=== PATIENT | female | born 1950 | race Caucasian/White ===

== ENCOUNTER 2024-02-04 07:35 | Inpatient (IN) ==
--- NOTE | 2024-02-04 08:04 | Emergency Department Note ---
Impression & Plan Compression fracture of lumbosacral spine ADMIT ED Provider Note HPI: History obtained from patient and daughter at bedside. The patient is a 73-year-old female who presents emergency department with a chief complaint of ongoing back pain for the past several weeks. Patient was seen here in the emergency department 3 days ago and diagnosed with chronic appearing compression fractures in the lumbar spine following x-ray imaging. Patient states that today her pain was worse and she was having trouble getting out of bed. She think she might benefit from inpatient rehab. On arrival here to the ED the patient is otherwise hemodynamically stable, she is in no acute distress on my initial assessment. ROS: - Per HPI Differential Diagnosis: Compression fractures of the lumbar spine, cauda equina syndrome, spinal stenosis, sciatica, lumbar muscle strain, amongst other potential pathologies. *Outpatient medications and allergy history reviewed. PE: General: Alert HEENT: Normocephalic, trachea midline Eyes: Extraocular eye movement is intact, no scleral erythema Pulmonary: Clear to auscultation bilaterally, no wheezing Cardio: Regular rate and rhythm GI: Abdomen is soft to palpation : No suprapubic tenderness MSK: No evidence of trauma or malformation of the extremities, no edema, no midline tenderness of the lumbar spine with palpation, no step-off deformity Skin: No evidence of rash Neuro: Alert, no focal deficits, patient maintains motor and sensory function intact distally in the bilateral lower extremities Psychiatric: Cooperative INDEPENDENT INTERPRETATIONS: caretaker: (As interpreted by myself): - An order was placed for continuous cardiac monitoring - Patient was noted to be in sinus rhythm with a rate of 82 Interventions provided in ED: -IV morphine, IV Zofran, IV fluid bolus Medical Decision Making: IV was established and lab work obtained, patient was placed on cardiac rehabilitation program director. Lab work shows no leukocytosis, hemoglobin is 10.0, platelet count is normal, CMP does not show any critical findings. CT imaging of the lumbar spine was obtained that shows acute to subacute appearing endplate compression fracture at the L2 level. There are also chronic appearing compression fractures noted at L3 and L4. On my reassessment the patient states her pain is improved but she does not feel comfortable with discharge home as she believes she cannot ambulate and take care of herself at home appropriately. Patient requests assessment for inpatient physical therapy. I did consult case management and there are no beds available at [facility]. Case was therefore discussed with the [facility] hospitalist service and the patient was placed for admission in stable condition to the service of Dr. Mccrary. Consultants/Discussions held with other healthcare providers: -Dr. Mccrary, Hospitalist Disposition discussion held by myself with: -Patient and daughter Diagnosis: 1. Compression fractures of the lumbar spine, acute, L2 level 2. Multiple chronic appearing compression fractures of the lumbar spine, L3 and L4 level 3. Ambulatory dysfunction, acute Disposition: Admission Brad Colorado DO Emergency Medicine Past Med/Surg History Medical History (Updated 02/04/24 @ 12:53 by Brad Colorado DO) History of breast cancer GERD (gastroesophageal reflux disease) Persistent atrial fibrillation Vascular dementia Hypothyroidism History of stroke Diabetes mellitus Surgical History Hx of cholecystectomy H/O section H/O gastric bypass Left ulnar fracture s/p surgical repair 01/02/24 at [facility] Family History Other Breast cancer Diabetes Hypertension Social History Smoking Status: Never smoker Preferred Language: Bulgarian Feels Safe at Home: Yes Allergies Allergies Allergy/AdvReac Type Severity Reaction Status Date / Time Penicillins Allergy Intermediate Hives Verified 02/04/24 09:38 Sulfa (Sulfonamide AdvReac Severe SEVERE Verified 02/04/24 09:38 Antibiotics) NAUSEA Home Meds Home Medications Medication Instructions Recorded Confirmed apixaban 5 mg tablet (Eliquis) 5 mg PO AMHS 12/13/23 02/04/24 lorazepam 0.5 mg tablet (Ativan) 0.5 mg PO Q8 PRN Anxiety 12/13/23 02/04/24 metformin 500 mg tablet 0 mg PO BIDM 12/13/23 02/04/24 pantoprazole 40 mg tablet,delayed 40 mg PO QAM 12/13/23 02/04/24 release semaglutide 1 mg/dose (4 mg/3 mL) 1 mg subcut WK 12/13/23 02/04/24 subcutaneous pen injector (Ozempic) aspirin 81 mg tablet,delayed 81 mg PO DAILY 02/01/24 02/04/24 release atorvastatin 40 mg tablet 40 mg PO QAM 02/01/24 02/04/24 levothyroxine 125 mcg tablet 125 mcg PO DAILYBB 02/01/24 02/04/24 metoprolol tartrate 25 mg tablet 12.5 mg PO AMHS 02/01/24 02/04/24 oxycodone 5 mg tablet 5 mg PO BID PRN mod or severe pain 02/01/24 02/04/24 verapamil 80 mg tablet 80 mg PO AMHS 02/01/24 02/04/24 prednisone 20 mg tablet 20 mg PO QAM 02/04/24 02/04/24 Results & Data (ED) Vital Signs Vital Signs - 24 hr 02/04/24 07:40 02/04/24 08:13 02/04/24 08:41 Temperature 36.7 C Temperature Source Temporal Artery Scan Pulse Rate 78 78 Pulse Rate [Left Finger] 60 Pulse Rate from SpO2 Sensor Pulse Rhythm Regular Pulse Rhythm [Left Finger] Regular Pulse Strength Normal Pulse Strength [Left Finger] Normal Respiratory Rate 18 20 18 Respiratory Effort / Characteristics Non-Labored Spontaneous Non-Labored Spontaneous Respiratory Depth Normal Normal Respiratory Pattern Regular Regular Blood Pressure 180/69 H Blood Pressure [Right Arm] 184/97 H Blood Pressure Mean 106 Blood Pressure Mean [Right Arm] 126 Blood Pressure Position Sitting Blood Pressure Position [Right Arm] Sitting Pulse Oximetry 100 100 96 Oxygen Delivery Method Room Air Room Air Room Air Sepsis Recent Fever Within 48 Hours No Sepsis New/Unexplained Change in Mental Status No Sepsis Action Taken by Nursing No Action Required 02/04/24 08:41 02/04/24 09:00 02/04/24 09:07 Temperature Temperature Source Pulse Rate 74 68 64 Pulse Rate [Left Finger] Pulse Rate from SpO2 Sensor 69 68 Pulse Rhythm Pulse Rhythm [Left Finger] Pulse Strength Pulse Strength [Left Finger] Respiratory Rate 16 11 L Respiratory Effort / Characteristics Respiratory Depth Respiratory Pattern Blood Pressure 184/97 H 182/98 H Blood Pressure [Right Arm] Blood Pressure Mean 126 126 Blood Pressure Mean [Right Arm] Blood Pressure Position Blood Pressure Position [Right Arm] Pulse Oximetry 99 98 Oxygen Delivery Method Sepsis Recent Fever Within 48 Hours Sepsis New/Unexplained Change in Mental Status Sepsis Action Taken by Nursing 02/04/24 09:30 02/04/24 09:56 02/04/24 10:00 Temperature Temperature Source Pulse Rate 61 66 65 Pulse Rate [Left Finger] Pulse Rate from SpO2 Sensor 63 65 65 Pulse Rhythm Pulse Rhythm [Left Finger] Pulse Strength Pulse Strength [Left Finger] Respiratory Rate 12 15 19 Respiratory Effort / Characteristics Respiratory Depth Respiratory Pattern Blood Pressure 174/87 H 193/91 H 181/93 H Blood Pressure [Right Arm] Blood Pressure Mean 116 125 122 Blood Pressure Mean [Right Arm] Blood Pressure Position Blood Pressure Position [Right Arm] Pulse Oximetry 94 98 98 Oxygen Delivery Method Sepsis Recent Fever Within 48 Hours Sepsis New/Unexplained Change in Mental Status Sepsis Action Taken by Nursing Laboratory Data 02/04/24 08:05 02/04/24 08:05 Lab Results 02/04/24 Range/Units 08:05 WBC 8.82 (4.8-10.8) K/ul RBC 3.95 L (4.20-5.40) M/uL Hgb 10.0 L (12.0-16.0) g/dl Hct 32.5 L (37.0-47.0) % MCV 82.3 (80.0-100.0) fL MCH 25.3 (25.0-34.0) pg MCHC 30.8 L (32.0-36.0) g/dL RDW Std Deviation 46.5 H (36.4-46.3) fL RDW Coeff of Valentina 15.3 H (11.5-14.5) % Plt Count 204 (130-400) K/uL MPV 11.1 (9.4-12.4) fL Immature Gran % (Auto) 0.3 % Neut % (Auto) 71.5 % Lymph % (Auto) 19.7 % [place] % (Auto) 7.9 % Eos % (Auto) 0.1 % Baso % (Auto) 0.5 % Neut # (Auto) 6.30 (1.40-6.50) K/uL Lymph # (Auto) 1.74 (1.20-3.40) K/uL [place] # (Auto) 0.70 H (0.11-0.59) K/uL Eos # (Auto) 0.01 (0.00-0.50) K/uL Baso # (Auto) 0.04 (0.00-0.20) K/uL Immature Gran # (Auto) 0.03 (0.01-0.20) K/uL PT 11.1 (9.0-12.0) Seconds INR 1.0 (0.9-1.1) Sodium 139 (136-145) mmol/L Potassium 4.1 (3.5-5.1) mmol/L Chloride 106 (98-107) mmol/L Carbon Dioxide 26 (21-32) mmol/L Anion Gap 7 (3-11) BUN 15 (6-23) mg/dl Creatinine 0.67 (0.6-1.2) mg/dl Est Cr Clr Drug Dosing 67.6 ml/min Est GFR ( Amer) 100.4 ml/min Est GFR (Non-Af Amer) 86.6 ml/min BUN/Creatinine Ratio 22.4 H (10-20) Glucose 145 H (70-99(Fasting)) mg/dl Calcium 9.5 (8.6-10.3) mg/dl Total Bilirubin 0.4 (0.2-1.0) mg/dl AST 13 (13-39) U/L ALT 11 (7-52) U/L Alkaline Phosphatase 77 (34-104) U/L Total Protein 6.3 (6.0-8.3) gm/dl Albumin 3.6 (3.4-5.0) gm/dl Globulin 2.7 (2.5-4.0) gm/dl Albumin/Globulin Ratio 1.3 (0.9-2) Lipase 14 (11-82) U/L Administered Medications Discontinued Medications Sodium Chloride (Nss) 500 mls @ 999 mls/hr IV .Q31M ONE Stop: 02/04/24 08:58 Last Infusion: 02/04/24 09:17 Dose: Infused Documented By: Admin: 02/04/24 08:43 Dose: 999 mls/hr Documented By: AMEYA Morphine Sulfate (Morphine Sulfate 2 Mg/Ml Carp) 2 mg IV NOW STA Stop: 02/04/24 08:29 Last Admin: 02/04/24 08:43 Dose: 2 mg Documented By: AMEYA Ondansetron HCl (Ondansetron Inj 2 Mg/Ml 2 Ml Vial) 4 mg IV NOW STA Stop: 02/04/24 08:29 Last Admin: 02/04/24 08:43 Dose: 4 mg Documented By: AMEYA Imaging Data Radiologist's Impression: Lumbar Spine CT 02/04/24 08:01 CT SCAN OF THE LUMBAR SPINE WITHOUT IV CONTRAST CLINICAL HISTORY: Fall several weeks previous. Low back pain. COMPARISON STUDY: Lumbar spine radiographs dated 02/01/2024. TECHNIQUE: CT scan of the lumbar spine is performed from the lower thoracic spine to the sacrum. Images are reviewed in the axial, sagittal, and coronal planes. IV contrast was not administered for this examination. A dose lowering technique was utilized adhering to the principles of ALARA. CT DOSE: 1342.54 mGy.cm FINDINGS: The skeletal structures are osteopenic. There is an acute appearing inferior endplate compression fracture of L2. Paravertebral edema is seen at this level. There is only minimal loss of height. Inferior fragments are retropulsed by up to 5 mm. This does not contribute to significant central canal stenosis. There are chronic appearing inferior endplate compression deformities of L3 and L4, also with minimally retropulsed fragments. Vertebral body height is maintained at L1 and L5. Alignment is preserved. There is straightening of the lumbar lordosis. Anterior and lateral marginal osteophytes are seen throughout. The transverse and spinous processes appear intact. There is no spondylolysis. No lytic or blastic lesion is seen. There is minimal degenerative disc space narrowing throughout the lumbar spine. Posterior disc osteophyte complexes are noted at most levels. There is no CT evidence of large disc herniation or high-grade central canal stenosis. Facet arthropathy is noted in the lower lumbar region. The visualized sacrum and bony pelvis appear intact. There is fatty atrophy of the paraspinous musculature. The abdominal aorta is normal in course and caliber noting advanced atherosclerotic calcification. There are calcified splenic granulomas. IMPRESSION: 1. [id number] inferior endplate compression fracture of L2 as above. There is only minimal loss of height and mild retropulsion of fragments. This does not contribute to significant central canal stenosis. 2. Chronic appearing inferior endplate compression deformities are noted in L3 and L4. 3. Osteopenia and spondylotic changes above. ACT 112: Negative or not required by law. Dictated: 02/04/2024 8:55 AM Transcribed: 02/04/2024 9:12 AM Devyn [id number] [email or web address]_Charles Electronically signed by: Gurjit Madrigal M.D. 02/04/2024 9:19 AM Discharge Plan Visit Data Chief Complaint: Back Injury/Pain Stated Complaint: BACK PAIN ED Provider: Brad Colorado Discharge Problem: Compression fracture of lumbosacral spine Discharge Instructions Interventions: ED Discharge Assessment Last Done: 02/04/24 12:04 Discharge Problem: Compression fracture of lumbosacral spine Qualifiers: Encounter type: subsequent encounter Fracture type: closed Fracture healing: w ith routine healing Qualified Code(s): S32.000D - Wedge compression fracture of unspecified lumbar vertebra, subsequent encounter for fracture with routine healing
[2024-02-04 08:25] LABS: Basophils # (auto) 0.04 K/uL (0.00-0.20); Basophils % (auto) 0.5 %; Eosinophils # (auto) 0.01 K/uL (0.00-0.50); Eosinophils % (auto) 0.1 %; Hematocrit (blood only) 32.5 % (37.0-47.0); Immature Granulocytes # (auto) 0.03 K/uL (0.01-0.20); Immature Granulocytes % (auto) 0.3 %; Lymphocytes # (auto) 1.74 K/uL (1.20-3.40); Lymphocytes % (auto) 19.7 %; Mean Corpuscular Hemoglobin 25.3 pg (25.0-34.0); Mean Corpuscular Hgb Conc 30.8 g/dL (32.0-36.0); Mean Corpuscular Volume 82.3 fL (80.0-100.0); Mean Platelet Volume 11.1 fL (9.4-12.4); Monocytes % (auto) 7.9 %; Neutrophils % (auto) 71.5 %; Platelet Count 204 K/uL (130-400); RDW Coefficient of Variation 15.3 % (11.5-14.5); RDW Standard Deviation 46.5 fL (36.4-46.3); Red Blood Count 3.95 M/uL (4.20-5.40); White Blood Count 8.82 K/ul (4.8-10.8)
[2024-02-04] MEDS: ONDANSETRON INJ 2 MG/ML 2 ML VIAL IV STA (08:43)
[2024-02-04] MEDS: SODIUM CHLORIDE 0.9% 500 ML IV ONE (08:43)
[2024-02-04] MEDS: MoRPHine SULFATE 2 MG/ML CARP IV STA (08:43)
[2024-02-04 08:45] LABS: Albumin Globulin Ratio 1.3 (0.9-2); Albumin Level 3.6 gm/dl (3.4-5.0); BUN Creatinine Ratio 22.4 (10-20); Bilirubin,Total 0.4 mg/dl (0.2-1.0); Calcium 9.5 mg/dl (8.6-10.3); Creatinine Clr Calc Pharmacy 67.6 ml/min; Est GFR (African American) 100.4 ml/min; Est GFR (Non-African American) 86.6 ml/min; Globulin 2.7 gm/dl (2.5-4.0); Potassium 4.1 mmol/L (3.5-5.1); Total Protein 6.3 gm/dl (6.0-8.3)
[2024-02-04 08:58] LABS: Prothrombin Time 11.1 Seconds (9.0-12.0)
--- NOTE | 2024-02-04 09:20 | CT Scan Report ---
CT SCAN OF THE LUMBAR SPINE WITHOUT IV CONTRAST CLINICAL HISTORY: Fall several weeks previous. Low back pain. COMPARISON STUDY: Lumbar spine radiographs dated 02/01/2024. TECHNIQUE: CT scan of the lumbar spine is performed from the lower thoracic spine to the sacrum. Imag es are reviewed in the axial, sagittal, and coronal planes. IV contrast was not administered for this examination. A dose lowering technique was utilized adhering to the principles of ALARA. CT DOSE: 1342.54 mGy.cm FINDINGS: The skeletal structures are osteopenic. There is an acute appearing inferior endplate compr ession fracture of L2. Paravertebral edema is seen at this level. There is only minimal loss of heigh t. Inferior fragments are retropulsed by up to 5 mm. This does not contribute to significant central canal stenosis. There are chronic appearing inferior endplate compression deformities of L3 and L4, a lso with minimally retropulsed fragments. Vertebral body height is maintained at L1 and L5. Alignment is preserved. There is straightening of the lumbar lordosis. Anterior and lateral marginal osteophyt es are seen throughout. The transverse and spinous processes appear intact. There is no spondylolysis . No lytic or blastic lesion is seen. There is minimal degenerative disc space narrowing throughout t he lumbar spine. Posterior disc osteophyte complexes are noted at most levels. There is no CT evidenc e of large disc herniation or high-grade central canal stenosis. Facet arthropathy is noted in the lo wer lumbar region. The visualized sacrum and bony pelvis appear intact. There is fatty atrophy of the paraspinous musculature. The abdominal aorta is normal in course and caliber noting advanced atheros clerotic calcification. There are calcified splenic granulomas. IMPRESSION: 1. [id number] inferior endplate compression fracture of L2 as above. There is only minimal los s of height and mild retropulsion of fragments. This does not contribute to significant central canal stenosis. 2. Chronic appearing inferior endplate compression deformities are noted in L3 and L4. 3. Osteopenia and spondylotic changes above. ACT 112: Negative or not required by law. Dictated: 02/04/2024 8:55 AM Transcribed: 02/04/2024 9:12 AM Devyn [id number] [facility] Electronically signed by: Gurjit Madrigal M.D. 02/04/2024 9:19 AM
--- OUTSIDE RECORDS SUMMARY | 2024-02-04 09:20 | External Medical Summary | Summary of Care ---
Author Name Unknown Organization [facility] Address [address] [facility] [place] [address] Phone [phone] Care Team Providers Care Re Etcher Name Role Phone George Lynn DO Primary Care Provider [phone] Reason for Visit * Reason Onset Date Comments Medication Refill 02/01/2024 Encounter Details Date Type Department Care Team (Late st Contact Info) Description 02/01/2024 Refill Family Practice [facility] [address] [facility] [place] [address] George Lynn DO [address] [facility] [place] [address] Allergies Active Allergy Reactions Criticality Noted Date Comments Penicillins 12/17/2023 documented as of this encounter (statuses as of 02/03/2024) Medications Medication Sig Dispensed Refills Start Date End Date Status Apixaban 5 MG Oral Tablet (Eliquis) Take 1 Tablet by mouth in the morning and 1 Tablet before bedtime. 60 Tablet 0 12/30/2023 Active Aspirin 81 MG Oral Tablet Delayed Release (SB Low Dose ASA EC) Take 1 Tablet by mouth in the morning. 30 Tablet 0 12/30/2023 Active Atorvastatin Calcium 40 MG Oral Tablet (Lipitor) Take 1 Tablet by mouth in the morning. 30 Tablet 0 12/30/2023 Active Levothyroxine Sodium 125 MCG Oral Tablet (Levoxyl) Take 1 Tablet by mouth daily first thing in the morning. (at least 30 min prior to breakfast or other meds) 30 Tablet 0 12/30/2023 Active LORazepam 0.5 MG Oral Tablet (Ativan) Take 1 Tablet by mouth every 8 hours as needed for Anxiety. 90 Tablet 0 12/30/2023 Active metFORMIN HCl 500 MG Oral Tablet (Glucophage) Take 1 Tablet by mouth 2 times a day with morning and evening meals. 60 Tablet 0 12/30/2023 Active Metoprolol Tartrate 25 MG Oral Tablet (Lopressor) Take 0.5 Tablets by mouth in the morning and 0.5 Tablets before bedtime. 30 Tablet 0 12/30/2023 Active Ozempic (1 MG/DOSE) 2 MG/1.5ML Subcutaneous Solution Pen-injector (Semaglutide (1 MG/DOSE)) Inject 1 mg under the skin once a week. 2 Each 0 12/30/2023 Active Pantoprazole Sodium 40 MG Oral Tablet Delayed Release (Protonix) Take 1 Tablet by mouth in the morning. 30 Tablet 0 12/30/2023 Active oxyCODONE HCl 5 MG Oral Tablet (Oxy IR) Take 1 Tablet by mouth 2 times a day as needed for Pain, Moderate or Pain, Severe. 15 Tablet 0 01/29/2024 Active Verapamil HCl 80 MG Oral Tablet (Isoptin) Take 1 Tablet by mouth in the morning and 1 Tablet before bedtime. 60 Tablet 5 02/03/2024 Active Verapamil HCl 80 MG Oral Tablet (Isoptin) Take 1 Tablet by mouth in the morning and 1 Tablet before bedtime. 60 Tablet 0 12/30/2023 02/01/2024 Discontinue d(Refill) documented as of this encounter (statuses as of 02/03/2024) Active Problems Problem Noted Date Diagnosed Date Diabetes mellitus without complication 4 Postoperative hypothyroidism 12/30/2023 Vascular dementia 12/30/2023 Pure hypercholesterolemia 12/30/2023 History of thyroid cancer 12/30/2023 History of breast cancer 12/30/2023 Longstanding persistent atrial fibrillation 12/18 Gastroesophageal reflux disease 12/30/2023 Pre-operative general physical examination 12/29 Olecranon fracture, left, cl osed, with routine healing, subsequent encounter 12/23/2023 Overview: Changed initial encounter to subsequent 01/15/24 HL documented as of this encounter (statuses as of 02/03/2024) Social History Tobacco Use Types Packs/Day Years Used Date Smoking Tobacco: Never Smokeless Tobacco: Never Alcohol Use Standard Drinks/Week Comments Never 0 (1 standard drink = 0.6 oz pur e alcohol) PHQ-2 Answer Date Recorded PHQ Adult Total Score 0 01/08/2024 Hunger Vital Sign Answer Date Recorded Within the past 12 months, y ou worried that your food would run out before you got the money to buy more. Never true 01/14/20 24 Within the past 12 months, t he food you bought just didn't last and you didn't have money to get more. Never true 01/14/2024 Sex and Gender Information Value Date Recorded Sex Assigned at Female 01/27/2024 8:14 PM EDT Gender Identity Female 01/27/2024 8:14 PM EDT Sexual Orientation Straight 01/27/2024 8: 14 PM EDT Job Start Date Occupation Industry Not on file Not on file Not on file documented as of this encounter Miscellaneous Notes * Telephone Encounter - George Lynn DO - 02/03/2024 1:40 PM EDTSigned Prescriptions: Disp Refills Verapamil HCl 80 MG Oral Tablet (Isoptin) 60 Tab*5 Sig: Take 1 Tablet by mouth in the morning and 1 Tablet before bedtime. Authorizing Provider: GEORGE LYNN * Telephone Encounter - Griselda Lucio [facility] - 02/03/2024 9:54 AM EDTPending Prescriptions: Disp Refills Verapamil HCl 80 MG Oral Tablet (Isoptin) 60 Tab*5 Sig: Take 1 Tablet by mouth in the morning and 1 Tablet before bedtime. * Telephone Encounter - Griselda Lucio RPh - 02/03/2024 9:53 AM EDT Please approve if patient is to continue. Did you pend patient's preferred pharmacy and medication before forwarding?yes Pharmacy: [facility] [id number] [address] Pending Prescriptions: Disp Refills Verapamil HCl 80 MG Oral Tablet (Isoptin) 60 Tab*5 Sig: Take 1 Tablet by mouth in the morning and 1 Tablet before bedtime. Last Visit: 12/30/2023 (in office), Visit date not found (telemedicine) Next Visit: 07/13/2024 If no future appointments scheduled, and last appointment is greater than a year ago, please schedule patient for a follow-up appointment Last date the medication was ordered: 12/30/23 Is this request for a controlled substance?No Urine Drug Screen:No results found for this or any previous visit. Patient Phone Numbers Labs: Lab Results Component Value Date/Time CREAT 0.7 12/30/2023 10:51 AM POTASSIUM 5.1 12/30/2023 10:51 AM TSH 1.16 12/30/2023 10:51 AM ALT 14 12/30/2023 10:51 AM HGBA1C 7.0 (H) 12/30/2023 10:51 AM HGBA1C 7.0 (H) 08/05/2023 04:47 AM documented in this encounter Plan of Treatment Upcoming Encounters Date Type Department Care Team (Late st Contact Info) Description 02/09/2024 9:30 AM EDT Pharmacy Family Practice [address] [facility] [address] [place] [address] College, Pharmacist [address] [place] [address] 02/09/2024 10:00 AM EDT Office Visit Family Practice [address] [address] [place] [address] Rachel Hooks, DO [address] [facility] [place] [address] 02/17/2024 12:45 PM EDT Office Visit Orthopaedics [facility] [address] [facility] [address] Zachary Reese, DO [address] [facility] [place] [address] 03/02/2024 1:00 PM EDT Office Visit Cardiology, [facility] [address] [place] [address] Deondre Gordillo, DO [address] [facility] [place] [address] 07/13/2024 5:40 PM EDT Office Visit Family Practice [facility] [address] [place] [address] George Lynn, DO 200 [place] [address] Health Maintenance Due Date Last Done Comments Lipid Panel 1949 Albumin/Creatinine Ratio 1967 Diabetic Eye Exam 1967 Diabetic Foot Exam 1967 Hepatitis C Screening 1967 DTaP,Tdap,and Td Vaccines (1 - Tdap) 1968 Cologuard 1994 Colonoscopy 1994 Colorectal Cancer Screening 1994 Fecal Occult Blood Test 1994 Sigmoidoscopy 1994 Zoster Vaccines (2 of 3) 11/19/2010 09/24/2010 COVID-19 Vaccine ( season) 2023 04/10/2022, 11/02/2021, 02/05/2021, Additional history exists Mammogram 03/19/2024 03/19/2023, 02/18, 03/30/2021, Additional history exists HbA1c 07/01/2024 12/30/2023, 07/20, 03/25/2023, Additional history exists GFR 12/29/2024 12/30/2023 TSH 12/29/2024 12/30/2023 Depression Screening 01/07/2025 01/08/2024 DXA Scan 03/05/2031 03/05/2021, 02/17, 10/03/2016, Additional history exists Pneumococcal Vaccine: 65+ Years Completed 02/08/2019, 2015, 08/24/2013 Influenza Vaccine (FLU shot) Completed 12/2022, 06/26/2022, 07/09/2021, Additional history exists GARDASIL-HPV IMMUNIZATION SERIES Aged Out No longer eligible based on patient's age to complete this topic Hepatitis B Aged Out No longer eligi ble based on patient's age to complete this topic MENINGOCOCCAL (MENACTRA/MENVEO) Aged Out No longer eligible based on patient's age to complete this topic documented as of this encounter Medical Devices Implanted Type Area Soccer Coach Device Identifier Shelf Expiration Date Model / Serial / Lot Olecranon Plate Implanted:Qty: 1 on 01/02/2024 by Zachary Reese DO at [facility] Left: Elbow [id number] / / Screw Bn T10 Ft [employer] Lk 3.5x18mm - [id number] Implanted:Qty: 2 on 01/02/2024 by Zachary Reese DO at [facility] Left: Elbow ADILIA : ORTHOPAEDICS [id number] / / Screw Bn T10 Ft [address] Lk 3.5x20mm - [id number] Implanted:Qty: 1 on 01/02/2024 by Zachary Reese DO at [facility] Left: Elbow ADILIA : ORTHOPAEDICS [id number] / / Screw Cortical 3.5x20 - [id number] Implanted:Qty: 1 on 01/02/2024 by Zachary Reese DO at [facility] Left: Elbow AIDLIA : ORTHOPAEDICS [id number] / / Screw Bn T10 Ft [address] Lk 3.5x50mm - [id number] Implanted:Qty: 1 on 01/02/2024 by Zachary Reese DO at OR [facility] Left: Elbow ADILIA : ORTHOPAEDICS [id number] / / documented as of this encounter Advance Directives Latest Code Status on File Code Status Date Activated Date Inactivated Comments Full Code 01/02/2024 11:34 AM 01/02/2024 5:05 PM This order reflects the patients wishes and were consensually agreed upon. Question Answer Comments Discussion of Advance Directives occurred with: Not Discussed due to patient's condition Care Teams Re Etcher Relationship Specialty Start Date End Date George Lynn DO [address] [place] [address] PCP - General Family Medicine 01/02/24 documented as of this encounter
--- NOTE | 2024-02-04 10:18 | History & Physical Report ---
Date of Service February 04, 2024 Assessment & Plan (1) Lower back pain: (2) Lumbar compression fracture: (3) Lightheadedness: (4) Vascular dementia: (5) Diabetes mellitus: (6) Persistent atrial fibrillation: (7) History of stroke: (8) GERD (gastroesophageal reflux disease): (9) Hypothyroidism: Plan This is a 73yo F with a PMH of atrial fibrillation on anticoagulation, history of stroke, DM II, hypothyroidism, vascular dementia, h/o breast cancer s/p lumpectomy, chemo and XRT, and other medical problems listed below who presents with worsening back pain over the past few days and was found to have an L2 compression fracture. DVT Ppx: Eliquis Code status: FULL CODE PCP: Roshni Cobb Dispo: Admit to med/tele, likely to need rehab placement I spent a total of 75 minutes coordinating, documenting, and providing care for this patient excluding time spent in the performance of separately billed services. Patient seen in collaboration with Dr. Mccrary. Please see addendum. History of Present Illness Chief Complaint: back pain Primary Care Provider: Uriel Cobb, This is a 73yo F with a PMH of atrial fibrillation on anticoagulation, history of stroke, DM II, hypothyroidism, vascular dementia, h/o breast cancer s/p lumpectomy, chemo and XRT, and other medical problems listed below who presents with worsening back pain over the past few days. Patient had a fall at home 3 weeks ago causing elbow injury that required surgery. Left arm is in sling and has been improving but presented to ED a few days ago with worsening back pain. Pain is across in a bandlike distribution near waistband. Also having more ambulatory dysfunction at home and daughter feels she is unsafe to be ambulating without assistance. Does not use a cane/walker at baseline. Daughter lives nearby but feels that patient needs to go to rehab. No ambulatory dysfunction at baseline. Noting lightheadedness and feeling off balance with ambulation, needing to grab onto scanlon for support. Denies any CP or palpitations. Has been taking all meds as prescribed as well as prednisone 20mg daily and oxycodone PRN prescribed by ED a few days ago for back pain. No F/C, N/V, abd pain, dysuria, diarrhea or constipation. Allergies Allergy/AdvReac Type Severity Reaction Status Date / Time Penicillins Allergy Intermediate Hives Verified 02/04/24 09:38 Sulfa (Sulfonamide AdvReac Severe SEVERE Verified 02/04/24 09:38 Antibiotics) NAUSEA Home Medications Medication Instructions Recorded Confirmed Type apixaban 5 mg tablet (Eliquis) 5 mg PO AMHS 12/13/23 02/04/24 History lorazepam 0.5 mg tablet (Ativan) 0.5 mg PO Q8 PRN Anxiety 12/13/23 02/04/24 History metformin 500 mg tablet 0 mg PO BIDM 12/13/23 02/04/24 History pantoprazole 40 mg tablet,delayed 40 mg PO QAM 12/13/23 02/04/24 History release semaglutide 1 mg/dose (4 mg/3 mL) 1 mg subcut WK 12/13/23 02/04/24 History subcutaneous pen injector (Ozempic) aspirin 81 mg tablet,delayed 81 mg PO DAILY 02/01/24 02/04/24 History release atorvastatin 40 mg tablet 40 mg PO QAM 02/01/24 02/04/24 History levothyroxine 125 mcg tablet 125 mcg PO DAILYBB 02/01/24 02/04/24 History metoprolol tartrate 25 mg tablet 12.5 mg PO AMHS 02/01/24 02/04/24 History oxycodone 5 mg tablet 5 mg PO BID PRN mod or severe pain 02/01/24 02/04/24 History verapamil 80 mg tablet 80 mg PO AMHS 02/01/24 02/04/24 History prednisone 20 mg tablet 20 mg PO QAM 02/04/24 02/04/24 History Past Med/Surg History Medical History (Updated 02/04/24 @ 11:30 by Delfina Jernigan PA-C) History of breast cancer GERD (gastroesophageal reflux disease) Persistent atrial fibrillation Vascular dementia Hypothyroidism History of stroke Diabetes mellitus Surgical History Hx of cholecystectomy H/O section H/O gastric bypass Left ulnar fracture s/p surgical repair 01/02/24 at [facility] Family History Other Breast cancer Diabetes Hypertension Social History Smoking Status: Never smoker Preferred Language: Romansh Feels Safe at Home: Yes Review of Systems Review of Systems: At least ten systems reviewed and negative except as noted in the HPI. Physical Exam Physical Exam: Please see Dr. Mccrary' addendum for physical exam. Results & Data Results & Data Vital Signs (Past 12 Hours) Vital Signs Temp Pulse Pulse Resp BP BP Pulse Ox 02/04/24 09:07 64 02/04/24 08:41 60 18 184/97 H 96 02/04/24 08:13 78 20 100 02/04/24 07:40 36.7 C 78 18 180/69 H 100 O2 Del Method 02/04/24 09:07 02/04/24 08:41 Room Air 02/04/24 08:13 Room Air 02/04/24 07:40 Room Air Laboratory Results Short CBC 02/04/24 Range/Units 08:05 WBC 8.82 (4.8-10.8) K/ul Hgb 10.0 L (12.0-16.0) g/dl Hct 32.5 L (37.0-47.0) % Plt Count 204 (130-400) K/uL BMP 02/04/24 08:05 Sodium 139 Potassium 4.1 Chloride 106 Carbon Dioxide 26 BUN 15 Creatinine 0.67 Glucose 145 H Calcium 9.5 Liver Function 02/04/24 Range/Units 08:05 Total Bilirubin 0.4 (0.2-1.0) mg/dl AST 13 (13-39) U/L ALT 11 (7-52) U/L Alkaline Phosphatase 77 (34-104) U/L Albumin 3.6 (3.4-5.0) gm/dl Diagnostic Findings Lumbar Spine CT 02/04/24 08:01 CT SCAN OF THE LUMBAR SPINE WITHOUT IV CONTRAST CLINICAL HISTORY: Fall several weeks previous. Low back pain. COMPARISON STUDY: Lumbar spine radiographs dated 02/01/2024. TECHNIQUE: CT scan of the lumbar spine is performed from the lower thoracic spine to the sacrum. Images are reviewed in the axial, sagittal, and coronal planes. IV contrast was not administered for this examination. A dose lowering technique was utilized adhering to the principles of ALARA. CT DOSE: 1342.54 mGy.cm FINDINGS: The skeletal structures are osteopenic. There is an acute appearing inferior endplate compression fracture of L2. Paravertebral edema is seen at this level. There is only minimal loss of height. Inferior fragments are retropulsed by up to 5 mm. This does not contribute to significant central canal stenosis. There are chronic appearing inferior endplate compression deformities of L3 and L4, also with minimally retropulsed fragments. Vertebral body height is maintained at L1 and L5. Alignment is preserved. There is straightening of the lumbar lordosis. Anterior and lateral marginal osteophytes are seen throughout. The transverse and spinous processes appear intact. There is no spondylolysis. No lytic or blastic lesion is seen. There is minimal degenerative disc space narrowing throughout the lumbar spine. Posterior disc osteophyte complexes are noted at most levels. There is no CT evidence of large disc herniation or high-grade central canal stenosis. Facet arthropathy is noted in the lower lumbar region. The visualized sacrum and bony pelvis appear intact. There is fatty atrophy of the paraspinous musculature. The abdominal aorta is normal in course and caliber noting advanced atherosclerotic calcification. There are calcified splenic granulomas. IMPRESSION: 1. [id number] inferior endplate compression fracture of L2 as above. There is only minimal loss of height and mild retropulsion of fragments. This does not contribute to significant central canal stenosis. 2. Chronic appearing inferior endplate compression deformities are noted in L3 and L4. 3. Osteopenia and spondylotic changes above. ACT 112: Negative or not required by law. Dictated: 02/04/2024 8:55 AM Transcribed: 02/04/2024 9:12 AM Devyn [id number] [facility] Electronically signed by: Gurjit Madrigal M.D. 02/04/2024 9:19 AM ECG Additional Comments: admission EKG pending Supervising Physician Co-Signing Physician Notes I have seen and discussed the case with the collaborating advanced practitioner. I agree with the above H&P. I have reviewed and confirmed the patients medical history, the findings on physical examination, and the patients diagnosis and treatment plan with Delon OTTO and agree with the information documented. Ms. Farris is a 73 year old woman with history of recent left elbow fracture s/p ORIF 01/02/2024, HTN, prior gastric bypass, PAF on Eliquis, prior cardioembolic stroke per history, HLD and other medical problems below admitted for acute back pain 2/2 compression fractures. Patient presented to ED on 01/31 and started on prednisone for compression fracture, however, pain continued to worsen. Pain is predominately across low back without any radiculopathy, urinary or bowel perea ges. Patient otherwise endorses intermittent dizziness--this can happen at rest, in the midst of walking, or seated. She denies any vision or neurologic deficits. She denies prodromal symptoms. The symptoms are quick and resolve. Patient asymptomatic on exam, last episode days prior. Denies any missed medications. No chest pain, palpitations, fevers, chills, or other acute symptoms GENERAL APPEARANCE: AxOx4, generally well-appearing F, no acute distress. HEENT: NC, AT. MMM. EOMI, clear conjunctiva, oropharynx clear. NECK: Supple without lymphadenopathy. No stiffness or restricted ROM. HEART: Normal rate and regular rhythm, normal S1/S1, +KAMERON LUNGS: CTAB, moving air well. No crackles or wheezes are heard. ABDOMEN: Soft, nontender, nondistended with good bowel sounds heard. BACK: No CVAT, no obvious deformity. EXTREMITIES: Without cyanosis, clubbing. Nonpitting edema of ankles, at baseline. Left arm in sling. NEUROLOGICAL: Grossly nonfocal. Alert and oriented, moving all 4 extremities. CN not formally tested but appear grossly intact. Skin: Warm and dry without any rash. #Compression Fractures, L2 -CT with L2 compression fracture, no stenosis or cord compromise Orthotics for TLSO Pain management, schedule tylenol, 2.5-5 oxycodone prn, lidocaine patch PT/OT Pending placement with encompass Check Vit D in am Complete steroid burst #Recent mechanical fall s/p left elbow fracture #s/p left olecranon ORIF 01/02/2024 Left elbow in sling, follow up last with Ortho on 01/15 "passive range of motion through her left elbow with the assistance of her right arm" #Dizziness Reports intermittent dizziness, endorses compliance with medication No neurologic deficits, prior stroke 2/2 a fib marked by olfactory changes, resolved Orthostatics Monitor blood pressure and tele Resume metoprolol On verapamil 80mg BID, will resume half dosing and monitor blood pressure Monitor blood glucose as reportedly home BG in low 100s b12 and folate in am #HTN Verapamil 80mg BID, start at reduced 40/40 dosing given dizziness to assess for orthostasis Increase to home dosing as tolerated On admission, patient did not take medications #Paroxysmal Atrial Fibrillation Currently normal sinus, no recent ECHO on file KAMERON murmur on exam, noted in OP exam Given dizziness, will order ECHO Continue Metoprolol 12.5 mg BID for rate control Continue Eliquis Monitor on tele #Chronic anemia, microcytic #History of gastric bypass last b12 in 2021 relatively low at 275, folate in 2021 40 Ferritin in 2018 12, history of iron deficiency not on supplements -Anemia labs in am for optimization #Prior stroke, cardioembolic #HLD Eliquis as above Continue statin #DMTII On metformin and Ozempic Records report glucose in low 100s Given dizziness, consider hypoglycemia as contributing cause A1C: 7 12/2023 SSI while admitted, hold home oral regimen #Hypothyroidism TSH 12/2023 1.16 Continue synthroid DVT eliquis Admit med tele I spent a total of 35 minutes coordinating, documenting, and providing care for this patient excluding time spent in the performance of separately billed services. All of the aforementioned completed outside of collaborating with the assigned advanced practitioner for a full treatment plan. I have reviewed the advanced practitioner's documentation, and I agree with, and take responsibility for the plan of care (1) Lower back pain Back pain laterality: midline Chronicity: acute Sciatica presence: without sciatica Qualified Code(s): M54.50 - Low back pain, unspecified (2) Lumbar compression fracture Encounter type: initial encounter Lumbar vertebra fracture level: unspecified lumbar vertebra Qualified Code(s): S32.000A - Wedge compression fracture of unspecified lumbar vertebra, initial encounter for closed fracture
[2024-02-04] MEDS ORDERED: APIXABAN 5 MG TABLET PO SCH (10:45)
[2024-02-04] MEDS ORDERED: CARBOHYDRATES FOR HYPOGLYCEMIA PO PRN (11:08)
[2024-02-04] MEDS ORDERED: GLUCAGON FOR INJ 1 MG VIAL SQ PRN (11:08)
[2024-02-04] MEDS ORDERED: GLUCOSE 10 TAB/TUBE PO PRN (11:08)
[2024-02-04] MEDS ORDERED: GLUCOSE 40% GEL 15 GM TUBE PO PRN (11:08)
[2024-02-04] MEDS ORDERED: DEXTROSE 50% 50 ML SYRINGE IV PRN (11:08)
[2024-02-04] MEDS ORDERED: ONDANSETRON INJ 2 MG/ML 2 ML VIAL IV PRN (12:30)
[2024-02-04] MEDS: INSULIN ASPART PER UNIT CHARGE SC SCH (13:43)
[2024-02-04] MEDS: LIDOCAINE 5% 1 PATCH TD STA (13:44)
[2024-02-04] MEDS: APIXABAN 5 MG TABLET PO ONE (13:44)
[2024-02-04] MEDS: METOPROLOL TARTRATE 25 MG TAB PO ONE (13:44)
[2024-02-04] MEDS: VERAPAMIL HCL 180 MG TABCR PO STA (13:45)
[2024-02-04] MEDS: ACETAMINOPHEN 500 MG TAB PO SCH (13:45)
[2024-02-04] MEDS: oxyCODONE HCL IR 5 MG TAB (IMMEDIATE RELEASE) PO PRN (16:55)
[2024-02-04 17:37] LABS: Appearance Urine Clear (Clear); Bilirubin Urine Negative (Negative); Blood Urine Negative (Negative); Color Urine Yellow; Glucose Urine UA Negative (Negative); Ketones Urine Negative (Negative); Leukocyte Esterase Urine Negative (Negative); Nitrite Urine Negative (Negative); Protein Urine Negative (Negative); Specific Gravity Urine 1.006 (1.000-1.030); Urobilinogen Urine Negative (Negative)
[2024-02-04] MEDS: VERAPAMIL HCL 40 MG TAB PO SCH (20:05)
[2024-02-04] MEDS: METOPROLOL TARTRATE 25 MG TAB PO SCH (20:05)
[2024-02-04] MEDS: APIXABAN 5 MG TABLET PO SCH (20:05)
[2024-02-04] MEDS ORDERED: VERAPAMIL HCL 180 MG TABCR PO SCH (21:00)
[2024-02-04] MEDS ORDERED: VERAPAMIL HCL 40 MG TAB PO SCH (21:00)
[2024-02-05] MEDS: LEVOTHYROXINE SODIUM 125 MCG TABLET PO SCH (05:07)
[2024-02-05 07:33] LABS: Hematocrit (blood only) 32.2 % (37.0-47.0); Hemoglobin 10.1 g/dl (12.0-16.0); Mean Corpuscular Hemoglobin 25.4 pg (25.0-34.0); Mean Corpuscular Hgb Conc 31.4 g/dL (32.0-36.0); Mean Corpuscular Volume 80.9 fL (80.0-100.0); Mean Platelet Volume 10.7 fL (9.4-12.4); Platelet Count 206 K/uL (130-400); RDW Coefficient of Variation 15.5 % (11.5-14.5); RDW Standard Deviation 45.8 fL (36.4-46.3); Red Blood Count 3.98 M/uL (4.20-5.40); White Blood Count 8.42 K/ul (4.8-10.8)
[2024-02-05 07:54] LABS: BUN Creatinine Ratio 22.9 (10-20); Calcium 9.1 mg/dl (8.6-10.3); Creatinine Clr Calc Pharmacy 65.9 ml/min; Est GFR (African American) 98.9 ml/min; Est GFR (Non-African American) 85.4 ml/min; Potassium 4.2 mmol/L (3.5-5.1)
[2024-02-05 08:13] LABS: Ferritin 15.4 ng/ml (8-388)
[2024-02-05] MEDS: PANTOprazole 40 MG TAB PO SCH (08:16)
[2024-02-05] MEDS: predniSONE 20 MG TAB PO SCH (08:16)
[2024-02-05] MEDS: ATORVASTATIN 40 MG TAB PO SCH (08:16)
[2024-02-05 08:19] LABS: Folate (Folic Acid),Ser orPlas > 22.30 ng/ml (>5.38); Vitamin B12 150 pg/ml (180-914)
[2024-02-05] MEDS: CYANOCOBALAMIN 1000 MCG/ML VIAL IM ONE (09:26)
[2024-02-05] MEDS: FERROUS SULFATE 325 MG TAB PO SCH (09:26)
[2024-02-05] MEDS: IRON SUCROSE 300 MG in SODIUM CHLORIDE 0.9% 250 ML IV ONE (09:27)
[2024-02-05] MEDS: CHOLECALCIFEROL 125 MCG (5,000 UNITS) TAB PO SCH (10:26)
--- NOTE | 2024-02-05 15:41 | Hospitalist Progress Note ---
Date of Service February 05, 2024 Assessment & Plan (1) Lower back pain: (2) Lumbar compression fracture: (3) Lightheadedness: (4) Vascular dementia: (5) Diabetes mellitus: (6) Persistent atrial fibrillation: (7) History of stroke: (8) GERD (gastroesophageal reflux disease): (9) Hypothyroidism: Plan This is a 73yo F with a PMH of atrial fibrillation on anticoagulation, history of stroke, DM II, hypothyroidism, vascular dementia, h/o breast cancer s/p lumpectomy, chemo and XRT, and other medical problems listed below who presents with worsening back pain over the past few days and was found to have an L2 compression fracture. Compression Fractures, L2 Age related osteoporosis with current pathological fracture, lumbar vertebral --Lumbar CT: [id number] inferior endplate compression fracture of L2 as above. There is only minimal loss of height and mild retropulsion of fragments. This does not contribute to significant central canal stenosis.. Chronic appearing inferior endplate compression deformities are noted in L3 and L4. Osteopenia and spondylotic changes above. -- Pain control Continue TLSO brace Orthopedic consulted Completed prednisone course Fall precautions PT OT prior to discharge Recent mechanical fall s/p left elbow fracture s/p left olecranon ORIF 01/02/2024 Left elbow in sling, follow up last with Ortho on 01/15 "passive range of motion through her left elbow with the assistance of her right arm" Pain control Continue current management Dizziness Normal orthostatics No issues on monitor currently --ECHO: Mild concentric LVH. Basal septum is thickened and angulated consistent with sigmoid septum. EF 60 to 65%. Grade 2 diastolic dysfunction. Moderate mitral annular calcification with mild to moderate mitral regurgitation. Attic valve is moderately calcified. Mild aortic stenosis. Trace aortic regurgitation. Left atrium is moderately dilated. --Continue home medications Verapamil resumed at lower dose 40mg BID Currently dizziness resolved Monitor Iron, vitamin B12, vitamin D deficiency Started on supplements Will need repeat blood work as outpatient HTN Resumed verapamil 40 mg twice daily Continue metoprolol Monitor and adjust medications as needed Paroxysmal Atrial Fibrillation Continue metoprolol, verapamil On Eliquis for anticoagulation Chronic anemia, microcytic H/O Gastric bypass Started on iron supplements as above Prior CVA stroke, cardioembolic HLD Continue statin Also on Eliquis DM II On metformin and Ozempic HbA1C: 7 on 12/2023 Continue insulin while hospitalized Monitor BGs Hypothyroidism TSH 12/2023 1.16 Continue levothyroxine DVT Px: Eliquis CODE STATUS Full code Disposition PT OT recommends rehab Case management to help with discharge planning Admission and Anticipated Discharge Date Admission Date: February 04, 2024 Subjective Patient is seen and examined at bedside Dizziness resolved Reports having back pain which is controlled Offers no other complaints Denies any chest pain, dyspnea, nausea, vomiting, abdominal pain No other complaints Review of Systems Review of Systems: All systems reviewed & are unremarkable except as noted in Subjective Physical Exam Physical Exam: Physical Exam: Vitals signs as noted above General Appearance:Thin, frail, no apparent distress Head: normocephalic, Atraumatic Eyes: normal inspection, EOMI Neck: supple, Trachea midline Respiratory/Chest: Normal breath sounds, CTA, No accessory muscle use Cardiovascular: S1, S2, + murmur Abdomen/GI:Soft, Non tender, Bowel sounds present Extremities/Musculoskeletal:normal inspection, Trace edema, LUE in sling Neurologic/Psych:AAOX3, grossly no focal neurological deficits Skin: normal color, warm Results & Data Results & Data Vital Signs (Past 12 Hours) Vital Signs Temp Pulse Pulse Resp BP Pulse Ox Pulse Ox 02/05/24 15:23 36.8 C 70 18 127/69 95 02/05/24 14:52 72 02/05/24 12:30 96 02/05/24 11:41 36.9 C 68 15 127/75 96 02/05/24 08:17 37.0 C 72 18 170/72 H 97 02/05/24 07:30 02/05/24 07:21 65 02/05/24 03:54 36.7 C 68 18 141/76 H 95 O2 Del Method O2 Del Method 02/05/24 15:23 Room Air 02/05/24 14:52 02/05/24 12:30 Room Air 02/05/24 11:41 Room Air 02/05/24 08:17 Room Air 02/05/24 07:30 Room Air 02/05/24 07:21 02/05/24 03:54 Room Air Laboratory Results Short CBC 02/05/24 Range/Units 07:01 WBC 8.42 (4.8-10.8) K/ul Hgb 10.1 L (12.0-16.0) g/dl Hct 32.2 L (37.0-47.0) % Plt Count 206 (130-400) K/uL BMP 02/05/24 07:01 Sodium 138 Potassium 4.2 Chloride 106 Carbon Dioxide 25 BUN 16 Creatinine 0.70 Glucose 154 H Calcium 9.1 Urine 02/04/24 Range/Units Unknown Urine Color Yellow Urine Appearance Clear (Clear) Urine pH 6.0 (4.5-7.5) Ur Specific Marble 1.006 (1.000-1.030) Urine Protein Negative (Negative) Urine Glucose (UA) Negative (Negative) (1) Lower back pain Back pain laterality: midline Chronicity: acute Sciatica presence: without sciatica Qualified Code(s): M54.50 - Low back pain, unspecified (2) Lumbar compression fracture Encounter type: initial encounter Lumbar vertebra fracture level: unspecified lumbar vertebra Qualified Code(s): S32.000A - Wedge compression fracture of unspecified lumbar vertebra, initial encounter for closed fracture
[2024-02-05] MEDS: POLYETHYLENE (MIRALAX) 17 GM PACK PO PRN (18:36)
[2024-02-06 07:21] LABS: Hematocrit (blood only) 30.7 % (37.0-47.0); Hemoglobin 9.4 g/dl (12.0-16.0); Mean Corpuscular Hemoglobin 25.3 pg (25.0-34.0); Mean Corpuscular Hgb Conc 30.6 g/dL (32.0-36.0); Mean Corpuscular Volume 82.7 fL (80.0-100.0); Mean Platelet Volume 10.6 fL (9.4-12.4); Platelet Count 197 K/uL (130-400); RDW Coefficient of Variation 15.4 % (11.5-14.5); RDW Standard Deviation 46.3 fL (36.4-46.3); Red Blood Count 3.71 M/uL (4.20-5.40); White Blood Count 9.45 K/ul (4.8-10.8)
[2024-02-06 07:35] LABS: BUN Creatinine Ratio 25.7 (10-20); Calcium 8.5 mg/dl (8.6-10.3); Creatinine Clr Calc Pharmacy 62.3 ml/min; Est GFR (African American) 92.5 ml/min; Est GFR (Non-African American) 79.8 ml/min
--- NOTE | 2024-02-06 11:20 | Orthopedic Consultation ---
Date of Consultation February 06, 2024 Assessment & Plan (1) Compression fracture of lumbosacral spine: Assessment L2 compression fracture. Plan at that this time I had a lengthy discussion with patient regarding her imaging and clinical course. She appears to have an acute fracture of L2 which would explain her pain patterns. She is tolerating the brace and it is improving her function. At this point we would continue with observation. She is to lift no more than 5 pounds. If she fails to improve she may ultimately be a candidate for kyphoplasty. At this point she would like to avoid surgery. History of Present Illness Reason for Consultation: Back pain Attending Physician: Damion Blanchard MD History of Present Illness This is a very pleasant 73-year-old female presents yesterday with worsening back pain after a fall. This morning she states she is comfortable. She has been tolerating the brace. She has been able to ambulate to the bathroom on her own. She denies any numbness or tingling in the lower extremities or weakness. Allergies Allergy/AdvReac Type Severity Reaction Status Date / Time Penicillins Allergy Intermediate Hives Verified 02/04/24 09:38 Sulfa (Sulfonamide AdvReac Severe SEVERE Verified 02/04/24 09:38 Antibiotics) NAUSEA Home Medications Medication Instructions Recorded Confirmed Type apixaban 5 mg tablet (Eliquis) 5 mg PO AMHS 12/13/23 02/04/24 History lorazepam 0.5 mg tablet (Ativan) 0.5 mg PO Q8 PRN Anxiety 12/13/23 02/04/24 History metformin 500 mg tablet 0 mg PO BIDM 12/13/23 02/04/24 History pantoprazole 40 mg tablet,delayed 40 mg PO QAM 12/13/23 02/04/24 History release semaglutide 1 mg/dose (4 mg/3 mL) 1 mg subcut WK 12/13/23 02/04/24 History subcutaneous pen injector (Ozempic) aspirin 81 mg tablet,delayed 81 mg PO DAILY 02/01/24 02/04/24 History release atorvastatin 40 mg tablet 40 mg PO QAM 02/01/24 02/04/24 History levothyroxine 125 mcg tablet 125 mcg PO DAILYBB 02/01/24 02/04/24 History metoprolol tartrate 25 mg tablet 12.5 mg PO AMHS 02/01/24 02/04/24 History oxycodone 5 mg tablet 5 mg PO BID PRN mod or severe pain 02/01/24 02/04/24 History verapamil 80 mg tablet 80 mg PO AMHS 02/01/24 02/04/24 History prednisone 20 mg tablet 20 mg PO QAM 02/04/24 02/04/24 History Patient History Medical History (Updated 02/04/24 @ 12:53 by Brad [place], DO) History of breast cancer GERD (gastroesophageal reflux disease) Persistent atrial fibrillation Vascular dementia Hypothyroidism History of stroke Diabetes mellitus Surgical History Hx of cholecystectomy H/O section H/O gastric bypass Left ulnar fracture s[facility]p [facility] Family History Other Breast cancer Diabetes Hypertension Social History Smoking Status: Never smoker Hx Alcohol Use: No Hx Substance Use: No Preferred Language: Divehi Communication Ability: Effective Style Advisor Required: No Beliefs That Will Affect Care: None Current Living Situation: Alone Current Living Situation Comment: Lives alone with cat, daughter lives across the street Feels Safe at Home: Yes Assistive Devices: Glasses Physical Exam Physical Exam: On exam she is comfortable in bed. Is good strength testing. Results & Data Vital Signs (Past 12 Hours) Vital Signs Temp Pulse Pulse Resp BP Pulse Ox O2 Del Method 02/06/24 08:31 67 02/06/24 07:54 36.8 C 71 16 122/71 92 Room Air 02/06/24 07:27 Room Air 02/06/24 04:08 36.7 C 76 14 149/67 H 96 Room Air 02/05/24 23:33 36.4 C L 64 14 129/67 96 Room Air (1) Compression fracture of lumbosacral spine Encounter type: subsequent encounter Fracture healing: with routine healing Fracture type: closed Qualified Code(s): S32.000D - Wedge compression fracture of unspecified lumbar vertebra, subsequent encounter for fracture with routine healing
--- NOTE | 2024-02-06 12:41 | Hospitalist Progress Note ---
Date of Service February 06, 2024 Assessment & Plan (1) Lower back pain: (2) Lumbar compression fracture: (3) Lightheadedness: (4) Vascular dementia: (5) Diabetes mellitus: (6) Persistent atrial fibrillation: (7) History of stroke: (8) GERD (gastroesophageal reflux disease): (9) Hypothyroidism: Plan This is a 73yo F with a PMH of atrial fibrillation on anticoagulation, history of stroke, DM II, hypothyroidism, vascular dementia, h/o breast cancer s/p lumpectomy, chemo and XRT, and other medical problems listed below who presents with worsening back pain over the past few days and was found to have an L2 compression fracture. Compression Fractures, L2 Age related osteoporosis with current pathological fracture, lumbar vertebral --Lumbar CT: [id number] inferior endplate compression fracture of L2 as above. There is only minimal loss of height and mild retropulsion of fragments. This does not contribute to significant central canal stenosis.. Chronic appearing inferior endplate compression deformities are noted in L3 and L4. Osteopenia and spondylotic changes above. -- Pain control Continue TLSO brace Appreciate orthopedics input Completed prednisone course Fall precautions Continue PT OT Patient refused rehab placement Conservative management per orthopedics. If no improvement, eventually may need kyphoplasty Plan to be discharged home with home health Recent mechanical fall s/p left elbow fracture s/p left olecranon ORIF 01/02/2024 Left elbow in sling, follow up last with Ortho on 01/15 "passive range of motion through her left elbow with the assistance of her right arm" Pain control Continue current management Dizziness Normal orthostatics No issues on monitor currently --ECHO: Mild concentric LVH. Basal septum is thickened and angulated consistent with sigmoid septum. EF 60 to 65%. Grade 2 diastolic dysfunction. Moderate mitral annular calcification with mild to moderate mitral regurgitation. Attic valve is moderately calcified. Mild aortic stenosis. Trace aortic regurgi tation. Left atrium is moderately dilated. --Continue home medications Verapamil resumed at lower dose 40mg BID Resolved Iron, vitamin B12, vitamin D deficiency Started on supplements Will need repeat blood work as outpatient HTN Resumed verapamil 40 mg twice daily Continue metoprolol Monitor and adjust medications as needed Paroxysmal Atrial Fibrillation Continue metoprolol, verapamil On Eliquis for anticoagulation Chronic anemia, microcytic H/O Gastric bypass Started on iron supplements as above Prior CVA stroke, cardioembolic HLD Continue statin Also on Eliquis DM II On metformin and Ozempic HbA1C: 7 on 12/2023 Continue insulin while hospitalized Monitor BGs Hypothyroidism TSH 12/2023 1.16 Continue levothyroxine DVT Px: Eliquis CODE STATUS Full code Disposition Refused rehab Plan to discharge home with home health Admission and Anticipated Discharge Date Admission Date: February 04, 2024 Subjective Patient is seen and examined at bedside Offers no new complaints Back pain is controlled Refuses rehab placement Denies any chest pain, dyspnea, nausea, vomiting, abdominal pain Plan to be discharged home Review of Systems Review of Systems: All systems reviewed & are unremarkable except as noted in Subjective Physical Exam Physical Exam: Physical Exam: Vitals signs as noted above General Appearance:Thin, frail, no apparent distress Head: normocephalic, Atraumatic Eyes: normal inspection, EOMI Neck: supple, Trachea midline Respiratory/Chest: Normal breath sounds, CTA, No accessory muscle use Cardiovascular: S1, S2, + murmur Abdomen/GI:Soft, Non tender, Bowel sounds present Extremities/Musculoskeletal:normal inspection, Trace edema, LUE in sling Neurologic/Psych:AAOX3, grossly no focal neurological deficits Skin: normal color, warm Results & Data Results & Data Vital Signs (Past 12 Hours) Vital Signs Temp Pulse Pulse Resp BP Pulse Ox O2 Del Method 02/06/24 11:30 36.7 C 63 16 114/66 95 Room Air 02/06/24 08:31 67 02/06/24 07:54 36.8 C 71 16 122/71 92 Room Air 02/06/24 07:27 Room Air 02/06/24 04:08 36.7 C 76 14 149/67 H 96 Room Air Laboratory Results Short CBC 02/06/24 Range/Units 06:51 WBC 9.45 (4.8-10.8) K/ul Hgb 9.4 L (12.0-16.0) g/dl Hct 30.7 L (37.0-47.0) % Plt Count 197 (130-400) K/uL BMP 02/06/24 06:51 Sodium 138 Potassium 4.0 Chloride 106 Carbon Dioxide 25 BUN 19 Creatinine 0.74 Glucose 122 H Calcium 8.5 L (1) Lower back pain Back pain laterality: midline Chronicity: acute Sciatica presence: without sciatica Qualified Code(s): M54.50 - Low back pain, unspecified (2) Lumbar compression fracture Encounter type: initial encounter Lumbar vertebra fracture level: unspecified lumbar vertebra Qualified Code(s): S32.000A - Wedge compression fracture of unspecified lumbar vertebra, initial encounter for closed fracture
--- NOTE | 2024-02-06 12:47 | Discharge Summary ---
Date of Service February 06, 2024 Admission HPI Per Admitting Provider This is a 73yo F with a PMH of atrial fibrillation on anticoagulation, history of stroke, DM II, hypothyroidism, vascular dementia, h/o breast cancer s/p lumpectomy, chemo and XRT, and other medical problems listed below who presents with worsening back pain over the past few days. Patient had a fall at home 3 weeks ago causing elbow injury that required surgery. Left arm is in sling and has been improving but presented to ED a few days ago with worsening back pain. Pain is across in a bandlike distribution near waistband. Also having more ambulatory dysfunction at home and daughter feels she is unsafe to be ambulating without assistance. Does not use a cane/walker at baseline. Daughter lives nearby but feels that patient needs to go to rehab. No ambulatory dysfunction at baseline. Noting lightheadedness and feeling off balance with ambulation, needing to grab onto scanlon for support. Denies any CP or palpitations. Has been taking all meds as prescribed as well as prednisone 20mg daily and oxycodone PRN prescribed by ED a few days ago for back pain. No F/C, N/V, abd pain, dysuria, diarrhea or constipation. Admission Exam Per Admitting Provider GENERAL APPEARANCE: AxOx4, generally well-appearing F, no acute distress. HEENT: NC, AT. MMM. EOMI, clear conjunctiva, oropharynx clear. NECK: Supple without lymphadenopathy. No stiffness or restricted ROM. HEART: Normal rate and regular rhythm, normal S1/S1, +KAMERON LUNGS: CTAB, moving air well. No crackles or wheezes are heard. ABDOMEN: Soft, nontender, nondistended with good bowel sounds heard. BACK: No CVAT, no obvious deformity. EXTREMITIES: Without cyanosis, clubbing. Nonpitting edema of ankles, at baseline. Left arm in sling. NEUROLOGICAL: Grossly nonfocal. Alert and oriented, moving all 4 extremities. CN not formally tested but appear grossly intact. Skin: Warm and dry without any rash. Principal Diagnosis Lumbar Compression Fracture Vitamin B12 deficiency Vitamin D deficiency Iron deficiency Anemia Discharge Data Allergies Allergy/AdvReac Type Severity Reaction Status Date / Time Penicillins Allergy Intermediate Hives Verified 02/04/24 09:38 Sulfa (Sulfonamide AdvReac Severe SEVERE Verified 02/04/24 09:38 Antibiotics) NAUSEA Consultations 02/04/24 10:19 ED Decision to Admit Stat 02/05/24 07:44 Consult Orthopedic Surgery Routine Procedures Performed Laboratory Results WBC 9.45 K/ul (4.8-10.8) 02/06/24 06:51 RBC 3.71 M/uL (4.20-5.40) L 02/06/24 06:51 Hgb 9.4 g/dl (12.0-16.0) L 02/06/24 06:51 Hct 30.7 % (37.0-47.0) L 02/06/24 06:51 MCV 82.7 fL (80.0-100.0) 02/06/24 06:51 MCH 25.3 pg (25.0-34.0) 02/06/24 06:51 MCHC 30.6 g/dL (32.0-36.0) L 02/06/24 06:51 RDW Std Deviation 46.3 fL (36.4-46.3) 02/06/24 06:51 RDW Coeff of Valentina 15.4 % (11.5-14.5) H 02/06/24 06:51 Plt Count 197 K/uL (130-400) 02/06/24 06:51 MPV 10.6 fL (9.4-12.4) 02/06/24 06:51 Immature Gran % (Auto) 0.3 % 02/04/24 08:05 Neut % (Auto) 71.5 % 02/04/24 08:05 Lymph % (Auto) 19.7 % 02/04/24 08:05 [place] % (Auto) 7.9 % 02/04/24 08:05 Eos % (Auto) 0.1 % 02/04/24 08:05 Baso % (Auto) 0.5 % 02/04/24 08:05 Neut # (Auto) 6.30 K/uL (1.40-6.50) 02/04/24 08:05 Lymph # (Auto) 1.74 K/uL (1.20-3.40) 02/04/24 08:05 [place] # (Auto) 0.70 K/uL (0.11-0.59) H 02/04/24 08:05 Eos # (Auto) 0.01 K/uL (0.00-0.50) 02/04/24 08:05 Baso # (Auto) 0.04 K/uL (0.00-0.20) 02/04/24 08:05 Immature Gran # (Auto) 0.03 K/uL (0.01-0.20) 02/04/24 08:05 PT 11.1 Seconds (9.0-12.0) 02/04/24 08:05 INR 1.0 (0.9-1.1) 02/04/24 08:05 Sodium 138 mmol/L (136-145) 02/06/24 06:51 Potassium 4.0 mmol/L (3.5-5.1) 02/06/24 06:51 Chloride 106 mmol/L (98-107) 02/06/24 06:51 Carbon Dioxide 25 mmol/L (21-32) 02/06/24 06:51 Anion Gap 7 (3-11) 02/06/24 06:51 BUN 19 mg/dl (6-23) 02/06/24 06:51 Creatinine 0.74 mg/dl (0.6-1.2) 02/06/24 06:51 Est Cr Clr Drug Dosing 62.3 ml/min 02/06/24 06:51 Est GFR ( Amer) 92.5 ml/min 02/06/24 06:51 Est GFR (Non-Af Amer) 79.8 ml/min 02/06/24 06:51 BUN/Creatinine Ratio 25.7 (10-20) H 02/06/24 06:51 Glucose 122 mg/dl (70-99(Fasting)) H 02/06/24 06:51 POC Glucose 119 mg/dl (70-99) H 02/06/24 12:20 Calcium 8.5 mg/dl (8.6-10.3) L 02/06/24 06:51 Iron 24 mcg/dl (35-150) L 02/05/24 07:01 TIBC 325 mcg/dl (250-450) 02/05/24 07:01 Unsaturated IBC 301 mcg/dl (155-355) 02/05/24 07:01 Transferrin % Sat 7 % (15-50) L 02/05/24 07:01 Ferritin 15.4 ng/ml (8-388) 02/05/24 07:01 Total Bilirubin 0.4 mg/dl (0.2-1.0) 02/04/24 08:05 AST 13 U/L (13-39) 02/04/24 08:05 ALT 11 U/L (7-52) 02/04/24 08:05 Alkaline Phosphatase 77 U/L (34-104) 02/04/24 08:05 Total Protein 6.3 gm/dl (6.0-8.3) 02/04/24 08:05 Albumin 3.6 gm/dl (3.4-5.0) 02/04/24 08:05 Globulin 2.7 gm/dl (2.5-4.0) 02/04/24 08:05 Albumin/Globulin Ratio 1.3 (0.9-2) 02/04/24 08:05 Lipase 14 U/L (11-82) 02/04/24 08:05 Vitamin B12 150 pg/ml (180-914) L 02/05/24 07:01 25-OH Vitamin D Total 20.6 ng/ml (30-100) L 02/05/24 07:01 Folate > 22.30 ng/ml (>5.38) 02/05/24 07:01 Urine Color Yellow 02/04/24 Unknown Urine Appearance Clear (Clear) 02/04/24 Unknown Urine pH 6.0 (4.5-7.5) 02/04/24 Unknown Ur Specific [place] 1.006 (1.000-1.030) 02/04/24 Unknown Urine Protein Negative (Negative) 02/04/24 Unknown Urine Glucose (UA) Negative (Negative) 02/04/24 Unknown Urine Ketones Negative (Negative) 02/04/24 Unknown Urine Blood Negative (Negative) 02/04/24 Unknown Urine Nitrite Negative (Negative) 02/04/24 Unknown Urine Bilirubin Negative (Negative) 02/04/24 Unknown Urine Urobilinogen Negative (Negative) 02/04/24 Unknown Ur Leukocyte Esterase Negative (Negative) 02/04/24 Unknown Impressions Lumbar Spine CT 02/04/24 08:01 CT SCAN OF THE LUMBAR SPINE WITHOUT IV CONTRAST CLINICAL HISTORY: Fall several weeks previous. Low back pain. COMPARISON STUDY: Lumbar spine radiographs dated 02/01/2024. TECHNIQUE: CT scan of the lumbar spine is performed from the lower thoracic spine to the sacrum. Images are reviewed in the axial, sagittal, and coronal planes. IV contrast was not administered for this examination. A dose lowering technique was utilized adhering to the principles of ALARA. CT DOSE: 1342.54 mGy.cm FINDINGS: The skeletal structures are osteopenic. There is an acute appearing inferior endplate compression fracture of L2. Paravertebral edema is seen at this level. There is only minimal loss of height. Inferior fragments are retropulsed by up to 5 mm. This does not contribute to significant central canal stenosis. There are chronic appearing inferior endplate compression deformities of L3 and L4, also with minimally retropulsed fragments. Vertebral body height is maintained at L1 and L5. Alignment is preserved. There is straightening of the lumbar lordosis. Anterior and lateral marginal osteophytes are seen throughout. The transverse and spinous processes appear intact. There is no spondylolysis. No lytic or blastic lesion is seen. There is minimal degenerative disc space narrowing throughout the lumbar spine. Posterior disc osteophyte complexes are noted at most levels. There is no CT evidence of large disc herniation or high-grade central canal stenosis. Facet arthropathy is noted in the lower lumbar region. The visualized sacrum and bony pelvis appear intact. There is fatty atrophy of the paraspinous musculature. The abdominal aorta is normal in course and caliber noting advanced atherosclerotic calcification. There are calcified splenic granulomas. IMPRESSION: 1. [id number]-ojvomuub inferior endplate compression fracture of L2 as above. There is only minimal loss of height and mild retropulsion of fragments. This does not contribute to significant central canal stenosis. 2. Chronic appearing inferior endplate compression deformities are noted in L3 and L4. 3. Osteopenia and spondylotic changes above. ACT 112: Negative or not required by law. Dictated: 02/04/2024 8:55 AM Transcribed: 02/04/2024 9:12 AM Devyn [id number] [email or web address] Electronically signed by: Gurjit Madrigal M.D. 02/04/2024 9:19 AM Ordered Studies 02/04/24 08:01 CT lumbar spine wo con Stat Hospital Course (1) Lower back pain: (2) Lumbar compression fracture: (3) Lightheadedness: (4) Vascular dementia: (5) Diabetes mellitus: (6) Persistent atrial fibrillation: (7) History of stroke: (8) GERD (gastroesophageal reflux disease): (9) Hypothyroidism: Plan This is a 73yo F with a PMH of atrial fibrillation on anticoagulation, history of stroke, DM II, hypothyroidism, vascular dementia, h/o breast cancer s/p lumpectomy, chemo and XRT, and other medical problems listed below who presents with worsening back pain over the past few days and was found to have an L2 compression fracture. Compression Fractures, L2 Age related osteoporosis with current pathological fracture, lumbar vertebral --Lumbar CT: [id number] inferior endplate compression fracture of L2 as above. There is only minimal loss of height and mild retropulsion of fragments. This does not contribute to significant central canal stenosis.. Chronic appearing inferior endplate compression deformities are noted in L3 and L4. Osteopenia and spondylotic changes above. -- Pain control Continue TLSO brace Appreciate orthopedics input Completed prednisone course Fall precautions Continue PT OT Patient refused rehab placement Conservative management per orthopedics. If no improvement, eventually may need kyphoplasty Plan to be discharged home with home health Recent mechanical fall s/p left elbow fracture s/p left olecranon ORIF 01/02/2024 Left elbow in sling, follow up last with Ortho on 01/15 "passive range of motion through her left elbow with the assistance of her right arm" Pain control Continue current management Dizziness Normal orthostatics No issues on monitor currently --ECHO: Mild concentric LVH. Basal septum is thickened and angulated consistent with sigmoid septum. EF 60 to 65%. Grade 2 diastolic dysfunction. Moderate mitral annular calcification with mild to moderate mitral regurgitation. Attic valve is moderately calcified. Mild aortic stenosis. Trace aortic regurgitation. Left atrium is moderately dilated. --Continue home medications Verapamil resumed at lower dose 40mg BID Resolved Iron, vitamin B12, vitamin D deficiency Started on supplements Will need repeat blood work as outpatient HTN Resumed verapamil 40 mg twice daily Continue metoprolol Monitor and adjust medications as needed Paroxysmal Atrial Fibrillation Continue metoprolol, verapamil On Eliquis for anticoagulation Chronic anemia, microcytic H/O Gastric bypass Started on iron supplements as above Prior CVA stroke, cardioembolic HLD Continue statin Also on Eliquis DM II On metformin and Ozempic HbA1C: 7 on 12/2023 Continue insulin while hospitalized Monitor BGs Hypothyroidism TSH 12/2023 1.16 Continue levothyroxine DVT Px: Eliquis CODE STATUS Full code Disposition Refused rehab Plan to discharge home with home health Total Time Total Time Spent Total Time Spent (In Minutes): 59 minutes Discharge Plan Discharge Items Patient Disposition: Home - Home Health Services Reason For Visit: COMPRESSION FRACTURES Discharge Diagnosis: Lumbar Compression Fracture Vitamin B12 deficiency Vitamin D deficiency Iron deficiency Anemia Activity: Per Instructions section Exercise/Sports: Gradually increase as tolerated Non-emergency contact: Primary Care Provider and Surgeon Call non-emergency contact if: you have any medication questions, your symptoms worsen, your pain is concerning for you and you have a fever Follow-up/Referrals: Uriel Cobb DO [Primary Care Provider] - (Date & Time 02/13/2024 11:00 AM Provider Uriel Cobb DO Department [facility] ) Diet: Carb Consistent or DM2 and Heart Healthy Addtl Attending Provider Instructions: Follow up with your Primary Care physician on 02/13/2024 11:00 AM Follow up with your Orthopedic surgeon Dr. Edmond if no improvement of your back pain --Your verapamil dose is decreased to 40 mg twice a day as you complained of dizziness and your blood pressure was relatively low. Monitor your blood pressure regularly at home. Discuss with your physician for further adjustment of medications as needed. Seek immediate medical attention if your symptoms reoccur or worsen Please take all medications as instructed on discharge list below. Please call if you have any questions or problems. You can reach a [facility] hospitalist on duty at [facility] 24 hours a day by calling [phone] Pending Studies at Discharge: No Stand-Alone Forms: My [facility], Smoking Cessation Medications and DC Order Prescriptions: New ferrous sulfate 325 mg (65 mg iron) Tablet,Delayed Release (Dr/Ec) 325 mg PO QAM Qty: 30 1RF verapamil 40 mg Tablet 40 mg PO AMHS Qty: 60 0RF cholecalciferol (vitamin D3) 125 mcg (5,000 unit) Tablet 125 mcg PO QAM Qty: 30 0RF cyanocobalamin (vitamin B-12) 500 mcg Tablet 1,000 mcg PO QAM Qty: 60 0RF Continued oxycodone 5 mg tablet 5 mg PO BID PRN (Reason: mod or severe pain) atorvastatin 40 mg tablet 40 mg PO QAM levothyroxine 125 mcg tablet 125 mcg PO DAILYBB aspirin [Aspirin Low-Strength] 81 mg Tablet,Delayed Release (Dr/Ec) 81 mg PO DAILY metoprolol tartrate 25 mg tablet 12.5 mg PO AMHS Rx Instructions: 1/2 tablet dose metformin 500 mg Tablet 0 mg PO BIDM Rx Instructions: Original Directions: 500mg by mouth twice daily. Per Daughter/Caregiver, she doesn't know if she gives pt 500mg twice daily or 1000mg twice daily lorazepam [Ativan] 0.5 mg Tablet 0.5 mg PO Q8 PRN (Reason: Anxiety) pantoprazole 40 mg Tablet,Delayed Release (Dr/Ec) 40 mg PO QAM Eliquis 5 mg Tablet 5 mg PO AMHS Ozempic 1 mg/dose (4 mg/3 mL) Pen Injector 1 mg SUBCUT WK Rx Instructions: MONDAYS prednisone 20 mg tablet 20 mg PO QAM Rx Instructions: Start Date 02/01/24 - End Date 02/05/24 Discontinued verapamil 80 mg tablet 80 mg PO AMHS Discharge Orders: Discharge Order (Routine); Ordered 02/06/24 Ordered By: Damion Blanchard Admission Data Admit Date/Time: 02/04/24 11:04 Attending Provider: Damion Blanchard Admit Provider: Kate Mccrary Primary Care Provider: Uriel Cobb Other Providers: Kate Mccrary; eGrry Edmond
[2024-02-07] MEDS ORDERED: CYANOCOBALAMIN (B-12) 500 MCG TABLET PO SCH (09:00)
== END 2024-02-06 14:51 | disposition home health service (06) | DRG 543 ==
LOC: ED 07:35 → SUATTDRO 11:04 → 2N 11:04

== ENCOUNTER 2024-07-18 22:37 | Inpatient (IN) ==
--- OUTSIDE RECORDS SUMMARY | 2024-07-18 22:47 | External Medical Summary | Summary of Care ---
Author Name Unknown Organization [facility] Address [address] [place] [address] Phone [phone] Care Team Providers Care Garbage Person Name Role Phone June Guerrero MD Primary Care Provider [phone] Reason for Visit * Reason Onset Date Comments Medication Refill 06/27/2024 Medication Pre-auth 06/27/2024 Ozempic (1 M G/DOSE) 2 MG/1.5ML Subcutaneous Solution Pen-injector (Semaglutide (1 MG/DOSE) Encounter Details Date Type Department Care Team (Late st Contact Info) Description 06/27/2024 Refill Family Practice [facility] [address] [place] [address] Uriel Cobb, [address] [place] [address] Allergies Active Allergy Reactions Criticality Noted Date Comments Penicillins Hives 12/17/2023 Sulfa Antibiotics Nausea/vomiting 02/04/2024 documented as of this encounter (statuses as of 07/07/2024) Medications Medication Sig Dispensed Refills Start Date End Date Status Acetaminophen ER 650 MG Oral Tablet Extended Release (Acetaminophen 8 Hour) Take 1 Tablet by mouth every 8 hours as needed. Active Apixaban 5 MG Oral Tablet (Eliquis) Take 1 Tablet by mouth in the morning and 1 Tablet before bedtime. 60 Tablet 11 02/17/2024 Active Atorvastatin Calcium 40 MG Oral Tablet (Lipitor) Take 1 Tablet by mouth in the morning. 30 Tablet 02/17/2024 Active Levothyroxine Sodium 125 MCG Oral Tablet (Levoxyl) Take 1 Tablet by mouth daily first thing in the morning. (at least 30 min prior to breakfast or other meds) 30 Tablet 02/17/2024 Active metFORMIN HCl 500 MG Oral Tablet (Glucophage) Take 2 Tablets by mouth 2 times a day with morning and evening meals. 120 Tablet 02/17/2024 Active Metoprolol Tartrate 25 MG Oral Tablet (Lopressor) Take 1/2 Tablets by mouth in the morning and 1/2 Tablets before bedtime. 30 Tablet 02/17/2024 Active Pantoprazole Sodium 40 MG Oral Tablet Delayed Release (Protonix) Take 1 Tablet by mouth in the morning. 30 Tablet 02/17/2024 Active Verapamil HCl 40 MG Oral Tablet (Isoptin) Take 1 Tablet by mouth in the morning and 1 Tablet before bedtime. 60 Tablet 02/17/2024 Active Sertraline HCl 25 MG Oral Tablet (Zoloft) Take 1 Tablet by mouth in the morning. 30 Tablet 02/17/2024 Active Aspirin 81 MG Oral Tablet Delayed Release (SB Low Dose ASA EC) Take 1 Tablet by mouth in the morning. 100 Tablet 02/17/2024 Active GNP Vitamin B-12 1000 MCG Oral Tablet Extended Release (Cyanocobalamin ER) Take 1 Tablet by mouth in the morning. 60 Tablet 02/17/2024 Active Ferrous Sulfate 325 (65 Fe) MG Oral Tablet (Feosol) Take 1 Tablet by mouth daily with breakfast. 30 Tablet 02/17/2024 Active Vitamin D3 125 MCG (5000 UT) Oral Tablet Take 1 Tablet by mouth in the morning. 100 Tablet 02/17/2024 Active Nystatin 653279 UNIT/GM External Powder (Nystop) Apply topically to affected area 3 times a day. Apply to skin fold under stomach 15 g 05/25/2024 Active Charly Ren In Vitro Strip (Glucose Blood) Use up to 4 times a day E11.9 100 Strip 11 05/26/2024 Active oxyCODONE HCl 5 MG Oral Tablet (Oxy IR)Indications:His tory of compression fracture of spine Take 1 Tablet by mouth every 8 hours as needed for Pain, Severe. 60 Tablet 06/22/2024 Active Calcitonin ([place]) 200 UNIT/ACT Nasal Solution (Fortical)Indicati ons:History of compression fracture of spine Administer 1 [place] into one nostril in the morning. alternate nostrils.. 3 mL 11 06/22/2024 Active Ozempic (1 MG/DOSE) 2 MG/1.5ML Subcutaneous Solution Pen-injector (Semaglutide (1 MG/DOSE)) Inject 1 mg under the skin once a week. 2 Each 12/30/2023 4 Discontinue d(Refill) Ozempic (1 MG/DOSE) 2 MG/1.5ML Subcutaneous Solution Pen-injector (Semaglutide (1 MG/DOSE)) Inject 1 mg under the skin once a week. 2 Each 06/28/2024 4 Discontinue d(Refill) documented as of this encounter (statuses as of 07/07/2024) Active Problems Problem Noted Date Diagnosed Date History of compression fracture of spine 024 Dyslipidemia 03/25/2024 Overweight (BMI 25.0-29.9) 03/25/2024 Type 2 diabetes mellitus wit h hemoglobin A1c goal of less than 8.0% 12/30/2023 Postoperative hypothyroidism 12/30/2023 Vascular dementia 12/30/2023 History of thyroid cancer 12/30/2023 History of breast cancer 12/30/2023 Longstanding persistent atrial fibrillation 12/18 Gastroesophageal reflux disease without esophagi tis 12/30/2023 documented as of this encounter (statuses as of 07/07/2024) Resolved Problems Problem Noted Date Diagnosed Date Resolved Date Pure hypercholesterolemia 12/30/2023 Pre-operative general physical examination 12/30/2023 03/25/2024 Olecranon fracture, left, cl osed, with routine healing, subsequent encounter 12/23/2023 Overview: Changed initial encounter to subsequent 01/15/24 HL documented as of this encounter (statuses as of 07/07/2024) Immunizations Name Administration Dates Next Due COVID-19 mRNA, LNP-s, No Pre serve, 2-Dose Series (Moderna) 04/10/2022,11/02/2021 COVID-19 mRNA, LNP-s, No Pre serve, 2-Dose Series (Pfizer) 02/05/2021,01/15/2021 Pneumococcal Conjugate Vacc, 13 Valent (Prevnar) 2015 Pneumococcal Polysaccharide PPV23 (Pneumovax) 02/08/2019,08/24/2013 Seasonal Influenza Virus Vac cine, Unspecified Formulation 07/22/2023,06/26/2022,07/09/2021,07/20,06/30/2017,07/03/2015,07/27/2014 ,07/14/2013,06/30/2012,08/07/2011,06/20,09/23/2009,08/02/2008 Seasonal Influenza, Trivalen t, (IIV3), with Preserv, (Fluzone) 08/04/2018 TDAP (age 10 and older)(Boostrix) 02/17/2024 Varicella Zoster Vaccine (Adult) 09/24/2010 Zoster Vaccine Recombinant (Shingrix) 02/17/2024 documented as of this encounter Social History Tobacco Use Types Packs/Day Years Used Date Smoking Tobacco: Never Smokeless Tobacco: Never Alcohol Use Standard Drinks/Week Comments Never 0 (1 standard drink = 0.6 oz pur e alcohol) rare PHQ-2 Answer Date Recorded PHQ Adult Total Score 0 01/08/2024 Hunger Vital Sign Answer Date Recorded Within the past 12 months, y ou worried that your food would run out before you got the money to buy more. Never true 06/28/20 24 Within the past 12 months, t he food you bought just didn't last and you didn't have money to get more. Never true 06/28/2024 Childcare Answer Date Recorded Do you feel overwhelmed with taking care of a child, family member or friend? No 06/28/2024 Does your family need help f inding childcare? (Household - for ages 0-17 years) Not on file 06/28/2024 Clothing Answer Date Recorded Have you been unable to get clothing when it was really needed? No 06/28/2024 Is your family able to get c lothes or diapers when needed? (Household - for ages 0-17 years) Not on file 06/28/2024 Personal Safety Answer Date Recorded Do you feel unsafe or have concerns for your saf ety? No 06/28/2024 Do you have concerns for you r family's safety? (Household - for ages 0-17 years) Not on file 06/28/2024 Utilities Answer Date Recorded Do you have trouble paying y our heating, water, or electric bill? No 06/28/2024 Is your family able to pay t he heat, water, or electric bill? (Household - for ages 0-17 years) Not on file 06/28/2024 Does your family have access to good internet? (Household - for ages 0-17 years) Not on file 06/28/2024 Employment Status Answer Date Recorded Are you unemployed or without regular income? No 06/28/2024 Does the household have a re gular source of income? (Household - for ages 0-17 years) Not on file 06/28/2024 Social Connections Answer Date Recorded How often do you feel lonely or isolated from th ose around you? Rarely 06/28/2024 Financial Resource Strain Answer Date R ecorded Do you have any trouble payi ng for your medications, or do you think you might in the future? No 06/28/2024 Does your family have troubl e paying for medicine? (Household - for ages 0-17 years) Not on file 06/28/2024 Transportation Needs Answer Date Record ed READ ONLY Do you have troubl e getting a ride to medical visits or work? Never True 06/28/2024 Does your family have a hard time getting a ride to doctors visits? (Household - for ages 0-17 years) Not on file 06/28/2024 Has lack of transportation k ept you from medical appointments, meetings, work, or from getting things needed for daily living? Check all that apply. No 06/28/2024 Do you (or your family) have trouble finding or paying for a ride (transportation)? (Household - for ages 0-17 years) Not on file 06/28/2024 Housing Stability Answer Date Recorded Do you currently live in a s helter or have no steady place to sleep at night? No 06/28/2024 READ ONLY Do you think you a re at risk of becoming homeless? No 06/28/2024 Does your family worry about paying for your home or becoming homeless? (Household - for ages 0-17 years) Not on file 0 06/28/2024 Are you homeless or worried that you might be in the future? No 06/28/2024 Are you (or your family) cherrie eless or worried that you might be in the future? (Household - for ages 0-17 years) Not on file Food Insecurity Answer Date Recorded Do you need food for this week? No 06/28/2024 Are you able to get enough f ood for your family? (Household - for ages 0-17 years) Not on file 06/28/2024 Does your family need food t his week? (Household - for ages 0-17 years) Not on file 06/28/2024 Do you always have enough fo od for your family? (Household - for ages 0-17 years) Not on file 06/28/2024 Sex and Gender Information Value Date Recorded Sex Assigned at Female 01/27/2024 8:14 PM EDT Gender Identity Female 01/27/2024 8:14 PM EDT Sexual Orientation Straight 01/27/2024 8: 14 PM EDT Job Start Date Occupation Industry Not on file Not on file Not on file documented as of this encounter Miscellaneous Notes * Telephone Encounter - Aileen Gupta school secretary - 07/07/2024 8:44 AM EDT Patients insurance would like to inform the office that Ozempic (1 MG/DOSE) 2 MG/1.5ML SubcutaneousSolution Pen-injector (Semaglutide (1 MG/DOSE)) is approved until open ended. Patient and pharmacy made aware by [facility]. Information will be faxed to the office. Thank you, Aileen Gupta CPhT Account General Manager II, [facility] ([facility]) 07/07/2024,8:44 AM * Telephone Encounter - Victorina Zuniga PHARM Tech - 07/05/2024 2:15 PM EDT Pt's ec calling to inform doctor that the patient's insurance will not pay for this medication without a completed prior authorization. Did confirm this information with the pharmacy. Pt's current insurance information is as follows: Patient name: Myra Farris ID number: [id number] BIN number: [id number] N number: [id number] Group number: Subscriber name: Myra Farris Primary or Secondary Insurance:Primary Medication: Ozempic (1 MG/DOSE) 2 MG/1.5ML Subcutaneous Solution Pen-injector (Semaglutide (1 MG/DOSE) Reason for Request: pa required Pharmacy and phone number: [facility] [address] Rx plan and phone number: [facility] [phone] Is this a new medication for the patient? No. How did the patient obtain the medication on the lastfill? It was covered last time on this same insurance. What alternative medications does the pharmacy have in stock?: n/a Thank you, Victorina [facility] [employer] Faculty Member II [facility] ([facility]) 07/05/2024, 2:15 PM * Telephone Encounter - Sebastian Love [facility] - 06/28/2024 10:08 AM EDT Signed Prescriptions: Disp Refills Ozempic (1 MG/DOSE) 2 MG/1.5ML Subcutaneou*2 Each 0 Sig: Inject 1 mg under the skin once a week.Authorizing Provider: JUNE GUERRERO * Telephone Encounter - June Guerrero MD - 06/28/2024 8:49 AM EDTSigned Prescriptions: Disp Refills Ozempic (1 MG/DOSE) 2 MG/1.5ML Subcutaneou*2 Each 0 Sig: Inject 1 mg under the skin once a week. Authorizing Provider: JUNE GUERRERO * Telephone Encounter - Katie Whalen LPN - 06/28/2024 8:43 AM EDT Did you pend patient's preferred pharmacy and medication before forwarding?yes Pharmacy: [facility] [address] Pending Prescriptions: Disp Refills Ozempic (1 MG/DOSE) 2 MG/1.5ML Subcutaneo*2 Each 0 Sig: Inject 1 mg under the skin once a week. Last Visit: 02/10/2024 (in office), Visit date not found (telemedicine) Next Visit: Visit date not found If no future appointments scheduled, and last appointment is greater than a year ago, please schedule patient for a follow-up appointment Last date the medication was ordered: 12/30/23 Is this request for a controlled substance? Urine Drug Screen:No results found for this [...] Care Team (Late st Contact Info) Description 07/07/2024 1:30 PM EDT Imaging Radiology, [place] [address] [place] [address] 07/21/2024 10:30 AM EDT Office Visit Ophthalmology, [facility] [address] [place] [address] Cyrus Shah, DO [address] [place] [address] 09/27/2024 10:00 AM EST Office Visit Cardiology, [facility] [address] [place] [address] Deondre Gordillo, DO [address] [place] [address] Health Maintenance Due Date Last Done Comments Albumin/Creatinine Ratio 1968 Hepatitis C Screening 1968 Adult Wellness Visit 2015 Zoster Vaccines (3 of 3) 04/13/2024 02/17/2024, 03/2010 COVID-19 Vaccine ( season) 2024 04/10/2022, 11/02/2021, 02/05/2021, Additional history exists Influenza Vaccine (FLU shot) (#1) 2024 07/22/2023, 06/26/2022, 07/09/2021, Additional history exists HbA1c 07/01/2024 12/30/2023, 07/20, 03/25/2023, Additional history exists GFR 12/29/2024 12/30/2023 TSH 12/29/2024 12/30/2023 Depression Screening 01/07/2025 01/08/2024 Diabetic Foot Exam 02/16/2025 02/17/2024 Diabetic Eye Exam 03/23/2025 03/23/2024, , 02/17/2024 DXA Scan 03/05/2031 03/05/2021, 02/17, 10/03/2016, Additional history exists DTap/Tdap Vaccines (2 - Td or Tdap) 02/16/2034 02/17/2024 Pneumococcal Vaccine: 65+ Years Completed 02/08/2019, 2015, 08/24/2013 HPV (Gardasil) Vaccine Aged Out No lo nger eligible based on patient's age to complete this topic Hepatitis B Vaccine Aged Out No longe r eligible based on patient's age to complete this topic MENINGOCOCCAL (MENACTRA/MENVEO) Aged Out No longer eligible based on patient's age to complete this topic documented as of this encounter Medical Devices Implanted Type Area Aquacultural Worker Supervisor Device Identifier Shelf Expiration Date Model / Serial / Lot Olecranon Plate Implanted:Qty: 1 on 01/02/2024 by Zachary Reese DO at [facility] Left: Elbow [id number] / / Screw Bn T10 Ft St Lk 3.5x18mm - [id number] Implanted:Qty: 2 on 01/02/2024 by Zachary Reese DO at [facility] Left: Elbow ADILIA : ORTHOPAEDICS [id number] / / Screw Bn T10 Ft St Lk 3.5x20mm - [id number] Implanted:Qty: 1 on 01/02/2024 by Zachary Reese DO at [facility] Left: Elbow ADILIA : ORTHOPAEDICS [id number] / / Screw Cortical 3.5x20 - [id number] Implanted:Qty: 1 on 01/02/2024 by Zachary Reese DO at [facility] Left: Elbow ADILIA : ORTHOPAEDICS [id number] / / Screw Bn T10 Ft St Lk 3.5x50mm - [id number] Implanted:Qty: 1 on 01/02/2024 by Zachary Reese DO at [facility] Left: Elbow ADILIA : ORTHOPAEDICS [id number] / / documented as of this encounter Advance Directives * Full Code (Latest Code Status on File) Date Activated Date Inactivated Comments 01/02/2024 11:34 AM 01/02/2024 5:05 PM This order reflects the patients wishes and were consensually agreed upon. Question Answer Comments Discussion of Advance Direct sil occurred with: Not Discussed due to patient's condition Care Teams Garbage Person Relationship Specialty Start Date End Date June Guerrero MD [address] [place] [address] PCP - General Family Medicine 03/26/24 documented as of this encounter
--- OUTSIDE RECORDS SUMMARY | 2024-07-18 22:47 | External Medical Summary | Summary of Care ---
Author Name Unknown Organization [facility] Address [address] [place] [address] Phone [phone] Care Team Providers Care Assistant Toddler Teacher Name Role Phone Maged Katz MD Primary Care Provider [phone] Encounter Details Date Type Department Care Team (Late st Contact Info) Description 07/18/2024 Telephone [facility] [address] [place] [address] Brad Hair MD [address] [place] [address] Allergies Active Allergy Reactions Criticality Noted Date Comments Penicillins Hives 12/17/2023 Sulfa Antibiotics Nausea/vomiting 02/04/2024 documented as of this encounter (statuses as of 07/18/2024) Medications Medication Sig Dispensed Refills Start Date [...] by mouth in the morning. 30 Tablet 11 02/17/2024 Active Levothyroxine Sodium 125 MCG Oral [...] the morning. 100 Tablet 02/17/2024 Active Nystatin 000702 UNIT/GM External Powder (Nystop) Apply topically to affected area 3 times a day. Apply to skin fold under stomach 15 g 05/25/2024 Active OneTouch [place] In Vitro Strip (Glucose Blood) Use up to 4 times a day E11.9 100 Strip 05/26/2024 Active oxyCODONE HCl 5 MG Oral Tablet (Oxy IR)Indications:Histo ry of compression fracture of spine Take 1 Tablet by mouth every 8 hours as needed for Pain, Severe. 60 Tablet 06/22/2024 Active Calcitonin ([place]) 200 UNIT/ACT Nasal Solution (Fortical)Indication s:History of compression fracture of spine Administer 1 [place] into one nostril in the morning. alternate nostrils.. 3 mL 06/22/2024 Active Ozempic (1 MG/DOSE) 2 MG/1.5ML Subcutaneous Solution Pen-injector (Semaglutide (1 MG/DOSE)) Inject 1 mg under the skin once a week. 2 Each 07/02/2024 Active Alendronate Sodium 70 MG Oral Tablet (Fosamax)Indications :Senile osteoporosis Take 1 Tablet by mouth once a week. with 8 oz. water 30 minutes before first meal of the day. Remain upright for 30 min after taking tablet 5 Tablet 07/14/2024 Active documented as of this encounter (statuses as of 07/18/2024) Active Problems Problem Noted Date Diagnosed Date Senile osteoporosis 07/14/2024 History of compression fracture of spine 024 Dyslipidemia 03/25/2024 Overweight (BMI 25.0-29.9) 03/25/2024 Type 2 diabetes mellitus wit h hemoglobin A1c goal of less than 8.0% 12/30/2023 Postoperative hypothyroidism 12/30/2023 Vascular dementia 12/30/2023 History of thyroid cancer 12/30/2023 History of breast cancer 12/30/2023 Longstanding persistent atrial fibrillation 12/18 Gastroesophageal reflux disease without esophagi tis 12/30/2023 documented as of this encounter (statuses as of 07/18/2024) Resolved Problems Problem Noted Date Diagnosed Date Resolved Date Pure hypercholesterolemia 12/30/2023 Pre-operative general physical examination 12/30/2023 03/25/2024 Olecranon fracture, left, cl osed, with routine healing, subsequent encounter 12/23/2023 Overview: Changed initial encounter to subsequent 01/15/24 HL documented as of this encounter (statuses as of 07/18/2024) Immunizations Name Administration Dates Next Due COVID-19 [...] encounter Miscellaneous Notes * Telephone Encounter - Brad Hair MD - 07/18/2024 12:10 PM EDT I spoke with Tammy Smith (daughter or PT). Pt has become nearly bed bound. Daughter found her mother in bed today at 11 AM complaining of back pain. Has known compression fractures. Unclear if thereare other issues. I recommended daughter take pt to [facility] for evaluation in ER. May need admitted and ultimately SNF for a time . documented in this encounter Plan of Treatment Upcoming Encounters Date Type Department Care Team (Late st Contact Info) Description 07/21/2024 10:30 AM EDT Office Visit Ophthalmology, [facility] [address] [place] [address] Cyrus Shah, DO [address] [address] 09/27/2024 10:00 AM EST Office Visit Cardiology, [facility] [address] [place] [address] Deondre Gordillo O, DO [address] [place] [address] Health Maintenance Due Date Last Done Comments Albumin/Creatinine Ratio 1968 Hepatitis C Screening 1968 Adult Wellness Visit 2015 Zoster Vaccines (3 of 3) 04/13/2024 02/17/2024, 1203/2010 COVID-19 Vaccine ( season) 2024 04/10/2022, 11/02/2021, 02/05/2021, Additional history exists Influenza Vaccine (FLU shot) (#1) 2024 07/22/2023, 06/26/2022, 07/09/2021, Additional history exists HbA1c 07/01/2024 12/30/2023, 07/20, 03/25/2023, Additional history exists GFR 12/29/2024 12/30/2023 TSH 12/29/2024 12/30/2023 Depression Screening 01/07/2025 01/08/2024 Diabetic Foot Exam 02/16/2025 02/17/2024 Diabetic Eye Exam 03/23/2025 03/23/2024, , 02/17/2024 DXA Scan 07/07/2026 07/07/2024, 02/17, 03/03/2019, Additional history exists DTap/Tdap Vaccines (2 - Td or Tdap) 02/16/2034 02/17/2024 Pneumococcal Vaccine: 65+ Years Completed 02/08/2019, 2015, 08/24/2013 VITAMIN D LEVEL ONCE IN A LIFETIME-USE SMARTSET# [id number] Completed 10/05/2022, 07/05/2022, 08/03/2020, Additional history exists HPV (Gardasil) Vaccine Aged Out No lo nger eligible based on patient's age to complete this topic Hepatitis B Vaccine Aged Out No longe r eligible based on patient's age to complete this topic MENINGOCOCCAL (MENACTRA/MENVEO) Aged Out No longer eligible based on patient's age to complete this topic documented as of this encounter Medical Devices Implanted Type Area Patient Liaison Device Identifier Shelf Expiration Date Model / Serial / Lot Olecranon Plate Implanted:Qty: 1 on 01/02/2024 by Zachary Reese, DO at [facility] Left: Elbow [id number] / / Screw Bn T10 Ft St Lk 3.5x18mm - [id number] Implanted:Qty: 2 on 01/02/2024 by Zachary Reese, DO at [facility] Left: Elbow ADILIA : ORTHOPAEDICS [id number] / / Screw Bn T10 Ft St Lk 3.5x20mm - [id number] Implanted:Qty: 1 on 01/02/2024 by Zachary Reese, DO at [facility] Left: Elbow ADILIA : ORTHOPAEDICS [id number] / / Screw Cortical 3.5x20 - [id number] Implanted:Qty: 1 on 01/02/2024 by Zachary Reese, DO at [facility] Left: Elbow ADILIA : ORTHOPAEDICS [id number] / / Screw Bn T10 [address] Lk 3.5x50mm - [id number] Implanted:Qty: 1 on 01/02/2024 by Zachary Reese, DO at [facility] Left: Elbow ADILIA : ORTHOPAEDICS [id number] / / documented as of this encounter Advance Directives * Full Code (Latest Code Status on File) Date Activated Date Inactivated Comments 01/02/2024 11:34 AM 01/02/2024 5:05 PM This order reflects the patients wishes and were consensually agreed upon. Question Answer Comments Discussion of Advance Direct sil occurred with: Not Discussed due to patient's condition Care Teams Assistant Toddler Teacher Relationship Specialty Start Date End Date Maged Katz MD [address] [facility] [place] [address] PCP - General Family Medicine 03/26/24 documented as of this encounter
--- OUTSIDE RECORDS SUMMARY | 2024-07-18 22:47 | External Medical Summary | Summary of Care ---
Author Name Unknown Organization [facility] Address [address] [facility] [address] Phone [phone] Care Team Providers Care Clinical Nursing Intern Name Role Phone Maged Katz MD Primary Care Provider [phone] Reason for Visit * Reason Onset Date Comments Encounter Created in Error 07/05/2024 Encounter Details Date Type Department Care Team (Late st Contact Info) Description 07/05/2024 Telephone Family Practice [facility] [address] [place] [address] Maged Katz MD [address] [place] [address] Encounter Created in Error Allergies Active Allergy Reactions Criticality Noted Date Comments Penicillins Hives 12/17/2023 Sulfa Antibiotics Nausea/vomiting 02/04/2024 documented as of this encounter (statuses as of 07/06/2024) Medications Medication Sig Dispensed Refills Start Date [...] the morning. 100 Tablet 02/17/2024 Active Nystatin 732894 UNIT/GM External Powder (Nystop) Apply topically to affected area 3 times a day. Apply to skin fold under stomach 15 g 05/25/2024 Active OneTouch Verio In Vitro Strip (Glucose Blood) Use up to 4 times a day E11.9 100 Strip 11 05/26/2024 Active oxyCODONE HCl 5 MG Oral Tablet (Oxy IR)Indications:Histo ry of compression fracture of spine Take 1 Tablet by mouth every 8 hours as needed for Pain, Severe. 60 Tablet 06/22/2024 Active Calcitonin ([place]) 200 UNIT/ACT Nasal Solution (Fortical)Indication s:History of compression fracture of spine Administer 1 [place] into one nostril in the morning. alternate nostrils.. 3 mL 11 06/22/2024 Active Ozempic (1 MG/DOSE) 2 MG/1.5ML Subcutaneous Solution Pen-injector (Semaglutide (1 MG/DOSE)) Inject 1 mg under the skin once a week. 2 Each 07/02/2024 Active documented as of this encounter (statuses as of 07/06/2024) Active Problems Problem Noted Date Diagnosed Date [...] as of this encounter (statuses as of 07/06/2024) Resolved Problems Problem Noted Date Diagnosed Date Resolved Date Pure hypercholesterolemia 12/30/2023 Pre-operative general physical examination 12/30/2023 03/25/2024 Olecranon fracture, left, cl osed, with routine healing, subsequent encounter 12/23/2023 Overview: Changed initial encounter to subsequent 01/15/24 HL documented as of this encounter (statuses as of 07/06/2024) Immunizations Name Administration Dates Next Due COVID-19 [...] on file documented as of this encounter Plan of Treatment Upcoming Encounters Date Type Department Care Team (Late st Contact Info) Description 07/07/2024 1:30 PM EDT [address] [address] 07/21/2024 10:30 AM EDT Office Visit Ophthalmology, [facility] [address] [place] [address] Cryus Shah, DO [address] [place] [address] 09/27/2024 10:00 AM EST Office Visit Cardiology, [facility] [address] [place] [address] Deondre Gordillo, DO [address] [place] [address] Health Maintenance Due Date Last Done Comments Albumin/Creatinine Ratio 1968 Hepatitis C Screening 1968 Adult Wellness Visit 2015 Zoster Vaccines (3 of 3) 04/13/2024 02/17/2024, 03/2010 COVID-19 Vaccine ( - season) 2024 04/10/2022, 11/02/2021, 02/05/2021, Additional history [...] this encounter Medical Devices Implanted Type Area Flipping Machine Operator Device Identifier Shelf Expiration Date Model / Serial / Lot Olecranon Plate Implanted:Qty: 1 on 01/02/2024 by Zachary Reese DO at [facility] Left: Elbow [id number] / / Screw Bn T10 Ft St Lk 3.5x18mm - [id number] Implanted:Qty: 2 on 01/02/2024 by Zachary Reese DO at [facility] Left: Elbow ADILIA : ORTHOPAEDICS [id number] / / Screw Bn T10 Ft St Lk 3.5x20mm - [id number] Implanted:Qty: 1 on 01/02/2024 by Zachary Reese DO at [facility] Left: Elbow ADILIA : ORTHOPAEDICS [id number] / / Screw Cortical 3.5x20 - [id number] Implanted:Qty: 1 on 01/02/2024 by Zachary Reese DO at [facility] Left: Elbow ADILIA : ORTHOPAEDICS [id number] / / Screw Bn T10 Ft St Lk 3.5x50mm - [id number] Implanted:Qty: 1 on 01/02/2024 by Zachary Reese DO at [facility] Left: Elbow ADILIA : ORTHOPAEDICS [id number] / / documented as of this encounter Advance Directives * Full Code (Latest Code Status on File) Date Activated Date Inactivated Comments 01/02/2024 11:34 AM 01/02/2024 5:05 PM This order reflects the patients wishes and were consensually agreed upon. Question Answer Comments Discussion of Advance Direct sil occurred with: Not Discussed due to patient's condition Care Teams Clinical Nursing Intern Relationship Specialty Start Date End Date Maged Katz MD [address] [place] [address] PCP - General Family Medicine 03/26/24 documented as of this encounter
--- OUTSIDE RECORDS SUMMARY | 2024-07-18 22:47 | External Medical Summary | Summary of Care ---
Author Name Unknown Organization [facility] Address [address] [facility] [address] Phone [phone] Care Team Providers Care Cage Maker Machine Name Role Phone June Katz MD Primary Care Provider [phone] Reason for Visit * Reason Onset Date Comments Medication Refill 06/27/2024 Encounter Details Date Type Department Care Team (Late st Contact Info) Description 06/27/2024 Refill Family Practice [facility] [place] [address] [facility] [place] [address] Uriel Cobb, DO [address] [facility] [place] [address] Allergies Active Allergy Reactions Criticality Noted Date Comments Penicillins Hives 12/17/2023 Sulfa Antibiotics Nausea/vomiting 02/04/2024 documented as of this encounter (statuses as of 06/28/2024) Medications Medication Sig Dispensed Refills Start Date [...] the morning. 100 Tablet 02/17/2024 Active Nystatin 857407 UNIT/GM External Powder (Nystop) Apply topically to [...] Pain, Severe. 60 Tablet 06/22/2024 Active Calcitonin ([place]) 200 UNIT/ACT Nasal Solution (Fortical)Indicati ons:History of compression fracture of spine Administer 1 [place] into one nostril in the morning. alternate nostrils.. 3 mL 06/22/2024 Active Ozempic (1 MG/DOSE) 2 MG/1.5ML Subcutaneous Solution Pen-injector (Semaglutide (1 MG/DOSE)) Inject 1 mg under the skin once a week. 2 Each 06/28/2024 Active Ozempic (1 MG/DOSE) 2 MG/1.5ML Subcutaneous Solution Pen-injector (Semaglutide (1 MG/DOSE)) Inject 1 mg under the skin once a week. 2 Each 12/30/2023 Discontinue d(Refill) documented as of this encounter (statuses as of 06/28/2024) Active Problems Problem Noted Date Diagnosed Date [...] as of this encounter (statuses as of 06/28/2024) Resolved Problems Problem Noted Date Diagnosed Date Resolved Date Pure hypercholesterolemia 12/30/2023 Pre-operative general physical examination 12/30/2023 03/25/2024 Olecranon fracture, left, cl osed, with routine healing, subsequent encounter 12/23/2023 Overview: Changed initial encounter to subsequent 01/15/24 HL documented as of this encounter (statuses as of 06/28/2024) Immunizations Name Administration Dates Next Due COVID-19 [...] the money to buy more. Never true 02/17/20 24 Within the past 12 months, t he food you bought just didn't last and you didn't have money to get more. Never true 02/17/2024 Childcare Answer Date Recorded Do you feel overwhelmed with taking care of a child, family member or friend? No 02/17/2024 Does your family need help f inding childcare? (Household - for ages 0-17 years) Not on file 02/17/2024 Clothing Answer Date Recorded Have you been unable to get clothing when it was really needed? No 02/17/2024 Is your family able to get c lothes or diapers when needed? (Household - for ages 0-17 years) Not on file 02/17/2024 Personal Safety Answer Date Recorded Do you feel unsafe or have concerns for your saf ety? No 02/17/2024 Do you have concerns for you r family's safety? (Household - for ages 0-17 years) Not on file 02/17/2024 Utilities Answer Date Recorded Do you have trouble paying y our heating, water, or electric bill? No 02/17/2024 Is your family able to pay t he heat, water, or electric bill? (Household - for ages 0-17 years) Not on file 02/17/2024 Does your family have access to good internet? (Household - for ages 0-17 years) Not on file 02/17/2024 Employment Status Answer Date Recorded Are you unemployed or without regular income? No 02/17/2024 Does the household have a re gular source of income? (Household - for ages 0-17 years) Not on file 02/17/2024 Social Connections Answer Date Recorded How often do you feel lonely or isolated from those around you? Sometimes 02/17/2024 Financial Resource Strain Answer Date R ecorded Do you have any trouble payi ng for your medications, or do you think you might in the future? No 02/17/2024 Does your family have troubl e paying for medicine? (Household - for ages 0-17 years) Not on file 02/17/2024 Transportation Needs Answer Date Record ed READ ONLY Do you have troubl e getting a ride to medical visits or work? Never True 02/17/2024 Does your family have a hard time getting a ride to doctors visits? (Household - for ages 0-17 years) Not on file 02/17/2024 Has lack of transportation k ept you from medical appointments, meetings, work, or from getting things needed for daily living? Check all that apply. (Adult - for ages 18 years and over) Not on file 02/17/2024 Do you (or your family) have trouble finding or paying for a ride (transportation)? (Household - for ages 0-17 years) Not on file 02/17/2024 Housing Stability Answer Date Recorded Do you currently live in a s helter or have no steady place to sleep at night? No 02/17/2024 READ ONLY Do you think you a re at risk of becoming homeless? No 02/17/2024 Does your family worry about paying for your home or becoming homeless? (Household - for ages 0-17 years) Not on file 0 02/17/2024 Are you homeless or worried that you might be in the future? (Adult - for ages 18 years and over) Not on file Are you (or your family) cherrie eless or worried that you might be in the future? (Household - for ages 0-17 years) Not on file Food Insecurity Answer Date Recorded Do you need food for this week? No 02/17/2024 Are you able to get enough f ood for your family? (Household - for ages 0-17 years) Not on file 02/17/2024 Does your family need food t his week? (Household - for ages 0-17 years) Not on file 02/17/2024 Do you always have enough fo od for your family? (Household - for ages 0-17 years) Not on file 02/17/2024 Sex and Gender Information Value Date Recorded Sex Assigned at Female 01/27/2024 8:14 PM EDT Gender Identity Female 01/27/2024 8:14 PM EDT Sexual Orientation Straight 01/27/2024 8: 14 PM EDT Job Start Date Occupation Industry Not on file Not on file Not on file documented as of this encounter Miscellaneous Notes * Telephone Encounter - June Katz MD - 06/28/2024 8:49 AM EDTSigned Prescriptions: Disp Refills Ozempic (1 MG/DOSE) 2 MG/1.5ML Subcutaneou*2 Each 0 Sig: Inject 1 mg under the skin once a week. Authorizing Provider: JUNE KATZ * Telephone Encounter - Katie Whalen LPN - 06/28/2024 8:43 AM EDT Did you pend patient's preferred pharmacy and medication before forwarding?yes Pharmacy: [facility] [id number] [place] Pending Prescriptions: Disp Refills Ozempic (1 MG/DOSE) [...] Care Team (Late st Contact Info) Description 06/28/2024 12:00 PM EDT [facility] Coordination [facility] [address] [facility] [address] Opal Munson, Community [facility] Professor Of Chemical Engineering [address] [facility] [place] [address] 07/02/2024 1:20 PM EDT Office Visit Pharmacy, [facility] [address] [place] [address] [facility] [address] [place] [address] 07/07/2024 1:30 PM EDT Imaging Radiology, [place] [address] [facility] [place] [address] 07/21/2024 10:30 AM EDT [facility] [address] [place] [address] Cyrus Shah, DO [address] [place] [address] 09/27/2024 10:00 AM EST Office Visit Cardiology, [facility] [address] [place] [address] Deondre Gordillo, [address] [place] [address] Health Maintenance Due Date Last Done Comments [...] this encounter Medical Devices Implanted Type Area Utility Sales Representative Device Identifier Shelf Expiration Date Model / Serial / Lot Olecranon Plate Implanted:Qty: 1 on 01/02/2024 by Zachary Reese DO at [facility]: Elbow [id number] / / Screw Bn T10 Ft St Lk 3.5x18mm - [id number] Implanted:Qty: 2 on 01/02/2024 by Zachary Reese DO at [facility] Left: Elbow ADILIA : ORTHOPAEDICS [id number] / / Screw Bn T10 Ft St Lk 3.5x20mm - [id number] Implanted:Qty: 1 on 01/02/2024 by Zachary Reese DO at [facility] Left: Elbow ADILIA : ORTHOPAEDICS [id number] / / Screw Cortical 3.5x20 - [id number] Implanted:Qty: 1 on 01/02/2024 by Zachary Reese DO at [facility] Left: Elbow ADILIA : ORTHOPAEDICS [id number] / / Screw Bn T10 [address] Lk 3.5x50mm - [id number] Implanted:Qty: 1 on 01/02/2024 by Zachary Reese DO at [facility] Left: Elbow ADILIA : ORTHOPAEDICS [id number] / / documented as of this encounter Advance Directives * Full Code (Latest Code Status on File) Date Activated Date Inactivated Comments 01/02/2024 11:34 AM 01/02/2024 5:05 PM This order reflects the patients wishes and were consensually agreed upon. Question Answer Comments Discussion of Advance Direct sil occurred with: Not Discussed due to patient's condition Care Teams Cage Maker Machine Relationship Specialty Start Date End Date June Katz MD [address] [place] [address] PCP - General Family Medicine 03/26/24 documented as of this encounter
--- OUTSIDE RECORDS SUMMARY | 2024-07-18 22:47 | External Medical Summary | Summary of Care ---
Author Name Unknown Organization [facility] Address [address] [place] [address] Phone [phone] Care Team Providers Care Line Fisher Name Role Phone Maged Katz MD Primary Care Provider [phone] Reason for Visit * Reason Onset Date Comments Advice 07/16/2024 Encounter Details Date Type Department Care Team (Late st Contact Info) Description 07/16/2024 Telephone Family Practice [facility] [address] [place] [address] Maged Katz MD [address] [place] [address] Advice Allergies Active Allergy Reactions Criticality Noted Date Comments Penicillins Hives 12/17/2023 Sulfa Antibiotics Nausea/vomiting 02/04/2024 documented as of this encounter (statuses as of 07/16/2024) Medications Medication Sig Dispensed Refills Start Date [...] the morning. 100 Tablet 02/17/2024 Active Nystatin 988792 UNIT/GM External Powder (Nystop) Apply topically to [...] Pain, Severe. 60 Tablet 06/22/2024 Active Calcitonin ([place]) 200 UNIT/ACT Nasal Solution (Fortical)Indication s:History of compression fracture of spine Administer 1 [place] into one nostril in the morning. alternate [...] as of this encounter (statuses as of 07/16/2024) Active Problems Problem Noted Date Diagnosed Date [...] as of this encounter (statuses as of 07/16/2024) Resolved Problems Problem Noted Date Diagnosed Date Resolved Date Pure hypercholesterolemia 12/30/2023 Pre-operative general physical examination 12/30/2023 03/25/2024 Olecranon fracture, left, cl osed, with routine healing, subsequent encounter 12/23/2023 Overview: Changed initial encounter to subsequent 01/15/24 HL documented as of this encounter (statuses as of 07/16/2024) Immunizations Name Administration Dates Next Due COVID-19 [...] encounter Miscellaneous Notes * Telephone Encounter - Claribel Garcia RN - 07/16/2024 2:57 PM EDT Spoke with daughter, see CM outreach encounter * Telephone Encounter - Homa Steinberg OSA - 07/16/2024 10:08 AM EDT Daughter Tammy is calling, patient has not been feeling well, she gets sick every time she eats, she get nauseated, she has a fracture in her back, the pain meds are not helping her. Tammy isn't sure if the pain is causing her to be sick or what is going on . She would like her to be seen soon. Ihave nothing open. Please call her back to advise. documented in this encounter Plan of Treatment Upcoming Encounters Date Type Department Care Team (Late st Contact Info) Description 07/21/2024 10:30 AM EDT Office Visit Ophthalmology, [address] [place] [address] Cyrus Shah, DO [address] [place] [address] 09/27/2024 10:00 AM EST Office Visit Cardiology, [facility] [address] [place] [address] Deondre Gordillo, DO [address] [place] [address] Health Maintenance Due Date Last Done Comments [...] D LEVEL ONCE IN A LIFETIME-USE SMARTSET# [id number] Completed 10/05/2022, 07/05/2022, 08/03/2020, Additional history exists [...] this encounter Medical Devices Implanted Type Area Boiler Helper Device Identifier Shelf Expiration Date Model / Serial / Lot Olecranon Plate Implanted:Qty: 1 on 01/02/2024 by Zachary Reese DO at [facility] Left: Elbow [id number] / / Screw Bn T10 Ft St Lk 3.5x18mm - [id number] Implanted:Qty: 2 on 01/02/2024 by Zachary Reese DO at [facility] Left: Elbow ADILIA : ORTHOPAEDICS [id number] / / Screw Bn T10 [address] Lk 3.5x20mm - [id number] Implanted:Qty: 1 on 01/02/2024 by Zachary Reese DO at [facility] Left: Elbow ADILIA : ORTHOPAEDICS [id number] / / Screw Cortical 3.5x20 - [id number] Implanted:Qty: 1 on 01/02/2024 by Zachary Reese DO at [facility] Left: Elbow ADILIA : ORTHOPAEDICS [id number] / / Screw Bn T10 [address] Lk 3.5x50mm - [id number] Implanted:Qty: 1 on 01/02/2024 by Zachary Reese DO at [facility] Left: Elbow ADILIA : ORTHOPAEDICS [id number] / / documented as of this encounter Advance Directives * Full Code (Latest Code Status on File) Date Activated Date Inactivated Comments 01/02/2024 11:34 AM 01/02/2024 5:05 PM This order reflects the patients wishes and were consensually agreed upon. Question Answer Comments Discussion of Advance Direct sil occurred with: Not Discussed due to patient's condition Care Teams Line Fisher Relationship Specialty Start Date End Date Maged Katz MD [address] [facility] [place] [address] PCP - General Family Medicine 03/26/24 documented as of this encounter
--- OUTSIDE RECORDS SUMMARY | 2024-07-18 22:47 | External Medical Summary | Summary of Care ---
Author Name Unknown Organization [facility] Address [address] [place] [address] Phone [phone] Care Team Providers Care Brassiere Cup Mold Cutter Name Role Phone Maged Katz MD Primary Care Provider [phone] Encounter Details Date Type Department Care Team (Late st Contact Info) Description 07/08/2024 Population Health External Data Unspecified Department Allergies Active Allergy Reactions Criticality Noted Date Comments Penicillins Hives 12/17/2023 Sulfa Antibiotics Nausea/vomiting 02/04/2024 documented as of this encounter (statuses as of 07/12/2024) Medications Medication Sig Dispensed Refills Start Date [...] the morning. 100 Tablet 02/17/2024 Active Nystatin 140207 UNIT/GM External Powder (Nystop) Apply topically to [...] Pain, Severe. 60 Tablet 06/22/2024 Active Calcitonin ([place]) 200 UNIT/ACT Nasal Solution (Fortical)Indication s:History of compression fracture of spine Administer 1 [place] into one nostril in the morning. alternate nostrils.. 3 mL 06/22/2024 Active Ozempic (1 MG/DOSE) 2 MG/1.5ML Subcutaneous Solution Pen-injector (Semaglutide (1 MG/DOSE)) Inject 1 mg under the skin once a week. 2 Each 07/02/2024 Active documented as of this encounter (statuses as of 07/12/2024) Active Problems Problem Noted Date Diagnosed Date [...] as of this encounter (statuses as of 07/12/2024) Resolved Problems Problem Noted Date Diagnosed Date Resolved Date Pure hypercholesterolemia 12/30/2023 Pre-operative general physical examination 12/30/2023 03/25/2024 Olecranon fracture, left, cl osed, with routine healing, subsequent encounter 12/23/2023 Overview: Changed initial encounter to subsequent 01/15/24 HL documented as of this encounter (statuses as of 07/12/2024) Immunizations Name Administration Dates Next Due COVID-19 [...] 07/21/2024 10:30 AM EDT Office Visit Ophthalmology, [facility] [address] [place] [address] Cyrus Shah, DO [address] [place] [address] 09/27/2024 10:00 AM EST Office Visit Cardiology, [facility] [address] [place] [address] Deondre Gordillo, DO [address] [place] [address] Health Maintenance Due Date Last Done Comments [...] Diabetic Eye Exam 03/23/2025 03/23/2024, , 02/17/2024 DTap/Tdap Vaccines (2 - Td or Tdap) 02/16/2034 02/17/2024 DXA Scan 07/07/2034 07/07/2024, 02/17, 03/03/2019, Additional history exists Pneumococcal Vaccine: 65+ Years [...] this encounter Medical Devices Implanted Type Area Director Hematology Device Identifier Shelf Expiration Date Model / Serial / Lot Olecranon Plate Implanted:Qty: 1 on 01/02/2024 by Zachary Reese DO at [facility] Left: Elbow [id number] / / Screw Bn T10 Ft St Lk 3.5x18mm - [id number] Implanted:Qty: 2 on 01/02/2024 by Zachary Reese DO at [facility] Left: Elbow ADILIA : ORTHOPAEDICS [id number] / / Screw Bn T10 [address] Lk 3.5x20mm - [id number] Implanted:Qty: 1 on 01/02/2024 by Zachary Reese DO at [facility] Left: Elbow ADILIA : ORTHOPAEDICS [id number] / / Screw Cortical 3.5x20 - [id number] Implanted:Qty: 1 on 01/02/2024 by Zachary Reese DO at [facility] Left: Elbow ADILIA : ORTHOPAEDICS [id number] / / Screw Bn T10 [address] Lk 3.5x50mm - [id number] Implanted:Qty: 1 on 01/02/2024 by Zachary Reese DO at [facility] Left: Elbow ADILIA : ORTHOPAEDICS [id number] / / documented as of this encounter Advance Directives * Full Code (Latest Code Status on File) Date Activated Date Inactivated Comments 01/02/2024 11:34 AM 01/02/2024 5:05 PM This order reflects the patients wishes and were consensually agreed upon. Question Answer Comments Discussion of Advance Direct sil occurred with: Not Discussed due to patient's condition Care Teams Brassiere Cup Mold Cutter Relationship Specialty Start Date End Date Maged Katz MD [address] [place] [address] PCP - General Family Medicine 03/26/24 documented as of this encounter
--- OUTSIDE RECORDS SUMMARY | 2024-07-18 22:47 | External Medical Summary | Summary of Care ---
Author Name Unknown Organization [facility] Address [address] [place] [address] Phone [phone] Care Team Providers Care Helicopter Crew Chief Name Role Phone June Guerrero MD Primary Care Provider [phone] [phone] Reason for Visit * Reason Onset Date Comments Medication Refill 06/27/2024 Medication Pre-auth 06/27/2024 Ozempic (1 M G/DOSE) 2 MG/1.5ML Subcutaneous Solution Pen-injector (Semaglutide (1 MG/DOSE) Encounter Details Date Type Department Care Team (Late st Contact Info) Description 06/27/2024 Refill [facility] Practice [facility] [address] [place] [address] Uriel Cobb, [address] [place] [address] Allergies Active Allergy Reactions Criticality Noted Date Comments Penicillins Hives 12/17/2023 Sulfa Antibiotics Nausea/vomiting 02/04/2024 documented as of this encounter (statuses as of 07/05/2024) Medications Medication Sig Dispensed Refills Start Date [...] the morning. 100 Tablet 02/17/2024 Active Nystatin 216143 UNIT/GM External Powder (Nystop) Apply topically to [...] Pain, Severe. 60 Tablet 06/22/2024 Active Calcitonin ([place]) 200 UNIT/ACT Nasal Solution (Fortical)Indicati ons:History of compression fracture of spine Administer 1 [place] into one nostril in the morning. alternate [...] as of this encounter (statuses as of 07/05/2024) Active Problems Problem Noted Date Diagnosed Date [...] as of this encounter (statuses as of 07/05/2024) Resolved Problems Problem Noted Date Diagnosed Date Resolved Date Pure hypercholesterolemia 12/30/2023 Pre-operative general physical examination 12/30/2023 03/25/2024 Olecranon fracture, left, cl osed, with routine healing, subsequent encounter 12/23/2023 Overview: Changed initial encounter to subsequent 01/15/24 HL documented as of this encounter (statuses as of 07/05/2024) Immunizations Name Administration Dates Next Due COVID-19 [...] encounter Miscellaneous Notes * Telephone Encounter - Victorina Zuniga, poster - 07/05/2024 2:15 PM EDT Pt's ec calling to inform doctor that the patient's insurance will not pay for this medication without a completed prior authorization. Did confirm this information with the pharmacy. Pt's current insurance information is as follows: Patient name: Myra Farris ID number: [id number] BIN number: [id number] PCN number: [id number] Group number: Subscriber name: Myra Farris Primary or Secondary Insurance:Primary Medication: Ozempic (1 MG/DOSE) 2 MG/1.5ML Subcutaneous Solution Pen-injector (Semaglutide (1 MG/DOSE) Reason for Request: sinan required Pharmacy and phone number: [facility] [address] [address] [place] [address] Rx plan and phone number: [facility] [phone] Is this a new medication for the patient? No. How did the patient obtain the medication on the lastfill? It was covered last time on this same insurance. What alternative medications does the pharmacy have in stock?: n/a Thank you, [facility] 07/05/2024, 2:15 PM * Telephone Encounter - [facility] - 06/28/2024 10:08 AM EDT Signed Prescriptions: [...] preferred pharmacy and medication before forwarding?yes Pharmacy: [facility] [address] [place] [address] CIELO [place] Pending Prescriptions: Disp Refills Ozempic (1 MG/DOSE) [...] Description 07/07/2024 1:30 PM EDT [address] [address] 07/21/2024 10:30 AM EDT Office Visit Ophthalmology, [facility] [address] [place] [place] [address] Cyrus Shah, DO [address] [place] [address] 09/27/2024 10:00 AM EST Office Visit Cardiology, [facility] [address] [address] Deondre Gordillo, DO [address] [place] [address] Health Maintenance Due Date Last Done Comments Albumin/Creatinine Ratio 1968 Hepatitis C Screening 1968 Adult Wellness Visit 2015 Zoster Vaccines (3 of 3) 04/13/2024 02/17/2024, 1203/2010 COVID-19 Vaccine ( - season) 2024 04/10/2022, [...] this encounter Medical Devices Implanted Type Area Janitorial Account Manager Device Identifier Shelf Expiration Date Model / Serial / Lot Olecranon Plate Implanted:Qty: 1 on 01/02/2024 by Zachary Reese DO at OR [facility] Left: Elbow [id number] / / Screw Bn T10 Ft St Lk 3.5x18mm - [id number] Implanted:Qty: 2 on 01/02/2024 by [place], Zachary Rex [place], DO at OR [facility] Left: Elbow ADILIA : ORTHOPAEDICS [id number] / / Screw Bn T10 Ft St Lk 3.5x20mm - [id number] Implanted:Qty: 1 on 01/02/2024 by Zachary Reese, DO at OR [facility] Left: Elbow ADILIA : ORTHOPAEDICS [id number] / / Screw Cortical 3.5x20 - [id number] Implanted:Qty: 1 on 01/02/2024 by Zachary Reese, DO at OR [facility] Left: Elbow ADILIA : ORTHOPAEDICS [id number] / / Screw Bn T10 Ft St Lk 3.5x50mm - [id number] Implanted:Qty: 1 on 01/02/2024 by Zachary Reese, DO at OR [facility] Left: Elbow ADILIA : ORTHOPAEDICS [id number] / / documented as of this encounter Advance Directives * Full Code (Latest Code Status on File) Date Activated Date Inactivated Comments 01/02/2024 11:34 AM 01/02/2024 5:05 PM This order reflects the patients wishes and were consensually agreed upon. Question Answer Comments Discussion of Advance Direct sil occurred with: Not Discussed due to patient's condition Care Teams Helicopter Crew Chief Relationship Specialty Start Date End Date June Guerrero MD [address] [place] [address] PCP - General Family Medicine 03/26/24 documented as of this encounter
--- OUTSIDE RECORDS SUMMARY | 2024-07-18 22:47 | External Medical Summary | Summary of Care ---
Author Name Unknown Organization [facility] Address [address] [facility] [address] Phone [phone] Care Team Providers Care Paid Search Analyst Name Role Phone Maged Katz MD Primary Care Provider [phone] Reason for Visit * Reason Comments Dosage Adjustment In Person (Anticoag Cl inic) Diabetes Education * Evaluate & Treat - Unlimited Visits (Within 10 days (routine)) - Authorized Specialty Diagnoses / Procedures Referred By Padmini benson Referred To Contact Pharmacist / Pharmacy Diagnoses Type 2 diabetes mellitus with hemoglobin A1c goal of less than 8.0% (HCC) Maged Katz MD [address] [place] [address] Referral ID Status Reason Start Date Expiration Date Visits Requested Visits Authorized [id number] Authorized Specialty Services Required 05/27/2024 11/23/2024 99 99 Encounter Details Date Type Department Care Team (Late st Contact Info) Description 07/02/2024 1:20 PM EDT Office Visit Pharmacy, [facility] [address] [place] [address] [facility] [address] [address] Type 2 diabetes mellitus with hemoglobin A1c goal of less than 8.0% (HCC)* Allergies Active Allergy Reactions Criticality Noted Date Comments Penicillins Hives 12/17/2023 Sulfa Antibiotics Nausea/vomiting 02/04/2024 documented as of this encounter (statuses as of 07/02/2024) Medications Medication Sig Dispensed Refills Start Date End Date Status Acetaminophen ER 650 MG Oral Tablet Extended Release (Acetaminophen 8 Hour) Take 1 Tablet by mouth every 8 hours as needed. Active Apixaban 5 MG Oral Tablet (Eliquis) Take 1 Tablet by mouth in the morning and 1 Tablet before bedtime. 60 Tablet 02/17/2024 Active Atorvastatin Calcium 40 MG Oral [...] the morning. 100 Tablet 02/17/2024 Active Nystatin 880978 UNIT/GM External Powder (Nystop) Apply topically to [...] Pain, Severe. 60 Tablet 06/22/2024 Active Calcitonin ([place]) 200 UNIT/ACT Nasal Solution (Fortical)Indicati ons:History of compression fracture of spine Administer 1 [place] into one nostril in the morning. alternate nostrils.. 3 mL 11 06/22/2024 Active Ozempic (1 MG/DOSE) 2 MG/1.5ML Subcutaneous Solution Pen-injector (Semaglutide (1 MG/DOSE)) Inject 1 mg under the skin once a week. 2 Each 07/02/2024 Active Ozempic (1 MG/DOSE) 2 MG/1.5ML Subcutaneous Solution Pen-injector (Semaglutide (1 MG/DOSE)) Inject 1 mg under the skin once a week. 2 Each 06/28/2024 Discontinue d(Refill) documented as of this encounter (statuses as of 07/02/2024) Active Problems Problem Noted Date Diagnosed Date [...] as of this encounter (statuses as of 07/02/2024) Resolved Problems Problem Noted Date Diagnosed Date Resolved Date Pure hypercholesterolemia 12/30/2023 Pre-operative general physical examination 12/30/2023 03/25/2024 Olecranon fracture, left, cl osed, with routine healing, subsequent encounter 12/23/2023 Overview: Changed initial encounter to subsequent 01/15/24 HL documented as of this encounter (statuses as of 07/02/2024) Immunizations Name Administration Dates Next Due COVID-19 [...] No 06/28/2024 Does the household have a [facility] source of income? (Household - for ages [...] on file documented as of this encounter Progress Notes * Lexie Novak, [facility] - 07/02/2024 1:02 PM EDT Medication Therapy Disease Management Clinic - Diabetes Management Progress Note Myra Farris, identified by name and date of , is a 74 year old female being seen for diabetes management/education. Patient presents for return diabetic visit. DIABETES: Current diabetic medications: Ozempic 1 mg weekly Metformin 500 mg 2 tabs BID Medication Injection Site: Abdomen Lifestyle: Diet: unchanged Glucose Review/SMBG: Readings obtained from patient documented BG logbook Hypoglycemia: Does your blood sugar go below 70 mg/dL? No Hyperglycemia symptoms present: none Recent Labs Units 12/30/23 1051 08/05/23 0447 03/25/23 1017 HEMOGLOBIN A1C - [facility] % 7.0* -- -- HEMOGLOBIN, [id number] % -- 7.0* 7.7* Recent Labs Units 12/30/23 1051 ESTIMATED GLOMERULAR FILTRATION RATE - [facility] mL/min >90 CREATININE - [facility] mg/dL 0.7 HYPERTENSION: Patient on ACEi/ARB: no, not indicated BP Readings from Last 3 Encounters: 06/28/24 120/70 03/26/24 138/70 02/17/24 136/70 Blood pressure at goal: yes HYPERLIPIDEMIA: No results for input(s): "LDLDIRECT", "LDLCALC", "LDLCHOL", "LDL" in the last 62896 hours. Does patient have clinical ASCVD? No, is patient LDL less than 70mg/dL? Yes HEALTH MAINTENANCE REVIEW: Health Maintenance Due Topic Date Due Albumin/Creatinine Ratio Never done Hepatitis C Screening Never done Adult Wellness Visit Never done Zoster Vaccines (3 of 3) 04/13/2024 Influenza Vaccine (FLU shot) (1) 06/20/2024 COVID-19 Vaccine ( season) 2024 HbA1c 07/01/2024 ASSESSMENT & PLAN: BG Readings - Blood sugars controlled. Medications - Reviewed current regimen, patient is adherent to regimen. Diet, Exercise, Lifestyle - No significant lifestyle changes since last visit. Discussed with patient . Patient is agreeable to SMBG 1-2 time(s) daily. Patient aware to contact clinic if any hypoglycemia before next visit. MEDICATION CHANGES: no change Diabetic Medications: Ozempic 1 mg weekly Metformin 500 mg 2 tabs BID HEALTH MAINTENANCE INTERVENTIONS: Labs: Up to Date Immunizations: Up to Date Foot Exam: Up to Date Eye Exam: Up to Date Annual Wellness Visit: N/A FOLLOW UP: Return to clinic as needed I spent a total of 20-29 minutes (exact time 20 mins) on the date of service in preparation, delivery, and documentation of the care provided to Myra Farris excluding any time spent in the performance of separately billed services. Lexie Novak RP Clinical Pharmacist - Literary Writer Medication Therapy Management Clinic 07/02/2024, 1:03 PM documented in this encounter Plan of Treatment Upcoming Encounters Date Type Department Care Team (Late st Contact Info) Description 07/07/2024 1:30 PM EDT Imaging Radiology, [place] [address] [facility] [place] [address] 07/21/2024 10:30 AM EDT Office Visit Ophthalmology, [facility] [address] [place] [address] Cyrus Shah, DO [address] [place] [address] 09/27/2024 10:00 AM EST Office Visit Cardiology, [facility] [address] [place] [address] Deondre Gordillo, DO [address] [place] [address] Health Maintenance Due Date Last Done Comments [...] this encounter Medical Devices Implanted Type Area Shop Lead Device Identifier Shelf Expiration Date Model / Serial / Lot Olecranon Plate Implanted:Qty: 1 on 01/02/2024 by Zachary Reese DO at OR [facility] Left: Elbow [id number] / / Screw Bn T10 Ft St Lk 3.5x18mm - [id number] Implanted:Qty: 2 on 01/02/2024 by Zachary Reese DO at OR [facility] Left: Elbow ADILIA : ORTHOPAEDICS [id number] / / Screw Bn T10 Ft St Lk 3.5x20mm - [id number] Implanted:Qty: 1 on 01/02/2024 by Zachary Reese DO at OR [facility] Left: Elbow ADILIA : ORTHOPAEDICS [id number] / / Screw Cortical 3.5x20 - [id number] Implanted:Qty: 1 on 01/02/2024 by Zachary Reese DO at OR [facility] Left: Elbow ADILIA : ORTHOPAEDICS [id number] / / Screw Bn T10 [address] Lk 3.5x50mm - [id number] Implanted:Qty: 1 on 01/02/2024 by Zachary Reese DO at OR [facility] Left: Elbow ADILIA : ORTHOPAEDICS [id number] / / documented as of this encounter Visit Diagnoses Diagnosis Type 2 diabetes mellitus with hemoglobin A1c goal of less than 8.0% (HCC)- Primary documented in this encounter Advance Directives * Full Code (Latest Code Status on File) Date Activated Date Inactivated Comments 01/02/2024 11:34 AM 01/02/2024 5:05 PM This order reflects the patients wishes and were consensually agreed upon. Question Answer Comments Discussion of Advance Direct sil occurred with: Not Discussed due to patient's condition Care Teams Paid Search Analyst Relationship Specialty Start Date End Date Maged Katz MD [address] [place] [address] PCP - General Family Medicine 03/26/24 documented as of this encounter
--- OUTSIDE RECORDS SUMMARY | 2024-07-18 22:47 | External Medical Summary | Summary of Care ---
Author Name Unknown Organization [facility] Address [address] [place] [address] Phone [phone] Care Team Providers Care Software Asset Management Analyst Name Role Phone Maged Katz MD Primary Care Provider [phone] Encounter Details Date Type Department Care Team (Late st Contact Info) Description 06/28/2024 12:00 PM EDT Home Visit Care Coordination and Integration [address], [place] [id number] Opal Munson [facility] Therapeutic Recreation Assistant [address], [place] [id number] Allergies Active Allergy Reactions Criticality Noted Date [...] the morning. 100 Tablet 02/17/2024 Active Nystatin 356130 UNIT/GM External Powder (Nystop) Apply topically to [...] Pain, Severe. 60 Tablet 06/22/2024 Active Calcitonin ([place]) 200 UNIT/ACT Nasal Solution (Fortical)Indicati ons:History of compression fracture of spine Administer 1 [place] into one nostril in the morning. alternate [...] on file documented as of this encounter Last Filed Vital Signs Vital Sign Reading Time Taken Comments Blood Pressure 120/70 06/28/2024 1:31 PM EDT Pulse 68 06/28/2024 1:31 PM EDT Temperature 36.4 C (97.6 F) 06/28/2024 1:31 PM ED T Respiratory Rate 20 06/28/2024 1:31 PM EDT Oxygen Saturation 98% 06/28/2024 1:31 PM EDT Inhaled Oxygen Concentration - - Weight - - Height - - Body Mass Index - - documented in this encounter Progress Notes * Opal [facility]son [facility] Therapeutic Recreation Assistant - 06/28/2024 12:29 PM EDT Telemedicine visit: No [facility] Therapeutic Recreation Assistant (JOVITA) documentation: CHW home visit per DOMINGO Mckeon CHW met with pt and her daughter, Tammy this date. Tammy states that her mother is needing more assistance in the morning with care, breakfast, and just a good morning routine. CHW contacted [facility] for options program. They stated that the options program is on a waiting list that is a year long. Options only offers 2 hours a week. Tammy agreed to at least set up the appointment to get the application in. Tammy is asking about a walk in shower. CHW has no contacts with any type of contractor to be ableto do this type of work. Medication rec completed. Pt has pharmacy blister packs and her daughter makes sure she takes her medication. Pt lives in a mobil home alone and her daughter lives next door and is there to help as needed. No safety concerns with the home. Electronically signed by Opal Munson [facility] Therapeutic Recreation Assistant at 07/05/2024 8:14 AM EDT documented in this encounter Plan of Treatment Upcoming Encounters Date Type Department Care Team (Late st Contact Info) Description 07/07/2024 1:30 PM EDT Imaging Radiology, [address] [place] [address] 07/21/2024 10:30 AM EDT Office Visit Ophthalmology, [facility] [address] [place] [address] Cyrus Shah, DO [address] [place] [address] 09/27/2024 10:00 AM EST Office Visit Cardiology, [facility] [address] [place] [address] Deondre Gordillo, DO [address] [place] [address] Health Maintenance Due Date Last Done Comments [...] this encounter Medical Devices Implanted Type Area Morphology Teacher Device Identifier Shelf Expiration Date Model / Serial / Lot Olecranon Plate Implanted:Qty: 1 on 01/02/2024 by Zachary Reese DO at OR [facility] Left: Elbow [id number] / / Screw Bn T10 Ft St Lk 3.5x18mm - [id number] Implanted:Qty: 2 on 01/02/2024 by Zachary Reese DO at OR [facility] Left: Elbow ADILIA : ORTHOPAEDICS [id number] / / Screw Bn T10 [address] Lk 3.5x20mm - [id number] Implanted:Qty: 1 on 01/02/2024 by Zachary Reese DO at OR [facility] Left: Elbow ADILIA : ORTHOPAEDICS [id number] / / Screw Cortical 3.5x20 - [id number] Implanted:Qty: 1 on 01/02/2024 by Zachary Reese DO at OR [facility] Left: Elbow ADILIA : ORTHOPAEDICS [id number] / / Screw Bn T10 [address] Lk 3.5x50mm - [id number] Implanted:Qty: 1 on 01/02/2024 by Zachary Reese DO at OR [facility] Left: Elbow ADILIA : ORTHOPAEDICS [id number] / / documented as of this encounter Advance Directives * Full Code (Latest Code Status on File) Date Activated Date Inactivated Comments 01/02/2024 11:34 AM 01/02/2024 5:05 PM This order reflects the patients wishes and were consensually agreed upon. Question Answer Comments Discussion of Advance Direct sil occurred with: Not Discussed due to patient's condition Care Teams Software Asset Management Analyst Relationship Specialty Start Date End Date Maged Katz MD [address] [place] [address] PCP - General Family Medicine 03/26/24 documented as of this encounter
--- OUTSIDE RECORDS SUMMARY | 2024-07-18 22:47 | External Medical Summary | Summary of Care ---
Author Name Unknown Organization [facility] Address [address] [facility] [address] Phone [phone] Care Team Providers Care Quality Assurance Supervisor Name Role Phone Maged Katz MD Primary Care Provider [phone] Reason for Visit * Reason Onset Date Comments Encounter Created in Error 07/05/2024 Encounter Details Date Type Department Care Team (Late st Contact Info) Description 07/05/2024 Telephone Family Practice [facility] [address] [place] [address] Maged Katz MD [address] [place] [...] the morning. 100 Tablet 02/17/2024 Active Nystatin 643349 UNIT/GM External Powder (Nystop) Apply topically to [...] Pain, Severe. 60 Tablet 06/22/2024 Active Calcitonin ([place]) 200 UNIT/ACT Nasal Solution (Fortical)Indication s:History of compression fracture of spine Administer 1 [place] into one nostril in the morning. alternate [...] Description 07/07/2024 1:30 PM EDT [address], [address] [address] 07/21/2024 10:30 AM EDT Office Visit Ophthalmology, [facility] [address] [place] [address] Cyrus Shah, DO [address] [place] [address] 09/27/2024 10:00 AM EST Office Visit Cardiology, [facility] [address] [place] [address] Deondre Gordillo, DO [address] [place] [address] Health Maintenance Due Date Last Done Comments [...] this encounter Medical Devices Implanted Type Area Instrumentation Supervisor Device Identifier Shelf Expiration Date Model / Serial / Lot Olecranon Plate Implanted:Qty: 1 on 01/02/2024 by Zachary Reese DO at OR [facility] Left: Elbow [id number] / / Screw Bn T10 Ft St Lk 3.5x18mm - [id number] Implanted:Qty: 2 on 01/02/2024 by Zachary Reese DO at OR [facility] Left: Elbow ADILIA : ORTHOPAEDICS [id number] / / Screw Bn T10 [address] Lk 3.5x20mm - [id number] Implanted:Qty: 1 on 01/02/2024 by Zachary Reese DO at OR [facility] Left: Elbow ADILIA : ORTHOPAEDICS [id number] / / Screw Cortical 3.5x20 - [id number] Implanted:Qty: 1 on 01/02/2024 by Zachary Reese DO at OR [facility] Left: Elbow ADILIA : ORTHOPAEDICS [id number] / / Screw Bn T10 [address] Lk 3.5x50mm - [id number] Implanted:Qty: 1 on 01/02/2024 by Zachary Reese DO at OR [facility] Left: Elbow ADILIA : ORTHOPAEDICS [id number] / / documented as of this encounter Advance Directives * Full Code (Latest Code Status on File) Date Activated Date Inactivated Comments 01/02/2024 11:34 AM 01/02/2024 5:05 PM This order reflects the patients wishes and were consensually agreed upon. Question Answer Comments Discussion of Advance Direct sil occurred with: Not Discussed due to patient's condition Care Teams Quality Assurance Supervisor Relationship Specialty Start Date End Date Maged Katz MD [address] [place] [address] PCP - General Family Medicine 03/26/24 documented as of this encounter
--- OUTSIDE RECORDS SUMMARY | 2024-07-18 22:48 | External Medical Summary | Summary of Care ---
Author Name Unknown Organization [facility] Address [address] [address] Phone [phone] Care Team Providers Care Slitting Machine Operator Helper Name Role Phone Maged Katz MD Primary Care Provider [phone] Reason for Visit * Reason Onset Date Comments Advice 06/17/2024 Encounter Details Date Type Department Care Team (Late st Contact Info) Description 06/17/2024 Telephone Family Practice [facility] [address] [place] [address] Maged Katz MD [address] [place] [address] Advice Allergies Active Allergy Reactions Criticality Noted Date Comments Penicillins Hives 12/17/2023 Sulfa Antibiotics Nausea/vomiting 02/04/2024 documented as of this encounter (statuses as of 06/18/2024) Medications Medication Sig Dispensed Refills Start Date End Date Status Ozempic (1 MG/DOSE) 2 MG/1.5ML Subcutaneous Solution Pen-injector (Semaglutide (1 MG/DOSE)) Inject 1 mg under the skin once a week. 2 Each 12/30/2023 Active Acetaminophen ER 650 MG Oral Tablet Extended [...] in the morning. 100 Tablet 02/17/2024 Active oxyCODONE HCl 5 MG Oral Tablet (Oxy IR)Indications:Compr ession fracture of L2 vertebra with routine healing, subsequent encounter Take 1 Tablet by mouth every 8 hours as needed for Pain, Severe. 60 Tablet 03/26/2024 Active Nystatin 051792 UNIT/GM External Powder (Nystop) Apply topically to affected area 3 times a day. Apply to skin fold under stomach 15 g 05/25/2024 Active OneTouch Vercait In Vitro Strip (Glucose Blood) Use up to 4 times a day E11.9 100 Strip 11 05/26/2024 Active documented as of this encounter (statuses as of 06/18/2024) Active Problems Problem Noted Date Diagnosed Date [...] as of this encounter (statuses as of 06/18/2024) Resolved Problems Problem Noted Date Diagnosed Date Resolved Date Pure hypercholesterolemia 12/30/2023 Pre-operative general physical examination 12/30/2023 03/25/2024 Olecranon fracture, left, cl osed, with routine healing, subsequent encounter 12/23/2023 Overview: Changed initial encounter to subsequent 01/15/24 HL documented as of this encounter (statuses as of 06/18/2024) Immunizations Name Administration Dates Next Due COVID-19 [...] encounter Miscellaneous Notes * Telephone Encounter - Albina Duran OSA - 06/18/2024 1:03 PM EDT sooner appt scheduled * Telephone Encounter - Juliette Bergeron LPN - 06/18/2024 1:00 PM EDT Called and spoke with pts daughter, Please assist pt with sooner appt for ER follow up if possible? Pt has multiple concerns that need addressed. * Telephone Encounter - Homa Steinberg OSA - 06/18/2024 10:50 AM EDT Daughter Tammy is calling back, patient is not getting around well, she feels patient is unable tocare for herself, needs help with bathing, getting dressed. She does have some dementia also. She states she feels if her back wasn't hurting so bad she would be able to get around more. SHe states she is coughing and has stuffy nose. She is asking for home health nurse or some kind of care for patient Also, with her cold symptoms, what can she give her for that, what should she watch for as far as symptoms? Please call her back to advise. * Telephone Encounter - Soni Javed OSA - 06/17/2024 3:02 PM EDT Tammy, pt daughter Calling to inform the provider that Myra is having a lot of problems with her back and the pain. She is still having physical therapy come in to home but has been declining since she hurt her back again about a week ago. She has been having trouble remembering things and think it could be because her mind is more on the pain than daily tasks. The oxycodone and tylenol are given every 8 hours. Looking for recommendations to get her back better and pain control documented in this encounter Plan of Treatment Upcoming Encounters Date Type Department Care Team (Late st Contact Info) Description 06/22/2024 11:40 AM EDT Office Visit Family Practice [facility] [address] [place] [address] Maged Katz MD [address] [place] [address] 07/02/2024 1:20 PM EDT Office Visit Pharmacy, [facility] [address] [place] [address] [facility] [address] [place] [address] 07/07/2024 1:30 PM EDT [address] [address] 07/21/2024 10:30 AM EDT Office Visit Ophthalmology, [facility] [address] [place] [address] Cyrus Shah, DO [address] [place] [address] 09/27/2024 10:00 AM EST Office Visit Cardiology, [facility] [address] [place] [address] Deondre Gordillo, DO [address] [place] [address] Health Maintenance Due Date Last Done Comments Albumin/Creatinine Ratio 1968 Hepatitis C Screening 1968 Adult Wellness Visit 2015 COVID-19 Vaccine ( season) 2023 04/10/2022, 11/02/2021, 02/05/2021, Additional history exists Zoster Vaccines (3 of 3) 04/13/2024 02/17/2024, 03/2010 Influenza Vaccine (FLU shot) (#1) 2024 07/22/2023, [...] this encounter Medical Devices Implanted Type Area Dock Manager Device Identifier Shelf Expiration Date Model / Serial / Lot Olecranon Plate Implanted:Qty: 1 on 01/02/2024 by Zachary Reese, at OR [facility] Left: Elbow [id number] / / Screw Bn T10 [address]t [address] Lk 3.5x18mm - [id number] Implanted:Qty: 2 on 01/02/2024 by Zachary Reese, DO at OR [facility] Left: Elbow ADILIA : ORTH[employer] [id number] / / Screw Bn T10 Ft St Lk 3.5x20mm - [id number] Implanted:Qty: 1 on 01/02/2024 by Zachary Reese, DO at OR [facility] Left: Elbow ADILIA : ORTHOPAEDICS [id number] / / Screw Cortical 3.5x20 - [id number] Implanted:Qty: 1 on 01/02/2024 by Zachary Reese, DO at OR [facility] Left: Elbow ADILIA : ORTHOPA[employer]ICS [id number] / / Screw Bn T10 [address]t [address] Lk 3.5x50mm - [id number] Implanted:Qty: 1 on 01/02/2024 by Zachary Reese, DO at OR [facility] Left: Elbow ADILIA : ORTHOPAEDICS [id number] / / documented as of this encounter Advance Directives * Full Code (Latest Code Status on File) Date Activated Date Inactivated Comments 01/02/2024 11:34 AM 01/02/2024 5:05 PM This order reflects the patients wishes and were consensually agreed upon. Question Answer Comments Discussion of Advance Direct sil occurred with: Not Discussed due to patient's condition Care Teams Slitting Machine Operator Helper Relationship Specialty Start Date End Date Maged Katz MD [address] [facility] [place] [address] PCP - General Family Medicine 03/26/24 documented as of this encounter
--- OUTSIDE RECORDS SUMMARY | 2024-07-18 22:48 | External Medical Summary | Summary of Care ---
Author Name Unknown Organization [facility] Address [address] [facility] [place] [address] Phone [phone] Care Team Providers Care Babysitter Name Role Phone Maged Katz MD Primary Care Provider [phone] Encounter Details Date Type Department Care Team (Late st Contact Info) Description 06/22/2024 11:40 AM EDT Telemedicine Family Practice [facility] [address] [place] [address] Maged Katz MD [address] [place] [address] History of compression fracture of spine*; Type 2 diabetes mellitus with hemoglobin A1c goal of less than 8.0% (HCC); Longstanding persistent atrial fibrillation (HCC) Allergies Active Allergy Reactions Criticality Noted Date Comments Penicillins Hives 12/17/2023 Sulfa Antibiotics Nausea/vomiting 02/04/2024 documented as of this encounter (statuses as of 06/22/2024) Medications Medication Sig Dispensed Refills Start Date [...] the morning. 100 Tablet 02/17/2024 Active Nystatin 773039 UNIT/GM External Powder (Nystop) Apply topically to affected area 3 times a day. Apply to skin fold under stomach 15 g 05/25/2024 Active OneVerónica Ren In Vitro Strip (Glucose Blood) Use up to 4 times a day E11.9 100 Strip 11 05/26/2024 Active oxyCODONE HCl 5 MG Oral Tablet (Oxy IR)Indications:His tory of compression fracture of spine Take 1 Tablet by mouth every 8 hours as needed for Pain, Severe. 60 Tablet 06/22/2024 Active Calcitonin ([place]) 200 UNIT/ACT Nasal Solution (Fortical)Indicati ons:History of compression fracture of spine Administer 1 [place] into one nostril in the morning. alternate nostrils.. 3 mL 11 06/22/2024 Active oxyCODONE HCl 5 MG Oral Tablet (Oxy IR)Indications:Com pression fracture of L2 vertebra with routine healing, subsequent encounter Take 1 Tablet by mouth every 8 hours as needed for Pain, Severe. 60 Tablet 03/26/2024 Discontinue d(Refill) documented as of this encounter (statuses as of 06/22/2024) Active Problems Problem Noted Date Diagnosed Date [...] as of this encounter (statuses as of 06/22/2024) Resolved Problems Problem Noted Date Diagnosed Date Resolved Date Pure hypercholesterolemia 12/30/2023 Pre-operative general physical examination 12/30/2023 03/25/2024 Olecranon fracture, left, cl osed, with routine healing, subsequent encounter 12/23/2023 Overview: Changed initial encounter to subsequent 01/15/24 HL documented as of this encounter (statuses as of 06/22/2024) Immunizations Name Administration Dates Next Due COVID-19 [...] as of this encounter Progress Notes * Maged Katz MD - 06/22/2024 1:24 PM EDT Patient location: HOME. I was in a hospital or clinic location. After connecting through televideo,patient was verified with two unique identifiers. 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 Methods to assure confidentiality were taken. Patient acknowledged consent and understanding of pr ivacy and security of the Telemedicine visit. The patient agreed to participate. SUBJECTIVE: Myra Farris is a 74 year old female. No chief complaint on file. HPI: Video visit done today with patient's daughter, Tammy Smith. Patient was seen in the ED for back pain and was found to have acute on chronic compression fractures. She was treated for pain and discharged home. Home PT has been set up. Tammy would like to talk to case management about what her options are in terms of getting more help in the home for Myra. Patient Active Problem List Diagnosis Type 2 diabetes mellitus with hemoglobin A1c goal of less than 8.0% (HCC) Postoperative hypothyroidism Vascular dementia (HCC) History of thyroid cancer History of breast cancer Longstanding persistent atrial fibrillation (HCC) Gastroesophageal reflux disease without esophagitis Dyslipidemia Overweight (BMI 25.0-29.9) History of compression fracture of spine Current Outpatient Medications Medication Sig Dispense Refill oxyCODONE HCl 5 MG Oral Tablet (Oxy IR) Take 1 Tablet by mouth every 8 hours as needed for Pain, Severe. 60 Tablet 0 Calcitonin ([place]) 200 UNIT/ACT Nasal Solution (Fortical) Administer 1 [place] into one nostril in the morning. alternate nostrils.. 3 mL 11 Ozempic (1 MG/DOSE) 2 MG/1.5ML Subcutaneous Solution Pen-injector (Semaglutide (1 MG/DOSE)) Inject 1 mg under the skin once a week. 2 Each 0 Acetaminophen ER 650 MG Oral Tablet Extended Release (Acetaminophen 8 Hour) Take 1 Tablet by mouth every 8 hours as needed. Apixaban 5 MG Oral Tablet (Eliquis) Take 1 Tablet by mouth in the morning and 1 Tablet before bedtime. 60 Tablet 11 Atorvastatin Calcium 40 MG Oral Tablet (Lipitor) Take 1 Tablet by mouth in the morning. 30 Tablet 11 Levothyroxine Sodium 125 MCG Oral Tablet (Levoxyl) Take 1 Tablet by mouth daily first thing in the morning. (at least 30 min prior to breakfast or other meds) 30 Tablet 11 metFORMIN HCl 500 MG Oral Tablet (Glucophage) Take 2 Tablets by mouth 2 times a day with morning and evening meals. 120 Tablet 11 Metoprolol Tartrate 25 MG Oral Tablet (Lopressor) Take 1/2 Tablets by mouth in the morning and 1/2 Tablets before bedtime. 30 Tablet 11 Pantoprazole Sodium 40 MG Oral Tablet Delayed Release (Protonix) Take 1 Tablet by mouth in the morning. 30 Tablet 11 Verapamil HCl 40 MG Oral Tablet (Isoptin) Take 1 Tablet by mouth in the morning and 1 Tablet beforebedtime. 60 Tablet 11 Sertraline HCl 25 MG Oral Tablet (Zoloft) Take 1 Tablet by mouth in the morning. 30 Tablet 11 Aspirin 81 MG Oral Tablet Delayed Release (SB Low Dose ASA EC) Take 1 Tablet by mouth in the morning. 100 Tablet 11 GNP Vitamin B-12 1000 MCG Oral Tablet Extended Release (Cyanocobalamin ER) Take 1 Tablet by mouth in the morning. 60 Tablet 11 Ferrous Sulfate 325 (65 Fe) MG Oral Tablet (Feosol) Take 1 Tablet by mouth daily with breakfast. 30Tablet 11 Vitamin D3 125 MCG (5000 UT) Oral Tablet Take 1 Tablet by mouth in the morning. 100 Tablet 11 Nystatin 513885 UNIT/GM External Powder (Nystop) Apply topically to affected area 3 times a day. Apply to skin fold under stomach 15 g 0 OneTouch Verio In Vitro Strip (Glucose Blood) Use up to 4 times a day E11.9 100 Strip 11 No current facility-administered medications for this visit. Allergy: Review of patient's allergies indicates: Allergen Reactions Penicillins Hives Sulfa Antibiotics Nausea/vomiting OBJECTIVE: There were no vitals taken for this visit. Patient off camera during visit ASSESSMENT AND PLAN: (Z87.81) History of compression fracture of spine (primary encounter diagnosis) Plan: oxyCODONE HCl 5 MG Oral Tablet (Oxy IR), Calcitonin ([place]) 200 UNIT/ACT Nasal Solution (Fortical) (E11.9) Type 2 diabetes mellitus with hemoglobin A1c goal of less than 8.0% (HCC) Plan: stable (I48.11) Longstanding persistent atrial fibrillation (HCC) Plan: stable Follow up as needed. No other complaints were offered at this time. Maged Katz MD documented in this encounter Plan of Treatment Upcoming Encounters Date Type Department Care Team (Late st Contact Info) Description 07/02/2024 1:20 PM EDT Office Visit Pharmacy, [facility] [address] [facility] [place] [address] [facility] [address] [place] [address] 07/07/2024 1:30 PM EDT [address] Radiology, [address] [address] 07/21/2024 10:30 AM EDT Office Visit Ophthalmology, [facility] [address] [facility] [place] [address] Cyrus Shah DO [address] [facility] [place] [address] 09/27/2024 10:00 AM EST Office Visit Cardiology, [facility] [address] [place] [address] Deondre Gordillo DO [address] [place] [address] Health Maintenance Due Date Last Done Comments [...] this encounter Medical Devices Implanted Type Area Keg Varnisher Device Identifier Shelf Expiration Date Model / Serial / Lot Olecranon Plate Implanted:Qty: 1 on 01/02/2024 by Zachary Reese, DO at OR [facility] Left: Elbow [id number] / / Screw Bn T10 Ft St Lk 3.5x18mm - [id number] Implanted:Qty: 2 on 01/02/2024 by Zachary Reese, at OR [facility] Left: Elbow ADILIA : ORTHOPAEDICS [id number] / / Screw Bn T10 Ft [address] Lk 3.5x20mm - [id number] Implanted:Qty: 1 on 01/02/2024 by Zachary Reese, at OR [facility] Left: Elbow ADILIA : ORTHOPAEDICS [id number] / / Screw Cortical 3.5x20 - [id number] Implanted:Qty: 1 on 01/02/2024 by Zachary Reese, DO at OR [facility] Left: Elbow ADILIA : ORTHOPA[employer]ICS [id number] / / Screw Bn T10 [address]t [address] Lk 3.5x50mm - [id number] Implanted:Qty: 1 on 01/02/2024 by Zachary Reese, DO at OR [facility] Left: Elbow ADILIA : ORTHOPAEDICS [id number] / / documented as of this encounter Visit Diagnoses Diagnosis History of compression fracture of spine- Primary Personal history of traumatic fracture Type 2 diabetes mellitus with hemoglobin A1c goal of less than 8.0% (HCC) Longstanding persistent atrial fibrillation (HCC) documented in this encounter Advance Directives * Full Code (Latest Code Status on File) Date Activated Date Inactivated Comments 01/02/2024 11:34 AM 01/02/2024 5:05 PM This order reflects the patients wishes and were consensually agreed upon. Question Answer Comments Discussion of Advance Direct sil occurred with: Not Discussed due to patient's condition Care Teams Babysitter Relationship Specialty Start Date End Date Maged Katz MD [address] [address] PCP - General Family Medicine 03/26/24 documented as of this encounter
--- NOTE | 2024-07-18 22:58 | Emergency Department Note ---
History of Present Illness General Chief complaint: Confusion Stated complaint: COMPRESSION FRAC/BACK, STROKE/DEC, CONFUSED Time Seen by Provider: 07/18/24 22:47 History of Present Illness Maximum Pain Intensity: 10 This 74-year-old female with dementia presents ER for increasing confusion with nausea and feeling sick for the past several days. The daughter states she tried to put her to bed and was dry heaving and was concerned and brought her in. Patient and family deny chest pain, dyspnea, urinary symptoms, diarrhea, localized abdominal pain. Patient is able to follow commands. She knows her name and her daughter's name. Home Medications Medication Instructions Recorded Confirmed Type apixaban 5 mg tablet (Eliquis) 5 mg PO AMHS 12/13/23 07/19/24 History lorazepam 0.5 mg tablet (Ativan) 0.5 mg PO Q8 PRN Anxiety 12/13/23 07/19/24 History metformin 500 mg tablet 1,000 mg PO BIDM 12/13/23 07/19/24 History pantoprazole 40 mg tablet,delayed 40 mg PO QAM 12/13/23 07/19/24 History release semaglutide 1 mg/dose (4 mg/3 mL) 1 mg subcut WK 12/13/23 07/19/24 History subcutaneous pen injector (Ozempic) aspirin 81 mg tablet,delayed 81 mg PO QAM 02/01/24 07/19/24 History release atorvastatin 40 mg tablet 40 mg PO QAM 02/01/24 07/19/24 History levothyroxine 125 mcg tablet 125 mcg PO DAILYBB 02/01/24 07/19/24 History metoprolol tartrate 25 mg tablet 12.5 mg PO AMHS 02/01/24 07/19/24 History cholecalciferol (vitamin D3) 125 125 mcg PO QAM #30 tabs 02/06/24 07/19/24 Rx mcg (5,000 unit) tablet ferrous sulfate 325 mg (65 mg 325 mg PO QAM #30 tabs 02/06/24 07/19/24 Rx iron) tablet,delayed release verapamil 40 mg tablet 40 mg PO AMHS #60 tabs 02/06/24 07/19/24 Rx acetaminophen 650 mg 650 mg PO TID ud 03/11/24 07/19/24 History tablet,extended release cyanocobalamin (vitamin B-12) 1,000 mcg PO QAM 03/11/24 07/19/24 History 1,000 mcg tablet,extended release (Vitamin B-12 ER) sertraline 25 mg tablet 25 mg PO QAM 03/11/24 07/19/24 History lidocaine 4 % topical patch 1 patch topical DAILY #15 ea 03/16/24 07/19/24 Rx calcitonin (salmon) 200 1 spray intranasal (ALT) QAM 07/19/24 07/19/24 History unit/actuation nasal spray nystatin 100,000 unit/gram topical 1 applic topical BID 07/19/24 07/19/24 History powder oxycodone 5 mg tablet 5 mg PO TID pain 07/19/24 07/19/24 History Allergies Allergy/AdvReac Type Severity Reaction Status Date / Time Penicillins Allergy Intermediate Hives Verified 07/19/24 00:26 Sulfa (Sulfonamide AdvReac Severe SEVERE Verified 07/19/24 00:26 Antibiotics) NAUSEA Past Med/Surg History Problem List (Updated 07/19/24 @ 00:56 by Kacie Williamson PA-C) Acute confusion (Acute) Weakness (Acute) Symptomatic anemia (Acute) Hypomagnesemia (Acute) Compression fracture of lumbosacral spine (Acute) Lightheadedness GERD (gastroesophageal reflux disease) Persistent atrial fibrillation Vascular dementia Hypothyroidism (Acute) History of stroke Medical History Acute UTI History of breast cancer Surgical History Hx of cholecystectomy H/O section H/O gastric bypass Left ulnar fracture s/p surgical repair 01/02/24 at [facility] Family History Other Breast cancer Diabetes Hypertension Social History Smoking Status: Never smoker Hx Alcohol Use: No Hx Substance Use: No Preferred Language: Mohawk Communication Ability: Effective Varnisher Required: No Beliefs That Will Affect Care: None Current Living Situation: Alone Current Living Situation Comment: Lives alone with cat, daughter lives across the street Feels Safe at Home: Yes Assistive Devices: Brace/Splint/Immobilizer, Cane and Walker Review of Systems A total of 10 systems reviewed and were otherwise negative Physical Exam Vital Signs Vital Signs - 24 hr 07/18/24 22:40 07/18/24 23:02 07/18/24 23:29 Temperature 36.3 C L Temperature Source Temporal Artery Scan Pulse Rate 69 81 Pulse Rate [Apical] Respiratory Rate 18 Respiratory Effort / Characteristics Respiratory Depth Respiratory Pattern Blood Pressure 103/54 L Blood Pressure [Left Arm] Blood Pressure Mean 70 Blood Pressure Mean [Left Arm] Pulse Oximetry 97 93 Oxygen Delivery Method Room Air Room Air Sepsis Recent Fever Within 48 Hours No Sepsis New/Unexplained Change in Mental Status N/A Sepsis Action Taken by Nursing No Action Required 07/18/24 23:40 07/19/24 01:18 07/19/24 01:22 Temperature 36.7 C Temperature Source Oral Pulse Rate 73 Pulse Rate [Apical] 74 77 Respiratory Rate 18 16 14 Respiratory Effort / Characteristics Non-Labored Spontaneous Respiratory Depth Normal Respiratory Pattern Regular Blood Pressure 136/81 Blood Pressure [Left Arm] 129/64 136/61 Blood Pressure Mean 99 Blood Pressure Mean [Left Arm] 85 86 Pulse Oximetry 100 99 100 Oxygen Delivery Method Room Air Sepsis Recent Fever Within 48 Hours Sepsis New/Unexplained Change in Mental Status Sepsis Action Taken by Nursing 07/19/24 01:37 07/19/24 01:51 07/19/24 01:52 Temperature 36.9 C 36.6 C Temperature Source Oral Oral Pulse Rate 78 79 79 Pulse Rate [Apical] Respiratory Rate 16 14 14 Respiratory Effort / Characteristics Respiratory Depth Respiratory Pattern Blood Pressure 137/68 148/74 H 148/74 H Blood Pressure [Left Arm] Blood Pressure Mean 91 98 98 Blood Pressure Mean [Left Arm] Pulse Oximetry 100 99 99 Oxygen Delivery Method Sepsis Recent Fever Within 48 Hours Sepsis New/Unexplained Change in Mental Status Sepsis Action Taken by Nursing 07/19/24 02:22 Temperature 36.7 C Temperature Source Oral Pulse Rate 79 Pulse Rate [Apical] Respiratory Rate 14 Respiratory Effort / Characteristics Respiratory Depth Respiratory Pattern Blood Pressure 134/71 Blood Pressure [Left Arm] Blood Pressure Mean 92 Blood Pressure Mean [Left Arm] Pulse Oximetry 100 Oxygen Delivery Method Sepsis Recent Fever Within 48 Hours Sepsis New/Unexplained Change in Mental Status Sepsis Action Taken by Nursing VITALS: Vitals are noted on the nurse's note and reviewed by myself. Vital signs stable. GENERAL: Pleasant elderly female following commands, in no acute distress, nondiaphoretic, well-developed well-nourished. SKIN: The skin was without rashes, erythema, edema, or bruising. There is no tenting of the skin. Capillary reflex less than 2 seconds. HEAD: Normocephalic atraumatic. EARS: External auditory canals clear EYES: Pupils equal round and reactive to light and accommodation. Conjunctivae without injection, sclerae without icterus. Extraocular movements intact. NOSE: Patent, no discharge. MOUTH: Mucous membranes moist. Pharynx without erythema or exudate. Uvula midline. Airway patent. Tongue does not deviate. NECK: Supple without nuchal rigidity. No lymphadenopathy. No thyromegaly. Cervical spine is nontender. No JVD. HEART: Regular rate and rhythm LUNGS: Clear to auscultation bilaterally without wheezes, rales or rhonchi. No retractions or accessory muscle use. ABDOMEN: Positive bowel sounds x 4. Normal tympanic percussion. Soft, nontender, without masses or organomegaly. Quiroz sign negative. No guarding or rebound tenderness. No CVA tenderness Rectal exam: Black stool guaiac positive. Nursing present. MUSCULOSKELETAL: No muscle atrophy, erythema, or edema noted. NEURO: Patient was alert and oriented to person place Normal sensation to light and sharp touch. No focal neurological deficits. Course Administered Medications Acetaminophen (Acetaminophen 325 Mg Tab) 650 mg PO QID PRN PRN Reason: pain/fever Stop: 08/18/24 02:07 Last Admin: 07/19/24 02:23 Dose: 650 mg Documented By: SARY Lactated Ringer's (Lr) 1,000 mls @ 100 mls/hr IV .Q10H ONE Stop: 07/19/24 11:26 Last Admin: 07/19/24 01:53 Dose: 100 mls/hr Documented By: SARY Discontinued Medications Sodium Chloride (Nss) 500 mls @ 999 mls/hr IV .Q31M [facility] Stop: 07/18/24 23:30 Last Infusion: 07/18/24 23:48 Dose: Infused Documented By: Admin: 07/18/24 23:25 Dose: 999 mls/hr Documented By: SARY Pantoprazole Sodium 80 mg/ (Dextrose) 120 mls @ 480 mls/hr IV ONE STA Stop: 07/18/24 23:27 Last Infusion: 07/19/24 00:05 Dose: Infused Documented By: Admin: 07/18/24 23:45 Dose: 480 mls/hr Documented By: SARY Famotidine (Pepcid 20mg Iv Push) 20 mg in 5 mls @ 2.5 mls/min IV NOW STA Stop: 07/18/24 23:14 Last Admin: 07/18/24 23:28 Dose: 2.5 mls/min Documented By: SARY Sodium Chloride (Nss) 1,000 mls @ 999 mls/hr IV .Q1H1M ONE Stop: 07/19/24 00:38 Last Infusion: 07/19/24 00:32 Dose: Infused Documented By: Admin: 07/18/24 23:43 Dose: 999 mls/hr Documented By: SARY Ceftriaxone Sodium (Rocephin) 2,000 mg in 50 mls @ 100 mls/hr IV NOW STA Stop: 07/19/24 01:44 Last Infusion: 07/19/24 02:15 Dose: Infused Documented By: Admin: 07/19/24 01:47 Dose: 100 mls/hr Documented By: SARY Cefepime HCl (Maxipime) 2,000 mg in 20 mls @ 5 mls/min IV NOW STA; Protocol Stop: 07/19/24 01:38 Last Admin: 07/19/24 02:25 Dose: 5 mls/min Documented By: SARY Ioversol (Optiray 320 100ml) 94 ml IV ONCE ONE Stop: 07/19/24 00:24 Last Admin: 07/19/24 00:24 Dose: 94 ml Documented By: WYATT Ondansetron HCl (Ondansetron Inj 2 Mg/Ml 2 Ml Vial) 4 mg IV NOW STA Stop: 07/18/24 22:54 Last Admin: 07/18/24 23:26 Dose: 4 mg Documented By: SARY Critical Care Time Critical Care Time: Yes Total Critical Care Time: 35 I have personally spent 35 minutes of critical care time in the direct management of this patient. This includes bedside care, interpretation of diagnostic studies, and testing, discussion with consultants, patient, and family members, and other required patient management activities. This 35 minutes is in excess of all separately billable procedures. Medical Decision Making Medical Records Attestation: I reviewed the patient's medical records. Home Medications Current Medication List: was personally reviewed by me Laboratory Data Attestation: I reviewed the patient's lab results. 07/18/24 23:04 07/18/24 23:04 Lab Results 07/18/24 07/18/24 07/18/24 Range/Units 23:04 23:12 23:16 WBC 16.75 H (4.8-10.8) K/ul RBC 1.94 L (4.20-5.40) M/uL Hgb 5.3 L* (12.0-16.0) g/dl POC Hgb 5.8 L* (12.0-16.0) g/dl Hct 18.5 L* (37.0-47.0) % POC Hct 17 L* (37-47) % MCV 95.4 (80.0-100.0) fL MCH 27.3 (25.0-34.0) pg MCHC 28.6 L (32.0-36.0) g/dL RDW Std Deviation 61.0 H (36.4-46.3) fL RDW Coeff of Valentina 18.2 H (11.5-14.5) % Plt Count 175 (130-400) K/uL MPV 11.4 (9.4-12.4) fL Immature Gran % (Auto) 0.5 % Neut % (Auto) 82.4 % Lymph % (Auto) 9.3 % Jenkins % (Auto) 7.1 % Eos % (Auto) 0.2 % Baso % (Auto) 0.5 % Neut # (Auto) 13.81 H (1.40-6.50) K/uL Lymph # (Auto) 1.55 (1.20-3.40) K/uL Jenkins # (Auto) 1.19 H (0.11-0.59) K/uL Eos # (Auto) 0.03 (0.00-0.50) K/uL Baso # (Auto) 0.08 (0.00-0.20) K/uL Immature Gran # (Auto) 0.09 (0.01-0.20) K/uL Polychromasia 2+ POC Sodium 135 (135-144) mmol/L Sodium 134 L (136-145) mmol/L POC Potassium 4.3 (3.3-5.0) mmol/L Potassium 4.2 (3.5-5.1) mmol/L POC Chloride 104 (101-112) mmol/L Chloride 103 (98-107) mmol/L Carbon Dioxide 17 L (21-32) mmol/L POC Total CO2 15 L (24-31) mmol/L Anion Gap 14 H (3-11) POC Anion Gap 22.0 (16-25) mmol/L POC BUN 23 H (7-18) mg/dl BUN 24 H (6-23) mg/dl Creatinine 0.86 (0.6-1.2) mg/dl POC Creatinine 0.9 (0.6-1.3) mg/dl Est Cr Clr Drug Dosing 46.8 ml/min Est GFR ( Amer) 76.6 ml/min Est GFR (Non-Af Amer) 66.1 ml/min BUN/Creatinine Ratio 27.9 H (10-20) Glucose 172 H (70-99(Fasting)) mg/dl POC Glucose (other) 171 H (70-99) mg/dl Lactate 8.2 H* (0.4-2.0) mmol/L Calcium 8.7 (8.6-10.3) mg/dl POC Ioniz Calcium Edward 1.18 (1.12-1.32) mmol/l Magnesium 1.0 L (1.7-2.4) mg/dl Total Bilirubin 0.4 (0.2-1.0) mg/dl AST 14 (13-39) U/L ALT 10 (7-52) U/L Alkaline Phosphatase 46 (34-104) U/L Total Creatine Kinase 41 (26-192) U/L Troponin I High Sens 7.9 (0-14) pg/ml Total Protein 5.9 L (6.0-8.3) gm/dl Albumin 3.7 (3.4-5.0) gm/dl Globulin 2.2 L (2.5-4.0) gm/dl Albumin/Globulin Ratio 1.7 (0.9-2) Procalcitonin (0-0.5) ng/ml TSH 41.701 H (0.300-4.500) uIu/ml Free T4 0.68 (0.61-1.60) ng/dl Urine Color Yellow Urine Appearance Cloudy A (Clear) Urine pH 5.0 (4.5-7.5) Ur Specific Granby 1.027 (1.000-1.030) Urine Protein Trace H (Negative) Urine Glucose (UA) Negative (Negative) Urine Ketones Trace H (Negative) Urine Blood Negative (Negative) Urine Nitrite Negative (Negative) Urine Bilirubin Negative (Negative) Urine Urobilinogen Negative (Negative) Ur Leukocyte Esterase 3+ H (Negative) Urine WBC (Auto) >50 H (0-5) /hpf Urine RBC (Auto) 0-2 (0-2) /hpf U Hyaline Cast (Auto) 11-20 H (0-2) /lpf U Epithel Cells (Auto) 6-10 H (0-2) /hpf Urine Bacteria (Auto) 2+ H (None Seen) Adenovirus (PCR) Not Detected (NotDetected) B. pertussis DNA (PCR) Not Detected (NotDetected) B.parapertussis DNA PCR Not Detected (NotDetected) C. pneumoniae DNA (PCR) Not Detected (NotDetected) Coronavirus OC43 (PCR) Not Detected (NotDetected) Coronavirus HKU1 (PCR) Not Detected (NotDetected) Coronavirus 229E (PCR) Not Detected (NotDetected) SARS-CoV-2 (PCR) Not Detected (NotDetected) Coronavirus NL63 (PCR) Not Detected (NotDetected) Human Metapneumovir PCR Not Detected (NotDetected) Influenza Type A (PCR) Not Detected (NotDetected) Influenza Type B (PCR) Not Detected (NotDetected) M. pneumoniae (PCR) Not Detected (NotDetected) Parainfluenza 1 (PCR) Not Detected (NotDetected) Parainfluenza 2 (PCR) Not Detected (NotDetected) Parainfluenza 3 (PCR) Not Detected (NotDetected) Parainfluenza 4 (PCR) Not Detected (NotDetected) RSV (PCR) Not Detected (NotDetected) Entero/Rhino (PCR) Not Detected (NotDetected) Blood Type Blood Type Recheck Antibody Screen Crossmatch 07/18/24 07/18/24 07/18/24 Range/Units 23:21 23:38 23:55 WBC (4.8-10.8) K/ul RBC (4.20-5.40) M/uL Hgb (12.0-16.0) g/dl POC Hgb (12.0-16.0) g/dl Hct (37.0-47.0) % POC Hct (37-47) % MCV (80.0-100.0) fL MCH (25.0-34.0) pg MCHC (32.0-36.0) g/dL RDW Std Deviation (36.4-46.3) fL RDW Coeff of Valentina (11.5-14.5) % Plt Count (130-400) K/uL MPV (9.4-12.4) fL Immature Gran % (Auto) % Neut % (Auto) % Lymph % (Auto) % Jenkins % (Auto) % Eos % (Auto) % Baso % (Auto) % Neut # (Auto) (1.40-6.50) K/uL Lymph # (Auto) (1.20-3.40) K/uL Jenkins # (Auto) (0.11-0.59) K/uL Eos # (Auto) (0.00-0.50) K/uL Baso # (Auto) (0.00-0.20) K/uL Immature Gran # (Auto) (0.01-0.20) K/uL Polychromasia POC Sodium (135-144) mmol/L Sodium (136-145) mmol/L POC Potassium (3.3-5.0) mmol/L Potassium (3.5-5.1) mmol/L POC Chloride (101-112) mmol/L Chloride (98-107) mmol/L Carbon Dioxide (21-32) mmol/L POC Total CO2 (24-31) mmol/L Anion Gap (3-11) POC Anion Gap (16-25) mmol/L POC BUN (7-18) mg/dl BUN (6-23) mg/dl Creatinine (0.6-1.2) mg/dl POC Creatinine (0.6-1.3) mg/dl Est Cr Clr Drug Dosing ml/min Est GFR ( Amer) ml/min Est GFR (Non-Af Amer) ml/min BUN/Creatinine Ratio (10-20) Glucose (70-99(Fasting)) mg/dl POC Glucose (other) (70-99) mg/dl Lactate (0.4-2.0) mmol/L Calcium (8.6-10.3) mg/dl POC Ioniz Calcium Edward (1.12-1.32) mmol/l Magnesium (1.7-2.4) mg/dl Total Bilirubin (0.2-1.0) mg/dl AST (13-39) U/L ALT (7-52) U/L Alkaline Phosphatase (34-104) U/L Total Creatine Kinase (26-192) U/L Troponin I High Sens (0-14) pg/ml Total Protein (6.0-8.3) gm/dl Albumin (3.4-5.0) gm/dl Globulin (2.5-4.0) gm/dl Albumin/Globulin Ratio (0.9-2) Procalcitonin 0.06 (0-0.5) ng/ml TSH (0.300-4.500) uIu/ml Free T4 (0.61-1.60) ng/dl Urine Color Urine Appearance (Clear) Urine pH (4.5-7.5) Ur Specific Granby (1.000-1.030) Urine Protein (Negative) Urine Glucose (UA) (Negative) Urine Ketones (Negative) Urine Blood (Negative) Urine Nitrite (Negative) Urine Bilirubin (Negative) Urine Urobilinogen (Negative) Ur Leukocyte Esterase (Negative) Urine WBC (Auto) (0-5) /hpf Urine RBC (Auto) (0-2) /hpf U Hyaline Cast (Auto) (0-2) /lpf U Epithel Cells (Auto) (0-2) /hpf Urine Bacteria (Auto) (None Seen) Adenovirus (PCR) (NotDetected) B. pertussis DNA (PCR) (NotDetected) B.parapertussis DNA PCR (NotDetected) C. pneumoniae DNA (PCR) (NotDetected) Coronavirus OC43 (PCR) (NotDetected) Coronavirus HKU1 (PCR) (NotDetected) Coronavirus 229E (PCR) (NotDetected) SARS-CoV-2 (PCR) (NotDetected) Coronavirus NL63 (PCR) (NotDetected) Human Metapneumovir PCR (NotDetected) Influenza Type A (PCR) (NotDetected) Influenza Type B (PCR) (NotDetected) M. pneumoniae (PCR) (NotDetected) Parainfluenza 1 (PCR) (NotDetected) Parainfluenza 2 (PCR) (NotDetected) Parainfluenza 3 (PCR) (NotDetected) Parainfluenza 4 (PCR) (NotDetected) RSV (PCR) (NotDetected) Entero/Rhino (PCR) (NotDetected) Blood Type O Positive Blood Type Recheck O Positive Antibody Screen NEGATIVE Crossmatch See Detail 07/19/24 Range/Units 01:02 WBC (4.8-10.8) K/ul RBC (4.20-5.40) M/uL Hgb (12.0-16.0) g/dl POC Hgb (12.0-16.0) g/dl Hct (37.0-47.0) % POC Hct (37-47) % MCV (80.0-100.0) fL MCH (25.0-34.0) pg MCHC (32.0-36.0) g/dL RDW Std Deviation (36.4-46.3) fL RDW Coeff of Valentina (11.5-14.5) % Plt Count (130-400) K/uL MPV (9.4-12.4) fL Immature Gran % (Auto) % Neut % (Auto) % Lymph % (Auto) % Jenkins % (Auto) % Eos % (Auto) % Baso % (Auto) % Neut # (Auto) (1.40-6.50) K/uL Lymph # (Auto) (1.20-3.40) K/uL Jenkins # (Auto) (0.11-0.59) K/uL Eos # (Auto) (0.00-0.50) K/uL Baso # (Auto) (0.00-0.20) K/uL Immature Gran # (Auto) (0.01-0.20) K/uL Polychromasia POC Sodium (135-144) mmol/L Sodium (136-145) mmol/L POC Potassium (3.3-5.0) mmol/L Potassium (3.5-5.1) mmol/L POC Chloride (101-112) mmol/L Chloride (98-107) mmol/L Carbon Dioxide (21-32) mmol/L POC Total CO2 (24-31) mmol/L Anion Gap (3-11) POC Anion Gap (16-25) mmol/L POC BUN (7-18) mg/dl BUN (6-23) mg/dl Creatinine (0.6-1.2) mg/dl POC Creatinine (0.6-1.3) mg/dl Est Cr Clr Drug Dosing ml/min Est GFR ( Amer) ml/min Est GFR (Non-Af Amer) ml/min BUN/Creatinine Ratio (10-20) Glucose (70-99(Fasting)) mg/dl POC Glucose (other) (70-99) mg/dl Lactate 5.8 H* (0.4-2.0) mmol/L Calcium (8.6-10.3) mg/dl POC Ioniz Calcium Edward (1.12-1.32) mmol/l Magnesium (1.7-2.4) mg/dl Total Bilirubin (0.2-1.0) mg/dl AST (13-39) U/L ALT (7-52) U/L Alkaline Phosphatase (34-104) U/L Total Creatine Kinase (26-192) U/L Troponin I High Sens (0-14) pg/ml Total Protein (6.0-8.3) gm/dl Albumin (3.4-5.0) gm/dl Globulin (2.5-4.0) gm/dl Albumin/Globulin Ratio (0.9-2) Procalcitonin (0-0.5) ng/ml TSH (0.300-4.500) uIu/ml Free T4 (0.61-1.60) ng/dl Urine Color Urine Appearance (Clear) Urine pH (4.5-7.5) Ur Specific Granby (1.000-1.030) Urine Protein (Negative) Urine Glucose (UA) (Negative) Urine Ketones (Negative) Urine Blood (Negative) Urine Nitrite (Negative) Urine Bilirubin (Negative) Urine Urobilinogen (Negative) Ur Leukocyte Esterase (Negative) Urine WBC (Auto) (0-5) /hpf Urine RBC (Auto) (0-2) /hpf U Hyaline Cast (Auto) (0-2) /lpf U Epithel Cells (Auto) (0-2) /hpf Urine Bacteria (Auto) (None Seen) Adenovirus (PCR) (NotDetected) B. pertussis DNA (PCR) (NotDetected) B.parapertussis DNA PCR (NotDetected) C. pneumoniae DNA (PCR) (NotDetected) Coronavirus OC43 (PCR) (NotDetected) Coronavirus HKU1 (PCR) (NotDetected) Coronavirus 229E (PCR) (NotDetected) SARS-CoV-2 (PCR) (NotDetected) Coronavirus NL63 (PCR) (NotDetected) Human Metapneumovir PCR (NotDetected) Influenza Type A (PCR) (NotDetected) Influenza Type B (PCR) (NotDetected) M. pneumoniae (PCR) (NotDetected) Parainfluenza 1 (PCR) (NotDetected) Parainfluenza 2 (PCR) (NotDetected) Parainfluenza 3 (PCR) (NotDetected) Parainfluenza 4 (PCR) (NotDetected) RSV (PCR) (NotDetected) Entero/Rhino (PCR) (NotDetected) Blood Type Blood Type Recheck Antibody Screen Crossmatch Imaging Data Attestation: I personally reviewed and interpreted this imaging study as follows: Radiologist's Impression: Head CT 07/18/24 22:54 Exam(s): CT HEAD Without Contrast EXAM: CT Head Without Intravenous Contrast CLINICAL HISTORY: AMS. TECHNIQUE: Axial computed tomography images of the head/brain without intravenous contrast. CTDI is 37.32 mGy and DLP is 1772.84 mGy-cm. Automated exposure control was utilized for the study. A dose lowering technique was utilized adhering to the principles of ALARA. COMPARISON: CT head without contrast dated 12/13/2023 FINDINGS: Brain: No intracranial hemorrhage. No significant mass effect. No evidence for cortical infarct. Underlying parenchymal involutional changes and mild periventricular deep white matter hypodense changes, stable. Ventricles: Unremarkable. No ventriculomegaly. Bones/joints: Unremarkable. No acute fracture. Soft tissues: Unremarkable. Vasculature: Similar prominent atherosclerotic calcification of the cavernous and supraclinoid internal carotid arteries and the distal vertebral arteries. Sinuses: Unremarkable as visualized. No acute sinusitis. Mastoid air cells: Unremarkable as visualized. No mastoid effusion. IMPRESSION: No acute intracranial process or significant alteration from the prior examination. Chronic underlying presumed age-related findings, as noted above, not significantly altered. Electronically signed by: Gamal Jackson MD 07/19/24 00:39 AM Abdomen/Pelvis CT 07/18/24 23:13 Exam(s): CT ABDOMEN + PELVIS With Contrast IV Amt: 94 ml opti 320 EXAM: CT Abdomen and Pelvis With Intravenous Contrast CLINICAL HISTORY: nausea, GI bleed. TECHNIQUE: Axial computed tomography images of the abdomen and pelvis with intravenous contrast. CTDI is 37.32 mGy and DLP is 1772.84 mGy-cm. Automated exposure control was utilized for the study. A dose lowering technique was utilized adhering to the principles of ALARA. CONTRAST: Patient received 94 ml opti 320 of IV contrast COMPARISON: No relevant prior studies available. FINDINGS: Limitations: There is respiratory artifact, which degrades image quality on multiple image slices. Lung bases: Unremarkable. No mass. No consolidation. Mediastinum: A small hiatal hernia is noted. 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 The excluded stomach is at least moderately fluid distended. No significant mucosal thickening. However, there appears to be slight hyperenhancement of the excluded stomach. ABDOMEN: Liver: Unremarkable. No mass. Gallbladder and bile ducts: Cholecystectomy. Common bile duct is prominent measuring 13 cm in diameter. No common bile duct stone is seen. Pancreas: Unremarkable. No mass. No ductal dilation. Spleen: Unremarkable. No splenomegaly. Adrenals: Unremarkable. No mass. Kidneys and ureters: Unremarkable. No solid mass. No hydronephrosis. Stomach and bowel: No evidence for focal high-grade bowel obstruction. There is abnormal retained material in nondilated small bowel loops in the inferior abdomen and pelvis. Mild stool burden. Diverticulosis in the distal rectosigmoid colon without definitive focal diverticulitis. PELVIS: Appendix: No findings to suggest acute appendicitis. Bladder: Unremarkable. No mass. Reproductive: Unremarkable as visualized. ABDOMEN and PELVIS: Intraperitoneal space: Unremarkable. No free air. No significant fluid collection. Bones/joints: Compression fractures noted throughout the included thoracolumbar spine with sparing of only L1 level. There is a fracture line noted involving the inferior endplate at T12 level with loss of height centrally, estimated at 70% loss of height centrally. There is sclerosis adjacent to the superior endplate and mild buckling of the posterior cortex. No involvement of pedicles or posterior elements. Multilevel degenerative changes throughout the thoracolumbar spine. Facet hypertrophic changes noted inferiorly. No dislocation. Soft tissues: Mild kidneys edema throughout the superficial soft tissues of the abdomen and pelvis. Vasculature: Unremarkable. No abdominal aortic aneurysm. Lymph nodes: Unremarkable. No enlarged lymph nodes. IMPRESSION: 1. A small hiatal hernia is noted. 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 The excluded stomach is at least moderately fluid distended. No significant mucosal thickening. However, there appears to be slight hyperenhancement of the excluded stomach. Subtle gastritis may be present. 2. No evidence for focal high-grade bowel obstruction. There is abnormal retained material in nondilated small bowel loops in the inferior abdomen and pelvis. Findings suggest enteritis with delayed transit through the small bowel. 3. Mild stool burden. Diverticulosis in the distal rectosigmoid colon without definitive focal diverticulitis. No free intraperitoneal fluid or definite pneumoperitoneum. 4. Compression fractures noted throughout the included thoracolumbar spine with sparing of only L1 level. There is a fracture line noted involving the inferior endplate at T12 level with loss of height centrally, estimated at 70% loss of height centrally. There is sclerosis adjacent to the superior endplate and mild buckling of the posterior cortex. No involvement of pedicles or posterior elements. Findings are consistent with an acute to subacute process. The remaining compression fractures throughout the visualized spine are age indeterminant. 5. Mild kidneys edema throughout the superficial soft tissues of the abdomen and pelvis. Findings suggest mild positive fluid status. 6. Common bile duct is prominent measuring 13 cm in diameter. This is likely related to cholecystectomy. Electronically signed by: Gamal Jackson MD 07/19/24 00:54 AM MDM Narrative Prior records/ancillary studies reviewed and summarized above. Nursing notes reviewed. Additional history obtained from family The patient's history was concerning for increased confusion with nausea. Differential diagnosis: Etiologies such as metabolic, infection, hypo/hyperglycemia, electrolyte abnormalities, cardiac sources, intracerebral event, toxicologic, neurologic, as well as others were entertained. Physical examination: As above. ER treatment provided: IV Lock An order was placed for continuous cardiac monitoring. The monitor shows a rate of 60-100 with a sinus rhythm per my interpretation. IV fluids, Zofran, Protonix, Pepcid, patient was typed and screened and crossmatched for 1 unit. She was consented. Rocephin was ordered for UTI On reassessment the patient felt better. Diagnostics interpretation by me: ECG: Ordered for weakness EKG: Normal sinus, occasional PVC, no acute ST-T wave changes, rate of 77. Impression normal sinus rhythm with occasional PVC independently interpreted by myself The labs Independently Interpreted by myself revealed severe anemia and patient was typed and crossmatch for blood. She was consented Elevated TSH and T4 was ordered. Elevated lactic and repeat was improved. Normal procalcitonin, negative BioFire Urine concerning for infection sent for culture Imaging studies: Chest x-ray with no acute consolidation, pneumothorax or free air per my independent interpretation CTs were reviewed and read by radiology as above Consultation: A consultation was placed with the hospitalist. The case was discussed and diagnostics were reviewed. The patient was evaluated in the ER for further treatment. Exam and history seem consistent with symptomatic anemia with elevated TSH. Patient was given blood. She was medicated as above. Hemoccult was positive. Medicine was consulted and the case is discussed. Patient will be admitted to the medical service. By the evaluation outlined above emergent etiologies such as infection, electrolyte abnormalities, cardiac sources, intracerebral event, toxologic, neurologic, abnormalities blood glucose, metabolic, as well as others were deemed relatively unlikely. The pt informed about the findings as listed above. All questions were answered and pleased with the treatment. The chart was completed utilizing [employer] Speech voice recognition software. Grammatical errors, random word insertions, pronoun errors, and incomplete sentences are an occassional consequence of this system due to software limitations, ambient noise, and hardware issues. Any formal questions or concerns about the content, text, or information contained within the body of this dictation should be directly addressed to the physician assistant store manager operations for clarification. Impression & Plan Symptomatic anemia, Weakness, Acute confusion, Hypothyroidism Discharge Plan Visit Data Chief Complaint: Confusion Stated Complaint: COMPRESSION FRAC/BACK, STROKE/DEC, CONFUSED ED Provider: Kendy Reynolds ED Midlevel Provider: Kacie Williamson Discharge Problem: Symptomatic anemia, Weakness, Acute confusion, Hypothyroidism Patient Disposition: Admitted As Inpatient Condition: Fair Forms Stand Alone Forms: My [facility] [employer] Prescriptions Prescriptions: No Action atorvastatin 40 mg tablet 40 mg PO QAM levothyroxine 125 mcg tablet 125 mcg PO DAILYBB aspirin 81 mg Tablet,Delayed Release (Dr/Ec) 81 mg PO QAM metoprolol tartrate 25 mg tablet 12.5 mg PO AMHS Rx Instructions: 1/2 tablet dose oxycodone 5 mg tablet 5 mg PO TID Rx Instructions: takes with tylenol...ordered prn but family was instructed by [facility] case coordinator for Dr. Katz to give it 3 times a day for control calcitonin (salmon) 200 unit/actuation spray,non-aerosol 1 spray intranasal (ALT) QAM nystatin 100,000 unit/gram powder 1 applic TOPICAL BID Rx Instructions: apply to abdominal folds metformin 500 mg Tablet 1,000 mg PO BIDM lorazepam [Ativan] 0.5 mg Tablet 0.5 mg PO Q8 PRN (Reason: Anxiety) Rx Instructions: not using pantoprazole 40 mg Tablet,Delayed Release (Dr/Ec) 40 mg PO QAM Eliquis 5 mg Tablet 5 mg PO AMHS Ozempic 1 mg/dose (4 mg/3 mL) Pen Injector 1 mg SUBCUT WK Rx Instructions: MONDAYS ferrous sulfate 325 mg (65 mg iron) Tablet,Delayed Release (Dr/Ec) 325 mg PO QAM Qty: 30 1RF verapamil 40 mg Tablet 40 mg PO AMHS Qty: 60 0RF cholecalciferol (vitamin D3) 125 mcg (5,000 unit) Tablet 125 mcg PO QAM Qty: 30 0RF cyanocobalamin (vitamin B-12) [Vitamin B-12] 1,000 mcg Tablet Extended Release 1,000 mcg PO QAM sertraline 25 mg tablet 25 mg PO QAM acetaminophen 650 mg Tablet Extended Release 650 mg PO TID Rx Instructions: give with oxycodone lidocaine 4 % adhesive patch,medicated 1 patch topical DAILY Qty: 15 0RF Rx Instructions: may leave on for up to 12 hrs Referrals Referrals: Maged Katz MD [Primary Care Provider] -
[2024-07-18] MEDS ORDERED: SODIUM CHLORIDE 0.9% 250 ML IV PRN (23:13)
[2024-07-18] MEDS: SODIUM CHLORIDE 0.9% 500 ML IV SCH (23:25)
[2024-07-18] MEDS: ONDANSETRON INJ 2 MG/ML 2 ML VIAL IV STA (23:26)
[2024-07-18] MEDS: FAMOTIDINE 20MG IV PUSH 20 MG/5 ML SYR IV STA (23:28)
[2024-07-18] MEDS: SODIUM CHLORIDE 0.9% 1,000 ML IV ONE (23:43)
[2024-07-18] MEDS: PANTOprazole 80 MG in DEXTROSE 5% 100 ML IV STA (23:45)
[2024-07-18 23:48] LABS: Hematocrit (blood only) 18.5 % (37.0-47.0); Hemoglobin 5.3 g/dl (12.0-16.0); Mean Corpuscular Hemoglobin 27.3 pg (25.0-34.0); Mean Corpuscular Hgb Conc 28.6 g/dL (32.0-36.0); Mean Corpuscular Volume 95.4 fL (80.0-100.0); Mean Platelet Volume 11.4 fL (9.4-12.4); Platelet Count 175 K/uL (130-400); RDW Coefficient of Variation 18.2 % (11.5-14.5); Red Blood Count 1.94 M/uL (4.20-5.40); White Blood Count 16.75 K/ul (4.8-10.8)
[2024-07-18 23:53] LABS: Albumin Globulin Ratio 1.7 (0.9-2); Albumin Level 3.7 gm/dl (3.4-5.0); BUN Creatinine Ratio 27.9 (10-20); Bilirubin,Total 0.4 mg/dl (0.2-1.0); Calcium 8.7 mg/dl (8.6-10.3); Creatinine Clr Calc Pharmacy 46.8 ml/min; Est GFR (African American) 76.6 ml/min; Est GFR (Non-African American) 66.1 ml/min; Globulin 2.2 gm/dl (2.5-4.0); Potassium 4.2 mmol/L (3.5-5.1); Total Protein 5.9 gm/dl (6.0-8.3)
[2024-07-19 00:01] LABS: Troponin I High Sensitivity 7.9 pg/ml (0-14)
[2024-07-19 00:17] LABS: Adenovirus PCR Not Detected (NotDetected); Bordetella parapertussis PCR Not Detected (NotDetected); Bordetella pertussis PCR Not Detected (NotDetected); Chlamydia pneumoniae PCR Not Detected (NotDetected); Coronavirus 229E PCR Not Detected (NotDetected); Coronavirus CoV-2 (COVID19)PCR Not Detected (NotDetected); Coronavirus HKU1 PCR Not Detected (NotDetected); Coronavirus NL63 PCR Not Detected (NotDetected); Coronavirus OC43PCR Not Detected (NotDetected); Human Metapneumovirus PCR Not Detected (NotDetected); Influenza A PCR Not Detected (NotDetected); Influenza B PCR Not Detected (NotDetected); Mycoplasma pneumoniae PCR Not Detected (NotDetected); Parainfluenza Virus 1 PCR Not Detected (NotDetected); Parainfluenza Virus 2 PCR Not Detected (NotDetected); Parainfluenza Virus 3 PCR Not Detected (NotDetected); Parainfluenza Virus 4 PCR Not Detected (NotDetected); Respiratory Syncytial VirusPCR Not Detected (NotDetected); Rhinovirus/Enterovirus PCR Not Detected (NotDetected)
[2024-07-19] MEDS: OPTIRAY 320 100ml IV ONE (00:24)
[2024-07-19 00:30] LABS: Appearance Urine Cloudy (Clear); Bacteria Urine Automated 2+ (None Seen); Bilirubin Urine Negative (Negative); Blood Urine Negative (Negative); Color Urine Yellow; Glucose Urine UA Negative (Negative); Ketones Urine Trace (Negative); Leukocyte Esterase Urine 3+ (Negative); Nitrite Urine Negative (Negative); Protein Urine Trace (Negative); RBC Urine Automated 0-2 /hpf (0-2); Specific Gravity Urine 1.027 (1.000-1.030); Urobilinogen Urine Negative (Negative); WBC Urine Automated >50 /hpf (0-5)
[2024-07-19 00:34] LABS: Basophils # (auto) 0.08 K/uL (0.00-0.20); Basophils % (auto) 0.5 %; Eosinophils # (auto) 0.03 K/uL (0.00-0.50); Eosinophils % (auto) 0.2 %; Immature Granulocytes # (auto) 0.09 K/uL (0.01-0.20); Immature Granulocytes % (auto) 0.5 %; Lymphocytes # (auto) 1.55 K/uL (1.20-3.40); Lymphocytes % (auto) 9.3 %; Monocytes # (auto) 1.19 K/uL (0.11-0.59); Monocytes % (auto) 7.1 %; Neutrophils # (auto) 13.81 K/uL (1.40-6.50); Neutrophils % (auto) 82.4 %; Polychromasia 2+
--- NOTE | 2024-07-19 00:40 | CT Scan Report ---
Exam(s): CT HEAD Without Contrast EXAM: CT Head Without Intravenous Contrast CLINICAL HISTORY: AMS. TECHNIQUE: Axial computed tomography images of the head/brain without intravenous contrast. CTDI is 37.32 mGy and DLP is 1772.84 mGy-cm. Automated exposure control was utilized for the study. A dose lowering technique was utilized adhering to the principles of ALARA. COMPARISON: CT head without contrast dated 12/13/2023 FINDINGS: Brain: No intracranial hemorrhage. No significant mass effect. No evidence for cortical infarct. Underlying parenchymal involutional changes and mild periventricular deep white matter hypodense changes, stable. Ventricles: Unremarkable. No ventriculomegaly. Bones/joints: Unremarkable. No acute fracture. Soft tissues: Unremarkable. Vasculature: Similar prominent atherosclerotic calcification of the cavernous and supraclinoid internal carotid arteries and the distal vertebral arteries. Sinuses: Unremarkable as visualized. No acute sinusitis. Mastoid air cells: Unremarkable as visualized. No mastoid effusion. IMPRESSION: No acute intracranial process or significant alteration from the prior examination. Chronic underlying presumed age-related findings, as noted above, not significantly altered. Electronically signed by: Gamal Jackson MD 07/19/24 00:39 AM
[2024-07-19 00:43] LABS: Thyroid Stimulating Hormone 41.701 uIu/ml (0.300-4.500)
--- NOTE | 2024-07-19 00:54 | CT Scan Report ---
Exam(s): CT ABDOMEN + PELVIS With Contrast IV Amt: 94 ml opti 320 EXAM: CT Abdomen and Pelvis With Intravenous Contrast CLINICAL HISTORY: nausea, GI bleed. TECHNIQUE: Axial computed tomography images of the abdomen and pelvis with intravenous contrast. CTDI is 37.32 mGy and DLP is 1772.84 mGy-cm. Automated exposure control was utilized for the study. A dose lowering technique was utilized adhering to the principles of ALARA. CONTRAST: Patient received 94 ml opti 320 of IV contrast COMPARISON: No relevant prior studies available. FINDINGS: Limitations: There is respiratory artifact, which degrades image quality on multiple image slices. Lung bases: Unremarkable. No mass. No consolidation. Mediastinum: A small hiatal hernia is noted. 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 The excluded stomach is at least moderately fluid distended. No significant mucosal thickening. However, there appears to be slight hyperenhancement of the excluded stomach. ABDOMEN: Liver: Unremarkable. No mass. Gallbladder and bile ducts: Cholecystectomy. Common bile duct is prominent measuring 13 cm in diameter. No common bile duct stone is seen. Pancreas: Unremarkable. No mass. No ductal dilation. Spleen: Unremarkable. No splenomegaly. Adrenals: Unremarkable. No mass. Kidneys and ureters: Unremarkable. No solid mass. No hydronephrosis. Stomach and bowel: No evidence for focal high-grade bowel obstruction. There is abnormal retained material in nondilated small bowel loops in the inferior abdomen and pelvis. Mild stool burden. Diverticulosis in the distal rectosigmoid colon without definitive focal diverticulitis. PELVIS: Appendix: No findings to suggest acute appendicitis. Bladder: Unremarkable. No mass. Reproductive: Unremarkable as visualized. ABDOMEN and PELVIS: Intraperitoneal space: Unremarkable. No free air. No significant fluid collection. Bones/joints: Compression fractures noted throughout the included thoracolumbar spine with sparing of only L1 level. There is a fracture line noted involving the inferior endplate at T12 level with loss of height centrally, estimated at 70% loss of height centrally. There is sclerosis adjacent to the superior endplate and mild buckling of the posterior cortex. No involvement of pedicles or posterior elements. Multilevel degenerative changes throughout the thoracolumbar spine. Facet hypertrophic changes noted inferiorly. No dislocation. Soft tissues: Mild kidneys edema throughout the superficial soft tissues of the abdomen and pelvis. Vasculature: Unremarkable. No abdominal aortic aneurysm. Lymph nodes: Unremarkable. No enlarged lymph nodes. IMPRESSION: 1. A small hiatal hernia is noted. 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 The excluded stomach is at least moderately fluid distended. No significant mucosal thickening. However, there appears to be slight hyperenhancement of the excluded stomach. Subtle gastritis may be present. 2. No evidence for focal high-grade bowel obstruction. There is abnormal retained material in nondilated small bowel loops in the inferior abdomen and pelvis. Findings suggest enteritis with delayed transit through the small bowel. 3. Mild stool burden. Diverticulosis in the distal rectosigmoid colon without definitive focal diverticulitis. No free intraperitoneal fluid or definite pneumoperitoneum. 4. Compression fractures noted throughout the included thoracolumbar spine with sparing of only L1 level. There is a fracture line noted involving the inferior endplate at T12 level with loss of height centrally, estimated at 70% loss of height centrally. There is sclerosis adjacent to the superior endplate and mild buckling of the posterior cortex. No involvement of pedicles or posterior elements. Findings are consistent with an acute to subacute process. The remaining compression fractures throughout the visualized spine are age indeterminant. 5. Mild kidneys edema throughout the superficial soft tissues of the abdomen and pelvis. Findings suggest mild positive fluid status. 6. Common bile duct is prominent measuring 13 cm in diameter. This is likely related to cholecystectomy. Electronically signed by: Gamal Jackson MD 07/19/24 00:54 AM
[2024-07-19 01:24] LABS: T4 Free Thyroxine 0.68 ng/dl (0.61-1.60)
[2024-07-19] MEDS ORDERED: SODIUM CHLORIDE 0.9% 250 ML IV PRN (01:26)
--- NOTE | 2024-07-19 01:27 | Emergency Department Note ---
ED Visit Note I was consulted by the Advanced Practice Provider. I approved the management plan and take responsibility for the patient management. -History/Physical/Personally seeing the patient -MDM -I independently interpreted the following studies:Studies and results .
--- NOTE | 2024-07-19 01:35 | History & Physical Report ---
Date of Service July 19, 2024 Assessment & Plan (1) Encephalopathy: Plan: Hypoactive delirium, hx CVA dementia Multifactorial: Complicated UTI, possible sepsis acute on chronic anemia secondary to UGIB, dark stools at home, positive FOBT at the ER as per ED provider (history GERD, possible gastritis on imaging, in the setting of antiplatelet and NOAC Rx) valvular heart disease (mild , trace TR, TTE 2023) A-fib on Eliquis hx PVD hypertension, currently stable hyperlipidemia, on statin Rx thyroid cancer status post surgery postsurgical hypothyroidism, TSH markedly elevated DM2 on oral medications, well-controlled as of recent hemoglobin A1c of 7 last December 2023 right breast cancer status post surgery/chemo radiation chronic lumbar back pain secondary to thoracolumbar compression fractures Admit to medical telemetry CS, Cefepime Follow lactic acid response to IVF Transfuse PRBC to maintain hemoglobin of at least 8 given patient history severe vascular disease Hold antiplatelet and NOAC Rx for now given GI bleed IV PPI GI consult re: UGIB N.p.o. in anticipation of endoscopy Increase current levothyroxine dose from 125 to 150 mcg daily, recheck TSH outpatient after 6 weeks ISS BG goal 1 10-1 40 PT OT eval once medically stable DVT prophylaxis. SCDs re: GI bleed Full code Patient daughter requesting updates providers. Ms. Tammy Pulliam, contact #[phone]. Text document was generated using [employer] voice recognition software. It may contain grammatical or spelling errors. Kindly contact undersigned for clarification of any documentation item in question. History of Present Illness Chief Complaint: Progressive weakness, stomach upset as per family Primary Care Provider: Maged Katz MD History obtained from patient, family, and records. Limited history from patient secondary to dementia. Medical history significant for valvular heart disease (mild , trace TR, TTE 2023), A-fib on Eliquis, CVA, PVD, hypertension, hyperlipidemia, DAVIS as per records, thyroid cancer status post surgery, postsurgical hypothyroidism, DM2 on oral medications, right breast cancer status post surgery/chemoradiation, dementia, GERD, history of gastric bypass, chronic anemia (baseline hemoglobin of 10-11), chronic lumbar back pain secondary to thoracolumbar compression fractures, osteoporosis. Last confinement February 2024 for back pain and ambulatory dysfunction. Patient also received antibiotic Rx for possible UTI. Patient discharged home on home health and PT. Patient increasingly weak over the last couple of weeks as per daughter. Patient denies headache, chest pain, SOB, unusual abdominal pain. Usual dark stools to iron Rx. Denies OTC NSAID intake. Back pain not any worse as per daughter but not getting better. PCP prescribed Fosamax for osteoporosis on DEXA scan but patient daughter hesitant to administer medication due to GI side effects. Patient dry heaving today and complaining of stomach upset. She could not swallow her pills. Patient more confused than usual. Outpatient provider recommended ER evaluation. Ceftriaxone, Protonix, 1 unit PRBC administered at the ER. 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 Allergies Allergy/AdvReac Type Severity Reaction Status Date / Time Penicillins Allergy Intermediate Hives Verified 07/19/24 00:26 Sulfa (Sulfonamide AdvReac Severe SEVERE Verified 07/19/24 00:26 Antibiotics) NAUSEA Home Medications Medication Instructions Recorded Confirmed Type apixaban 5 mg tablet (Eliquis) 5 mg PO AMHS 12/13/23 07/19/24 History lorazepam 0.5 mg tablet (Ativan) 0.5 mg PO Q8 PRN Anxiety 12/13/23 07/19/24 History metformin 500 mg tablet 1,000 mg PO BIDM 12/13/23 07/19/24 History pantoprazole 40 mg tablet,delayed 40 mg PO QAM 12/13/23 07/19/24 History release semaglutide 1 mg/dose (4 mg/3 mL) 1 mg subcut WK 12/13/23 07/19/24 History subcutaneous pen injector (Ozempic) aspirin 81 mg tablet,delayed 81 mg PO QAM 02/01/24 07/19/24 History release atorvastatin 40 mg tablet 40 mg PO QAM 02/01/24 07/19/24 History levothyroxine 125 mcg tablet 125 mcg PO DAILYBB 02/01/24 07/19/24 History metoprolol tartrate 25 mg tablet 12.5 mg PO AMHS 02/01/24 07/19/24 History cholecalciferol (vitamin D3) 125 125 mcg PO QAM #30 tabs 02/06/24 07/19/24 Rx mcg (5,000 unit) tablet ferrous sulfate 325 mg (65 mg 325 mg PO QAM #30 tabs 02/06/24 07/19/24 Rx iron) tablet,delayed release verapamil 40 mg tablet 40 mg PO AMHS #60 tabs 02/06/24 07/19/24 Rx acetaminophen 650 mg 650 mg PO TID ud 03/11/24 07/19/24 History tablet,extended release cyanocobalamin (vitamin B-12) 1,000 mcg PO QAM 03/11/24 07/19/24 History 1,000 mcg tablet,extended release (Vitamin B-12 ER) sertraline 25 mg tablet 25 mg PO QAM 03/11/24 07/19/24 History lidocaine 4 % topical patch 1 patch topical DAILY #15 ea 03/16/24 07/19/24 Rx calcitonin (salmon) 200 1 spray intranasal (ALT) QAM 07/19/24 07/19/24 History unit/actuation nasal spray nystatin 100,000 unit/gram topical 1 applic topical BID 07/19/24 07/19/24 History powder oxycodone 5 mg tablet 5 mg PO TID pain 07/19/24 07/19/24 History Past Med/Surg History Problem List (Updated 07/19/24 @ 02:38 by Devyn Roblero MD) Encephalopathy Acute confusion (Acute) Weakness (Acute) Symptomatic anemia (Acute) Hypomagnesemia (Acute) Compression fracture of lumbosacral spine (Acute) Lightheadedness GERD (gastroesophageal reflux disease) Persistent atrial fibrillation Vascular dementia Hypothyroidism (Acute) History of stroke Medical History Acute UTI History of breast cancer Surgical History Hx of cholecystectomy H/O section H/O gastric bypass Left ulnar fracture s/p surgical repair 01/02/[address] [facility] Family History Other Breast cancer Diabetes Hypertension Social History Smoking Status: Never smoker Hx Alcohol Use: No Hx Substance Use: No Preferred Language: Bengali Communication Ability: Effective [place] Compounder Required: No Beliefs That Will Affect Care: None Current Living Situation: Alone Current Living Situation Comment: Lives alone with cat, daughter lives across the street Feels Safe at Home: Yes Assistive Devices: Brace/Splint/Immobilizer, Cane and Walker Review of Systems Review of Systems: Could not be reliably obtained secondary to dementia Physical Exam Physical Exam: GENERAL: Pleasantly demented, comfortable, no respiratory distress SKIN: Pallor, warm HEENT: Bespectacled, pale palpebral conjunctivae, no ptosis, dry buccal mucosa NECK : Supple, no tenderness CHEST : CTA, no tenderness HEART : RRR, systolic murmur ABDOMEN: Some distention, minimal epigastric tenderness EXTREMITIES : Minimal LE swelling, no LE tenderness, no other conspicuous deformities noted NEUROLOGIC : Demented, no facial asymmetry, no other gross focality Results & Data Results & Data Vital Signs (Past 12 Hours) Vital Signs Temp Pulse Pulse Resp BP BP Pulse Ox 07/19/24 01:22 77 14 136/61 100 07/19/24 01:18 36.7 C 73 16 136/81 99 07/18/24 23:40 74 18 129/64 100 07/18/24 23:29 81 07/18/24 23:02 93 07/18/24 22:40 36.3 C L 69 18 103/54 L 97 O2 Del Method 07/19/24 01:22 Room Air 07/19/24 01:18 07/18/24 23:40 07/18/24 23:29 07/18/24 23:02 Room Air 07/18/24 22:40 Room Air Laboratory Results Laboratory Results WBC 16.75 K/ul (4.8-10.8) H 07/18/24 23:04 RBC 1.94 M/uL (4.20-5.40) L 07/18/24 23:04 Hgb 5.3 g/dl (12.0-16.0) L* 07/18/24 23:04 Hct 18.5 % (37.0-47.0) L* 07/18/24 23:04 MCV 95.4 fL (80.0-100.0) 07/18/24 23:04 MCH 27.3 pg (25.0-34.0) 07/18/24 23:04 MCHC 28.6 g/dL (32.0-36.0) L 07/18/24 23:04 RDW Std Deviation 61.0 fL (36.4-46.3) H 07/18/24 23:04 RDW Coeff of Valentina 18.2 % (11.5-14.5) H 07/18/24 23:04 Plt Count 175 K/uL (130-400) 07/18/24 23:04 MPV 11.4 fL (9.4-12.4) 07/18/24 23:04 Immature Gran % (Auto) 0.5 % 07/18/24 23:04 Neut % (Auto) 82.4 % 07/18/24 23:04 Lymph % (Auto) 9.3 % 07/18/24 23:04 [place] % (Auto) 7.1 % 07/18/24 23:04 Eos % (Auto) 0.2 % 07/18/24 23:04 Baso % (Auto) 0.5 % 07/18/24 23:04 Neut # (Auto) 13.81 K/uL (1.40-6.50) H 07/18/24 23:04 Lymph # (Auto) 1.55 K/uL (1.20-3.40) 07/18/24 23:04 [place] # (Auto) 1.19 K/uL (0.11-0.59) H 07/18/24 23:04 Eos # (Auto) 0.03 K/uL (0.00-0.50) 07/18/24 23:04 Baso # (Auto) 0.08 K/uL (0.00-0.20) 07/18/24 23:04 Immature Gran # (Auto) 0.09 K/uL (0.01-0.20) 07/18/24 23:04 Polychromasia 2+ 07/18/24 23:04 Sodium 134 mmol/L (136-145) L 07/18/24 23:04 Potassium 4.2 mmol/L (3.5-5.1) 07/18/24 23:04 Chloride 103 mmol/L (98-107) 07/18/24 23:04 Carbon Dioxide 17 mmol/L (21-32) L 07/18/24 23:04 Anion Gap 14 (3-11) H 07/18/24 23:04 BUN 24 mg/dl (6-23) H 07/18/24 23:04 Creatinine 0.86 mg/dl (0.6-1.2) 07/18/24 23:04 Est Cr Clr Drug Dosing 46.8 ml/min 07/18/24 23:04 Est GFR ( Amer) 76.6 ml/min 07/18/24 23:04 Est GFR (Non-Af Amer) 66.1 ml/min 07/18/24 23:04 BUN/Creatinine Ratio 27.9 (10-20) H 07/18/24 23:04 Glucose 172 mg/dl (70-99(Fasting)) H 07/18/24 23:04 Lactate 5.8 mmol/L (0.4-2.0) H* 07/19/24 01:02 Calcium 8.7 mg/dl (8.6-10.3) 07/18/24 23:04 Total Bilirubin 0.4 mg/dl (0.2-1.0) 07/18/24 23:04 AST 14 U/L (13-39) 07/18/24 23:04 ALT 10 U/L (7-52) 07/18/24 23:04 Alkaline Phosphatase 46 U/L (34-104) 07/18/24 23:04 Total Creatine Kinase 41 U/L (26-192) 07/18/24 23:04 Troponin I High Sens 7.9 pg/ml (0-14) 07/18/24 23:04 Total Protein 5.9 gm/dl (6.0-8.3) L 07/18/24 23:04 Albumin 3.7 gm/dl (3.4-5.0) 07/18/24 23:04 Globulin 2.2 gm/dl (2.5-4.0) L 07/18/24 23:04 Albumin/Globulin Ratio 1.7 (0.9-2) 07/18/24 23:04 Procalcitonin 0.06 ng/ml (0-0.5) 07/18/24 23:38 TSH 41.701 uIu/ml (0.300-4.500) H 07/18/24 23:04 Free T4 0.68 ng/dl (0.61-1.60) 07/18/24 23:04 Urine Color Yellow 07/18/24 23:16 Urine Appearance Cloudy (Clear) A 07/18/24 23:16 Urine pH 5.0 (4.5-7.5) 07/18/24 23:16 Ur Specific [place] 1.027 (1.000-1.030) 07/18/24 23:16 Urine Protein Trace (Negative) H 07/18/24 23:16 Urine Glucose (UA) Negative (Negative) 07/18/24 23:16 Urine Ketones Trace (Negative) H 07/18/24 23:16 Urine Blood Negative (Negative) 07/18/24 23:16 Urine Nitrite Negative (Negative) 07/18/24 23:16 Urine Bilirubin Negative (Negative) 07/18/24 23:16 Urine Urobilinogen Negative (Negative) 07/18/24 23:16 Ur Leukocyte Esterase 3+ (Negative) H 07/18/24 23:16 Urine WBC (Auto) >50 /hpf (0-5) H 07/18/24 23:16 Urine RBC (Auto) 0-2 /hpf (0-2) 07/18/24 23:16 U Hyaline Cast (Auto) 11-20 /lpf (0-2) H 07/18/24 23:16 U Epithel Cells (Auto) 6-10 /hpf (0-2) H 07/18/24 23:16 Urine Bacteria (Auto) 2+ (None Seen) H 07/18/24 23:16 Adenovirus (PCR) Not Detected (NotDetected) 07/18/24 23:04 B. pertussis DNA (PCR) Not Detected (NotDetected) 07/18/24 23:04 B.parapertussis DNA PCR Not Detected (NotDetected) 07/18/24 23:04 C. pneumoniae DNA (PCR) Not Detected (NotDetected) 07/18/24 23:04 Coronavirus OC43 (PCR) Not Detected (NotDetected) 07/18/24 23:04 Coronavirus HKU1 (PCR) Not Detected (NotDetected) 07/18/24 23:04 Coronavirus 229E (PCR) Not Detected (NotDetected) 07/18/24 23:04 SARS-CoV-2 (PCR) Not Detected (NotDetected) 07/18/24 23:04 Coronavirus NL63 (PCR) Not Detected (NotDetected) 07/18/24 23:04 Human Metapneumovir PCR Not Detected (NotDetected) 07/18/24 23:04 Influenza Type A (PCR) Not Detected (NotDetected) 07/18/24 23:04 Influenza Type B (PCR) Not Detected (NotDetected) 07/18/24 23:04 M. pneumoniae (PCR) Not Detected (NotDetected) 07/18/24 23:04 Parainfluenza 1 (PCR) Not Detected (NotDetected) 07/18/24 23:04 Parainfluenza 2 (PCR) Not Detected (NotDetected) 07/18/24 23:04 Parainfluenza 3 (PCR) Not Detected (NotDetected) 07/18/24 23:04 Parainfluenza 4 (PCR) Not Detected (NotDetected) 07/18/24 23:04 RSV (PCR) Not Detected (NotDetected) 07/18/24 23:04 Entero/Rhino (PCR) Not Detected (NotDetected) 07/18/24 23:04 Blood Type O Positive 07/18/24 23:21 Blood Type Recheck O Positive 07/18/24 23:55 Antibody Screen NEGATIVE 07/18/24 23:21 Crossmatch See Detail 07/18/24 23:[address] 07/18/24 22:54 Exam(s): CT HEAD Without Contrast EXAM: CT Head Without Intravenous Contrast CLINICAL HISTORY: AMS. TECHNIQUE: Axial computed tomography images of the head/brain without intravenous contrast. CTDI is 37.32 mGy and DLP is 1772.84 mGy-cm. Automated exposure control was utilized for the study. A dose lowering technique was utilized adhering to the principles of ALARA. COMPARISON: CT head without contrast dated 12/13/2023 FINDINGS: Brain: No intracranial hemorrhage. No significant mass effect. No evidence for cortical infarct. Underlying parenchymal involutional changes and mild periventricular deep white matter hypodense changes, stable. Ventricles: Unremarkable. No ventriculomegaly. Bones/joints: Unremarkable. No acute fracture. Soft tissues: Unremarkable. Vasculature: Similar prominent atherosclerotic calcification of the cavernous and supraclinoid internal carotid arteries and the distal vertebral arteries. Sinuses: Unremarkable as visualized. No acute sinusitis. Mastoid air cells: Unremarkable as visualized. No mastoid effusion. IMPRESSION: No acute intracranial process or significant alteration from the prior examination. Chronic underlying presumed age-related findings, as noted above, not significantly altered. Electronically signed by: Gamal Jackson MD 07/19/24 00:39 AM Abdomen/Pelvis CT 07/18/24 23:13 Exam(s): CT ABDOMEN + PELVIS With Contrast IV Amt: 94 ml opti 320 EXAM: CT Abdomen and Pelvis With Intravenous Contrast CLINICAL HISTORY: nausea, GI bleed. TECHNIQUE: Axial computed tomography images of the abdomen and pelvis with intravenous contrast. CTDI is 37.32 mGy and DLP is 1772.84 mGy-cm. Automated exposure control was utilized for the study. A dose lowering technique was utilized adhering to the principles of ALARA. CONTRAST: Patient received 94 ml opti 320 of IV contrast COMPARISON: No relevant prior studies available. FINDINGS: Limitations: There is respiratory artifact, which degrades image quality on multiple image slices. Lung bases: Unremarkable. No mass. No consolidation. Mediastinum: A small hiatal hernia is noted. 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 The excluded stomach is at least moderately fluid distended. No significant mucosal thickening. However, there appears to be slight hyperenhancement of the excluded stomach. ABDOMEN: Liver: Unremarkable. No mass. Gallbladder and bile ducts: Cholecystectomy. Common bile duct is prominent measuring 13 cm in diameter. No common bile duct stone is seen. Pancreas: Unremarkable. No mass. No ductal dilation. Spleen: Unremarkable. No splenomegaly. Adrenals: Unremarkable. No mass. Kidneys and ureters: Unremarkable. No solid mass. No hydronephrosis. Stomach and bowel: No evidence for focal high-grade bowel obstruction. There is abnormal retained material in nondilated small bowel loops in the inferior abdomen and pelvis. Mild stool burden. Diverticulosis in the distal rectosigmoid colon without definitive focal diverticulitis. PELVIS: Appendix: No findings to suggest acute appendicitis. Bladder: Unremarkable. No mass. Reproductive: Unremarkable as visualized. ABDOMEN and PELVIS: Intraperitoneal space: Unremarkable. No free air. No significant fluid collection. Bones/joints: Compression fractures noted throughout the included thoracolumbar spine with sparing of only L1 level. There is a fracture line noted involving the inferior endplate at T12 level with loss of height centrally, estimated at 70% loss of height centrally. There is sclerosis adjacent to the superior endplate and mild buckling of the posterior cortex. No involvement of pedicles or posterior elements. Multilevel degenerative changes throughout the thoracolumbar spine. Facet hypertrophic changes noted inferiorly. No dislocation. Soft tissues: Mild kidneys edema throughout the superficial soft tissues of the abdomen and pelvis. Vasculature: Unremarkable. No abdominal aortic aneurysm. Lymph nodes: Unremarkable. No enlarged lymph nodes. IMPRESSION: 1. A small hiatal hernia is noted. 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 The excluded stomach is at least moderately fluid distended. No significant mucosal thickening. However, there appears to be slight hyperenhancement of the excluded stomach. Subtle gastritis may be present. 2. No evidence for focal high-grade bowel obstruction. There is abnormal retained material in nondilated small bowel loops in the inferior abdomen and pelvis. Findings suggest enteritis with delayed transit through the small bowel. 3. Mild stool burden. Diverticulosis in the distal rectosigmoid colon without definitive focal diverticulitis. No free intraperitoneal fluid or definite pneumoperitoneum. 4. Compression fractures noted throughout the included thoracolumbar spine with sparing of only L1 level. There is a fracture line noted involving the inferior endplate at T12 level with loss of height centrally, estimated at 70% loss of height centrally. There is sclerosis adjacent to the superior endplate and mild buckling of the posterior cortex. No involvement of pedicles or posterior elements. Findings are consistent with an acute to subacute process. The remaining compression fractures throughout the visualized spine are age indeterminant. 5. Mild kidneys edema throughout the superficial soft tissues of the abdomen and pelvis. Findings suggest mild positive fluid status. 6. Common bile duct is prominent measuring 13 cm in diameter. This is likely related to cholecystectomy. Electronically signed by: Gamal Jackson MD 07/19/24 00:54 AM Diagnostic Findings EKG as per my interpretation : Rate 75, NSR, normal axis, negative ischemia, PVCs
[2024-07-19] MEDS: cefTRIAXone SODIUM 2,000 MG/50 ML BAG IV STA (01:47)
[2024-07-19] MEDS: LACTATED RINGER'S 1,000 ML IV ONE (01:53)
[2024-07-19 02:00] LABS: iSTAT Creatinine 0.9 mg/dl (0.6-1.3); iSTAT Hemoglobin 5.8 g/dl (12.0-16.0); iSTAT Ionized Calcium 1.18 mmol/l (1.12-1.32); iSTAT Potassium 4.3 mmol/L (3.3-5.0)
[2024-07-19] MEDS ORDERED: PROMETHAZINE 6.25 MG/50.25 ML BAG IV PRN (02:09)
[2024-07-19] MEDS: ACETAMINOPHEN 325 MG TAB PO PRN (02:23)
[2024-07-19] MEDS: CEFEPIME 2,000 MG/20 ML VIAL IV STA (02:25)
[2024-07-19] MEDS: PANTOprazole 40 MG in DEXTROSE 5% MINI-B 100 ML IV SCH (03:22)
[2024-07-19] MEDS: MAGNESIUM SULFATE / D5W 1 GM/100 ML BAG IV SCH (03:27)
[2024-07-19] MEDS ORDERED: GLUCOSE 40% GEL 15 GM TUBE PO PRN (06:00)
[2024-07-19] MEDS ORDERED: GLUCAGON FOR INJ 1 MG VIAL SQ PRN (06:00)
[2024-07-19] MEDS ORDERED: DEXTROSE 50% 50 ML SYRINGE IV PRN (06:00)
[2024-07-19] MEDS ORDERED: CARBOHYDRATES FOR HYPOGLYCEMIA PO PRN (06:00)
[2024-07-19] MEDS ORDERED: GLUCOSE 10 TAB/TUBE PO PRN (06:00)
--- NOTE | 2024-07-19 06:54 | XRay Report ---
XR chest 1V portable HISTORY: 74 years-old Female weakness COMPARISON: 12/13/2023 TECHNIQUE: AP view of the chest FINDINGS: Cardiac silhouette is mildly enlarged. Atherosclerosis of the aorta. No pneumothorax, pleural effusio n or airspace consolidation. Right shoulder arthroplasty. Degenerative changes of the spine and left shoulder. Calcified right hilar lymph nodes. Right upper abdominal surgical clips. Small hiatal herni a. IMPRESSION: No acute process. ACT 112: Negative or not required by law. The above report was generated using voice recognition software. It may contain grammatical, syntax o r spelling errors. Electronically signed by: Chris Harrell M.D. 07/19/2024 6:53 AM
[2024-07-19] MEDS: INSULIN ASPART PER UNIT CHARGE SC SCH ×2 (07:26→16:54)
[2024-07-19] MEDS: LEVOTHYROXINE SODIUM 150 MCG TABLET PO SCH (07:27)
--- NOTE | 2024-07-19 07:54 | Electrocardiogram Report ---
Test Reason : Blood Pressure : */* mmHG Vent. Rate : 77 BPM Atrial Rate : 77 BPM P-R Int : 146 ms QRS Dur : 92 ms QT Int : 378 ms P-R-T Axes : 90 11 76 degrees QTcB Int : 427 ms Sinus rhythm with occasional Premature ventricular complexes Cannot rule out Anterior infarct , age undetermined Diffuse T wave abnormality Abnormal ECG No previous ECGs available Confirmed by Stacy Roman (Kev) on 07/19/2024 7:54:09 AM Referred By: REFERRED SELF Confirmed By: Stacy Roman
[2024-07-19] MEDS: SERTRALINE HCL 50 MG TABLET PO SCH (08:12)
[2024-07-19] MEDS: ATORVASTATIN 40 MG TAB PO SCH (08:13)
[2024-07-19] MEDS: CYANOCOBALAMIN (B-12) 500 MCG TABLET PO SCH (08:13)
[2024-07-19] MEDS: VERAPAMIL HCL 40 MG TAB PO SCH (08:13)
[2024-07-19] MEDS: METOPROLOL TARTRATE 25 MG TAB PO SCH (08:13)
--- NOTE | 2024-07-19 11:19 | Gastrointestinal Consultation ---
Date of Consultation July 19, 2024 Assessment & Plan (1) Anemia: 74 year old female with history of atrial fibrillation on anticoagulation, history of stroke, T2DM, hypothyroidism, vascular dementia, h/o breast cancer s/p lumpectomy, chemo and XRT, and others below admitted through the ED w/ altered mental status, anemia - NPO - EGD this AM - Trend H&H - Monitor GI output - Transfuse PRN - Hold anticoagulation - If EGD negative, consider colonoscopy this admission - Discussed with daughter on phone, Tammy, who is available to provide verbal consent I spent a total of 60 minutes on the date of service in review of patient's record, and previously obtained information in person and appropriate medical visit, discussion and education of plan, with patient and/or caregiver, placing orders for tests/referral/procedures as medically necessary and documentation of pertinent clinical information in patient's medical records for their visit today. Supervising Physician Co-Signing Physician Notes I examined the patient and reviewed patient's chart , laboratory data and imaging studies. I agree with with assessment and plan of care as suggested by advanced practice provider History of Present Illness Reason for Consultation: UGI bleed Requesting Physician: Lobo Attending Physician: Edvin Diamond MD History of Present Illness 74 year old female with history of atrial fibrillation on anticoagulation, history of stroke, T2DM, hypothyroidism, vascular dementia, h/o breast cancer s/p lumpectomy, chemo and XRT, and others below admitted through the ED w/ altered mental status, anemia. GI was asked to evaluate. Denies abd pain. No nausea, vomiting. Reports she has had regular BMs. Denies black or bloody stools to me. S/P 2 units RBC and 1 unit running HGB 11.1 --> 5.3 BUN 24 CTAP 2023: A small hiatal hernia is noted. 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 The excluded stomach is at least moderately fluid distended. No significant mucosal thickening. However, there appears to be slight hyperenhancement of the excluded stomach. Subtle gastritis may be present. No evidence for focal high-grade bowel obstruction. There is abnormal retained material in nondilated small bowel loops in the inferior abdomen and pelvis. Findings suggest enteritis with delayed transit through the small bowel. Mild stool burden. Diverticulosis in the distal rectosigmoid colon without definitive focal diverticulitis. No free intraperitoneal fluid or definite pneumoperitoneum. Compression fractures noted throughout the included thoracolumbar spine with sparing of only L1 level. There is a fracture line noted involving the inferior endplate at T12 level with loss of height centrally, estimated at 70% loss of height centrally. There is sclerosis adjacent to the superior endplate and mild buckling of the posterior cortex. No involvement of pedicles or posterior elements. Findings are consistent with an acute to subacute process. The remaining compression fractures throughout the visualized spine are age indeterminant. Mild kidneys edema throughout the superficial soft tissues of the abdomen and pelvis. Findings suggest mild positive fluid status. Common bile duct is prominent measuring 13 cm in diameter. This is likely related to cholecystectomy. EGD: none in system Cologuard: per daughter a year or so ago Colonoscopy: per daughter, a few years ago, [facility] Allergies Allergy/AdvReac Type Severity Reaction Status Date / Time Penicillins Allergy Intermediate Hives Verified 07/19/24 00:26 Sulfa (Sulfonamide AdvReac Severe SEVERE Verified 07/19/24 00:26 Antibiotics) NAUSEA Home Medications Medication Instructions Recorded Confirmed Type apixaban 5 mg tablet (Eliquis) 5 mg PO AMHS 12/13/23 07/19/24 History lorazepam 0.5 mg tablet (Ativan) 0.5 mg PO Q8 PRN Anxiety 12/13/23 07/19/24 History metformin 500 mg tablet 1,000 mg PO BIDM 12/13/23 07/19/24 History pantoprazole 40 mg tablet,delayed 40 mg PO QAM 12/13/23 07/19/24 History release semaglutide 1 mg/dose (4 mg/3 mL) 1 mg subcut WK 12/13/23 07/19/24 History subcutaneous pen injector (Ozempic) aspirin 81 mg tablet,delayed 81 mg PO QAM 02/01/24 07/19/24 History release atorvastatin 40 mg tablet 40 mg PO QAM 02/01/24 07/19/24 History levothyroxine 125 mcg tablet 125 mcg PO DAILYBB 02/01/24 07/19/24 History metoprolol tartrate 25 mg tablet 12.5 mg PO AMHS 02/01/24 07/19/24 History cholecalciferol (vitamin D3) 125 125 mcg PO QAM #30 tabs 02/06/24 07/19/24 Rx mcg (5,000 unit) tablet ferrous sulfate 325 mg (65 mg 325 mg PO QAM #30 tabs 02/06/24 07/19/24 Rx iron) tablet,delayed release verapamil 40 mg tablet 40 mg PO AMHS #60 tabs 02/06/24 07/19/24 Rx acetaminophen 650 mg 650 mg PO TID ud 03/11/24 07/19/24 History tablet,extended release cyanocobalamin (vitamin B-12) 1,000 mcg PO QAM 03/11/24 07/19/24 History 1,000 mcg tablet,extended release (Vitamin B-12 ER) sertraline 25 mg tablet 25 mg PO QAM 03/11/24 07/19/24 History lidocaine 4 % topical patch 1 patch topical DAILY #15 ea 03/16/24 07/19/24 Rx calcitonin (salmon) 200 1 spray intranasal (ALT) QAM 07/19/24 07/19/24 History unit/actuation nasal spray nystatin 100,000 unit/gram topical 1 applic topical BID 07/19/24 07/19/24 History powder oxycodone 5 mg tablet 5 mg PO TID pain 07/19/24 07/19/24 History Patient History Medical History (Updated 07/19/24 @ 15:16 by Vincent Suazo MD) Encounter for pre-operative examination Compression fracture of lumbosacral spine DAVIS (obstructive sleep apnea) Aortic stenosis CVA (cerebral vascular accident) Anemia Encephalopathy Persistent atrial fibrillation Diabetes mellitus Acute UTI History of breast cancer Surgical History Hx of cholecystectomy H/O section H/O gastric bypass Left ulnar fracture s/p surgical repair 01/02/24 at [facility] Family History Other Breast cancer Diabetes Hypertension Social History Smoking Status: Never smoker Hx Alcohol Use: No Hx Substance Use: No Preferred Language: Lao Communication Ability: Effective Bone Tender Required: No Beliefs That Will Affect Care: None Current Living Situation: Alone and Family Current Living Situation Comment: Lives alone with cat, daughter lives across the street Other Information That Helps Us Care for You: No Feels Safe at Home: Yes Safety Concerns: Feels Safe At This Time Assistive Devices: Glasses and Walker Review of Systems Review of Systems: All other findings negative except as noted in HPI. Physical Exam Constitutional: WD/WN, vitals as above Respiratory: normal respiratory effort, lungs clear to auscultation Cardiovascular: RRR, no murmur, no edema Gastrointestinal (Abdomen): normal bowel sounds, soft, nontender, no hepatosplenomegaly Skin: no rashes, warm and dry Results & Data Vital Signs (Past 12 Hours) Vital Signs Temp Pulse Pulse Resp BP BP Pulse Ox 07/19/24 11:05 68 16 122/64 100 07/19/24 10:06 36.6 C 57 L 16 115/62 96 07/19/24 09:36 36.6 C 63 20 126/65 97 07/19/24 09:21 36.6 C 63 16 118/65 99 07/19/24 09:10 36.6 C 60 16 113/63 99 07/19/24 09:06 36.6 C 60 16 107/61 96 07/19/24 08:30 36.9 C 79 16 138/69 99 07/19/24 08:09 36.9 C 74 16 106/58 L 99 07/19/24 07:09 36.5 C 76 16 112/64 100 07/19/24 06:39 36.5 C 70 16 121/64 99 07/19/24 06:24 36.4 C L 75 18 119/77 96 07/19/24 06:24 36.5 C 68 16 118/63 100 07/19/24 06:08 36.6 C 75 16 116/63 97 07/19/24 03:52 36.7 C 75 16 126/63 100 07/19/24 03:48 36.6 C 75 16 143/61 H 99 07/19/24 03:39 73 07/19/24 03:38 07/19/24 03:26 36.7 C 77 16 121/58 L 100 07/19/24 03:22 36.6 C 77 16 121/58 L 100 07/19/24 02:22 36.7 C 79 14 134/71 100 07/19/24 01:52 79 14 148/74 H 99 07/19/24 01:51 36.6 C 79 14 148/74 H 99 07/19/24 01:37 36.9 C 78 16 137/68 100 07/19/24 01:22 77 14 136/61 100 07/19/24 01:18 36.7 C 73 16 136/81 99 07/18/24 23:40 74 18 129/64 100 07/18/24 23:29 81 O2 Del Method O2 Flow Rate 07/19/24 11:05 07/19/24 10:06 07/19/24 09:36 07/19/24 09:21 07/19/24 09:10 07/19/24 09:06 07/19/24 08:30 07/19/24 08:09 07/19/24 07:09 07/19/24 06:39 07/19/24 06:24 0 07/19/24 06:24 07/19/24 06:08 07/19/24 03:52 07/19/24 03:48 Room Air 07/19/24 03:39 07/19/24 03:38 Room Air 07/19/24 03:26 Room Air 07/19/24 03:22 07/19/24 02:22 07/19/24 01:52 07/19/24 01:51 07/19/24 01:37 07/19/24 01:22 Room Air 07/19/24 01:18 07/18/24 23:40 07/18/24 23:29 Laboratory Results 07/19/24 07/19/24 07/18/24 Range/Units 07:25 01:02 23:55 WBC (4.8-10.8) K/ul RBC (4.20-5.40) M/uL Hgb (12.0-16.0) g/dl POC Hgb (12.0-16.0) g/dl Hct (37.0-47.0) % POC Hct (37-47) % MCV (80.0-100.0) fL MCH (25.0-34.0) pg MCHC (32.0-36.0) g/dL RDW Std Deviation (36.4-46.3) fL RDW Coeff of Valentina (11.5-14.5) % Plt Count (130-400) K/uL MPV (9.4-12.4) fL Immature Gran % (Auto) % Neut % (Auto) % Lymph % (Auto) % [place] % (Auto) % Eos % (Auto) % Baso % (Auto) % Neut # (Auto) (1.40-6.50) K/uL Lymph # (Auto) (1.20-3.40) K/uL [place] # (Auto) (0.11-0.59) K/uL Eos # (Auto) (0.00-0.50) K/uL Baso # (Auto) (0.00-0.20) K/uL Immature Gran # (Auto) (0.01-0.20) K/uL Polychromasia POC Sodium (135-144) mmol/L Sodium (136-145) mmol/L POC Potassium (3.3-5.0) mmol/L Potassium (3.5-5.1) mmol/L POC Chloride (101-112) mmol/L Chloride (98-107) mmol/L Carbon Dioxide (21-32) mmol/L POC Total CO2 (24-31) mmol/L Anion Gap (3-11) POC Anion Gap (16-25) mmol/L POC BUN (7-18) mg/dl BUN (6-23) mg/dl Creatinine (0.6-1.2) mg/dl POC Creatinine (0.6-1.3) mg/dl Est Cr Clr Drug Dosing ml/min Est GFR ( Amer) ml/min Est GFR (Non-Af Amer) ml/min BUN/Creatinine Ratio (10-20) Glucose (70-99(Fasting)) mg/dl POC Glucose 132 H (70-99) mg/dl POC Glucose (other) (70-99) mg/dl Lactate 5.8 H* (0.4-2.0) mmol/L Calcium (8.6-10.3) mg/dl POC Ioniz Calcium Edward (1.12-1.32) mmol/l Magnesium (1.7-2.4) mg/dl Total Bilirubin (0.2-1.0) mg/dl AST (13-39) U/L ALT (7-52) U/L Alkaline Phosphatase (34-104) U/L Total Creatine Kinase (26-192) U/L Troponin I High Sens (0-14) pg/ml Total Protein (6.0-8.3) gm/dl Albumin (3.4-5.0) gm/dl Globulin (2.5-4.0) gm/dl Albumin/Globulin Ratio (0.9-2) Procalcitonin (0-0.5) ng/ml TSH (0.300-4.500) uIu/ml Free T4 (0.61-1.60) ng/dl Urine Color Urine Appearance (Clear) Urine pH (4.5-7.5) Ur Specific [place] (1.000-1.030) Urine Protein (Negative) Urine Glucose (UA) (Negative) Urine Ketones (Negative) Urine Blood (Negative) Urine Nitrite (Negative) Urine Bilirubin (Negative) Urine Urobilinogen (Negative) Ur Leukocyte Esterase (Negative) Urine WBC (Auto) (0-5) /hpf Urine RBC (Auto) (0-2) /hpf U Hyaline Cast (Auto) (0-2) /lpf U Epithel Cells (Auto) (0-2) /hpf Urine Bacteria (Auto) (None Seen) Adenovirus (PCR) (NotDetected) B. pertussis DNA (PCR) (NotDetected) B.parapertussis DNA PCR (NotDetected) C. pneumoniae DNA (PCR) (NotDetected) Coronavirus OC43 (PCR) (NotDetected) Coronavirus HKU1 (PCR) (NotDetected) Coronavirus 229E (PCR) (NotDetected) SARS-CoV-2 (PCR) (NotDetected) Coronavirus NL63 (PCR) (NotDetected) Human Metapneumovir PCR (NotDetected) Influenza Type A (PCR) (NotDetected) Influenza Type B (PCR) (NotDetected) M. pneumoniae (PCR) (NotDetected) Parainfluenza 1 (PCR) (NotDetected) Parainfluenza 2 (PCR) (NotDetected) Parainfluenza 3 (PCR) (NotDetected) Parainfluenza 4 (PCR) (NotDetected) RSV (PCR) (NotDetected) Entero/Rhino (PCR) (NotDetected) Blood Type Blood Type Recheck O Positive Antibody Screen Crossmatch 07/18/24 07/18/24 07/18/24 Range/Units 23:38 23:21 23:16 WBC (4.8-10.8) K/ul RBC (4.20-5.40) M/uL Hgb (12.0-16.0) g/dl POC Hgb (12.0-16.0) g/dl Hct (37.0-47.0) % POC Hct (37-47) % MCV (80.0-100.0) fL MCH (25.0-34.0) pg MCHC (32.0-36.0) g/dL RDW Std Deviation (36.4-46.3) fL RDW Coeff of Valentina (11.5-14.5) % Plt Count (130-400) K/uL MPV (9.4-12.4) fL Immature Gran % (Auto) % Neut % (Auto) % Lymph % (Auto) % [place] % (Auto) % Eos % (Auto) % Baso % (Auto) % Neut # (Auto) (1.40-6.50) K/uL Lymph # (Auto) (1.20-3.40) K/uL [place] # (Auto) (0.11-0.59) K/uL Eos # (Auto) (0.00-0.50) K/uL Baso # (Auto) (0.00-0.20) K/uL Immature Gran # (Auto) (0.01-0.20) K/uL Polychromasia POC Sodium (135-144) mmol/L Sodium (136-145) mmol/L POC Potassium (3.3-5.0) mmol/L Potassium (3.5-5.1) mmol/L POC Chloride (101-112) mmol/L Chloride (98-107) mmol/L Carbon Dioxide (21-32) mmol/L POC Total CO2 (24-31) mmol/L Anion Gap (3-11) POC Anion Gap (16-25) mmol/L POC BUN (7-18) mg/dl BUN (6-23) mg/dl Creatinine (0.6-1.2) mg/dl POC Creatinine (0.6-1.3) mg/dl Est Cr Clr Drug Dosing ml/min Est GFR ( Amer) ml/min Est GFR (Non-Af Amer) ml/min BUN/Creatinine Ratio (10-20) Glucose (70-99(Fasting)) mg/dl POC Glucose (70-99) mg/dl POC Glucose (other) (70-99) mg/dl Lactate (0.4-2.0) mmol/L Calcium (8.6-10.3) mg/dl POC Ioniz Calcium Edward (1.12-1.32) mmol/l Magnesium (1.7-2.4) mg/dl Total Bilirubin (0.2-1.0) mg/dl AST (13-39) U/L ALT (7-52) U/L Alkaline Phosphatase (34-104) U/L Total Creatine Kinase (26-192) U/L Troponin I High Sens (0-14) pg/ml Total Protein (6.0-8.3) gm/dl Albumin (3.4-5.0) gm/dl Globulin (2.5-4.0) gm/dl Albumin/Globulin Ratio (0.9-2) Procalcitonin 0.06 (0-0.5) ng/ml TSH (0.300-4.500) uIu/ml Free T4 (0.61-1.60) ng/dl Urine Color Yellow Urine Appearance Cloudy A (Clear) Urine pH 5.0 (4.5-7.5) Ur Specific [place] 1.027 (1.000-1.030) Urine Protein Trace H (Negative) Urine Glucose (UA) Negative (Negative) Urine Ketones Trace H (Negative) Urine Blood Negative (Negative) Urine Nitrite Negative (Negative) Urine Bilirubin Negative (Negative) Urine Urobilinogen Negative (Negative) Ur Leukocyte Esterase 3+ H (Negative) Urine WBC (Auto) >50 H (0-5) /hpf Urine RBC (Auto) 0-2 (0-2) /hpf U Hyaline Cast (Auto) 11-20 H (0-2) /lpf U Epithel Cells (Auto) 6-10 H (0-2) /hpf Urine Bacteria (Auto) 2+ H (None Seen) Adenovirus (PCR) (NotDetected) B. pertussis DNA (PCR) (NotDetected) B.parapertussis DNA PCR (NotDetected) C. pneumoniae DNA (PCR) (NotDetected) Coronavirus OC43 (PCR) (NotDetected) Coronavirus HKU1 (PCR) (NotDetected) Coronavirus 229E (PCR) (NotDetected) SARS-CoV-2 (PCR) (NotDetected) Coronavirus NL63 (PCR) (NotDetected) Human Metapneumovir PCR (NotDetected) Influenza Type A (PCR) (NotDetected) Influenza Type B (PCR) (NotDetected) M. pneumoniae (PCR) (NotDetected) Parainfluenza 1 (PCR) (NotDetected) Parainfluenza 2 (PCR) (NotDetected) Parainfluenza 3 (PCR) (NotDetected) Parainfluenza 4 (PCR) (NotDetected) RSV (PCR) (NotDetected) Entero/Rhino (PCR) (NotDetected) Blood Type O Positive Blood Type Recheck Antibody Screen NEGATIVE Crossmatch See Detail 07/18/24 07/18/24 Range/Units 23:12 23:04 WBC 16.75 H (4.8-10.8) K/ul RBC 1.94 L (4.20-5.40) M/uL Hgb 5.3 L* (12.0-16.0) g/dl POC Hgb 5.8 L* (12.0-16.0) g/dl Hct 18.5 L* (37.0-47.0) % POC Hct 17 L* (37-47) % MCV 95.4 (80.0-100.0) fL MCH 27.3 (25.0-34.0) pg MCHC 28.6 L (32.0-36.0) g/dL RDW Std Deviation 61.0 H (36.4-46.3) fL RDW Coeff of Valentina 18.2 H (11.5-14.5) % Plt Count 175 (130-400) K/uL MPV 11.4 (9.4-12.4) fL Immature Gran % (Auto) 0.5 % Neut % (Auto) 82.4 % Lymph % (Auto) 9.3 % [place] % (Auto) 7.1 % Eos % (Auto) 0.2 % Baso % (Auto) 0.5 % Neut # (Auto) 13.81 H (1.40-6.50) K/uL Lymph # (Auto) 1.55 (1.20-3.40) K/uL [place] # (Auto) 1.19 H (0.11-0.59) K/uL Eos # (Auto) 0.03 (0.00-0.50) K/uL Baso # (Auto) 0.08 (0.00-0.20) K/uL Immature Gran # (Auto) 0.09 (0.01-0.20) K/uL Polychromasia 2+ POC Sodium 135 (135-144) mmol/L Sodium 134 L (136-145) mmol/L POC Potassium 4.3 (3.3-5.0) mmol/L Potassium 4.2 (3.5-5.1) mmol/L POC Chloride 104 (101-112) mmol/L Chloride 103 (98-107) mmol/L Carbon Dioxide 17 L (21-32) mmol/L POC Total CO2 15 L (24-31) mmol/L Anion Gap 14 H (3-11) POC Anion Gap 22.0 (16-25) mmol/L POC BUN 23 H (7-18) mg/dl BUN 24 H (6-23) mg/dl Creatinine 0.86 (0.6-1.2) mg/dl POC Creatinine 0.9 (0.6-1.3) mg/dl Est Cr Clr Drug Dosing 46.8 ml/min Est GFR ( Amer) 76.6 ml/min Est GFR (Non-Af Amer) 66.1 ml/min BUN/Creatinine Ratio 27.9 H (10-20) Glucose 172 H (70-99(Fasting)) mg/dl POC Glucose (70-99) mg/dl POC Glucose (other) 171 H (70-99) mg/dl Lactate 8.2 H* (0.4-2.0) mmol/L Calcium 8.7 (8.6-10.3) mg/dl POC Ioniz Calcium Edward 1.18 (1.12-1.32) mmol/l Magnesium 1.0 L (1.7-2.4) mg/dl Total Bilirubin 0.4 (0.2-1.0) mg/dl AST 14 (13-39) U/L ALT 10 (7-52) U/L Alkaline Phosphatase 46 (34-104) U/L Total Creatine Kinase 41 (26-192) U/L Troponin I High Sens 7.9 (0-14) pg/ml Total Protein 5.9 L (6.0-8.3) gm/dl Albumin 3.7 (3.4-5.0) gm/dl Globulin 2.2 L (2.5-4.0) gm/dl Albumin/Globulin Ratio 1.7 (0.9-2) Procalcitonin (0-0.5) ng/ml TSH 41.701 H (0.300-4.500) uIu/ml Free T4 0.68 (0.61-1.60) ng/dl Urine Color Urine Appearance (Clear) Urine pH (4.5-7.5) Ur Specific [place] (1.000-1.030) Urine Protein (Negative) Urine Glucose (UA) (Negative) Urine Ketones (Negative) Urine Blood (Negative) Urine Nitrite (Negative) Urine Bilirubin (Negative) Urine Urobilinogen (Negative) Ur Leukocyte Esterase (Negative) Urine WBC (Auto) (0-5) /hpf Urine RBC (Auto) (0-2) /hpf U Hyaline Cast (Auto) (0-2) /lpf U Epithel Cells (Auto) (0-2) /hpf Urine Bacteria (Auto) (None Seen) Adenovirus (PCR) Not Detected (NotDetected) B. pertussis DNA (PCR) Not Detected (NotDetected) B.parapertussis DNA PCR Not Detected (NotDetected) C. pneumoniae DNA (PCR) Not Detected (NotDetected) Coronavirus OC43 (PCR) Not Detected (NotDetected) Coronavirus HKU1 (PCR) Not Detected (NotDetected) Coronavirus 229E (PCR) Not Detected (NotDetected) SARS-CoV-2 (PCR) Not Detected (NotDetected) Coronavirus NL63 (PCR) Not Detected (NotDetected) Human Metapneumovir PCR Not Detected (NotDetected) Influenza Type A (PCR) Not Detected (NotDetected) Influenza Type B (PCR) Not Detected (NotDetected) M. pneumoniae (PCR) Not Detected (NotDetected) Parainfluenza 1 (PCR) Not Detected (NotDetected) Parainfluenza 2 (PCR) Not Detected (NotDetected) Parainfluenza 3 (PCR) Not Detected (NotDetected) Parainfluenza 4 (PCR) Not Detected (NotDetected) RSV (PCR) Not Detected (NotDetected) Entero/Rhino (PCR) Not Detected (NotDetected) Blood Type Blood Type Recheck Antibody Screen Crossmatch PG Care Time/CCT Total # of Minutes Spent Total Time Spent with Patient: Total time spent is greater than 50% in coordination of care (as documented) at patient's floor/unit and/or counseling patient: Coding Level of Care Code 07252 INT INP/OBS CARE 2/55MIN Diagnoses Anemia D64.9
[2024-07-19] MEDS: CEFEPIME 2,000 MG in SYRINGE 0 ML IV SCH (12:05)
[2024-07-19 12:44] LABS: Base Excess VBG -2.4 mEq/L; HCO3 VBG 23 mmol/L; Oxygen Saturation VBG < 60.0 %; PCO2 VBG 42 mmHg (38-50); pH VBG 7.35 (7.36-7.41)
--- NOTE | 2024-07-19 12:54 | Hospitalist Progress Note ---
Date of Service July 19, 2024 Assessment & Plan (1) Encephalopathy: Plan: Acute UTI Possible sepsis Metabolic encephalopathy Possible upper GI bleed Possible Acute blood loss anemia Patient presented with severe weakness over the course of last 2 weeks Patient was brought by her daughter for concern of confusion Found to have leukocytosis on admission with elevated lactate Hemoglobin5.8 g/dL (11.1 on 06/09/2024) Urinalysis suggestive of infection Status post 3 packed unit of RBCs. Continue on Protonix twice daily. Patient to undergo endoscopy by GI today. Hold antiplatelet and Eliquis; to be resumed after cleared by GI. Continue on cefepime; will follow-up on urine culture. Blood culture ordered. PT OT evaluation after medically stable Chronic conditions; Hypothyroidism: TSH significantly elevated with low normal free T4. Levothyroxine dose increased to 150 mcg daily. Plan to recheck TSH after 6 weeks. Atrial fibrillationEliquis currently on hold; EKG on admission showed normal sinus rhythm History of peripheral vascular diseaseaspirin on hold, continue statin hypertension, currently stable - continue metoprolol hyperlipidemia, on statin Rx thyroid cancer status post surgery DM2 on oral medications, well-controlled as of recent hemoglobin A1c of 7 last December 2023 right breast cancer status post surgery/chemo radiation chronic lumbar back pain secondary to thoracolumbar compression fractures DVT prophylaxis. SCDs re: GI bleed Full code Time spent evaluating patient, direct bedside care, chart review, placing orde rs, interpretation of diagnostic studies, discussion with consultants, patient, and family members, as well as other required patient management activities is 50 minutes Please note the above document was generated using voice recognition software. It may contain grammatical, syntax or spelling errors. Any formal questions or concerns about the content, text or information contained within the body of this dictation should be directly addressed to the provider for clarification Admission and Anticipated Discharge Date Admission Date: July 19, 2024 Subjective Patient seen and examined at bedside She is comfortable; not in distress She is getting her third unit of packed RBC Review of Systems Review of Systems: All systems reviewed & are unremarkable except as noted in Subjective Physical Exam Physical Exam: GENERAL: Alert oriented x 3; not in distress. SKIN: Pallor, warm HEENT: Bespectacled, pale palpebral conjunctivae, no ptosis, dry buccal mucosa NECK : Supple, no tenderness CHEST : CTA, no tenderness HEART : RRR, systolic murmur ABDOMEN: Some distention, minimal epigastric tenderness EXTREMITIES : Minimal LE swelling, no LE tenderness, no other conspicuous deformities noted NEUROLOGIC : Grossly moves all extremities Results & Data Results & Data Vital Signs (Past 12 Hours) Vital Signs Temp Pulse Pulse Resp BP BP Pulse Ox 07/19/24 11:05 68 16 122/64 100 07/19/24 10:06 36.6 C 57 L 16 115/62 96 07/19/24 09:36 36.6 C 63 20 126/65 97 07/19/24 09:21 36.6 C 63 16 118/65 99 07/19/24 09:10 36.6 C 60 16 113/63 99 07/19/24 09:06 36.6 C 60 16 107/61 96 07/19/24 08:30 36.9 C 79 16 138/69 99 07/19/24 08:09 36.9 C 74 16 106/58 L 99 07/19/24 07:09 36.5 C 76 16 112/64 100 07/19/24 06:39 36.5 C 70 16 121/64 99 07/19/24 06:24 36.4 C L 75 18 119/77 96 07/19/24 06:24 36.5 C 68 16 118/63 100 07/19/24 06:08 36.6 C 75 16 116/63 97 07/19/24 03:52 36.7 C 75 16 126/63 100 07/19/24 03:48 36.6 C 75 16 143/61 H 99 07/19/24 03:39 73 07/19/24 03:38 07/19/24 03:26 36.7 C 77 16 121/58 L 100 07/19/24 03:22 36.6 C 77 16 121/58 L 100 07/19/24 02:22 36.7 C 79 14 134/71 100 07/19/24 01:52 79 14 148/74 H 99 07/19/24 01:51 36.6 C 79 14 148/74 H 99 07/19/24 01:37 36.9 C 78 16 137/68 100 07/19/24 01:22 77 14 136/61 100 07/19/24 01:18 36.7 C 73 16 136/81 99 O2 Del Method O2 Flow Rate 07/19/24 11:05 07/19/24 10:06 07/19/24 09:36 07/19/24 09:21 07/19/24 09:10 07/19/24 09:06 07/19/24 08:30 07/19/24 08:09 07/19/24 07:09 07/19/24 06:39 07/19/24 06:24 0 07/19/24 06:24 07/19/24 06:08 07/19/24 03:52 07/19/24 03:48 Room Air 07/19/24 03:39 07/19/24 03:38 Room Air 07/19/24 03:26 Room Air 07/19/24 03:22 07/19/24 02:22 07/19/24 01:52 07/19/24 01:51 07/19/24 01:37 07/19/24 01:22 Room Air 07/19/24 01:18
[2024-07-19 13:04] LABS: BUN Creatinine Ratio 25.4 (10-20); Calcium 8.1 mg/dl (8.6-10.3); Creatinine Clr Calc Pharmacy 61.8 ml/min; Est GFR (African American) 96.6 ml/min; Est GFR (Non-African American) 83.3 ml/min; Magnesium 1.8 mg/dl (1.7-2.4); Potassium 4.4 mmol/L (3.5-5.1)
[2024-07-19 13:58] LABS: Hematocrit (blood only) 25.1 % (37.0-47.0); Hemoglobin 8.3 g/dl (12.0-16.0)
[2024-07-19 13:59] LABS: Basophils # (auto) 0.05 K/uL (0.00-0.20); Basophils % (auto) 0.5 %; Eosinophils # (auto) 0.01 K/uL (0.00-0.50); Eosinophils % (auto) 0.1 %; Hemoglobin 8.4 g/dl (12.0-16.0); Immature Granulocytes # (auto) 0.07 K/uL (0.01-0.20); Immature Granulocytes % (auto) 0.7 %; Lymphocytes # (auto) 1.26 K/uL (1.20-3.40); Mean Corpuscular Hemoglobin 28.8 pg (25.0-34.0); Mean Corpuscular Hgb Conc 32.3 g/dL (32.0-36.0); Mean Platelet Volume 11.6 fL (9.4-12.4); Monocytes # (auto) 0.79 K/uL (0.11-0.59); Monocytes % (auto) 7.5 %; Neutrophils % (auto) 79.2 %; Platelet Count 139 K/uL (130-400); RDW Coefficient of Variation 17.2 % (11.5-14.5); RDW Standard Deviation 54.7 fL (36.4-46.3); Red Blood Count 2.92 M/uL (4.20-5.40); White Blood Count 10.48 K/ul (4.8-10.8)
[2024-07-19 14:32] LABS: PO2 VBG < 20 mmHg
--- NOTE | 2024-07-19 15:16 | Anesthesiology Consultation ---
Date of Service July 19, 2024 Assessment & Plan (1) Encounter for pre-operative examination: Chart Review Chart Review: Acceptable Risk for Surgery and Patient NOT seen in Pre Admission Testing Consults Requested none History Surgery Operation Date: 07/19/24 16:45 Proposed Procedures p Esophagogastroduodenoscopy Brett West MD Height/Weight Height: 5 ft 3 in Weight: 64.41 kg Allergies Allergy/AdvReac Type Severity Reaction Status Date / Time Penicillins Allergy Intermediate Hives Verified 07/19/24 00:26 Sulfa (Sulfonamide AdvReac Severe SEVERE Verified 07/19/24 00:26 Antibiotics) NAUSEA Medications Home Medications Medication Instructions Recorded Confirmed Last Taken apixaban 5 mg tablet (Eliquis) 5 mg PO AMHS 12/13/23 07/19/24 07/18/24 lorazepam 0.5 mg tablet (Ativan) 0.5 mg PO Q8 PRN Anxiety 12/13/23 07/19/24 Unknown metformin 500 mg tablet 1,000 mg PO BIDM 12/13/23 07/19/24 07/18/24 pantoprazole 40 mg tablet,delayed 40 mg PO QAM 12/13/23 07/19/24 07/18/24 release semaglutide 1 mg/dose (4 mg/3 mL) 1 mg subcut WK 12/13/23 07/19/24 07/12/24 subcutaneous pen injector (Ozempic) aspirin 81 mg tablet,delayed 81 mg PO QAM 02/01/24 07/19/24 07/18/24 release atorvastatin 40 mg tablet 40 mg PO QAM 02/01/24 07/19/24 02/03/24 levothyroxine 125 mcg tablet 125 mcg PO DAILYBB 02/01/24 07/19/24 07/18/24 metoprolol tartrate 25 mg tablet 12.5 mg PO AMHS 02/01/24 07/19/24 07/18/24 cholecalciferol (vitamin D3) 125 125 mcg PO QAM #30 tabs 02/06/24 07/19/24 07/18/24 mcg (5,000 unit) tablet ferrous sulfate 325 mg (65 mg 325 mg PO QAM #30 tabs 02/06/24 07/19/24 07/18/24 iron) tablet,delayed release verapamil 40 mg tablet 40 mg PO AMHS #60 tabs 02/06/24 07/19/24 07/18/24 acetaminophen 650 mg 650 mg PO TID ud 03/11/24 07/19/24 07/18/24 tablet,extended release cyanocobalamin (vitamin B-12) 1,000 mcg PO QAM 03/11/24 07/19/24 07/18/24 1,000 mcg tablet,extended release (Vitamin B-12 ER) sertraline 25 mg tablet 25 mg PO QAM 03/11/24 07/19/24 07/18/24 lidocaine 4 % topical patch 1 patch topical DAILY #15 ea 03/16/24 07/19/24 07/18/24 calcitonin (salmon) 200 1 spray intranasal (ALT) QA 07/19/24 07/19/24 07/18/24 unit/actuation nasal spray nystatin 100,000 unit/gram topical 1 applic topical BID 07/19/24 07/19/24 07/18/24 powder oxycodone 5 mg tablet 5 mg PO TID pain 07/19/24 07/19/24 Unknown Active Medications Generic Name Dose Route Start Last Admin Trade Name Freq PRN Reason Stop Dose Admin Acetaminophen 650 mg 07/19/24 02:08 07/19/24 02:23 Acetaminophen 325 Mg Tab PO 08/18/24 02:07 650 mg QID PRN Administration pain/fever Atorvastatin Calcium 40 mg 07/19/24 09:00 07/19/24 08:13 Atorvastatin 40 Mg Tab PO 08/18/24 08:59 40 mg QAM BRENNEN Administration Cyanocobalamin 1,000 mcg 07/19/24 09:00 07/19/24 08:13 Cyanocobalamin (B-12) 500 Mcg Tablet PO 08/18/24 08:59 1,000 mcg QAM BRENNEN Administration Pantoprazole Sodium 40 mg/ 100 mls @ 20 mls/hr 07/19/24 02:00 07/19/24 15:34 Dextrose IV 08/18/24 01:59 Infused Q5H BRENNEN Infusion 8 MG/HR Cefepime HCl 2,000 mg/ Syringe 20 mls @ 5 mls/min 07/19/24 12:00 07/19/24 12:05 IV 07/29/24 11:59 5 mls/min Q12H BRENNEN Administration Protocol Insulin Aspart 0 units 07/19/24 06:00 07/19/24 12:04 Insulin Aspart Per Unit Charge SC 08/18/24 05:59 1 units Q6 BRENNEN Administration Levothyroxine Sodium 150 mcg 07/19/24 06:30 07/19/24 07:27 Levothyroxine Sodium 150 Mcg Tablet PO 08/18/24 06:29 150 mcg DAILYBB BRENNEN Administration Metoprolol Tartrate 12.5 mg 07/19/24 09:00 07/19/24 08:13 Metoprolol Tartrate 25 Mg Tab PO 08/18/24 08:59 12.5 mg AMHS BRENNEN Administration Sertraline HCl 25 mg 07/19/24 09:00 07/19/24 08:12 Sertraline Hcl 50 Mg Tablet PO 08/18/24 08:59 25 mg QAM BRENNEN Administration Verapamil HCl 40 mg 07/19/24 09:00 07/19/24 08:13 Verapamil Hcl 40 Mg Tab PO 08/18/24 08:59 40 mg AMHS BRENNEN Administration Past Medical History Medical History (Updated 07/19/24 @ 15:16 by Vincent Suazo MD) Encounter for pre-operative examination Compression fracture of lumbosacral spine DAVIS (obstructive sleep apnea) Aortic stenosis CVA (cerebral vascular accident) Anemia Encephalopathy Persistent atrial fibrillation Diabetes mellitus Acute UTI History of breast cancer Past Family History Family History Other Breast cancer Diabetes Hypertension Past Surgical History Surgical History Hx of cholecystectomy H/O section H/O gastric bypass Left ulnar fracture s/p surgical repair 01/02/24 at [facility] Social History Smoking Status: Never smoker Hx Alcohol Use: No Hx Substance Use: No substance use type: does not use Physical Exam Vital Signs Last Vital Signs Temp 36.6 C 07/19/24 15:09 Pulse 72 07/19/24 15:09 Resp 16 07/19/24 15:09 BP 137/57 L 07/19/24 15:09 Pulse Ox 97 07/19/24 15:09 O2 Del Method Room Air 07/19/24 15:09 O2 Flow Rate 0 07/19/24 06:24 Testing Laboratory Results 07/19/24 12:36 07/19/24 12:32 Urine Color Yellow 07/18/24 23:16 Urine Appearance Cloudy (Clear) A 07/18/24 23:16 Urine pH 5.0 (4.5-7.5) 07/18/24 23:16 Ur Specific Huffman 1.027 (1.000-1.030) 07/18/24 23:16 Urine Protein Trace (Negative) H 07/18/24 23:16 Urine Glucose (UA) Negative (Negative) 07/18/24 23:16 Urine Ketones Trace (Negative) H 07/18/24 23:16 Urine Nitrite Negative (Negative) 07/18/24 23:16 Ur Leukocyte Esterase 3+ (Negative) H 07/18/24 23:16 Urine WBC (Auto) >50 /hpf (0-5) H 07/18/24 23:16 Urine RBC (Auto) 0-2 /hpf (0-2) 07/18/24 23:16 U Hyaline Cast (Auto) 11-20 /lpf (0-2) H 07/18/24 23:16 U Epithel Cells (Auto) 6-10 /hpf (0-2) H 07/18/24 23:16 Urine Bacteria (Auto) 2+ (None Seen) H 07/18/24 23:16 Blood Type O Positive 07/18/24 23:21 Antibody Screen NEGATIVE 07/18/24 23:21 07/19/24 07/19/24 11:19 07:25 POC Glucose 151 H 132 H Hgb 5.8 on 07/18/24 at 2312. Hgb 8.3 at 07/19/24 at 1236 s/p pRBC replacement. Electrocardiogram Date: 07/19/24 DICTATED BY: Stacy Roman, DO Test Reason : Blood Pressure : */* mmHG Vent. Rate : 77 BPM Atrial Rate : 77 BPM P-R Int : 146 ms QRS Dur : 92 ms QT Int : 378 ms P-R-T Axes : 90 11 76 degrees QTcB Int : 427 ms Sinus rhythm with occasional Premature ventricular complexes Cannot rule out Anterior infarct , age undetermined Diffuse T wave abnormality Abnormal ECG No previous ECGs available Confirmed by Stacy Roman (Kev) on 07/19/2024 7:54:09 AM Chest X-Ray Date: 07/18/24 XR chest 1V portable HISTORY: 74 years-old Female weakness COMPARISON: 12/13/2023 TECHNIQUE: AP view of the chest FINDINGS: Cardiac silhouette is mildly enlarged. Atherosclerosis of the aorta. No pneumothorax, pleural effusion or airspace consolidation. Right shoulder arthroplasty. Degenerative changes of the spine and left shoulder. Calcified right hilar lymph nodes. Right upper abdominal surgical clips. Small hiatal hernia. IMPRESSION: No acute process. Echocardiogram Date: 02/04/24 LV is normal in size Mild LVH LV wall motion is normal EF 60-65% Grade 2 DD Mild to moderate MR Mild LA is moderately dilated.
--- NOTE | 2024-07-19 16:00 | GI REPORT ---
[facility] Patient: JOSE HUGHES : 1950 Sex at : Female Age: 74 Years Procedure: Upper GI endoscopy Date: 07/19/2024 Attending Physician: Paco West MD Referring MD: Edvin Diamond Md Indications: - Recent gastrointestinal bleeding - Iron deficiency anemia Medications: - Monitored Anesthesia Care Complications: - No immediate complications. Estimated Blood Loss: - Estimated blood loss: None. Procedure: - The egd scope was introduced through the mouth and advanced to the jejunum. - The upper GI endoscopy was accomplished with ease. - The patient tolerated the procedure well. Findings: - The examined esophagus was normal. No evidence of esophagitis or Coleman's mucosa. - The Z-line was regular and was found 36 cm from the incisors. - Evidence of a gastric bypass was found. This was characterized by healthy appearing mucosa. Status post gastric bypass with Genet-en-Y. The gastric remnant appeared normal without evidence of marginal ulcer. There was no bleeding. There was no blood in the gastric remnant. - The jejunum was normal Impression: - Normal esophagus. - No evidence of esophagitis or Coleman's mucosa. - Z-line regular, 36 cm from the incisors. - A gastric bypass was found, characterized by healthy appearing mucosa. - Status post gastric bypass with Genet-en-Y. The gastric remnant appeared normal without evidence of marginal ulcer. There was no bleeding. There was no blood in the gastric remnant. - The jejunum was normal - No specimens collected. Recommendation: - Advance diet. Continue proton pump inhibitor. Outpatient follow-up in the GI office was arranged. Procedure Code(s): - 00618, Esophagogastroduodenoscopy, flexible, transoral; diagnostic, including collection of specimen(s) by brushing or washing, when performed (separate procedure) Diagnosis Code(s): - K92.2, Gastrointestinal hemorrhage, unspecified - D50.9, Iron deficiency anemia, unspecified - Z98.84, Bariatric surgery status CPT(R) - 202 copyright [employer]. All Rights Reserved. The CPT codes, CCI edits and ICD codes generated are intended as suggestions and were generated based on input data. These codes are preliminary and upon respiratory supervisor review may be revised to meet current compliance and payer requirements. The provider is responsible for the final determination of appropriate codes, and modifiers. Paco West M.D. , This document has been electronically signed. Note Initiated:07/19/2024 Note Completed:07/19/2024 3:59 PM \\[id number]
[2024-07-19] MEDS ORDERED: Nursing to Pharmacy Communication SCH (16:15)
[2024-07-19] MEDS: PROPOFOL IV EMULSION 10 MG/ML 20 ML VIAL IV ONE (16:49)
[2024-07-19] MEDS: LIDOCAINE 2% 2 ML VIAL/AMP(20MG/ML) INFIL ONE (16:49)
--- NOTE | 2024-07-19 16:54 | Anesthesiology Progress Note ---
Date of Service July 19, 2024 Anesthesia Post Procedure Vital Signs Vital Signs: Temp Pulse Pulse Resp BP BP Pulse Ox 07/19/24 16:26 68 20 140/71 100 07/19/24 16:15 69 18 126/62 98 07/19/24 15:58 71 16 107/53 L 98 07/19/24 15:09 36.6 C 72 16 137/57 L 97 07/19/24 11:05 68 16 122/64 100 07/19/24 10:06 36.6 C 57 L 16 115/62 96 07/19/24 09:36 36.6 C 63 20 126/65 97 07/19/24 09:21 36.6 C 63 16 118/65 99 07/19/24 09:10 36.6 C 60 16 113/63 99 07/19/24 09:06 36.6 C 60 16 107/61 96 07/19/24 08:30 36.9 C 79 16 138/69 99 07/19/24 08:09 36.9 C 74 16 106/58 L 99 07/19/24 07:09 36.5 C 76 16 112/64 100 07/19/24 06:39 36.5 C 70 16 121/64 99 07/19/24 06:24 36.4 C L 75 18 119/77 96 07/19/24 06:24 36.5 C 68 16 118/63 100 07/19/24 06:08 36.6 C 75 16 116/63 97 07/19/24 03:52 36.7 C 75 16 126/63 100 07/19/24 03:48 36.6 C 75 16 143/61 H 99 07/19/24 03:39 73 07/19/24 03:38 07/19/24 03:26 36.7 C 77 16 121/58 L 100 07/19/24 03:22 36.6 C 77 16 121/58 L 100 07/19/24 02:22 36.7 C 79 14 134/71 100 07/19/24 01:52 79 14 148/74 H 99 07/19/24 01:51 36.6 C 79 14 148/74 H 99 07/19/24 01:37 36.9 C 78 16 137/68 100 07/19/24 01:22 77 14 136/61 100 07/19/24 01:18 36.7 C 73 16 136/81 99 07/18/24 23:40 74 18 129/64 100 07/18/24 23:29 81 07/18/24 23:02 93 07/18/24 22:40 36.3 C L 69 18 103/54 L 97 O2 Del Method O2 Flow Rate 07/19/24 16:26 Room Air 07/19/24 16:15 Room Air 07/19/24 15:58 Room Air 07/19/24 15:09 Room Air 07/19/24 11:05 07/19/24 10:06 07/19/24 09:36 07/19/24 09:21 07/19/24 09:10 07/19/24 09:06 07/19/24 08:30 07/19/24 08:09 07/19/24 07:09 07/19/24 06:39 07/19/24 06:24 0 07/19/24 06:24 07/19/24 06:08 07/19/24 03:52 07/19/24 03:48 Room Air 07/19/24 03:39 07/19/24 03:38 Room Air 07/19/24 03:26 Room Air 07/19/24 03:22 07/19/24 02:22 07/19/24 01:52 07/19/24 01:51 07/19/24 01:37 07/19/24 01:22 Room Air 07/19/24 01:18 07/18/24 23:40 07/18/24 23:29 07/18/24 23:02 Room Air 07/18/24 22:40 Room Air Pain Intensity Back: Pain Intensity: 4 Transfer of Care Handoff Completed per policy Notes Mental Status: alert / awake / arousable and participated in evaluation Patient Amnestic to Procedure: Yes Nausea / Vomiting: adequately controlled Pain: adequately controlled Airway Patency, RR, SpO2: stable & adequate BP & HR: stable & adequate Hydration State: stable & adequate Anesthetic Complications: no major complications apparent and Pt Satisfied with anesthetic care
[2024-07-19 21:59] LABS: Basophils # (auto) 0.04 K/uL (0.00-0.20); Basophils % (auto) 0.5 %; Eosinophils # (auto) 0.01 K/uL (0.00-0.50); Eosinophils % (auto) 0.1 %; Hemoglobin 9.4 g/dl (12.0-16.0); Immature Granulocytes # (auto) 0.04 K/uL (0.01-0.20); Immature Granulocytes % (auto) 0.5 %; Lymphocytes # (auto) 0.74 K/uL (1.20-3.40); Mean Corpuscular Hemoglobin 27.9 pg (25.0-34.0); Mean Corpuscular Hgb Conc 32.4 g/dL (32.0-36.0); Mean Corpuscular Volume 86.1 fL (80.0-100.0); Mean Platelet Volume 11.1 fL (9.4-12.4); Monocytes # (auto) 0.54 K/uL (0.11-0.59); Monocytes % (auto) 6.5 %; Neutrophils # (auto) 6.89 K/uL (1.40-6.50); Neutrophils % (auto) 83.4 %; Platelet Count 146 K/uL (130-400); RDW Coefficient of Variation 17.6 % (11.5-14.5); RDW Standard Deviation 53.6 fL (36.4-46.3); Red Blood Count 3.37 M/uL (4.20-5.40); White Blood Count 8.26 K/ul (4.8-10.8)
[2024-07-20] MEDS: oxyCODONE HCL IR 5 MG TAB (IMMEDIATE RELEASE) PO PRN (01:44)
[2024-07-20 07:00] LABS: BUN Creatinine Ratio 23.7 (10-20); Calcium 7.7 mg/dl (8.6-10.3); Est GFR (African American) 103.9 ml/min; Est GFR (Non-African American) 89.7 ml/min
[2024-07-20 07:22] LABS: Hematocrit (blood only) 23.4 % (37.0-47.0); Hemoglobin 7.6 g/dl (12.0-16.0); Mean Corpuscular Hemoglobin 28.3 pg (25.0-34.0); Mean Corpuscular Hgb Conc 32.5 g/dL (32.0-36.0); Mean Platelet Volume 11.4 fL (9.4-12.4); Platelet Count 128 K/uL (130-400); RDW Coefficient of Variation 17.6 % (11.5-14.5); RDW Standard Deviation 53.7 fL (36.4-46.3); Red Blood Count 2.69 M/uL (4.20-5.40)
[2024-07-20 07:42] LABS: Basophils # (auto) 0.03 K/uL (0.00-0.20); Basophils % (auto) 0.3 %; Eosinophils # (auto) 0.03 K/uL (0.00-0.50); Eosinophils % (auto) 0.3 %; Immature Granulocytes # (auto) 0.05 K/uL (0.01-0.20); Immature Granulocytes % (auto) 0.5 %; Lymphocytes # (auto) 1.36 K/uL (1.20-3.40); Lymphocytes % (auto) 12.6 %; Monocytes # (auto) 0.89 K/uL (0.11-0.59); Monocytes % (auto) 8.2 %; Neutrophils # (auto) 8.44 K/uL (1.40-6.50); Neutrophils % (auto) 78.1 %; Polychromasia 1+
[2024-07-20] MEDS: PANTOprazole 40 MG TAB PO SCH (08:04)
--- NOTE | 2024-07-20 12:38 | Hospitalist Progress Note ---
Date of Service July 20, 2024 Assessment & Plan (1) Encephalopathy: Plan: Acute UTI Possible sepsis Metabolic encephalopathy Possible upper GI bleed Possible Acute blood loss anemia Patient presented with severe weakness over the course of last 2 weeks Patient was brought by her daughter for concern of confusion Found to have leukocytosis on admission with elevated lactate Hemoglobin5.8 g/dL (11.1 on 06/09/2024) Urinalysis suggestive of infection Status post 3 packed unit of RBCs. Hemoglobin today of 7.6 g/dL Endoscopy done on 07/19; no source of active bleeding Continue on Protonix twice daily. Hold antiplatelet and Eliquis. Continue on cefepime; will follow-up on urine culture. Follow up on blood culture PT OT evaluation after medically stable Chronic conditions; Hypothyroidism: TSH significantly elevated with low normal free T4. Levothyroxine dose increased to 150 mcg daily. Plan to recheck TSH after 6 weeks. Atrial fibrillationEliquis currently on hold; EKG on admission showed normal sinus rhythm History of peripheral vascular diseaseaspirin on hold, continue statin hypertension, currently stable - continue metoprolol hyperlipidemia, on statin Rx thyroid cancer status post surgery DM2 on oral medications, well-controlled as of recent hemoglobin A1c of 7 last December 2023 right breast cancer status post surgery/chemo radiation chronic lumbar back pain secondary to thoracolumbar compression fractures DVT prophylaxis. SCDs re: GI bleed Full code Dispositionpatient continues to be hospitalized for severe anemia, possible UTI. Updated her daughter over the phone. Answer questions/queries. She want GI to discuss further plans with her. GI- PA updated. Time spent evaluating patient, direct bedside care, chart review, placing orders, interpretation of diagnostic studies, discussion with consultants, patient, and family members, as well as other required patient management activities is 50 minutes Please note the above document was generated using voice recognition software. It may contain grammatical, syntax or spelling errors. Any formal questions or concerns about the content, text or information contained within the body of this dictation should be directly addressed to the provider for clarification Admission and Anticipated Discharge Date Admission Date: July 19, 2024 Subjective Patient seen and examined at bedside. She is comfortable; not in distress She denies fever, chills, chest pain or abdominal pain or urinary symptoms Review of Systems Review of Systems: All systems reviewed & are unremarkable except as noted in Subjective Physical Exam Physical Exam: GENERAL: Alert oriented x 3; not in distress. SKIN: Pallor, warm HEENT: Bespectacled, pale palpebral conjunctivae, no ptosis, dry buccal mucosa NECK : Supple, no tenderness CHEST : CTA, no tenderness HEART : RRR, systolic murmur ABDOMEN: Soft, nontender. EXTREMITIES : Minimal LE swelling, no LE tenderness, no other conspicuous deformities noted NEUROLOGIC : Grossly moves all extremities Results & Data Results & Data Vital Signs (Past 12 Hours) Vital Signs Temp Pulse Pulse Resp BP Pulse Ox O2 Del Method 07/20/24 12:26 36.6 C 63 18 93/55 L 100 Room Air 07/20/24 09:11 65 07/20/24 09:05 Room Air 07/20/24 08:01 37.1 C 79 16 123/65 98 Room Air 07/20/24 03:18 37.0 C 73 18 130/58 L 94 Room Air
[2024-07-20] MEDS: LACTATED RINGER'S 500 ML IV ONE (13:02)
[2024-07-20 19:56] LABS: Hematocrit (blood only) 24.3 % (37.0-47.0); Hemoglobin 7.7 g/dl (12.0-16.0); Mean Corpuscular Hemoglobin 28.1 pg (25.0-34.0); Mean Corpuscular Hgb Conc 31.7 g/dL (32.0-36.0); Mean Corpuscular Volume 88.7 fL (80.0-100.0); Mean Platelet Volume 11.4 fL (9.4-12.4); Platelet Count 139 K/uL (130-400); RDW Coefficient of Variation 18.1 % (11.5-14.5); RDW Standard Deviation 56.3 fL (36.4-46.3); Red Blood Count 2.74 M/uL (4.20-5.40)
[2024-07-20 20:06] LABS: Basophils # (auto) 0.03 K/uL (0.00-0.20); Basophils % (auto) 0.4 %; Eosinophils # (auto) 0.05 K/uL (0.00-0.50); Eosinophils % (auto) 0.6 %; Immature Granulocytes # (auto) 0.03 K/uL (0.01-0.20); Immature Granulocytes % (auto) 0.4 %; Lymphocytes # (auto) 1.04 K/uL (1.20-3.40); Lymphocytes % (auto) 12.8 %; Monocytes % (auto) 7.4 %; Neutrophils # (auto) 6.35 K/uL (1.40-6.50); Neutrophils % (auto) 78.4 %; Polychromasia 1+
[2024-07-21 06:21] LABS: Basophils # (auto) 0.04 K/uL (0.00-0.20); Basophils % (auto) 0.5 %; Eosinophils # (auto) 0.08 K/uL (0.00-0.50); Hematocrit (blood only) 24.2 % (37.0-47.0); Hemoglobin 7.8 g/dl (12.0-16.0); Immature Granulocytes # (auto) 0.03 K/uL (0.01-0.20); Immature Granulocytes % (auto) 0.4 %; Lymphocytes # (auto) 1.37 K/uL (1.20-3.40); Lymphocytes % (auto) 16.8 %; Mean Corpuscular Hemoglobin 28.3 pg (25.0-34.0); Mean Corpuscular Hgb Conc 32.2 g/dL (32.0-36.0); Mean Corpuscular Volume 87.7 fL (80.0-100.0); Monocytes # (auto) 0.66 K/uL (0.11-0.59); Monocytes % (auto) 8.1 %; Neutrophils # (auto) 5.96 K/uL (1.40-6.50); Neutrophils % (auto) 73.2 %; Platelet Count 143 K/uL (130-400); RDW Coefficient of Variation 18.2 % (11.5-14.5); RDW Standard Deviation 55.9 fL (36.4-46.3); Red Blood Count 2.76 M/uL (4.20-5.40); White Blood Count 8.14 K/ul (4.8-10.8)
[2024-07-21 06:50] LABS: Polychromasia 1+
[2024-07-21 06:57] LABS: Ferritin 34.7 ng/ml (8-388)
[2024-07-21] MEDS: IRON SUCROSE 200 MG in 0.9 % SODIUM CHLORIDE 100 ML IV ONE (09:21)
--- NOTE | 2024-07-21 14:38 | Communication Note ---
Date of Service: July 21, 2024 GI was asked to perform inpatient colonoscopy while her anticoagulation is held. Please continue liquid diet today. Start Golytely 4L now. NPO aftermidnight. Colonoscopy 07/22/24. We appreciate assistance in the management of any serological abnormality and corrections to include: hemoglobin >7, INR <2, platelets >50,000, potassium levels >3.5 but <5.3, and sodium levels within 5 points of the reference range prior to endoscopic evaluation. Thank you for allowing us to participate in the care of this patient. Please call with any acute changes, questions or concerns. Please see addendum below with additional recommendation from my supervising physician.
[2024-07-21] MEDS: SODIUM CHLORIDE 0.9% 500 ML IV SCH (15:52)
[2024-07-21] MEDS: LAVAGE SOLUTION 4000ML PO ONE (17:07)
--- NOTE | 2024-07-21 17:26 | Hospitalist Progress Note ---
Date of Service July 21, 2024 Assessment & Plan (1) Encephalopathy: Plan: Acute UTI Possible sepsis Metabolic encephalopathy -- Blood cultures negative to date --Urine culture not contributory --De-escalate IV cefepime to Rocephin --Mental status seem to be back to baseline --Reorient frequently to minimize delirium Possible upper GI bleed Possible Acute blood loss anemia Iron deficiency anemia --S/P 3 units PRBC --S/P EGD:Normal esophagus. No evidence of esophagitis or Coleman's mucosa. Z- line regular, 36 cm from the incisors. A gastric bypass was found, characterized by healthy appearing mucosa. Status post gastric bypass with Genet-en-Y. The gastric remnant appeared normal without evidence of marginal ulcer. There was no bleeding. There was no blood in the gastric remnant. The jejunum was normal. No specimens collected. -- Continue Protonix --Aspirin, Eliquis on hold --Received IV Venofer --Colon prep for colonoscopy tomorrow HOSPITAL PHARMACIST after midnight Appreciate GI input Other Chronic conditions: Hypothyroidism: TSH significantly elevated with low normal free T4. Levothyroxine dose increased to 150 mcg daily. Plan to recheck TSH after 6 weeks. Atrial fibrillationEliquis currently on hold; continue metoprolol H/O Peripheral vascular diseaseaspirin on hold, continue statin Hypertension, currently stable - continue metoprolol, Monitor BP Hyperlipidemia, on statin Rx Thyroid cancer status S/P surgery DM II: on oral medications, well-controlled as of recent hemoglobin A1c of 7 last December 2023. Continue insulin while hospitalized Right breast cancer S/P surgery/chemo radiation Chronic lumbar back pain secondary to thoracolumbar compression fractures DVT Px: SCDs re: GI bleed CODE STATUS Full code Disposition PT OT prior to discharge Admission and Anticipated Discharge Date Admission Date: July 19, 2024 Subjective Patient is seen and examined at bedside Offers no new complaints today No recurrence of bleeding Discussed with gastroenterology Also discussed with patient's daughter over the phone Patient denies any chest pain, dyspnea, nausea, vomiting, abdominal pain Review of Systems Review of Systems: All systems reviewed & are unremarkable except as noted in Subjective Physical Exam Physical Exam: Physical Exam: Vitals signs as noted above General Appearance:Moderately built and nourished, no apparent distress Head: normocephalic, Atraumatic Eyes: normal inspection, EOMI Neck: supple, Trachea midline Respiratory/Chest: Normal breath sounds, CTA, No accessory muscle use Cardiovascular: S1, S2, +murmur Abdomen/GI:Soft, Non tender, Bowel sounds present Extremities/Musculoskeletal:normal inspection, 1+edema Neurologic/Psych:AAOX3, grossly no focal neurological deficits Skin: normal color, warm Results & Data Results & Data Vital Signs (Past 12 Hours) Vital Signs Temp Pulse Pulse Resp BP Pulse Ox O2 Del Method 07/21/24 15:19 36.7 C 64 18 133/72 97 Room Air 07/21/24 14:47 62 07/21/24 11:17 36.8 C 61 17 118/64 95 Room Air 07/21/24 09:56 60 07/21/24 09:56 Room Air 07/21/24 07:09 36.6 C 70 18 117/58 L 97 Room Air Laboratory Results Short CBC 07/20/24 07/21/24 Range/Units 19:11 05:47 WBC 8.10 8.14 (4.8-10.8) K/ul Hgb 7.7 L 7.8 L (12.0-16.0) g/dl Hct 24.3 L 24.2 L (37.0-47.0) % Plt Count 139 143 (130-400) K/uL
[2024-07-21] MEDS: cefTRIAXone SODIUM 1,000 MG/50 ML BAG IV SCH (23:11)
[2024-07-22 07:49] LABS: BUN Creatinine Ratio 13.5 (10-20); Calcium 8.3 mg/dl (8.6-10.3); Creatinine Clr Calc Pharmacy 84.8 ml/min; Hematocrit (blood only) 26.4 % (37.0-47.0); Hemoglobin 8.2 g/dl (12.0-16.0); Potassium 3.5 mmol/L (3.5-5.1)
--- NOTE | 2024-07-22 08:56 | Gastroenterology Progress Note ---
Date of Service July 22, 2024 Assessment & Plan (1) Anemia: Plan: 74 year old female with history of atrial fibrillation on anticoagulation, history of stroke, T2DM, hypothyroidism, vascular dementia, h/o breast cancer s/p lumpectomy, chemo and XRT, and others below admitted through the ED w/ altered mental status, anemia S/P EGD w/o source of UGI bleeding. GI was contacted to arrange inpatient colonoscopy. Unfortunately she did not complete bowel prep nor produce any bowel movements. - Clear liquids today - Golytely prep today - NPO after midnight - Colonoscopy Friday - Trend H&H - Monitor GI output - Transfuse PRN - Hold anticoagulation I spent a total of 40 minutes on the date of service in review of patient's record, and previously obtained information in person and appropriate medical visit, discussion and education of plan, with patient and/or caregiver, placing orders for tests/referral/procedures as medically necessary and documentation of pertinent clinical information in patient's medical records for their visit today. Admission and Anticipated Discharge Date Admission Date: July 19, 2024 Supervising Physician Co-Signing Physician Notes I examined the patient and reviewed patient's chart , laboratory data and imaging studies. I agree with with assessment and plan of care as suggested by advanced practice provider. Significant iron deficiency anemia, negative upper endoscopy. The patient is being prepped for colonoscopy tomorrow. Subjective Pt did not complete bowel prep. No BM since admission. Did not produce any movements with 1/2 of the bowel preparation she took. Denies abd pain, nausea/vomiting. Review of Systems Review of Systems: All other findings negative except as noted in HPI. Physical Exam Constitutional: WD/WN, vitals as above Respiratory: normal respiratory effort Cardiovascular: Rate/Rhythm: regular rate Gastrointestinal (Abdomen): Percussion/Palpation: abdomen soft; abdomen nontender Skin: no rashes, warm and dry Results & Data Results & Data Vital Signs (Past 12 Hours) Vital Signs Temp Pulse Pulse Resp BP Pulse Ox O2 Del Method 07/22/24 08:01 36.5 C 72 16 155/73 H 97 Room Air 07/22/24 07:21 71 07/22/24 03:16 36.6 C 64 18 139/68 98 Room Air 07/21/24 23:43 36.6 C 62 18 147/75 H 100 Room Air 07/21/24 23:15 Room Air 07/21/24 23:10 64 PG Care Time/CCT Total # of Minutes Spent Total Time Spent with Patient: Total time spent is greater than 50% in coordination of care (as documented) at patient's floor/unit and/or counseling patient: Coding Level of Care Code 62929 SUB INP/OBS CARE 2/35MIN Diagnoses Anemia D64.9
[2024-07-22] MEDS: CALCIUM CARBONATE 500 MG CHEWABLE TAB PO PRN (10:12)
[2024-07-22] MEDS ORDERED: CEFEPIME 2000MG 2,000 MG/20 ML SYR IV SCH (12:00)
[2024-07-22] MEDS: FAMOTIDINE 20MG IV PUSH 20 MG/5 ML SYR IV ONE (12:57)
--- NOTE | 2024-07-22 14:29 | Hospitalist Progress Note ---
Date of Service July 22, 2024 Assessment & Plan (1) Encephalopathy: Plan: Acute UTI Possible sepsis Metabolic encephalopathy--Resolved -- Blood cultures negative to date --Urine culture not contributory --De-escalate IV cefepime to Rocephin --Mental status seem to be back to baseline --Reorient frequently to minimize delirium Possible upper GI bleed Possible Acute blood loss anemia Iron deficiency anemia --S/P 3 units PRBC --S/P EGD:Normal esophagus. No evidence of esophagitis or Coleman's mucosa. Z- line regular, 36 cm from the incisors. A gastric bypass was found, characterized by healthy appearing mucosa. Status post gastric bypass with Genet-en-Y. The gastric remnant appeared normal without evidence of marginal ulcer. There was no bleeding. There was no blood in the gastric remnant. The jejunum was normal. No specimens collected. -- Continue Protonix --Aspirin, Eliquis on hold --Received IV Venofer Appreciate GI input Continue colon prep Clear liquid diet today N.p.o. after midnight for colonoscopy tomorrow Monitor H&H and transfuse as needed Other Chronic conditions: Hypothyroidism: TSH significantly elevated with low normal free T4. Levothyroxine dose increased to 150 mcg daily. Plan to recheck TSH after 6 weeks. Atrial fibrillationEliquis currently on hold; continue metoprolol H/O Peripheral vascular diseaseaspirin on hold, continue statin Hypertension, currently stable - continue metoprolol, Monitor BP Hyperlipidemia, on statin Rx Thyroid cancer status S/P surgery DM II: on oral medications, well-controlled as of recent hemoglobin A1c of 7 last December 2023. Continue insulin while hospitalized Right breast cancer S/P surgery/chemo radiation Chronic lumbar back pain secondary to thoracolumbar compression fractures DVT Px: SCDs re: GI bleed CODE STATUS Full code Disposition PT OT prior to discharge Admission and Anticipated Discharge Date Admission Date: July 19, 2024 Subjective Patient is seen and examined at bedside States having heartburn this morning Unable to complete colon prep yesterday Patient offers no other complaints today Denies any chest pain, dyspnea, nausea, vomiting, abdominal pain Review of Systems Review of Systems: All systems reviewed & are unremarkable except as noted in Subjective Physical Exam Physical Exam: Physical Exam: Vitals signs as noted above General Appearance:Moderately built and nourished, no apparent distress Head: normocephalic, Atraumatic Eyes: normal inspection, EOMI Neck: supple, Trachea midline Respiratory/Chest: Normal breath sounds, CTA, No accessory muscle use Cardiovascular: S1, S2, +murmur Abdomen/GI:Soft, Non tender, Bowel sounds present Extremities/Musculoskeletal:normal inspection, 1+edema Neurologic/Psych:AAOX3, grossly no focal neurological deficits Skin: normal color, warm Results & Data Results & Data Vital Signs (Past 12 Hours) Vital Signs Temp Pulse Pulse Resp BP Pulse Ox O2 Del Method 07/22/24 11:59 36.4 C L 111 H 18 136/72 94 Room Air 07/22/24 08:01 36.5 C 72 16 155/73 H 97 Room Air 07/22/24 07:21 71 07/22/24 03:16 36.6 C 64 18 139/68 98 Room Air Laboratory Results Short CBC 07/22/24 Range/Units 07:14 Hgb 8.2 L (12.0-16.0) g/dl Hct 26.4 L (37.0-47.0) % BMP 07/22/24 07:14 Sodium 141 Potassium 3.5 Chloride 108 H Carbon Dioxide 27 BUN 7 Creatinine 0.52 L Glucose 94 Calcium 8.3 L
[2024-07-22] MEDS: POTASSIUM CHLORIDE CRTAB 20 MEQ TABCR PO ONE (14:55)
[2024-07-22] MEDS: LAVAGE SOLUTION 4000ML PO SCH (16:40)
[2024-07-23 06:52] LABS: Hematocrit (blood only) 31.9 % (37.0-47.0); Hemoglobin 9.8 g/dl (12.0-16.0); Mean Corpuscular Hgb Conc 30.7 g/dL (32.0-36.0); Mean Corpuscular Volume 91.1 fL (80.0-100.0); Mean Platelet Volume 11.2 fL (9.4-12.4); Platelet Count 219 K/uL (130-400); RDW Coefficient of Variation 18.1 % (11.5-14.5); RDW Standard Deviation 57.3 fL (36.4-46.3); White Blood Count 8.32 K/ul (4.8-10.8)
[2024-07-23 07:08] LABS: BUN Creatinine Ratio 8.9 (10-20); Calcium 8.9 mg/dl (8.6-10.3); Creatinine Clr Calc Pharmacy 80.6 ml/min; Magnesium 1.4 mg/dl (1.7-2.4); Potassium 3.9 mmol/L (3.5-5.1)
[2024-07-23] MEDS: SOD PHOSPHATE/SOD BIPHOSPHATE ENEMA 132 ML BTL PR STA (08:49)
[2024-07-23] MEDS: MAGNESIUM SULFATE / D5W 1 GM/100 ML BAG IV SCH (09:36)
--- NOTE | 2024-07-23 09:36 | Gastroenterology Progress Note ---
Date of Service July 23, 2024 Assessment & Plan (1) Anemia: Plan: 74 year old female with history of atrial fibrillation on anticoagulation, history of stroke, T2DM, hypothyroidism, vascular dementia, h/o breast cancer s/p lumpectomy, chemo and XRT, and others below admitted through the ED w/ altered mental status, anemia S/P EGD w/o source of UGI bleeding. GI was contacted to arrange inpatient colonoscopy. Unfortunately she did not complete bowel prep again - stat fleet enema ordered - NPO - Colonoscopy Friday - Trend H&H - Monitor GI output - Transfuse PRN - Hold anticoagulation We appreciate assistance in the management of any serological abnormality and corrections to include: hemoglobin >7, INR <2, platelets >50,000, potassium levels >3.5 but <5.3, and sodium levels within 5 points of the reference range prior to endoscopic evaluation. Thank you for allowing us to participate in the care of this patient. Please call with any acute changes, questions or concerns. Please see addendum below with additional recommendation from my supervising physician. Admission and Anticipated Discharge Date Admission Date: July 19, 2024 Supervising Physician Co-Signing Physician Notes I examined the patient and reviewed patient's chart , laboratory data and imaging studies. I agree with with assessment and plan of care as suggested by advanced practice provider. For colonoscopy to evaluate PRANEETH and GI blood loss. Subjective Pt was seen and evaluated, chart reviewed. Unfortunately she did not complete bowel preparation. Fleets enema ordered this AM. Review of Systems Review of Systems: All other findings negative except as noted in HPI. Physical Exam Constitutional: WD/WN, vitals as above Respiratory: normal respiratory effort Cardiovascular: Rate/Rhythm: regular rate and regular rhythm Gastrointestinal (Abdomen): normal bowel sounds, soft, nontender, no hepatosplenomegaly Skin: no rashes, warm and dry Results & Data Results & Data Vital Signs (Past 12 Hours) Vital Signs Temp Pulse Pulse Resp BP Pulse Ox O2 Del Method 07/23/24 07:52 36.3 C L 57 L 16 162/71 H 100 Room Air 07/23/24 07:45 Room Air 07/23/24 07:00 49 L 07/23/24 03:22 36.3 C L 88 16 134/70 95 Room Air 07/23/24 00:08 56 L 10/03/24 22:39 36.3 C L 56 L 18 158/81 H 100 Room Air Laboratory Results 07/23/24 07/23/24 07/22/24 Range/Units 08:25 06:29 20:12 WBC 8.32 (4.8-10.8) K/ul RBC 3.50 L (4.20-5.40) M/uL Hgb 9.8 L (12.0-16.0) g/dl Hct 31.9 L (37.0-47.0) % MCV 91.1 (80.0-100.0) fL MCH 28.0 (25.0-34.0) pg MCHC 30.7 L (32.0-36.0) g/dL RDW Std Deviation 57.3 H (36.4-46.3) fL RDW Coeff of Valentina 18.1 H (11.5-14.5) % Plt Count 219 (130-400) K/uL MPV 11.2 (9.4-12.4) fL Sodium 138 (136-145) mmol/L Potassium 3.9 (3.5-5.1) mmol/L Chloride 103 (98-107) mmol/L Carbon Dioxide 28 (21-32) mmol/L Anion Gap 7 (3-11) BUN 5 L (6-23) mg/dl Creatinine 0.56 L (0.6-1.2) mg/dl Est Cr Clr Drug Dosing 80.6 ml/min eGFR 95.12 BUN/Creatinine Ratio 8.9 L (10-20) Glucose 83 (70-99(Fasting)) mg/dl POC Glucose 72 141 H (70-99) mg/dl Calcium 8.9 (8.6-10.3) mg/dl Magnesium 1.4 L (1.7-2.4) mg/dl 07/22/24 07/22/24 Range/Units 17:23 12:14 WBC (4.8-10.8) K/ul RBC (4.20-5.40) M/uL Hgb (12.0-16.0) g/dl Hct (37.0-47.0) % MCV (80.0-100.0) fL MCH (25.0-34.0) pg MCHC (32.0-36.0) g/dL RDW Std Deviation (36.4-46.3) fL RDW Coeff of Valentina (11.5-14.5) % Plt Count (130-400) K/uL MPV (9.4-12.4) fL Sodium (136-145) mmol/L Potassium (3.5-5.1) mmol/L Chloride (98-107) mmol/L Carbon Dioxide (21-32) mmol/L Anion Gap (3-11) BUN (6-23) mg/dl Creatinine (0.6-1.2) mg/dl Est Cr Clr Drug Dosing ml/min eGFR BUN/Creatinine Ratio (10-20) Glucose (70-99(Fasting)) mg/dl POC Glucose 132 H 132 H (70-99) mg/dl Calcium (8.6-10.3) mg/dl Magnesium (1.7-2.4) mg/dl PG Care Time/CCT Total # of Minutes Spent Total Time Spent with Patient: Total time spent is greater than 50% in coordination of care (as documented) at patient's floor/unit and/or counseling patient: Coding Level of Care Code None Diagnoses Anemia D64.9
--- NOTE | 2024-07-23 10:51 | Anesthesiology Consultation ---
Date of Service July 23, 2024 Assessment & Plan Chart Review Chart Review: Acceptable Risk for Surgery and Patient NOT seen in Pre Admission Testing Consults Requested none ASA ASA3 Proposed Anesthesia Anesthesia Type: MAC Risk / Benefits Reviewed With: PT / POA / Parent / Guardian, Accepts Plan and Informed Consent Obtained History Surgery Operation Date: 07/19/24 16:45 Proposed Procedures p Esophagogastroduodenoscopy Brett West MD Operation Date: 07/22/24 17:10 Proposed Procedures p Colonoscopy Dr. Brett West MD Operation Date: 07/23/24 16:30 Proposed Procedures p Colonoscopy Dr. Brett West MD Height/Weight Height: 5 ft 3 in Weight: 68.4 kg Allergies Allergy/AdvReac Type Severity Reaction Status Date / Time Penicillins Allergy Intermediate Hives Verified 07/19/24 00:26 Sulfa (Sulfonamide AdvReac Severe SEVERE Verified 07/19/24 00:26 Antibiotics) NAUSEA Medications Home Medications Medication Instructions Recorded Confirmed Last Taken apixaban 5 mg tablet (Eliquis) 5 mg PO AMHS 12/13/23 07/19/24 07/18/24 lorazepam 0.5 mg tablet (Ativan) 0.5 mg PO Q8 PRN Anxiety 12/13/23 07/19/24 Unknown metformin 500 mg tablet 1,000 mg PO BIDM 12/13/23 07/19/24 07/18/24 pantoprazole 40 mg tablet,delayed 40 mg PO QAM 12/13/23 07/19/24 07/18/24 release semaglutide 1 mg/dose (4 mg/3 mL) 1 mg subcut WK 12/13/23 07/19/24 07/12/24 subcutaneous pen injector (Ozempic) aspirin 81 mg tablet,delayed 81 mg PO QAM 02/01/24 07/19/24 07/18/24 release atorvastatin 40 mg tablet 40 mg PO QAM 02/01/24 07/19/24 02/03/24 levothyroxine 125 mcg tablet 125 mcg PO DAILYBB 02/01/24 07/19/24 07/18/24 metoprolol tartrate 25 mg tablet 12.5 mg PO AMHS 02/01/24 07/19/2407/18/24 cholecalciferol (vitamin D3) 125 125 mcg PO QAM #30 tabs 02/06/24 07/19/24 07/18/24 mcg (5,000 unit) tablet ferrous sulfate 325 mg (65 mg 325 mg PO QAM #30 tabs 02/06/24 07/19/24 07/18/24 iron) tablet,delayed release verapamil 40 mg tablet 40 mg PO AMHS #60 tabs 02/06/24 07/19/24 07/18/24 acetaminophen 650 mg 650 mg PO TID ud 03/11/24 07/19/24 07/18/24 tablet,extended release cyanocobalamin (vitamin B-12) 1,000 mcg PO QAM 03/11/24 07/19/24 07/18/24 1,000 mcg tablet,extended release (Vitamin B-12 ER) sertraline 25 mg tablet 25 mg PO QAM 03/11/24 07/19/24 07/18/24 lidocaine 4 % topical patch 1 patch topical DAILY #15 ea 03/16/24 07/19/24 07/18/24 calcitonin (salmon) 200 1 spray intranasal (ALT) QAM 07/19/24 07/19/24 07/18/24 unit/actuation nasal spray nystatin 100,000 unit/gram topical 1 applic topical BID 07/19/24 07/19/24 07/18/24 powder oxycodone 5 mg tablet 5 mg PO TID pain 07/19/24 07/19/24 Unknown Active Medications Generic Name Dose Route Start Last Admin Trade Name Freq PRN Reason Stop Dose Admin Acetaminophen 650 mg 07/19/24 02:08 07/22/24 20:18 Acetaminophen 325 Mg Tab PO 08/18/24 02:07 650 mg QID PRN Administration pain/fever Atorvastatin Calcium 40 mg 07/19/24 09:00 07/23/24 07:45 Atorvastatin 40 Mg Tab PO 08/18/24 08:59 Not Given QAM [facility] Calcium Carbonate 500 mg 07/22/24 09:36 07/22/24 10:12 Calcium Carbonate 500 Mg Chewable Tab PO 08/21/24 09:35 500 mg TID PRN Administration Indigestion Cyanocobalamin 1,000 mcg 07/19/24 09:00 07/23/24 07:46 Cyanocobalamin (B-12) 500 Mcg Tablet PO 08/18/24 08:59 1,000 mcg QAM BRENNEN Administration Ceftriaxone Sodium 1,000 mg in 50 mls @ 100 mls/hr 07/22/24 00:00 07/23/24 00:07 Rocephin IV 07/24/24 02:00 Infused Q24H BRENNEN Infusion Magnesium Sulfate/Dextrose 1 gm in 100 mls @ 50 mls/hr 07/23/24 09:00 07/23/24 09:36 Magnesium Sulfate / D5w IV 07/23/24 12:59 50 mls/hr Q2H BRENNEN Administration Insulin Aspart 0 units 07/19/24 16:30 07/23/24 08:30 Insulin Aspart Per Unit Charge SC 08/18/24 05:59 Not Given ACHS BRENNEN Levothyroxine Sodium 150 mcg 07/19/24 06:30 07/23/24 05:48 Levothyroxine Sodium 150 Mcg Tablet PO 08/18/24 06:29 Not Given DAILYBB BRENNEN Metoprolol Tartrate 12.5 mg 07/19/24 09:00 07/23/24 07:44 Metoprolol Tartrate 25 Mg Tab PO 08/18/24 08:59 Not Given AMHS BRENNEN Oxycodone HCl 5 mg 07/19/24 02:08 07/23/24 00:47 Oxycodone Hcl Ir 5 Mg Tab (Immediate Release) PO 08/02/24 02:07 5 mg Q4H PRN Administration Pain Pantoprazole Sodium 40 mg 07/20/24 09:00 07/23/24 07:46 Pantoprazole 40 Mg Tab PO 08/19/24 08:59 40 mg QAM BRENNEN Administration Sertraline HCl 25 mg 07/19/24 09:00 07/23/24 07:45 Sertraline Hcl 50 Mg Tablet PO 08/18/24 08:59 25 mg QAM BRENNEN Administration Verapamil HCl 40 mg 07/19/24 09:00 07/23/24 07:47 Verapamil Hcl 40 Mg Tab PO 08/18/24 08:59 Not Given AMHS BRENNEN NPO Date Last Intake of Fluids: 07/19/24 Time Last Intake of Fluids: 13:00 Date Last Intake of Solids: 07/18/24 Time Last Intake of Solids: 17:00 Past Medical History Medical History Encounter for pre-operative examination Compression fracture of lumbosacral spine DAVIS (obstructive sleep apnea) Aortic stenosis CVA (cerebral vascular accident) Anemia Encephalopathy Persistent atrial fibrillation Diabetes mellitus Acute UTI History of breast cancer Exercise / Class Metabolic Activity II 4-5 Yardwork/Stairs/Walk up hill Past Family History Family History Other Breast cancer Diabetes Hypertension Past Surgical History Surgical History Hx of cholecystectomy H/O section H/O gastric bypass Left ulnar fracture s/p surgical repair 01/02/24 at [facility] Past Anesthesia History No Hx of Anesthesia Complications and No Family Hx of Anesthesia Complications History of PONV No Hx of PONV and No Hx of Motion Sickness Social History Smoking Status: Never smoker Hx Alcohol Use: No Hx Substance Use: No substance use type: does not use Review of Systems ROS Unobtainable: All systems reviewed & are unremarkable except as noted in HPI & below Physical Exam Vital Signs Last Vital Signs Temp 36.3 C L 07/23/24 07:52 Pulse 57 L 07/23/24 07:52 Resp 16 07/23/24 07:52 BP 162/71 H 07/23/24 07:52 Pulse Ox 100 07/23/24 07:52 O2 Del Method Room Air 07/23/24 07:52 O2 Flow Rate 2 07/19/24 22:37 ENMT Mouth: no TMJ abnormality Thyromental Distance: > or= 3.5 Finger Breadths Mallampati Class: II Neck normal visual inspection and trachea midline; neck extension not limited Respiratory normal respiratory effort Auscultation: lungs clear to auscultation bilaterally Cardiovascular Rate/Rhythm: regular rate and regular rhythm Heart Sounds: no murmur Musculoskeletal Spine: normal cervical ROM Extremities: full ROM of extremities Neurologic moves all extremities Psychiatric Orientation: alert and oriented x 3 Testing Laboratory Results 07/23/24 06:29 07/23/24 06:29 Urine Color Yellow 07/18/24 23:16 Urine Appearance Cloudy (Clear) A 07/18/24 23:16 Urine pH 5.0 (4.5-7.5) 07/18/24 23:16 Ur Specific [place] 1.027 (1.000-1.030) 07/18/24 23:16 Urine Protein Trace (Negative) H 07/18/24 23:16 Urine Glucose (UA) Negative (Negative) 07/18/24 23:16 Urine Ketones Trace (Negative) H 07/18/24 23:16 Urine Nitrite Negative (Negative) 07/18/24 23:16 Ur Leukocyte Esterase 3+ (Negative) H 07/18/24 23:16 Urine WBC (Auto) >50 /hpf (0-5) H 07/18/24 23:16 Urine RBC (Auto) 0-2 /hpf (0-2) 07/18/24 23:16 U Hyaline Cast (Auto) 11-20 /lpf (0-2) H 07/18/24 23:16 U Epithel Cells (Auto) 6-10 /hpf (0-2) H 07/18/24 23:16 Urine Bacteria (Auto) 2+ (None Seen) H 07/18/24 23:16 Blood Type O Positive 07/18/24 23:21 Antibody Screen NEGATIVE 07/18/24 23:21 07/19/24 12:45 Aerobic Blood Culture - Preliminary Blood No growth in Aerobic bottle after 48 hours. Anaerobic Blood Culture - Final 07/19/24 12:31 Aerobic Blood Culture - Preliminary Blood No growth in Aerobic bottle after 48 hours. Anaerobic Blood Culture - Preliminary No growth in Anaerobic bottle after 48 hours. 07/18/24 23:16 Urine Culture - Final Urine,Straight Cath More than three types of organisms present, all high counts mixed probable skin stevie - No further identifications or sensitivities to follow. 07/23/24 08:25 POC Glucose 72 Other Testing Electrocardiogram Date: 07/19/24 DICTATED BY: Stacy Roman DO Test Reason : Blood Pressure : */* mmHG Vent. Rate : 77 BPM Atrial Rate : 77 BPM P-R Int : 146 ms QRS Dur : 92 ms QT Int : 378 ms P-R-T Axes : 90 11 76 degrees QTcB Int : 427 ms Sinus rhythm with occasional Premature ventricular complexes Cannot rule out Anterior infarct , age undetermined Diffuse T wave abnormality Abnormal ECG No previous ECGs available Confirmed by Stacy Roman ([id number]) on 07/19/2024 7:54:09 AM Chest X-Ray Date: 07/18/24 XR chest 1V portable HISTORY: 74 years-old Female weakness COMPARISON: 12/13/2023 TECHNIQUE: AP view of the chest FINDINGS: Cardiac silhouette is mildly enlarged. Atherosclerosis of the aorta. No pneumothorax, pleural effusion or airspace consolidation. Right shoulder arthroplasty. Degenerative changes of the spine and left shoulder. Calcified right hilar lymph nodes. Right upper abdominal surgical clips. Small hiatal hernia. IMPRESSION: No acute process. Echocardiogram Date: 02/04/24 LV is normal in size Mild LVH LV wall motion is normal EF 60-65% Grade 2 DD Mild to moderate MR Mild LA is moderately dilated.
--- NOTE | 2024-07-23 12:32 | GI REPORT ---
[facility] Patient: JOSE HUGHES : 1950 Sex at : Female Age: 74 Years Procedure: Colonoscopy Date: 07/23/2024 Attending Physician: Paco West MD Referring MD: Damion Blanchard Md Indications: - Rectal bleeding - Iron deficiency anemia Medications: - Monitored Anesthesia Care Complications: - No immediate complications. Estimated Blood Loss: - Estimated blood loss: None. Procedure: - The pediatric colonoscope was introduced through the anus and advanced to the cecum, identified by appendiceal orifice and ileocecal valve. - The colonoscopy was performed with moderate difficulty due to significant looping and a redundant colon. Successful completion of the procedure was aided by applying abdominal pressure and lavage. - The patient tolerated the procedure well. - The quality of the bowel preparation was good. Findings: - The perianal and digital rectal examinations were normal. - A single (solitary) ten mm ulcer was found in the ascending colon. No bleeding was present. No stigmata of recent bleeding were seen. Biopsies were taken with a cold forceps for histology. - Many medium-mouthed diverticula were found in the left colon. Impression: - A single (solitary) ulcer in the ascending colon. Biopsied. - Diverticulosis in the left colon. Recommendation: - Await pathology results. - Correct iron deficiency anemia. If stable can resume anticoagulation in 5 to 7 days. Procedure Code(s): - 50171, Colonoscopy, flexible; with biopsy, single or multiple Diagnosis Code(s): - K62.5, Hemorrhage of anus and rectum - D50.9, Iron deficiency anemia, unspecified - K63.3, Ulcer of intestine - K57.30, Diverticulosis of large intestine without perforation or abscess without bleeding CPT(R) - 2023 copyright [employer]. All Rights Reserved. The CPT codes, CCI edits and ICD codes generated are intended as suggestions and were generated based on input data. These codes are preliminary and upon freezer assistant review may be revised to meet current compliance and payer requirements. The provider is responsible for the final determination of appropriate codes, and modifiers. Paco West M.D. , This document has been electronically signed. Note Initiated:07/23/2024 Note Completed:07/23/2024 12:31 PM [id number]
--- NOTE | 2024-07-23 12:45 | Communication Note ---
Date of Service: July 23, 2024 Colonoscopy showed colonic diverticulosis and single ulcer in the ascending colon which was not bleeding and showed no stigmata of bleeding. Suspected ulcer is likely healing focal ischemic colitis. No evidence of ulcerative colitis or Crohn's disease. There were no polyps. Colonoscopy was difficult due to redundant colon and looping of the colonoscope. Recommendations: Replenish iron stores. Observe without anticoagulation for next few days. If stable okay to resume anticoagulation in 5 days or so.
--- NOTE | 2024-07-23 12:51 | Anesthesiology Progress Note ---
Date of Service July 23, 2024 Anesthesia Post Procedure Vital Signs Vital Signs: Temp Pulse Pulse Resp BP Pulse Ox O2 Del Method 07/23/24 12:31 55 L 16 114/56 L 95 Room Air 07/23/24 11:11 36.3 C L 60 16 149/78 H 95 Room Air 07/23/24 07:52 36.3 C L 57 L 16 162/71 H 100 Room Air 07/23/24 07:45 Room Air 07/23/24 07:00 49 L 07/23/24 03:22 36.3 C L 88 16 134/70 95 Room Air 07/23/24 00:08 56 L 07/22/24 22:39 36.3 C L 56 L 18 158/81 H 100 Room Air 07/22/24 19:20 36.7 C 62 16 151/82 H 99 Room Air 07/22/24 15:48 36.3 C L 65 18 148/71 H 97 Room Air 07/22/24 15:30 Room Air Pain Intensity Back: Pain Intensity: 3 Transfer of Care Handoff Completed per policy Notes Mental Status: alert / awake / arousable Patient Amnestic to Procedure: Yes Nausea / Vomiting: adequately controlled Pain: adequately controlled Airway Patency, RR, SpO2: stable & adequate BP & HR: stable & adequate Hydration State: stable & adequate Anesthetic Complications: no major complications apparent and Pt Satisfied with anesthetic care
[2024-07-23] MEDS: PROPOFOL IV EMULSION 10 MG/ML 20 ML VIAL IV ONE ×2 (14:50)
[2024-07-23] MEDS: LIDOCAINE 2% 2 ML VIAL/AMP(20MG/ML) INFIL ONE (14:50)
[2024-07-23] MEDS: PHENYLEPHRINE 100MCG/ML 10ML SYR IV ONE (14:51)
--- NOTE | 2024-07-23 16:02 | Hospitalist Progress Note ---
Date of Service July 23, 2024 Assessment & Plan (1) Encephalopathy: Plan: Acute UTI Possible sepsis Metabolic encephalopathy--Resolved -- Blood cultures negative to date --Urine culture not contributory --De-escalate IV cefepime to Rocephin --Mental status seem to be back to baseline --Reorient frequently to minimize delirium Possible upper GI bleed Possible Acute blood loss anemia Iron deficiency anemia --S/P 3 units PRBC --S/P EGD:Normal esophagus. No evidence of esophagitis or Coleman's mucosa. Z- line regular, 36 cm from the incisors. A gastric bypass was found, characterized by healthy appearing mucosa. Status post gastric bypass with Genet-en-Y. The gastric remnant appeared normal without evidence of marginal ulcer. There was no bleeding. There was no blood in the gastric remnant. The jejunum was normal. No specimens collected. --S/P colonoscopy: A single (solitary) ulcer in the ascending colon. Biopsied. Diverticulosis in the left colon. -- Continue Protonix --Aspirin, Eliquis on hold --Received IV Venofer Appreciate GI input Monitor H&H and transfuse as needed Will give additional dose of IV Venofer today Need to start on oral iron supplements on discharge No anticoagulation for 5 more days Hb 9.8 today Other Chronic conditions: Hypothyroidism: TSH significantly elevated with low normal free T4. Levothyroxine dose increased to 150 mcg daily. Plan to recheck TSH after 6 weeks. Atrial fibrillationEliquis currently on hold; continue metoprolol H/O Peripheral vascular diseaseaspirin on hold, continue statin Hypertension, currently stable - continue metoprolol, Monitor BP Hyperlipidemia, on statin Rx Thyroid cancer status S/P surgery DM II: on oral medications, well-controlled as of recent hemoglobin A1c of 7 last December 2023. Continue insulin while hospitalized Right breast cancer S/P surgery/chemo radiation Chronic lumbar back pain secondary to thoracolumbar compression fractures DVT Px: SCDs re: GI bleed CODE STATUS Full code Disposition PT OT prior to discharge Admission and Anticipated Discharge Date Admission Date: July 19, 2024 Subjective Patient is seen and examined at bedside States feeling tired this morning Had colonoscopy earlier today No other complaints today Denies any chest pain, dyspnea, nausea, vomiting, abdominal pain Review of Systems Review of Systems: All systems reviewed & are unremarkable except as noted in Subjective Physical Exam Physical Exam: Physical Exam: Vitals signs as noted above General Appearance:Moderately built and nourished, no apparent distress Head: normocephalic, Atraumatic Eyes: normal inspection, EOMI Neck: supple, Trachea midline Respiratory/Chest: Normal breath sounds, CTA, No accessory muscle use Cardiovascular: S1, S2, +murmur Abdomen/GI:Soft, Non tender, Bowel sounds present Extremities/Musculoskeletal:normal inspection, 1+edema Neurologic/Psych:AAOX3, grossly no focal neurological deficits Skin: normal color, warm Results & Data Results & Data Vital Signs (Past 12 Hours) Vital Signs Temp Pulse Pulse Resp BP Pulse Ox O2 Del Method 07/23/24 14:00 57 L 07/23/24 13:01 57 L 16 141/81 H 98 Room Air 07/23/24 12:52 59 L 16 114/60 97 Room Air 07/23/24 12:31 55 L 16 114/56 L 95 Room Air 07/23/24 11:11 36.3 C L 60 16 149/78 H 95 Room Air 07/23/24 07:52 36.3 C L 57 L 16 162/71 H 100 Room Air 07/23/24 07:45 Room Air 07/23/24 07:00 49 L Laboratory Results Short CBC 07/23/24 Range/Units 06:29 WBC 8.32 (4.8-10.8) K/ul Hgb 9.8 L (12.0-16.0) g/dl Hct 31.9 L (37.0-47.0) % Plt Count 219 (130-400) K/uL BMP 07/23/24 06:29 Sodium 138 Potassium 3.9 Chloride 103 Carbon Dioxide 28 BUN 5 L Creatinine 0.56 L Glucose 83 Calcium 8.9
[2024-07-23] MEDS: IRON SUCROSE 300 MG in SODIUM CHLORIDE 0.9% 250 ML IV ONE (16:43)
[2024-07-23] MEDS: MAGNESIUM CHLORIDE W/CALCIUM 64MG DELAYED REL TAB PO SCH (20:51)
[2024-07-23] MEDS: PANTOprazole 40 MG TAB PO SCH (20:52)
[2024-07-24 08:04] LABS: Hematocrit (blood only) 24.4 % (37.0-47.0); Hemoglobin 7.9 g/dl (12.0-16.0)
[2024-07-24] MEDS: ALUMINUM/MAGNESIUM/SIMETH (MAALOX MAX) 30 ML UDC PO PRN (08:05)
[2024-07-24 09:05] LABS: BUN Creatinine Ratio 10.2 (10-20); Calcium 8.4 mg/dl (8.6-10.3); Creatinine Clr Calc Pharmacy 77.4 ml/min; Magnesium 1.6 mg/dl (1.7-2.4); Potassium 3.9 mmol/L (3.5-5.1)
[2024-07-24] MEDS: MAGNESIUM SULFATE / D5W 1 GM/100 ML BAG IV ONE (09:56)
--- NOTE | 2024-07-24 16:25 | Hospitalist Progress Note ---
Date of Service July 24, 2024 Assessment & Plan (1) Encephalopathy: Plan: Acute UTI Possible sepsis Metabolic encephalopathy--Resolved -- Blood cultures negative to date --Urine culture not contributory --De-escalate IV cefepime to Rocephin --Mental status seem to be back to baseline --Reorient frequently to minimize delirium Completed antibiotic course Possible upper GI bleed Possible Acute blood loss anemia Iron deficiency anemia --S/P 3 units PRBC --S/P EGD:Normal esophagus. No evidence of esophagitis or Coleman's mucosa. Z- line regular, 36 cm from the incisors. A gastric bypass was found, characterized by healthy appearing mucosa. Status post gastric bypass with Genet-en-Y. The gastric remnant appeared normal without evidence of marginal ulcer. There was no bleeding. There was no blood in the gastric remnant. The jejunum was normal. No specimens collected. --S/P colonoscopy: A single (solitary) ulcer in the ascending colon. Biopsied. Diverticulosis in the left colon. -- Continue Protonix --Aspirin, Eliquis on hold --Received IV Venofer Appreciate GI input Monitor H&H and transfuse as needed Will give additional dose of IV Venofer today Need to start on oral iron supplements on discharge No anticoagulation for 5 more days Hemoglobin 7.9 today Denies any bleeding issues currently Pathology pending Other Chronic conditions: Hypothyroidism: TSH significantly elevated with low normal free T4. Levothyr oxine dose increased to 150 mcg daily. Plan to recheck TSH after 6 weeks. Atrial fibrillationEliquis currently on hold; continue metoprolol H/O Peripheral vascular diseaseaspirin on hold, continue statin Hypertension, currently stable - continue metoprolol, Monitor BP Hyperlipidemia, on statin Rx Thyroid cancer status S/P surgery DM II: on oral medications, well-controlled as of recent hemoglobin A1c of 7 last December 2023. Continue insulin while hospitalized Right breast cancer S/P surgery/chemo radiation Chronic lumbar back pain secondary to thoracolumbar compression fractures DVT Px: SCDs re: GI bleed CODE STATUS Full code Disposition Case management to help with discharge planning Admission and Anticipated Discharge Date Admission Date: July 19, 2024 Subjective Patient is seen and examined at bedside Having heartburn intermittently No bleeding issues currently Denies any chest pain, dyspnea, nausea, vomiting, abdominal pain Review of Systems Review of Systems: All systems reviewed & are unremarkable except as noted in Subjective Physical Exam Physical Exam: Physical Exam: Vitals signs as noted above General Appearance:Moderately built and nourished, no apparent distress Head: normocephalic, Atraumatic Eyes: normal inspection, EOMI Neck: supple, Trachea midline Respiratory/Chest: Normal breath sounds, CTA, No accessory muscle use Cardiovascular: S1, S2, +murmur Abdomen/GI:Soft, Non tender, Bowel sounds present Extremities/Musculoskeletal:normal inspection, 1+edema Neurologic/Psych:AAOX3, grossly no focal neurological deficits Skin: normal color, warm Results & Data Results & Data Vital Signs (Past 12 Hours) Vital Signs Temp Pulse Pulse Resp BP Pulse Ox O2 Del Method 07/24/24 15:45 36.7 C 75 18 116/63 96 Room Air 07/24/24 13:55 76 07/24/24 12:13 36.7 C 62 18 130/68 98 Room Air 07/24/24 07:37 36.7 C 72 16 134/64 93 Room Air 07/24/24 07:30 Room Air 07/24/24 07:00 63 Laboratory Results Short CBC 07/24/24 Range/Units 07:36 Hgb 7.9 L (12.0-16.0) g/dl Hct 24.4 L (37.0-47.0) % BMP 07/24/24 07:36 Sodium 138 Potassium 3.9 Chloride 107 Carbon Dioxide 27 BUN 6 Creatinine 0.59 L Glucose 72 Calcium 8.4 L
[2024-07-24 19:49] VITALS: RESP 16
[2024-07-25 06:44] LABS: Hematocrit (blood only) 26.6 % (37.0-47.0); Hemoglobin 8.2 g/dl (12.0-16.0); Mean Corpuscular Hemoglobin 28.5 pg (25.0-34.0); Mean Corpuscular Hgb Conc 30.8 g/dL (32.0-36.0); Mean Corpuscular Volume 92.4 fL (80.0-100.0); Platelet Count 179 K/uL (130-400); RDW Coefficient of Variation 18.6 % (11.5-14.5); RDW Standard Deviation 60.5 fL (36.4-46.3); Red Blood Count 2.88 M/uL (4.20-5.40); White Blood Count 7.16 K/ul (4.8-10.8)
[2024-07-25 07:14] LABS: Calcium 8.4 mg/dl (8.6-10.3); Magnesium 1.6 mg/dl (1.7-2.4)
[2024-07-25 07:19] LABS: BUN Creatinine Ratio 13.6 (10-20); Creatinine Clr Calc Pharmacy 77.1 ml/min
--- NOTE | 2024-07-25 15:21 | Hospitalist Progress Note ---
Date of Service July 25, 2024 Assessment & Plan (1) Encephalopathy: Plan: Acute UTI Possible sepsis Metabolic encephalopathy--Resolved -- Blood cultures negative to date --Urine culture not contributory --De-escalate IV cefepime to Rocephin --Mental status seem to be back to baseline --Reorient frequently to minimize delirium Completed antibiotic course Plan to be discharged home. Possible upper GI bleed Possible Acute blood loss anemia Iron deficiency anemia --S/P 3 units PRBC --S/P EGD:Normal esophagus. No evidence of esophagitis or Coleman's mucosa. Z- line regular, 36 cm from the incisors. A gastric bypass was found, characterized by healthy appearing mucosa. Status post gastric bypass with Genet-en-Y. The gastric remnant appeared normal without evidence of marginal ulcer. There was no bleeding. There was no blood in the gastric remnant. The jejunum was normal. No specimens collected. --S/P colonoscopy: A single (solitary) ulcer in the ascending colon. Biopsied. Diverticulosis in the left colon. -- Continue Protonix --Aspirin, Eliquis on hold --Received IV Venofer Appreciate GI input Monitor H&H and transfuse as needed Need to start on oral iron supplements on discharge No anticoagulation for 5 more days Hemoglobin 8.2 today Denies any bleeding issues currently Pathology pending. Advised to follow-up for pathology report as outpatient Other Chronic conditions: Hypothyroidism: TSH significantly elevated with low normal free T4. Levothyroxine dose increased to 150 mcg daily. Plan to recheck TSH after 6 weeks. Atrial fibrillationEliquis currently on hold; continue metoprolol H/O Peripheral vascular diseaseaspirin on hold, continue statin Hypertension, currently stable - continue metoprolol, Monitor BP Hyperlipidemia, on statin Rx Thyroid cancer status S/P surgery DM II: on oral medications, well-controlled as of recent hemoglobin A1c of 7 last December 2023. Continue insulin while hospitalized Right breast cancer S/P surgery/chemo radiation Chronic lumbar back pain secondary to thoracolumbar compression fractures DVT Px: SCDs re: GI bleed CODE STATUS Full code Disposition Home with home health Admission and Anticipated Discharge Date Admission Date: July 19, 2024 Subjective Patient is seen and examined at bedside States feeling well today No new complaints Denies any chest pain, dyspnea, nausea, vomiting, abdominal pain Discussed with patient's daughter over the phone Plan to be discharged home today Review of Systems Review of Systems: All systems reviewed & are unremarkable except as noted in Subjective Physical Exam Physical Exam: Physical Exam: Vitals signs as noted above General Appearance:Moderately built and nourished, no apparent distress Head: normocephalic, Atraumatic Eyes: normal inspection, EOMI Neck: supple, Trachea midline Respiratory/Chest: Normal breath sounds, CTA, No accessory muscle use Cardiovascular: S1, S2, +murmur Abdomen/GI:Soft, Non tender, Bowel sounds present Extremities/Musculoskeletal:normal inspection, 1+edema Neurologic/Psych:AAOX3, grossly no focal neurological deficits Skin: normal color, warm Results & Data Results & Data Vital Signs (Past 12 Hours) Vital Signs Temp Pulse Pulse Resp BP Pulse Ox O2 Del Method 07/25/24 14:10 79 07/25/24 11:47 36.5 C 59 L 16 131/70 96 Room Air 07/25/24 11:37 Room Air 07/25/24 08:07 36.6 C 66 16 154/66 H 98 Room Air 07/25/24 07:19 62 07/25/24 05:18 36.6 C 57 L 16 159/67 H 99 Room Air Laboratory Results Short CBC 07/25/24 Range/Units 06:18 WBC 7.16 (4.8-10.8) K/ul Hgb 8.2 L (12.0-16.0) g/dl Hct 26.6 L (37.0-47.0) % Plt Count 179 (130-400) K/uL BMP 07/25/24 06:18 Sodium 136 Potassium 4.0 Chloride 106 Carbon Dioxide 27 BUN 8 Creatinine 0.59 L Glucose 96 Calcium 8.4 L
--- NOTE | 2024-07-25 15:40 | Discharge Summary ---
Date of Service July 25, 2024 Admission HPI Per Admitting Provider History obtained from patient, family, and records. Limited history from patient secondary to dementia. Medical history significant for valvular heart disease (mild , trace TR, TTE 2023), A-fib on Eliquis, CVA, PVD, hypertension, hyperlipidemia, DAVIS as per records, thyroid cancer status post surgery, postsurgical hypothyroidism, DM2 on oral medications, right breast cancer status post surgery/chemoradiation, dem entia, GERD, history of gastric bypass, chronic anemia (baseline hemoglobin of 10-11), chronic lumbar back pain secondary to thoracolumbar compression fractures, osteoporosis. Last confinement February 2024 for back pain and ambulatory dysfunction. Patient also received antibiotic Rx for possible UTI. Patient discharged home on home health and PT. Patient increasingly weak over the last couple of weeks as per daughter. Patient denies headache, chest pain, SOB, unusual abdominal pain. Usual dark stools to iron Rx. Denies OTC NSAID intake. Back pain not any worse as per daughter but not getting better. PCP prescribed Fosamax for osteoporosis on DEXA scan but patient daughter hesitant to administer medication due to GI side effects. Patient dry heaving today and complaining of stomach upset. She could not swallow her pills. Patient more confused than usual. Outpatient provider recommended ER evaluation. Ceftriaxone, Protonix, 1 unit PRBC administered at the ER. 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 Admission Exam Per Admitting Provider GENERAL: Pleasantly demented, comfortable, no respiratory distress SKIN: Pallor, warm HEENT: Bespectacled, pale palpebral conjunctivae, no ptosis, dry buccal mucosa NECK : Supple, no tenderness CHEST : CTA, no tenderness HEART : RRR, systolic murmur ABDOMEN: Some distention, minimal epigastric tenderness EXTREMITIES : Minimal LE swelling, no LE tenderness, no other conspicuous deformities noted NEUROLOGIC : Demented, no facial asymmetry, no other gross focality Principal Diagnosis Upper GI bleed Acute blood loss anemia Urinary tract infection Acute metabolic encephalopathy Abnormal thyroid function test Discharge Data Allergies Allergy/AdvReac Type Severity Reaction Status Date / Time Penicillins Allergy Intermediate Hives Verified 07/19/24 00:26 Sulfa (Sulfonamide AdvReac Severe SEVERE Verified 07/19/24 00:26 Antibiotics) NAUSEA Consultations 07/19/24 02:09 Consult Gastroenterology Routine Procedures Performed Operation Date: 07/23/24 16:30 Actual Procedures p Colonoscopy Biopsy Cytology - Paco West MD Ordered Studies Laboratory Results WBC 7.16 K/ul (4.8-10.8) 07/25/24 06:18 RBC 2.88 M/uL (4.20-5.40) L 07/25/24 06:18 Hgb 8.2 g/dl (12.0-16.0) L 07/25/24 06:18 POC Hgb 5.8 g/dl (12.0-16.0) L* 07/18/24 23:12 Hct 26.6 % (37.0-47.0) L 07/25/24 06:18 POC Hct 17 % (37-47) L* 07/18/24 23:12 MCV 92.4 fL (80.0-100.0) 07/25/24 06:18 MCH 28.5 pg (25.0-34.0) 07/25/24 06:18 MCHC 30.8 g/dL (32.0-36.0) L 07/25/24 06:18 RDW Std Deviation 60.5 fL (36.4-46.3) H 07/25/24 06:18 RDW Coeff of Valentina 18.6 % (11.5-14.5) H 07/25/24 06:18 Plt Count 179 K/uL (130-400) 07/25/24 06:18 MPV 11.0 fL (9.4-12.4) 07/25/24 06:18 Immature Gran % (Auto) 0.4 % 07/21/24 05:47 Neut % (Auto) 73.2 % 07/21/24 05:47 Lymph % (Auto) 16.8 % 07/21/24 05:47 Dupage % (Auto) 8.1 % 07/21/24 05:47 Eos % (Auto) 1.0 % 07/21/24 05:47 Baso % (Auto) 0.5 % 07/21/24 05:47 Neut # (Auto) 5.96 K/uL (1.40-6.50) 07/21/24 05:47 Lymph # (Auto) 1.37 K/uL (1.20-3.40) 07/21/24 05:47 [place] # (Auto) 0.66 K/uL (0.11-0.59) H 07/21/24 05:47 Eos # (Auto) 0.08 K/uL (0.00-0.50) 07/21/24 05:47 Baso # (Auto) 0.04 K/uL (0.00-0.20) 07/21/24 05:47 Immature Gran # (Auto) 0.03 K/uL (0.01-0.20) 07/21/24 05:47 Absolute Nucleated RBC Cancelled 07/20/24 05:30 Nucleated RBC % (auto) Cancelled 07/20/24 05:30 Neutrophils % (Manual) Cancelled 07/20/24 05:30 Band Neutrophils % Cancelled 07/20/24 05:30 Lymphocytes % (Manual) Cancelled 07/20/24 05:30 Prolymphocyte % Cancelled 07/20/24 05:30 Reactive Lymphs % (Man) Cancelled 07/20/24 05:30 Monocytes % (Manual) Cancelled 07/20/24 05:30 Eosinophils % (Manual) Cancelled 07/20/24 05:30 Basophils % (Manual) Cancelled 07/20/24 05:30 Metamyelocytes % (Man) Cancelled 07/20/24 05:30 Myelocytes % (Man) Cancelled 07/20/24 05:30 Promyelocytes % (Man) Cancelled 07/20/24 05:30 Blast Cells % (Manual) Cancelled 07/20/24 05:30 Plasma Cell % (Manual) Cancelled 07/20/24 05:30 Other Cells % Cancelled 07/20/24 05:30 Nucleated RBC % Cancelled 07/20/24 05:30 Neutrophils # (Manual) Cancelled 07/20/24 05:30 Band Neutrophils # Cancelled 07/20/24 05:30 Total Absolute Neuts Cancelled 07/20/24 05:30 Lymphocytes # (Manual) Cancelled 07/20/24 05:30 Prolymphocyte # Cancelled 07/20/24 05:30 Reactive Lymphs # Cancelled 07/20/24 05:30 Total Abs Lymphocytes Cancelled 07/20/24 05:30 Monocytes # (Manual) Cancelled 07/20/24 05:30 Eosinophils # (Manual) Cancelled 07/20/24 05:30 Basophils # (Manual) Cancelled 07/20/24 05:30 Metamyelocytes # (Man) Cancelled 07/20/24 05:30 Myelocytes # (Manual) Cancelled 07/20/24 05:30 Promyelocytes # (Man) Cancelled 07/20/24 05:30 Blast Cells # (Man) Cancelled 07/20/24 05:30 Plasma Cell # (Manual) Cancelled 07/20/24 05:30 Other Cells # Cancelled 07/20/24 05:30 Nucleated RBCs # (Man) Cancelled 07/20/24 05:30 Hypersegmented Neuts Cancelled 07/20/24 05:30 Hyposegmented Neuts Cancelled 07/20/24 05:30 Hypogranular Neuts Cancelled 07/20/24 05:30 Large Granular Lymphs Cancelled 07/20/24 05:30 # Lrg Granular Lymphs Cancelled 07/20/24 05:30 Hairy Cells Cancelled 07/20/24 05:30 Smudge Cells Cancelled 07/20/24 05:30 Toxic Granulation Cancelled 07/20/24 05:30 Toxic Vacuolation Cancelled 07/20/24 05:30 Dohle Bodies Cancelled 07/20/24 05:30 Everardo Rods Cancelled 07/20/24 05:30 Platelet Estimate Cancelled 07/20/24 05:30 Hypogranular Platelets Cancelled 07/20/24 05:30 Giant Platelets Cancelled 07/20/24 05:30 Platelet Satelliting Cancelled 07/20/24 05:30 RBC Morphology Cancelled 07/20/24 05:30 Polychromasia 1+ 07/21/24 05:47 Hypochromasia Cancelled 07/20/24 05:30 Poikilocytosis Cancelled 07/20/24 05:30 Basophilic Stippling Cancelled 07/20/24 05:30 Anisocytosis Cancelled 07/20/24 05:30 Microcytosis Cancelled 07/20/24 05:30 Macrocytosis Cancelled 07/20/24 05:30 Spherocytes Cancelled 07/20/24 05:30 Pappenheimer Bodies Cancelled 07/20/24 05:30 Sickle Cells Cancelled 07/20/24 05:30 Target Cells Cancelled 07/20/24 05:30 Tear Drop Cells Cancelled 07/20/24 05:30 Ovalocytes Cancelled 07/20/24 05:30 Stomatocytes Cancelled 07/20/24 05:30 [place] Bodies Cancelled 07/20/24 05:30 Echinocytes Cancelled 07/20/24 05:30 Acanthocytes (Spur) Cancelled 07/20/24 05:30 Rouleaux Cancelled 07/20/24 05:30 RBC Agglutinates Cancelled 07/20/24 05:30 Schistocytes Cancelled 07/20/24 05:30 Sezary Cell Cancelled 07/20/24 05:30 VBG pH 7.35 (7.36-7.41) L 07/19/24 12:32 VBG pCO2 42 mmHg (38-50) 07/19/24 12:32 VBG pO2 < 20 mmHg 07/19/24 12:32 VBG HCO3 23 mmol/L 07/19/24 12:32 VBG O2 Saturation < 60.0 % 07/19/24 12:32 VBG Base Excess -2.4 mEq/L 07/19/24 12:32 POC Sodium 135 mmol/L (135-144) 07/18/24 23:12 Sodium 136 mmol/L (136-145) 07/25/24 06:18 POC Potassium 4.3 mmol/L (3.3-5.0) 07/18/24 23:12 Potassium 4.0 mmol/L (3.5-5.1) 07/25/24 06:18 POC Chloride 104 mmol/L (101-112) 07/18/24 23:12 Chloride 106 mmol/L (98-107) 07/25/24 06:18 Carbon Dioxide 27 mmol/L (21-32) 07/25/24 06:18 POC Total CO2 15 mmol/L (24-31) L 07/18/24 23:12 Anion Gap 3 (3-11) 07/25/24 06:18 POC Anion Gap 22.0 mmol/L (16-25) 07/18/24 23:12 POC BUN 23 mg/dl (7-18) H 07/18/24 23:12 BUN 8 mg/dl (6-23) 07/25/24 06:18 Creatinine 0.59 mg/dl (0.6-1.2) L 07/25/24 06:18 POC Creatinine 0.9 mg/dl (0.6-1.3) 07/18/24 23:12 Est Cr Clr Drug Dosing 77.1 ml/min 07/25/24 06:18 eGFR 93.93 07/25/24 06:18 Est GFR ( Amer) 103.9 ml/min 07/20/24 05:30 Est GFR (Non-Af Amer) 89.7 ml/min 07/20/24 05:30 BUN/Creatinine Ratio 13.6 (10-20) 07/25/24 06:18 Glucose 96 mg/dl (70-99(Fasting)) 07/25/24 06:18 POC Glucose 151 mg/dl (70-99) H 07/25/24 13:10 POC Glucose (other) 171 mg/dl (70-99) H 07/18/24 23:12 Lactate 1.2 mmol/L (0.4-2.0) 07/19/24 12:32 Calcium 8.4 mg/dl (8.6-10.3) L 07/25/24 06:18 POC Ioniz Calcium Edward 1.18 mmol/l (1.12-1.32) 07/18/24 23:12 Magnesium 1.6 mg/dl (1.7-2.4) L 07/25/24 06:18 Iron 11 mcg/dl (35-150) L 07/21/24 05:47 Unsaturated IBC 277 mcg/dl (155-355) 07/21/24 05:47 Transferrin 227 mg/dl (200-360) 07/21/24 05:47 Ferritin 34.7 ng/ml (8-388) 07/21/24 05:47 Total Bilirubin 0.4 mg/dl (0.2-1.0) 07/18/24 23:04 AST 14 U/L (13-39) 07/18/24 23:04 ALT 10 U/L (7-52) 07/18/24 23:04 Alkaline Phosphatase 46 U/L (34-104) 07/18/24 23:04 Total Creatine Kinase 41 U/L (26-192) 07/18/24 23:04 Troponin I High Sens 7.9 pg/ml (0-14) 07/18/24 23:04 Total Protein 5.9 gm/dl (6.0-8.3) L 07/18/24 23:04 Albumin 3.7 gm/dl (3.4-5.0) 07/18/24 23:04 Globulin 2.2 gm/dl (2.5-4.0) L 07/18/24 23:04 Albumin/Globulin Ratio 1.7 (0.9-2) 07/18/24 23:04 Vitamin B12 1172 pg/ml (180-914) H 07/21/24 05:47 Procalcitonin 0.06 ng/ml (0-0.5) 07/18/24 23:38 TSH 41.701 uIu/ml (0.300-4.500) H 07/18/24 23:04 Free T4 0.68 ng/dl (0.61-1.60) 07/18/24 23:04 Urine Color Yellow 07/18/24 23:16 Urine Appearance Cloudy (Clear) A 07/18/24 23:16 Urine pH 5.0 (4.5-7.5) 07/18/24 23:16 Ur Specific [place] 1.027 (1.000-1.030) 07/18/24 23:16 Urine Protein Trace (Negative) H 07/18/24 23:16 Urine Glucose (UA) Negative (Negative) 07/18/24 23:16 Urine Ketones Trace (Negative) H 07/18/24 23:16 Urine Blood Negative (Negative) 07/18/24 23:16 Urine Nitrite Negative (Negative) 07/18/24 23:16 Urine Bilirubin Negative (Negative) 07/18/24 23:16 Urine Urobilinogen Negative (Negative) 07/18/24 23:16 Ur Leukocyte Esterase 3+ (Negative) H 07/18/24 23:16 Urine WBC (Auto) >50 /hpf (0-5) H 07/18/24 23:16 Urine RBC (Auto) 0-2 /hpf (0-2) 07/18/24 23:16 U Hyaline Cast (Auto) 11-20 /lpf (0-2) H 07/18/24 23:16 U Epithel Cells (Auto) 6-10 /hpf (0-2) H 07/18/24 23:16 Urine Bacteria (Auto) 2+ (None Seen) H 07/18/24 23:16 Adenovirus (PCR) Not Detected (NotDetected) 07/18/24 23:04 B. pertussis DNA (PCR) Not Detected (NotDetected) 07/18/24 23:04 B.parapertussis DNA PCR Not Detected (NotDetected) 07/18/24 23:04 C. pneumoniae DNA (PCR) Not Detected (NotDetected) 07/18/24 23:04 Coronavirus OC43 (PCR) Not Detected (NotDetected) 07/18/24 23:04 Coronavirus HKU1 (PCR) Not Detected (NotDetected) 07/18/24 23:04 Coronavirus 229E (PCR) Not Detected (NotDetected) 07/18/24 23:04 SARS-CoV-2 (PCR) Not Detected (NotDetected) 07/18/24 23:04 Coronavirus NL63 (PCR) Not Detected (NotDetected) 07/18/24 23:04 Human Metapneumovir PCR Not Detected (NotDetected) 07/18/24 23:04 Influenza Type A (PCR) Not Detected (NotDetected) 07/18/24 23:04 Influenza Type B (PCR) Not Detected (NotDetected) 07/18/24 23:04 M. pneumoniae (PCR) Not Detected (NotDetected) 07/18/24 23:04 Parainfluenza 1 (PCR) Not Detected (NotDetected) 07/18/24 23:04 Parainfluenza 2 (PCR) Not Detected (NotDetected) 07/18/24 23:04 Parainfluenza 3 (PCR) Not Detected (NotDetected) 07/18/24 23:04 Parainfluenza 4 (PCR) Not Detected (NotDetected) 07/18/24 23:04 RSV (PCR) Not Detected (NotDetected) 07/18/24 23:04 Entero/Rhino (PCR) Not Detected (NotDetected) 07/18/24 23:04 Blood Parasites ID Cancelled 07/20/24 05:30 Blood Type O Positive 07/18/24 23:21 Blood Type Recheck O Positive 07/18/24 23:55 Antibody Screen NEGATIVE 07/18/24 23:21 Crossmatch See Detail 07/18/24 23:21 Impressions Chest X-Ray 07/18/24 22:53 XR chest 1V portable HISTORY: 74 years-old Female weakness COMPARISON: 12/13/2023 TECHNIQUE: AP view of the chest FINDINGS: Cardiac silhouette is mildly enlarged. Atherosclerosis of the aorta. No pneumothorax, pleural effusion or airspace consolidation. Right shoulder arthroplasty. Degenerative changes of the spine and left shoulder. Calcified right hilar lymph nodes. Right upper abdominal surgical clips. Small hiatal hernia. IMPRESSION: No acute process. ACT 112: Negative or not required by law. The above report was generated using voice recognition software. It may contain grammatical, syntax or spelling errors. Electronically signed by: Chris Harrell M.D. 07/19/2024 6:[address] 07/18/24 22:54 Exam(s): CT HEAD Without Contrast EXAM: CT Head Without Intravenous Contrast CLINICAL HISTORY: AMS. TECHNIQUE: Axial computed tomography images of the head/brain without intravenous contrast. CTDI is 37.32 mGy and DLP is 1772.84 mGy-cm. Automated exposure control was utilized for the study. A dose lowering technique was utilized adhering to the principles of ALARA. COMPARISON: CT head without contrast dated 12/13/2023 FINDINGS: Brain: No intracranial hemorrhage. No significant mass effect. No evidence for cortical infarct. Underlying parenchymal involutional changes and mild periventricular deep white matter hypodense changes, stable. Ventricles: Unremarkable. No ventriculomegaly. Bones/joints: Unremarkable. No acute fracture. Soft tissues: Unremarkable. Vasculature: Similar prominent atherosclerotic calcification of the cavernous and supraclinoid internal carotid arteries and the distal vertebral arteries. Sinuses: Unremarkable as visualized. No acute sinusitis. Mastoid air cells: Unremarkable as visualized. No mastoid effusion. IMPRESSION: No acute intracranial process or significant alteration from the prior examination. Chronic underlying presumed age-related findings, as noted above, not significantly altered. Electronically signed by: Gamal Jackson MD 07/19/24 00:39 AM Abdomen/Pelvis CT 07/18/24 23:13 Exam(s): CT ABDOMEN + PELVIS With Contrast IV Amt: 94 ml opti 320 EXAM: CT Abdomen and Pelvis With Intravenous Contrast CLINICAL HISTORY: nausea, GI bleed. TECHNIQUE: Axial computed tomography images of the abdomen and pelvis with intravenous contrast. CTDI is 37.32 mGy and DLP is 1772.84 mGy-cm. Automated exposure control was utilized for the study. A dose lowering technique was utilized adhering to the principles of ALARA. CONTRAST: Patient received 94 ml opti 320 of IV contrast COMPARISON: No relevant prior studies available. FINDINGS: Limitations: There is respiratory artifact, which degrades image quality on multiple image slices. Lung bases: Unremarkable. No mass. No consolidation. Mediastinum: A small hiatal hernia is noted. 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 The excluded stomach is at least moderately fluid distended. No significant mucosal thickening. However, there appears to be slight hyperenhancement of the excluded stomach. ABDOMEN: Liver: Unremarkable. No mass. Gallbladder and bile ducts: Cholecystectomy. Common bile duct is prominent measuring 13 cm in diameter. No common bile duct stone is seen. Pancreas: Unremarkable. No mass. No ductal dilation. Spleen: Unremarkable. No splenomegaly. Adrenals: Unremarkable. No mass. Kidneys and ureters: Unremarkable. No solid mass. No hydronephrosis. Stomach and bowel: No evidence for focal high-grade bowel obstruction. There is abnormal retained material in nondilated small bowel loops in the inferior abdomen and pelvis. Mild stool burden. Diverticulosis in the distal rectosigmoid colon without definitive focal diverticulitis. PELVIS: Appendix: No findings to suggest acute appendicitis. Bladder: Unremarkable. No mass. Reproductive: Unremarkable as visualized. ABDOMEN and PELVIS: Intraperitoneal space: Unremarkable. No free air. No significant fluid collection. Bones/joints: Compression fractures noted throughout the included thoracolumbar spine with sparing of only L1 level. There is a fracture line noted involving the inferior endplate at T12 level with loss of height centrally, estimated at 70% loss of height centrally. There is sclerosis adjacent to the superior endplate and mild buckling of the posterior cortex. No involvement of pedicles or posterior elements. Multilevel degenerative changes throughout the thoracolumbar spine. Facet hypertrophic changes noted inferiorly. No dislocation. Soft tissues: Mild kidneys edema throughout the superficial soft tissues of the abdomen and pelvis. Vasculature: Unremarkable. No abdominal aortic aneurysm. Lymph nodes: Unremarkable. No enlarged lymph nodes. IMPRESSION: 1. A small hiatal hernia is noted. 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 The excluded stomach is at least moderately fluid distended. No significant mucosal thickening. However, there appears to be slight hyperenhancement of the excluded stomach. Subtle gastritis may be present. 2. No evidence for focal high-grade bowel obstruction. There is abnormal retained material in nondilated small bowel loops in the inferior abdomen and pelvis. Findings suggest enteritis with delayed transit through the small bowel. 3. Mild stool burden. Diverticulosis in the distal rectosigmoid colon without definitive focal diverticulitis. No free intraperitoneal fluid or definite pneumoperitoneum. 4. Compression fractures noted throughout the included thoracolumbar spine with sparing of only L1 level. There is a fracture line noted involving the inferior endplate at T12 level with loss of height centrally, estimated at 70% loss of height centrally. There is sclerosis adjacent to the superior endplate and mild buckling of the posterior cortex. No involvement of pedicles or posterior elements. Findings are consistent with an acute to subacute process. The remaining compression fractures throughout the visualized spine are age indeterminant. 5. Mild kidneys edema throughout the superficial soft tissues of the abdomen and pelvis. Findings suggest mild positive fluid status. 6. Common bile duct is prominent measuring 13 cm in diameter. This is likely related to cholecystectomy. Electronically signed by: Gamal Jackson MD 07/19/24 00:54 AM Hospital Course (1) Encephalopathy: Acute UTI Possible sepsis Metabolic encephalopathy--Resolved -- Blood cultures negative to date --Urine culture not contributory --De-escalate IV cefepime to Rocephin --Mental status seem to be back to baseline --Reorient frequently to minimize delirium Completed antibiotic course Plan to be discharged home. Possible upper GI bleed Possible Acute blood loss anemia Iron deficiency anemia --S/P 3 units PRBC --S/P EGD:Normal esophagus. No evidence of esophagitis or Coleman's mucosa. Z- line regular, 36 cm from the incisors. A gastric bypass was found, characterized by healthy appearing mucosa. Status post gastric bypass with Genet-en-Y. The gastric remnant appeared normal without evidence of marginal ulcer. There was no bleeding. There was no blood in the gastric remnant. The jejunum was normal. No specimens collected. --S/P colonoscopy: A single (solitary) ulcer in the ascending colon. Biopsied. Diverticulosis in the left colon. -- Continue Protonix --Aspirin, Eliquis on hold --Received IV Venofer Appreciate GI input Monitor H&H and transfuse as needed Continue PO iron supplements No anticoagulation for 5 more days Hemoglobin 8.2 today Denies any bleeding issues currently Pathology pending. Advised to follow-up for pathology report as outpatient Other Chronic conditions: Hypothyroidism: TSH significantly elevated with low normal free T4. Levoth yroxine dose increased to 150 mcg daily. Plan to recheck TSH after 6 weeks. Atrial fibrillationEliquis currently on hold; continue metoprolol H/O Peripheral vascular diseaseaspirin on hold, continue statin Hypertension, currently stable - continue metoprolol, Monitor BP Hyperlipidemia, on statin Rx Thyroid cancer status S/P surgery DM II: on oral medications, well-controlled as of recent hemoglobin A1c of 7 last December 2023. Continue insulin while hospitalized Right breast cancer S/P surgery/chemo radiation Chronic lumbar back pain secondary to thoracolumbar compression fractures DVT Px: SCDs re: GI bleed CODE STATUS Full code Disposition Home with home health Total Time Total Time Spent Total Time Spent (In Minutes): 52 minutes Discharge Plan Discharge Items Patient Disposition: Home - Home Health Services Reason For Visit: ANEMIA; GI BLEED Discharge Diagnosis: Upper GI bleed Acute blood loss anemia Urinary tract infection Acute metabolic encephalopathy Abnormal thyroid function test Condition on Discharge: Fair Activity: Per Instructions section Exercise/Sports: Gradually increase as tolerated Non-emergency contact: Primary Care Provider and Parts Room Assistant Call non-emergency contact if: you have any medication questions, your symptoms worsen, your pain is concerning for you and you have a fever Follow-up/Referrals: Maged aKtz MD [Primary Care Provider] - Diet: Carb Consistent or DM2 Addtl Attending Provider Instructions: Follow-up with your primary care physician Dr. Katz in 1 week Follow-up with your senior peoplesoft developer Dr.Niewiarowski DAVENPORT as advised -- Your pathology is pending at the time of discharge. Follow-up with your physician for results. -- You can resume your aspirin, Eliquis on 07/29/2024 if no recurrence of bleeding and hemoglobin stable per your senior peoplesoft developer -- You may require IV Venofer as outpatient to replenish your iron supplements. Discuss with your physician for further recommendations. -- Get blood work complete blood count in 1 week and follow-up with your physician -- You are noted to have elevated TSH while you are hospitalized. Get repeat thyroid function test in 4 to 6 weeks for further instructions. Do not take group of medications belonging to NSAIDs group -can cause worsen your risk for bleeding. List Of these medications includes but not limited to: Diclofenac Ibuprofen, Motrin, Advil Toradol,ketorolac Naproxen, Aleve, Naprosyn You can take Tylenol as needed for pain or fever When buying [id number] pain medications please consult with pharmacy if you are not sure regarding ingredients, as a lot of the pain medications have combination of NSAIDs and Tylenol. Seek immediate medical attention if your symptoms reoccur or worsen Please take all medications as instructed on discharge list below. Please call if you have any questions or problems. You can reach a [facility] hospitalist on duty at [facility] 24 hours a day by calling [phone] Pending Studies at Discharge: Yes Studies:: Pathology report Stand-Alone Forms: My [facility], Smoking Cessation Medications and DC Order Prescriptions: New magnesium chloride [Mag 64] 64 mg Tablet,Delayed Release (Dr/Ec) 64 mg PO BID Qty: 60 1RF levothyroxine [Synthroid] 150 mcg Tablet 150 mcg PO DAILYBB Qty: 30 1RF Continued atorvastatin 40 mg tablet 40 mg PO QAM metoprolol tartrate 25 mg tablet 12.5 mg PO AMHS Rx Instructions: 1/2 tablet dose oxycodone 5 mg tablet 5 mg PO TID Rx Instructions: takes with tylenol...ordered prn but family was instructed by [facility] manager case management for Dr. Katz to give it 3 times a day for control calcitonin (salmon) 200 unit/actuation spray,non-aerosol 1 spray intranasal (ALT) QAM nystatin 100,000 unit/gram powder 1 applic TOPICAL BID Rx Instructions: apply to abdominal folds metformin 500 mg Tablet 1,000 mg PO BIDM lorazepam [Ativan] 0.5 mg Tablet 0.5 mg PO Q8 PRN (Reason: Anxiety) Rx Instructions: not using Ozempic 1 mg/dose (4 mg/3 mL) Pen Injector 1 mg SUBCUT WK Rx Instructions: MONDAYS verapamil 40 mg Tablet 40 mg PO AMHS Qty: 60 0RF cholecalciferol (vitamin D3) 125 mcg (5,000 unit) Tablet 125 mcg PO QAM Qty: 30 0RF cyanocobalamin (vitamin B-12) [Vitamin B-12] 1,000 mcg Tablet Extended Release 1,000 mcg PO QAM sertraline 25 mg tablet 25 mg PO QAM acetaminophen 650 mg Tablet Extended Release 650 mg PO TID Rx Instructions: give with oxycodone lidocaine 4 % adhesive patch,medicated 1 patch topical DAILY Qty: 15 0RF Rx Instructions: may leave on for up to 12 hrs Changed pantoprazole 40 mg Tablet,Delayed Release (Dr/Ec) 40 mg PO BID Qty: 60 1RF ferrous sulfate 325 mg (65 mg iron) Tablet,Delayed Release (Dr/Ec) 325 mg PO BID Qty: 60 1RF Held aspirin 81 mg Tablet,Delayed Release (Dr/Ec) 81 mg PO QAM Hold Instructions: Resume on 07/29/24. Eliquis 5 mg Tablet 5 mg PO AMHS Hold Instructions: Resume on 07/29/24. Discontinued levothyroxine 125 mcg tablet 125 mcg PO DAILYBB Discharge Orders: Discharge Order (Routine); Ordered 07/25/24 Ordered By: Damion Blanchard Admission Data Admit Date/Time: 07/19/24 01:39 Attending Provider: Damion Blanchard Admit Provider: Devyn Roblero Primary Care Provider: Maged Katz Other Providers: Willian Cervantes Other Interventions: Discharge Summary Assessment (RN) Last Done: 07/19/24 16:26
[2024-07-25 15:48] VITALS: BP 123/71; PULSE 70; TEMP 97.9; O2SAT 99
[2024-07-25] MEDS: FERROUS SULFATE 325 MG TAB PO SCH (16:13)
[2024-07-25] MEDS ORDERED: MAGNESIUM CHLORIDE W/CALCIUM 64MG DELAYED REL TAB PO SCH (21:00)
== END 2024-07-25 16:55 | disposition home health service (06) | DRG 871 ==
LOC: ED 22:37 → SUATTDRO 07-19 01:39 → 2S 07-19 01:39 → 2N 07-21 22:53

== ENCOUNTER 2024-09-24 13:09 | Inpatient (IN) ==
--- NOTE | 2024-09-24 14:10 | XRay Report ---
XR hip RT 2V w pelvis CLINICAL HISTORY: fall, rt hip pain, shortened/rotated COMPARISON: Pelvis and right hip radiographs February 01, 2024. FINDINGS: Sacroiliac joints and symphysis pubis are intact. There is an acute comminuted displaced i ntertrochanteric fracture of the right femur. No additional fractures are identified. There is appare nt asymmetric sclerosis and bowing of visualized portions of the right femoral diaphysis. IMPRESSION: 1. Acute comminuted displaced intertrochanteric fracture of the right femur. 2. Apparent asymmetric sclerosis and bowing of the right femoral diaphysis. This may be technical alt eugenio could be further assessed with dedicated right femur radiographs. ACT 112: Negative or not required by law. Electronically signed by: Miles Davis M.D. 09/24/2024 2:08 PM
[2024-09-24] MEDS: ONDANSETRON INJ 2 MG/ML 2 ML VIAL IV STA (14:16)
[2024-09-24] MEDS: MoRPHine SULFATE 4 MG/ML 1 ML CARP\\VIAL IV STA ×2 (14:16→16:47)
--- NOTE | 2024-09-24 14:19 | Emergency Department Note ---
ED Provider Note History of Present Illness Chief Complaint: Fall Stated Complaint: Fall ?Hip fx Time Seen by Provider: 09/24/24 13:50 Source: patient and family Mode of arrival: EMS Limitations: no limitations Patient is a 74-year-old female who presents to the emergency department with complaints of right hip pain. Patient states that her leg gave out on her and she fell down onto her right side and buttocks and has had right hip pain since. Patient denies hitting her head and denies any other injuries from the fall. Patient was unable to get herself up off the ground and yelled for her daughter who called EMS. Patient has shortening and rotation of her right leg. Home Medications Medication Instructions Recorded Confirmed Type apixaban 5 mg tablet (Eliquis) 5 mg PO AMHS 12/13/23 09/24/24 History lorazepam 0.5 mg tablet (Ativan) 0.5 mg PO Q8 PRN Anxiety 12/13/23 09/24/24 History metformin 500 mg tablet 1,000 mg PO BIDM 12/13/23 09/24/24 History aspirin 81 mg tablet,delayed 81 mg PO QAM 02/01/24 09/24/24 History release atorvastatin 40 mg tablet 40 mg PO QAM 02/01/24 09/24/24 History metoprolol tartrate 25 mg tablet 12.5 mg PO AMHS 02/01/24 09/24/24 History cholecalciferol (vitamin D3) 125 125 mcg PO QAM #30 tabs 02/06/24 09/24/24 Rx mcg (5,000 unit) tablet acetaminophen 650 mg 650 mg PO TID ud 03/11/24 09/24/24 History tablet,extended release cyanocobalamin (vitamin B-12) 1,000 mcg PO QAM 03/11/24 09/24/24 History 1,000 mcg tablet,extended release (Vitamin B-12 ER) sertraline 25 mg tablet 25 mg PO QAM 03/11/24 09/24/24 History lidocaine 4 % topical patch 1 patch topical DAILY #15 ea 03/16/24 09/24/24 Rx calcitonin (salmon) 200 1 spray intranasal (ALT) QAM 07/19/24 09/24/24 History unit/actuation nasal spray nystatin 100,000 unit/gram topical 1 applic topical BID 07/19/24 09/24/24 History powder oxycodone 5 mg tablet 5 mg PO TID pain 07/19/24 09/24/24 History ferrous sulfate 325 mg (65 mg 325 mg PO BID #60 tabs 07/25/24 09/24/24 Rx iron) tablet,delayed release levothyroxine 150 mcg tablet 150 mcg PO DAILYBB #30 tabs 07/25/24 09/24/24 Rx (Synthroid) magnesium chloride 64 mg 64 mg PO BID #60 tabs 07/25/24 09/24/24 Rx (magnesium chloride) tablet,delayed release (Mag 64) pantoprazole 40 mg tablet,delayed 40 mg PO BID #60 tabs 07/25/24 09/24/24 Rx release verapamil 40 mg tablet 40 mg PO . ON HOLD 09/24/24 09/24/24 History Allergies Allergy/AdvReac Type Severity Reaction Status Date / Time Penicillins Allergy Intermediate Hives Verified 09/24/24 16:29 Sulfa (Sulfonamide AdvReac Severe SEVERE Verified 09/24/24 16:29 Antibiotics) NAUSEA Past Med/Surg History Problem List (Updated 09/30/24 @ 01:42 by MICH Stewart) Mixed hyperlipidemia Hypothyroidism (acquired) Hemorrhagic shock Atrial fibrillation with RVR PAF (paroxysmal atrial fibrillation) Intertrochanteric fracture of right hip (Acute) Weakness (Acute) Symptomatic anemia (Acute) Hypomagnesemia (Acute) Lightheadedness GERD (gastroesophageal reflux disease) Vascular dementia Hypothyroidism (Acute) History of stroke Medical History Encounter for pre-operative examination Compression fracture of lumbosacral spine DAVIS (obstructive sleep apnea) Aortic stenosis CVA (cerebral vascular accident) Anemia Encephalopathy Persistent atrial fibrillation Diabetes mellitus Acute UTI History of breast cancer Surgical History Hx of cholecystectomy H/O section H/O gastric bypass Left ulnar fracture s/p surgical repair 01/02/24 at [facility] Family History Other Breast cancer Diabetes Hypertension Social History Smoking Status: Never smoker Hx Alcohol Use: Yes Hx Substance Use: No Preferred Language: Slovak Communication Ability: Effective 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: No Beliefs That Will Affect Care: None Current Living Situation: Alone Current Living Situation Comment: daughter lives across the street Feels Safe at Home: Yes Assistive Devices: Cane and Walker Physical Exam Vital Signs Vital Signs - 24 hr 09/24/24 13:24 09/24/24 13:55 Temperature 36.4 C L Temperature Source Oral Pulse Rate 72 74 Respiratory Rate 16 Blood Pressure 152/78 H Blood Pressure Mean 102 Pulse Oximetry 100 Oxygen Delivery Method Room Air Sepsis Recent Fever Within 48 Hours No Sepsis New/Unexplained Change in Mental Status No Sepsis Action Taken by Nursing No Action Required VITAL SIGNS - Vital signs and nursing notes were reviewed. GENERAL -74-year-old female appearing their stated age, who is in no acute distress. Communicates well with provider and answers questions appropriately. HEAD - Normocephalic, Atraumatic. No depressed skull fractures palpable. EYES - PERRL with EOMI bilaterally. Sclera anicteric. Conjunctiva pink and moist with no injection NECK - Neck with FROM. Supple to palpation. No lymphadenopathy noted. LUNGS - Chest wall symmetric without accessory muscle use, intercostals retractions, or central cyanosis. Normal vesicular breath sounds CTA B/L. No wheezes, rales, or rhonchi appreciated. CARDIAC - RRR with S1/S2. No murmur, rubs, or gallops appreciated. EXTREMITIES -patient has obvious shortening and rotation of her right leg. Patient is neurovascularly intact to the right leg. NEUROLOGIC -Sensory intact to light touch throughout. PSYCH - A&Ox3 and cooperates fully with examiner. Pt is very pleasant and interacts well with examiner Course Administered Medications Acetaminophen (Acetaminophen 500 Mg Tab) 1,000 mg PO Q8H [facility] Stop: 10/24/24 21:05 Last Admin: 09/29/24 21:13 Dose: 1,000 mg Documented By: Admin: 09/29/24 12:44 Dose: 1,000 mg Documented By: Admin: 09/29/24 05:48 Dose: 1,000 mg Documented By: Admin: 09/28/24 20:07 Dose: 1,000 mg Documented By: Admin: 09/28/24 13:06 Dose: 1,000 mg Documented By: Admin: 09/28/24 05:38 Dose: 1,000 mg Documented By: Admin: 09/27/24 20:22 Dose: 1,000 mg Documented By: Admin: 09/27/24 12:20 Dose: 1,000 mg Documented By: Admin: 09/27/24 06:07 Dose: 1,000 mg Documented By: Admin: 09/26/24 20:28 Dose: 1,000 mg Documented By: Admin: 09/26/24 12:06 Dose: 1,000 mg Documented By: Admin: 09/26/24 05:40 Dose: 1,000 mg Documented By: Admin: 09/25/24 21:22 Dose: 1,000 mg Documented By: Admin: 09/25/24 13:29 Dose: 1,000 mg Documented By: Admin: 09/25/24 04:52 Dose: 1,000 mg Documented By: MNEstevan Admin: 09/24/24 21:45 Dose: 1,000 mg Documented By: LILLY Amiodarone HCl (Amiodarone 200 Mg Tab) 200 mg PO BIDM [facility] Stop: 10/25/24 16:59 Last Admin: 09/29/24 16:58 Dose: 200 mg Documented By: Admin: 09/29/24 08:24 Dose: 200 mg Documented By: Admin: 09/28/24 17:03 Dose: 200 mg Documented By: Admin: 09/28/24 08:12 Dose: 200 mg Documented By: Admin: 09/27/24 16:51 Dose: 200 mg Documented By: Admin: 09/27/24 08:44 Dose: 200 mg Documented By: Admin: 09/26/24 17:28 Dose: 200 mg Documented By: Admin: 09/26/24 09:51 Dose: 200 mg Documented By: Admin: 09/25/24 16:12 Dose: 200 mg Documented By: ROSA Aspirin (Aspirin 81 Mg Ectab) 81 mg PO QA [facility] Stop: 10/26/24 08:59 Last Admin: 09/29/24 08:23 Dose: 81 mg Documented By: Admin: 09/28/24 08:12 Dose: 81 mg Documented By: Admin: 09/27/24 08:44 Dose: 81 mg Documented By: Admin: 09/26/24 08:34 Dose: 81 mg Documented By: MIRACLE Atorvastatin Calcium (Atorvastatin 40 Mg Tab) 40 mg PO QA [facility]ENN[facility] Stop: 10/26/24 08:59 Last Admin: 09/29/24 08:24 Dose: 40 mg Documented By: Admin: 09/28/24 08:13 Dose: 40 mg Documented By: Admin: 09/27/24 08:44 Dose: 40 mg Documented By: Admin: 09/26/24 08:34 Dose: 40 mg Documented By: MIRACLE Cyanocobalamin (Cyanocobalamin (B-12) 500 Mcg Tablet) 1,000 mcg PO QAM [facility]ENN[facility] Stop: 10/26/24 08:59 Last Admin: 09/29/24 08:23 Dose: 1,000 mcg Documented By: Admin: 09/28/24 08:12 Dose: 1,000 mcg Documented By: Admin: 09/27/24 08:44 Dose: 1,000 mcg Documented By: Admin: 09/26/24 08:34 Dose: 1,000 mcg Documented By: MIRACLE Ferrous Sulfate (Ferrous Sulfate 325 Mg Tab) 325 mg PO BID [facility] Stop: 10/25/24 20:59 Last Admin: 09/29/24 21:13 Dose: 325 mg Documented By: Admin: 09/29/24 08:24 Dose: 325 mg Documented By: Admin: 09/28/24 20:05 Dose: 325 mg Documented By: Admin: 09/28/24 08:13 Dose: 325 mg Documented By: Admin: 09/27/24 20:25 Dose: 325 mg Documented By: Admin: 09/27/24 08:44 Dose: 325 mg Documented By: Admin: 09/26/24 20:29 Dose: 325 mg Documented By: Admin: 09/26/24 08:34 Dose: 325 mg Documented By: Admin: 09/25/24 21:24 Dose: 325 mg Documented By: KALINA Insulin Aspart (Insulin Aspart Per Unit Charge) 0 units SC ACHS [facility] Stop: 10/25/24 00:00 Last Admin: 09/29/24 21:13 Dose: 1 units Documented By: HANK Co-signed By: KEITH Admin: 09/29/24 17:21 Dose: 3 units Documented By: RUTHY Co-signed By: TRICIA Admin: 09/29/24 12:15 Dose: 2 units Documented By: RUTHY Co-signed By: TRICIA Admin: 09/29/24 08:30 Dose: 4 units Documented By: RUTHY Co-signed By: TRICIA Admin: 09/28/24 20:57 Dose: 1 units Documented By: KALINA Co-signed By: KATELIN Admin: 09/28/24 17:50 Dose: 5 units Documented By: RUTHY Co-signed By: ABIOLA Admin: 09/27/24 16:50 Dose: Not Given Documented By: Admin: 09/27/24 12:20 Dose: Not Given Documented By: Admin: 09/27/24 08:45 Dose: Not Given Documented By: Admin: 09/26/24 20:30 Dose: 4 units Documented By: KALINA Co-signed By: JULIO Admin: 09/26/24 17:26 Dose: 8 units Documented By: MIRCALE Co-signed By: ZARA Admin: 09/26/24 12:07 Dose: 11 units Documented By: MIRACLE Co-signed By: DEBORAH Admin: 09/26/24 08:31 Dose: 6 units Documented By: MIRACLE Co-signed By: RUTHY Admin: 09/25/24 21:19 Dose: 2 units Documented By: KALINA Co-signed By: JULIO Levothyroxine Sodium (Levothyroxine Sodium 150 Mcg Tablet) 150 mcg PO DAILYBB [facility] Stop: 10/26/24 06:29 Last Admin: 09/29/24 05:48 Dose: 150 mcg Documented By: Admin: 09/28/24 05:38 Dose: 150 mcg Documented By: Admin: 09/27/24 06:07 Dose: 150 mcg Documented By: Admin: 09/26/24 05:40 Dose: 150 mcg Documented By: KALINA Lidocaine (Lidocaine 5% 1 Patch) 1 patch TD DAILY [facility] Stop: 10/26/24 08:59 Last Admin: 09/29/24 08:31 Dose: Not Given Documented By: Admin: 09/28/24 08:18 Dose: Not Given Documented By: Admin: 09/27/24 08:43 Dose: 1 patch Documented By: Admin: 09/26/24 08:34 Dose: 1 patch Documented By: MIRACLE Lorazepam (Lorazepam 0.5 Mg Tab) 0.5 mg PO Q8 PRN PRN Reason: Anxiety Stop: 10/25/24 10:48 Last Admin: 09/28/24 20:08 Dose: 0.5 mg Documented By: Admin: 09/27/24 20:22 Dose: 0.5 mg Documented By: Admin: 09/26/24 20:27 Dose: 0.5 mg Documented By: KALINA Magnesium Chloride (Magnesium Chloride W/Calcium 64mg Delayed Rel Tab) 64 mg PO BID [facility] Stop: 10/25/24 20:59 Last Admin: 09/29/24 21:13 Dose: 64 mg Documented By: Admin: 09/29/24 08:24 Dose: 64 mg Documented By: Admin: 09/28/24 20:05 Dose: 64 mg Documented By: Admin: 09/28/24 08:12 Dose: 64 mg Documented By: Admin: 09/27/24 20:25 Dose: 64 mg Documented By: Admin: 09/27/24 08:44 Dose: 64 mg Documented By: Admin: 09/26/24 20:29 Dose: 64 mg Documented By: Admin: 09/26/24 08:34 Dose: 64 mg Documented By: Admin: 09/25/24 21:24 Dose: 64 mg Documented By: KALINA Metformin HCl (Metformin Hcl 500 Mg Tab) 1,000 mg PO BIDM [facility] Stop: 10/27/24 07:59 Last Admin: 09/29/24 16:56 Dose: 1,000 mg Documented By: Admin: 09/29/24 08:23 Dose: 1,000 mg Documented By: Admin: 09/28/24 17:02 Dose: 1,000 mg Documented By: Admin: 09/28/24 08:12 Dose: 1,000 mg Documented By: JOSE MARTINR Admin: 09/27/24 16:50 Dose: Not Given Documented By: Admin: 09/27/24 09:14 Dose: Not Given Documented By: Metoprolol Succinate (Metoprolol Succ 25mg Ext Rel Tab) 12.5 mg PO QAM [facility] Stop: 10/26/24 10:44 Last Admin: 09/29/24 08:24 Dose: 12.5 mg Documented By: Admin: 09/28/24 08:17 Dose: 12.5 mg Documented By: JOSE MARTINR Admin: 09/27/24 08:44 Dose: 12.5 mg Documented By: Admin: 09/26/24 11:22 Dose: 12.5 mg Documented By: MIRACLE Miconazole Nitrate (Miconazole Nitrate Powder 85 Gm) 1 appln EXT PRN PRN PRN Reason: Affected Skin Folds Stop: 10/26/24 17:30 Last Admin: 09/28/24 20:08 Dose: 1 appln Documented By: Admin: 09/26/24 20:33 Dose: 1 appln Documented By: KALINA Miscellaneous (Carbohydrates For Hypoglycemia ) 15 - 30 gm PO UD PRN PRN Reason: Hypoglycemia Protocol Stop: 10/24/24 21:55 Last Admin: 09/27/24 16:39 Dose: 30 gm Documented By: [id number] Morphine Sulfate (Morphine Sulfate 2 Mg/Ml Carp) 2 mg IV Q4H PRN PRN Reason: Severe Pain (Scale 7, 8, 9,10) Stop: 10/08/24 21:05 Last Admin: 09/28/24 11:38 Dose: 2 mg Documented By: Admin: 09/27/24 06:08 Dose: 2 mg Documented By: Admin: 09/27/24 02:00 Dose: 2 mg Documented By: Admin: 09/26/24 17:18 Dose: 2 mg Documented By: Admin: 09/26/24 12:13 Dose: 2 mg Documented By: Admin: 09/26/24 05:54 Dose: 2 mg Documented By: Admin: 09/25/24 22:33 Dose: 2 mg Documented By: Admin: 09/25/24 18:27 Dose: 2 mg Documented By: MIRACLE Oxycodone HCl (Oxycodone Hcl Ir 5 Mg Tab (Immediate Release)) 5 mg PO Q6H PRN PRN Reason: Moderate Pain (Scale 4, 5, 6) Stop: 10/08/24 21:05 Last Admin: 09/25/24 01:41 Dose: 5 mg Documented By: LILLY Oxycodone HCl (Oxycodone Hcl Ir 5 Mg Tab (Immediate Release)) 5 mg PO TID [facility] Stop: 10/09/24 13:59 Last Admin: 09/29/24 21:12 Dose: 5 mg Documented By: Admin: 09/29/24 12:45 Dose: 5 mg Documented By: Admin: 09/29/24 08:31 Dose: 5 mg Documented By: Admin: 09/28/24 20:06 Dose: 5 mg Documented By: Admin: 09/28/24 13:06 Dose: 5 mg Documented By: JOSE MARTINR Admin: 09/28/24 08:20 Dose: 5 mg Documented By: JOSE MARTINR Admin: 09/27/24 20:21 Dose: 5 mg Documented By: Admin: 09/27/24 15:03 Dose: 5 mg Documented By: Admin: 09/27/24 09:40 Dose: 5 mg Documented By: Admin: 09/26/24 20:27 Dose: 5 mg Documented By: Admin: 09/26/24 14:27 Dose: 5 mg Documented By: Admin: 09/26/24 08:31 Dose: 5 mg Documented By: Admin: 09/25/24 21:21 Dose: 5 mg Documented By: Admin: 09/25/24 13:29 Dose: 5 mg Documented By: ROSA Pantoprazole Sodium (Pantoprazole 40 Mg Tab) 40 mg PO BID [facility] Stop: 10/25/24 20:59 Last Admin: 09/29/24 21:13 Dose: 40 mg Documented By: Admin: 09/29/24 08:23 Dose: 40 mg Documented By: Admin: 09/28/24 20:07 Dose: 40 mg Documented By: Admin: 09/28/24 08:11 Dose: 40 mg Documented By: Admin: 09/27/24 20:25 Dose: 40 mg Documented By: Admin: 09/27/24 08:44 Dose: 40 mg Documented By: Admin: 09/26/24 20:29 Dose: 40 mg Documented By: Admin: 09/26/24 08:34 Dose: 40 mg Documented By: Admin: 09/25/24 21:25 Dose: 40 mg Documented By: KALINA Sertraline HCl (Sertraline Hcl 50 Mg Tablet) 25 mg PO QAM [facility] Stop: 10/26/24 08:59 Last Admin: 09/29/24 08:24 Dose: 25 mg Documented By: JOSE MARTINR Admin: 09/28/24 08:13 Dose: 25 mg Documented By: Admin: 09/27/24 08:44 Dose: 25 mg Documented By: Admin: 09/26/24 08:34 Dose: 25 mg Documented By: MIRACLE Vitamin D (Cholecalciferol 125 Mcg (5,000 Units) Tab) 125 mcg PO QAM [facility] Stop: 10/26/24 08:59 Last Admin: 09/29/24 08:24 Dose: 125 mcg Documented By: JOSE MARTINR Admin: 09/28/24 08:13 Dose: 125 mcg Documented By: JOSE MARTINR Admin: 09/27/24 08:44 Dose: 125 mcg Documented By: Admin: 09/26/24 08:34 Dose: 125 mcg Documented By: MIRACLE Discontinued Medications Amiodarone HCl/Dextrose (Amiodarone 150mg / 100ml D5w) Confirm Administered Dose 150 mg IV .STK-MED ONE Stop: 09/24/24 18:27 Last Admin: 09/24/24 18:29 Dose: 150 mg Documented By: TRICIA(2) Co-signed By: MARLENI Bupivacaine HCl/Epinephrine Bitart (Bupivacaine/Epinephrine 0.25% 1:200,000 30 Ml Vial) 30 ml INJ ONCE ONE Stop: 09/25/24 09:33 Last Admin: 09/25/24 09:32 Dose: 30 ml Documented By: COLT Cyclobenzaprine HCl (Cyclobenzaprine Hcl 10 Mg Tab) 10 mg PO NOW STA Stop: 09/27/24 05:47 Last Admin: 09/27/24 06:07 Dose: 10 mg Documented By: KALINA Digoxin (Digoxin 500 Mcg/2 Ml Amp) Confirm Administered Dose 500 mcg IV .STK-MED ONE Stop: 09/24/24 18:23 Last Admin: 09/24/24 18:35 Dose: Not Given Documented By: TRICIA(2) Furosemide (Furosemide Inj 20 Mg/2 Ml Vial) 20 mg IV ONE ONE Stop: 09/28/24 12:08 Last Admin: 09/28/24 13:06 Dose: 20 mg Documented By: RUTHY Furosemide (Furosemide Inj 20 Mg/2 Ml Vial) 20 mg IV ONE ONE Stop: 09/29/24 10:58 Last Admin: 09/29/24 11:35 Dose: 20 mg Documented By: RUTHY Sodium Chloride (Nss) 500 mls @ 999 mls/hr IV .Q31M ONE Stop: 09/24/24 18:02 Last Infusion: 09/24/24 21:37 Dose: Infused Documented By: Admin: 09/24/24 18:34 Dose: 999 mls/hr Documented By: TRICIA(2) Sodium Chloride (Nss) 500 mls @ 999 mls/hr IV .Q31M ONE Stop: 09/24/24 18:08 Last Admin: 09/24/24 18:34 Dose: Not Given Documented By: TRICIA(2) Digoxin 500 mcg/ Syringe 10 mls @ 2 mls/min IV NOW STA Stop: 09/24/24 18:02 Last Admin: 09/24/24 18:32 Dose: Not Given Documented By: TRICIA(2) Sodium Chloride (Nss) 1,000 mls @ 999 mls/hr IV .Q1H1M ONE Stop: 09/24/24 19:17 Last Infusion: 09/24/24 21:36 Dose: Infused Documented By: MNEstevan Admin: 09/24/24 18:34 Dose: 999 mls/hr Documented By: TRICIA(2) Amiodarone HCl/Dextrose (Nexterone / D5w) 150 mg in 100 mls @ 600 mls/hr IV NOW STA Stop: 09/24/24 18:45 Last Admin: 09/24/24 18:43 Dose: Not Given Documented By: TRICIA(2) Amiodarone HCl/Dextrose (Nexterone / D5w) 360 mg in 200 mls @ 33.333 mls/hr IV ONE ONE Stop: 09/25/24 00:45 Last Infusion: 09/25/24 00:18 Dose: Infused Documented By: LILLY Co-signed By: DUSTIN Admin: 09/24/24 18:51 Dose: 1 mg/min, 33.3 mls/hr Documented By: TRICIA(2) Co-signed By: MR Amiodarone HCl/Dextrose (Nexterone / D5w) 360 mg in 200 mls @ 16.667 mls/hr IV .Q12H [facility] Stop: 10/25/24 00:44 Last Infusion: 09/25/24 10:16 Dose: Infused Documented By: LAF Co-signed By: WS Admin: 09/25/24 00:02 Dose: 0.5 mg/min, 16.7 mls/hr Documented By: LILLY Co-signed By: ASIA Prothrombin Complex Concent ( (Human) 2,000 units/ Syringe) 80 mls @ 10 mls/min IV TODAY@1930 ONE; Protocol Stop: 09/24/24 19:37 Last Admin: 09/24/24 19:46 Dose: 10 mls/min Documented By: ALEJANDRA Cefazolin Sodium (Ancef 2000mg) 2,000 mg in 15 mls @ 3.75 mls/min IV PREOP BRENNEN; Protocol Stop: 09/26/24 05:59 Last Admin: 09/25/24 08:12 Dose: 3.75 mls/min Documented By: SHILA Pantoprazole Sodium (Protonix) 40 mg in 10 mls @ 5 mls/min IV BID [facility] Stop: 10/24/24 21:29 Last Admin: 09/25/24 10:11 Dose: 5 mls/min Documented By: Admin: 09/24/24 22:06 Dose: 5 mls/min Documented By: LILLY Magnesium Sulfate/Dextrose (Magnesium Sulfate / D5w) 1 gm in 100 mls @ 50 mls/hr IV Q2H [facility]ENN[facility] Stop: 09/25/24 13:59 Last Infusion: 09/25/24 15:59 Dose: Infused Documented By: Admin: 09/25/24 13:29 Dose: 50 mls/hr Documented By: Infusion: 09/25/24 13:29 Dose: Infused Documented By: Admin: 09/25/24 12:02 Dose: 50 mls/hr Documented By: Infusion: 09/25/24 12:02 Dose: Infused Documented By: Admin: 09/25/24 10:11 Dose: 50 mls/hr Documented By: Infusion: 09/25/24 07:54 Dose: Infused Documented By: Admin: 09/25/24 06:20 Dose: 50 mls/hr Documented By: LILLY Cefazolin Sodium (Ancef 2000mg) 2,000 mg in 15 mls @ 3.75 mls/min IV Q8H BRENNEN; Protocol Stop: 09/26/24 00:03 Last Admin: 09/26/24 00:25 Dose: 3.75 mls/min Documented By: Admin: 09/25/24 15:52 Dose: 3.75 mls/min Documented By: ROSA Insulin Aspart (Insulin Aspart Per Unit Charge) 0 units SC Q6 [facility] Stop: 10/25/24 00:00 Last Admin: 09/25/24 16:52 Dose: 6 units Documented By: ROSA Co-signed By: NATHANIEL Admin: 09/25/24 13:29 Dose: 2 units Documented By: ROSA Co-signed By: STAN Admin: 09/25/24 06:19 Dose: 3 units Documented By: LILLY Co-signed By: JAVIER Admin: 09/24/24 23:29 Dose: 6 units Documented By: LILLY Co-signed By: ASIA Insulin Glargine (Lantus Per Unit Charge) 20 units SC ONE ONE Stop: 09/26/24 14:46 Last Admin: 09/26/24 15:01 Dose: 20 units Documented By: MIRACLE Co-signed By: RUTHY Ioversol (Optiray 320 100ml) 92 ml IV ONCE ONE Stop: 09/24/24 19:34 Last Admin: 09/24/24 19:33 Dose: 92 ml Documented By: SANJIV Metoprolol Tartrate (Metoprolol Tartrate 1 Mg/Ml Vial) 5 mg IV NOW STA Stop: 09/24/24 17:27 Last Admin: 09/24/24 18:31 Dose: Not Given Documented By: TRICIA(2) Miscellaneous (Icu Protocol For Hyperglycemia) 1 each N/A ACHS BRENNEN Stop: 09/26/24 21:05 Last Admin: 09/24/24 22:02 Dose: Not Given Documented By: MNEstevan Miscellaneous Information (Dc All Anticoagulants ) 1 each N/A NOW STA Stop: 09/24/24 18:59 Last Admin: 09/24/24 21:32 Dose: Not Given Documented By: LILLY Morphine Sulfate (Morphine Sulfate 4 Mg/Ml 1 Ml Carp\Vial) 4 mg IV NOW STA Stop: 09/24/24 14:12 Last Admin: 09/24/24 14:16 Dose: 4 mg Documented By: BONY Morphine Sulfate (Morphine Sulfate 4 Mg/Ml 1 Ml Carp\Vial) 3 mg IV NOW STA Stop: 09/24/24 16:22 Last Admin: 09/24/24 16:47 Dose: 3 mg Documented By: MARLENI Ondansetron HCl (Ondansetron Inj 2 Mg/Ml 2 Ml Vial) 4 mg IV NOW STA Stop: 09/24/24 14:12 Last Admin: 09/24/24 14:16 Dose: 4 mg Documented By: BONY Oxycodone HCl (Oxycodone Hcl Ir 5 Mg Tab (Immediate Release)) 5 mg PO NOW STA Stop: 09/26/24 00:22 Last Admin: 09/26/24 00:29 Dose: 5 mg Documented By: KALINA Medical Decision Making Differential Diagnosis Hip fracture, dislocation, femur fracture, ligamentous injury, soft tissue injury, among others Medical Records Attestation: I reviewed the patient's medical records. Home Medications was personally reviewed by me Laboratory Data Attestation: I reviewed the patient's lab results. 09/29/24 07:38 09/29/24 07:38 Lab Results 09/24/24 Range/Units 13:25 WBC 10.28 (4.8-10.8) K/ul RBC 2.73 L (4.20-5.40) M/uL Hgb 8.2 L (12.0-16.0) g/dl Hct 27.5 L (37.0-47.0) % MCV 100.7 H (80.0-100.0) fL MCH 30.0 (25.0-34.0) pg MCHC 29.8 L (32.0-36.0) g/dL RDW Std Deviation 55.4 H (36.4-46.3) fL RDW Coeff of Valentina 14.9 H (11.5-14.5) % Plt Count 193 (130-400) K/uL MPV 11.8 (9.4-12.4) fL Immature Gran % (Auto) 0.6 % Neut % (Auto) 79.8 % Lymph % (Auto) 11.7 % [place] % (Auto) 6.9 % Eos % (Auto) 0.3 % Baso % (Auto) 0.7 % Neut # (Auto) 8.21 H (1.40-6.50) K/uL Lymph # (Auto) 1.20 (1.20-3.40) K/uL [place] # (Auto) 0.71 H (0.11-0.59) K/uL Eos # (Auto) 0.03 (0.00-0.50) K/uL Baso # (Auto) 0.07 (0.00-0.20) K/uL Immature Gran # (Auto) 0.06 (0.01-0.20) K/uL PT 12.5 H (9.0-12.0) Seconds INR 1.2 H (0.9-1.1) APTT 23 (21-31) Seconds PTT Ratio 0.9 Sodium 140 (136-145) mmol/L Potassium 3.7 (3.5-5.1) mmol/L Chloride 112 H (98-107) mmol/L Carbon Dioxide 20 L (21-32) mmol/L Anion Gap 8 (3-11) BUN 17 (6-23) mg/dl Creatinine 0.61 (0.6-1.2) mg/dl Est Cr Clr Drug Dosing 76.1 ml/min eGFR 93.17 BUN/Creatinine Ratio 27.9 H (10-20) Glucose 207 H (70-99(Fasting)) mg/dl Calcium 8.5 L (8.6-10.3) mg/dl Total Bilirubin 0.4 (0.2-1.0) mg/dl AST 21 (13-39) U/L ALT 20 (7-52) U/L Alkaline Phosphatase 55 (34-104) U/L Total Creatine Kinase 73 (26-192) U/L Troponin I High Sens 4.8 (0-14) pg/ml Total Protein 5.3 L (6.0-8.3) gm/dl Albumin 3.3 L (3.4-5.0) gm/dl Globulin 2.0 L (2.5-4.0) gm/dl Albumin/Globulin Ratio 1.7 (0.9-2) Imaging Data Radiologist's Impression: Hip/Pelvis X-Ray 09/24/24 13:24 XR hip RT 2V w pelvis CLINICAL HISTORY: fall, rt hip pain, shortened/rotated COMPARISON: Pelvis and right hip radiographs February 01, 2024. FINDINGS: Sacroiliac joints and symphysis pubis are intact. There is an acute comminuted displaced intertrochanteric fracture of the right femur. No additional fractures are identified. There is apparent asymmetric sclerosis and bowing of visualized portions of the right femoral diaphysis. IMPRESSION: 1. Acute comminuted displaced intertrochanteric fracture of the right femur. 2. Apparent asymmetric sclerosis and bowing of the right femoral diaphysis. This may be technical although could be further assessed with dedicated right femur radiographs. ACT 112: Negative or not required by law. Electronically signed by: Miles Davis M.D. 09/24/2024 2:08 PM [facility] Narrative Patient is a 74-year-old female who presents to the emergency department with complaints of right hip pain. Patient states that her leg gave out on her and she fell down onto her right side and buttocks and has had right hip pain since. Patient denies hitting her head and denies any other injuries from the fall. Patient was unable to get herself up off the ground and yelled for her daughter who called EMS. Patient has shortening and rotation of her right leg. Patient was evaluated by myself and findings were noted in physical exam above. Patient was ordered IV, lab work, and an x-ray of the right hip and pelvis. Patient's lab work resulted and was unremarkable. Patient's x-ray was interpreted by radiology to show an acute comminuted displaced intertrochanteric fracture of the right femur. I reached out to orthopedics and spoke with them regarding the patient's fracture. I spoke with Dr. Luna who stated that he would see the patient when she is admitted and likely operate tomorrow but due to the patient's age and medical conditions that she should be admitted under the hospitalist service. I spoke with the [facility] hospitalist group regarding this patient and gave them a full report on the patient's chief complaint, current status, current vitals and results of her imaging and lab work. The patient will be admitted under Dr. Marin's service. Please refer to the [facility] hospitalist group's documentation and Dr. Luna's documentation for further evaluation and management of this patient. Impression Intertrochanteric fracture of right hip Discharge Plan Visit Data Chief Complaint: Fall Stated Complaint: Fall ?Hip fx ED Provider: Kendy Reynolds ED Midlevel Provider: Kate Moreland Discharge Problem: Intertrochanteric fracture of right hip Patient Disposition: Admitted As Inpatient Discharge Instructions Interventions: ED Discharge Assessment Last Done: 09/24/24 20:47
[2024-09-24 14:35] LABS: Basophils # (auto) 0.07 K/uL (0.00-0.20); Basophils % (auto) 0.7 %; Eosinophils # (auto) 0.03 K/uL (0.00-0.50); Eosinophils % (auto) 0.3 %; Hematocrit (blood only) 27.5 % (37.0-47.0); Hemoglobin 8.2 g/dl (12.0-16.0); Immature Granulocytes # (auto) 0.06 K/uL (0.01-0.20); Immature Granulocytes % (auto) 0.6 %; Lymphocytes % (auto) 11.7 %; Mean Corpuscular Hgb Conc 29.8 g/dL (32.0-36.0); Mean Corpuscular Volume 100.7 fL (80.0-100.0); Mean Platelet Volume 11.8 fL (9.4-12.4); Monocytes # (auto) 0.71 K/uL (0.11-0.59); Monocytes % (auto) 6.9 %; Neutrophils # (auto) 8.21 K/uL (1.40-6.50); Neutrophils % (auto) 79.8 %; Platelet Count 193 K/uL (130-400); RDW Coefficient of Variation 14.9 % (11.5-14.5); RDW Standard Deviation 55.4 fL (36.4-46.3); Red Blood Count 2.73 M/uL (4.20-5.40); White Blood Count 10.28 K/ul (4.8-10.8)
[2024-09-24 14:47] LABS: Albumin Level 3.3 gm/dl (3.4-5.0); Bilirubin,Total 0.4 mg/dl (0.2-1.0); Calcium 8.5 mg/dl (8.6-10.3); Potassium 3.7 mmol/L (3.5-5.1)
--- NOTE | 2024-09-24 14:49 | XRay Report ---
XR knee RT 1 or 2V routine HISTORY: 74 years-old Female fall acute pain of the right knee status post fall COMPARISON: None TECHNIQUE: 2 views of the right knee FINDINGS: Arterial calcifications demineralized appearance of the bones. There is mild tricompartmental osteoar thritis. Mild circumferential soft tissue swelling. No large joint effusion. Questioned mild articula r depression in the lateral tibial plateau. IMPRESSION: 1. Equivocal mild articular depression of the lateral tibial plateau may be secondary to positioning as there is no associated joint effusion. Findings could be further evaluated with CT if of further c linical concern for a fracture. 2. No acute displaced fracture or dislocation. ACT 112: Negative or not required by law. The above report was generated using voice recognition software. It may contain grammatical, syntax o r spelling errors. Electronically signed by: Chris Harrell M.D. 09/24/2024 2:47 PM
--- NOTE | 2024-09-24 14:49 | XRay Report ---
XR chest 1V portable CLINICAL HISTORY: pre-op COMPARISON STUDY: Chest radiograph July 18, 2024. FINDINGS: Right shoulder arthroplasty is incidentally noted. The patient is rotated. There is no pneu mothorax or pleural effusion. Calcified right hilar lymph node is benign. This is unchanged. Right hi lar prominence is likely technical. There is no consolidation or evidence for pulmonary edema. IMPRESSION: No acute cardiopulmonary findings. ACT 112: Negative or not required by law. Electronically signed by: Miles Davis M.D. 09/24/2024 2:46 PM
--- NOTE | 2024-09-24 14:51 | History & Physical Report ---
<Statement entered by Javy Herring, DO - 09/29/24 07:13> I have seen and examined the patient and have discussed the case with the provider above. I have reviewed the advanced practitioner's documentation, and I agree with, and take responsibility for that plan of care. Patient seen and examined multiple times in the day of admission. Patient reports her pain is controlled. Denied significant symptoms when she had rapid ventricular response and was hypotensive. Patient had acute blood loss anemia, converted to rapid A-fib and hypotensive due to blood loss associated with fracture. Patient significantly improved with volume resuscitation and transfusion of PRBCs. Physical exam: Patient alert and able to answer questions appropriately Somewhat pale in appearance CV: Patient initially normal sinus rhythm normal S1-S2, regular, converted to atrial fibrillation with rapid ventricular response Lungs: Clear to auscultation Patient informed her condition, family members at bedside updated to the plan. Communicated with clinical research assistant to coordinate possible transfer to the ICU should her pressures not respond to volume resuscitation. Discussed plan of care as outlined below with MARIELLE Date of Service September 24, 2024 Assessment & Plan (1) Intertrochanteric fracture of right hip: (2) Fall: (3) PAF (paroxysmal atrial fibrillation): (4) Atrial fibrillation with RVR: Plan: #Intertrochanteric fracture right femur Patient is 74 year old female with PMH paroxysmal atrial fibrillation anticoagulated on Eliquis, HTN, HLD, hypothyroidism, TIA, breast cancer presented to ER for unwitnessed fall and right hip pain. Patient unsure what happened but daughter found her on floor this morning Initial ER presentation afebrile, P: 72, R: 16, BP 152/78, 100% on room air No leukocytosis. Initial troponin negative. CK WNL Hip/pelvis x-ray: Acute comminuted displaced intertrochanteric fracture of right femur. Apparent asymmetric sclerosis and bowing of right femoral diaphysis Right knee x-ray: Equivocal mild articular depression of the lateral tibial plateau may be secondary to positioning as there is no associated joint effusion. Findings could be further evaluated with CT if of further clinical concern for a fracture. CT head: No acute intracranial findings, right posterior scalp contusion CT C-spine: No acute fracture In ER given morphine Bedrest Scheduled Tylenol; oxycodone, morphine prn pain Ice to area NPO [place] Ortho consult, Dr Luna aware CBC, BMP in am Initially ortho, Dr Luna was planning on taking pt to OR tomorrow morning. I have updated Dr Luna on pt's current condition and will need stabilized prior to surgical procedure. #Anemia #Recent suspected GI Bleed Initial Hgb: 8.2. Recent hospitalization 07/19/2024-07/25/2024 for acute blood loss anemia, upper GI bleed with initial Hgb: 5.3 on 07/19/24 and 8.2 on discharge on 07/25/24 S/P 3 units PRBC Had resumed Eliquis post discharge Denies melena or hematochezia Plan to continue protonix #Paroxysmal atrial fibrillation #Atrial fibrillation RVR Anticoagulated on Eliquis Upon initial presentation patient in normal sinus rhythm During course went in to A-fib RVR rates 140's-150's. SBPs in 70's. Patient denies palpations or SOB. 1L NSS ordered with repeat BP 74/53, Pulse in 150's Repeat H&H stat ordered Spoke to cardiology, Dr. Alvarez who recommended more fluid resuscitation and possible cautious IV Lopressor, however patient may require cardioversion if no improvement I have spoke to Dr Gold who will come evaluate pt in ER. Repeat BP is now 107/73, HR: 140. recommends amiodarone bolus. Can hold on cardioversion at this time Amiodarone bolus and drip started Repeat Hgb: 6.3 Transfuse 1unit PRBC now Echo cardiology consult Hold home Eliquis Hip CT ordered to further assess Will transfer to ICU for close monitoring overnight #HTN Per daughter home verapamil has been on hold past couple of weeks Will hold home BP agents secondary to above #HLD On home atorvastatin #Hypothyroidism Levothyroxine dose was increased to 150 mcg daily DVT Prophylaxis SCDs Admit ICU Full Code as per discussion with pt and pt daughter at bedside Follows with Dr Katz for routine care Pt was seen and care coordinated with Dr Herring. See addendum I spent a total of 88 minutes reviewing notes, outpatient records, labs, medication, coordinating, documenting and providing care for this patient excluding time spent in the performance of separately billed services. History of Present Illness Chief Complaint: Fall Primary Care Provider: Maged Katz MD Patient is 74 year old female with PMH paroxysmal atrial fibrillation anticoagulated on Eliquis, HTN, HLD, hypothyroidism, TIA, breast cancer presented to ER for fall and right hip pain. History obtained from patient, patient's daughter and inpatient and outpatient chart review. Patient states she does not remember falling or what happened. She states she knows she was on the ground and couldn't get up. Daughter states patient often does not remember things and reports forgetfulness at baseline and daughter states she feels she is at baseline mental status. Daughter states last saw patient at 11p last night and called her this morning and pt didn't answer. Daughter went to patient house and found patient lying on floor in kitchen still in her night gown and didn't appear that she had taken her morning pills yet and hadn't appeared to eaten. Patient was unable to ambulate. She denies noticing any urinary or bowel incontinence and states patient was awake and alert and oriented to her baseline. Patient reports has been having normal BMs and describes color as brown. She reports chronic balance issues. Uses walker at baseline. Was getting home PT however no longer getting it. Currently patient denies any complaint other than right hip pain. States right leg felt numb to daughter but currently patient describes right hip pain and right leg heaviness. States has chronic low back pain with radiation to right leg and feels like her current back pain is baseline and denies any worsening. Daughter states that her verapamil held the past 2 weeks. Patient denies current PAUL, CP, SOB, palpitations, N/V/D/C, abdominal pain, rhinorrhea, cough, dysuria, hematuria. Allergies Allergy/AdvReac Type Severity Reaction Status Date / Time Penicillins Allergy Intermediate Hives Verified 09/24/24 16:29 Sulfa (Sulfonamide AdvReac Severe SEVERE Verified 09/24/24 16:29 Antibiotics) NAUSEA Home Medications Medication Instructions Recorded Confirmed Type apixaban 5 mg tablet (Eliquis) 5 mg PO AMHS 12/13/23 09/24/24 History lorazepam 0.5 mg tablet (Ativan) 0.5 mg PO Q8 PRN Anxiety 12/13/23 09/24/24 History metformin 500 mg tablet 1,000 mg PO BIDM 12/13/23 09/24/24 History aspirin 81 mg tablet,delayed 81 mg PO QAM 02/01/24 09/24/24 History release atorvastatin 40 mg tablet 40 mg PO QAM 02/01/24 09/24/24 History metoprolol tartrate 25 mg tablet 12.5 mg PO AMHS 02/01/24 09/24/24 History cholecalciferol (vitamin D3) 125 125 mcg PO QAM #30 tabs 02/06/24 09/24/24 Rx mcg (5,000 unit) tablet acetaminophen 650 mg 650 mg PO TID ud 03/11/24 09/24/24 History tablet,extended release cyanocobalamin (vitamin B-12) 1,000 mcg PO QAM 03/11/24 09/24/24 History 1,000 mcg tablet,extended release (Vitamin B-12 ER) sertraline 25 mg tablet 25 mg PO QAM 03/11/24 09/24/24 History lidocaine 4 % topical patch 1 patch topical DAILY #15 ea 03/16/24 09/24/24 Rx calcitonin (salmon) 200 1 spray intranasal (ALT) QAM 07/19/24 09/24/24 History unit/actuation nasal spray nystatin 100,000 unit/gram topical 1 applic topical BID 07/19/24 09/24/24 History powder oxycodone 5 mg tablet 5 mg PO TID pain 07/19/24 09/24/24 History ferrous sulfate 325 mg (65 mg 325 mg PO BID #60 tabs 07/25/24 09/24/24 Rx iron) tablet,delayed release levothyroxine 150 mcg tablet 150 mcg PO DAILYBB #30 tabs 07/25/24 09/24/24 Rx (Synthroid) magnesium chloride 64 mg 64 mg PO BID #60 tabs 07/25/24 09/24/24 Rx (magnesium chloride) tablet,delayed release (Mag 64) pantoprazole 40 mg tablet,delayed 40 mg PO BID #60 tabs 07/25/24 09/24/24 Rx release verapamil 40 mg tablet 40 mg PO . ON HOLD 09/24/24 09/24/24 History Past Med/Surg History Problem List Hemorrhagic shock Atrial fibrillation with RVR PAF (paroxysmal atrial fibrillation) Intertrochanteric fracture of right hip Weakness (Acute) Symptomatic anemia (Acute) Hypomagnesemia (Acute) Lightheadedness GERD (gastroesophageal reflux disease) Vascular dementia Hypothyroidism (Acute) History of stroke Medical History Encounter for pre-operative examination Compression fracture of lumbosacral spine DAVIS (obstructive sleep apnea) Aortic stenosis CVA (cerebral vascular accident) Anemia Encephalopathy Persistent atrial fibrillation Diabetes mellitus Acute UTI History of breast cancer Surgical History Hx of cholecystectomy H/O section H/O gastric bypass Left ulnar fracture s/p surgical repair 01/02/24 at [facility] Family History Other Breast cancer Diabetes Hypertension Social History Smoking Status: Never smoker Hx Alcohol Use: No Hx Substance Use: No Preferred Language: Wallisian Communication Ability: Effective Physical Therapy Resident Required: No Beliefs That Will Affect Care: None Current Living Situation: Alone and Family Current Living Situation Comment: Lives alone with cat, daughter lives across the street Feels Safe at Home: Yes Assistive Devices: Walker Review of Systems Review of Systems: Unobtainable due to cognitive status Physical Exam Physical Exam: General: mild distress secondary to right hip pain, WDWN Head: normocephalic, atraumatic Eyes: PERRL, EOM's intact, conjunctiva non-injected, anicteric ENT: normal inspection external ears, nose, mucous membranes moist Neck: supple, trachea midline, non-tender Lungs: clear, no respiratory distress, no wheezing/rhonchi/rales CV: RRR, trace edema Abd: normal BS, soft, non-tender Ext: no cyanosis, no calf tenderness; RLE: +shortened and externally rotated. +t enderness to palpation entire right hip, sensation to light touch intact, no ROM attempted. Pt able to actively move bilateral upper extremities without tenderness and able to flex and extend LLE Neuro: Alert, oriented to person, knows is in hospital, does not know date, no focal deficits noted, normal affect Skin: warm, dry Results & Data Results & Data Vital Signs (Past 12 Hours) Vital Signs Temp Pulse Resp BP Pulse Ox O2 Del Method 09/24/24 13:55 74 09/24/24 13:24 36.4 C L 72 16 152/78 H 100 Room Air Laboratory Results Short CBC 09/24/24 09/24/24 Range/Units 13:25 17:56 WBC 10.28 (4.8-10.8) K/ul Hgb 8.2 L 6.3 L* (12.0-16.0) g/dl Hct 27.5 L 20.6 L* (37.0-47.0) % Plt Count 193 (130-400) K/uL BMP 09/24/24 13:25 Sodium 140 Potassium 3.7 Chloride 112 H Carbon Dioxide 20 L BUN 17 Creatinine 0.61 Glucose 207 H Calcium 8.5 L Cardiac Enzymes 09/24/24 Range/Units 13:25 Total Creatine Kinase 73 (26-192) U/L Liver Function 09/24/24 Range/Units 13:25 Total Bilirubin 0.4 (0.2-1.0) mg/dl AST 21 (13-39) U/L ALT 20 (7-52) U/L Alkaline Phosphatase 55 (34-104) U/L Albumin 3.3 L (3.4-5.0) gm/dl Diagnostic Findings Hip/Pelvis X-Ray 09/24/24 13:24 XR hip RT 2V w pelvis CLINICAL HISTORY: fall, rt hip pain, shortened/rotated COMPARISON: Pelvis and right hip radiographs February 01, 2024. FINDINGS: Sacroiliac joints and symphysis pubis are intact. There is an acute comminuted displaced intertrochanteric fracture of the right femur. No additional fractures are identified. There is apparent asymmetric sclerosis and bowing of visualized portions of the right femoral diaphysis. IMPRESSION: 1. Acute comminuted displaced intertrochanteric fracture of the right femur. 2. Apparent asymmetric sclerosis and bowing of the right femoral diaphysis. This may be technical although could be further assessed with dedicated right femur radiographs. ACT 112: Negative or not required by law. Electronically signed by: Miles Davis M.D. 09/24/2024 2:08 PM Chest X-Ray 09/24/24 14:23 XR chest 1V portable CLINICAL HISTORY: pre-op COMPARISON STUDY: Chest radiograph July 18, 2024. FINDINGS: Right shoulder arthroplasty is incidentally noted. The patient is rotated. There is no pneumothorax or pleural effusion. Calcified right hilar lymph node is benign. This is unchanged. Right hilar prominence is likely technical. There is no consolidation or evidence for pulmonary edema. IMPRESSION: No acute cardiopulmonary findings. ACT 112: Negative or not required by law. Electronically signed by: Miles Davis M.D. 09/24/2024 2:46 PM Knee X-Ray 09/24/24 14:23 XR knee RT 1 or 2V routine HISTORY: 74 years-old Female fall acute pain of the right knee status post fall COMPARISON: None TECHNIQUE: 2 views of the right knee FINDINGS: Arterial calcifications demineralized appearance of the bones. There is mild tricompartmental osteoarthritis. Mild circumferential soft tissue swelling. No large joint effusion. Questioned mild articular depression in the lateral tibial plateau. IMPRESSION: 1. Equivocal mild articular depression of the lateral tibial plateau may be secondary to positioning as there is no associated joint effusion. Findings could be further evaluated with CT if of further clinical concern for a fracture. 2. No acute displaced fracture or dislocation. ACT 112: Negative or not required by law. The above report was generated using voice recognition software. It may contain grammatical, syntax or spelling errors. Electronically signed by: Chris Harrell M.D. 09/24/2024 2:[address] 09/24/24 15:15 EXAM: CT Cervical Spine Without Intravenous Contrast INDICATION: Trauma. TECHNIQUE: Axial computed tomography images of the cervical spine without intravenous contrast. Sagittal and coronal reformatted images were created and reviewed. This CT exam was performed using one or more of the following dose reduction techniques: automated exposure control, adjustment of the mA and/or kV according to patient size, and/or use of iterative reconstruction technique. COMPARISON: 12/13/2023 FINDINGS: Limitations: None. Vertebrae: Stable mild diffuse facet hypertrophic change. No fracture or subluxation. Discs/spinal canal/neural foramina: Mild central disc bulge C3-C4 with minimal flattening of the thecal sac. There is mild right paracentral disc bulge C4-C5 with minimal thecal sac flattening. There is right paracentral disc protrusion C5-C6 without stenosis. Soft tissues: No significant abnormality noted. Vasculature: There is dense atherosclerotic calcification of the internal carotid arteries. Atherosclerotic calcification of the intracranial vertebral arteries noted. Lung apices: No significant abnormality noted. IMPRESSION: Mild degenerative changes. No cervical fracture. ACT 112: Negative or not required by law. Electronically signed by Demi Moreno 09-24-2024 4:[address] 09/24/24 15:15 CT OF THE HEAD WITHOUT CONTRAST CLINICAL HISTORY: Fall. COMPARISON STUDY: Head CT July 19, 2024. CT DOSE: 1061. mGy.cm TECHNIQUE: Helical axial images of the head were obtained without IV contrast. Automated exposure control was utilized for the study. A dose lowering technique was utilized adhering to the principles of ALARA. FINDINGS: No acute intracranial hemorrhage, midline shift or mass effect is present. The ventricular system is unremarkable. The basal cisterns are patent. No extra-axial collections are present. There are no findings to suggest acute dural sinus thrombosis or acute territorial infarct. A right posterior scalp contusion is present. There is no calvarial fracture. IMPRESSION: 1. No acute intracranial findings. 2. Right posterior scalp contusion. No calvarial fracture. ACT 112: Negative or not required by law. Electronically signed by: Miles Davis M.D. 09/24/2024 4:00 PM
[2024-09-24 14:53] LABS: Albumin Globulin Ratio 1.7 (0.9-2); BUN Creatinine Ratio 27.9 (10-20); Creatinine Clr Calc Pharmacy 76.1 ml/min; Total Protein 5.3 gm/dl (6.0-8.3)
[2024-09-24 15:13] LABS: INR 1.2 (0.9-1.1); Partial Thromboplastin Ratio 0.9; Partial Thromboplastin Time 23 Seconds (21-31); Prothrombin Time 12.5 Seconds (9.0-12.0)
--- NOTE | 2024-09-24 16:03 | CT Scan Report ---
CT OF THE HEAD WITHOUT CONTRAST CLINICAL HISTORY: Fall. COMPARISON STUDY: Head CT July 19, 2024. CT DOSE: 1061. mGy.cm TECHNIQUE: Helical axial images of the head were obtained without IV contrast. Automated exposure con trol was utilized for the study. A dose lowering technique was utilized adhering to the principles o f ALARA. FINDINGS: No acute intracranial hemorrhage, midline shift or mass effect is present. The ventricular system is unremarkable. The basal cisterns are patent. No extra-axial collections are present. There are no findings to suggest acute dural sinus thrombosis or acute territorial infarct. A right posteri or scalp contusion is present. There is no calvarial fracture. IMPRESSION: 1. No acute intracranial findings. 2. Right posterior scalp contusion. No calvarial fracture. ACT 112: Negative or not required by law. Electronically signed by: Miles Davis M.D. 09/24/2024 4:00 PM
--- NOTE | 2024-09-24 16:13 | CT Scan Report ---
EXAM: CT Cervical Spine Without Intravenous Contrast INDICATION: Trauma. TECHNIQUE: Axial computed tomography images of the cervical spine without intravenous contrast. Sagittal and coronal reformatted images were created and reviewed. This CT exam was performed using one or more of the following dose reduction techniques: automated exposure control, adjustment of the mA and/or kV according to patient size, and/or use of iterative reconstruction technique. COMPARISON: 12/13/2023 FINDINGS: Limitations: None. Vertebrae: Stable mild diffuse facet hypertrophic change. No fracture or subluxation. Discs/spinal canal/neural foramina: Mild central disc bulge C3-C4 with minimal flattening of the thecal sac. There is mild right paracentral disc bulge C4-C5 with minimal thecal sac flattening. There is right paracentral disc protrusion C5-C6 without stenosis. Soft tissues: No significant abnormality noted. Vasculature: There is dense atherosclerotic calcification of the internal carotid arteries. Atherosclerotic calcification of the intracranial vertebral arteries noted. Lung apices: No significant abnormality noted. IMPRESSION: Mild degenerative changes. No cervical fracture. ACT 112: Negative or not required by law. Electronically signed by Demi Moreno 09-24-2024 4:13 PM
--- NOTE | 2024-09-24 16:30 | Emergency Department Note ---
ED Visit Note I was consulted by the Advanced Practice Provider. I personally approved the management plan and take responsibility for the patient management. This includes the aspects of: -History/Physical -MDM -I independently interpreted the following studies:Studies and results .
--- NOTE | 2024-09-24 16:49 | Orthopedic Consultation ---
Date of Service September 24, 2024 Assessment & Plan (1) Intertrochanteric fracture of right hip: I discussed the diagnosis and treatment options with Myra and her daughter at bedside. I recommended intramedullary nail fixation of the right hip. We discussed the risk, benefits, and alternatives to procedure and she elected to proceed. Time was spent scribing the procedure and postoperative expectations. The decision was made for surgery. She will be n.p.o. past midnight tonight. We plan to do the surgery tomorrow morning. History of Present Illness Reason for Consultation: Right intertrochanteric hip fracture. Requesting Physician: . Myra is a pleasant 74-year-old female who is usually a community ambulator with a walker. She lives in a trailer across from her daughter. She had a fall yesterday. Her daughter found her on the floor this morning. She came to the emergency room where radiographs demonstrated a displaced right intertroc hanteric hip fracture. She was admitted to the medical service. Orthopedics was consulted to evaluate and treat.. Allergies Allergy/AdvReac Type Severity Reaction Status Date / Time Penicillins Allergy Intermediate Hives Verified 09/24/24 16:29 Sulfa (Sulfonamide AdvReac Severe SEVERE Verified 09/24/24 16:29 Antibiotics) NAUSEA Home Medications Medication Instructions Recorded Confirmed Type apixaban 5 mg tablet (Eliquis) 5 mg PO AMHS 12/13/23 09/24/24 History lorazepam 0.5 mg tablet (Ativan) 0.5 mg PO Q8 PRN Anxiety 12/13/23 09/24/24 History metformin 500 mg tablet 1,000 mg PO BIDM 12/13/23 09/24/24 History aspirin 81 mg tablet,delayed 81 mg PO QAM 02/01/24 09/24/24 History release atorvastatin 40 mg tablet 40 mg PO QAM 02/01/24 09/24/24 History metoprolol tartrate 25 mg tablet 12.5 mg PO AMHS 02/01/24 09/24/24 History cholecalciferol (vitamin D3) 125 125 mcg PO QAM #30 tabs 02/06/24 09/24/24 Rx mcg (5,000 unit) tablet acetaminophen 650 mg 650 mg PO TID ud 03/11/24 09/24/24 History tablet,extended release cyanocobalamin (vitamin B-12) 1,000 mcg PO QAM 03/11/24 09/24/24 History 1,000 mcg tablet,extended release (Vitamin B-12 ER) sertraline 25 mg tablet 25 mg PO QAM 03/11/24 09/24/24 History lidocaine 4 % topical patch 1 patch topical DAILY #15 ea 03/16/24 09/24/24 Rx calcitonin (salmon) 200 1 spray intranasal (ALT) QAM 07/19/24 09/24/24 History unit/actuation nasal spray nystatin 100,000 unit/gram topical 1 applic topical BID 07/19/24 09/24/24 History powder oxycodone 5 mg tablet 5 mg PO TID pain 07/19/24 09/24/24 History ferrous sulfate 325 mg (65 mg 325 mg PO BID #60 tabs 07/25/24 09/24/24 Rx iron) tablet,delayed release levothyroxine 150 mcg tablet 150 mcg PO DAILYBB #30 tabs 07/25/24 09/24/24 Rx (Synthroid) magnesium chloride 64 mg 64 mg PO BID #60 tabs 07/25/24 09/24/24 Rx (magnesium chloride) tablet,delayed release (Mag 64) pantoprazole 40 mg tablet,delayed 40 mg PO BID #60 tabs 07/25/24 09/24/24 Rx release verapamil 40 mg tablet 40 mg PO . ON HOLD 09/24/24 09/24/24 History Past Med/Surg History Problem List (Updated 09/24/24 @ 16:48 by Logan Luna DO) Intertrochanteric fracture of right hip Weakness (Acute) Symptomatic anemia (Acute) Hypomagnesemia (Acute) Lightheadedness GERD (gastroesophageal reflux disease) Vascular dementia Hypothyroidism (Acute) History of stroke Medical History Encounter for pre-operative examination Compression fracture of lumbosacral spine DAVIS (obstructive sleep apnea) Aortic stenosis CVA (cerebral vascular accident) Anemia Encephalopathy Persistent atrial fibrillation Diabetes mellitus Acute UTI History of breast cancer Surgical History Hx of cholecystectomy H/O section H/O gastric bypass Left ulnar fracture s/p surgical repair 01/02/24 at [facility] Family History Other Breast cancer Diabetes Hypertension Social History Smoking Status: Never smoker Hx Alcohol Use: No Hx Substance Use: No Preferred Language: Azeri Communication Ability: Effective 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 Physical Exam On physical exam of the right hip, she does have a large pannus. She has pain with logroll of the right hip. The right lower extremity is shortened and externally rotated.. Constitutional WD/WN, vitals as above Eyes PERRL, conjunctivae normal, anicteric sclerae ENMT external ear and nose normal, oropharynx normal Neck trachea midline, no thyromegaly Respiratory normal respiratory effort Cardiovascular RRR, no murmur, no edema Gastrointestinal (Abdomen) normal bowel sounds, soft, nontender, no hepatosplenomegaly Psychiatric A+Ox3, euthymic affect Results & Data Results & Data Laboratory Results . Diagnostic Findings X-rays of the right hip show a displaced right intertrochanteric hip fracture with some subtrochanteric extension PG Care Time/CCT Total # of Minutes Spent Total Time Spent with Patient: Total time spent is greater than 50% in coordination of care (as documented) at patient's floor/unit and/or counseling patient: Coding Level of Care Code 85438 IN/OBS CONSULT LVL 4,60M (57 - DECISION FOR SURGERY) Diagnoses Intertrochanteric fracture of right hip S72.141A
[2024-09-24 17:27] LABS: Troponin I High Sensitivity 4.8 pg/ml (0-14)
[2024-09-24] MEDS ORDERED: SODIUM CHLORIDE 0.9% 100 ML IV PRN ×2 (18:08→18:38)
[2024-09-24] MEDS ORDERED: SODIUM CHLORIDE 0.9% 50 ML IV PRN ×2 (18:08→18:38)
[2024-09-24 18:28] LABS: Hematocrit (blood only) 20.6 % (37.0-47.0); Hemoglobin 6.3 g/dl (12.0-16.0)
[2024-09-24] MEDS: AMIODARONE 150MG / 100ML D5W IV ONE (18:29)
[2024-09-24] MEDS: METOPROLOL TARTRATE 1 MG/ML VIAL IV STA (18:31)
[2024-09-24] MEDS: DIGOXIN 500 MCG in SYRINGE 8 ML IV STA (18:32)
[2024-09-24] MEDS: SODIUM CHLORIDE 0.9% 500 ML IV ONE ×2 (18:34)
[2024-09-24] MEDS: SODIUM CHLORIDE 0.9% 1,000 ML IV ONE (18:34)
[2024-09-24] MEDS: DIGOXIN 500 MCG/2 ML AMP IV ONE (18:35)
[2024-09-24] MEDS ORDERED: STAT IV Infusion **Titration per Protocol STA (18:36)
[2024-09-24] MEDS ORDERED: AMIODARONE IV BOLUS & DRIP IV STA (18:36)
[2024-09-24] MEDS ORDERED: 0.2 MICRON FILTER SET 1 EACH IV STA (18:36)
[2024-09-24] MEDS: AMIODARONE / D5W 150 MG/100 ML BAG IV STA (18:43)
[2024-09-24] MEDS: AMIODARONE / D5W 360 MG/200 ML BAG IV ONE (18:51)
[2024-09-24] MEDS ORDERED: STAT IV/IM STA (18:58)
--- NOTE | 2024-09-24 18:58 | Critical Care Consultation ---
Date of Consultation September 24, 2024 Assessment & Plan (1) Hemorrhagic shock: Patient with acute hemorrhage likely secondary to bleeding from right hip fracture. 2 units of packed RBCs ordered. Will order Kcentra given the patient's history of Eliquis use. Patient denies taking pills today, but is a poor historian and often forgetful. Will also order CT of the hip to evaluate for active bleeding. Appreciate orthopedic input. Plan for surgical intervention tomorrow per orthopedic consultation. Hold antihypertensives. (2) Atrial fibrillation with RVR: A-fib with RVR secondary to acute hemorrhage. 2 units of packed RBCs ordered as noted above. 150 mg amiodarone bolus given in the ER. Will consider continuation of amiodarone drip depending on response to blood products. Consider reinstitution of beta-blockade once shock state resolved. (3) Intertrochanteric fracture of right hip: See comments above. (4) Vascular dementia: Will likely need placement prior to discharge. (5) Fall: CT C-spine with no acute fracture. CT head with right posterior scalp contusion. No fracture or intracranial bleed. Plan Plan of care discussed with ER nursing, patient, patient's daughter and hospital service. CRITICAL CARE TIME I have personally spent 38 minutes of critical care time in the direct management of this patient. This is a life/limb threatening event. This includes time spent evaluating patient, direct bedside care, chart review, placing orders, interpretation of diagnostic studies, discussion with consultants, patient, and family members, as well as other required patient management activities. This time is exclusive of all separately billable procedures, and teaching time and separate from and in addition to any other critical care service time. History of Present Illness Reason for Consultation: Hypotension atrial fibrillation with rapid ventricular response History of Present Illness 74-year-old female who sustained a fall yesterday presenting to the ER for evaluation due to severe right hip pain. ICU is consulted due to atrial fibrillation with rapid ventricular response and associated hypotension. She was found to have a hemoglobin of 6.3 with presumptive bleeding into her right h ip. Patient's history notable for dementia, paroxysmal atrial fibrillation on Eliquis (although patient notes that she did not take any Eliquis today), breast cancer, TIA, hypertension and hyperlipidemia. She was receiving a liter of fluids when I arrived to the ER. She was in reverse Trendelenburg position. Patient poor historian. Collateral history obtained from patient's daughter. Allergies Allergy/AdvReac Type Severity Reaction Status Date / Time Penicillins Allergy Intermediate Hives Verified 09/24/24 16:29 Sulfa (Sulfonamide AdvReac Severe SEVERE Verified 09/24/24 16:29 Antibiotics) NAUSEA Home Medications Medication Instructions Recorded Confirmed Type apixaban 5 mg tablet (Eliquis) 5 mg PO AMHS 12/13/23 09/24/24 History lorazepam 0.5 mg tablet (Ativan) 0.5 mg PO Q8 PRN Anxiety 12/13/23 09/24/24 History metformin 500 mg tablet 1,000 mg PO BIDM 12/13/23 09/24/24 History aspirin 81 mg tablet,delayed 81 mg PO QAM 02/01/24 09/24/24 History release atorvastatin 40 mg tablet 40 mg PO QAM 02/01/24 09/24/24 History metoprolol tartrate 25 mg tablet 12.5 mg PO AMHS 02/01/24 09/24/24 History cholecalciferol (vitamin D3) 125 125 mcg PO QAM #30 tabs 02/06/24 09/24/24 Rx mcg (5,000 unit) tablet acetaminophen 650 mg 650 mg PO TID ud 03/11/24 09/24/24 History tablet,extended release cyanocobalamin (vitamin B-12) 1,000 mcg PO QAM 03/11/24 09/24/24 History 1,000 mcg tablet,extended release (Vitamin B-12 ER) sertraline 25 mg tablet 25 mg PO QAM 03/11/24 09/24/24 History lidocaine 4 % topical patch 1 patch topical DAILY #15 ea 03/16/24 09/24/24 Rx calcitonin (salmon) 200 1 spray intranasal (ALT) QAM 07/19/24 09/24/24 History unit/actuation nasal spray nystatin 100,000 unit/gram topical 1 applic topical BID 07/19/24 09/24/24 History powder oxycodone 5 mg tablet 5 mg PO TID pain 07/19/24 09/24/24 History ferrous sulfate 325 mg (65 mg 325 mg PO BID #60 tabs 07/25/24 09/24/24 Rx iron) tablet,delayed release levothyroxine 150 mcg tablet 150 mcg PO DAILYBB #30 tabs 07/25/24 09/24/24 Rx (Synthroid) magnesium chloride 64 mg 64 mg PO BID #60 tabs 07/25/24 09/24/24 Rx (magnesium chloride) tablet,delayed release (Mag 64) pantoprazole 40 mg tablet,delayed 40 mg PO BID #60 tabs 07/25/24 09/24/24 Rx release verapamil 40 mg tablet 40 mg PO . ON HOLD 09/24/24 09/24/24 History Patient History Medical History Encounter for pre-operative examination Compression fracture of lumbosacral spine DAVIS (obstructive sleep apnea) Aortic stenosis CVA (cerebral vascular accident) Anemia Encephalopathy Persistent atrial fibrillation Diabetes mellitus Acute UTI History of breast cancer Surgical History Hx of cholecystectomy H/O section H/O gastric bypass Left ulnar fracture s/p surgical repair 01/02/24 at [facility] Family History Other Breast cancer Diabetes Hypertension Social History Smoking Status: Never smoker Hx Alcohol Use: No Hx Substance Use: No Preferred Language: Mongolian Communication Ability: Effective 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 Patient is in moderate distress in reverse Trendelenburg. Pale. Eyes: Pupils are equal round and reactive to light. Conjunctivae are normal. Anicteric sclera. Ears nose, mouth and throat: No perioral cyanosis. Neck: Trachea is midline. Visual inspection is normal. Respiratory: Clear to auscultation bilaterally. No use of accessory muscles. No significant clubbing noted. Cardiovascular: Irregularly irregular. Tachycardic.. No murmurs. No edema. Gastrointestinal: Normal bowel sounds, soft, nontender and nondistended. No hepatosplenomegaly noted. Musculoskeletal: No cyanosis. Patient is able to move all extremities. Tenderness over right hip. Right leg is shortened and externally rotated. Skin: No rashes, warm dry and intact. Neurologic: No obvious focal neurological deficits seen. Psychiatric: Alert and oriented x3 with a euthymic affect. Results & Data Results & Data Vital Signs (Past 12 Hours) Vital Signs Temp Pulse Pulse Resp BP BP Pulse Ox 09/24/24 18:36 126 H 98/50 L 100 09/24/24 18:30 107/73 09/24/24 18:20 85/60 L 09/24/24 18:00 148 H 10 L 82/49 L 93 09/24/24 17:52 71/52 L 09/24/24 17:36 141 H 13 77/59 L 95 09/24/24 17:24 91/51 L 09/24/24 17:16 147 H 09/24/24 17:06 75 12 113/53 L 95 09/24/24 17:00 113/53 L 09/24/24 16:51 82 16 131/76 98 09/24/24 16:30 75 14 123/65 96 09/24/24 16:00 77 12 131/62 98 09/24/24 15:00 72 14 93 09/24/24 13:55 74 09/24/24 13:24 36.4 C L 72 16 152/78 H 100 O2 Del Method 09/24/24 18:36 Room Air 09/24/24 18:30 09/24/24 18:20 09/24/24 18:00 09/24/24 17:52 09/24/24 17:36 Room Air 09/24/24 17:24 09/24/24 17:16 09/24/24 17:06 Room Air 09/24/24 17:00 09/24/24 16:51 09/24/24 16:30 09/24/24 16:00 09/24/24 15:00 09/24/24 13:55 09/24/24 13:24 Room Air Coding Level of Care Code 01446 CRITICAL CARE 1ST 30-74M Diagnoses Hemorrhagic shock R57.8 Atrial fibrillation with RVR I48.91 Intertrochanteric fracture of right hip S72.141A Vascular dementia F01.50 Fall W19.XXXA
[2024-09-24] MEDS: OPTIRAY 320 100ml IV ONE (19:33)
[2024-09-24] MEDS: PROTHROMBIN COMP CONC- KCENTRA 2,000 UNITS in SYRINGE 0 ML IV ONE (19:46)
[2024-09-24 20:03] LABS: Fibrinogen 202 mg/dl (184-400); INR 1.2 (0.9-1.1); Partial Thromboplastin Time 26 Seconds (21-31); Prothrombin Time 12.7 Seconds (9.0-12.0)
[2024-09-24 20:05] LABS: ANTI-Xa, LMWH(Low Molecular Wt 0.47 IU/ML (< 0.10)
[2024-09-24] MEDS ORDERED: MAGNESIUM HYDROXIDE SUSP 30 ML UDC PO PRN (21:06)
[2024-09-24] MEDS ORDERED: ONDANSETRON INJ 2 MG/ML 2 ML VIAL IV PRN (21:06)
[2024-09-24] MEDS ORDERED: POLYETHYLENE (MIRALAX) 17 GM PACK PO PRN (21:06)
[2024-09-24] MEDS ORDERED: NALOXONE HCL 0.4 MG/1 ML VIAL/CARP IV PRN (21:06)
[2024-09-24] MEDS ORDERED: bisacodyL 10 MG SUPP PR PRN (21:06)
[2024-09-24] MEDS: DC ALL ANTICOAGULANTS STA (21:32)
[2024-09-24] MEDS: ACETAMINOPHEN 500 MG TAB PO SCH (21:45)
[2024-09-24] MEDS ORDERED: DEXTROSE 50% 50 ML SYRINGE IV PRN (21:56)
[2024-09-24] MEDS ORDERED: GLUCOSE 40% GEL 15 GM TUBE PO PRN (21:56)
[2024-09-24] MEDS ORDERED: GLUCAGON FOR INJ 1 MG VIAL SQ PRN (21:56)
[2024-09-24] MEDS ORDERED: GLUCOSE 10 TAB/TUBE PO PRN (21:56)
[2024-09-24] MEDS: ICU Protocol for HYPERglycemia SCH (22:02)
[2024-09-24] MEDS: PANTOprazole 40 MG/10 ML SYR IV SCH (22:06)
--- NOTE | 2024-09-24 22:19 | CT Scan Report ---
Exam(s): CT RIGHT HIP With Contrast IV Amt: 92 ML OPTIRAY 320 EXAM: CT Right Lower Extremity With Intravenous Contrast, Hip CLINICAL HISTORY: Reason for exam: eval for active bleeding. TECHNIQUE: Axial computed tomography images of the right hip with intravenous contrast. CTDI is 37.63 mGy and DLP is 725.38 mGy-cm. Automated exposure control was utilized for the study. A dose lowering technique was utilized adhering to the principles of ALARA. CONTRAST: Patient received 92 ML OPTIRAY 320 of IV contrast COMPARISON: X-rays dated 02/01/2024 FINDINGS: Bones/joints: There is a comminuted, displaced angulated right intertrochanteric fracture.. No dislocation. Soft tissues: There is soft tissue swelling and edema. There are atherosclerotic changes noted. No extravasation of contrast is noted IMPRESSION: There is soft tissue swelling and edema. No extravasation of contrast is noted to suggest active bleeding at the time of the scan. There is a comminuted, displaced angulated right intertrochanteric fracture.. Electronically signed by: Terrance Edmonds MD 09/24/24 22:17 PM
[2024-09-24] MEDS: INSULIN ASPART PER UNIT CHARGE SC SCH (23:29)
[2024-09-25] MEDS: AMIODARONE / D5W 360 MG/200 ML BAG IV SCH (00:02)
[2024-09-25 00:42] LABS: Hematocrit (blood only) 28.3 % (37.0-47.0); Hemoglobin 8.7 g/dl (12.0-16.0)
[2024-09-25] MEDS: oxyCODONE HCL IR 5 MG TAB (IMMEDIATE RELEASE) PO PRN (01:41)
--- NOTE | 2024-09-25 03:52 | CT Scan Report ---
EXAM: CT abd pelvis wo con CLINICAL HISTORY: r/o retroperitoneal bleeding TECHNIQUE: Non-contrast CT of the abdomen and pelvis was performed, with the following protocol: axial images, and reconstructed coronal and sagittal images. No intravenous contrast was administered. One of the following dose reduction techniques was utilized for this exam: Automated exposure control, adjustment of the mA and/or kV according to patient size, and use of iterative reconstruction. COMPARISON: Comparison is made with [previous imaging study dated,07/18/2024"] FINDINGS: Lung bases: Bilateral pleural effusion, more on the right side. Bilateral atelectaic bands. Abdomen: Liver: Normal in size, shape, and density. No focal lesions, cysts, or masses were identified. Gallbladder and Biliary System: Cholecystectomy The common bile duct is prominent measuring 13 cm in diameter. Pancreas: Pancreatic head, body, and tail are visualized and appear normal in size and density. No pancreatic masses or calcifications were noted. Spleen: Normal in size, shape, and density. No splenic lesions or masses were identified. Splenic small calcific granulomas. Kidneys and Adrenal Glands: Both kidneys are normal in size, shape, and position showing excreted contrast. Cortical thickness is within normal limits. No hydronephrosis. Adrenal glands are unremarkable. Appendix: No findings to suggest acute appendicitis Vascular atherosclerotic changes There are postsurgical changes consistent with gastric bypass. The excluded stomach is not well-distended. A small hiatal hernia is noted. Pelvis: Urinary Bladder: collapsed over a catheter. Uterus: Normal in size and contour. No masses or abnormal thickening. Ovaries: Not well visualized but no gross abnormalities noted. Vagina: Normal in contour and wall thickness. Cervix: No evidence of mass or abnormal thickening. Peritoneal and Retroperitoneal Structures: No free fluid or abnormal fluid collections were identified within the abdomen or pelvis. No lymphadenopathy was noted. Bowel: Diverticulosis in the distal rectosigmoid colon without definitive focal diverticulitis. Fecal loading of the colon and rectum. No evidence of bowel obstruction or wall thickening. Bones and Soft Tissues: Compression fractures were noted throughout the included thoracolumbar spine with sparing of only L1 and L5 levels. There is a fracture line noted involving the inferior endplate at T12 level with loss of height centrally, estimated at 70% loss of height centrally. Newly developed right femoral neck intertrochanteric committed displaced fracture. Newly developed diffuse anasarca. IMPRESSION: 1. No retroperitoneal collection or hematoma. 2. Newly developed right femoral neck intertrochanteric committed displaced fracture. 3. Newly developed diffuse anasarca. 4. Newly developed Bilateral pleural effusion, more on the right side. 5. Fecal loading of the colon and rectum. 6. No otherwise interval changes. Electronically signed by Leilani Fair 09-25-2024 03:51 AM
[2024-09-25 04:59] LABS: Hematocrit (blood only) 24.9 % (37.0-47.0); Mean Corpuscular Hgb Conc 32.1 g/dL (32.0-36.0); Mean Corpuscular Volume 93.3 fL (80.0-100.0); Mean Platelet Volume 11.4 fL (9.4-12.4); Platelet Count 143 K/uL (130-400); RDW Coefficient of Variation 16.5 % (11.5-14.5); RDW Standard Deviation 55.9 fL (36.4-46.3); Red Blood Count 2.67 M/uL (4.20-5.40); White Blood Count 10.54 K/ul (4.8-10.8)
[2024-09-25 05:22] LABS: BUN Creatinine Ratio 27.8 (10-20); Calcium 7.7 mg/dl (8.6-10.3); Creatinine Clr Calc Pharmacy 65.9 ml/min; Magnesium 1.2 mg/dl (1.7-2.4); Phosphorus 4.2 mg/dl (2.5-4.9); Potassium 4.6 mmol/L (3.5-5.1)
[2024-09-25] MEDS: MAGNESIUM SULFATE / D5W 1 GM/100 ML BAG IV SCH (06:20)
[2024-09-25] MEDS ORDERED: SODIUM CHLORIDE 0.9% 50 ML IV PRN ×2 (07:09→07:29)
[2024-09-25] MEDS ORDERED: SODIUM CHLORIDE 0.9% 100 ML IV PRN ×2 (07:09→07:29)
[2024-09-25] MEDS ORDERED: DEXAMETHASONE SOD INJ 4 MG/ML VIAL ONE (07:25)
[2024-09-25] MEDS ORDERED: ROCURONIUM BROMIDE 10 MG/ML 5 ML VIAL IV ONE ×2 (07:25→09:07)
[2024-09-25] MEDS ORDERED: PROPOFOL IV EMULSION 10 MG/ML 20 ML VIAL IV ONE (07:25)
[2024-09-25] MEDS ORDERED: fentaNYL citrate PF 100 MCG/2 ML VIAL ONE ×2 (07:25→09:45)
[2024-09-25] MEDS ORDERED: ONDANSETRON INJ 2 MG/ML 2 ML VIAL ONE (07:25)
[2024-09-25] MEDS ORDERED: SUGAMMADEX SODIUM 200 MG/2 ML VIAL IV ONE (07:26)
[2024-09-25] MEDS ORDERED: ONDANSETRON INJ 2 MG/ML 2 ML VIAL IV PRN (07:28)
[2024-09-25] MEDS ORDERED: fentaNYL citrate PF 100 MCG/2 ML VIAL IV PRN (07:28)
[2024-09-25] MEDS ORDERED: ATROPINE SULFATE 0.1 MG/ML 10ML SYR IV PRN (07:28)
[2024-09-25] MEDS ORDERED: HYDROmorphone INJ 1 MG/ML SYRINGE IV PRN (07:28)
[2024-09-25] MEDS ORDERED: ePHEDrine sulfate 50 MG/ML AMP IV PRN (07:28)
--- NOTE | 2024-09-25 07:46 | Anesthesiology Consultation ---
Date of Service September 25, 2024 Assessment & Plan ASA [id number] Proposed Anesthesia Anesthesia Type: General Risk / Benefits Reviewed With: PT / POA / Parent / Guardian, Accepts Plan and Informed Consent Obtained History Surgery Operation Date: 09/25/24 07:30 Proposed Procedures p Long Intramedullary Nail Hip Right - Logan Heike Luna, DO Height/Weight Height: 5 ft 3 in Weight: 75.9 kg Allergies Allergy/AdvReac Type Severity Reaction Status Date / Time Penicillins Allergy Intermediate Hives Verified 09/24/24 16:29 Sulfa (Sulfonamide AdvReac Severe SEVERE Verified 09/24/24 16:29 Antibiotics) NAUSEA Medications Home Medications Medication Instructions Recorded Confirmed Last Taken apixaban 5 mg tablet (Eliquis) 5 mg PO AMHS 12/13/23 09/24/24 07/18/24 lorazepam 0.5 mg tablet (Ativan) 0.5 mg PO Q8 PRN Anxiety 12/13/23 09/24/24 Unknown metformin 500 mg tablet 1,000 mg PO BIDM 12/13/23 09/24/24 07/18/24 aspirin 81 mg tablet,delayed 81 mg PO QAM 02/01/24 09/24/24 07/18/24 release atorvastatin 40 mg tablet 40 mg PO QAM 02/01/24 09/24/24 02/03/24 metoprolol tartrate 25 mg tablet 12.5 mg PO AMHS 02/01/24 09/24/24 07/18/24 cholecalciferol (vitamin D3) 125 125 mcg PO QAM #30 tabs 02/06/24 09/24/24 07/18/24 mcg (5,000 unit) tablet acetaminophen 650 mg 650 mg PO TID ud 03/11/24 09/24/24 07/18/24 tablet,extended release cyanocobalamin (vitamin B-12) 1,000 mcg PO QAM 03/11/24 09/24/24 07/18/24 1,000 mcg tablet,extended release (Vitamin B-12 ER) sertraline 25 mg tablet 25 mg PO QAM 03/11/24 09/24/24 07/18/24 lidocaine 4 % topical patch 1 patch topical DAILY #15 ea 03/16/24 09/24/24 07/18/24 calcitonin (salmon) 200 1 spray intranasal (ALT) QAM 07/19/24 09/24/24 07/18/24 unit/actuation nasal spray nystatin 100,000 unit/gram topical 1 applic topical BID 07/19/24 09/24/24 07/18/24 powder oxycodone 5 mg tablet 5 mg PO TID pain 07/19/24 09/24/24 Unknown ferrous sulfate 325 mg (65 mg 325 mg PO BID #60 tabs 07/25/24 09/24/24 Unknown iron) tablet,delayed release levothyroxine 150 mcg tablet 150 mcg PO DAILYBB #30 tabs 07/25/24 09/24/24 Unknown (Synthroid) magnesium chloride 64 mg 64 mg PO BID #60 tabs 07/25/24 09/24/24 Unknown (magnesium chloride) tablet,delayed release (Mag 64) pantoprazole 40 mg tablet,delayed 40 mg PO BID #60 tabs 07/25/24 09/24/24 Unknown release verapamil 40 mg tablet 40 mg PO . ON HOLD 09/24/24 09/24/24 Unknown Active Medications Generic Name Dose Route Start Last Admin Trade Name Prudencioq PRN Reason Stop Dose Admin Acetaminophen 1,000 mg 09/24/24 21:06 09/25/24 04:52 Acetaminophen 500 Mg Tab PO 10/24/24 21:05 1,000 mg Q8H BRENNEN Administration Amiodarone HCl/Dextrose 360 mg in 200 mls @ 16.667 mls/hr 09/25/24 00:45 09/25/24 00:02 Nexterone / D5w IV 10/25/24 00:44 0.5 mg/min .Q12H BRENNEN 16.7 mls/hr Administration 0.5 MG/MIN Pantoprazole Sodium 40 mg in 10 mls @ 5 mls/min 09/24/24 21:30 09/24/24 22:06 Protonix IV 10/24/24 21:29 5 mls/min BID BRENNEN Administration Magnesium Sulfate/Dextrose 1 gm in 100 mls @ 50 mls/hr 09/25/24 06:00 09/25/24 06:20 Magnesium Sulfate / D5w IV 09/25/24 13:59 50 mls/hr Q2H BRENNEN Administration Insulin Aspart 0 units 09/25/24 00:00 09/25/24 06:19 Insulin Aspart Per Unit Charge SC 10/25/24 00:00 3 units Q6 BRENNEN Administration Oxycodone HCl 5 mg 09/24/24 21:06 09/25/24 01:41 Oxycodone Hcl Ir 5 Mg Tab (Immediate Release) PO 10/08/24 21:05 5 mg Q6H PRN Administration Moderate Pain (Scale 4, 5, 6) Past Medical History Medical History Encounter for pre-operative examination Compression fracture of lumbosacral spine DAVIS (obstructive sleep apnea) Aortic stenosis CVA (cerebral vascular accident) Anemia Encephalopathy Persistent atrial fibrillation Diabetes mellitus Acute UTI History of breast cancer Exercise / Class Metabolic Activity II 4-5 Yardwork/Stairs/Walk up hill Past Family History Family History Other Breast cancer Diabetes Hypertension Past Surgical History Surgical History Hx of cholecystectomy H/O section H/O gastric bypass Left ulnar fracture s/p surgical repair 01/02/24 at [facility] Past Anesthesia History No Hx of Anesthesia Complications and No Family Hx of Anesthesia Complications History of PONV No Hx of PONV and No Hx of Motion Sickness Social History Smoking Status: Never smoker Hx Alcohol Use: Yes alcohol intake frequency: holidays/special occasions only Hx Substance Use: No substance use type: does not use Review of Systems denies fever/cough/ colds/ chest pain/ SOB/ DAVIS denies DAVIS Physical Exam Vital Signs Last Vital Signs Temp 36.6 C 09/25/24 05:00 Pulse 70 09/25/24 06:33 Resp 20 09/25/24 06:33 BP 112/54 L 09/25/24 06:00 Pulse Ox 99 09/25/24 06:33 O2 Del Method Room Air 09/25/24 05:00 O2 Flow Rate 2 09/24/24 20:00 ENMT Mouth: no TMJ abnormality and no dentition abnormality Thyromental Distance: > or= 3.5 Finger Breadths Mallampati Class: II Neck neck extension not limited Respiratory normal respiratory effort; no respiratory distress Auscultation: lungs clear to auscultation bilaterally Cardiovascular Rate/Rhythm: regular rate and regular rhythm Heart Sounds: + murmur Neurologic moves all extremities Psychiatric Orientation: alert and oriented x 3 Testing Laboratory Results 09/25/24 04:36 09/25/24 04:36 PT 12.7 Seconds (9.0-12.0) H 09/24/24 19:25 INR 1.2 (0.9-1.1) H 09/24/24 19:25 APTT 26 Seconds (21-31) 09/24/24 19:25 Blood Type O Positive 09/24/24 18:02 Antibody Screen NEGATIVE 09/24/24 18:02 09/25/24 09/24/24 09/24/24 04:57 23:20 23:19 POC Glucose 221 H 331 H* 318 H* 09/24/24 21:39 POC Glucose 224 H
[2024-09-25] MEDS ORDERED: BUPIVACAINE/EPINEPHRINE 0.25% 1:200,000 30 ML VIAL ONE (07:50)
[2024-09-25] MEDS ORDERED: CALCIUM CHLORIDE 10% 10 ML SYR IV ONE (08:11)
[2024-09-25] MEDS ORDERED: ceFAZolin 330 MG/ML 1 GM VIAL ONE (08:11)
[2024-09-25] MEDS: ceFAZolin 2000MG 2,000 MG/15 ML SYR IV SCH ×2 (08:12→15:52)
--- NOTE | 2024-09-25 09:00 | Electrocardiogram Report ---
Test Reason : Blood Pressure : */* mmHG Vent. Rate : 71 BPM Atrial Rate : 71 BPM P-R Int : 142 ms QRS Dur : 74 ms QT Int : 400 ms P-R-T Axes : 54 6 268 degrees QTcB Int : 434 ms Normal sinus rhythm Low voltage QRS Possible Old Anteroseptal infarct (cited on or before 18-Jul-2024) Diffuse Nonspecific T wave abnormality Abnormal ECG When compared with ECG of 18-Jul-2024 22:59, Premature ventricular complexes are no longer Present Confirmed by Maged Ahumada ([id number]) on 09/25/2024 9:00:45 AM Referred By: REFERRED SELF Confirmed By: Maged Ahumada
--- NOTE | 2024-09-25 09:06 | Electrocardiogram Report ---
Test Reason : Blood Pressure : */* mmHG Vent. Rate : 65 BPM Atrial Rate : 65 BPM P-R Int : 158 ms QRS Dur : 86 ms QT Int : 418 ms P-R-T Axes : 83 14 80 degrees QTcB Int : 434 ms Normal sinus rhythm Low voltage QRS Cannot rule out Anterior infarct (cited on or before 18-Jul-2024) When compared with ECG of 24-Sep-2024 17:16, Sinus rhythm has replaced Atrial fibrillation Vent. rate has decreased by [address] and T wave abnormality no longer present Confirmed by Maged Ahumada ([id number]) on 09/25/2024 9:05:31 AM Referred By: REFERRED SELF Confirmed By: Maged Ahumada
--- NOTE | 2024-09-25 09:11 | Hospitalist Progress Note ---
Date of Service September 25, 2024 Assessment & Plan (1) Intertrochanteric fracture of right hip: Plan: Patient will be taken care of by orthopedics today, the plan is for surgical intervention, follow-up with recommendation by orthopedics postsurgery. Optimize pain control. (2) Fall: Plan: The etiology of this is not quite known as this was not witnessed but does not appear to be syncopal. (3) PAF (paroxysmal atrial fibrillation): Plan: Continue with amiodarone per outsole caser, continue monitoring her recommendations, after surgery we might be able to restart home medications. Plan Will reevaluate after surgery, continue optimizing pain control, proceed with surgery. Monitor heart rate and transition back to home medications. Anticoagulation is on hold for now will resume once cleared by surgery. Admission and Anticipated Discharge Date Admission Date: September 24, 2024 Subjective Patient is a 74-year-old female with history of atrial fibrillation on anticoagulation with Eliquis, hypertension, hyperlipidemia, hypothyroidism, TIA and breast cancer who came to the hospital after a fall during which she sustained right hip fracture. Patient was evaluated by orthopedics and anesthesiology and will be shortly taken to surgery. She was admitted to ICU because of hemorrhagic shock for which patient was given 2 units of PRBC with hemoglobin improved to 8 from 6.3. Patient was seen and briefly reviewed, I did not get a chance to examine her because she was on her way to the operating room. Results & Data Results & Data Vital Signs (Past 12 Hours) Vital Signs Temp Pulse Pulse Resp BP BP Pulse Ox 09/25/24 06:33 70 20 99 09/25/24 06:06 60 97 09/25/24 06:00 112/54 L 09/25/24 05:48 64 96 09/25/24 05:39 61 94 09/25/24 05:06 65 20 98 09/25/24 05:00 140/73 09/25/24 05:00 140/73 09/25/24 05:00 09/25/24 05:00 36.6 C 09/25/24 04:54 64 98 09/25/24 04:33 61 98 09/25/24 04:03 61 14 98 09/25/24 04:00 116/50 L 09/25/24 04:00 116/50 L 09/25/24 03:51 62 17 97 09/25/24 03:39 59 L 13 95 09/25/24 03:09 61 15 98 09/25/24 03:00 114/51 L 09/25/24 02:51 60 95 09/25/24 02:36 65 15 98 09/25/24 02:06 141/60 H 09/25/24 02:06 67 14 100 09/25/24 02:00 36.8 C 09/25/24 01:30 63 16 94 09/25/24 01:30 114/53 L 09/25/24 01:09 76 16 96 09/25/24 01:06 09/25/24 01:00 117/66 09/25/24 00:48 61 96 09/25/24 00:30 63 99 09/25/24 00:15 129/58 L 09/25/24 00:15 129/58 L 09/25/24 00:15 129/58 L 09/25/24 00:01 118/75 09/25/24 00:01 118/75 09/25/24 00:00 74 09/25/24 00:00 70 20 100 09/24/24 23:52 36.7 C 64 15 125/57 L 98 09/24/24 23:45 125/57 L 09/24/24 23:42 69 98 09/24/24 23:30 137/75 09/24/24 23:27 71 22 97 09/24/24 23:00 107/47 L 09/24/24 23:00 107/47 L 09/24/24 23:00 107/47 L 09/24/24 23:00 107/47 L 09/24/24 23:00 62 95 09/24/24 23:00 36.7 C 09/24/24 22:55 36.7 C 63 20 118/52 L 95 09/24/24 22:48 63 95 09/24/24 22:45 118/52 L 09/24/24 22:30 121/72 09/24/24 22:30 121/72 09/24/24 22:30 121/72 09/24/24 22:30 121/72 09/24/24 22:25 36.7 C 80 23 121/72 98 09/24/24 22:18 80 09/24/24 22:15 78 23 09/24/24 22:15 147/55 H 09/24/24 22:15 147/55 H 09/24/24 22:15 147/55 H 09/24/24 22:10 36.7 C 74 13 147/55 H 99 09/24/24 22:09 74 13 99 09/24/24 22:00 142/79 H 09/24/24 22:00 142/79 H 09/24/24 22:00 36.7 C 09/24/24 21:47 37 C 83 22 135/84 99 09/24/24 21:45 135/84 09/24/24 21:45 135/84 09/24/24 21:42 81 18 99 09/24/24 21:30 140/85 09/24/24 21:24 84 12 96 09/24/24 21:18 160/78 H 09/24/24 21:15 75 16 98 09/24/24 21:10 36.7 C 79 16 160/78 H 98 Pulse Ox O2 Del Method O2 Del Method 09/25/24 06:33 09/25/24 06:06 09/25/24 06:00 09/25/24 05:48 09/25/24 05:39 09/25/24 05:06 09/25/24 05:00 09/25/24 05:00 09/25/24 05:00 97 Room Air 09/25/24 05:00 09/25/24 04:54 09/25/24 04:33 09/25/24 04:03 09/25/24 04:00 09/25/24 04:00 09/25/24 03:51 09/25/24 03:39 09/25/24 03:09 09/25/24 03:00 09/25/24 02:51 09/25/24 02:36 09/25/24 02:06 09/25/24 02:06 09/25/24 02:00 09/25/24 01:30 09/25/24 01:30 09/25/24 01:09 09/25/24 01:06 98 Room Air 09/25/24 01:00 09/25/24 00:48 09/25/24 00:30 09/25/24 00:15 09/25/24 00:15 09/25/24 00:15 09/25/24 00:01 09/25/24 00:01 09/25/24 00:00 09/25/24 00:00 09/24/24 23:52 09/24/24 23:45 09/24/24 23:42 09/24/24 23:30 09/24/24 23:27 09/24/24 23:00 09/24/24 23:00 09/24/24 23:00 09/24/24 23:00 09/24/24 23:00 09/24/24 23:00 09/24/24 22:55 09/24/24 22:48 09/24/24 22:45 09/24/24 22:30 09/24/24 22:30 09/24/24 22:30 09/24/24 22:30 09/24/24 22:25 09/24/24 22:18 09/24/24 22:15 09/24/24 22:15 09/24/24 22:15 09/24/24 22:15 09/24/24 22:10 09/24/24 22:09 09/24/24 22:00 09/24/24 22:00 09/24/24 22:00 09/24/24 21:47 09/24/24 21:45 09/24/24 21:45 09/24/24 21:42 09/24/24 21:30 09/24/24 21:24 09/24/24 21:18 09/24/24 21:15 09/24/24 21:10 Room Air Laboratory Results Laboratory Results - last 24 hr 09/24/24 09/24/24 09/24/24 13:25 17:56 18:02 WBC 10.28 RBC 2.73 L Hgb 8.2 L 6.3 L* Hct 27.5 L 20.6 L* MCV 100.7 H MCH 30.0 MCHC 29.8 L RDW Std Deviation 55.4 H RDW Coeff of Valentina 14.9 H Plt Count 193 MPV 11.8 Immature Gran % (Auto) 0.6 Neut % (Auto) 79.8 Lymph % (Auto) 11.7 Mobile % (Auto) 6.9 Eos % (Auto) 0.3 Baso % (Auto) 0.7 Neut # (Auto) 8.21 H Lymph # (Auto) 1.20 Mobile # (Auto) 0.71 H Eos # (Auto) 0.03 Baso # (Auto) 0.07 Immature Gran # (Auto) 0.06 PT 12.5 H INR 1.2 H APTT 23 PTT Ratio 0.9 Fibrinogen Heparin Anti-Xa, LM Wt Sodium 140 Potassium 3.7 Chloride 112 H Carbon Dioxide 20 L Anion Gap 8 BUN 17 Creatinine 0.61 Est Cr Clr Drug Dosing 76.1 eGFR 93.17 BUN/Creatinine Ratio 27.9 H Glucose 207 H POC Glucose Calcium 8.5 L Phosphorus Magnesium Total Bilirubin 0.4 AST 21 ALT 20 Alkaline Phosphatase 55 Total Creatine Kinase 73 Troponin I High Sens 4.8 Total Protein 5.3 L Albumin 3.3 L Globulin 2.0 L Albumin/Globulin Ratio 1.7 Nasal Screen MRSA (PCR) Blood Type O Positive Antibody Screen NEGATIVE Crossmatch See Detail 09/24/24 09/24/24 09/24/24 19:25 21:04 21:39 WBC RBC Hgb Hct MCV MCH MCHC RDW Std Deviation RDW Coeff of Valentina Plt Count MPV Immature Gran % (Auto) Neut % (Auto) Lymph % (Auto) Mobile % (Auto) Eos % (Auto) Baso % (Auto) Neut # (Auto) Lymph # (Auto) Mobile # (Auto) Eos # (Auto) Baso # (Auto) Immature Gran # (Auto) PT 12.7 H INR 1.2 H APTT 26 PTT Ratio 1.0 Fibrinogen 202 Heparin Anti-Xa, LM Wt 0.47 Sodium Potassium Chloride Carbon Dioxide Anion Gap BUN Creatinine Est Cr Clr Drug Dosing eGFR BUN/Creatinine Ratio Glucose POC Glucose 224 H Calcium Phosphorus Magnesium Total Bilirubin AST ALT Alkaline Phosphatase Total Creatine Kinase Troponin I High Sens Total Protein Albumin Globulin Albumin/Globulin Ratio Nasal Screen MRSA (PCR) Negative Blood Type Antibody Screen Crossmatch 09/24/24 09/24/24 09/25/24 23:19 23:20 00:25 WBC RBC Hgb 8.7 L Hct 28.3 L MCV MCH MCHC RDW Std Deviation RDW Coeff of Valentina Plt Count MPV Immature Gran % (Auto) Neut % (Auto) Lymph % (Auto) Mobile % (Auto) Eos % (Auto) Baso % (Auto) Neut # (Auto) Lymph # (Auto) Mobile # (Auto) Eos # (Auto) Baso # (Auto) Immature Gran # (Auto) PT INR APTT PTT Ratio Fibrinogen Heparin Anti-Xa, LM Wt Sodium Potassium Chloride Carbon Dioxide Anion Gap BUN Creatinine Est Cr Clr Drug Dosing eGFR BUN/Creatinine Ratio Glucose POC Glucose 318 H* 331 H* Calcium Phosphorus Magnesium Total Bilirubin AST ALT Alkaline Phosphatase Total Creatine Kinase Troponin I High Sens Total Protein Albumin Globulin Albumin/Globulin Ratio Nasal Screen MRSA (PCR) Blood Type Antibody Screen Crossmatch 09/25/24 09/25/24 04:36 04:57 WBC 10.54 RBC 2.67 L Hgb 8.0 L Hct 24.9 L MCV 93.3 D MCH 30.0 MCHC 32.1 RDW Std Deviation 55.9 H RDW Coeff of Valentina 16.5 H Plt Count 143 MPV 11.4 Immature Gran % (Auto) Neut % (Auto) Lymph % (Auto) Mobile % (Auto) Eos % (Auto) Baso % (Auto) Neut # (Auto) Lymph # (Auto) Mobile # (Auto) Eos # (Auto) Baso # (Auto) Immature Gran # (Auto) PT INR APTT PTT Ratio Fibrinogen Heparin Anti-Xa, LM Wt Sodium 135 L Potassium 4.6 D Chloride 109 H Carbon Dioxide 20 L Anion Gap 6 BUN 20 Creatinine 0.72 Est Cr Clr Drug Dosing 65.9 eGFR 87.14 BUN/Creatinine Ratio 27.8 H Glucose 236 H POC Glucose 221 H Calcium 7.7 L Phosphorus 4.2 Magnesium 1.2 L Total Bilirubin AST ALT Alkaline Phosphatase Total Creatine Kinase Troponin I High Sens Total Protein Albumin Globulin Albumin/Globulin Ratio Nasal Screen MRSA (PCR) Blood Type Antibody Screen Crossmatch Diagnostic Findings Hip/Pelvis X-Ray 09/24/24 13:24 XR hip RT 2V w pelvis CLINICAL HISTORY: fall, rt hip pain, shortened/rotated COMPARISON: Pelvis and right hip radiographs February 01, 2024. FINDINGS: Sacroiliac joints and symphysis pubis are intact. There is an acute comminuted displaced intertrochanteric fracture of the right femur. No additional fractures are identified. There is apparent asymmetric sclerosis and bowing of visualized portions of the right femoral diaphysis. IMPRESSION: 1. Acute comminuted displaced intertrochanteric fracture of the right femur. 2. Apparent asymmetric sclerosis and bowing of the right femoral diaphysis. This may be technical although could be further assessed with dedicated right femur radiographs. ACT 112: Negative or not required by law. Electronically signed by: Miles Davis M.D. 09/24/2024 2:08 PM Chest X-Ray 09/24/24 14:23 XR chest 1V portable CLINICAL HISTORY: pre-op COMPARISON STUDY: Chest radiograph July 18, 2024. FINDINGS: Right shoulder arthroplasty is incidentally noted. The patient is rotated. There is no pneumothorax or pleural effusion. Calcified right hilar lymph node is benign. This is unchanged. Right hilar prominence is likely technical. There is no consolidation or evidence for pulmonary edema. IMPRESSION: No acute cardiopulmonary findings. ACT 112: Negative or not required by law. Electronically signed by: Miles Davis M.D. 09/24/2024 2:46 PM Knee X-Ray 09/24/24 14:23 XR knee RT 1 or 2V routine HISTORY: 74 years-old Female fall acute pain of the right knee status post fall COMPARISON: None TECHNIQUE: 2 views of the right knee FINDINGS: Arterial calcifications demineralized appearance of the bones. There is mild tricompartmental osteoarthritis. Mild circumferential soft tissue swelling. No large joint effusion. Questioned mild articular depression in the lateral tibial plateau. IMPRESSION: 1. Equivocal mild articular depression of the lateral tibial plateau may be secondary to positioning as there is no associated joint effusion. Findings could be further evaluated with CT if of further clinical concern for a fracture. 2. No acute displaced fracture or dislocation. ACT 112: Negative or not required by law. The above report was generated using voice recognition software. It may contain grammatical, syntax or spelling errors. Electronically signed by: Chris Harrell M.D. 09/24/2024 2:[address] 09/24/24 15:15 EXAM: CT Cervical Spine Without Intravenous Contrast INDICATION: Trauma. TECHNIQUE: Axial computed tomography images of the cervical spine without intravenous contrast. Sagittal and coronal reformatted images were created and reviewed. This CT exam was performed using one or more of the following dose reduction techniques: automated exposure control, adjustment of the mA and/or kV according to patient size, and/or use of iterative reconstruction technique. COMPARISON: 12/13/2023 FINDINGS: Limitations: None. Vertebrae: Stable mild diffuse facet hypertrophic change. No fracture or subluxation. Discs/spinal canal/neural foramina: Mild central disc bulge C3-C4 with minimal flattening of the thecal sac. There is mild right paracentral disc bulge C4-C5 with minimal thecal sac flattening. There is right paracentral disc protrusion C5-C6 without stenosis. Soft tissues: No significant abnormality noted. Vasculature: There is dense atherosclerotic calcification of the internal carotid arteries. Atherosclerotic calcification of the intracranial vertebral arteries noted. Lung apices: No significant abnormality noted. IMPRESSION: Mild degenerative changes. No cervical fracture. ACT 112: Negative or not required by law. Electronically signed by Demi Moreno 09-24-2024 4:[address] 09/24/24 15:15 CT OF THE HEAD WITHOUT CONTRAST CLINICAL HISTORY: Fall. COMPARISON STUDY: Head CT July 19, 2024. CT DOSE: 1061. mGy.cm TECHNIQUE: Helical axial images of the head were obtained without IV contrast. Automated exposure control was utilized for the study. A dose lowering technique was utilized adhering to the principles of ALARA. FINDINGS: No acute intracranial hemorrhage, midline shift or mass effect is present. The ventricular system is unremarkable. The basal cisterns are patent. No extra-axial collections are present. There are no findings to suggest acute dural sinus thrombosis or acute territorial infarct. A right posterior scalp contusion is present. There is no calvarial fracture. IMPRESSION: 1. No acute intracranial findings. 2. Right posterior scalp contusion. No calvarial fracture. ACT 112: Negative or not required by law. Electronically signed by: Miles Davis M.D. 09/24/2024 4:[address] 09/24/24 18:57 Exam(s): CT RIGHT HIP With Contrast IV Amt: 92 ML OPTIRAY 320 EXAM: CT Right Lower Extremity With Intravenous Contrast, Hip CLINICAL HISTORY: Reason for exam: eval for active bleeding. TECHNIQUE: Axial computed tomography images of the right hip with intravenous contrast. CTDI is 37.63 mGy and DLP is 725.38 mGy-cm. Automated exposure control was utilized for the study. A dose lowering technique was utilized adhering to the principles of ALARA. CONTRAST: Patient received 92 ML OPTIRAY 320 of IV contrast COMPARISON: X-rays dated 02/01/2024 FINDINGS: Bones/joints: There is a comminuted, displaced angulated right intertrochanteric fracture.. No dislocation. Soft tissues: There is soft tissue swelling and edema. There are atherosclerotic changes noted. No extravasation of contrast is noted IMPRESSION: There is soft tissue swelling and edema. No extravasation of contrast is noted to suggest active bleeding at the time of the scan. There is a comminuted, displaced angulated right intertrochanteric fracture.. Electronically signed by: Terrance Edmonds MD 09/24/24 22:17 PM Abdomen/Pelvis CT 09/25/24 01:32 EXAM: CT abd pelvis wo con CLINICAL HISTORY: r/o retroperitoneal bleeding TECHNIQUE: Non-contrast CT of the abdomen and pelvis was performed, with the following protocol: axial images, and reconstructed coronal and sagittal images. No intravenous contrast was administered. One of the following dose reduction techniques was utilized for this exam: Automated exposure control, adjustment of the mA and/or kV according to patient size, and use of iterative reconstruction. COMPARISON: Comparison is made with [previous imaging study dated,07/18/2024"] FINDINGS: Lung bases: Bilateral pleural effusion, more on the right side. Bilateral atelectaic bands. Abdomen: Liver: Normal in size, shape, and density. No focal lesions, cysts, or masses were identified. Gallbladder and Biliary System: Cholecystectomy The common bile duct is prominent measuring 13 cm in diameter. Pancreas: Pancreatic head, body, and tail are visualized and appear normal in size and density. No pancreatic masses or calcifications were noted. Spleen: Normal in size, shape, and density. No splenic lesions or masses were identified. Splenic small calcific granulomas. Kidneys and Adrenal Glands: Both kidneys are normal in size, shape, and position showing excreted contrast. Cortical thickness is within normal limits. No hydronephrosis. Adrenal glands are unremarkable. Appendix: No findings to suggest acute appendicitis Vascular atherosclerotic changes There are postsurgical changes consistent with gastric bypass. The excluded stomach is not well-distended. A small hiatal hernia is noted. Pelvis: Urinary Bladder: collapsed over a catheter. Uterus: Normal in size and contour. No masses or abnormal thickening. Ovaries: Not well visualized but no gross abnormalities noted. Vagina: Normal in contour and wall thickness. Cervix: No evidence of mass or abnormal thickening. Peritoneal and Retroperitoneal Structures: No free fluid or abnormal fluid collections were identified within the abdomen or pelvis. No lymphadenopathy was noted. Bowel: Diverticulosis in the distal rectosigmoid colon without definitive focal diverticulitis. Fecal loading of the colon and rectum. No evidence of bowel obstruction or wall thickening. Bones and Soft Tissues: Compression fractures were noted throughout the included thoracolumbar spine with sparing of only L1 and L5 levels. There is a fracture line noted involving the inferior endplate at T12 level with loss of height centrally, estimated at 70% loss of height centrally. Newly developed right femoral neck intertrochanteric committed displaced fracture. Newly developed diffuse anasarca. IMPRESSION: 1. No retroperitoneal collection or hematoma. 2. Newly developed right femoral neck intertrochanteric committed displaced fracture. 3. Newly developed diffuse anasarca. 4. Newly developed Bilateral pleural effusion, more on the right side. 5. Fecal loading of the colon and rectum. 6. No otherwise interval changes. Electronically signed by Leilani Fair 09-25-2024 03:51 AM Medications Administered Current Inpatient Medications Acetaminophen (Acetaminophen 500 Mg Tab) 1,000 mg PO Q8H BRENNEN Stop: 10/24/24 21:05 Last Admin: 09/25/24 04:52 Dose: 1,000 mg Atropine Sulfate (Atropine Sulfate 0.1 Mg/Ml 10ml Syr) 0.5 mg IV Q1M PRN PRN Reason: PACU Use-HR<40 &/or Bradycardi Stop: 09/25/24 15:28 Bisacodyl (Bisacodyl 10 Mg Supp) 10 mg IN DAILY PRN PRN Reason: Constipation Stop: 10/24/24 21:05 Dextrose (Dextrose 50% 50 Ml Syringe) 25 - 50 ml IV UD PRN; Protocol PRN Reason: Hypoglycemia Protocol Stop: 10/24/24 21:55 Ephedrine Sulfate (Ephedrine Sulfate 50 Mg/Ml Amp) 5 mg IV Q5M PRN PRN Reason: PACU Use Only-SBP<90 mmHg Stop: 09/25/24 15:28 Fentanyl Citrate (Fentanyl Citrate Pf 100 Mcg/2 Ml Vial) 50 mcg IV Q5M PRN PRN Reason: PACU Use Only-Pain Stop: 09/25/24 15:28 Glucagon (Glucagon For Inj 1 Mg Vial) 1 mg SQ UD PRN; Protocol PRN Reason: Hypoglycemia Protocol Stop: 10/24/24 21:55 Glucose (Glucose 40% Gel 15 Gm Tube) 15 - 30 gm PO UD PRN; Protocol PRN Reason: Hypoglycemia Protocol Stop: 10/24/24 21:55 Glucose (Glucose 10 Tab/Tube) 4 - 8 tab PO UD PRN; Protocol PRN Reason: Hypoglycemia Protocol Stop: 10/24/24 21:55 Hydromorphone HCl (Hydromorphone Inj 1 Mg/Ml Syringe) 0.25 mg IV Q5M PRN PRN Reason: PACU Use Only-Pain Stop: 09/25/24 15:28 Amiodarone HCl/Dextrose (Nexterone / D5w) 360 mg in 200 mls @ 16.667 mls/hr IV .Q12H BRENNEN Stop: 10/25/24 00:44 Last Admin: 09/25/24 00:02 Dose: 0.5 mg/min, 16.7 mls/hr Cefazolin Sodium (Ancef 2000mg) 2,000 mg in 15 mls @ 3.75 mls/min IV PREOP BRENNEN; Protocol Stop: 09/26/24 05:59 Last Admin: 09/25/24 08:12 Dose: 3.75 mls/min Pantoprazole Sodium (Protonix) 40 mg in 10 mls @ 5 mls/min IV BID BRENNEN Stop: 10/24/24 21:29 Last Admin: 09/24/24 22:06 Dose: 5 mls/min Magnesium Sulfate/Dextrose (Magnesium Sulfate / D5w) 1 gm in 100 mls @ 50 mls/hr IV Q2H BRENNEN Stop: 09/25/24 13:59 Last Infusion: 09/25/24 07:54 Dose: Infused Sodium Chloride (Nss) 100 mls @ 15 mls/hr IV .Q6H40M PRN PRN Reason: For Transfusion Duration Stop: 09/25/24 15:09 Sodium Chloride (Nss) 50 mls @ 15 mls/hr IV .Q3H20M PRN PRN Reason: For Transfusion Duration Stop: 09/25/24 15:09 Sodium Chloride (Nss) 100 mls @ 15 mls/hr IV .Q6H40M PRN PRN Reason: For Transfusion Duration Stop: 09/25/24 15:29 Sodium Chloride (Nss) 50 mls @ 15 mls/hr IV .Q3H20M PRN PRN Reason: For Transfusion Duration Stop: 09/25/24 15:29 Insulin Aspart (Insulin Aspart Per Unit Charge) 0 units SC Q6 BRENNEN Stop: 10/25/24 00:00 Last Admin: 09/25/24 06:19 Dose: 3 units Magnesium Hydroxide (Magnesium Hydroxide Susp 30 Ml Udc) 30 ml PO Q12H PRN PRN Reason: Constipation Stop: 10/24/24 21:05 Miscellaneous (Carbohydrates For Hypoglycemia ) 15 - 30 gm PO UD PRN PRN Reason: Hypoglycemia Protocol Stop: 10/24/24 21:55 Morphine Sulfate (Morphine Sulfate 2 Mg/Ml Carp) 2 mg IV Q4H PRN PRN Reason: Severe Pain (Scale 7, 8, 9,10) Stop: 10/08/24 21:05 Naloxone HCl (Naloxone Hcl 0.4 Mg/1 Ml Vial/Carp) 0.1 mg IV UD PRN PRN Reason: Opiate Overdose Stop: 10/24/24 21:05 Ondansetron HCl (Ondansetron Inj 2 Mg/Ml 2 Ml Vial) 4 mg IV Q6H PRN PRN Reason: Nausea Stop: 10/24/24 21:05 Ondansetron HCl (Ondansetron Inj 2 Mg/Ml 2 Ml Vial) 4 mg IV ONCE PRN PRN Reason: PACU Use Only-Nausea/Vomiting Stop: 09/25/24 15:28 Oxycodone HCl (Oxycodone Hcl Ir 5 Mg Tab (Immediate Release)) 5 mg PO Q6H PRN PRN Reason: Moderate Pain (Scale 4, 5, 6) Stop: 10/08/24 21:05 Last Admin: 09/25/24 01:41 Dose: 5 mg Polyethylene Glycol (Polyethylene (Miralax) 17 Gm Pack) 17 gm PO DAILY PRN PRN Reason: Constipation Stop: 10/24/24 21:05 (1) Intertrochanteric fracture of right hip Encounter type: initial encounter Fracture type: closed Fracture alignment: displaced Qualified Code(s): S72.141A - Displaced intertrochanteric fracture of right femur, initial encounter for closed fracture (2) Fall Encounter type: initial encounter Qualified Code(s): W19.XXXA - Unspecified fall, initial encounter
[2024-09-25] MEDS: BUPIVACAINE/EPINEPHRINE 0.25% 1:200,000 30 ML VIAL INJ ONE (09:32)
--- NOTE | 2024-09-25 09:48 | Operative Report ---
PG Post Operative Report Pre & Post Diagnosis Operation Date: 09/25/24 07:30 Pre-Op Diagnosis: Intertrochanteric fracture of right hip Post-Op Diagnosis: Intertrochanteric fracture of right hip I identified the patient and participated in the time-out.: Yes Procedure Operation Date: 09/25/24 07:30 Actual Procedures p Long Intramedullary Nail Hip Right(Right) - Logan Luna DO Surgeon Logan Luna DO Roofer None Estimated Blood Loss 200 Findings Consistent with Post-Op Diagnosis Specimens None Description of Procedure On September 25, 2024 Myra was brought in from her hospital room to the preoperative holding area. The operative extremity was then fine signed. She was given a preoperative antibiotic. She was taken back the operating room and put under general anesthesia on the hospital bed. She was then transferred to a fracture table. The left hip was brought out to traction. Fluoroscopic images were used to help with reduction of the hip. I was able to get acceptable reduction with traction and rotation. The right hip was then prepped and draped sterile fashion. A timeout was done. The patient and the operative extremity was properly identified. A longitudinal incision was made just superior to the greater trochanter. Dissection was taken down through the fascia. A split was made in the IT band. The tip of the greater trochanter was palpated. A guidepin was then placed at the tip of the greater trochanter and advanced down the center of the femoral canal. Appropriate placement of the guidepin was checked on orthogonal fluoroscopic images. A 17 mm opening reamer was then used to open the femoral canal. A ball-tipped guidewire was then placed down to the knee. The Synthes TFN nail measured to be 360 mm. Sequential reaming up to a size 12.5 reamer was done. A size 11 mm x 360 mm Synthes TFN nail was then impacted into place. Appropriate placement was checked on fluoroscopy. A small incision was made in the lateral thigh and a cannula was advanced for the helical blade. A guidepin was then placed into the center center position of the femoral head. A 95 mm helical blade was then impacted into place. The helical blade was then statically locked. Final fluoroscopic images showed anatomic reduction of the fracture and good alignment of the hardware. 2 locking screws were placed distally using perfect hoh technique. The wounds were then irrigated. The deep fascia was closed with #1 Vicryl. Deep fat layer was closed with 2-0 Vicryl. Skin was closed with 2-0 Vicryl and michelle. A Prevena VAC dressing was placed proximally. Soft dressings were placed distally. She was then extubated and transferred back to a hospital bed. She was taken to the [facility] tan[facility] care unit in stable condition. She tolerated the procedure well. I attest to the content of the Intraoperative Record and any orders documented therein. Any exceptions are noted below.
--- NOTE | 2024-09-25 09:58 | Fluoroscopy Report ---
FL femur RT 2V CLINICAL HISTORY: R TROCHacute fracture of the right hip COMPARISON STUDY: Radiographs 09/24/2024 FLUOROSCOPY TIME: 138.5 seconds FLUOROSCOPY IMAGES: 4 EXPOSURE DOSE: 30.64 mGy FINDINGS: Status post placement of an intertrochanteric nail with medullary zuleyma fixating the acute pr oximal right femoral fracture. There is improved alignment. Expected postoperative soft tissue swelli ng with deep tissue air. IMPRESSION: Fluoroscopic assistance as above. ACT 112: Negative or not required by law. Electronically signed by: Chris Harrell M.D. 09/25/2024 9:57 AM
--- NOTE | 2024-09-25 10:38 | Cardiology Consultation ---
Date of Consultation September 25, 2024 Assessment & Plan (1) PAF (paroxysmal atrial fibrillation): (2) Atrial fibrillation with RVR: (3) Hemorrhagic shock: Plan 74-year-old female admitted following mechanical fall with subsequent hip fracture. Course complicated by hemorrhagic shock, blood loss anemia hypotension and paroxysmal atrial fibrillation. Patient converted to sinus rhythm with IV amiodarone and underwent surgical hip repair today without difficulty. Echocardiogram not changed from prior studies with mild to moderate aortic stenosis noted preserved LV systolic function. Suggesting possible of elevation in right heart pressures Recommendations: Will stop IV amiodarone begin oral amiodarone 200 mg twice per day. Hold metoprolol. Agree with supplementation of magnesium and potassium Follow closely for nocturnal hypoxia given chronic edema and borderline elevation pulmonary pressure History of Present Illness Reason for Consultation: Paroxysmal atrial fibrillation, atrial fibrillation with rapid ventricular response Requesting Physician: [facility] Attending Physician: Ever Toussaint MD History of Present Illness Patient is a 74-year-old female with complex underlying issues which include 1. Paroxysmal atrial fibrillation 2. Type 2 diabetes mellitus 3. Mild vascular dementia 4. Hospitalization July 2024 for blood loss anemia, encephalopathy 5. Recent difficulties with bilateral lower extremity edema/cellulitis 6. Mild to moderate calcific aortic stenosis Patient presents this admission following what is described as a mechanical fall with subsequent hip fracture. Patient with significant anemia and hypotension on initial presentation complicated by recurrence of atrial fibrillation with rapid ventricular response. Patient given IV amiodarone with subsequent conversion to sinus rhythm. Has responded to fluid and Red cell resuscitation. Underwent surgical hip repair this morning Patient examined now sitting upright in bed comfortable denies any pain or discomfort. Transient hypoxia at times but otherwise stable. Remains in sinus/sinus bradycardia with out recurrence of atrial fibrillation Allergies Allergy/AdvReac Type Severity Reaction Status Date / Time Penicillins Allergy Intermediate Hives Verified 09/24/24 16:29 Sulfa (Sulfonamide AdvReac Severe SEVERE Verified 09/24/24 16:29 Antibiotics) NAUSEA Home Medications Medication Instructions Recorded Confirmed Type apixaban 5 mg tablet (Eliquis) 5 mg PO AMHS 12/13/23 09/24/24 History lorazepam 0.5 mg tablet (Ativan) 0.5 mg PO Q8 PRN Anxiety 12/13/23 09/24/24 History metformin 500 mg tablet 1,000 mg PO BIDM 12/13/23 09/24/24 History aspirin 81 mg tablet,delayed 81 mg PO QAM 02/01/24 09/24/24 History release atorvastatin 40 mg tablet 40 mg PO QAM 02/01/24 09/24/24 History metoprolol tartrate 25 mg tablet 12.5 mg PO AMHS 02/01/24 09/24/24 History cholecalciferol (vitamin D3) 125 125 mcg PO QAM #30 tabs 02/06/24 09/24/24 Rx mcg (5,000 unit) tablet acetaminophen 650 mg 650 mg PO TID ud 03/11/24 09/24/24 History tablet,extended release cyanocobalamin (vitamin B-12) 1,000 mcg PO QAM 03/11/24 09/24/24 History 1,000 mcg tablet,extended release (Vitamin B-12 ER) sertraline 25 mg tablet 25 mg PO QAM 03/11/24 09/24/24 History lidocaine 4 % topical patch 1 patch topical DAILY #15 ea 03/16/24 09/24/24 Rx calcitonin (salmon) 200 1 spray intranasal (ALT) QAM 07/19/24 09/24/24 History unit/actuation nasal spray nystatin 100,000 unit/gram topical 1 applic topical BID 07/19/24 09/24/24 History powder oxycodone 5 mg tablet 5 mg PO TID pain 07/19/24 09/24/24 History ferrous sulfate 325 mg (65 mg 325 mg PO BID #60 tabs 07/25/24 09/24/24 Rx iron) tablet,delayed release levothyroxine 150 mcg tablet 150 mcg PO DAILYBB #30 tabs 07/25/24 09/24/24 Rx (Synthroid) magnesium chloride 64 mg 64 mg PO BID #60 tabs 07/25/24 09/24/24 Rx (magnesium chloride) tablet,delayed release (Mag 64) pantoprazole 40 mg tablet,delayed 40 mg PO BID #60 tabs 07/25/24 09/24/24 Rx release verapamil 40 mg tablet 40 mg PO . ON HOLD 09/24/24 09/24/24 History Patient History Medical History Encounter for pre-operative examination Compression fracture of lumbosacral spine DAVIS (obstructive sleep apnea) Aortic stenosis CVA (cerebral vascular accident) Anemia Encephalopathy Persistent atrial fibrillation Diabetes mellitus Acute UTI History of breast cancer Surgical History Hx of cholecystectomy H/O section H/O gastric bypass Left ulnar fracture s/p surgical repair 01/02/24 at [facility] Family History Other Breast cancer Diabetes Hypertension Social History Smoking Status: Never smoker Hx Alcohol Use: Yes Hx Substance Use: No Preferred Language: Guyanese Communication Ability: Effective Back Tender Cloth Printing Required: No Beliefs That Will Affect Care: None Current Living Situation: Alone Current Living Situation Comment: daughter lives across the street Feels Safe at Home: Yes Assistive Devices: Glasses and Walker Review of Systems Review of Systems: All systems reviewed & are unremarkable except as noted in HPI & below Physical Exam Constitutional: WD/WN, vitals as above no acute distress Eyes: PERRL, conjunctivae normal, anicteric sclerae ENMT: external ear and nose normal, oropharynx normal Neck: trachea midline, no thyromegaly Respiratory: normal respiratory effort, lungs clear to auscultation Cardiovascular: Rate/Rhythm: regular rate, regular rhythm and + bradycardic Heart Sounds: + murmur (Grade 2 over 6 systolic murmur) Vessels: no JVD Extremities: + edema (1+ bilateral pedal edema) Gastrointestinal (Abdomen): normal bowel sounds, soft, nontender, no hepatosplenomegaly Musculoskeletal: no cyanosis or clubbing, extremities motor strength 5/5 Results & Data Vital Signs (Past 12 Hours) Vital Signs Temp Pulse Resp BP Pulse Ox Pulse Ox O2 Del Method 09/25/24 07:09 58 L 09/25/24 06:33 70 20 99 09/25/24 06:06 60 97 09/25/24 06:00 112/54 L 09/25/24 05:48 64 96 09/25/24 05:39 61 94 09/25/24 05:06 65 20 98 09/25/24 05:00 140/73 09/25/24 05:00 140/73 09/25/24 05:00 97 Room Air 09/25/24 05:00 36.6 C 09/25/24 04:54 64 98 09/25/24 04:33 61 98 09/25/24 04:03 61 14 98 09/25/24 04:00 116/50 L 09/25/24 04:00 116/50 L 09/25/24 03:51 62 17 97 09/25/24 03:39 59 L 13 95 09/25/24 03:09 61 15 98 09/25/24 03:00 114/51 L 09/25/24 02:51 60 95 09/25/24 02:36 65 15 98 09/25/24 02:06 141/60 H 09/25/24 02:06 67 14 100 09/25/24 02:00 36.8 C 09/25/24 01:30 63 16 94 09/25/24 01:30 114/53 L 09/25/24 01:09 76 16 96 09/25/24 01:06 98 Room Air 09/25/24 01:00 117/66 09/25/24 00:48 61 96 09/25/24 00:30 63 99 09/25/24 00:15 129/58 L 09/25/24 00:15 129/58 L 09/25/24 00:15 129/58 L 09/25/24 00:01 118/75 09/25/24 00:01 118/75 09/25/24 00:00 74 09/25/24 00:00 70 20 100 09/24/24 23:52 36.7 C 64 15 125/57 L 98 09/24/24 23:45 125/57 L 09/24/24 23:42 69 98 09/24/24 23:30 137/75 09/24/24 23:27 71 22 97 09/24/24 23:00 107/47 L 09/24/24 23:00 107/47 L 09/24/24 23:00 107/47 L 09/24/24 23:00 107/47 L 09/24/24 23:00 62 95 09/24/24 23:00 36.7 C 09/24/24 22:55 36.7 C 63 20 118/52 L 95 09/24/24 22:48 63 95 09/24/24 22:45 118/52 L Laboratory Results Laboratory Results - last 24 hr 09/24/24 09/24/24 09/24/24 13:25 17:56 18:02 WBC 10.28 RBC 2.73 L Hgb 8.2 L 6.3 L* Hct 27.5 L 20.6 L* MCV 100.7 H MCH 30.0 MCHC 29.8 L RDW Std Deviation 55.4 H RDW Coeff of Valentina 14.9 H Plt Count 193 MPV 11.8 Immature Gran % (Auto) 0.6 Neut % (Auto) 79.8 Lymph % (Auto) 11.7 Saline % (Auto) 6.9 Eos % (Auto) 0.3 Baso % (Auto) 0.7 Neut # (Auto) 8.21 H Lymph # (Auto) 1.20 Saline # (Auto) 0.71 H Eos # (Auto) 0.03 Baso # (Auto) 0.07 Immature Gran # (Auto) 0.06 PT 12.5 H INR 1.2 H APTT 23 PTT Ratio 0.9 Fibrinogen Heparin Anti-Xa, LM Wt Sodium 140 Potassium 3.7 Chloride 112 H Carbon Dioxide 20 L Anion Gap 8 BUN 17 Creatinine 0.61 Est Cr Clr Drug Dosing 76.1 eGFR 93.17 BUN/Creatinine Ratio 27.9 H Glucose 207 H POC Glucose Calcium 8.5 L Phosphorus Magnesium Total Bilirubin 0.4 AST 21 ALT 20 Alkaline Phosphatase 55 Total Creatine Kinase 73 Troponin I High Sens 4.8 Total Protein 5.3 L Albumin 3.3 L Globulin 2.0 L Albumin/Globulin Ratio 1.7 Nasal Screen MRSA (PCR) Blood Type O Positive Antibody Screen NEGATIVE Crossmatch See Detail 09/24/24 09/24/24 09/24/24 19:25 21:04 21:39 WBC RBC Hgb Hct MCV MCH MCHC RDW Std Deviation RDW Coeff of Valentina Plt Count MPV Immature Gran % (Auto) Neut % (Auto) Lymph % (Auto) Saline % (Auto) Eos % (Auto) Baso % (Auto) Neut # (Auto) Lymph # (Auto) Saline # (Auto) Eos # (Auto) Baso # (Auto) Immature Gran # (Auto) PT 12.7 H INR 1.2 H APTT 26 PTT Ratio 1.0 Fibrinogen 202 Heparin Anti-Xa, LM Wt 0.47 Sodium Potassium Chloride Carbon Dioxide Anion Gap BUN Creatinine Est Cr Clr Drug Dosing eGFR BUN/Creatinine Ratio Glucose POC Glucose 224 H Calcium Phosphorus Magnesium Total Bilirubin AST ALT Alkaline Phosphatase Total Creatine Kinase Troponin I High Sens Total Protein Albumin Globulin Albumin/Globulin Ratio Nasal Screen MRSA (PCR) Negative Blood Type Antibody Screen Crossmatch 09/24/24 09/24/24 09/25/24 23:19 23:20 00:25 WBC RBC Hgb 8.7 L Hct 28.3 L MCV MCH MCHC RDW Std Deviation RDW Coeff of Valentina Plt Count MPV Immature Gran % (Auto) Neut % (Auto) Lymph % (Auto) Saline % (Auto) Eos % (Auto) Baso % (Auto) Neut # (Auto) Lymph # (Auto) Saline # (Auto) Eos # (Auto) Baso # (Auto) Immature Gran # (Auto) PT INR APTT PTT Ratio Fibrinogen Heparin Anti-Xa, LM Wt Sodium Potassium Chloride Carbon Dioxide Anion Gap BUN Creatinine Est Cr Clr Drug Dosing eGFR BUN/Creatinine Ratio Glucose POC Glucose 318 H* 331 H* Calcium Phosphorus Magnesium Total Bilirubin AST ALT Alkaline Phosphatase Total Creatine Kinase Troponin I High Sens Total Protein Albumin Globulin Albumin/Globulin Ratio Nasal Screen MRSA (PCR) Blood Type Antibody Screen Crossmatch 09/25/24 09/25/24 04:36 04:57 WBC 10.54 RBC 2.67 L Hgb 8.0 L Hct 24.9 L MCV 93.3 D MCH 30.0 MCHC 32.1 RDW Std Deviation 55.9 H RDW Coeff of Valentina 16.5 H Plt Count 143 MPV 11.4 Immature Gran % (Auto) Neut % (Auto) Lymph % (Auto) Saline % (Auto) Eos % (Auto) Baso % (Auto) Neut # (Auto) Lymph # (Auto) Saline # (Auto) Eos # (Auto) Baso # (Auto) Immature Gran # (Auto) PT INR APTT PTT Ratio Fibrinogen Heparin Anti-Xa, LM Wt Sodium 135 L Potassium 4.6 D Chloride 109 H Carbon Dioxide 20 L Anion Gap 6 BUN 20 Creatinine 0.72 Est Cr Clr Drug Dosing 65.9 eGFR 87.14 BUN/Creatinine Ratio 27.8 H Glucose 236 H POC Glucose 221 H Calcium 7.7 L Phosphorus 4.2 Magnesium 1.2 L Total Bilirubin AST ALT Alkaline Phosphatase Total Creatine Kinase Troponin I High Sens Total Protein Albumin Globulin Albumin/Globulin Ratio Nasal Screen MRSA (PCR) Blood Type Antibody Screen Crossmatch
[2024-09-25] MEDS ORDERED: VERAPAMIL HCL 40 MG TAB PO SCH (10:49)
--- NOTE | 2024-09-25 10:56 | Critical Care Progress Note ---
Date of Service September 25, 2024 Assessment & Plan (1) Hemorrhagic shock: Plan: Hemoglobin has stabilized. No clear bleeding noted from any particular site. Patient's status post femur fixation. CT hip without evidence of acute bleeding noted. (2) Atrial fibrillation with RVR: Plan: Patient converted to sinus rhythm with amiodarone and resuscitation with blood products. Appreciate cardiology input. Beta-blockade has been restarted aspirin has been restarted as well. Will hold on full dose anticoagulation given recent hemorrhagic shock. (3) Intertrochanteric fracture of right hip: Plan: See comments above. (4) Vascular dementia: Plan: Will likely need placement prior to discharge. (5) Fall: Plan: CT C-spine with no acute fracture. CT head with right posterior scalp contusio n. No fracture or intracranial bleed. Plan Patient stable for downgrade out of the ICU. Admission and Anticipated Discharge Date Admission Date: September 24, 2024 Subjective Patient seen and examined. She was comfortable and stable. She denies any significant chest pain shortness of breath, fevers or chills. Review of Systems Review of Systems: All systems reviewed & are unremarkable except as noted in HPI & below Physical Exam Physical Exam: Constitutional: Patient appears to be of their stated age. Patient is in moderate distress in reverse Trendelenburg. Pale. Eyes: Pupils are equal round and reactive to light. Conjunctivae are normal. A nicteric sclera. Ears nose, mouth and throat: No perioral cyanosis. Neck: Trachea is midline. Visual inspection is normal. Respiratory: Clear to auscultation bilaterally. No use of accessory muscles. No significant clubbing noted. Cardiovascular: Sinus rhythm. Normal rate. No murmurs. No edema. Gastrointestinal: Normal bowel sounds, soft, nontender and nondistended. No hepatosplenomegaly noted. Musculoskeletal: No cyanosis. Patient is able to move all extremities. Tenderness over right hip. Dressing in place. Skin: No rashes, warm dry and intact. Neurologic: No obvious focal neurological deficits seen. Psychiatric: Alert and oriented x3 with a euthymic affect. Results & Data Results & Data Vital Signs (Past 12 Hours) Vital Signs Temp Pulse Resp BP Pulse Ox Pulse Ox O2 Del Method 09/25/24 07:09 58 L 09/25/24 06:33 70 20 99 09/25/24 06:06 60 97 09/25/24 06:00 112/54 L 09/25/24 05:48 64 96 09/25/24 05:39 61 94 09/25/24 05:06 65 20 98 09/25/24 05:00 140/73 09/25/24 05:00 140/73 09/25/24 05:00 97 Room Air 09/25/24 05:00 36.6 C 09/25/24 04:54 64 98 09/25/24 04:33 61 98 09/25/24 04:03 61 14 98 09/25/24 04:00 116/50 L 09/25/24 04:00 116/50 L 09/25/24 03:51 62 17 97 09/25/24 03:39 59 L 13 95 09/25/24 03:09 61 15 98 09/25/24 03:00 114/51 L 09/25/24 02:51 60 95 09/25/24 02:36 65 15 98 09/25/24 02:06 141/60 H 09/25/24 02:06 67 14 100 09/25/24 02:00 36.8 C 09/25/24 01:30 63 16 94 09/25/24 01:30 114/53 L 09/25/24 01:09 76 16 96 09/25/24 01:06 98 Room Air 09/25/24 01:00 117/66 09/25/24 00:48 61 96 09/25/24 00:30 63 99 09/25/24 00:15 129/58 L 09/25/24 00:15 129/58 L 09/25/24 00:15 129/58 L 09/25/24 00:01 118/75 09/25/24 00:01 118/75 09/25/24 00:00 74 09/25/24 00:00 70 20 100 09/24/24 23:52 36.7 C 64 15 125/57 L 98 09/24/24 23:45 125/57 L 09/24/24 23:42 69 98 09/24/24 23:30 137/75 09/24/24 23:27 71 22 97 09/24/24 23:00 107/47 L 09/24/24 23:00 107/47 L 09/24/24 23:00 107/47 L 09/24/24 23:00 107/47 L 09/24/24 23:00 62 95 09/24/24 23:00 36.7 C 09/24/24 22:55 36.7 C 63 20 118/52 L 95 Coding Level of Care Code 24853 SUB INP/OBS CARE 2/35MIN Diagnoses Hemorrhagic shock R57.8 Atrial fibrillation with RVR I48.91 Closed displaced intertrochanteric fracture of right femur, initial encounter S72.141A Encounter type: initial encounter Fracture type: closed Fracture alignment: displaced Vascular dementia F01.50 Fall, initial encounter W19.XXXA Encounter type: initial encounter (3) Intertrochanteric fracture of right hip Encounter type: initial encounter Fracture type: closed Fracture alignment: displaced Qualified Code(s): S72.141A - Displaced intertrochanteric fracture of right femur, initial encounter for closed fracture (5) Fall Encounter type: initial encounter Qualified Code(s): W19.XXXA - Unspecified fall, initial encounter
--- NOTE | 2024-09-25 11:18 | XRay Report ---
XR hip RT min 2V HISTORY: 74 years-old Female Post-Operative implant position COMPARISON: Fluoroscopic images of the right at the same day TECHNIQUE: 2 views of the right hip FINDINGS: Status post placement of an intertrochanteric nail with medullary zuleyma fixating the acute intertrochan teric right femoral fracture. Satisfactory alignment. Lateral skin michelle with expected postoperativ e soft tissue swelling and deep tissue air. Arterial calcifications. IMPRESSION: Satisfactory alignment of the fixated acute intertrochanteric right femoral fracture. ACT 112: Negative or not required by law. The above report was generated using voice recognition software. It may contain grammatical, syntax o r spelling errors. Electronically signed by: Chris Harrell M.D. 09/25/2024 11:16 AM
[2024-09-25] MEDS: oxyCODONE HCL IR 5 MG TAB (IMMEDIATE RELEASE) PO SCH (13:29)
--- NOTE | 2024-09-25 13:58 | Anesthesiology Progress Note ---
Date of Service September 25, 2024 Anesthesia Post Procedure Vital Signs Vital Signs: Temp Pulse Pulse Resp BP BP Pulse Ox 09/25/24 12:40 62 09/25/24 12:36 58 L 93 09/25/24 12:30 109/45 L 09/25/24 12:21 55 L 12 91 09/25/24 12:03 61 12 95 09/25/24 12:00 113/46 L 09/25/24 11:33 55 L 12 90 09/25/24 11:30 111/47 L 09/25/24 11:12 59 L 16 91 09/25/24 11:09 57 L 94 09/25/24 10:51 59 L 10 L 95 09/25/24 10:45 107/48 L 09/25/24 10:33 57 L 11 L 89 L 09/25/24 10:30 122/48 L 09/25/24 10:30 122/48 L 09/25/24 10:15 121/57 L 09/25/24 10:06 59 L 11 L 94 09/25/24 10:00 130/54 L 09/25/24 10:00 130/54 L 09/25/24 10:00 130/54 L 09/25/24 09:57 36.3 C L 09/25/24 09:52 136/58 L 09/25/24 09:51 69 13 91 09/25/24 09:50 133/66 09/25/24 09:50 36.3 C L 09/25/24 07:43 115/59 L 09/25/24 07:43 115/59 L 09/25/24 07:43 115/59 L 09/25/24 07:42 65 16 99 09/25/24 07:36 68 12 09/25/24 07:27 62 09/25/24 07:18 61 16 09/25/24 07:09 58 L 09/25/24 07:00 114/54 L 09/25/24 07:00 114/54 L 09/25/24 07:00 60 09/25/24 06:57 60 09/25/24 06:51 62 15 09/25/24 06:33 70 20 99 09/25/24 06:06 60 97 09/25/24 06:00 112/54 L 09/25/24 05:48 64 96 09/25/24 05:39 61 94 09/25/24 05:06 65 20 98 09/25/24 05:00 140/73 09/25/24 05:00 140/73 09/25/24 05:00 09/25/24 05:00 36.6 C 09/25/24 04:54 64 98 09/25/24 04:33 61 98 09/25/24 04:03 61 14 98 09/25/24 04:00 116/50 L 09/25/24 04:00 116/50 L 09/25/24 03:51 62 17 97 09/25/24 03:39 59 L 13 95 09/25/24 03:09 61 15 98 09/25/24 03:00 114/51 L 09/25/24 02:51 60 95 09/25/24 02:36 65 15 98 09/25/24 02:06 141/60 H 09/25/24 02:06 67 14 100 09/25/24 02:00 36.8 C 09/25/24 01:30 63 16 94 09/25/24 01:30 114/53 L 09/25/24 01:09 76 16 96 09/25/24 01:06 09/25/24 01:00 117/66 09/25/24 00:48 61 96 09/25/24 00:30 63 99 09/25/24 00:15 129/58 L 09/25/24 00:15 129/58 L 09/25/24 00:15 129/58 L 09/25/24 00:01 118/75 09/25/24 00:01 118/75 09/25/24 00:00 74 09/25/24 00:00 70 20 100 09/24/24 23:52 36.7 C 64 15 125/57 L 98 09/24/24 23:45 125/57 L 09/24/24 23:42 69 98 09/24/24 23:30 137/75 09/24/24 23:27 71 22 97 09/24/24 23:00 107/47 L 09/24/24 23:00 107/47 L 09/24/24 23:00 107/47 L 09/24/24 23:00 107/47 L 09/24/24 23:00 62 95 09/24/24 23:00 36.7 C 09/24/24 22:55 36.7 C 63 20 118/52 L 95 09/24/24 22:48 63 95 09/24/24 22:45 118/52 L 09/24/24 22:30 121/72 09/24/24 22:30 121/72 09/24/24 22:30 121/72 09/24/24 22:30 121/72 09/24/24 22:25 36.7 C 80 23 121/72 98 09/24/24 22:18 80 09/24/24 22:15 78 23 09/24/24 22:15 147/55 H 09/24/24 22:15 147/55 H 09/24/24 22:15 147/55 H 09/24/24 22:10 36.7 C 74 13 147/55 H 99 09/24/24 22:09 74 13 99 09/24/24 22:00 142/79 H 09/24/24 22:00 142/79 H 09/24/24 22:00 36.7 C 09/24/24 21:47 37 C 83 22 135/84 99 09/24/24 21:45 135/84 09/24/24 21:45 135/84 09/24/24 21:42 81 18 99 09/24/24 21:30 140/85 09/24/24 21:24 84 12 96 09/24/24 21:18 160/78 H 09/24/24 21:15 75 16 98 09/24/24 21:10 36.7 C 79 16 160/78 H 98 09/24/24 21:06 09/24/24 21:03 76 15 98 09/24/24 21:03 167/72 H 09/24/24 21:00 36.7 C 09/24/24 20:30 79 18 138/63 100 09/24/24 20:15 131/68 09/24/24 20:00 134 H 12 134/68 100 09/24/24 20:00 36.8 C 81 12 134/68 100 09/24/24 19:50 36.8 C 85 15 126/64 100 09/24/24 19:42 159 H 15 124/85 100 09/24/24 19:35 36.8 C 159 H 14 109/68 100 09/24/24 19:20 135 H 12 109/74 99 09/24/24 19:16 36.8 C 134 H 12 85/67 L 100 09/24/24 19:15 144 H 12 85/67 L 100 09/24/24 19:00 105/57 L 09/24/24 18:45 102/69 09/24/24 18:36 126 H 98/50 L 100 09/24/24 18:30 107/73 09/24/24 18:20 85/60 L 09/24/24 18:00 148 H 10 L 82/49 L 93 09/24/24 17:52 71/52 L 09/24/24 17:36 141 H 13 77/59 L 95 09/24/24 17:24 91/51 L 09/24/24 17:16 147 H 09/24/24 17:06 75 12 113/53 L 95 09/24/24 17:00 113/53 L 09/24/24 16:51 82 16 131/76 98 09/24/24 16:30 75 14 123/65 96 09/24/24 16:00 77 12 131/62 98 09/24/24 15:00 72 14 93 Pulse Ox O2 Del Method O2 Del Method O2 Flow Rate 09/25/24 12:40 09/25/24 12:36 09/25/24 12:30 09/25/24 12:21 09/25/24 12:03 09/25/24 12:00 09/25/24 11:33 09/25/24 11:30 09/25/24 11:12 09/25/24 11:09 09/25/24 10:51 09/25/24 10:45 09/25/24 10:33 09/25/24 10:30 09/25/24 10:30 09/25/24 10:15 09/25/24 10:06 09/25/24 10:00 09/25/24 10:00 09/25/24 10:00 09/25/24 09:57 Room Air 09/25/24 09:52 09/25/24 09:51 09/25/24 09:50 09/25/24 09:50 Nasal Cannula 2 09/25/24 07:43 09/25/24 07:43 09/25/24 07:43 09/25/24 07:42 09/25/24 07:36 09/25/24 07:27 09/25/24 07:18 09/25/24 07:09 09/25/24 07:00 09/25/24 07:00 09/25/24 07:00 09/25/24 06:57 09/25/24 06:51 09/25/24 06:33 09/25/24 06:06 09/25/24 06:00 09/25/24 05:48 09/25/24 05:39 09/25/24 05:06 09/25/24 05:00 09/25/24 05:00 09/25/24 05:00 97 Room Air 09/25/24 05:00 09/25/24 04:54 09/25/24 04:33 09/25/24 04:03 09/25/24 04:00 09/25/24 04:00 09/25/24 03:51 09/25/24 03:39 09/25/24 03:09 09/25/24 03:00 09/25/24 02:51 09/25/24 02:36 09/25/24 02:06 09/25/24 02:06 09/25/24 02:00 09/25/24 01:30 09/25/24 01:30 09/25/24 01:09 09/25/24 01:06 98 Room Air 09/25/24 01:00 09/25/24 00:48 09/25/24 00:30 09/25/24 00:15 09/25/24 00:15 09/25/24 00:15 09/25/24 00:01 09/25/24 00:01 09/25/24 00:00 09/25/24 00:00 09/24/24 23:52 09/24/24 23:45 09/24/24 23:42 09/24/24 23:30 09/24/24 23:27 09/24/24 23:00 09/24/24 23:00 09/24/24 23:00 09/24/24 23:00 09/24/24 23:00 09/24/24 23:00 09/24/24 22:55 09/24/24 22:48 09/24/24 22:45 09/24/24 22:30 09/24/24 22:30 09/24/24 22:30 09/24/24 22:30 09/24/24 22:25 09/24/24 22:18 09/24/24 22:15 09/24/24 22:15 09/24/24 22:15 09/24/24 22:15 09/24/24 22:10 09/24/24 22:09 09/24/24 22:00 09/24/24 22:00 09/24/24 22:00 09/24/24 21:47 09/24/24 21:45 09/24/24 21:45 09/24/24 21:42 09/24/24 21:30 09/24/24 21:24 09/24/24 21:18 09/24/24 21:15 09/24/24 21:10 Room Air 09/24/24 21:06 99 Room Air 09/24/24 21:03 09/24/24 21:03 09/24/24 21:00 09/24/24 20:30 09/24/24 20:15 09/24/24 20:00 09/24/24 20:00 2 09/24/24 19:50 09/24/24 19:42 09/24/24 19:35 2 09/24/24 19:20 09/24/24 19:16 2 09/24/24 19:15 09/24/24 19:00 09/24/24 18:45 09/24/24 18:36 Room Air 09/24/24 18:30 09/24/24 18:20 09/24/24 18:00 09/24/24 17:52 09/24/24 17:36 Room Air 09/24/24 17:24 09/24/24 17:16 09/24/24 17:06 Room Air 09/24/24 17:00 09/24/24 16:51 09/24/24 16:30 09/24/24 16:00 09/24/24 15:00 Pain Intensity Right Hip: Pain Intensity: 7 Transfer of Care Handoff Completed per policy Notes Mental Status: alert / awake / arousable and participated in evaluation Patient Amnestic to Procedure: Yes Nausea / Vomiting: adequately controlled Pain: adequately controlled Airway Patency, RR, SpO2: stable & adequate BP & HR: stable & adequate Hydration State: stable & adequate Anesthetic Complications: no major complications apparent and Pt Satisfied with anesthetic care
[2024-09-25 15:35] LABS: Basophils # (auto) 0.02 K/uL (0.00-0.20); Basophils % (auto) 0.1 %; Hematocrit (blood only) 26.2 % (37.0-47.0); Hemoglobin 8.5 g/dl (12.0-16.0); Immature Granulocytes # (auto) 0.06 K/uL (0.01-0.20); Immature Granulocytes % (auto) 0.4 %; Lymphocytes # (auto) 0.72 K/uL (1.20-3.40); Lymphocytes % (auto) 5.1 %; Mean Corpuscular Hemoglobin 30.6 pg (25.0-34.0); Mean Corpuscular Hgb Conc 32.4 g/dL (32.0-36.0); Mean Corpuscular Volume 94.2 fL (80.0-100.0); Mean Platelet Volume 11.3 fL (9.4-12.4); Monocytes # (auto) 1.08 K/uL (0.11-0.59); Monocytes % (auto) 7.7 %; Neutrophils # (auto) 12.11 K/uL (1.40-6.50); Neutrophils % (auto) 86.7 %; Platelet Count 135 K/uL (130-400); RDW Coefficient of Variation 16.3 % (11.5-14.5); RDW Standard Deviation 56.5 fL (36.4-46.3); Red Blood Count 2.78 M/uL (4.20-5.40); White Blood Count 13.99 K/ul (4.8-10.8)
[2024-09-25 15:51] LABS: BUN Creatinine Ratio 26.7 (10-20); Calcium 7.8 mg/dl (8.6-10.3); Creatinine Clr Calc Pharmacy 63.2 ml/min; Potassium 4.3 mmol/L (3.5-5.1)
[2024-09-25] MEDS: AMIODARONE 200 MG TAB PO SCH (16:12)
[2024-09-25] MEDS ORDERED: AMIODARONE 200 MG TAB PO SCH (17:00)
[2024-09-25] MEDS: MoRPHine SULFATE 2 MG/ML CARP IV PRN (18:27)
[2024-09-25] MEDS ORDERED: METOPROLOL TARTRATE 25 MG TAB PO SCH (21:00)
[2024-09-25] MEDS ORDERED: Nursing to Pharmacy Communication SCH (21:15)
[2024-09-25] MEDS: INSULIN ASPART PER UNIT CHARGE SC SCH (21:19)
[2024-09-25] MEDS: FERROUS SULFATE 325 MG TAB PO SCH (21:24)
[2024-09-25] MEDS: MAGNESIUM CHLORIDE W/CALCIUM 64MG DELAYED REL TAB PO SCH (21:24)
[2024-09-25] MEDS: PANTOprazole 40 MG TAB PO SCH (21:25)
[2024-09-26] MEDS: oxyCODONE HCL IR 5 MG TAB (IMMEDIATE RELEASE) PO STA (00:29)
[2024-09-26] MEDS: LEVOTHYROXINE SODIUM 150 MCG TABLET PO SCH (05:40)
[2024-09-26 07:16] LABS: Hematocrit (blood only) 22.2 % (37.0-47.0); Hemoglobin 7.1 g/dl (12.0-16.0); Mean Corpuscular Hemoglobin 30.2 pg (25.0-34.0); Mean Corpuscular Volume 94.5 fL (80.0-100.0); Mean Platelet Volume 11.4 fL (9.4-12.4); Platelet Count 140 K/uL (130-400); RDW Coefficient of Variation 16.4 % (11.5-14.5); RDW Standard Deviation 56.1 fL (36.4-46.3); Red Blood Count 2.35 M/uL (4.20-5.40); White Blood Count 14.11 K/ul (4.8-10.8)
[2024-09-26 07:25] LABS: BUN Creatinine Ratio 24.1 (10-20); Calcium 7.8 mg/dl (8.6-10.3); Creatinine Clr Calc Pharmacy 44.9 ml/min; Magnesium 1.9 mg/dl (1.7-2.4); Phosphorus 5.3 mg/dl (2.5-4.9); Potassium 5.3 mmol/L (3.5-5.1)
[2024-09-26 07:42] LABS: Basophils # (auto) 0.04 K/uL (0.00-0.20); Basophils % (auto) 0.3 %; Echinocytes 1+; Eosinophils # (auto) 0.01 K/uL (0.00-0.50); Eosinophils % (auto) 0.1 %; Immature Granulocytes # (auto) 0.06 K/uL (0.01-0.20); Immature Granulocytes % (auto) 0.4 %; Lymphocytes # (auto) 1.37 K/uL (1.20-3.40); Lymphocytes % (auto) 9.7 %; Monocytes # (auto) 1.48 K/uL (0.11-0.59); Monocytes % (auto) 10.5 %; Neutrophils # (auto) 11.15 K/uL (1.40-6.50); Ovalocytes 1+
[2024-09-26] MEDS: CYANOCOBALAMIN (B-12) 500 MCG TABLET PO SCH (08:34)
[2024-09-26] MEDS: SERTRALINE HCL 50 MG TABLET PO SCH (08:34)
[2024-09-26] MEDS: LIDOCAINE 5% 1 PATCH TD SCH (08:34)
[2024-09-26] MEDS: ASPIRIN 81 MG ECTAB PO SCH (08:34)
[2024-09-26] MEDS: ATORVASTATIN 40 MG TAB PO SCH (08:34)
[2024-09-26] MEDS: CHOLECALCIFEROL 125 MCG (5,000 UNITS) TAB PO SCH (08:34)
[2024-09-26] MEDS ORDERED: SODIUM CHLORIDE 0.9% 100 ML IV PRN (09:35)
[2024-09-26] MEDS ORDERED: SODIUM CHLORIDE 0.9% 50 ML IV PRN (09:35)
--- NOTE | 2024-09-26 09:35 | Hospitalist Progress Note ---
Date of Service September 26, 2024 Assessment & Plan (1) Intertrochanteric fracture of right hip: Plan: Postoperative day 1, patient clinically doing well, pain is well-controlled, follow with postop recommendation by orthopedics. PT and OT will evaluate the patient tomorrow. (2) Fall: Plan: The etiology of this is not quite known as this was not witnessed but does not appear to be syncopal. PT and OT evaluation tomorrow. (3) PAF (paroxysmal atrial fibrillation): Plan: Continue with amiodarone, aspirin, heart rate is generally stable. May resume anticoagulation later. (4) Hypothyroidism (acquired): Plan: Continue with Synthroid 150 mcg daily. (5) Mixed hyperlipidemia: Plan: Continue with Lipitor 40 mg daily. Plan Will transfuse 1 unit of PRBC, monitor H&H daily, PT and OT evaluation tomorrow. Admission and Anticipated Discharge Date Admission Date: September 24, 2024 Subjective Patient seen and examined. Her pain is under well control, this is postoperative day 1, denies having any issue, blood work from today was reviewed which showed hemoglobin dropped to 7.1 from 8.5 yesterday. Will proceed with 1 unit of PRBC transfusion. Physical Exam Physical Exam: VITALS: Reviewed. WEIGHT/BMI reviewed. NECK: Supple, with no masses. CV: RRR, no m/r/g. LUNGS: CTAB, no w/r/c. ABD: Soft, NT/ND, NBS, no masses or organomegaly. EXT: Status post right hip surgery Results & Data Results & Data Vital Signs (Past 12 Hours) Vital Signs Temp Pulse Pulse Resp BP Pulse Ox O2 Del Method 09/26/24 07:04 36.8 C 83 17 115/73 94 Room Air 09/26/24 03:15 36.4 C L 79 19 109/69 93 Room Air 09/25/24 23:00 82 09/25/24 22:28 36.8 C 78 17 142/61 H 96 Room Air Laboratory Results Laboratory Results - last 24 hr 09/24/24 09/25/24 09/25/24 18:02 12:44 15:24 WBC 13.99 H RBC 2.78 L Hgb 8.5 L Hct 26.2 L MCV 94.2 MCH 30.6 MCHC 32.4 RDW Std Deviation 56.5 H RDW Coeff of Valentina 16.3 H Plt Count 135 MPV 11.3 Immature Gran % (Auto) 0.4 Neut % (Auto) 86.7 Lymph % (Auto) 5.1 [place] % (Auto) 7.7 Eos % (Auto) 0.0 Baso % (Auto) 0.1 Neut # (Auto) 12.11 H Lymph # (Auto) 0.72 L [place] # (Auto) 1.08 H Eos # (Auto) 0.00 Baso # (Auto) 0.02 Immature Gran # (Auto) 0.06 Ovalocytes Echinocytes Sodium 135 L Potassium 4.3 Chloride 109 H Carbon Dioxide 20 L Anion Gap 6 BUN 20 Creatinine 0.75 Est Cr Clr Drug Dosing 63.2 eGFR 82.97 BUN/Creatinine Ratio 26.7 H Glucose 220 H POC Glucose 185 H Calcium 7.8 L Phosphorus Magnesium 2.0 25-OH Vitamin D Total Blood Type O Positive Antibody Screen NEGATIVE Crossmatch See Detail 09/25/24 09/26/24 09/26/24 16:16 06:52 07:06 WBC 14.11 H RBC 2.35 L Hgb 7.1 L Hct 22.2 L MCV 94.5 MCH 30.2 MCHC 32.0 RDW Std Deviation 56.1 H RDW Coeff of Valentina 16.4 H Plt Count 140 MPV 11.4 Immature Gran % (Auto) 0.4 Neut % (Auto) 79.0 Lymph % (Auto) 9.7 [place] % (Auto) 10.5 Eos % (Auto) 0.1 Baso % (Auto) 0.3 Neut # (Auto) 11.15 H Lymph # (Auto) 1.37 [place] # (Auto) 1.48 H Eos # (Auto) 0.01 Baso # (Auto) 0.04 Immature Gran # (Auto) 0.06 Ovalocytes 1+ Echinocytes 1+ Sodium 133 L Potassium 5.3 H D Chloride 106 Carbon Dioxide 19 L Anion Gap 8 BUN 26 H Creatinine 1.08 D Est Cr Clr Drug Dosing 44.9 eGFR 53.57 BUN/Creatinine Ratio 24.1 H Glucose 229 H POC Glucose 173 H 225 H Calcium 7.8 L Phosphorus 5.3 H Magnesium 1.9 25-OH Vitamin D Total 48.3 Blood Type Antibody Screen Crossmatch 09/26/24 09:09 WBC RBC Hgb Hct MCV MCH MCHC RDW Std Deviation RDW Coeff of Valentina Plt Count MPV Immature Gran % (Auto) Neut % (Auto) Lymph % (Auto) [place] % (Auto) Eos % (Auto) Baso % (Auto) Neut # (Auto) Lymph # (Auto) [place] # (Auto) Eos # (Auto) Baso # (Auto) Immature Gran # (Auto) Ovalocytes Echinocytes Sodium Potassium Chloride Carbon Dioxide Anion Gap BUN Creatinine Est Cr Clr Drug Dosing eGFR BUN/Creatinine Ratio Glucose POC Glucose 369 H* Calcium Phosphorus Magnesium 25-OH Vitamin D Total Blood Type Antibody Screen Crossmatch Diagnostic Findings Femur X-Ray 09/25/24 06:48 FL femur RT 2V CLINICAL HISTORY: R TROCHacute fracture of the right hip COMPARISON STUDY: Radiographs 09/24/2024 FLUOROSCOPY TIME: 138.5 seconds FLUOROSCOPY IMAGES: 4 EXPOSURE DOSE: 30.64 mGy FINDINGS: Status post placement of an intertrochanteric nail with medullary zuleyma fixating the acute proximal right femoral fracture. There is improved alignment. Expected postoperative soft tissue swelling with deep tissue air. IMPRESSION: Fluoroscopic assistance as above. ACT 112: Negative or not required by law. Electronically signed by: Chris Harrell M.D. 09/25/2024 9:57 AM Hip X-Ray 09/25/24 10:49 XR hip RT min 2V HISTORY: 74 years-old Female Post-Operative implant position COMPARISON: Fluoroscopic images of the right at the same day TECHNIQUE: 2 views of the right hip FINDINGS: Status post placement of an intertrochanteric nail with medullary zuleyma fixating the acute intertrochanteric right femoral fracture. Satisfactory alignment. Lateral skin michelle with expected postoperative soft tissue swelling and deep tissue air. Arterial calcifications. IMPRESSION: Satisfactory alignment of the fixated acute intertrochanteric right femoral fracture. ACT 112: Negative or not required by law. The above report was generated using voice recognition software. It may contain grammatical, syntax or spelling errors. Electronically signed by: Chris Harrell M.D. 09/25/2024 11:16 AM Medications Administered Current Inpatient Medications Acetaminophen (Acetaminophen 500 Mg Tab) 1,000 mg PO Q8H [facility] Stop: 10/24/24 21:05 Last Admin: 09/26/24 05:40 Dose: 1,000 mg Amiodarone HCl (Amiodarone 200 Mg Tab) 200 mg PO BIDM [facility] Stop: 10/25/24 16:59 Last Admin: 09/25/24 16:12 Dose: 200 mg Aspirin (Aspirin 81 Mg Ectab) 81 mg PO QAM [facility] Stop: 10/26/24 08:59 Last Admin: 09/26/24 08:34 Dose: 81 mg Atorvastatin Calcium (Atorvastatin 40 Mg Tab) 40 mg PO QAM [facility] Stop: 10/26/24 08:59 Last Admin: 09/26/24 08:34 Dose: 40 mg Bisacodyl (Bisacodyl 10 Mg Supp) 10 mg GA DAILY PRN PRN Reason: Constipation Stop: 10/24/24 21:05 Cyanocobalamin (Cyanocobalamin (B-12) 500 Mcg Tablet) [facility] [place]: 10/26/24 08:59 Last Admin: 09/26/24 08:34 Dose: 1,000 mcg Dextrose (Dextrose 50% 50 Ml Syringe) 25 - 50 ml IV UD PRN; Protocol PRN Reason: Hypoglycemia Protocol Stop: 10/24/24 21:55 Ferrous Sulfate (Ferrous Sulfate 325 Mg Tab) 325 mg PO BID [facility] Stop: 10/25/24 20:59 Last Admin: 09/26/24 08:34 Dose: 325 mg Glucagon (Glucagon For Inj 1 Mg Vial) 1 mg SQ UD PRN; Protocol PRN Reason: Hypoglycemia Protocol Stop: 10/24/24 21:55 Glucose (Glucose 40% Gel 15 Gm Tube) 15 - 30 gm PO UD PRN; Protocol PRN Reason: Hypoglycemia Protocol Stop: 10/24/24 21:55 Glucose (Glucose 10 Tab/Tube) 4 - 8 tab PO UD PRN; Protocol PRN Reason: Hypoglycemia Protocol Stop: 10/24/24 21:55 Insulin Aspart (Insulin Aspart Per Unit Charge) 0 units SC ACHS [facility] Stop: 10/25/24 00:00 Last Admin: 09/26/24 08:31 Dose: 6 units Levothyroxine Sodium (Levothyroxine Sodium 150 Mcg Tablet) 150 mcg PO DAILYBB [facility] Stop: 10/26/24 06:29 Last Admin: 09/26/24 05:40 Dose: 150 mcg Lidocaine (Lidocaine 5% 1 Patch) 1 patch TD DAILY [facility] Stop: 10/26/24 08:59 Last Admin: 09/26/24 08:34 Dose: 1 patch Lorazepam (Lorazepam 0.5 Mg Tab) 0.5 mg PO Q8 PRN PRN Reason: Anxiety Stop: 10/25/24 10:48 Magnesium Chloride (Magnesium Chloride W/Calcium 64mg Delayed Rel Tab) 64 mg PO BID [facility] Stop: 10/25/24 20:59 Last Admin: 09/26/24 08:34 Dose: 64 mg Magnesium Hydroxide (Magnesium Hydroxide Susp 30 Ml Udc) 30 ml PO Q12H PRN PRN Reason: Constipation Stop: 10/24/24 21:05 Metformin HCl (Metformin Hcl 500 Mg Tab) 1,000 mg PO BIDM [facility] Stop: 10/27/24 07:59 Miscellaneous (Carbohydrates For Hypoglycemia ) 15 - 30 gm PO UD PRN PRN Reason: Hypoglycemia Protocol Stop: 10/24/24 21:55 Morphine Sulfate (Morphine Sulfate 2 Mg/Ml Carp) 2 mg IV Q4H PRN PRN Reason: Severe Pain (Scale 7, 8, 9,10) Stop: 10/08/24 21:05 Last Admin: 09/26/24 05:54 Dose: 2 mg Naloxone HCl (Naloxone Hcl 0.4 Mg/1 Ml Vial/Carp) 0.1 mg IV UD PRN PRN Reason: Opiate Overdose Stop: 10/24/24 21:05 Ondansetron HCl (Ondansetron Inj 2 Mg/Ml 2 Ml Vial) 4 mg IV Q6H PRN PRN Reason: Nausea Stop: 10/24/24 21:05 Oxycodone HCl (Oxycodone Hcl Ir 5 Mg Tab (Immediate Release)) 5 mg PO Q6H PRN PRN Reason: Moderate Pain (Scale 4, 5, 6) Stop: 10/08/24 21:05 Last Admin: 09/25/24 01:41 Dose: 5 mg Oxycodone HCl (Oxycodone Hcl Ir 5 Mg Tab (Immediate Release)) 5 mg PO TID [facility] Stop: 10/09/24 13:59 Last Admin: 09/26/24 08:31 Dose: 5 mg Pantoprazole Sodium (Pantoprazole 40 Mg Tab) 40 mg PO BID [facility] Stop: 10/25/24 20:59 Last Admin: 09/26/24 08:34 Dose: 40 mg Polyethylene Glycol (Polyethylene (Miralax) 17 Gm Pack) 17 gm PO DAILY PRN PRN Reason: Constipation Stop: 10/24/24 21:05 Sertraline HCl (Sertraline Hcl 50 Mg Tablet) 25 mg PO QAM [facility] Stop: 10/26/24 08:59 Last Admin: 09/26/24 08:34 Dose: 25 mg Vitamin D (Cholecalciferol 125 Mcg (5,000 Units) Tab) 125 mcg PO QAM [facility] Stop: 10/26/24 08:59 Last Admin: 09/26/24 08:34 Dose: 125 mcg (1) Intertrochanteric fracture of right hip Encounter type: initial encounter Fracture type: closed Fracture alignment: displaced Qualified Code(s): S72.141A - Displaced intertrochanteric fracture of right femur, initial encounter for closed fracture (2) Fall Encounter type: initial encounter Qualified Code(s): W19.XXXA - Unspecified fall, initial encounter
--- NOTE | 2024-09-26 10:20 | Cardiology Progress Note ---
Date of Service September 26, 2024 Assessment & Plan (1) PAF (paroxysmal atrial fibrillation): (2) Atrial fibrillation with RVR: (3) Hemorrhagic shock: Plan 74-year-old female admitted following mechanical fall with subsequent hip fracture. Course complicated by hemorrhagic shock, blood loss anemia hypotension and paroxysmal atrial fibrillation. Patient converted to sinus rhythm with IV amiodarone and underwent surgical hip repair today without difficulty. Echocardiogram not changed from prior studies with mild to moderate aortic stenosis noted preserved LV systolic function. Suggesting possible of elevation in right heart pressures Recommendations: Will stop IV amiodarone begin oral amiodarone 200 mg twice per day. Hold metoprolol. Agree with supplementation of magnesium and potassium Follow closely for nocturnal hypoxia given chronic edema and borderline darin vation pulmonary pressure 09/26/2024 Slowly improving postoperatively. Blood pressure improved heart rates trending higher but no further atrial fibrillation. Issues addressed as follows 1. Paroxysmal atrial fibrillation with known prior history. Lapsed into atrial fibrillation with rapid ventricular response, poorly tolerated in the setting of hemorrhagic shock acute injury. Now in sinus rhythm without recurrence. Will continue oral amiodarone with likely at least 30-day treatment course. Resume low-dose beta-alysia with metoprolol succinate 12.5 mg/day 2. Hemorrhagic shock with acute anemia superimposed on chronic anemia secondary to fall, hip fracture chronic anticoagulation. Ultimately would like to resume anticoagulation with apixaban once gait and hemodynamic stability assured. Hemoglobin 7.1 today would have low threshold for transfusion if drops further Admission and Anticipated Discharge Date Admission Date: September 24, 2024 Subjective Patient was seen and personally examined, chart, medications telemetry reviewed Patient sitting out of bed working with physical therapy. Some bleeding at distal incisional site. No chest pains or shortness of breath. Patient pale and frail appearing. With only surgical incision discomfort.No further arrhythmias, remains in sinus rhythm Review of Systems Review of Systems: All systems reviewed & are unremarkable except as noted in Subjective Physical Exam Constitutional: + thin and + frail appearing; no acute d istress Eyes: PERRL, conjunctivae normal, anicteric sclerae ENMT: external ear and nose normal, oropharynx normal Neck: trachea midline, no thyromegaly Respiratory: normal respiratory effort, lungs clear to auscultation Cardiovascular: Rate/Rhythm: regular rate and regular rhythm Heart Sounds: + murmur (Grade 2 over 6 systolic murmur) Vessels: no JVD Extremities: no edema Gastrointestinal (Abdomen): normal bowel sounds, soft, nontender, no hepatosplenomegaly Musculoskeletal: Ankle: + surgical drain present Results & Data Vital Signs (Past 12 Hours) Vital Signs Temp Pulse Pulse Resp BP Pulse Ox O2 Del Method 09/26/24 07:04 36.8 C 83 17 115/73 94 Room Air 09/26/24 03:15 36.4 C L 79 19 109/69 93 Room Air 09/25/24 23:00 82 09/25/24 22:28 36.8 C 78 17 142/61 H 96 Room Air Laboratory Results Laboratory Results - last 24 hr 09/24/24 09/25/24 09/25/24 18:02 12:44 15:24 WBC 13.99 H RBC 2.78 L Hgb 8.5 L Hct 26.2 L MCV 94.2 MCH 30.6 MCHC 32.4 RDW Std Deviation 56.5 H RDW Coeff of Valentina 16.3 H Plt Count 135 MPV 11.3 Immature Gran % (Auto) 0.4 Neut % (Auto) 86.7 Lymph % (Auto) 5.1 [place] % (Auto) 7.7 Eos % (Auto) 0.0 Baso % (Auto) 0.1 Neut # (Auto) 12.11 H Lymph # (Auto) 0.72 L [place] # (Auto) 1.08 H Eos # (Auto) 0.00 Baso # (Auto) 0.02 Immature Gran # (Auto) 0.06 Ovalocytes Echinocytes Sodium 135 L Potassium 4.3 Chloride 109 H Carbon Dioxide 20 L Anion Gap 6 BUN 20 Creatinine 0.75 Est Cr Clr Drug Dosing 63.2 eGFR 82.97 BUN/Creatinine Ratio 26.7 H Glucose 220 H POC Glucose 185 H Calcium 7.8 L Phosphorus Magnesium 2.0 25-OH Vitamin D Total Blood Type O Positive Antibody Screen NEGATIVE Crossmatch See Detail 09/25/24 09/26/24 09/26/24 16:16 06:52 07:06 WBC 14.11 H RBC 2.35 L Hgb 7.1 L Hct 22.2 L MCV 94.5 MCH 30.2 MCHC 32.0 RDW Std Deviation 56.1 H RDW Coeff of Valentina 16.4 H Plt Count 140 MPV 11.4 Immature Gran % (Auto) 0.4 Neut % (Auto) 79.0 Lymph % (Auto) 9.7 [place] % (Auto) 10.5 Eos % (Auto) 0.1 Baso % (Auto) 0.3 Neut # (Auto) 11.15 H Lymph # (Auto) 1.37 [place] # (Auto) 1.48 H Eos # (Auto) 0.01 Baso # (Auto) 0.04 Immature Gran # (Auto) 0.06 Ovalocytes 1+ Echinocytes 1+ Sodium 133 L Potassium 5.3 H D Chloride 106 Carbon Dioxide 19 L Anion Gap 8 BUN 26 H Creatinine 1.08 D Est Cr Clr Drug Dosing 44.9 eGFR 53.57 BUN/Creatinine Ratio 24.1 H Glucose 229 H POC Glucose 173 H 225 H Calcium 7.8 L Phosphorus 5.3 H Magnesium 1.9 25-OH Vitamin D Total 48.3 Blood Type Antibody Screen Crossmatch 09/26/24 09:09 WBC RBC Hgb Hct MCV MCH MCHC RDW Std Deviation RDW Coeff of Valentina Plt Count MPV Immature Gran % (Auto) Neut % (Auto) Lymph % (Auto) [place] % (Auto) Eos % (Auto) Baso % (Auto) Neut # (Auto) Lymph # (Auto) [place] # (Auto) Eos # (Auto) Baso # (Auto) Immature Gran # (Auto) Ovalocytes Echinocytes Sodium Potassium Chloride Carbon Dioxide Anion Gap BUN Creatinine Est Cr Clr Drug Dosing eGFR BUN/Creatinine Ratio Glucose POC Glucose 369 H* Calcium Phosphorus Magnesium 25-OH Vitamin D Total Blood Type Antibody Screen Crossmatch
[2024-09-26] MEDS: METOPROLOL SUCC 25MG EXT REL TAB PO SCH (11:22)
--- NOTE | 2024-09-26 13:12 | Orthopedic Progress Note ---
Date of Service September 26, 2024 Assessment & Plan (1) Intertrochanteric fracture of right hip: Overall she is doing about as well as expected. She is currently getting a unit of packed red blood cells today. She is not currently on any anticoagulants except an aspirin. I will let the hospitalist determine when to start up the anticoagulants given her acute blood loss anemia. She can be weightbearing as tolerated from my standpoint. The Prevena VAC dressing will be on for 7 days. She is orthopedically stable for discharge when medically ready. Full orthopedic discharge instructions were placed in the discharge summary. Sarita Renteria was seen and examined at bedside this morning. Overall she is doing fairly well. She is having a lot of pain in her hip which is to be expected. She had no acute events overnight. She has no complaints.. Review of Systems All systems reviewed & are unremarkable except as noted in HPI & below. Physical Exam On physical exam of the right hip, the Prevena VAC dressing is to suction. Her more distal dressing has been changed. She does have pain with any motion of the hip.. Results & Data Results & Data Laboratory Results . Diagnostic Findings Postoperative x-rays of the right hip show the prosthesis to be in anatomic alignment without any evidence of fracture, dislocation, or loosening.. PG Care Time/CCT Total # of Minutes Spent Total Time Spent with Patient: Total time spent is greater than 50% in coordination of care (as documented) at patient's floor/unit and/or counseling patient: Coding Level of Care Code 70391 Post Operative Follow-Up Diagnoses Closed displaced intertrochanteric fracture of right femur, initial encounter S72.141A Encounter type: initial encounter Fracture type: closed Fracture alignment: displaced (1) Intertrochanteric fracture of right hip Encounter type: initial encounter Fracture type: closed Fracture alignment: displaced Qualified Code(s): S72.141A - Displaced intertrochanteric fracture of right femur, initial encounter for closed fracture
--- NOTE | 2024-09-26 13:20 | Electrocardiogram Report ---
Test Reason : Blood Pressure : */* mmHG Vent. 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
[2024-09-26 14:23] LABS: Hematocrit (blood only) 27.5 % (37.0-47.0); Hemoglobin 8.9 g/dl (12.0-16.0)
[2024-09-26] MEDS: LANTUS PER UNIT CHARGE SC ONE (15:01)
--- OUTSIDE RECORDS SUMMARY | 2024-09-26 17:28 | External Medical Summary | Summary of Care ---
Author Name Unknown Organization [facility] Address [address] [place] [address] Phone [phone] Care Team Providers Care Tablet Repair Name Role Phone Maged Katz MD Primary Care Provider [phone] Reason for Visit * Reason Onset Date Comments Medication Refill 09/02/2024 Encounter Details Date Type Department Care Team (Late st Contact Info) Description 09/02/2024 [facility]ill [facility] [address] [facility] [place] [address] Maged Katz MD [address] [place] [address] Allergies Active Allergy Reactions Criticality Noted Date Comments Penicillins Hives 12/17/2023 Sulfa Antibiotics Nausea/vomiting Medium 02/04/2024 SEVERE NAUSEA documented as of this encounter (statuses as of 09/02/2024) Medications Acetaminophen ER 650 MG Oral Tablet Extended Release (Acetaminophen 8 Hour) Take 1 Tablet by mouth every 8 hours as needed. Active Apixaban 5 MG Oral Tablet (Eliquis) Take 1 Tablet by mouth in the morning and 1 Tablet before bedtime. 60 Tablet 11 08/06/2024 3:03 PM EDT Active Atorvastatin Calcium 40 MG Oral Tablet (Lipitor) Take 1 Tablet by mouth in the morning. 30 Tablet 11 08/06/2024 3:03 PM EDT 4 Active metFORMIN HCl 500 MG Oral Tablet (Glucophage) Take 2 Tablets by mouth 2 times a day with morning and evening meals. 120 Tablet 08/06/2024 3:03 PM EDT 4 Active Metoprolol Tartrate 25 MG Oral Tablet (Lopressor) Take 1/2 Tablets by mouth in the morning and 1/2 Tablets before bedtime. 30 Tablet 11 08/06/2024 3:03 PM EDT 4 Active Verapamil HCl 40 MG Oral Tablet (Isoptin) Take 1 Tablet by mouth in the morning and 1 Tablet before bedtime. 60 Tablet 11 08/06/2024 3:03 PM EDT 4 Active Sertraline HCl 25 MG Oral Tablet (Zoloft) Take 1 Tablet by mouth in the morning. 30 Tablet 08/06/2024 3:03 PM EDT 4 Active Aspirin 81 MG Oral Tablet Delayed Release (SB Low Dose ASA EC) Take 1 Tablet by mouth in the morning. 100 Tablet 04/19/2024 1:24 PM EDT 4 Active GNP Vitamin B-12 1000 MCG Oral Tablet Extended Release (Cyanocobalamin ER) Take 1 Tablet by mouth in the morning. 60 Tablet 07/13/2024 1:48 PM EDT 4 Active Vitamin D3 125 MCG (5000 UT) Oral Tablet Take 1 Tablet by mouth in the morning. 100 Tablet 05/12/2024 2:52 PM EDT 4 Active OneTouch Verio In Vitro Strip (Glucose Blood) Use up to 4 times a day E11.9 100 Strip 4 Active Calcitonin ([place]) 200 UNIT/ACT Nasal Solution (Fortical)Indica tions:History of compression fracture of spine Administer 1 [place] into one nostril in the morning. alternate nostrils.. 3.7 mL 08/06/2024 3:03 PM EDT 4 Active Ozempic (1 MG/DOSE) 4 MG/3ML Subcutaneous Solution Pen-injector (Semaglutide (1 MG/DOSE)) Inject 1 mg under the skin once a week. 3 mL 4 Active Alendronate Sodium 70 MG Oral Tablet (Fosamax)Indicat ions:Senile osteoporosis Take 1 Tablet by mouth once a week. with 8 oz. water 30 minutes before first meal of the day. Remain upright for 30 min after taking tablet 4 Tablet 11 4 Active Additional Information Patient not taking.Reported on 08/30/2024 Nystatin [id number] UNIT/GM External Powder (Nystop) Apply topically to affected area 3 times a day. Apply to skin fold under stomach 30 g 4 Active Pantoprazole Sodium 40 MG Oral Tablet Delayed Release (Protonix)Indica tions:Postoperat isacc hypothyroidism,G astroesophageal reflux disease without esophagitis Take 1 Tablet by mouth in the morning and 1 Tablet before bedtime. 60 Tablet 3 08/06/2024 3:03 PM EDT 4 Active Levothyroxine Sodium 150 MCG Oral Tablet (Levoxyl)Indicat ions:Postoperati ve hypothyroidism,G astroesophageal reflux disease without esophagitis Take 1 Tablet by mouth daily first thing in the morning. (at least 30 min prior to breakfast or other meds) 30 Tablet 3 08/06/2024 3:03 PM EDT 4 Active Ferrous Sulfate 325 (65 Fe) MG Oral Tablet (Feosol)Indicati ons:Postoperativ e hypothyroidism,G astroesophageal reflux disease without esophagitis Take 1 Tablet by mouth in the morning and 1 Tablet before bedtime. 60 Tablet 3 08/06/2024 3:03 PM EDT 4 Active Magnesium Chloride 64 MG Oral Tablet Delayed Release (Mag-64)Indicati ons:Postoperativ e hypothyroidism,G astroesophageal reflux disease without esophagitis Take 1 Tablet by mouth in the morning and 1 Tablet before bedtime. 60 Tablet 3 08/06/2024 3:03 PM EDT 4 Active oxyCODONE HCl 5 MG Oral Tablet (Oxy IR)Indications:H istory of compression fracture of spine Take 1 Tablet by mouth every 8 hours as needed for Pain, Severe. 60 Tablet 08/18/2024 4:29 PM EDT 4 Active Lidocaine 5 % External Patch (Lidoderm) Place 1 Patch topically on the skin daily as needed for Pain. 4 Active Mupirocin 2 % External Ointment (Bactroban) Apply topically to affected area 3 times a day for 14 days. To affected area for up to 14 days. 22 g 4 09/13/20 Active Cephalexin 500 MG Oral Capsule Take 1 Capsule by mouth in the morning and 1 Capsule at noon and 1 Capsule before bedtime. Do all this for 5 days. 15 Capsule 4 09/04/20 Active documented as of this encounter (statuses as of 09/02/2024) Active Problems Problem Noted Date Diagnosed Date Chronic diastolic congestive heart failure 08/30 Type 2 diabetes mellitus wit h diabetic peripheral angiopathy without gangrene 08/30/2024 Postsurgical hypothyroidism 08/30/2024 Senile osteoporosis 07/14/2024 History of compression fracture [...] as of this encounter (statuses as of 09/02/2024) Resolved Problems Problem Noted Date Diagnosed Date Resolved Date Pure hypercholesterolemia 12/30/2023 Pre-operative general physical examination 12/30/2023 03/25/2024 Olecranon fracture, left, cl osed, with routine healing, subsequent encounter 12/23/2023 Overview (01/15/2024): Changed initial encounter to subsequent 01/15/24 HL documented as of this encounter (statuses as of 09/02/2024) Immunizations Name Administration Dates Next Due COVID-19 mRNA, LNP-s, No Pre serve, 2-Dose Series (Moderna) 04/10/2022,11/02/2021 COVID-19 mRNA, LNP-s, No Pre serve, 2-Dose Series (Pfizer) 02/05/2021,01/15/2021 Pneumococcal Conjugate Vacc, 13 Valent (Prevnar) 2015 Pneumococcal Polysaccharide PPV23 (Pneumovax) 02/08/2019,08/24/2013 Seasonal Influenza Vac., MDV , IM, 0.5 mL (Fluzone) 08/04/2018 Seasonal Influenza Virus Vac cine, Unspecified Formulation 07/22/2023,06/26/2022,07/09/2021,07/20,06/30/2017,07/03/2015,07/27/2014 ,07/14/2013,06/30/2012,08/07/2011,06/20,09/23/2009,08/02/2008 Seasonal Influenza, High Dos e, Trivalent, PF, IM (Fluzone HD) 08/18/2024 TDAP (age 10 and older)(Boostrix) 02/17/2024 Varicella Zoster Vaccine (Adult) 09/24/2010 Zoster Vaccine Recombinant (Shingrix) 02/17/2024 documented as of this encounter Social History Tobacco Use Types Packs/Day Years Used Date Smoking Tobacco: Never Smokeless Tobacco: Never Alcohol Use Standard Drinks/Week Comments Never 0 (1 standard drink = 0.6 oz pur e alcohol) rare PHQ-2 Answer Date Recorded PHQ Adult Total Score 0 07/27/2024 Hunger Vital Sign Answer Date Recorded Within the past 12 months, y ou worried that your food would run out before you got the money to buy more. Never true 07/27/20 24 Within the past 12 months, t he food you bought just didn't last and you didn't have money to get more. Never true 07/27/2024 Childcare Answer Date Recorded Do you feel overwhelmed with taking care of a child, family member or friend? No 07/27/2024 Does your family need help f inding childcare? (Household - for ages 0-17 years) Not on file 07/27/2024 Clothing Answer Date Recorded Have you been unable to get clothing when it was really needed? No 07/27/2024 Is your family able to get c lothes or diapers when needed? (Household - for ages 0-17 years) Not on file 07/27/2024 Personal Safety Answer Date Recorded Do you feel unsafe or have concerns for your saf ety? No 07/27/2024 Do you have concerns for you r family's safety? (Household - for ages 0-17 years) Not on file 07/27/2024 Utilities Answer Date Recorded Do you have trouble paying y our heating, water, or electric bill? No 07/27/2024 Is your family able to pay t he heat, water, or electric bill? (Household - for ages 0-17 years) Not on file 07/27/2024 Does your family have access to good internet? (Household - for ages 0-17 years) Not on file 07/27/2024 Employment Status Answer Date Recorded Are you unemployed or without regular income? No 07/27/2024 Does the household have a re lar source of income? (Household - for ages 0-17 years) Not on file 07/27/2024 Social Connections Answer Date Recorded How often do you feel lonely or isolated from those around you? Sometimes 07/27/2024 Financial Resource Strain Answer Date R ecorded Do you have any trouble payi ng for your medications, or do you think you might in the future? No 07/27/2024 Does your family have troubl e paying for medicine? (Household - for ages 0-17 years) Not on file 07/27/2024 Transportation Needs Answer Date Record ed READ ONLY Do you have troubl e getting a ride to medical visits or work? Never True 07/27/2024 Does your family have a hard time getting a ride to doctors visits? (Household - for ages 0-17 years) Not on file 07/27/2024 Has lack of transportation k ept you from medical appointments, meetings, work, or from getting things needed for daily living? Check all that apply. No 07/27/2024 Do you (or your family) have trouble finding or paying for a ride (transportation)? (Household - for ages 0-17 years) Not on file 07/27/2024 Housing Stability Answer Date Recorded Do you currently live in a s helter or have no steady place to sleep at night? No 07/27/2024 READ ONLY Do you think you a re at risk of becoming homeless? No 07/27/2024 Does your family worry about paying for your home or becoming homeless? (Household - for ages 0-17 years) Not on file 1 Are you homeless or worried that you might be in the future? No 07/27/2024 Are you (or your family) cherrie eless or worried that you might be in the future? (Household - for ages 0-17 years) Not on file Food Insecurity Answer Date Recorded Do you need food for this week? No 07/27/2024 Are you able to get enough f ood for your family? (Household - for ages 0-17 years) Not on file 07/27/2024 Does your family need food t his week? (Household - for ages 0-17 years) Not on file 07/27/2024 Do you always have enough fo od for your family? (Household - for ages 0-17 years) Not on file 07/27/2024 Comments No Sex and Gender Information Value Date Recorded Sex Assigned at Female 01/27/2024 8:14 PM EDT Legal Sex Female 1:12 PM EST Gender Identity Female 01/27/2024 8:14 PM EDT Sexual Orientation Straight 01/27/2024 8: 14 PM EDT documented as of this encounter Miscellaneous Notes * Telephone Encounter - Robbie Luna PHARM Tech - 09/02/2024 11:57 AM EST Pt calling to request Nystatin [id number] UNIT/GM External Powder (Nystop). Informed pt that RX is available at their pharmacy. Pt verbalized understanding and stated they will check with their pharmacy regarding this medication. Thank you, Robbie Luna Retail Aide I [facility]) 09/02/2024, 11:58 AM documented in this encounter Plan of Treatment Upcoming Encounters Date Type Department Care Team (Late st Contact Info) Description 09/27/2024 10:00 AM EST Office Visit Cardiology, [facility] [address] [place] [address] Deondre Gordillo O, DO [address] [place] [address] 11/17/2024 3:00 PM EST Office Visit Rheumatology [facility] [address] [facility] [facility] [place] [address] Pierre Larry CRNP [address] [facility] [place] [address] Health Maintenance Due Date Last Done Comments Albumin/Creatinine Ratio 1968 Adult Wellness Visit 09/20/2024 Postpon ed from 2015 (Other) Diabetic Foot Exam 02/16/2025 02/17/2024 HbA1c 02/16/2025 08/18/2024, 12/18, 08/05/2023, Additional history exists Diabetic Eye Exam 03/23/2025 03/23/2024, , 02/17/2024 Depression Screening 07/27/2025 07/27/2024 GFR 08/18/2025 08/18/2024, 12/30/2023 TSH 08/18/2025 08/18/2024, 12/30/2023 DXA Scan 07/07/2026 07/07/2024, 06/20, 03/05/2021, Additional history exists DTap/Tdap Vaccines (2 - Td or Tdap) 02/16/2034 02/17/2024 Pneumococcal Vaccine: 65+ Years Completed 02/08/2019, 2015, 08/24/2013 COVID-19 Vaccine Discontinued 04/10/2022, , 02/05/2021, Additional history exists VITAMIN D LEVEL ONCE IN A LIFETIME-USE SMARTSET# [id number] Completed 10/05/2022, 07/05/2022, 08/03/2020, Additional history exists Zoster Vaccines Discontinued 02/17/2024, 09/24/2010 Colonoscopy Discontinued 07/23/2024, 07/23/2024 Colorectal Cancer Screening Discontinued Influenza Vaccine (FLU shot) Completed 08/18/2024, 07/22/2023, 06/26/2022, Additional history exists Cologuard Discontinued Fecal Occult Blood Test Discontinued HPV (Gardasil) Vaccine Aged Out No lo nger eligible based on patient's age to complete this topic Hepatitis B Vaccine Aged Out No longe r eligible based on patient's age to complete this topic Hepatitis C Screening Discontinued MENINGOCOCCAL (MENACTRA/MENVEO) Aged Out No longer eligible based on patient's age to complete this topic Sigmoidoscopy Discontinued documented as of this encounter Medical Devices Implanted Type Area Electrical Engineer Device Identifier Shelf Expiration Date Model / Serial / Lot Olecranon Plate Implanted:Qty: 1 on 01/02/2024 by Zachary Reese DO at [facility] Left: Elbow [id number] / / Screw Bn T10 Ft St Lk 3.5x18mm - [id number] Implanted:Qty: 2 on 01/02/2024 by Zachary Reese DO at [facility] Left: Elbow ADILIA : ORTHOPAEDICS [id number] / / Screw Bn T10 Ft St Lk 3.5x20mm - [id number] Implanted:Qty: 1 on 01/02/2024 by Zachary Reese DO at [facility] Left: Elbow ADILIA : ORTHOPAEDICS [id number] / / Screw Cortical 3.5x20 - [id number] Implanted:Qty: 1 on 01/02/2024 by Zachary Reese DO at [facility] Left: Elbow ADILIA : ORTHOPAEDICS [id number] / / Screw Bn T10 Ft St Lk 3.5x50mm - [id number] Implanted:Qty: 1 on 01/02/2024 by Zachary Reese, DO at [facility] Left: Elbow ADILIA : ORTHOPAEDICS [id number] / / documented as of this encounter Advance Directives * Full Code (Latest Code Status on File) Date Activated Date Inactivated Comments 01/02/2024 11:34 AM 01/02/2024 5:05 PM This order reflects the patients wishes and were consensually agreed upon. Question Answer Comments Discussion of Advance Direct sil occurred with: Not Discussed due to patient's condition Care Teams Tablet Repair Relationship Specialty Start Date End Date Maged Katz MD [address] [place] [address] PCP - General Family Medicine 03/26/24 documented as of this encounter
--- OUTSIDE RECORDS SUMMARY | 2024-09-26 17:28 | External Medical Summary | Summary of Care ---
Author Name Unknown Organization [facility] Address [address] [place] [address] Phone [phone] Care Team Providers Care Radio Board Operator Name Role Phone Maged Katz MD Primary Care Provider [phone] Reason for Visit * Reason Comments eRx-Medication Refill Encounter Details Date Type Department Care Team (Late st Contact Info) Description 09/02/2024 Refill Family Practice [facility] [address] [place] [address] Maged Katz MD [address] [place] [address] Allergies Active Allergy Reactions Criticality Noted Date Comments Penicillins Hives 12/17/2023 Sulfa Antibiotics Nausea/vomiting Medium 02/04/2024 SEVERE NAUSEA documented as of this encounter (statuses as of 09/03/2024) Medications Acetaminophen ER 650 MG Oral Tablet [...] morning and evening meals. 120 Tablet 11 08/06/2024 3:03 PM EDT 4 Active Metoprolol [...] 11 08/06/2024 3:03 PM EDT 4 Active Additional Information Patient not taking.Reported on 09/02/2024 Sertraline HCl 25 MG Oral Tablet (Zoloft) Take 1 Tablet by mouth in the morning. 30 Tablet 11 08/06/2024 3:03 PM EDT 4 Active Aspirin [...] day E11.9 100 Strip 4 Active Calcitonin ([place]) 200 UNIT/ACT Nasal Solution (Fortical)Indica tions:History of compression fracture of spine Administer 1 [place] into one nostril in the morning. alternate [...] Additional Information Patient not taking.Reported on 08/30/2024 Pantoprazole Sodium 40 MG Oral Tablet Delayed [...] as of this encounter (statuses as of 09/03/2024) Active Problems Problem Noted Date Diagnosed Date [...] as of this encounter (statuses as of 09/03/2024) Resolved Problems Problem Noted Date Diagnosed Date Resolved Date Pure hypercholesterolemia 12/30/2023 Pre-operative general physical examination 12/30/2023 03/25/2024 Olecranon fracture, left, cl osed, with routine healing, subsequent encounter 12/23/2023 Overview (01/15/2024): Changed initial encounter to subsequent 01/15/24 HL documented as of this encounter (statuses as of 09/03/2024) Immunizations Name Administration Dates Next Due COVID-19 [...] 07/27/2024 Does the household have a re gular [...] encounter Miscellaneous Notes * Telephone Encounter - Adrien Cotton RPh - 09/03/2024 4:12 PM ESTRefused Prescriptions: Disp Refills Nystatin [id number] UNIT/GM External Powder (N*15 g 0 Sig: APPLY POWDER TOPICALLY TO AFFECTED AREA (SKIN FOLD UNDER THE STOMACH) THREE TIMES DAILY Refused By: ADRIEN COTTON Reason for Refusal: Duplicate Request * Telephone Encounter - Adrien Cotton RPh - 09/03/2024 4:12 PM ESTRefused Prescriptions: Disp Refills Nystatin [id number] UNIT/GM External Powder (N*15 g 0 Sig: APPLY POWDER TOPICALLY TO AFFECTED AREA (SKIN FOLD UNDER THE STOMACH) THREE TIMES DAILY Refused By: ADRIEN COTTON Reason for Refusal: Duplicate Request * Telephone Encounter - Roman Edwards band sawing machine operator - 09/02/2024 12:04 PM EST Did you pend patient's preferred pharmacy and medication before forwarding?yes Pharmacy: [facility] [id number] Pending Prescriptions: Disp Refills Nystatin [id number] UNIT/GM External Powder (*15 g 0 Sig: APPLY POWDER TOPICALLY TO AFFECTED AREA (SKIN FOLD UNDER THE STOMACH) THREE TIMES DAILY Last Visit: 08/30/2024 (in office), 06/22/2024 (telemedicine) Next Visit: Visit date not found If no future appointments scheduled, and last appointment is greater than a year ago, please schedule patient for a follow-up appointment Last date the medication was ordered: 08/03/2024 Is this request for a controlled substance?No Urine Drug Screen:No results found for this or any previous visit. Patient Phone Numbers Labs: Lab Results Component Value Date/Time CREAT 0.7 08/18/2024 04:23 PM POTASSIUM 5.1 12/30/2023 10:51 AM TSH 1.88 08/18/2024 04:23 PM ALT 14 12/30/2023 10:51 AM HGBA1C 4.9 08/18/2024 04:23 PM HGBA1C 7.0 (H) 08/05/2023 04:47 AM documented in this encounter Plan of Treatment Upcoming Encounters Date Type Department Care Team (Late st Contact Info) Description 09/27/2024 10:00 AM EST Office Visit Cardiology, [facility] [address] [place] [address] Deondre Gordillo, DO [address] [place] [address] 11/17/2024 3:00 PM EST Office Visit Rheumatology [facility] [address] [facility] [place] [address] Pierre Larry CRNP [address] [facility] [place] [address] Health Maintenance Due Date Last Done Comments [...] D LEVEL ONCE IN A LIFETIME-USE SMARTSET# [id number] Completed 10/05/2022, 07/05/2022, 08/03/2020, Additional history exists [...] this encounter Medical Devices Implanted Type Area Squirt Machine Operator Device Identifier Shelf Expiration Date Model / Serial / Lot Olecranon Plate Implanted:Qty: 1 on 01/02/2024 by Zachary Reese DO at [facility] Left: Elbow [id number] / / Screw Bn T10 Ft St Lk 3.5x18mm - [id number] Implanted:Qty: 2 on 01/02/2024 by Zachary Reese DO at [facility] Left: Elbow ADILIA : ORTHOPAEDICS [id number] / / Screw Bn T10 Ft St Lk 3.5x20mm - [id number] Implanted:Qty: 1 on 01/02/2024 by Zachary Reese DO at [facility] Left: Elbow ADILIA : ORTHOPAEDICS [id number] / / Screw Cortical 3.5x20 - [id number] Implanted:Qty: 1 on 01/02/2024 by Zachary Reese DO at [facility] Left: Elbow ADILIA : ORTHOPAEDICS [id number] / / Screw Bn T10 Ft St Lk 3.5x50mm - [id number] Implanted:Qty: 1 on 01/02/2024 by Zachary Reese DO at [facility] Left: Elbow ADILIA : ORTHOPAEDICS [id number] / / documented as of this encounter Advance Directives * Full Code (Latest Code Status on File) Date Activated Date Inactivated Comments 01/02/2024 11:34 AM 01/02/2024 5:05 PM This order reflects the patients wishes and were consensually agreed upon. Question Answer Comments Discussion of Advance Direct sil occurred with: Not Discussed due to patient's condition Care Teams Radio Board Operator Relationship Specialty Start Date End Date Maged Katz MD [address] [place] [address] PCP - General Family Medicine 03/26/24 documented as of this encounter
--- OUTSIDE RECORDS SUMMARY | 2024-09-26 17:28 | External Medical Summary | Summary of Care ---
Author Name Unknown Organization [facility] Address [address] [place] [address] Phone [phone] Care Team Providers Care Aviation Safety Officer Name Role Phone June Guerrero MD Primary Care Provider [phone] Reason for Visit * Reason Onset Date Comments Medication Refill 09/02/2024 Encounter Details Date Type Department Care Team (Late st Contact Info) Description 09/02/2024 Refill [facility] [address] [facility] [place] [address] Larissa Mcconnell, RN [address] [place] [address] Need for case management follow-up*; Overweight (BMI 25.0-29.9) Allergies Active Allergy Reactions Criticality Noted Date [...] 60 Tablet 11 08/06/2024 3:03 PM EDT 02/17/20 24 Active Atorvastatin Calcium 40 MG Oral Tablet (Lipitor) Take 1 Tablet by mouth in the morning. 30 Tablet 11 08/06/2024 3:03 PM EDT 02/17/20 24 Active metFORMIN HCl 500 MG Oral Tablet (Glucophage) Take 2 Tablets by mouth 2 times a day with morning and evening meals. 120 Tablet 08/06/2024 3:03 PM EDT 02/17/20 24 Active Metoprolol Tartrate 25 MG Oral Tablet (Lopressor) Take 1/2 Tablets by mouth in the morning and 1/2 Tablets before bedtime. 30 Tablet 08/06/2024 3:03 PM EDT 02/17/20 24 Active Verapamil HCl 40 MG Oral Tablet (Isoptin) Take 1 Tablet by mouth in the morning and 1 Tablet before bedtime. 60 Tablet 08/06/2024 3:03 PM EDT 02/17/20 24 Active Additional Information Patient not taking.Reported on 09/02/2024 Sertraline HCl 25 MG Oral Tablet (Zoloft) Take 1 Tablet by mouth in the morning. 30 Tablet 08/06/2024 3:03 PM EDT 02/17/20 24 Active Aspirin 81 MG Oral Tablet Delayed Release (SB Low Dose ASA EC) Take 1 Tablet by mouth in the morning. 100 Tablet 04/19/2024 1:24 PM EDT 02/17/20 24 Active GNP Vitamin B-12 1000 MCG Oral Tablet Extended Release (Cyanocobalamin ER) Take 1 Tablet by mouth in the morning. 60 Tablet 07/13/2024 1:48 PM EDT 02/17/20 24 Active Vitamin D3 125 MCG (5000 UT) Oral Tablet Take 1 Tablet by mouth in the morning. 100 Tablet 05/12/2024 2:52 PM EDT 02/17/20 24 Active OneTouch Verio In Vitro Strip (Glucose Blood) Use up to 4 times a day E11.9 100 Strip 05/26/20 24 Active Calcitonin ([place]) 200 UNIT/ACT Nasal Solution (Fortical)Indica tions:History of compression fracture of spine Administer 1 [place] into one nostril in the morning. alternate nostrils.. 3.7 mL 08/06/2024 3:03 PM EDT 06/22/20 24 Active Ozempic (1 MG/DOSE) 4 MG/3ML Subcutaneous Solution Pen-injector (Semaglutide (1 MG/DOSE)) Inject 1 mg under the skin once a week. 3 mL 07/02/20 24 Active Alendronate Sodium 70 MG Oral Tablet (Fosamax)Indicat ions:Senile osteoporosis Take 1 Tablet by mouth once a week. with 8 oz. water 30 minutes before first meal of the day. Remain upright for 30 min after taking tablet 4 Tablet 07/14/20 Active Additional Information Patient not taking.Reported on 08/30/2024 Pantoprazole Sodium 40 MG Oral Tablet Delayed Release (Protonix)Indica tions:Postoperat isacc hypothyroidism,G astroesophageal reflux disease without esophagitis Take 1 Tablet by mouth in the morning and 1 Tablet before bedtime. 60 Tablet 3 08/06/2024 3:03 PM EDT 08/03/20 24 Active Levothyroxine Sodium 150 MCG Oral Tablet (Levoxyl)Indicat ions:Postoperati ve hypothyroidism,G astroesophageal reflux disease without esophagitis Take 1 Tablet by mouth daily first thing in the morning. (at least 30 min prior to breakfast or other meds) 30 Tablet 3 08/06/2024 3:03 PM EDT 08/03/20 24 Active Ferrous Sulfate 325 (65 Fe) MG Oral Tablet (Feosol)Indicati ons:Postoperativ e hypothyroidism,G astroesophageal reflux disease without esophagitis Take 1 Tablet by mouth in the morning and 1 Tablet before bedtime. 60 Tablet 3 08/06/2024 3:03 PM EDT 08/03/20 24 Active Magnesium Chloride 64 MG Oral Tablet Delayed Release (Mag-64)Indicati ons:Postoperativ e hypothyroidism,G astroesophageal reflux disease without esophagitis Take 1 Tablet by mouth in the morning and 1 Tablet before bedtime. 60 Tablet 3 08/06/2024 3:03 PM EDT 08/03/20 24 Active oxyCODONE HCl 5 MG Oral Tablet (Oxy IR)Indications:H istory of compression fracture of spine Take 1 Tablet by mouth every 8 hours as needed for Pain, Severe. 60 Tablet 08/18/2024 4:29 PM EDT 08/18/20 24 Active Lidocaine 5 % External Patch (Lidoderm) Place 1 Patch topically on the skin daily as needed for Pain. 06/09/20 24 Active Mupirocin 2 % External Ointment (Bactroban) Apply topically to affected area 3 times a day for 14 days. To affected area for up to 14 days. 22 g 08/30/20 24 Active Cephalexin 500 MG Oral Capsule Take 1 Capsule by mouth in the morning and 1 Capsule at noon and 1 Capsule before bedtime. Do all this for 5 days. 15 Capsule 08/30/20 24 Active Nystatin 177827 UNIT/GM External Powder (Nystop)Indicati ons:Need for case management follow-up,Overwe ight (BMI 25.0-29.9) Apply topically to affected area 3 times a day. Apply to skin fold under stomach 30 g 09/02/20 Active Nystatin 884330 UNIT/GM External Powder (Nystop) Apply topically to affected area 3 times a day. Apply to skin fold under stomach 30 g 08/03/20 24 Discontin ued(Refil l) documented as of this encounter (statuses as of 09/02/2024) Active Problems Problem Noted Date Diagnosed Date Chronic diastolic congestive heart failure 08/30 Type 2 diabetes mellitus wit h diabetic peripheral angiopathy without gangrene 08/30/2024 Postsurgical hypothyroidism 08/30/2024 Senile osteoporosis 07/14/2024 History of compression fracture of spine Dyslipidemia 03/25/2024 Overweight (BMI 25.0-29.9) 03/25/2024 Type [...] No 07/27/2024 Are you (or your family) hcerrie eless or worried that you might be [...] Miscellaneous Notes * Telephone Encounter - June Guerrero MD - 09/02/2024 11:00 PM ESTSigned Prescriptions: Disp Refills Nystatin 879821 UNIT/GM External Powder (N*30 g 0 Sig: Apply topically to affected area 3 times a day. Apply to skin fold under stomach Authorizing Provider: JUNE GUERRERO * Telephone Encounter - Fiordaliza Manuel LPN - 09/02/2024 3:50 PM EST Did you pend patient's preferred pharmacy and medication before forwarding?yes Pharmacy: [facility] [id number] [facility] Pending Prescriptions: Disp Refills Nystatin 817792 UNIT/GM External Powder (*30 g 0 Sig: Apply topically to affected area 3 times a day. Apply to skin fold under stomach Last Visit: 08/30/2024 (in office), 06/22/2024 (telemedicine) [...] PM HGBA1C 7.0 (H) 08/05/2023 04:47 AM * Telephone Encounter - Larissa Mcconnell RN - 09/02/2024 2:32 PM EST Pending Prescriptions: Disp Refills Nystatin 630073 UNIT/GM External Powder (*30 g 0 Sig: Apply topically to affected area 3 times a day. Apply to skin fold under stomach * Telephone Encounter - Larissa Mcconnell RN - 09/02/2024 2:30 PM EST [email or web address]. Patient is in need for nystatin cream. Thank you! documented in this encounter Plan of Treatment Upcoming Encounters Date Type Department Care Team (Late st Contact Info) Description 09/27/2024 10:00 AM EST Office Visit Cardiology, [facility] [address] [place] [address] Deondre Gordillo DO [address] [place] [address] 11/17/2024 3:00 PM EST Office Visit Rheumatology [facility] [address] [place] [address] Pierre Larry CRNP [address] [place] [address] Health Maintenance Due Date Last Done Comments [...] D LEVEL ONCE IN A LIFETIME-USE SMARTSET# [id number] Completed 10/05/2022, 07/05/2022, 08/03/2020, Additional history exists [...] this encounter Medical Devices Implanted Type Area Environmental Services Director Device Identifier Shelf Expiration Date Model / Serial / Lot Olecranon Plate Implanted:Qty: 1 on 01/02/2024 by Zachary Reese DO at [facility] Left: Elbow [id number] / / Screw Bn T10 Ft [employer] Lk 3.5x18mm - [id number] Implanted:Qty: 2 on 01/02/2024 by Zachary Reese DO at [facility] Left: Elbow ADILIA : ORTHOP[employer] [id number] / / Screw Bn T10 Ft [address] Lk 3.5x20mm - [id number] Implanted:Qty: 1 on 01/02/2024 by Zachary Reese DO at [facility] Left: Elbow ADILIA : ORTH[employer] [id number] / / Screw Cortical 3.5x20 - [id number] Implanted:Qty: 1 on 01/02/2024 by Zachary Reese DO at [facility] Left: Elbow ADILIA : ORTHOP[employer] [id number] / / Screw Bn T10 [address]t [address] Lk 3.5x50mm - [id number] Implanted:Qty: 1 on 01/02/2024 by Zachary Reese DO at OR [facility] Left: Elbow ADILIA : ORTHOPAEDICS [id number] / / documented as of this encounter Visit Diagnoses Diagnosis Need for case management follow-up- Primary Overweight (BMI 25.0-29.9) Overweight documented in this encounter Advance Directives * Full Code (Latest Code Status on File) Date Activated Date Inactivated Comments 01/02/2024 11:34 AM 01/02/2024 5:05 PM This order reflects the patients wishes and were consensually agreed upon. Question Answer Comments Discussion of Advance Direct sil occurred with: Not Discussed due to patient's condition Care Teams Aviation Safety Officer Relationship Specialty Start Date End Date June Guerrero MD [address] [place] [address] PCP - General Family Medicine 03/26/24 documented as of this encounter
--- OUTSIDE RECORDS SUMMARY | 2024-09-26 17:28 | External Medical Summary | Summary of Care ---
Author Name Unknown Organization [facility] Address [address] [place] [address] Phone [phone] Care Team Providers Care House Worker Name Role Phone Maged Katz MD Primary Care Provider [phone] Reason for Visit * Reason Onset Date Comments Hospital Follow-Up Medication Administration 08/18/2024 Flu an d/or Pneumo Inj Hospital Follow-Up 08/18/2024 Encounter Details Date Type Department Care Team (Late st Contact Info) Description 08/18/2024 3:20 PM EDT Office Visit [facility] [address] [facility] [place] [address] Maged Katz MD [address] [facility] [place] [address] Hospital discharge follow-up*; Type 2 diabetes mellitus with hemoglobin A1c goal of less than 8.0% (HCC); Postoperative hypothyroidism; Longstanding persistent atrial fibrillation (HCC); Overweight (BMI 25.0-29.9); History of thyroid cancer; History of breast cancer; Need for prophylactic vaccination and inoculation against influenza; 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 Active Apixaban 5 MG Oral Tablet (Eliquis) Take 1 Tablet by mouth in the morning and 1 Tablet before bedtime. 60 Tablet 02/17/2024 Active Additional Information Patient not taking.Reported on 07/27/2024 Atorvastatin Calcium 40 MG Oral Tablet (Lipitor) Take 1 Tablet by mouth in the morning. 30 Tablet 02/17/2024 Active metFORMIN HCl 500 MG Oral Tablet (Glucophage) Take 2 Tablets by mouth 2 times a day with morning and evening meals. 120 Tablet 02/17/2024 Active Metoprolol Tartrate 25 MG Oral Tablet (Lopressor) Take 1/2 Tablets by mouth in the morning and 1/2 Tablets before bedtime. 30 Tablet 02/17/2024 Active Verapamil HCl 40 [...] in the morning. 100 Tablet 02/17/2024 Active Additional Information Patient not taking.Reported on 07/27/2024 GNP Vitamin B-12 1000 MCG Oral Tablet Extended Release (Cyanocobalamin ER) Take 1 Tablet by mouth in the morning. 60 Tablet 02/17/2024 Active Vitamin D3 125 MCG (5000 UT) Oral Tablet Take 1 Tablet by mouth in the morning. 100 Tablet 02/17/2024 Active OneTouch Verio In Vitro Strip (Glucose Blood) Use up to 4 times a day E11.9 100 Strip 05/26/2024 Active Calcitonin ([place]) 200 UNIT/ACT Nasal Solution (Fortical)Indicati ons:History of compression fracture of spine Administer 1 [place] into one nostril in the morning. alternate nostrils.. 3.7 mL 06/22/2024 Active Ozempic (1 MG/DOSE) 4 MG/3ML Subcutaneous Solution Pen-injector (Semaglutide (1 MG/DOSE)) Inject 1 mg under the skin once a week. 3 mL 07/02/2024 Active Alendronate Sodium 70 MG Oral Tablet (Fosamax)Indicatio ns:Senile osteoporosis Take 1 Tablet by mouth once a week. with 8 oz. water 30 minutes before first meal of the day. Remain upright for 30 min after taking tablet 4 Tablet 11 07/14/2024 Active Additional Information Patient not taking.Reported on 07/27/2024 Nystatin 938251 UNIT/GM External Powder (Nystop) Apply topically to affected area 3 times a day. Apply to skin fold under stomach 30 g 08/03/2024 Active Pantoprazole Sodium 40 MG Oral Tablet Delayed Release (Protonix)Indicati ons:Postoperative hypothyroidism,Gas troesophageal reflux disease without esophagitis Take 1 Tablet by mouth in the morning and 1 Tablet before bedtime. 60 Tablet 3 08/03/2024 Active Levothyroxine Sodium 150 MCG Oral Tablet (Levoxyl)Indicatio ns:Postoperative hypothyroidism,Gas troesophageal reflux disease without esophagitis Take 1 Tablet by mouth daily first thing in the morning. (at least 30 min prior to breakfast or other meds) 30 Tablet 3 08/03/2024 Active Ferrous Sulfate 325 (65 Fe) MG Oral Tablet (Feosol)Indication s:Postoperative hypothyroidism,Gas troesophageal reflux disease without esophagitis Take 1 Tablet by mouth in the morning and 1 Tablet before bedtime. 60 Tablet 3 08/03/2024 Active Magnesium Chloride 64 MG Oral Tablet Delayed Release (Mag-64)Indication s:Postoperative hypothyroidism,Gas troesophageal reflux disease without esophagitis Take 1 Tablet by mouth in the morning and 1 Tablet before bedtime. 60 Tablet 3 08/03/2024 Active oxyCODONE HCl 5 MG Oral Tablet (Oxy IR)Indications:His tory of compression fracture of spine Take 1 Tablet by mouth every 8 hours as needed for Pain, Severe. 60 Tablet 08/18/2024 Active oxyCODONE HCl 5 MG Oral Tablet (Oxy IR)Indications:His tory of compression fracture of spine Take 1 Tablet by mouth every 8 hours as needed for Pain, Severe. 60 Tablet 06/22/2024 Discontinue d(Refill) documented as of this encounter (statuses as of 08/19/2024) Active Problems Problem Noted Date Diagnosed Date [...] as of this encounter (statuses as of 08/19/2024) Resolved Problems Problem Noted Date Diagnosed Date Resolved Date Pure hypercholesterolemia 12/30/2023 Pre-operative general physical examination 12/30/2023 03/25/2024 Olecranon fracture, left, cl osed, with routine healing, subsequent encounter 12/23/2023 Overview: Changed initial encounter to subsequent 01/15/24 [facility] documented as of this encounter (statuses as of 08/19/2024) Immunizations Name Administration Dates Next Due COVID-19 [...] ages 0-17 years) Not on file 07/27/2024 Sex and Gender Information Value Date Recorded Sex Assigned at Female 01/27/2024 8:14 PM EDT Gender Identity Female 01/27/2024 8:14 PM EDT Sexual Orientation Straight 01/27/2024 8: 14 PM EDT Job Start Date Occupation Industry Not on file Not on file Not on file documented as of this encounter Last Filed Vital Signs Vital Sign Reading Time Taken Comments Blood Pressure 124/68 08/18/2024 3:42 PM EDT Pulse 72 08/18/2024 3:42 PM EDT Temperature 36.6 C (97.8 F) 08/18/2024 3:42 PM ED T Respiratory Rate 18 08/18/2024 3:42 PM EDT Oxygen Saturation - - Inhaled Oxygen Concentration - - Weight 68.5 kg (151 lb) 08/18/2024 3:42 PM EDT Height 160 cm (5' 3") 08/18/2024 3:42 PM EDT Body Mass Index 26.75 08/18/2024 3:42 PM EDT documented in this encounter Progress Notes * Maged Katz MD - 08/18/2024 4:03 PM EDT SUBJECTIVE: Myra Farris is a 74 year old female. Chief Complaint Patient presents with Hospital Follow-Up Medication Administration Flu and/or Pneumo Inj Hospital Follow-Up Recent Admission: Patient was recently admitted to [facility]. The date of discharge was 07/25/24. Discharge report receivedand reviewed. HPI: admitted for metabolic encephalopathy and possible UGIB. Was found to have UTI. No active bleed was found. Discharged about a month ago and doing fine now. Still has not restarted aspirin or eliquis. Will check labs today and if no evidence of ongoing blood loss can restart tomorrow. Medications reviewed in great detail with daughter. Patient Active Problem List Diagnosis Type 2 diabetes mellitus with hemoglobin A1c goal of less than 8.0% (HCC) Postoperative hypothyroidism Vascular dementia (HCC) History of thyroid cancer History of breast cancer Longstanding persistent atrial fibrillation (HCC) Gastroesophageal reflux disease without esophagitis Dyslipidemia Overweight (BMI 25.0-29.9) History of compression fracture of spine Senile osteoporosis Current Outpatient Medications Medication Sig Dispense Refill Acetaminophen ER 650 MG Oral Tablet Extended Release (Acetaminophen 8 Hour) Take 1 Tablet by mouth every 8 hours as needed. Atorvastatin Calcium 40 MG Oral Tablet (Lipitor) Take 1 Tablet by mouth in the morning. 30 Tablet 11 metFORMIN HCl 500 MG Oral Tablet (Glucophage) Take 2 Tablets by mouth 2 times a day with morning and evening meals. 120 Tablet 11 Metoprolol Tartrate 25 MG Oral Tablet (Lopressor) Take 1/2 Tablets by mouth in the morning and 1/2 Tablets before bedtime. 30 Tablet 11 Verapamil HCl 40 MG Oral Tablet (Isoptin) Take 1 Tablet by mouth in the morning and 1 Tablet beforebedtime. 60 Tablet 11 Sertraline HCl 25 MG Oral Tablet (Zoloft) Take 1 Tablet by mouth in the morning. 30 Tablet 11 GNP Vitamin B-12 1000 MCG Oral Tablet Extended Release (Cyanocobalamin ER) Take 1 Tablet by mouth in the morning. 60 Tablet 11 Vitamin D3 125 MCG (5000 UT) Oral Tablet Take 1 Tablet by mouth in the morning. 100 Tablet 11 Calcitonin ([place]) 200 UNIT/ACT Nasal Solution (Fortical) Administer 1 [place] into one nostril in the morning. alternate nostrils.. 3.7 mL 11 Nystatin 268964 UNIT/GM External Powder (Nystop) Apply topically to affected area 3 times a day. Apply to skin fold under stomach 30 g 0 Pantoprazole Sodium 40 MG Oral Tablet Delayed Release (Protonix) Take 1 Tablet by mouth in the morning and 1 Tablet before bedtime. 60 Tablet 3 Levothyroxine Sodium 150 MCG Oral Tablet (Levoxyl) Take 1 Tablet by mouth daily first thing in the morning. (at least 30 min prior to breakfast or other meds) 30 Tablet 3 Ferrous Sulfate 325 (65 Fe) MG Oral Tablet (Feosol) Take 1 Tablet by mouth in the morning and 1 Tablet before bedtime. 60 Tablet 3 Magnesium Chloride 64 MG Oral Tablet Delayed Release (Mag-64) Take 1 Tablet by mouth in the morningand 1 Tablet before bedtime. 60 Tablet 3 oxyCODONE HCl 5 MG Oral Tablet (Oxy IR) Take 1 Tablet by mouth every 8 hours as needed for Pain, Severe. 60 Tablet 0 Apixaban 5 MG Oral Tablet (Eliquis) Take 1 Tablet by mouth in the morning and 1 Tablet before bedtime. (Patient not taking: Reported on 07/27/2024) 60 Tablet 11 Aspirin 81 MG Oral Tablet Delayed Release (SB Low Dose ASA EC) Take 1 Tablet by mouth in the morning. (Patient not taking: Reported on 07/27/2024) 100 Tablet 11 OneTouch Verio In Vitro Strip (Glucose Blood) Use up to 4 times a day E11.9 100 Strip 11 Ozempic (1 MG/DOSE) 4 MG/3ML Subcutaneous Solution Pen-injector (Semaglutide (1 MG/DOSE)) Inject 1 mg under the skin once a week. 3 mL 11 Alendronate Sodium 70 MG Oral Tablet (Fosamax) Take 1 Tablet by mouth once a week. with 8 oz. water30 minutes before first meal of the day. Remain upright for 30 min after taking tablet (Patient nottaking: Reported on 07/27/2024) 4 Tablet 11 No current facility-administered medications for this visit. Current and discharge medications have been reconciled. Review of patient's allergies indicates: Allergen Reactions Penicillins Hives Sulfa Antibiotics Nausea/vomiting OBJECTIVE: BP 124/68 | Pulse 72 | Temp 36.6 C (97.8 F) (Tympanic) | Resp 18 | Ht 1.6 m (5' 3") | Wt 68.5 kg (151 lb) | BMI 26.75 kg/m | BSA 1.74 m Review Of Systems: PHYSICAL EXAM: General: alert, healthy, and no distress Neck: supple, no adenopathy, no bruits, thyroid normal size, non-tender, without nodularity Heart: regular rate & rhythm, no murmur, and no gallops Lungs: chest symmetric with normal AP diameter, no chest deformities noted, no chest wall tenderness, lungs clear to auscultation Abdomen: abdomen soft, non-tender, normal bowel sounds, and no masses or organomegaly ASSESSMENT: Hospital discharge follow-up (Primary) - DISCH MED RECON CUR MED LIS Type 2 diabetes mellitus with hemoglobin A1c goal of less than 8.0% (HCC) - HEMOGLOBIN A1C; Future; Expected date: 08/18/2024 Postoperative hypothyroidism Longstanding persistent atrial fibrillation (HCC) - CBC WITH WBC DIFFERENTIAL AND ANEMIA REFLEX WORKUP; Future; Expected date: 08/18/2024 Overweight (BMI 25.0-29.9) History of thyroid cancer History of breast cancer Need for prophylactic vaccination and inoculation against influenza - INFLUENZA VAC., TRIVALENT, HD, PF, 65 AND ABOVE, 0.5 ML IM (FLUZONE HD) 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 PLAN: Continue present medication(s): Follow up as needed. I spent a total of 20-29 minutes (exact time 21 mins) minutes on the date of service in preparation, delivery, and documentation of the care provided to Myra Farris excluding any time spent in performance of separately billed services. Maged Katz MD * Juliette Bergeron LPN - 08/18/2024 3:43 PM EDT PRE - ADMINISTRATION DOCUMENTATION Are you experiencing any cold symptoms or fever? No Have you had Guillain-[place] Syndrome (an illness that causes paralysis) within the last 6 weeks? No Have you had the flu shot in the past? YES Have you ever had a reaction to the flu shot? No Juliette Bergeron LPN, 08/18/2024 3:44 PM Immunization Administration Documentation Time Out Procedure Performed: Yes Patient Identified (Ask Name/Date of ): Yes Does the patient have a fever greater than 101 degrees today? No Patient allergic to latex? No VFC Stock: No Immunization(s) verified: Yes, Immunization Name: Flu, VIS Sheet(s) given: Yes Verified Side and Site: Yes Verified Shot(s) with Parent(s)/Patient: Yes Hemoglobin a1c ordered today. Provider aware. Juliette Bergeron LPN documented in this encounter Plan of Treatment Upcoming Encounters Date Type Department Care Team (Late st Contact Info) Description 09/27/2024 10:00 AM EST Office Visit Cardiology, [facility] [address] [place] [address] Deondre Gordillo, [address] [place] [address] 11/17/2024 3:00 PM EST Office Visit Rheumatology [address] [place] [address] Pierre Larry CRNP [address] [place] [address] Health Maintenance Due Date Last Done Comments Albumin/Creatinine Ratio 1968 Hepatitis C Screening 1968 Adult Wellness Visit 2015 Zoster Vaccines (3 of 3) 04/13/2024 02/17/2024, 12/03/2010 COVID-19 Vaccine ( - season) 2024 04/10/2022, 11/02/2021, 02/05/2021, Additional history exists Diabetic Foot Exam 02/16/2025 02/17/2024 HbA1c 02/16/2025 [...] D LEVEL ONCE IN A LIFETIME-USE SMARTSET# [id number] Completed 10/05/2022, 07/05/2022, 08/03/2020, Additional history exists Colonoscopy Discontinued 07/23/2024 Colorectal Cancer Screening Discontinued Influenza Vaccine [...] this encounter Medical Devices Implanted Type Area Hr Operations Advisor Device Identifier Shelf Expiration Date Model / Serial / Lot Olecranon Plate Implanted:Qty: 1 on 01/02/2024 by Zachary Reese DO at [facility] Left: Elbow [id number] / / Screw Bn T10 [address]t [address] Lk 3.5x18mm - [id number] Implanted:Qty: 2 on 01/02/2024 by Zachary Reese DO at [facility] Left: Elbow ADILIA : ORTHOPAEDICS [id number] / / Screw Bn T10 Ft [address] Lk 3.5x20mm - [id number] Implanted:Qty: 1 on 01/02/2024 by Zachary Reese DO at [facility] Left: Elbow ADILIA : ORTHOPAEDICS [id number] / / Screw Cortical 3.5x20 - [id number] Implanted:Qty: 1 on 01/02/2024 by Zachray Reese DO at [facility] Left: Elbow ADILIA : ORTHOPAEDICS [id number] / / Screw Bn T10 Ft [address] Lk 3.5x50mm - [id number] Implanted:Qty: 1 on 01/02/2024 by Zachary Reese DO at [facility] Left: Elbow ADILIA : ORTHOPAEDICS [id number] / / documented as of this encounter Results * HEMOGLOBIN A1C (08/18/2024 4:23 PM EDT) [facility] Hemoglobin A1C 4.9 4.0 - 5.6 % 08/19/2024 12:34 AM EDT LABORATORY [facility] Comment:The use of HbA1c to monitor glycemic status is based on normal hemoglobin and HbA composition. This test should not be used in patients with abnormal hemoglobin that affects the half life of the red blood cell or the in vivo glycation rates. Estimated Average Glucose 94 <126 mg/dL 08/19/2024 12:34 AM EDT [facility] Blood Venous blood specimen / Unknown Venipuncture / Unknown 08/18/2024 4:23 PM EDT 08/18/2024 4:23 PM EDT Maged Katz MD LAB BLOOD ORDERAB LES [facility] [address] [facility] [place] [address] documented in this encounter Visit Diagnoses Diagnosis Hospital discharge follow-up- Primary Other follow-up examination Type 2 diabetes mellitus with hemoglobin A1c goal of less than 8.0% (HCC) Postoperative hypothyroidism Postsurgical hypothyroidism Longstanding persistent atrial fibrillation (HCC) Overweight (BMI 25.0-29.9) Overweight History of thyroid cancer Personal history of malignant neoplasm of thyroid History of breast cancer Personal history of malignant neoplasm of breast Need for prophylactic vaccination and inoculation against influenza 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 Question Answer Comments Discussion of Advance Direct sil occurred with: Not Discussed due to patient's condition Care Teams House Worker Relationship Specialty Start Date End Date Maged Katz MD [address] [facility] [place] [address] PCP - General Family Medicine 03/26/24 documented as of this encounter
--- OUTSIDE RECORDS SUMMARY | 2024-09-26 17:28 | External Medical Summary | Summary of Care ---
Author Name Unknown Organization [facility] Address [address] [place] [address] Phone [phone] Care Team Providers Care Wildlife Technician Name Role Phone Maged Katz MD Primary Care Provider [phone] Reason for Visit * Reason Onset Date Comments Advice 08/19/2024 Encounter Details Date Type Department Care Team (Late st Contact Info) Description 08/19/2024 Telephone Family Practice [facility] [address] [place] [address] Maged Katz MD [address] [place] [address] Advice Allergies Active Allergy Reactions Criticality Noted Date Comments Penicillins Hives 12/17/2023 Sulfa Antibiotics Nausea/vomiting 02/04/2024 documented as of this encounter (statuses as of 08/20/2024) Medications Medication Sig Dispensed Refills Start Date End Date Status Acetaminophen ER 650 MG Oral Tablet Extended Release (Acetaminophen 8 Hour) Take 1 Tablet by mouth every 8 hours as needed. Active Apixaban 5 MG Oral Tablet (Eliquis) Take 1 Tablet by mouth in the morning and 1 Tablet before bedtime. 60 Tablet 11 02/17/2024 Active Additional Information Patient not taking.Reported on 07/27/2024 Atorvastatin Calcium 40 MG Oral Tablet (Lipitor) Take 1 Tablet by mouth in the morning. 30 Tablet 11 02/17/2024 Active metFORMIN HCl 500 MG Oral [...] day E11.9 100 Strip 05/26/2024 Active Calcitonin ([place]) 200 UNIT/ACT Nasal Solution (Fortical)Indicatio ns:History of compression fracture of spine Administer 1 [place] into one nostril in the morning. alternate nostrils.. 3.7 mL 06/22/2024 Active Ozempic (1 MG/DOSE) 4 MG/3ML Subcutaneous Solution Pen-injector (Semaglutide (1 MG/DOSE)) Inject 1 mg under the skin once a week. 3 mL 07/02/2024 Active Alendronate Sodium 70 MG Oral Tablet (Fosamax)Indication s:Senile osteoporosis Take 1 Tablet by mouth once a week. with 8 oz. water 30 minutes before first meal of the day. Remain upright for 30 min after taking tablet 4 Tablet 07/14/2024 Active Additional Information Patient not taking.Reported on 07/27/2024 Nystatin 486279 UNIT/GM External Powder (Nystop) Apply topically to affected area 3 times a day. Apply to skin fold under stomach 30 g 08/03/2024 Active Pantoprazole Sodium 40 MG Oral Tablet Delayed Release (Protonix)Indicatio ns:Postoperative hypothyroidism,[place] roesophageal reflux disease without esophagitis Take 1 Tablet by mouth in the morning and 1 Tablet before bedtime. 60 Tablet 3 08/03/2024 Active Levothyroxine Sodium 150 MCG Oral Tablet (Levoxyl)Indication s:Postoperative hypothyroidism,[place]o roesophageal reflux disease without esophagitis Take 1 Tablet by mouth daily first thing in the morning. (at least 30 min prior to breakfast or other meds) 30 Tablet 3 08/03/2024 Active Ferrous Sulfate 325 (65 Fe) MG Oral Tablet (Feosol)Indications :Postoperative hypothyroidism,[place]o roesophageal reflux disease without esophagitis Take 1 Tablet by mouth in the morning and 1 Tablet before bedtime. 60 Tablet 3 08/03/2024 Active Magnesium Chloride 64 MG Oral Tablet Delayed Release (Mag-64)Indications :Postoperative hypothyroidism,[place]o roesophageal reflux disease without esophagitis Take 1 Tablet by mouth in the morning and 1 Tablet before bedtime. 60 Tablet 3 08/03/2024 Active oxyCODONE HCl 5 MG Oral Tablet (Oxy IR)Indications:Hist ory of compression fracture of spine Take 1 Tablet by mouth every 8 hours as needed for Pain, Severe. 60 Tablet 08/18/2024 Active documented as of this encounter (statuses as of 08/20/2024) Active Problems Problem Noted Date Diagnosed Date [...] as of this encounter (statuses as of 08/20/2024) Resolved Problems Problem Noted Date Diagnosed Date Resolved Date Pure hypercholesterolemia 12/30/2023 Pre-operative general physical examination 12/30/2023 03/25/2024 Olecranon fracture, left, cl osed, with routine healing, subsequent encounter 12/23/2023 Overview: Changed initial encounter to subsequent 01/15/24 [facility] documented as of this encounter (statuses as of 08/20/2024) Immunizations Name Administration Dates Next Due COVID-19 [...] No 07/27/2024 Does the household have a [place] service unitlar source of income? (Household - for ages [...] encounter Miscellaneous Notes * Telephone Encounter - Ale Membreno LPN - 08/20/2024 9:56 AM EDT Patient aware and verbalized understanding * Telephone Encounter - Maged Katz MD - 08/20/2024 9:10 AM EDT Yes * Telephone Encounter - Ale Membreno LPN - 08/19/2024 12:52 PM EDT Patient's daughter aware and verbalized understanding She inquiring if she is to restart fosamax too? * Telephone Encounter - Maged Katz MD - 08/19/2024 10:59 AM EDT Okay to restart asa/eliquis documented in this encounter Plan of Treatment Upcoming Encounters Date Type Department Care Team (Late st Contact Info) Description 09/27/2024 10:00 AM EST Office Visit Cardiology, [facility] [address] [place] [address] Deondre Gordillo, [address] [place] [address] 11/17/2024 3:00 PM EST Office Visit Rheumatology [place] [address] [place] [address] Pierre Larry CRNP [address] [place] [address] Health Maintenance Due Date Last Done Comments [...] D LEVEL ONCE IN A LIFETIME-USE SMARTSET# [id number] Completed 10/05/2022, 07/05/2022, 08/03/2020, Additional history exists [...] this encounter Medical Devices Implanted Type Area Revenue Inspector Device Identifier Shelf Expiration Date Model / Serial / Lot Olecranon Plate Implanted:Qty: 1 on 01/02/2024 by Zachary Reese DO at [facility] Left: Elbow [id number] / / Screw Bn T10 Ft St Lk 3.5x18mm - [id number] Implanted:Qty: 2 on 01/02/2024 by Zachary Reese DO at [facility] Left: Elbow ADILIA : ORTHOPAEDICS [id number] / / Screw Bn T10 Ft St Lk 3.5x20mm - [id number] Implanted:Qty: 1 on 01/02/2024 by Hugh, Zachary Rex [place], DO at [facility] Left: Elbow ADILIA : ORTHOPAEDICS [id number] / / Screw Cortical 3.5x20 - [id number] Implanted:Qty: 1 on 01/02/2024 by Zachary Reese DO at [facility] Left: Elbow ADILIA : ORTHOPAEDICS [id number] / / Screw Bn T10 [address] Lk 3.5x50mm - [id number] Implanted:Qty: 1 on 01/02/2024 by Zachary Reese DO at [facility] Left: Elbow ADILIA : ORTHOPAEDICS [id number] / / documented as of this encounter Advance Directives * Full Code (Latest Code Status on File) Date Activated Date Inactivated Comments 01/02/2024 11:34 AM 01/02/2024 5:05 PM This order reflects the patients wishes and were consensually agreed upon. Question Answer Comments Discussion of Advance Direct sil occurred with: Not Discussed due to patient's condition Care Teams Wildlife Technician Relationship Specialty Start Date End Date Maged Katz MD [address] [place] [address] PCP - General Family Medicine 03/26/24 documented as of this encounter
--- OUTSIDE RECORDS SUMMARY | 2024-09-26 17:28 | External Medical Summary | Summary of Care ---
Author Name Unknown Organization [facility] Address [address] [place] [address] Phone [phone] Care Team Providers Care Human Resources Mgr Name Role Phone Maged Katz MD Primary Care Provider [phone] Reason for Visit * Reason Comments Outpatient Testing Encounter Details Date Type Department Care Team (Late st Contact Info) Description 08/18/2024 4:20 PM EDT Laboratory Laboratory, [facility] [address] [place] [address] [facility] [address] [place] [address] Type 2 diabetes mellitus with hemoglobin A1c goal of less than 8.0% (HCC); Longstanding persistent atrial fibrillation (HCC) Allergies Active Allergy Reactions Criticality Noted Date Comments Penicillins Hives 12/17/2023 Sulfa Antibiotics Nausea/vomiting 02/04/2024 documented as of this encounter (statuses as of 08/18/2024) Medications Medication Sig Dispensed Refills Start Date [...] day E11.9 100 Strip 05/26/2024 Active Calcitonin ([place]) 200 UNIT/ACT Nasal Solution (Fortical)Indicatio ns:History of compression fracture of spine Administer 1 [place] into one nostril in the morning. alternate [...] Information Patient not taking.Reported on 07/27/2024 Nystatin 791498 UNIT/GM External Powder (Nystop) Apply topically to [...] as of this encounter (statuses as of 08/18/2024) Active Problems Problem Noted Date Diagnosed Date [...] as of this encounter (statuses as of 08/18/2024) Resolved Problems Problem Noted Date Diagnosed Date Resolved Date Pure hypercholesterolemia 12/30/2023 Pre-operative general physical examination 12/30/2023 03/25/2024 Olecranon fracture, left, cl osed, with routine healing, subsequent encounter 12/23/2023 Overview: Changed initial encounter to subsequent 01/15/24 HL documented as of this encounter (statuses as of 08/18/2024) Immunizations Name Administration Dates Next Due COVID-19 [...] 10:00 AM EST Office Visit Cardiology, [facility] [address] [place] [address] Deondre Gordillo O, DO [address] [place] [address] 11/17/2024 3:00 PM EST Office Visit Rheumatology [facility] [address] [facility] [place], [place] [address] Pierre Larry CRNP [address] [facility] [place] [address] Pending Results Name Type Priority Associated Diagnoses Date /Time HEMOGLOBIN A1C Lab Routine Type 2 diabetes mellitus with hemoglobin A1c goal of less than 8.0% ([facility]) 08/18/2024 4:23 PM EDT CBC WITH WBC DIFFERENTIAL AND ANEMIA REFLEX WORKUP Lab Routine Longstanding persistent atrial fibrillation ([facility]) 08/18/2024 4:23 PM EDT ANEMIA CBC Lab Routine Longstanding persistent atrial fibrillation ([facility]) 08/18/2024 4:23 PM EDT DIFFERENTIAL, AUTOMATED Lab Routine Longstanding persistent atrial fibrillation ([facility]) 08/18/2024 4:23 PM EDT ANEMIA REFLEX CHEMISTRY HOLD Lab Routine Longstanding persistent atrial fibrillation ([facility]) 08/18/2024 4:23 PM EDT Health Maintenance Due Date Last Done Comments Albumin/Creatinine Ratio 1968 Hepatitis C Screening 1968 Adult Wellness Visit 2015 Zoster Vaccines (3 of 3) 04/13/2024 02/17/2024, 1203/2010 COVID-19 Vaccine ( season) 2024 04/10/2022, 11/02/2021, 02/05/2021, Additional history exists HbA1c 07/01/2024 12/30/2023, 07/20, 03/25/2023, Additional history exists GFR 12/29/2024 12/30/2023 TSH 12/29/2024 12/30/2023 Diabetic Foot Exam 02/16/2025 02/17/2024 Diabetic Eye Exam 03/23/2025 03/23/2024, , 02/17/2024 Depression Screening 07/27/2025 07/27/2024 DXA Scan 07/07/2026 07/07/2024, 06/20, 03/05/2021, Additional history exists DTap/Tdap Vaccines (2 - Td or Tdap) 02/16/2034 02/17/2024 Pneumococcal Vaccine: 65+ Years Completed 02/08/2019, 2015, 08/24/2013 VITAMIN D LEVEL ONCE IN A LIFETIME-USE SMARTSET# [id number] Completed 10/05/2022, 07/05/2022, 08/03/2020, Additional history exists [...] this encounter Medical Devices Implanted Type Area Marketing Admin Device Identifier Shelf Expiration Date Model / Serial / Lot Olecranon Plate Implanted:Qty: 1 on 01/02/2024 by Zachary Reese DO at [facility] Left: Elbow [id number] / / Screw Bn T10 Ft St Lk 3.5x18mm - [id number] Implanted:Qty: 2 on 01/02/2024 by Zachary Reese DO at [facility] Left: Elbow ADILIA : ORTHOPAEDICS [id number] / / Screw Bn T10 Ft St Lk 3.5x20mm - [id number] Implanted:Qty: 1 on 01/02/2024 by Zachary Reese DO at [facility] Left: Elbow ADILIA : ORTHOPAEDICS [id number] / / Screw Cortical 3.5x20 - [id number] Implanted:Qty: 1 on 01/02/2024 by Zachary Reese DO at [facility] Left: Elbow ADILIA : ORTHOPAEDICS [id number] / / Screw Bn T10 Ft St Lk 3.5x50mm - [id number] Implanted:Qty: 1 on 01/02/2024 by Zachary Reese DO at [facility] Left: Elbow ADILIA : ORTHOPAEDICS [id number] / / documented as of this encounter [...] Discussed due to patient's condition Care Teams Human Resources Mgr Relationship Specialty Start Date End Date Maged Katz MD [address] [place] [address] PCP - General Family Medicine 03/26/24 documented as of this encounter
--- OUTSIDE RECORDS SUMMARY | 2024-09-26 17:28 | External Medical Summary | Summary of Care ---
Author Name Unknown Organization [facility] Address [address] [place] [address] Phone [phone] Care Team Providers Care Complaint Manager Name Role Phone Maged Katz MD Primary Care Provider [phone] Reason for Visit * Reason Comments Acute Pt here for bilatera l lower extreme edema since Friday. Pt reports that the right is weeping also since Friday. Pt states that pressing on the legs is painful. Encounter Details Date Type Department Care Team (Latest Contact Info) Description 08/30/2024 2:40 PM EST Office Visit Family [facility] [address] [facility] [place] [address] Michael Joseph MD [address] [facility] [place] [address] Bilateral lower extremity edema*; Cellulitis of right lower extremity; Senile osteoporosis; Chronic diastolic congestive heart failure (HCC); Type 2 diabetes mellitus with diabetic peripheral angiopathy without gangrene, unspecified whether remote computer terminal operator insulin use (HCC); Postsurgical hypothyroidism Allergies Active Allergy Reactions Criticality Noted Date Comments Penicillins Hives 12/17/2023 Sulfa Antibiotics Nausea/vomiting Medium 02/04/2024 SEVERE NAUSEA documented as of this encounter (statuses as of 08/30/2024) Medications Acetaminophen ER 650 MG Oral Tablet Extended Release (Acetaminophen 8 Hour) Take 1 Tablet by mouth every 8 hours as needed. Active Apixaban 5 MG Oral Tablet (Eliquis) Take 1 Tablet by mouth in the morning and 1 Tablet before bedtime. 60 Tablet 11 08/06/2024 3:03 PM EDT 4 Active Atorvastatin Calcium 40 MG Oral Tablet [...] mouth in the morning. 100 Tablet 11 04/19/2024 1:24 PM EDT 4 Active GNP [...] times a day E11.9 100 Strip 11 4 Active Calcitonin ([place]) 200 UNIT/ACT Nasal Solution (Fortical)Indica tions:History of compression fracture of spine Administer 1 [place] into one nostril in the morning. alternate [...] 30 min after taking tablet 4 Tablet 4 Active Additional Information Patient not taking.Reported on 08/30/2024 Nystatin 127361 UNIT/GM External Powder (Nystop) Apply topically to [...] Severe. 60 Tablet 08/18/2024 4:29 PM EDT Active Lidocaine 5 % External Patch (Lidoderm) Place 1 Patch topically on the skin daily as needed for Pain. Active Mupirocin 2 % External Ointment (Bactroban) [...] as of this encounter (statuses as of 08/30/2024) Active Problems Problem Noted Date Diagnosed Date [...] as of this encounter (statuses as of 08/30/2024) Resolved Problems Problem Noted Date Diagnosed Date Resolved Date Pure hypercholesterolemia 12/30/2023 Pre-operative general physical examination 12/30/2023 03/25/2024 Olecranon fracture, left, cl osed, with routine healing, subsequent encounter 12/23/2023 Overview (01/15/2024): Changed initial encounter to subsequent 01/15/24 HL documented as of this encounter (statuses as of 08/30/2024) Immunizations Name Administration Dates Next Due COVID-19 [...] Date Smoking Tobacco: Never Smokeless Tobacco: Never Tobacco Cessation:Counseling Given: Not Answered Alcohol Use Standard Drinks/Week Comments Never 0 [...] PM EDT documented as of this encounter Last Filed Vital Signs Vital Sign Reading Time Taken Comments Blood Pressure 136/52 08/30/2024 2:52 PM EST Pulse 67 08/30/2024 2:52 PM EST Temperature 36.2 C (97.2 F) 08/30/2024 2:52 PM ES T Respiratory Rate 16 08/30/2024 2:52 PM EST Oxygen Saturation 97% 08/30/2024 2:52 PM EST Inhaled Oxygen Concentration - - Weight 72.3 kg (159 lb 6.4 oz) 08/30/2024 2:52 P M EST Height 160 cm (5' 3") 08/30/2024 2:52 PM EST Body Mass Index 28.24 08/30/2024 2:52 PM EST documented in this encounter Progress Notes * Michael Joseph MD - 08/30/2024 3:21 PM EST Images from the original note were not included. History of Present Illness Myra Farris is a 74 year old female that presents for Acute (Pt here for bilateral lower extremeedema since Friday. Pt reports that the right is weeping also since Friday. Pt states that pressingon the legs is painful.) Physical Exam BP 136/52 (BP Site: Left Arm, BP Position: Sitting, BP Cuff Size: Regular) | Pulse 67 | Temp 36.2 C (97.2 F) (Tympanic) | Resp 16 | Ht 1.6 m (5' 3") | Wt 72.3 kg (159 lb 6.4 oz) | SpO2 97% | BMI 28.24 kg/m | BSA 1.79 m AAOx3 Normal affect NCAT/ Neck supple Throat clear RRR Lungs CTABL Ext warm and well perfused No gross neuro deficits Form b/l LE edema, 3+ pitting to knee Right anterior foreleg with 4 scratches/abrasions with mild drainage, erythematous Slow gait, slow to stand from seated position I have reviewed most recent labs CMP, TSH, CBC, and B12 Assessment and Plan Bilateral lower extremity edema - acute on chronic Cellulitis of right lower extremity - will treat - topical ointment and PO keflex Senile osteoporosis - underlying Chronic diastolic congestive heart failure (HCC) - acute on chronic. Discussed foods to avoid. Hold the verapamil for now. Increase protein in food and decrease salt intake. elevate Type 2 diabetes mellitus with diabetic peripheral angiopathy without gangrene, unspecified whether remote computer terminal operator insulin use (HCC) - same Postsurgical hypothyroidism - same Wrap-Up Follow Up: Return if symptoms worsen or fail to improve, for Return with Physician if edema worsening or not improving with changes . | For: Return with Physician if edema worsening or not improving with changes Time: I spent a total of 30-39 minutes (exact time 32 mins) on the date of service in preparation, delivery, and documentation of the care provided to Myra Farris excluding any time spent in the performance of separately billed services. documented in this encounter Plan of Treatment Upcoming Encounters Date Type Department Care Team (Late st Contact Info) Description 09/27/2024 10:00 AM EST Office Visit Cardiology, [facility] [address] [place] [address] Deondre Gordillo, [address] [place] [address] 11/17/2024 3:00 PM EST Office Visit Rheumatology [facility] [address] [place] [address] Pierre Larry CRNP [address] [place] [address] Health Maintenance Due Date Last Done Comments [...] D LEVEL ONCE IN A LIFETIME-USE SMARTSET# [id number] Completed 10/05/2022, 07/05/2022, 08/03/2020, Additional history exists [...] this encounter Medical Devices Implanted Type Area Child Development Instructor Device Identifier Shelf Expiration Date Model / Serial / Lot Olecranon Plate Implanted:Qty: 1 on 01/02/2024 by Zachary Reese DO at [facility] Left: Elbow [id number] / / Screw Bn T10 Ft St Lk 3.5x18mm - [id number] Implanted:Qty: 2 on 01/02/2024 by Zachary Reese DO at [facility] Left: Elbow ADILIA : ORTHOPAEDICS [id number] / / Screw Bn T10 Ft St Lk 3.5x20mm - [id number] Implanted:Qty: 1 on 01/02/2024 by Zachary Reese DO at [facility] Left: Elbow ADILIA : ORTHOPAEDICS [id number] / / Screw Cortical 3.5x20 - [id number] Implanted:Qty: 1 on 01/02/2024 by Zachary Reese DO at [facility] Left: Elbow ADILIA : ORTHOPAEDICS [id number] / / Screw Bn T10 [address] Lk 3.5x50mm - [id number] Implanted:Qty: 1 on 01/02/2024 by Zachary Reese DO at [facility] Left: Elbow ADILIA : ORTHOPAEDICS [id number] / / documented as of this encounter Visit Diagnoses Diagnosis Bilateral lower extremity edema- Primary Edema Cellulitis of right lower extremity Cellulitis and abscess of leg, except foot Senile osteoporosis Chronic diastolic congestive heart failure (HCC) Chronic diastolic heart failure Type 2 diabetes mellitus with diabetic peripheral angiopathy without gangrene, unspecified whether intermediate insulin use (HCC) Postsurgical hypothyroidism documented in this encounter Advance Directives * Full Code (Latest Code Status on File) Date Activated Date Inactivated Comments 01/02/2024 11:34 AM 01/02/2024 5:05 PM This order reflects the patients wishes and were consensually agreed upon. Question Answer Comments Discussion of Advance Direct sil occurred with: Not Discussed due to patient's condition Care Teams Complaint Manager Relationship Specialty Start Date End Date Maged Katz MD [address] [facility] [place] [address] PCP - General Family Medicine 03/26/24 documented as of this encounter
--- OUTSIDE RECORDS SUMMARY | 2024-09-26 17:28 | External Medical Summary | Summary of Care ---
Author Name Unknown Organization [facility] Address [address] [place] [address] Phone [phone] Care Team Providers Care Consumer Studies Professor Name Role Phone Maged Katz MD Primary Care Provider [phone] Reason for Visit * Reason Onset Date Comments Referral 06/07/2024 Encounter Details Date Type Department Care Team (Late st Contact Info) Description 06/07/2024 Telephone Family Practice [facility] [address] [place] [address] Maged Katz MD [address] [place] [address] Referral Allergies Active Allergy Reactions Criticality Noted Date Comments Penicillins Hives 12/17/2023 Sulfa Antibiotics Nausea/vomiting Medium 02/04/2024 SEVERE NAUSEA documented as of this encounter (statuses as of 09/06/2024) Medications Acetaminophen ER 650 MG Oral Tablet Extended Release (Acetaminophen 8 Hour) Take 1 Tablet by mouth every 8 hours as needed. Active Apixaban 5 MG Oral Tablet (Eliquis) Take 1 Tablet by mouth in the morning and 1 Tablet before bedtime. 60 Tablet 11 09/06/2024 3:28 PM EST Active Atorvastatin Calcium 40 MG Oral Tablet (Lipitor) Take 1 Tablet by mouth in the morning. 30 Tablet 11 09/06/2024 3:28 PM EST 4 Active metFORMIN HCl 500 MG Oral Tablet (Glucophage) Take 2 Tablets by mouth 2 times a day with morning and evening meals. 120 Tablet 11 09/06/2024 3:28 PM EST 4 Active Metoprolol Tartrate 25 MG Oral Tablet (Lopressor) Take 1/2 Tablets by mouth in the morning and 1/2 Tablets before bedtime. 30 Tablet 11 09/06/2024 3:28 PM EST 4 Active Verapamil HCl 40 MG Oral Tablet (Isoptin) Take 1 Tablet by mouth in the morning and 1 Tablet before bedtime. 60 Tablet 11 09/06/2024 3:28 PM EST 4 Active Additional Information Patient not taking.Reported on 09/02/2024 Sertraline HCl 25 MG Oral Tablet (Zoloft) Take 1 Tablet by mouth in the morning. 30 Tablet 11 09/06/2024 3:28 PM EST 4 Active Aspirin 81 MG Oral Tablet Delayed Release (SB Low Dose ASA EC) Take 1 Tablet by mouth in the morning. 100 Tablet 11 09/06/2024 3:28 PM EST 4 Active GNP Vitamin B-12 1000 MCG Oral Tablet Extended Release (Cyanocobalamin ER) Take 1 Tablet by mouth in the morning. 60 Tablet 11 07/13/2024 1:48 PM EDT 4 Active Vitamin D3 125 MCG (5000 UT) Oral Tablet Take 1 Tablet by mouth in the morning. 100 Tablet 11 09/06/2024 3:28 PM EST 4 Active Felicityuch Gela In Vitro Strip (Glucose Blood) Use up to 4 times a day E11.9 100 Strip 11 4 Active documented as of this encounter (statuses as of 09/06/2024) Active Problems Problem Noted Date Diagnosed Date [...] as of this encounter (statuses as of 09/06/2024) Resolved Problems Problem Noted Date Diagnosed Date Resolved Date Pure hypercholesterolemia 12/30/2023 Pre-operative general physical examination 12/30/2023 03/25/2024 Olecranon fracture, left, cl osed, with routine healing, subsequent encounter 12/23/2023 Overview (01/15/2024): Changed initial encounter to subsequent 01/15/24 HL documented as of this encounter (statuses as of 09/06/2024) Immunizations Name Administration Dates Next Due COVID-19 mRNA, LNP-s, No Pre serve, 2-Dose Series (Moderna) 04/10/2022,11/02/2021 COVID-19 mRNA, LNP-s, No Pre serve, 2-Dose Series (Pfizer) 02/05/2021,01/15/2021 Pneumococcal Conjugate Vacc, 13 Valent (Prevnar) 2015 Pneumococcal Polysaccharide PPV23 (Pneumovax) 02/08/2019,08/24/2013 Seasonal Influenza Vac., MDV , IM, 0.5 mL (Fluzone) 08/04/2018 Seasonal Influenza Virus Vac cine, Unspecified Formulation 07/22/2023,06/26/2022,07/09/2021,07/20,06/30/2017,07/03/2015,07/27/2014 ,07/14/2013,06/30/2012,08/07/2011,06/20,09/23/2009,08/02/2008 TDAP (age 10 and older)(Boostrix) 02/17/2024 Varicella [...] encounter Miscellaneous Notes * Telephone Encounter - Ani Cordova OSA - 06/07/2024 9:13 AM EDT Has the patient been seen for this problem? (Y/N)?: If No, an appt needs to be scheduled before a referral will be placed (exception: proceed with referral request if referral request is for a yearly routine appointment with speciality) Patient Name: Myra Farris Patient Primary care provider: Maged Katz MD Does this need to be an insurance referral (Y/N)?: yes If Yes, does the insurance referral need to be placed into the [employer] system? Name of preferred specialist: nicholas Type of specialist: physical therapy Location of specialist: [facility]'s Phone #: unknown Specialist's Fax #: [phone] Reason for visit: back concerns Date of visit: tbd 3rd time pt has hurt her back, asking if theres any scans pt should do since this is happening overand over. Family feels she's back at [place] [address] for her back documented in this encounter Plan of Treatment Upcoming Encounters Date Type Department Care Team (Late st Contact Info) Description 09/27/2024 10:00 AM EST Office Visit Cardiology, [facility] [address] [place] [address] Deondre Gordillo, DO [address] [place] [address] 11/17/2024 3:00 PM EST Office Visit Rheumatology [facility] [address] [place] [address] Pierre Larry CRNP [address] [place] [address] Health Maintenance Due Date Last Done Comments [...] D LEVEL ONCE IN A LIFETIME-USE SMARTSET# [id number] Completed 10/05/2022, 07/05/2022, 08/03/2020, Additional history exists [...] this encounter Medical Devices Implanted Type Area Soil Expert Device Identifier Shelf Expiration Date Model / Serial / Lot Olecranon Plate Implanted:Qty: 1 on 01/02/2024 by Zachary Reese, at OR [facility] Left: Elbow [id number] / / Screw Bn T10 Ft St Lk 3.5x18mm - [id number] Implanted:Qty: 2 on 01/02/2024 by Zachary Reese, DO at [facility] Left: Elbow ADILIA : ORTHOPAEDICS [id number] / / Screw Bn T10 Ft St Lk 3.5x20mm - [id number] Implanted:Qty: 1 on 01/02/2024 by Zachary Reese, DO at [facility] Left: Elbow ADILIA : ORTHOPAEDICS [id number] / / Screw Cortical 3.5x20 - [id number] Implanted:Qty: 1 on 01/02/2024 by Zachary Reese, DO at [facility] Left: Elbow ADILIA : ORTHOPAEDICS [id number] / / Screw Bn T10 [address] Lk 3.5x50mm - [id number] Implanted:Qty: 1 on 01/02/2024 by Zachary Reese, DO at [facility] Left: Elbow ADILIA : ORTHOPAEDICS [id number] / / documented as of this encounter Advance Directives * Full Code (Latest Code Status on File) Date Activated Date Inactivated Comments 01/02/2024 11:34 AM 01/02/2024 5:05 PM This order reflects the patients wishes and were consensually agreed upon. Question Answer Comments Discussion of Advance Direct sil occurred with: Not Discussed due to patient's condition Care Teams Consumer Studies Professor Relationship Specialty Start Date End Date Maged Katz MD [address] [place] [address] PCP - General Family Medicine 03/26/24 documented as of this encounter
--- OUTSIDE RECORDS SUMMARY | 2024-09-26 17:28 | External Medical Summary | Summary of Care ---
Author Name Unknown Organization [facility] Address [address] [place] [address] Phone [phone] Care Team Providers Care Link Wire Fabric Machine Tender Name Role Phone Maged Katz MD Primary Care Provider [phone] Encounter Details Date Type Department Care Team (Late st Contact Info) Description 08/26/2024 Population Health External Data Unspecified Department Allergies [...] day E11.9 100 Strip 4 Active Calcitonin ([place]) 200 UNIT/ACT Nasal Solution (Fortical)Indica tions:History of compression fracture of spine Administer 1 [place] into one nostril in the morning. alternate [...] Information Patient not taking.Reported on 08/30/2024 Nystatin 104858 UNIT/GM External Powder (Nystop) Apply topically to [...] Tablet 08/18/2024 4:29 PM EDT 4 Active documented as of this encounter [...] PM EDT documented as of this encounter Plan of Treatment Upcoming Encounters Date Type Department Care Team (Late st Contact Info) Description 09/27/2024 10:00 AM EST Office Visit Cardiology, [facility] [address] [place] [address] Deondre Gordillo DO [address] [place] [address] 11/17/2024 3:00 PM EST Office Visit Rheumatology [facility] [address] [place] [address] Pierre Larry CRNP [address] [place] [address] Health Maintenance Due Date Last Done Comments [...] D LEVEL ONCE IN A LIFETIME-USE SMARTSET# [id number] Completed 10/05/2022, 07/05/2022, 08/03/2020, Additional history exists [...] this encounter Medical Devices Implanted Type Area Shipboard Intelligence Analyst Device Identifier Shelf Expiration Date Model / Serial / Lot Olecranon Plate Implanted:Qty: 1 on 01/02/2024 by Zachary Reese, DO at [facility] Left: Elbow [id number] / / Screw Bn T10 Ft St Lk 3.5x18mm - [id number] Implanted:Qty: 2 on 01/02/2024 by Zachary Reese DO at [facility] Left: Elbow ADILIA : ORTHOPAEDICS [id number] / / Screw Bn T10 [address] Lk 3.5x20mm - [id number] Implanted:Qty: 1 on 01/02/2024 by Zachary Reese DO at [facility] Left: Elbow ADILIA : ORTHOPAEDICS [id number] / / Screw Cortical 3.5x20 - [id number] Implanted:Qty: 1 on 01/02/2024 by Zachary Reese DO at [facility] Left: Elbow ADILIA : ORTHOPAEDICS [id number] / / Screw Bn T10 [address] Lk 3.5x50mm - [id number] Implanted:Qty: 1 on 01/02/2024 by Zachary Reese DO at [facility] Left: Elbow ADILIA : ORTHOPAEDICS [id number] / / documented as of this encounter Advance Directives * Full Code (Latest Code Status on File) Date Activated Date Inactivated Comments 01/02/2024 11:34 AM 01/02/2024 5:05 PM This order reflects the patients wishes and were consensually agreed upon. Question Answer Comments Discussion of Advance Direct sil occurred with: Not Discussed due to patient's condition Care Teams Link Wire Fabric Machine Tender Relationship Specialty Start Date End Date Maged Katz MD [address] [place] [address] PCP - General Family Medicine 03/26/24 documented as of this encounter
--- OUTSIDE RECORDS SUMMARY | 2024-09-26 17:28 | External Medical Summary | Summary of Care ---
Author Name Unknown Organization [facility] Address [address] [place] [address] Phone [phone] Care Team Providers Care Geographic Information System Analyst Name Role Phone Maged Katz MD Primary Care Provider [phone] [phone] Encounter Details Date Type Department Care Team (Late st Contact Info) Description 06/01/2024 Telephone Neuropsychology Keily Fernandez [place] [address] [facility] [place] [address] Maged Terry, PhD [address] [place] [address] Allergies Active Allergy Reactions Criticality Noted Date Comments Penicillins Hives 12/17/2023 Sulfa Antibiotics Nausea/vomiting Medium 02/04/2024 SEVERE NAUSEA documented as of this encounter (statuses as of 08/31/2024) Medications Acetaminophen ER 650 MG Oral Tablet Extended Release (Acetaminophen 8 Hour) Take 1 Tablet by mouth every 8 hours as needed. Active Apixaban 5 MG Oral Tablet (Eliquis) Take 1 Tablet by mouth in the morning and 1 Tablet before bedtime. 60 Tablet 11 08/06/2024 3:03 PM EDT 02/17/2024 Active Atorvastatin Calcium 40 MG Oral Tablet (Lipitor) Take 1 Tablet by mouth in the morning. 30 Tablet 11 08/06/2024 3:03 PM EDT 02/17/2024 Active metFORMIN HCl 500 MG Oral Tablet (Glucophage) Take 2 Tablets by mouth 2 times a day with morning and evening meals. 120 Tablet 11 08/06/2024 3:03 PM EDT 02/17/2024 Active Metoprolol Tartrate 25 MG Oral Tablet (Lopressor) Take 1/2 Tablets by mouth in the morning and 1/2 Tablets before bedtime. 30 Tablet 11 08/06/2024 3:03 PM EDT 02/17/2024 Active Verapamil HCl 40 MG Oral Tablet (Isoptin) Take 1 Tablet by mouth in the morning and 1 Tablet before bedtime. 60 Tablet 11 08/06/2024 3:03 PM EDT 02/17/2024 Active Sertraline HCl 25 MG Oral Tablet (Zoloft) Take 1 Tablet by mouth in the morning. 30 Tablet 11 08/06/2024 3:03 PM EDT 02/17/2024 Active Aspirin 81 MG Oral Tablet Delayed Release (SB Low Dose ASA EC) Take 1 Tablet by mouth in the morning. 100 Tablet 11 04/19/2024 1:24 PM EDT 02/17/2024 Active GNP Vitamin B-12 1000 MCG Oral Tablet Extended Release (Cyanocobalamin ER) Take 1 Tablet by mouth in the morning. 60 Tablet 11 07/13/2024 1:48 PM EDT 02/17/2024 Active Vitamin D3 125 MCG (5000 UT) Oral Tablet Take 1 Tablet by mouth in the morning. 100 Tablet 11 05/12/2024 2:52 PM EDT 02/17/2024 Active OneTouch Verio In Vitro Strip (Glucose Blood) Use up to 4 times a day E11.9 100 Strip 11 05/26/2024 Active documented as of this encounter (statuses as of 08/31/2024) Active Problems Problem Noted Date Diagnosed Date [...] as of this encounter (statuses as of 08/31/2024) Resolved Problems Problem Noted Date Diagnosed Date Resolved Date Pure hypercholesterolemia 12/30/2023 Pre-operative general physical examination 12/30/2023 03/25/2024 Olecranon fracture, left, cl osed, with routine healing, subsequent encounter 12/23/2023 Overview (01/15/2024): Changed initial encounter to subsequent 01/15/24 HL documented as of this encounter (statuses as of 08/31/2024) Immunizations Name Administration Dates Next Due COVID-19 [...] encounter Miscellaneous Notes * Telephone Encounter - Shakira Fernandez OSA - 06/01/2024 2:10 PM EDT NEURO PSYCH TEST APPROVALS Approved as requested. Dates: 05/25/2024 - 11/28/2024 Authorization number: [id number] documented in this encounter Plan of Treatment Upcoming Encounters Date Type Department Care Team (Late st Contact Info) Description 09/27/2024 10:00 AM EST Office Visit Cardiology, [facility] [address] [place] [address] Deondre Gordillo DO [address] [place] [address] 11/17/2024 3:00 PM EST Office Visit Rheumatology [place] [id number] [place] [address] Pierre Larry CRNP [address] [place] [address] Health Maintenance Due Date Last Done Comments [...] D LEVEL ONCE IN A LIFETIME-USE SMARTSET# [id number] Completed 10/05/2022, 07/05/2022, 08/03/2020, Additional history exists [...] this encounter Medical Devices Implanted Type Area Leather Production Artisan Device Identifier Shelf Expiration Date Model / Serial / Lot Olecranon Plate Implanted:Qty: 1 on 01/02/2024 by Zachary Reese DO at [facility] Left: Elbow [id number] / / Screw Bn T10 Ft St Lk 3.5x18mm - [id number] Implanted:Qty: 2 on 01/02/2024 by Zachary Reese DO at [facility] Left: Elbow ADILIA : ORTHOPAEDICS [id number] / / Screw Bn T10 Ft St Lk 3.5x20mm - [id number] Implanted:Qty: 1 on 01/02/2024 by Zachary Reese DO at [facility] Left: Elbow ADILIA : ORTHOPAEDICS [id number] / / Screw Cortical 3.5x20 - [id number] Implanted:Qty: 1 on 01/02/2024 by Zachary Reese DO at [facility] Left: Elbow ADILIA : ORTHOPAEDICS [id number] / / Screw Bn T10 Ft St Lk 3.5x50mm - [id number] Implanted:Qty: 1 on 01/02/2024 by Zachary Reese DO at OR [facility] Left: Elbow ADILIA : ORTHOPAEDICS [id number] / / documented as of this encounter Advance Directives * Full Code (Latest Code Status on File) Date Activated Date Inactivated Comments 01/02/2024 11:34 AM 01/02/2024 5:05 PM This order reflects the patients wishes and were consensually agreed upon. Question Answer Comments Discussion of Advance Direct sil occurred with: Not Discussed due to patient's condition Care Teams Geographic Information System Analyst Relationship Specialty Start Date End Date Maged Katz MD [address] [place] [address] PCP - General Family Medicine 03/26/24 documented as of this encounter
--- OUTSIDE RECORDS SUMMARY | 2024-09-26 17:29 | External Medical Summary ---
Author Name Unknown Address Unknown Organization [id number]:[facility] [place] - [address] [place] [address] Laboratory Report Ordering Provider Test Date Status YOLANDA WATKINS 08/18/2024 16:23:30 Final Observation Date Value Abnormality Reference (Units ) Status Vitamin B12 08/18/2024 16:23:30 806 343-4600 (pg/mL) Final Performing Location [facility] - [address] [place] [address]
--- OUTSIDE RECORDS SUMMARY | 2024-09-26 17:29 | External Medical Summary ---
Author Name Unknown Address Unknown Organization [id number]:[facility] [place] [address] [facility] [place] [address] Laboratory Report Ordering Provider Test Date Status YOLANDA WATKINS 08/18/2024 16:23:30 Final Observation Date Value Abnormality Reference (Units ) Status TSH 08/18/2024 16:23:30 1.88 0.27-4.20 (uIU/mL) Final Performing Location [facility] [place] [address] [facility] [address]
--- OUTSIDE RECORDS SUMMARY | 2024-09-26 17:29 | External Medical Summary | Summary of Care ---
Author Name Unknown Organization [facility] Address [address] [place] [address] Phone [phone] Care Team Providers Care Window Tinter Name Role Phone Maged Katz MD Primary Care Provider [phone] [phone] Reason for Visit * Reason Onset Date Comments Advice 07/27/2024 When to restart eliquis and aspirin Encounter Details Date Type Department Care Team (Late st Contact Info) Description 07/27/2024 Telephone Care Coordination and Integration [address] [place], [place] [id number] Claribel Garcia RN [address] [place] [address] Advice (When to restart eliquis and aspirin) Allergies Active Allergy Reactions Criticality Noted Date Comments Penicillins Hives 12/17/2023 Sulfa Antibiotics Nausea/vomiting 02/04/2024 documented as of this encounter (statuses as of 07/27/2024) Medications Medication Sig Dispensed Refills Start Date [...] or other meds) 30 Tablet 02/17/2024 Active Additional Information Patient taking differently: 150 mcgOral [id number], (at least 30 min prior to breakfast or other meds), Reported on 07/27/2024 metFORMIN HCl 500 MG Oral Tablet (Glucophage) [...] in the morning. 30 Tablet 02/17/2024 Active Additional Information Patient taking differently:40 mg Oral Daily(AM),1 tab twice a day, Reported on 07/27/2024 Verapamil HCl 40 MG Oral Tablet (Isoptin) [...] daily with breakfast. 30 Tablet 02/17/2024 Active Additional Information Patient taking differently:325 mg Oral BREAKFAST,Taking twice a day, Reported on 07/27/2024 Vitamin D3 125 MCG (5000 UT) Oral Tablet Take 1 Tablet by mouth in the morning. 100 Tablet 02/17/2024 Active Nystatin 865593 UNIT/GM External Powder (Nystop) Apply topically to [...] Pain, Severe. 60 Tablet 06/22/2024 Active Calcitonin ([place]) 200 UNIT/ACT Nasal Solution (Fortical)Indicatio ns:History of compression fracture of spine Administer 1 [place] into one nostril in the morning. alternate nostrils.. 3 mL 06/22/2024 Active Ozempic (1 MG/DOSE) 2 MG/1.5ML Subcutaneous Solution Pen-injector (Semaglutide (1 MG/DOSE)) Inject 1 mg under the skin once a week. 2 Each 07/02/2024 Active Additional Information Patient not taking.Reported on 07/27/2024 Alendronate Sodium 70 MG Oral Tablet (Fosamax)Indication s:Senile osteoporosis Take 1 Tablet by mouth once a week. with 8 oz. water 30 minutes before first meal of the day. Remain upright for 30 min after taking tablet 5 Tablet 07/14/2024 Active Additional Information Patient not taking.Reported on 07/27/2024 Magnesium Chloride 64 MG Oral Tablet Take by mouth. 1 tab twice a day Active documented as of this encounter (statuses as of 07/27/2024) Active Problems Problem Noted Date Diagnosed Date [...] as of this encounter (statuses as of 07/27/2024) Resolved Problems Problem Noted Date Diagnosed Date Resolved Date Pure hypercholesterolemia 12/30/2023 Pre-operative general physical examination 12/30/2023 03/25/2024 Olecranon fracture, left, cl osed, with routine healing, subsequent encounter 12/23/2023 Overview: Changed initial encounter to subsequent 01/15/24 HL documented as of this encounter (statuses as of 07/27/2024) Immunizations Name Administration Dates Next Due COVID-19 [...] No 07/27/2024 Does the household have a [email or web address]]lar source of income? (Household - for ages [...] encounter Miscellaneous Notes * Telephone Encounter - Maged Katz MD - 07/27/2024 7:04 PM EDT No med changes until she sees me. We will talk about all of it at that time. * Telephone Encounter - Claribel Garcia RN - 07/27/2024 3:26 PM EDT Patient was discharged from [facility] on 07/25 following upper GI bleed. The hospital stopped her eliquisand baby aspirin because of this. Her discharge instructions tell her to restart both eliquis and aspirin on 07/29 if no recurrence of bleeding and hemoglobin is stable. Daughter Tammy is asking if she should restart both medications on 07/29 or wait until f/u with [facility] on 08/03. Does she need any labs done prior? Dr Katz, please advise. Tammy said it's OK to respond via MyG . documented in this encounter Plan of Treatment Upcoming Encounters Date Type Department Care Team (Late st Contact Info) Description 08/03/2024 3:20 PM EDT Office Visit Family Practice [facility] [address] [place] [address] Maged Katz MD [address] [place] [address] 09/27/2024 10:00 AM EST Office Visit Cardiology, [facility] [address] [place] [address] Deondre Gordillo DO [address] [place] [address] 11/17/2024 3:00 PM EST Office Visit Rheumatology [place] [address] [facility] [place] [address] Pierre Larry CRNP [facility] [place] [employer] [place] [address] Health Maintenance Due Date Last Done Comments Albumin/Creatinine Ratio 1968 Hepatitis C Screening 1968 Adult Wellness Visit 2015 Zoster Vaccines (3 of 3) 04/13/2024 02/17/2024, 12/03/2010 COVID-19 Vaccine ( season) 2024 04/10/2022, 11/02/2021, 02/05/2021, Additional history exists Influenza Vaccine (FLU shot) (#1) 2024 07/22/2023, 06/26/2022, 07/09/2021, Additional history exists HbA1c 07/01/2024 12/30/2023, 07/20, 03/25/2023, Additional history exists GFR 12/29/2024 12/30/2023 TSH 12/29/2024 12/30/2023 Diabetic Foot Exam 02/16/2025 02/17/2024 Diabetic Eye Exam 03/23/2025 03/23/2024, , 02/17/2024 Depression Screening 07/27/2025 07/27/2024 DXA Scan 07/07/2026 07/07/2024, 02/17, 03/03/2019, Additional history exists DTap/Tdap Vaccines (2 - Td or Tdap) 02/16/2034 02/17/2024 Pneumococcal Vaccine: 65+ Years Completed 02/08/2019, 2015, 08/24/2013 VITAMIN D LEVEL ONCE IN A LIFETIME-USE SMARTSET# 70436 Completed 10/05/2022, 07/05/2022, 08/03/2020, Additional history exists Colonoscopy Discontinued 07/23/2024 Colorectal Cancer Screening Discontinued Cologuard Discontinued Fecal Occult Blood Test Discontinued [...] this encounter Medical Devices Implanted Type Area Store Clerk Checker Device Identifier Shelf Expiration Date Model / Serial / Lot Olecranon Plate Implanted:Qty: 1 on 01/02/2024 by Zachary Reese DO at OR [facility] Left: Elbow [id number] / / Screw Bn T10 Ft St Lk 3.5x18mm - [id number] Implanted:Qty: 2 on 01/02/2024 by Zachary Reese DO at OR [facility] Left: Elbow ADILIA : ORTHOPAEDICS [id number] / / Screw Bn T10 Ft St Lk 3.5x20mm - [id number] Implanted:Qty: 1 on 01/02/2024 by Zachary Reese, DO at OR [facility] Left: Elbow ADILIA : ORTHOPAEDICS [id number] / / Screw Cortical 3.5x20 - [id number] Implanted:Qty: 1 on 01/02/2024 by Zachary Reese, DO at OR [facility] Left: Elbow ADILIA : ORTHOPAEDICS [id number] / / Screw Bn T10 Ft St Lk 3.5x50mm - [id number] Implanted:Qty: 1 on 01/02/2024 by Zachary Reese, DO at OR [facility] Left: Elbow ADILIA : ORTHOPAEDICS [id number] / / documented as of this encounter Advance Directives * Full Code (Latest Code Status on File) Date Activated Date Inactivated Comments 01/02/2024 11:34 AM 01/02/2024 5:05 PM This order reflects the patients wishes and were consensually agreed upon. Question Answer Comments Discussion of Advance Direct sil occurred with: Not Discussed due to patient's condition Care Teams Window Tinter Relationship Specialty Start Date End Date Maged Katz MD [address] [place] [address] PCP - General Family Medicine 03/26/24 documented as of this encounter
--- OUTSIDE RECORDS SUMMARY | 2024-09-26 17:29 | External Medical Summary ---
Author Name Unknown Address Unknown Organization K01:[facility] - [address] [place] [id number] Laboratory Report Ordering Provider Test Date Status YOLANDA WATKINS 08/18/2024 16:23:30 Final Observation Date Value Abnormality Reference (Units ) Status WBC, Total 08/18/2024 16:23:30 6.06 4.00-10.8 0 (K/uL) Final RBC 08/18/2024 16:23:30 3.47 3.85-5.15 (M/uL) Final Hemoglobin 08/18/2024 16:23:30 10.5 Below low normal 12 .0-15.3 (g/dL) Final Anemia reflex testing trigge rs on a HGB < 12.0 for Females and HGB < 13.0 for Males in accordance with the WHO Anemia Guidelines
Anemia reflex testing triggers on a HGB < 12.0 for Females and HGB < 13.0 for Males in accordance with the WHO Anemia Guidelines HCT 08/18/2024 16:23:30 35.0 Below low normal 36. 0-45.2 (%) Final MCV 08/18/2024 16:23:30 100.9 81.5-97.5 (fL) Final MCH 08/18/2024 16:23:30 30.3 27.0-34.0 (pg) Final MCHC 08/18/2024 16:23:30 30.0 32.0-36.0 (g/dL) Final RDW 08/18/2024 16:23:30 17.3 11.5-15.5 (%) Final Platelets 08/18/2024 16:23:30 126 Below low normal 140 -400 (K/uL) Final MPV 08/18/2024 16:23:30 12.1 6.6-11.1 ( fL) Final Nucleated erythrocytes/100 leukocytes [Ratio] in Blood by Automated count 08/18/2024 16:23:30 0 <=0 (/100 WBCs) [facility] Performing Location [facility] - [address] [facility] [address]
--- OUTSIDE RECORDS SUMMARY | 2024-09-26 17:29 | External Medical Summary ---
Author Name Unknown Address Unknown Organization K01:[facility] [place] [address] [place] [address] Laboratory Report Ordering Provider Test Date Status YOLANDA WATKINS 08/18/2024 16:23:30 Final Observation Date Value Abnormality Reference (Units ) Status Folic Acid 08/18/2024 16:23:30 11.1 >4.5 (ng/ mL) Final Performing Location [facility] [place] [address] [place] [address]
--- OUTSIDE RECORDS SUMMARY | 2024-09-26 17:29 | External Medical Summary | Summary of Care ---
Author Name Unknown Organization [facility] Address [address] [place] [address] Phone [phone] Care Team Providers Care Surgical Pathologist Name Role Phone Maged Katz MD Primary Care Provider [phone] [phone] Encounter Details Date Type Department Care Team (Late st Contact Info) Description 07/26/2024 Orders Only Family Practice [facility] [address] [place] [address] Maged Katz MD [address] [place] [address] Allergies Active Allergy Reactions Criticality Noted Date Comments Penicillins Hives 12/17/2023 Sulfa Antibiotics Nausea/vomiting 02/04/2024 documented as of this encounter (statuses as of 07/26/2024) Medications Medication Sig Dispensed Refills Start Date [...] the morning. 100 Tablet 02/17/2024 Active Nystatin 163632 UNIT/GM External Powder (Nystop) Apply topically to [...] Pain, Severe. 60 Tablet 06/22/2024 Active Calcitonin ([place]) 200 UNIT/ACT Nasal Solution (Fortical)Indication s:History of compression fracture of spine Administer 1 [place] into one nostril in the morning. alternate [...] 30 min after taking tablet 5 Tablet 11 07/14/2024 Active documented as of this encounter (statuses as of 07/26/2024) Active Problems Problem Noted Date Diagnosed Date [...] as of this encounter (statuses as of 07/26/2024) Resolved Problems Problem Noted Date Diagnosed Date Resolved Date Pure hypercholesterolemia 12/30/2023 Pre-operative general physical examination 12/30/2023 03/25/2024 Olecranon fracture, left, cl osed, with routine healing, subsequent encounter 12/23/2023 Overview: Changed initial encounter to subsequent 01/15/24 HL documented as of this encounter (statuses as of 07/26/2024) Immunizations Name Administration Dates Next Due COVID-19 [...] 09/27/2024 10:00 AM EST Office Visit Cardiology, [facility] [address] [place] [address] Deondre Gordillo, DO [address] [place] [address] Health Maintenance Due Date Last Done Comments [...] D LEVEL ONCE IN A LIFETIME-USE SMARTSET# [id number] Completed 10/05/2022, 07/05/2022, 08/03/2020, Additional history exists [...] this encounter Medical Devices Implanted Type Area Hotel Custodian Device Identifier Shelf Expiration Date Model / Serial / Lot Olecranon Plate Implanted:Qty: 1 on 01/02/2024 by Zachary Reese DO at [facility] Left: Elbow [id number] / / Screw Bn T10 Ft St Lk 3.5x18mm - [id number] Implanted:Qty: 2 on 01/02/2024 by Zachary Reese DO at OR [facility] Left: Elbow ADILIA : ORTHOPAEDICS [id number] / / Screw Bn T10 Ft St Lk 3.5x20mm - [id number] Implanted:Qty: 1 on 01/02/2024 by Zachary Reese DO at OR [facility] Left: Elbow ADILIA : ORTHOPAEDICS [id number] / / Screw Cortical 3.5x20 - [id number] Implanted:Qty: 1 on 01/02/2024 by Zachayr Reese DO at OR [facility] Left: Elbow ADILIA : ORTHOPAEDICS [id number] / / Screw Bn T10 [address] Lk 3.5x50mm - [id number] Implanted:Qty: 1 on 01/02/2024 by Zachary Reese DO at OR [facility] Left: Elbow ADILIA : ORTHOPAEDICS [id number] / / documented as of this encounter Procedures Procedure Name Priority Date/Time Associated Diagnosis Comments COLONOSCOPY, OUTSIDE PROCEDURE Routine 07/23/2024 documented in this encounter Results * COLONOSCOPY, OUTSIDE PROCEDURE (07/23/2024) 07/23/2024 History Per Patient GASTRO LOWER [facility] Organization Address City/State/ZIP Co de Phone Number OUTSIDE LAB (SEE SCANNED REPORT) documented in this encounter Advance Directives * Full Code (Latest Code Status on File) Date Activated Date Inactivated Comments 01/02/2024 11:34 AM 01/02/2024 5:05 PM This order reflects the patients wishes and were consensually agreed upon. Question Answer Comments Discussion of Advance Direct sil occurred with: Not Discussed due to patient's condition Care Teams Surgical Pathologist Relationship Specialty Start Date End Date Maged Katz MD [address] [place] [address] PCP - General Family Medicine 03/26/24 documented as of this encounter
--- OUTSIDE RECORDS SUMMARY | 2024-09-26 17:29 | External Medical Summary | Summary of Care ---
Author Name Unknown Organization [facility] Address [address] [place] [address] Phone [phone] Care Team Providers Care Ice Resurfacing Machine Operators Name Role Phone Maged Katz MD Primary Care Provider [phone] Encounter Details Date Type Department Care Team (Late st Contact Info) Description 07/21/2024 Population Health External Data Unspecified Department Allergies Active Allergy Reactions Criticality Noted Date Comments Penicillins Hives 12/17/2023 Sulfa Antibiotics Nausea/vomiting 02/04/2024 documented as of this encounter (statuses as of 07/21/2024) Medications Medication Sig Dispensed Refills Start Date [...] the morning. 100 Tablet 02/17/2024 Active Nystatin 898328 UNIT/GM External Powder (Nystop) Apply topically to affected area 3 times a day. Apply to skin fold under stomach 15 g 05/25/2024 Active [place] Ren In Vitro Strip (Glucose Blood) Use up to 4 times a day E11.9 100 Strip 05/26/2024 Active oxyCODONE HCl 5 MG Oral Tablet (Oxy IR)Indications:Histo ry of compression fracture of spine Take 1 Tablet by mouth every 8 hours as needed for Pain, Severe. 60 Tablet 06/22/2024 Active Calcitonin ([place]) 200 UNIT/ACT Nasal Solution (Fortical)Indication s:History of compression fracture of spine Administer 1 [place] into one nostril in the morning. alternate [...] as of this encounter (statuses as of 07/21/2024) Active Problems Problem Noted Date Diagnosed Date [...] as of this encounter (statuses as of 07/21/2024) Resolved Problems Problem Noted Date Diagnosed Date Resolved Date Pure hypercholesterolemia 12/30/2023 Pre-operative general physical examination 12/30/2023 03/25/2024 Olecranon fracture, left, cl osed, with routine healing, subsequent encounter 12/23/2023 Overview: Changed initial encounter to subsequent 01/15/24 HL documented as of this encounter (statuses as of 07/21/2024) Immunizations Name Administration Dates Next Due COVID-19 [...] 09/27/2024 10:00 AM EST Office Visit Cardiology, [facility] [address] [place] [address] Deondre Gordillo DO [address] [place] [address] Health Maintenance Due Date Last Done Comments [...] D LEVEL ONCE IN A LIFETIME-USE SMARTSET# 29652 Completed 10/05/2022, 07/05/2022, 08/03/2020, Additional history exists [...] this encounter Medical Devices Implanted Type Area Silvering Applicator Device Identifier Shelf Expiration Date Model / Serial / Lot Olecranon Plate Implanted:Qty: 1 on 01/02/2024 by Zachary Reese DO at OR [facility] Left: Elbow [id number] / / Screw Bn T10 Ft St Lk 3.5x18mm - [id number] Implanted:Qty: 2 on 01/02/2024 by Zachary Reese DO at OR [facility] Left: Elbow ADILIA : ORTHOPAEDICS [id number] / / Screw Bn T10 Ft [address] Lk 3.5x20mm - [id number] Implanted:Qty: 1 on 01/02/2024 by Zachary Reese DO at OR [facility] Left: Elbow ADILIA : ORTHOPAEDICS [id number] / / Screw Cortical 3.5x20 - [id number] Implanted:Qty: 1 on 01/02/2024 by Zachary Reese DO at OR [facility] Left: Elbow ADILIA : ORTHOPAEDICS [id number] / / Screw Bn T10 [address] Lk 3.5x50mm - [id number] Implanted:Qty: 1 on 01/02/2024 by Zachary Reese DO at OR [facility] Left: Elbow ADILIA : ORTHOPAEDICS [id number] / / documented as of this encounter Advance Directives * Full Code (Latest Code Status on File) Date Activated Date Inactivated Comments 01/02/2024 11:34 AM 01/02/2024 5:05 PM This order reflects the patients wishes and were consensually agreed upon. Question Answer Comments Discussion of Advance Direct sil occurred with: Not Discussed due to patient's condition Care Teams Ice Resurfacing Machine Operators Relationship Specialty Start Date End Date Maged Katz MD [address] [place] [address] PCP - General Family Medicine 03/26/24 documented as of this encounter
--- OUTSIDE RECORDS SUMMARY | 2024-09-26 17:29 | External Medical Summary ---
Author Name Unknown Address Unknown Organization [id number]:[facility] [place] [address] [facility] [place] [address] Laboratory Report Ordering Provider Test Date Status YOLANDA WATKINS 08/18/2024 16:23:30 Final Observation Date Value Abnormality Reference (Units ) Status SYNC LEUKOCYTES IN BLOOD BY AUTOMATED COUNT 08/18/2024 16:23:30 6.06 4.00-10.80 (K/uL) Final Segs 08/18/2024 16:23:30 63.4 40.0-75.0 (%) Final Lymphs % 08/18/2024 16:23:30 23.8 18.0-42.0 (%) Final Monos 08/18/2024 16:23:30 10.7 1.0-11.0 (%) Final Eosinophils 08/18/2024 16:23:30 0.7 0.0-6.0 (%) Final Basos 08/18/2024 16:23:30 1.2 0.0-2.0 (%) Final Immature Granulocyte, Percent 08/18/2024 16:23:30 0.2 0.0-2.0 (%) Final Absolute Segs 08/18/2024 16:23:30 3.85 1.80-7.70 (K/uL) Final Lymphs, absolute 08/18/2024 16:23:30 1.44 1.00-4.80 (K/ul) Final Monos, Abs 08/18/2024 16:23:30 0.65 0.00-1.10 (K/uL) Final Eos, Abs 08/18/2024 16:23:30 0.04 0.00-0.70 (K/uL) Final Basos, Abs 08/18/2024 16:23:30 0.07 0.00-0.20 (K/uL) Final Immature Granulocytes, Number 08/18/2024 16:23:30 0.01 0.00-0.20 (K/uL) Final Performing Location [facility] [place] [address] [facility] [address]
--- OUTSIDE RECORDS SUMMARY | 2024-09-26 17:29 | External Medical Summary | Summary of Care ---
Author Name Unknown Organization [facility] Address [address] [place] [address] Phone [phone] Care Team Providers Care Medication Aid Name Role Phone Maged Katz MD Primary Care Provider +1 [phone] Reason for Visit * Reason Onset Date Comments Fax 08/13/2024 Encounter Details Date Type Department Care Team (Late st Contact Info) Description 08/13/2024 Telephone [facility] Practice [facility] [place] [address] Maged Katz MD [address] [place] [address] Fax Allergies Active Allergy Reactions Criticality Noted Date [...] Severe. 60 Tablet 06/22/2024 Active Calcitonin ([place]) 200 UNIT/ACT Nasal Solution (Fortical)Indicatio ns:History of compression fracture of spine Administer 1 [place] into one nostril in the morning. alternate [...] Information Patient not taking.Reported on 07/27/2024 Nystatin 624811 UNIT/GM External Powder (Nystop) Apply topically to [...] before bedtime. 60 Tablet 3 08/03/2024 Active documented as of this encounter (statuses [...] encounter Miscellaneous Notes * Telephone Encounter - Bronwyn Day LPN - 08/18/2024 1:36 PM EDT Will watch for form * Telephone Encounter - Francisco Malik OSA - 08/13/2024 11:36 AM EDT Received a call asking if fax was received by office. Name/Company sending fax: [email or web address] What fax is pertaining to: Faxing over form for patient to continue physical therapy services Date(s) they sent request: 08/13/2024 Verified fax number they are sending to is correct (Y or N): Yes. Callback Number for the clinic to call to verified if fax was received: [phone] documented in this encounter Plan of Treatment Upcoming Encounters Date Type Department Care Team (Late st Contact Info) Description 08/18/2024 3:20 PM EDT Office Visit Family Practice [facility] [address] [place] [address] Maged Katz MD [address] [place] [address] 09/27/2024 10:00 AM EST Office Visit Cardiology, [facility] [address] [place] [address] Deondre Gordillo DO [address] [place] [address] 11/17/2024 3:00 PM EST Office Visit Rheumatology [place] [address] [facility] [place] [address] Pierre Larry CRNP [facility] [facility] [place] [address] Health Maintenance Due Date Last Done Comments [...] D LEVEL ONCE IN A LIFETIME-USE SMARTSET# [id number] Completed 10/05/2022, 07/05/2022, 08/03/2020, Additional history exists [...] this encounter Medical Devices Implanted Type Area Warehouse Processor Device Identifier Shelf Expiration Date Model / Serial / Lot Olecranon Plate Implanted:Qty: 1 on 01/02/2024 by Zachary Reese DO at [facility] Left: Elbow [id number] / / Screw Bn T10 Ft St Lk 3.5x18mm - [id number] Implanted:Qty: 2 on 01/02/2024 by Zachary Reese DO at [facility] Left: Elbow ADILIA : ORTHOPAEDICS [id number] / / Screw Bn T10 Ft St Lk 3.5x20mm - [id number] Implanted:Qty: 1 on 01/02/2024 by Zachary Reese DO at [facility] Left: Elbow ADILIA : ORTHOPAEDICS [id number] / / Screw Cortical 3.5x20 - [id number] Implanted:Qty: 1 on 01/02/2024 by Zachary Reese, at [facility] Left: Elbow ADILIA : ORTHOPAEDICS [id number] / / Screw Bn T10 Ft St Lk 3.5x50mm - [id number] Implanted:Qty: 1 on 01/02/2024 by Zachary Reese DO at OR [facility] Left: Elbow ADILIA : ORTHOPAEDICS [id number] / / documented as of this encounter Advance Directives * Full Code (Latest Code Status on File) Date Activated Date Inactivated Comments 01/02/2024 11:34 AM 01/02/2024 5:05 PM This order reflects the patients wishes and were consensually agreed upon. Question Answer Comments Discussion of Advance Direct sil occurred with: Not Discussed due to patient's condition Care Teams Medication Aid Relationship Specialty Start Date End Date Maged Katz MD [address] [place] [address] PCP - General Family Medicine 03/26/24 documented as of this encounter
--- OUTSIDE RECORDS SUMMARY | 2024-09-26 17:29 | External Medical Summary ---
Author Name Unknown Address Unknown Organization K01:[facility] [place] [facility] [address] [place] [address] Laboratory Report Ordering Provider Test Date Status YOLANDA WATKINS 08/18/2024 16:23:30 Final Observation Date Value Abnormality Reference (Units ) Status Creatinine 08/18/2024 16:23:30 0.7 0.5-1.0 (mg/dL) Final Glomerular filtration rate/1.73 sq M.predicted [Volume Rate/Area] in Serum, Plasma or Blood by Creatinine-based formula (CKD-EPI) 08/18/2024 16:23:30 >90 >=60 (mL/min) Final eGFR is calculated based on the CKD-EPI 2020 equation. Performing Location [facility] [place] [address] [place] [address]
--- OUTSIDE RECORDS SUMMARY | 2024-09-26 17:29 | External Medical Summary | Summary of Care ---
Author Name Unknown Organization [facility] Address [address] [place] [address] Phone [phone] Care Team Providers Care Choirmaster Name Role Phone Maged Katz MD Primary Care Provider [phone] [phone] Encounter Details Date Type Department Care Team (Late st Contact Info) Description 05/06/2024 Telephone Ophthalmology, [facility] [address] [place] [address] Dagoberto Rai MD [address] [place] [address] Allergies Active Allergy Reactions Criticality Noted Date Comments Penicillins Hives 12/17/2023 Sulfa Antibiotics Nausea/vomiting 02/04/2024 documented as of this encounter (statuses as of 08/05/2024) Medications Medication Sig Dispensed Refills Start Date [...] in the morning. 100 Tablet 02/17/2024 Active Ozempic (1 MG/DOSE) 2 MG/1.5ML Subcutaneous Solution Pen-injector (Semaglutide (1 MG/DOSE)) Inject 1 mg under the skin once a week. 2 Each 12/30/2023 4 Discontinue d(Refill) Levothyroxine Sodium 125 MCG Oral Tablet (Levoxyl) Take 1 Tablet by mouth daily first thing in the morning. (at least 30 min prior to breakfast or other meds) 30 Tablet 02/17/2024 4 Discontinue d(Refill) Pantoprazole Sodium 40 MG Oral Tablet Delayed Release (Protonix) Take 1 Tablet by mouth in the morning. 30 Tablet 02/17/2024 4 Discontinue d(Refill) Ferrous Sulfate 325 (65 Fe) MG Oral Tablet (Feosol) Take 1 Tablet by mouth daily with breakfast. 30 Tablet 02/17/2024 4 Discontinue d(Refill) oxyCODONE HCl 5 MG Oral Tablet (Oxy IR)Indications:Com pression fracture of L2 vertebra with routine healing, subsequent encounter Take 1 Tablet by mouth every 8 hours as needed for Pain, Severe. 60 Tablet 03/26/2024 Discontinue d(Refill) documented as of this encounter (statuses as of 08/05/2024) Active Problems Problem Noted Date Diagnosed Date [...] as of this encounter (statuses as of 08/05/2024) Resolved Problems Problem Noted Date Diagnosed Date Resolved Date Pure hypercholesterolemia 12/30/2023 Pre-operative general physical examination 12/30/2023 03/25/2024 Olecranon fracture, left, cl osed, with routine healing, subsequent encounter 12/23/2023 Overview: Changed initial encounter to subsequent 01/15/24 HL documented as of this encounter (statuses as of 08/05/2024) Immunizations Name Administration Dates Next Due COVID-19 [...] encounter Miscellaneous Notes * Telephone Encounter - Veronica Suh OSA - 05/06/2024 1:10 PM EDT Called and left message stating that appt on 05/07 was cancelled and needs to be rescheduled. documented in this encounter Plan of Treatment Upcoming Encounters Date Type Department Care Team (Late st Contact Info) Description 08/10/2024 3:20 PM EDT Office Visit Family Practice [facility] [address] [place] [address] Maged Katz MD [address] [place] [address] 09/27/2024 10:00 AM EST Office Visit Cardiology, [facility] [address] [place] [address] Deondre Gordillo, [address] [place] [address] 11/17/2024 3:00 PM EST Office Visit Rheumatology [place] [address] [place] [address] Pierre Larry CRNP [address] [place] [address] Health Maintenance Due Date Last Done Comments [...] D LEVEL ONCE IN A LIFETIME-USE SMARTSET# [id number] Completed 10/05/2022, 07/05/2022, 08/03/2020, Additional history exists [...] this encounter Medical Devices Implanted Type Area Bag Mender Device Identifier Shelf Expiration Date Model / Serial / Lot Olecranon Plate Implanted:Qty: 1 on 01/02/2024 by Zachary Reese, at OR [facility] Left: Elbow [id number] / / Screw Bn T10 Ft St Lk 3.5x18mm - [id number] Implanted:Qty: 2 on 01/02/2024 by Zachary Reese, DO at [facility] Left: Elbow ADILIA : ORTHOPAEDICS [id number] / / Screw Bn T10 Ft St Lk 3.5x20mm - [id number] Implanted:Qty: 1 on 01/02/2024 by Zachary Reese, DO at [facility] Left: Elbow ADILIA : ORTHOPAEDICS [id number] / / Screw Cortical 3.5x20 - [id number] Implanted:Qty: 1 on 01/02/2024 by Zachary Reese, DO at [facility] Left: Elbow ADILIA : ORTHOPAEDICS [id number] / / Screw Bn T10 Ft St Lk 3.5x50mm - [id number] Implanted:Qty: 1 on 01/02/2024 by Zachary Reese, DO at [facility] Left: Elbow ADILIA : ORTHOPAEDICS [id number] / / documented as of this encounter Advance Directives * Full Code (Latest Code Status on File) Date Activated Date Inactivated Comments 01/02/2024 11:34 AM 01/02/2024 5:05 PM This order reflects the patients wishes and were consensually agreed upon. Question Answer Comments Discussion of Advance Direct sil occurred with: Not Discussed due to patient's condition Care Teams Choirmaster Relationship Specialty Start Date End Date Maged Katz MD [address] [place] [address] PCP - General Family Medicine 03/26/24 documented as of this encounter
--- OUTSIDE RECORDS SUMMARY | 2024-09-26 17:29 | External Medical Summary | Summary of Care ---
Author Name Unknown Organization [facility] Address [address] [place] [address] Phone [phone] Care Team Providers Care Heater Installer Name Role Phone Maged Katz MD Primary Care Provider [phone] [phone] Reason for Visit * Reason Onset Date Comments Medication Refill 08/03/2024 Encounter Details Date Type Department Care Team (Late st Contact Info) Description 08/03/2024 Refill [facility] [address] [facility] [address] Claribel Garcia, LOU [address] [place] [address] Postoperative hypothyroidism*; Gastroesophageal reflux disease without esophagitis Allergies Active Allergy Reactions Criticality Noted Date Comments Penicillins Hives 12/17/2023 Sulfa Antibiotics Nausea/vomiting 02/04/2024 documented as of this encounter (statuses as of 08/03/2024) Medications Medication Sig Dispensed Refills Start Date [...] Pain, Severe. 60 Tablet 06/22/2024 Active Calcitonin ([place]) 200 UNIT/ACT Nasal Solution (Fortical)Indicati ons:History of compression fracture of spine Administer 1 [place] into one nostril in the morning. alternate nostrils.. 3 mL 11 06/22/2024 Active Ozempic (1 MG/DOSE) 2 MG/1.5ML Subcutaneous Solution Pen-injector (Semaglutide (1 MG/DOSE)) Inject 1 mg under the skin once a week. 2 Each 07/02/2024 Active Additional Information Patient not taking.Reported on 07/27/2024 Alendronate Sodium 70 MG Oral Tablet (Fosamax)Indicatio ns:Senile osteoporosis Take 1 Tablet by mouth once a week. with 8 oz. water 30 minutes before first meal of the day. Remain upright for 30 min after taking tablet 5 Tablet 11 07/14/2024 Active Additional Information Patient not taking.Reported on 07/27/2024 Nystatin 048001 UNIT/GM External Powder (Nystop) Apply topically to affected area 3 times a day. Apply to skin fold under stomach 15 g 08/03/2024 Active Pantoprazole Sodium 40 MG [...] 60 Tablet 3 08/03/2024 Active Levothyroxine Sodium 125 MCG Oral Tablet (Levoxyl) Take 1 Tablet by mouth daily first thing in the morning. (at least 30 min prior to breakfast or other meds) 30 Tablet 11 02/17/2024 4 Discontinue d(Refill) Pantoprazole Sodium 40 MG Oral Tablet Delayed Release (Protonix) Take 1 Tablet by mouth in the morning. 30 Tablet 11 02/17/2024 4 Discontinue d(Refill) Ferrous Sulfate 325 (65 Fe) MG Oral Tablet (Feosol) Take 1 Tablet by mouth daily with breakfast. 30 Tablet 11 02/17/2024 4 Discontinue d(Refill) Magnesium Chloride 64 MG Oral Tablet Take by mouth. 1 tab twice a day 4 Discontinue d(Refill) documented as of this encounter (statuses as of 08/03/2024) Active Problems Problem Noted Date Diagnosed Date [...] as of this encounter (statuses as of 08/03/2024) Resolved Problems Problem Noted Date Diagnosed Date Resolved Date Pure hypercholesterolemia 12/30/2023 Pre-operative general physical examination 12/30/2023 03/25/2024 Olecranon fracture, left, cl osed, with routine healing, subsequent encounter 12/23/2023 Overview: Changed initial encounter to subsequent 01/15/24 HL documented as of this encounter (statuses as of 08/03/2024) Immunizations Name Administration Dates Next Due COVID-19 [...] 3:20 PM EDT Office Visit Family Practice [facility] [address] [place] [address] Maged Katz MD [address] [place] [address] 09/27/2024 10:00 AM EST Office Visit Cardiology, [facility] [address] [place] [address] Deondre Gordillo DO [address] [place] [address] 11/17/2024 3:00 PM EST Office Visit [facility]umatology [place] [address] [facility] [place] [address] Pierre Larry CRNP [address] [facility] [place] [address] Health Maintenance Due Date Last Done Comments [...] D LEVEL ONCE IN A LIFETIME-USE SMARTSET# [id number] Completed 10/05/2022, 07/05/2022, 08/03/2020, Additional history exists [...] this encounter Medical Devices Implanted Type Area Rf Design Engineer Device Identifier Shelf Expiration Date Model / Serial / Lot Olecranon Plate Implanted:Qty: 1 on 01/02/2024 by Zachary Reese DO at OR [facility] Left: Elbow [id number] / / Screw Bn T10 Ft St Lk 3.5x18mm - [id number] Implanted:Qty: 2 on 01/02/2024 by Zachary Reese DO at OR [facility] Left: Elbow ADILIA : ORTHOPAEDICS [id number] / / Screw Bn T10 Ft St Lk 3.5x20mm - [id number] Implanted:Qty: 1 on 01/02/2024 by Zachary Reese DO at [facility] Left: Elbow ADILIA : ORTHOPAEDICS [id number] / / Screw Cortical 3.5x20 - [id number] Implanted:Qty: 1 on 01/02/2024 by Zachary Reese DO at OR [facility] Left: Elbow ADILIA : ORTHOPAEDICS [id number] / / Screw Bn T10 [address] Lk 3.5x50mm - [id number] Implanted:Qty: 1 on 01/02/2024 by Zachary Reese, DO at OR [facility] Left: Elbow ADILIA : ORTHOPAEDICS [id number] / / documented as of this encounter Visit Diagnoses Diagnosis Postoperative hypothyroidism- Primary Postsurgical hypothyroidism Gastroesophageal reflux disease without esophagitis Esophageal reflux documented in this encounter Advance Directives * Full Code (Latest Code Status on File) Date Activated Date Inactivated Comments 01/02/2024 11:34 AM 01/02/2024 5:05 PM This order reflects the patients wishes and were consensually agreed upon. Question Answer Comments Discussion of Advance Direct sil occurred with: Not Discussed due to patient's condition Care Teams Heater Installer Relationship Specialty Start Date End Date Maged Katz MD [address] [facility] [place] [address] PCP - General Family Medicine 03/26/24 documented as of this encounter
--- OUTSIDE RECORDS SUMMARY | 2024-09-26 17:29 | External Medical Summary | Summary of Care ---
Author Name Unknown Organization [facility] Address [address] [place] [address] Phone [phone] Care Team Providers Care Body Repairer Name Role Phone June Guerrero MD Primary Care Provider [phone] Reason for Visit * Reason Onset Date Comments Medication Refill 08/02/2024 Encounter Details Date Type Department Care Team (Late st Contact Info) Description 08/02/2024 [facility] [place] [address] June Guerrero MD [address] [facility] [place] [address] Allergies Active Allergy Reactions Criticality Noted Date [...] Additional Information Patient taking differently: 150 mcgOral [id number], (at least 30 min prior to breakfast [...] the morning. 100 Tablet 02/17/2024 Active OneTouch Vercait In Vitro Strip (Glucose Blood) Use up to 4 times a day E11.9 100 Strip 11 05/26/2024 Active oxyCODONE HCl 5 MG Oral Tablet (Oxy IR)Indications:His tory of compression fracture of spine Take 1 Tablet by mouth every 8 hours as needed for Pain, Severe. 60 Tablet 06/22/2024 Active Calcitonin ([place]) 200 UNIT/ACT Nasal Solution (Fortical)Indicati ons:History of compression fracture of spine Administer 1 [place] into one nostril in the morning. alternate [...] mouth. 1 tab twice a day Active Nystatin 502346 UNIT/GM External Powder (Nystop) Apply topically to affected area 3 times a day. Apply to skin fold under stomach 15 g 08/03/2024 Active Nystatin 330210 UNIT/GM External Powder (Nystop) Apply topically to affected area 3 times a day. Apply to skin fold under stomach 15 g 05/25/2024 Discontinue d(Refill) documented as of this encounter [...] Telephone Encounter - June Guerrero MD - 08/03/2024 9:12 AM EDTSigned Prescriptions: Disp Refills Nystatin 086398 UNIT/GM External Powder (N*15 g 0 Sig: Apply topically to affected area 3 times a day. Apply to skin fold under stomach Authorizing Provider: JUNE GUERRERO * Telephone Encounter - Stephanie Torres LPN - 08/03/2024 8:27 AM EDTPending Prescriptions: Disp Refills Nystatin 203256 UNIT/GM External Powder (N*15 g 0 Sig: Apply topically to affected area 3 times a day. Apply to skin fold under stomach * Telephone Encounter - Stephanie Torres LPN - 08/03/2024 8:27 AM EDT Did you pend patient's preferred pharmacy and medication before forwarding?yes Pharmacy: [facility] [address] Pending Prescriptions: Disp Refills Nystatin 365966 UNIT/GM External Powder (*15 g 0 Sig: Apply topically to affected area 3 times a day. Apply to skin fold under stomach Last Visit: 03/26/2024 (in office), 06/22/2024 (telemedicine) Next Visit: 08/03/2024 If no future appointments scheduled, and last appointment is greater than a year ago, please schedule patient for a follow-up appointment Last date the medication was ordered: 05/25/24 Is this request for a controlled substance?No Urine Drug Screen:No results found for this or any previous visit. Patient Phone Numbers Labs: Lab Results Component Value Date/Time CREAT 0.7 12/30/2023 10:51 AM POTASSIUM 5.1 12/30/2023 10:51 AM TSH 1.16 12/30/2023 10:51 AM ALT 14 12/30/2023 10:51 AM HGBA1C 7.0 (H) 12/30/2023 10:51 AM HGBA1C 7.0 (H) 08/05/2023 04:47 AM * Telephone Encounter - Gómez Zuñiga - 08/03/2024 8:26 AM EDTPending Prescriptions: Disp Refills Nystatin 736702 UNIT/GM External Powder (N*15 g 0 Sig: Apply topically to affected area 3 times a day. Apply to skin fold under stomach documented in this encounter Plan of Treatment Upcoming Encounters Date Type Department Care Team (Late st Contact Info) Description 08/10/2024 3:20 PM EDT Office Visit Family Practice [facility] [address] [place] [address] June Guerrero MD [address] [place] [address] 09/27/2024 10:00 AM EST Office Visit Cardiology, [facility] [address] [place] [address] Deondre Gordillo DO [address] [place] [address] 11/17/2024 3:00 PM EST Office Visit Rheumatology [address] [place] [address] Pierre Larry CRNP [address] [place] [address] [place] [address] Health Maintenance Due Date Last Done Comments [...] D LEVEL ONCE IN A LIFETIME-USE SMARTSET# 22336 Completed 10/05/2022, 07/05/2022, 08/03/2020, Additional history exists [...] this encounter Medical Devices Implanted Type Area Welding Machine Operator Helper Arc Device Identifier Shelf Expiration Date Model / Serial / Lot Olecranon Plate Implanted:Qty: 1 on 01/02/2024 by Zachary Reese, DO at [facility] Left: Elbow [id number] / / Screw Bn T10 Ft St Lk 3.5x18mm - [id number] Implanted:Qty: 2 on 01/02/2024 by Zachary Reese, DO at [facility] Left: Elbow ADILIA : ORTHOPAEDICS [id number] / / Screw Bn T10 Ft St Lk 3.5x20mm - [id number] Implanted:Qty: 1 on 01/02/2024 by Zachary Reese, DO at OR [facility] Left: Elbow ADILIA : ORTHOPAEDICS [id number] / / Screw Cortical 3.5x20 - [id number] Implanted:Qty: 1 on 01/02/2024 by Zachary Reese, DO at [facility] Left: Elbow ADILIA : ORTHOPAEDICS [id number] / / Screw Bn T10 [address] Lk 3.5x50mm - [id number] Implanted:Qty: 1 on 01/02/2024 by Zachary Reese, DO at [facility] Left: Elbow ADILIA : ORTHOPAEDICS [id number] / / documented as of this encounter Advance Directives * Full Code (Latest Code Status on File) Date Activated Date Inactivated Comments 01/02/2024 11:34 AM 01/02/2024 5:05 PM This order reflects the patients wishes and were consensually agreed upon. Question Answer Comments Discussion of Advance Direct sil occurred with: Not Discussed due to patient's condition Care Teams Body Repairer Relationship Specialty Start Date End Date June Guerrero MD [address] [place] [address] PCP - General Family Medicine 03/26/24 documented as of this encounter
--- OUTSIDE RECORDS SUMMARY | 2024-09-26 17:29 | External Medical Summary ---
Author Name Unknown Address Unknown Organization K01:[facility] - [address] [facility] [address] Laboratory Report Ordering Provider Test Date Status YOLANDA WATKINS 08/18/2024 16:23:30 Final Observation Date Value Abnormality Reference (Units ) Status HbA1C 08/18/2024 16:23:30 4.9 4.0-5.6 (% ) Final The use of HbA1c to monitor glycemic status is based on normal hemoglobin and HbA composition. This test should not be used in patients with abnormal hemoglobin that affects the half life of the red blood cell or the in vivo glycation rates. Glucose, estimated average 08/18/2024 16:23:30 94 <126 (mg/dL) Final Performing Location [facility] - [address] [facility] [address]
--- OUTSIDE RECORDS SUMMARY | 2024-09-26 17:29 | External Medical Summary | Summary of Care ---
Author Name Unknown Organization [facility] Address [address] [place] [address] Phone [phone] Care Team Providers Care Psychiatric Aide Name Role Phone Maged Katz MD Primary Care Provider [phone] Reason for Visit * Reason Onset Date Comments Advice 07/27/2024 When to restart eliquis and aspirin Encounter Details Date Type Department Care Team (Late st Contact Info) Description 07/27/2024 Telephone Care Coordination and Integration [address], [place] [id number] Claribel Garcia RN [address] [place] [address] Advice (When to restart eliquis and aspirin) Allergies Active Allergy Reactions Criticality Noted Date Comments Penicillins Hives 12/17/2023 Sulfa Antibiotics Nausea/vomiting 02/04/2024 documented as of this encounter (statuses as of 07/28/2024) Medications Medication Sig Dispensed Refills Start Date [...] Additional Information Patient taking differently: 150 mcgOral [id number], (at least 30 min prior to breakfast [...] the morning. 100 Tablet 02/17/2024 Active Nystatin 204521 UNIT/GM External Powder (Nystop) Apply topically to [...] Pain, Severe. 60 Tablet 06/22/2024 Active Calcitonin ([place]) 200 UNIT/ACT Nasal Solution (Fortical)Indicatio ns:History of compression fracture of spine Administer 1 [place] into one nostril in the morning. alternate [...] as of this encounter (statuses as of 07/28/2024) Active Problems Problem Noted Date Diagnosed Date [...] as of this encounter (statuses as of 07/28/2024) Resolved Problems Problem Noted Date Diagnosed Date Resolved Date Pure hypercholesterolemia 12/30/2023 Pre-operative general physical examination 12/30/2023 03/25/2024 Olecranon fracture, left, cl osed, with routine healing, subsequent encounter 12/23/2023 Overview: Changed initial encounter to subsequent 01/15/24 HL documented as of this encounter (statuses as of 07/28/2024) Immunizations Name Administration Dates Next Due COVID-19 [...] No 07/27/2024 Does the household have a [facility]? (Household - for ages [...] Telephone Encounter - Claribel Garcia RN - 07/28/2024 12:24 PM EDT MyG message sent. * Telephone Encounter - Maged Katz MD - 07/27/2024 7:04 PM EDT No med changes until she sees me. We will talk about all of it at that time. * Telephone Encounter - Clraibel Garcia RN - 07/27/2024 3:26 PM EDT Patient was discharged from [facility] on 07/25 following upper GI bleed. [...] 3:20 PM EDT Office Visit Family Practice [facility] [address] [place] [address] Maged Katz MD [address] [place] [address] 09/27/2024 10:00 AM EST Office Visit Cardiology, [facility] [address] [place] [address] Deondre Gordillo DO [address] [place] [address] 11/17/2024 3:00 PM EST Office Visit Rheumatology [place] [id number] [place] [address] Pierre Larry CRNP [address] [place] [address] Health Maintenance Due Date Last Done Comments [...] D LEVEL ONCE IN A LIFETIME-USE SMARTSET# [id number] Completed 10/05/2022, 07/05/2022, 08/03/2020, Additional history exists [...] this encounter Medical Devices Implanted Type Area Superintendent Drilling Device Identifier Shelf Expiration Date Model / Serial / Lot Olecranon Plate Implanted:Qty: 1 on 01/02/2024 by Zachary Reese, DO at [facility] Left: Elbow [id number] / / Screw Bn T10 Ft St Lk 3.5x18mm - [id number] Implanted:Qty: 2 on 01/02/2024 by Zachary Reese, DO at [facility] Left: Elbow ADILIA : ORTHOPA[employer]ICS [id number] / / Screw Bn T10 Ft St Lk 3.5x20mm - [id number] Implanted:Qty: 1 on 01/02/2024 by Zachary Reese, DO at [facility] Left: Elbow ADILIA : ORTHOPAEDICS [id number] / / Screw Cortical 3.5x20 - [id number] Implanted:Qty: 1 on 01/02/2024 by Zachary Reese, DO at [facility] Left: Elbow ADILIA : ORTHOPAEDICS [id number] / / Screw Bn T10 Ft [address] Lk 3.5x50mm - [id number] Implanted:Qty: 1 on 01/02/2024 by Zachary Reese DO at [facility] Left: Elbow DAILIA : ORTHOPAEDICS [id number] / / documented as of this encounter Advance Directives * Full Code (Latest Code Status on File) Date Activated Date Inactivated Comments 01/02/2024 11:34 AM 01/02/2024 5:05 PM This order reflects the patients wishes and were consensually agreed upon. Question Answer Comments Discussion of Advance Direct sil occurred with: Not Discussed due to patient's condition Care Teams Psychiatric Aide Relationship Specialty Start Date End Date Maged Katz MD [address] [facility] [place] [address] PCP - General Family Medicine 03/26/24 documented as of this encounter
--- OUTSIDE RECORDS SUMMARY | 2024-09-26 17:29 | External Medical Summary | Summary of Care ---
Author Name Unknown Organization [facility] Address [address] [place] [address] Phone [phone] Care Team Providers Care Enrichment Director Name Role Phone Maged Katz MD Primary Care Provider [phone] Encounter Details Date Type Department Care Team (Late st Contact Info) Description 08/03/2024 Population Health External Data Unspecified Department Allergies Active Allergy Reactions Criticality Noted Date Comments Penicillins Hives 12/17/2023 Sulfa Antibiotics Nausea/vomiting 02/04/2024 documented as of this encounter (statuses as of 08/04/2024) Medications Medication Sig Dispensed Refills Start Date [...] morning and evening meals. 120 Tablet 11 02/17/2024 Active Metoprolol Tartrate 25 MG Oral [...] Pain, Severe. 60 Tablet 06/22/2024 Active Calcitonin ([place]) 200 UNIT/ACT Nasal Solution (Fortical)Indicatio ns:History of compression fracture of spine Administer 1 [place] into one nostril in the morning. alternate [...] Information Patient not taking.Reported on 07/27/2024 Nystatin 916220 UNIT/GM External Powder (Nystop) Apply topically to [...] as of this encounter (statuses as of 08/04/2024) Active Problems Problem Noted Date Diagnosed Date [...] as of this encounter (statuses as of 08/04/2024) Resolved Problems Problem Noted Date Diagnosed Date Resolved Date Pure hypercholesterolemia 12/30/2023 Pre-operative general physical examination 12/30/2023 03/25/2024 Olecranon fracture, left, cl osed, with routine healing, subsequent encounter 12/23/2023 Overview: Changed initial encounter to subsequent 01/15/24 HL documented as of this encounter (statuses as of 08/04/2024) Immunizations Name Administration Dates Next Due COVID-19 [...] 3:20 PM EDT Office Visit Family Practice [facility] [address] [place] [address] Maged Katz MD [address] [place] [address] 09/27/2024 10:00 AM EST Office Visit Cardiology, [facility] [address] [place] [address] Deondre Gordillo DO [address] [place] [address] 11/17/2024 3:00 PM EST Office Visit Rheumatology [place] [phone] [facility] [place] [address] Pierre Larry CRNP [address] [facility] [place] [address] Health Maintenance Due Date Last Done Comments [...] D LEVEL ONCE IN A LIFETIME-USE SMARTSET# [id number] Completed 10/05/2022, 07/05/2022, 08/03/2020, Additional history exists [...] this encounter Medical Devices Implanted Type Area Training Systems Officer Device Identifier Shelf Expiration Date Model / Serial / Lot Olecranon Plate Implanted:Qty: 1 on 01/02/2024 by Zachary Reese DO at [facility] Left: Elbow [id number] / / Screw Bn T10 Ft St Lk 3.5x18mm - [id number] Implanted:Qty: 2 on 01/02/2024 by Zachary Reese DO at [facility] Left: Elbow ADILIA : ORTHOPAEDICS [id number] / / Screw Bn T10 Ft St Lk 3.5x20mm - [id number] Implanted:Qty: 1 on 01/02/2024 by Zachary Reese DO at [facility] Left: Elbow ADILIA : ORTHOPAEDICS [id number] / / Screw Cortical 3.5x20 - [id number] Implanted:Qty: 1 on 01/02/2024 by Zachary Reese DO at [facility] Left: Elbow ADILIA : ORTHOPAEDICS [id number] / / Screw Bn T10 Ft [address] Lk 3.5x50mm - [id number] Implanted:Qty: 1 on 01/02/2024 by Zachary Reese DO at [facility] Left: Elbow ADILIA : ORTHOPAEDICS [id number] / / documented as of this encounter Advance Directives * Full Code (Latest Code Status on File) Date Activated Date Inactivated Comments 01/02/2024 11:34 AM 01/02/2024 5:05 PM This order reflects the patients wishes and were consensually agreed upon. Question Answer Comments Discussion of Advance Direct sil occurred with: Not Discussed due to patient's condition Care Teams Enrichment Director Relationship Specialty Start Date End Date Maged Katz MD [address] [place] [address] PCP - General Family Medicine 03/26/24 documented as of this encounter
--- OUTSIDE RECORDS SUMMARY | 2024-09-26 17:29 | External Medical Summary ---
Author Name Unknown Address Unknown Organization K01:[facility] [address] [place] [address] Laboratory Report Ordering Provider Test Date Status YOLANDA WATKINS 08/18/2024 16:23:30 Final Observation Date Value Abnormality Reference (Units ) Status Retic, % (auto) 08/18/2024 16:23:30 2.02 Above high normal 0.80-1.90 (%) Final Reticulocytes, Absolute 08/18/2024 16:23:30 70.1 31.3-100.1 (K/uL) Final Reticulocyte fraction, immature 08/18/2024 16:23:30 15.2 2.5-20.6 (%) Final Reticulocyte HGB 08/18/2024 16:23:30 32.2 29.7-37.4 (pg) Final Performing Location [facility] [place] [address]
[2024-09-26] MEDS: LORazepam 0.5 MG TAB PO PRN (20:27)
[2024-09-26] MEDS: MICONAZOLE NITRATE POWDER 85 GM EXT PRN (20:33)
[2024-09-27] MEDS: CYCLOBENZAPRINE HCL 10 MG TAB PO STA (06:07)
[2024-09-27 08:07] LABS: Magnesium 1.9 mg/dl (1.7-2.4); Phosphorus 3.9 mg/dl (2.5-4.9)
[2024-09-27 08:36] LABS: BUN Creatinine Ratio 27.4 (10-20); Calcium 7.5 mg/dl (8.6-10.3); Creatinine Clr Calc Pharmacy 40.5 ml/min; Potassium 4.2 mmol/L (3.5-5.1)
[2024-09-27 09:07] LABS: Hematocrit (blood only) 22.8 % (37.0-47.0); Hemoglobin 7.3 g/dl (12.0-16.0); Mean Corpuscular Hemoglobin 29.4 pg (25.0-34.0); Mean Corpuscular Volume 91.9 fL (80.0-100.0); Mean Platelet Volume 11.1 fL (9.4-12.4); Nucleated RBC # (auto) 0.02 K/uL (0.00-0.12); Nucleated RBC % (auto) 0.2 %; Platelet Count 112 K/uL (130-400); RDW Coefficient of Variation 16.7 % (11.5-14.5); RDW Standard Deviation 55.4 fL (36.4-46.3); Red Blood Count 2.48 M/uL (4.20-5.40); White Blood Count 10.88 K/ul (4.8-10.8)
[2024-09-27] MEDS: metFORMIN HCL 500 MG TAB PO SCH (09:14)
[2024-09-27 09:24] LABS: Estimated Average Glucose 108 mg/dl; Hemoglobin A1C 5.4 % (4.5-5.6)
[2024-09-27 09:26] LABS: Acanthocytes 1+; Basophils # (auto) 0.02 K/uL (0.00-0.20); Basophils % (auto) 0.2 %; Eosinophils # (auto) 0.01 K/uL (0.00-0.50); Eosinophils % (auto) 0.1 %; Immature Granulocytes # (auto) 0.05 K/uL (0.01-0.20); Immature Granulocytes % (auto) 0.5 %; Lymphocytes # (auto) 0.61 K/uL (1.20-3.40); Lymphocytes % (auto) 5.6 %; Monocytes # (auto) 1.03 K/uL (0.11-0.59); Monocytes % (auto) 9.5 %; Neutrophils # (auto) 9.16 K/uL (1.40-6.50); Neutrophils % (auto) 84.1 %; Polychromasia 1+
--- NOTE | 2024-09-27 09:26 | Electrocardiogram Report ---
Test Reason : Blood Pressure : */* mmHG Vent. 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
--- NOTE | 2024-09-27 10:22 | Electrocardiogram Report ---
Test Reason : Blood Pressure : */* mmHG Vent. 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 rate has increased by [address] now depressed in Lateral leads Inverted T waves have replaced nonspecific T wave abnormality in Lateral leads Confirmed by Maged Ahumada ([id number]) on 09/27/2024 10:22:24 AM Referred By: REFERRED SELF Confirmed By: Maged Ahumada
--- NOTE | 2024-09-27 10:49 | Cardiology Progress Note ---
Date of Service September 27, 2024 Assessment & Plan (1) PAF (paroxysmal atrial fibrillation): (2) Atrial fibrillation with RVR: (3) Hemorrhagic shock: Plan Fragile 74-year-old female with dementia admitted following mechanical fall with subsequent hip fracture. Course complicated by hemorrhagic shock, blood loss anemia, hypotension, and paroxysmal atrial fibrillation. Patient converted to sinus rhythm with IV amiodarone. Echocardiogram with mild to moderate aortic stenosis, preserved LV systolic function, possible elevation in right heart pressures. Status post surgical hip repair by Dr. Lopez on 09/25/2024 without difficulty. Hemorrhagic shock with acute anemia superimposed on chronic anemia secondary to fall, hip fracture chronic anticoagulation. Status post 4 U pRBC's this admission Hemoglobin 7.3 this AM Ultimately would like to resume anticoagulation with apixaban once gait and hemodynamic stability assured. Continue to hold Eliquis Poorly tolerated paroxysmal atrial fibrillation, with known prior history. - Continue oral amiodarone for at least 30-days - Continue low-dose beta-alysia, metoprolol succinate 12.5 mg/day - Anticoagulation on hold, see above. Volume overload. Appears multifactorial in etiology. Portable chest x-ray requested. Low threshold for low dose IV furosemide today. Aortic stenosis. Outpatient surveillance monitoring. Admission and Anticipated Discharge Date Admission Date: September 24, 2024 Supervising Physician Co-Signing Physician Notes Attending attestation: Case reviewed with the advanced practitioner. I have personally performed a history and physical examination on the patient. I have reviewed the advanced practitioner's documentation on the date of service referenced in note, and I agree with, and take responsibility for the plan of care. Edema noted. Concentrated/ perhaps blood tinged urine noted in Kumar catheter. Hold off on furosemide today , but would have low threshold tomorrow if BP stable then. Dagoberto Veloz, Subjective Patient seen and personally examined; chart, medications telemetry reviewed Complaints: Right leg pain. Having a hard time breathing and talking together. Bilateral lower extremity edema. No chest pain. No palpitations. No dizziness. No fevers or chills I/O's: + 5,169 mL's overall Hemoglobin 7.3 g/dL this morning Sodium down to 131 Creatinine mildly increased from 1.08 to 1.24 Review of Systems Review of Systems: See above Physical Exam Physical Exam: General: NAD. + Skin pallor HENT: Normocephalic. Atraumatic. Eyes: PER. Conjunctiva pink, sclera pale Neck: JVD. HJR. Heart: Regular at 80 bpm. Grade II/ systolic ejection murmur. No diastolic murmur. Lungs: Faint bibasilar rales. No wheeze. Abdomen: +BS. Soft. Nontender. No masses or organomegaly. Extremities: 1+ bilateral lower extremity edema. No clubbing. No cyanosis Limited neurological examination is without focal deficits. Pulses: Posterior tibial=1/4. Results & Data Vital Signs (Past 12 Hours) Vital Signs Temp Pulse Pulse Resp BP Pulse Ox O2 Del Method 09/27/24 07:31 86 09/27/24 07:12 36.4 C L 84 16 104/64 95 Room Air 09/27/24 03:29 36.5 C 76 22 101/60 96 Room Air 09/26/24 23:00 36.5 C 69 14 102/59 L 92 Room Air 09/26/24 23:00 69 Laboratory Results CBC 09/26/24 09/27/24 09/27/24 Range/Units 14:09 07:12 08:36 WBC Cancelled 10.88 H RBC Cancelled 2.48 L Hgb 8.9 L Cancelled 7.3 L (12.0-16.0) g/dl Hct 27.5 L Cancelled 22.8 L (37.0-47.0) % Plt Count Cancelled 112 L Neut # (Auto) Cancelled 9.16 H Lymph # (Auto) Cancelled 0.61 L [place] # (Auto) Cancelled 1.03 H Eos # (Auto) Cancelled 0.01 Baso # (Auto) Cancelled 0.02 Comprehensive Metabolic Panel 09/27/24 Range/Units 07:12 Sodium 131 L (136-145) mmol/L Potassium 4.2 D (3.5-5.1) mmol/L Chloride 105 (98-107) mmol/L Carbon Dioxide 18 L (21-32) mmol/L BUN 34 H (6-23) mg/dl Creatinine 1.24 H (0.6-1.2) mg/dl Glucose 53 L* (70-99(Fasting)) mg/dl Calcium 7.5 L (8.6-10.3) mg/dl Intake and Output 09/26/24 09/27/24 09/27/24 22:59 06:59 14:59 Intake Total 500 / 1540 350 / 1540 Output Total 215 / 465 250 / 465 Balance 285 / 1075 100 / 1075 Intake: Oral 500 / 1230 350 / 1230 Output: Urine Amount (Catheter) 215 / 465 250 / 465 Kumar/Indwelling 215 / 465 250 / 465 Other: Weight 84.907 kg Weight Measurement Method Built in [facility] Diagnostic Findings Telemetry: Sinus with PVCs, heart rates in the 80s September 25, 2024 TTE: Normal size LV. Moderate concentric LVH. Thickened and angulated basal septum, consistent with sigmoid septum. Normal LV wall motion. LVEF 55 to 60%. Moderately dilated left atrium. Moderately calcified aortic valve with mild to moderate aortic valve stenosis. Mild to moderate mitral regurgitation. Trace aortic regurgitation. Mild to moderate tricuspid regurgitation.
--- NOTE | 2024-09-27 13:10 | Hospitalist Progress Note ---
Date of Service September 27, 2024 Assessment & Plan (1) Intertrochanteric fracture of right hip: Plan: Postoperative day 1, patient clinically doing well, pain is well-controlled, follow with postop recommendation by orthopedics. PT and OT will evaluate the patient tomorrow. Status post long intramedullary nail right hip on 09/25/2024 Has been getting physical therapy and recommended short-term rehab Complains pain in the right hip which seems to be reasonably controlled (2) Hemorrhagic shock: Plan: Recent admission to the hospital from 07/19/2024 to 07/25/2024 due to acute blood loss anemia and required 3 units of PRBC Admitted with fall this time and noted to have A-fib with RVR and hypotension in the emergency room Likely went into hemorrhagic shock secondary to fall and right hip fracture and hemoglobin noted to be 6.3 during that time She received a total of 4 units of PRBC since 09/24/2024 and the hemoglobin is still low at 7.3 as of 09/27/2024 Given the cardiac history and continued weakness we will give another unit of blood transfusion today (3) Fall: Plan: The etiology of this is not quite known as this was not witnessed but does not appear to be syncopal. PT and OT evaluation tomorrow. (4) PAF (paroxysmal atrial fibrillation): Plan: Continue with amiodarone, aspirin, heart rate is generally stable. May resume anticoagulation later. Will start anticoagulation with improvement of physical weakness and physical therapy nothing about the blood loss anemia hemorrhagic shock and renal shock in this patient while cardiology mentioning that during fracture fall PA apartment Impression okay anemia Presentation 913 resumed Eliquis for was discharged disease got shot to the knee Continuing following Recurrent falls PAF present on her last laboratory data any apart Rate remains controlled on current medications including amiodarone and low-dose beta-alysia Blood pressure is maintaining at the lower side at 115/70 Hemoglobin is dropped to 7.3 Will give another unit of blood transfusion given cardiac status and weakness and also hemoglobin low at 7.3 (5) Hypothyroidism (acquired): Plan: Continue with Synthroid 150 mcg daily. (6) Mixed hyperlipidemia: Plan: Continue with Lipitor 40 mg daily. Plan Will transfuse 1 unit of PRBC, monitor H&H daily, PT and OT evaluation tomorrow. Admission and Anticipated Discharge Date Admission Date: September 24, 2024 Subjective 09/27/2024 The patient was seen and examined in telemetry unit She remains weak and lethargic and complains of pain in the right hip with movement of the right lower extremity Denies any chest pain, shortness of breath or palpitation Review of Systems Review of Systems: All systems reviewed and are unremarkable except as noted below Physical Exam Physical Exam: Lying in bed with some distress due to right hip pain and weakness Constitutional: + ill appearing and + obese Eyes: PERRL, conjunctivae normal, anicteric sclerae ENMT: external ear and nose normal, oropharynx normal Neck: trachea midline, no thyromegaly Respiratory: no respiratory distress Auscultation: lungs clear to auscultation bilaterally Cardiovascular: Rate/Rhythm: regular rate and regular rhythm; not tachycardic Heart Sounds: normal S1, normal S2 and + murmur (2/6 ESM over precordium) E xtremities: + edema (Trace edema bilaterally) Gastrointestinal (Abdomen): Inspection/Auscultation: normal bowel sounds; abdomen not distended Percussion/Palpation: abdomen soft; abdomen nontender Musculoskeletal: Pain mainly in right hip with movement of the right lower extremity Neurologic: normal touch/pain/proprioception, moves all extremities (Generally very weak and lethargic) and + focal motor deficit Lymphatic: no cervical or axillary lymphadenopathy Results & Data Results & Data Vital Signs (Past 12 Hours) Vital Signs Temp Pulse Pulse Resp BP Pulse Ox O2 Del Method 09/27/24 11:51 36.4 C L 86 18 115/70 95 Room Air 09/27/24 07:31 86 09/27/24 07:12 36.4 C L 84 16 104/64 95 Room Air 09/27/24 03:29 36.5 C 76 22 101/60 96 Room Air Laboratory Results Short CBC 09/26/24 09/27/24 09/27/24 Range/Units 14:09 07:12 08:36 WBC Cancelled 10.88 H Hgb 8.9 L Cancelled 7.3 L (12.0-16.0) g/dl Hct 27.5 L Cancelled 22.8 L (37.0-47.0) % Plt Count Cancelled 112 L BMP 09/27/24 07:12 Sodium 131 L Potassium 4.2 D Chloride 105 Carbon Dioxide 18 L BUN 34 H Creatinine 1.24 H Glucose 53 L* Calcium 7.5 L Medications Administered Current Inpatient Medications Acetaminophen (Acetaminophen 500 Mg Tab) 1,000 mg PO Q8H [facility] Stop: 10/24/24 21:05 Last Admin: 09/27/24 12:20 Dose: 1,000 mg Amiodarone HCl (Amiodarone 200 Mg Tab) 200 mg PO BIDM [facility] Stop: 10/25/24 16:59 Last Admin: 09/27/24 08:44 Dose: 200 mg Aspirin (Aspirin 81 Mg Ectab) [facility] Stop: 10/26/24 08:59 Last Admin: 09/27/24 08:44 Dose: 81 mg Atorvastatin Calcium (Atorvastatin 40 Mg Tab) 40 [facility] Stop: 10/26/24 08:59 Last Admin: 09/27/24 08:44 Dose: 40 mg Bisacodyl (Bisacodyl 10 Mg Supp) 10 mg [place] DAILY PRN PRN Reason: Constipation Stop: 10/24/24 21:05 Cyanocobalamin (Cyanocobalamin (B-12) 500 Mcg Tablet) 1,000 mcg [facility] Stop: 10/26/24 08:59 Last Admin: 09/27/24 08:44 Dose: 1,000 mcg Dextrose (Dextrose 50% 50 Ml Syringe) 25 - 50 ml IV UD PRN; Protocol PRN Reason: Hypoglycemia Protocol Stop: 10/24/24 21:55 Ferrous Sulfate (Ferrous Sulfate 325 Mg Tab) 325 mg PO BID [facility] Stop: 10/25/24 20:59 Last Admin: 09/27/24 08:44 Dose: 325 mg Glucagon (Glucagon For Inj 1 Mg Vial) 1 mg SQ UD PRN; Protocol PRN Reason: Hypoglycemia Protocol Stop: 10/24/24 21:55 Glucose (Glucose 40% Gel 15 Gm Tube) 15 - 30 gm PO UD PRN; Protocol PRN Reason: Hypoglycemia Protocol Stop: 10/24/24 21:55 Glucose (Glucose 10 Tab/Tube) 4 - 8 tab PO UD PRN; Protocol PRN Reason: Hypoglycemia Protocol Stop: 10/24/24 21:55 Insulin Aspart (Insulin Aspart Per Unit Charge) 0 units SC [facility] Stop: 10/25/24 00:00 Last Admin: 09/27/24 12:20 Dose: Not Given Levothyroxine Sodium (Levothyroxine Sodium 150 Mcg Tablet) [facility] Stop: 10/26/24 06:29 Last Admin: 09/27/24 06:07 Dose: 150 mcg Lidocaine (Lidocaine 5% 1 Patch) 1 patch TD DAILY [facility] Stop: 10/26/24 08:59 Last Admin: 09/27/24 08:43 Dose: 1 patch Lorazepam (Lorazepam 0.5 Mg Tab) 0.5 mg PO Q8 PRN PRN Reason: Anxiety Stop: 10/25/24 10:48 Last Admin: 09/26/24 20:27 Dose: 0.5 mg Magnesium Chloride (Magnesium Chloride W/Calcium 64mg Delayed Rel Tab) 64 mg PO BID [facility] Stop: 10/25/24 20:59 Last Admin: 09/27/24 08:44 Dose: 64 mg Magnesium Hydroxide (Magnesium Hydroxide Susp 30 Ml Udc) 30 ml PO Q12H PRN PRN Reason: Constipation Stop: 10/24/24 21:05 Metformin HCl (Metformin Hcl 500 Mg Tab) 1,000 mg PO BIDM [facility] Stop: 10/27/24 07:59 Last Admin: 09/27/24 09:14 Dose: Not Given Metoprolol Succinate (Metoprolol Succ 25mg Ext Rel Tab) 12.5 mg PO QAM [facility] Stop: 10/26/24 10:44 Last Admin: 09/27/24 08:44 Dose: 12.5 mg Miconazole Nitrate (Miconazole Nitrate Powder 85 Gm) 1 appln EXT PRN PRN PRN Reason: Affected Skin Folds Stop: 10/26/24 17:30 Last Admin: 09/26/24 20:33 Dose: 1 appln Miscellaneous (Carbohydrates For Hypoglycemia ) 15 - 30 gm PO UD PRN PRN Reason: Hypoglycemia Protocol Stop: 10/24/24 21:55 Morphine Sulfate (Morphine Sulfate 2 Mg/Ml Carp) 2 mg IV Q4H PRN PRN Reason: Severe Pain (Scale 7, 8, 9,10) Stop: 10/08/24 21:05 Last Admin: 09/27/24 06:08 Dose: 2 mg Naloxone HCl (Naloxone Hcl 0.4 Mg/1 Ml Vial/Carp) 0.1 mg IV UD PRN PRN Reason: Opiate Overdose Stop: 10/24/24 21:05 Ondansetron HCl (Ondansetron Inj 2 Mg/Ml 2 Ml Vial) 4 mg IV Q6H PRN PRN Reason: Nausea Stop: 10/24/24 21:05 Oxycodone HCl (Oxycodone Hcl Ir 5 Mg Tab (Immediate Release)) 5 mg PO Q6H PRN PRN Reason: Moderate Pain (Scale 4, 5, 6) Stop: 10/08/24 21:05 Last Admin: 09/25/24 01:41 Dose: 5 mg Oxycodone HCl (Oxycodone Hcl Ir 5 Mg Tab (Immediate Release)) 5 mg PO TID [facility] Stop: 10/09/24 13:59 Last Admin: 09/27/24 09:40 Dose: 5 mg Pantoprazole Sodium (Pantoprazole 40 Mg Tab) 40 mg PO BID [facility] Stop: 10/25/24 20:59 Last Admin: 09/27/24 08:44 Dose: 40 mg Polyethylene Glycol (Polyethylene (Miralax) 17 Gm Pack) 17 gm PO DAILY PRN PRN Reason: Constipation Stop: 10/24/24 21:05 Sertraline HCl (Sertraline Hcl 50 Mg Tablet) 25 mg PO QAM [facility] Stop: 10/26/24 08:59 Last Admin: 09/27/24 08:44 Dose: 25 mg Vitamin D (Cholecalciferol 125 Mcg (5,000 Units) Tab) 125 mcg PO QAM [facility] Stop: 10/26/24 08:59 Last Admin: 09/27/24 08:44 Dose: 125 mcg 7 (1) Intertrochanteric fracture of right hip Encounter type: initial encounter Fracture alignment: displaced Fracture type: closed Qualified Code(s): S72.141A - Displaced intertrochanteric fracture of right femur, initial encounter for closed fracture (3) Fall Encounter type: initial encounter Qualified Code(s): W19.XXXA - Unspecified fall, initial encounter
[2024-09-27] MEDS ORDERED: SODIUM CHLORIDE 0.9% 100 ML IV PRN (13:14)
[2024-09-27] MEDS ORDERED: SODIUM CHLORIDE 0.9% 50 ML IV PRN (13:14)
[2024-09-27] MEDS: CARBOHYDRATES FOR HYPOGLYCEMIA PO PRN (16:39)
[2024-09-28 09:03] LABS: Hematocrit (blood only) 24.2 % (37.0-47.0); Hemoglobin 7.8 g/dl (12.0-16.0); Mean Corpuscular Hemoglobin 28.9 pg (25.0-34.0); Mean Corpuscular Hgb Conc 32.2 g/dL (32.0-36.0); Mean Corpuscular Volume 89.6 fL (80.0-100.0); Mean Platelet Volume 11.5 fL (9.4-12.4); Platelet Count 96 K/uL (130-400); RDW Coefficient of Variation 17.4 % (11.5-14.5); RDW Standard Deviation 56.5 fL (36.4-46.3); White Blood Count 7.56 K/ul (4.8-10.8)
[2024-09-28 09:04] LABS: BUN Creatinine Ratio 30.5 (10-20); Calcium 7.7 mg/dl (8.6-10.3); Creatinine Clr Calc Pharmacy 52.5 ml/min; Phosphorus 2.8 mg/dl (2.5-4.9); Potassium 4.9 mmol/L (3.5-5.1)
[2024-09-28 09:09] LABS: Basophils # (auto) 0.04 K/uL (0.00-0.20); Basophils % (auto) 0.5 %; Eosinophils # (auto) 0.09 K/uL (0.00-0.50); Eosinophils % (auto) 1.2 %; Immature Granulocytes # (auto) 0.03 K/uL (0.01-0.20); Immature Granulocytes % (auto) 0.4 %; Lymphocytes # (auto) 0.94 K/uL (1.20-3.40); Lymphocytes % (auto) 12.4 %; Monocytes # (auto) 1.07 K/uL (0.11-0.59); Monocytes % (auto) 14.2 %; Neutrophils # (auto) 5.39 K/uL (1.40-6.50); Neutrophils % (auto) 71.3 %; Polychromasia 1+
--- NOTE | 2024-09-28 12:06 | Cardiology Progress Note ---
Date of Service September 28, 2024 Assessment & Plan (1) PAF (paroxysmal atrial fibrillation): (2) Atrial fibrillation with RVR: (3) Hemorrhagic shock: Plan Fragile 74-year-old female with dementia admitted following mechanical fall with subsequent hip fracture. Course complicated by hemorrhagic shock, blood loss anemia, hypotension, and paroxysmal atrial fibrillation. Patient converted to sinus rhythm with IV amiodarone. Echocardiogram with mild to moderate aortic stenosis, preserved LV systolic function, possible elevation in right heart pressures. Status post surgical hip repair by Dr. Lopez on 09/25/2024 without difficulty. Hemorrhagic shock with acute anemia superimposed on chronic anemia secondary to fall, hip fracture chronic anticoagulation. Status post 4 U pRBC's this admission Hemoglobin 7.8 this AM- stable compared to yesterday. Ultimately would like to resume anticoagulation with apixaban once gait and hemodynamic stability assured. Continue to hold Eliquis Poorly tolerated paroxysmal atrial fibrillation, with known prior history. - Continue oral amiodarone for at least 30-days - Continue low-dose beta-alysia, metoprolol succinate 12.5 mg/day. [employer] verapamil remains on hold -LFTs within normal limits earlier this stay. Check TSH given amiodarone therapy. - Anticoagulation on hold, see above. - proceed with furosemide 20 mg IV x 1 for acute on chronic edema. Aortic stenosis. Outpatient surveillance monitoring. Admission and Anticipated Discharge Date Admission Date: September 24, 2024 Subjective Pt seen in cardiology follow up. She is out of bed and sitting in beside chair eating lunch. No acute cardiac complaints. Appears stronger than yesterday. SR with rates in the 60s noted on telemetry. Physical Exam Constitutional: WD/WN, vitals as above + thin and + frail appearing; no acute distress Eyes: PERRL, conjunctivae normal, anicteric sclerae ENMT: external ear and nose normal, oropharynx normal Neck: trachea midline, no thyromegaly Respiratory: normal respiratory effort, lungs clear to auscultation Cardiovascular: Rate/Rhythm: regular rate, regular rhythm and + bradycardic Heart Sounds: + murmur (Grade 2 over 6 systolic murmur) Vessels: no JVD Extremities: + edema (1+ bilateral LE edema ) Gastrointestinal (Abdomen): normal bowel sounds, soft, nontender, no hepatosplenomegaly Musculoskeletal: no cyanosis or clubbing, extremities motor strength 5/5 Ankle: + surgical drain present Genitourinary: Kumar catheter in place draining clear yellow urine. Results & Data Vital Signs (Past 12 Hours) Vital Signs Temp Pulse Pulse Resp BP Pulse Ox O2 Del Method 09/28/24 08:00 69 09/28/24 07:24 36.7 C 60 18 101/59 L 97 Room Air 09/28/24 02:37 36.8 C 86 18 132/70 94 Room Air Diagnostic Findings CBC 09/28/24 Range/Units 07:50 WBC 7.56 (4.8-10.8) K/ul RBC 2.70 L (4.20-5.40) M/uL Hgb 7.8 L (12.0-16.0) g/dl Hct 24.2 L (37.0-47.0) % Plt Count 96 L (130-400) K/uL Neut # (Auto) 5.39 (1.40-6.50) K/uL Lymph # (Auto) 0.94 L (1.20-3.40) K/uL Orange # (Auto) 1.07 H (0.11-0.59) K/uL Eos # (Auto) 0.09 (0.00-0.50) K/uL Baso # (Auto) 0.04 (0.00-0.20) K/uL Comprehensive Metabolic Panel 09/28/24 Range/Units 07:50 Sodium 130 L (136-145) mmol/L Potassium 4.9 (3.5-5.1) mmol/L Chloride 105 (98-107) mmol/L Carbon Dioxide 21 (21-32) mmol/L BUN 29 H (6-23) mg/dl Creatinine 0.95 (0.6-1.2) mg/dl Glucose 164 H (70-99(Fasting)) mg/dl Calcium 7.7 L (8.6-10.3) mg/dl Intake and Output 09/27/24 09/28/24 09/28/24 22:59 06:59 14:59 Intake Total 430 / 750 Output Total 550 / 1750 850 / 1750 Balance -120 / -1000 -850 / -1000 Intake: Oral 120 / 440 Intake (Blood Product) Amt 310 / 310 Packed Cells, Leukoreduced 310 / 310 Unit [id number] Output: Urine Amount (Catheter) 550 / 1400 850 / 1400 Kumar/Indwelling 550 / 1400 850 / 1400 Other: Other Intake Source sips Weight 83.8 kg
[2024-09-28 13:03] LABS: Thyroid Stimulating Hormone 15.074 uIu/ml (0.300-4.500)
[2024-09-28] MEDS: FUROSEMIDE INJ 20 MG/2 ML VIAL IV ONE (13:06)
--- NOTE | 2024-09-28 13:39 | Electrocardiogram Report ---
Test Reason : Blood Pressure : */* mmHG Vent. 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
[2024-09-28 13:40] LABS: T4 Free Thyroxine 1.06 ng/dl (0.61-1.60)
--- NOTE | 2024-09-28 14:30 | Hospitalist Progress Note ---
Date of Service September 28, 2024 Assessment & Plan (1) Intertrochanteric fracture of right hip: Plan: Postoperative day 1, patient clinically doing well, pain is well-controlled, follow with postop recommendation by orthopedics. PT and OT will evaluate the patient tomorrow. Status post long intramedullary nail right hip on 09/25/2024 Has been getting physical therapy and recommended short-term rehab Complains pain in the right hip which seems to be reasonably controlled Much better today and will continue current pain medications Has had physical therapy reevaluation today -09/28/2024 and recommended rehab (2) Hemorrhagic shock: Plan: Recent admission to the hospital from 07/19/2024 to 07/25/2024 due to acute blood loss anemia and required 3 units of PRBC Admitted with fall this time and noted to have A-fib with RVR and hypotension in the emergency room Likely went into hemorrhagic shock secondary to fall and right hip fracture and hemoglobin noted to be 6.3 during that time She received a total of 4 units of PRBC since 09/24/2024 and the hemoglobin is still low at 7.3 as of 09/27/2024 Given the cardiac history and continued weakness we will give another unit of blood transfusion today blood pressure is maintained and remains hemodynamically stable (3) Fall: Plan: The etiology of this is not quite known as this was not witnessed but does not appear to be syncopal. PT and OT evaluation tomorrow. (4) PAF (paroxysmal atrial fibrillation): Plan: Continue with amiodarone, aspirin, heart rate is generally stable. May resume anticoagulation later. Will start anticoagulation with improvement of physical weakness and physical therapy nothing about the blood loss anemia hemorrhagic shock and renal shock in this patient while cardiology mentioning that during fracture fall PA apartment Impression okay anemia Presentation 913 resumed Eliquis for was discharged disease got shot to the knee Continuing following Recurrent falls PAF present on her last laboratory data any apart Rate remains controlled on current medications including amiodarone and low-dose beta-alysia Blood pressure is maintaining at the lower side at 115/70 Hemoglobin is dropped to 7.3 Will give another unit of blood transfusion given cardiac status and weakness and also hemoglobin low at 7.3 No cardiac symptoms and the rate is controlled (5) Hypothyroidism (acquired): Plan: Continue with Synthroid 150 mcg daily. (6) Mixed hyperlipidemia: Plan: Continue with Lipitor 40 mg daily. Plan Will transfuse 1 unit of PRBC, monitor H&H daily, PT and OT evaluation tomorrow. Has had PT evaluation and recommended placement Admission and Anticipated Discharge Date Admission Date: September 24, 2024 Subjective 09/27/2024 The patient was seen and examined in telemetry unit She remains weak and lethargic and complains of pain in the right hip with movement of the right lower extremity Denies any chest pain, shortness of breath or palpitation 09/28/2024 The patient was seen and examined in telemetry unit She is much better today following 1 unit of blood transfusion yesterday Heart pain seems to be reasonably controlled and weakness has improved Has been getting physical therapy and awaiting placement may need Review of Systems Review of Systems: All systems reviewed and are unremarkable except as noted below Physical Exam Physical Exam: Lying in bed with some distress due to right hip pain and weakness Constitutional: + ill appearing and + obese Eyes: PERRL, conjunctivae normal, anicteric sclerae ENMT: external ear and nose normal, oropharynx normal Neck: trachea midline, no thyromegaly Respiratory: no respiratory distress Auscultation: lungs clear to auscultation bilaterally Cardiovascular: Rate/Rhythm: regular rate and regular rhythm; not tachycardic Heart Sounds: normal S1, normal S2 and + murmur (2/6 ESM over precordium) Extremities: + edema (Trace edema bilaterally) Gastrointestinal (Abdomen): Inspection/Auscultation: normal bowel sounds; abdomen not distended Percussion/Palpation: abdomen soft; abdomen nontender Musculoskeletal: Moderate pain with movement of the right Neurologic: normal touch/pain/proprioception, moves all extremities (Generally very weak and lethargic) and + focal motor deficit Lymphatic: no cervical or axillary lymphadenopathy Results & Data Results & Data Vital Signs (Past 12 Hours) Vital Signs Temp Pulse Pulse Resp BP Pulse Ox O2 Del Method 09/28/24 14:11 62 09/28/24 12:02 36.8 C 67 18 125/68 98 Room Air 09/28/24 08:00 69 09/28/24 07:24 36.7 C 60 18 101/59 L 97 Room Air 09/28/24 02:37 36.8 C 86 18 132/70 94 Room Air Laboratory Results Short CBC 09/28/24 Range/Units 07:50 WBC 7.56 (4.8-10.8) K/ul Hgb 7.8 L (12.0-16.0) g/dl Hct 24.2 L (37.0-47.0) % Plt Count 96 L (130-400) K/uL [facility] 09/28/24 07:50 Sodium 130 L Potassium 4.9 Chloride 105 Carbon Dioxide 21 BUN 29 H Creatinine 0.95 Glucose 164 H Calcium 7.7 L Medications Administered Current Inpatient Medications Acetaminophen (Acetaminophen 500 Mg Tab) 1,000 mg PO Q8H [facility] Stop: 10/24/24 21:05 Last Admin: 09/28/24 13:06 Dose: 1,000 mg Amiodarone HCl (Amiodarone 200 Mg Tab) 200 mg PO BIDM [facility] Stop: 10/25/24 16:59 Last Admin: 09/28/24 08:12 Dose: 200 mg Aspirin (Aspirin 81 Mg Ectab) [facility] Stop: 10/26/24 08:59 Last Admin: 09/28/24 08:12 Dose: 81 mg Atorvastatin Calcium (Atorvastatin 40 Mg Tab) 40 [facility] [place] Stop: 10/26/24 08:59 Last Admin: 09/28/24 08:13 Dose: 40 mg Bisacodyl (Bisacodyl 10 Mg Supp) 10 mg [place] DAILY PRN PRN Reason: Constipation Stop: 10/24/24 21:05 Cyanocobalamin (Cyanocobalamin (B-12) 500 Mcg Tablet) 1,000 mcg PO QAM [facility] Stop: 10/26/24 08:59 Last Admin: 09/28/24 08:12 Dose: 1,000 mcg Dextrose (Dextrose 50% 50 Ml Syringe) 25 - 50 ml IV UD PRN; Protocol PRN Reason: Hypoglycemia Protocol Stop: 10/24/24 21:55 Ferrous Sulfate (Ferrous Sulfate 325 Mg Tab) 325 mg PO BID [facility] Stop: 10/25/24 20:59 Last Admin: 09/28/24 08:13 Dose: 325 mg Glucagon (Glucagon For Inj 1 Mg Vial) 1 mg SQ UD PRN; Protocol PRN Reason: Hypoglycemia Protocol Stop: 10/24/24 21:55 Glucose (Glucose 40% Gel 15 Gm Tube) 15 - 30 gm PO UD PRN; Protocol PRN Reason: Hypoglycemia Protocol Stop: 10/24/24 21:55 Glucose (Glucose 10 Tab/Tube) 4 - 8 tab PO UD PRN; Protocol PRN Reason: Hypoglycemia Protocol Stop: 10/24/24 21:55 Insulin Aspart (Insulin Aspart Per Unit Charge) 0 units SC ACHS [facility] Stop: 10/25/24 00:00 Last Admin: 09/27/24 16:50 Dose: Not Given Levothyroxine Sodium (Levothyroxine Sodium 150 Mcg Tablet) 150 mcg PO DAILYBB [facility] Stop: 10/26/24 06:29 Last Admin: 09/28/24 05:38 Dose: 150 mcg Lidocaine (Lidocaine 5% 1 Patch) 1 patch TD DAILY [facility] Stop: 10/26/24 08:59 Last Admin: 09/28/24 08:18 Dose: Not Given Lorazepam (Lorazepam 0.5 Mg Tab) 0.5 mg PO Q8 PRN PRN Reason: Anxiety Stop: 10/25/24 10:48 Last Admin: 09/27/24 20:22 Dose: 0.5 mg Magnesium Chloride (Magnesium Chloride W/Calcium 64mg Delayed Rel Tab) 64 mg PO BID [facility] Stop: 10/25/24 20:59 Last Admin: 09/28/24 08:12 Dose: 64 mg Magnesium Hydroxide (Magnesium Hydroxide Susp 30 Ml Udc) 30 ml PO Q12H PRN PRN Reason: Constipation Stop: 10/24/24 21:05 Metformin HCl (Metformin Hcl 500 Mg Tab) 1,000 mg PO BIDM [facility] Stop: 10/27/24 07:59 Last Admin: 09/28/24 08:12 Dose: 1,000 mg Metoprolol Succinate (Metoprolol Succ 25mg Ext Rel Tab) 12.5 mg PO QAM [facility] Stop: 10/26/24 10:44 Last Admin: 09/28/24 08:17 Dose: 12.5 mg Miconazole Nitrate (Miconazole Nitrate Powder 85 Gm) 1 appln EXT PRN PRN PRN Reason: Affected Skin Folds Stop: 10/26/24 17:30 Last Admin: 09/26/24 20:33 Dose: 1 appln Miscellaneous (Carbohydrates For Hypoglycemia ) 15 - 30 gm PO UD PRN PRN Reason: Hypoglycemia Protocol Stop: 10/24/24 21:55 Last Admin: 09/27/24 16:39 Dose: 30 gm Morphine Sulfate (Morphine Sulfate 2 Mg/Ml Carp) 2 mg IV Q4H PRN PRN Reason: Severe Pain (Scale 7, 8, 9,10) Stop: 10/08/24 21:05 Last Admin: 09/28/24 11:38 Dose: 2 mg Naloxone HCl (Naloxone Hcl 0.4 Mg/1 Ml Vial/Carp) 0.1 mg IV UD PRN PRN Reason: Opiate Overdose Stop: 10/24/24 21:05 Ondansetron HCl (Ondansetron Inj 2 Mg/Ml 2 Ml Vial) 4 mg IV Q6H PRN PRN Reason: Nausea Stop: 10/24/24 21:05 Oxycodone HCl (Oxycodone Hcl Ir 5 Mg Tab (Immediate Release)) 5 mg PO Q6H PRN PRN Reason: Moderate Pain (Scale 4, 5, 6) Stop: 10/08/24 21:05 Last Admin: 09/25/24 01:41 Dose: 5 mg Oxycodone HCl (Oxycodone Hcl Ir 5 Mg Tab (Immediate Release)) 5 mg PO TID [facility] Stop: 10/09/24 13:59 Last Admin: 09/28/24 13:06 Dose: 5 mg Pantoprazole Sodium (Pantoprazole 40 Mg Tab) 40 mg PO BID [facility] Stop: 10/25/24 20:59 Last Admin: 09/28/24 08:11 Dose: 40 mg Polyethylene Glycol (Polyethylene (Miralax) 17 Gm Pack) 17 gm PO DAILY PRN PRN Reason: Constipation Stop: 10/24/24 21:05 Sertraline HCl (Sertraline Hcl 50 Mg Tablet) 25 mg PO QAM [facility] Stop: 10/26/24 08:59 Last Admin: 09/28/24 08:13 Dose: 25 mg Vitamin D (Cholecalciferol 125 Mcg (5,000 Units) Tab) 125 mcg PO QAM [facility] Stop: 10/26/24 08:59 Last Admin: 09/28/24 08:13 Dose: 125 mcg Seen (1) Intertrochanteric fracture of right hip Encounter type: initial encounter Fracture type: closed Fracture alignment: displaced Qualified Code(s): S72.141A - Displaced intertrochanteric fracture of right femur, initial encounter for closed fracture (3) Fall Encounter type: initial encounter Qualified Code(s): W19.XXXA - Unspecified fall, initial encounter
[2024-09-29 08:14] LABS: Basophils # (auto) 0.05 K/uL (0.00-0.20); Basophils % (auto) 0.6 %; Eosinophils # (auto) 0.11 K/uL (0.00-0.50); Eosinophils % (auto) 1.4 %; Hematocrit (blood only) 23.8 % (37.0-47.0); Hemoglobin 7.6 g/dl (12.0-16.0); Immature Granulocytes # (auto) 0.07 K/uL (0.01-0.20); Immature Granulocytes % (auto) 0.9 %; Lymphocytes % (auto) 15.1 %; Mean Corpuscular Hgb Conc 31.9 g/dL (32.0-36.0); Mean Corpuscular Volume 90.8 fL (80.0-100.0); Mean Platelet Volume 11.1 fL (9.4-12.4); Monocytes % (auto) 12.6 %; Neutrophils # (auto) 5.53 K/uL (1.40-6.50); Neutrophils % (auto) 69.4 %; Platelet Count 108 K/uL (130-400); RDW Coefficient of Variation 16.9 % (11.5-14.5); RDW Standard Deviation 54.4 fL (36.4-46.3); Red Blood Count 2.62 M/uL (4.20-5.40); White Blood Count 7.96 K/ul (4.8-10.8)
[2024-09-29 08:29] LABS: BUN Creatinine Ratio 31.8 (10-20); Calcium 7.8 mg/dl (8.6-10.3); Creatinine Clr Calc Pharmacy 58.6 ml/min; Magnesium 1.8 mg/dl (1.7-2.4); Potassium 4.6 mmol/L (3.5-5.1)
[2024-09-29 08:38] LABS: Polychromasia 1+
--- NOTE | 2024-09-29 10:56 | Cardiology Progress Note ---
Date of Service September 29, 2024 Assessment & Plan (1) PAF (paroxysmal atrial fibrillation): (2) Atrial fibrillation with RVR: (3) Hemorrhagic shock: Plan 09/28/24: Fragile 74-year-old female with dementia admitted following mechanical fall with subsequent hip fracture. Course complicated by hemorrhagic shock, blood loss anemia, hypotension, and paroxysmal atrial fibrillation. Patient converted to sinus rhythm with IV amiodarone. Echocardiogram with mild to moderate aortic stenosis, preserved LV systolic function, possible elevation in right heart pressures. Status post surgical hip repair by Dr. Lopez on 09/25/2024 without difficulty. Hemorrhagic shock with acute anemia superimposed on chronic anemia secondary to fall, hip fracture chronic anticoagulation. Status post 4 U pRBC's this admission Hemoglobin 7.8 this AM- stable compared to yesterday. Ultimately would like to resume anticoagulation with apixaban once gait and hemodynamic stability assured. Continue to hold Eliquis Poorly tolerated paroxysmal atrial fibrillation, with known prior history. - Continue oral amiodarone for at least 30-days - Continue low-dose beta-alysia, metoprolol succinate 12.5 mg/day. [employer] verapamil remains on hold -LFTs within normal limits earlier this stay. Check TSH given amiodarone therapy. - Anticoagulation on hold, see above. - proceed with furosemide 20 mg IV x 1 for acute on chronic edema. Aortic stenosis. Outpatient surveillance monitoring. 09/29: Patient resting comfortably. Remains in NSR. Continue amiodarone and metoprolol. She remains anemic with hbg 7.6, stable despite receiving additional dose of packed RBC's yesterday. Continue to hold anticoagulation therapy. Ongoing LE edema noted b/l. Repeat IV lasix 20 mg daily today. Sodium levels improved yesterday with diuresis. Monitor renal function, electrolytes. TSH is elevated, normal T4. Consider dose adjustment of her levothyroxine. Monitor with amiodarone. Case discussed with Dr. Veloz I spent a total of 30 minutes on the date of service in preparation, delivery, and documentation of the care provided to this patient, excluding any time spent in the performance of separately billed services. Vanesa Robins PA-C Department of Cardiology, [facility] This chart was completed in part utilizing Speech Voice Recognition Software. Grammatical errors, random word insertions, pronoun errors, and incomplete sentences are an occasional consequence of this system due to software limitations, ambient noise, and hardware issues. Any formal questions or concerns about the content, text, or information contained within the body of this dictation should be directly addressed to the provider for clarification. Admission and Anticipated Discharge Date Admission Date: September 24, 2024 Supervising Physician Co-Signing Physician Notes Attending attestation: Case reviewed with the advanced practitioner. I have personally performed a history and physical examination on the patient. I have reviewed the advanced practitioner's documentation on the date of service referenced in note, and I agree with, and take responsibility for the plan of care. Dagoberto Veloz, DO Subjective Patient resting in bed. Denies acute complaints. No complaints of chest pain or shortness of breath. No cough. No orthopnea, PND. Has 1-2+ LE edema. No dizziness or palpitations. Remains in NSR Review of Systems Review of Systems: All systems reviewed & are unremarkable except as noted in HPI & below Physical Exam Constitutional: WD/WN, vitals as above + thin and + frail appearing; no acute distress Eyes: PERRL, conjunctivae normal, anicteric sclerae Respiratory: normal respiratory effort, lungs clear to auscultation Cardiovascular: Rate/Rhythm: regular rate, regular rhythm and + bradycardic Heart Sounds: + murmur (Grade 2 over 6 systolic murmur) Vessels: no JVD Extremities: + edema (1-2+ bilateral LE edema ) Gastrointestinal (Abdomen): normal bowel sounds, soft, nontender, no hepatosplenomegaly Musculoskeletal: no cyanosis or clubbing, extremities motor strength 5/5 Neurologic: PERRL, EOMI, accommodation nl, no face palsy, no dysarthria Psychiatric: A+Ox3, euthymic affect Results & Data Vital Signs (Past 12 Hours) Vital Signs Temp Pulse Pulse Resp BP Pulse Ox O2 Del Method 09/29/24 07:48 36.5 C 66 18 133/62 98 Room Air 09/29/24 07:23 59 L 09/29/24 02:47 36.6 C 63 16 111/64 99 Room Air 09/28/24 23:00 66 09/28/24 22:53 36.9 C 64 21 121/65 99 Room Air Laboratory Results CBC 09/29/24 Range/Units 07:38 WBC 7.96 (4.8-10.8) K/ul RBC 2.62 L (4.20-5.40) M/uL Hgb 7.6 L (12.0-16.0) g/dl Hct 23.8 L (37.0-47.0) % Plt Count 108 L (130-400) K/uL Neut # (Auto) 5.53 (1.40-6.50) K/uL Lymph # (Auto) 1.20 (1.20-3.40) K/uL Cotton # (Auto) 1.00 H (0.11-0.59) K/uL Eos # (Auto) 0.11 (0.00-0.50) K/uL Baso # (Auto) 0.05 (0.00-0.20) K/uL Comprehensive Metabolic Panel 09/29/24 Range/Units 07:38 Sodium 132 L (136-145) mmol/L Potassium 4.6 (3.5-5.1) mmol/L Chloride 106 (98-107) mmol/L Carbon Dioxide 23 (21-32) mmol/L BUN 27 H (6-23) mg/dl Creatinine 0.85 (0.6-1.2) mg/dl Glucose 124 H (70-99(Fasting)) mg/dl Calcium 7.8 L (8.6-10.3) mg/dl Intake and Output 09/28/24 09/29/24 09/29/24 22:59 06:59 14:59 Intake Total 300 / 1240 400 / 1240 Output Total 1900 / 3350 750 / 3350 Balance -1600 / -2110 -350 / -2110 Intake: Oral 300 / 1240 400 / 1240 Output: Urine Amount (Catheter) 1900 / 3350 750 / 3350 Kumar/Indwelling 1900 / 3350 750 / 3350 Other: Weight 83.6 kg Weight Measurement Method Built in [facility] Diagnostic Findings Telemetry reviewed: NSR in the 60's Medications Administered Current Inpatient Medications Acetaminophen (Acetaminophen 500 Mg Tab) 1,000 mg PO Q8H [facility] Stop: 10/24/24 21:05 Last Admin: 09/29/24 05:48 Dose: 1,000 mg Amiodarone HCl (Amiodarone 200 Mg Tab) 200 mg PO BIDM [facility] Stop: 10/25/24 16:59 Last Admin: 09/29/24 08:24 Dose: 200 mg Aspirin (Aspirin 81 Mg Ectab) 81 mg PO QAM [facility] Stop: 10/26/24 08:59 Last Admin: 09/29/24 08:23 Dose: 81 mg Atorvastatin Calcium (Atorvastatin 40 Mg Tab) 40 mg PO QAM [facility] Stop: 10/26/24 08:59 Last Admin: 09/29/24 08:24 Dose: 40 mg Bisacodyl (Bisacodyl 10 Mg Supp) 10 mg VA DAILY PRN PRN Reason: Constipation Stop: 10/24/24 21:05 Cyanocobalamin (Cyanocobalamin (B-12) 500 Mcg Tablet) 1,000 mcg PO QAM [facility] Stop: 10/26/24 08:59 Last Admin: 09/29/24 08:23 Dose: 1,000 mcg Dextrose (Dextrose 50% 50 Ml Syringe) 25 - 50 ml IV UD PRN; Protocol PRN Reason: Hypoglycemia Protocol Stop: 10/24/24 21:55 Ferrous Sulfate (Ferrous Sulfate 325 Mg Tab) 325 mg PO BID [facility] Stop: 10/25/24 20:59 Last Admin: 09/29/24 08:24 Dose: 325 mg Glucagon (Glucagon For Inj 1 Mg Vial) 1 mg SQ UD PRN; Protocol PRN Reason: Hypoglycemia Protocol Stop: 10/24/24 21:55 Glucose (Glucose 40% Gel 15 Gm Tube) 15 - 30 gm PO UD PRN; Protocol PRN Reason: Hypoglycemia Protocol Stop: 10/24/24 21:55 Glucose (Glucose 10 Tab/Tube) 4 - 8 tab PO UD PRN; Protocol PRN Reason: Hypoglycemia Protocol Stop: 10/24/24 21:55 Insulin Aspart (Insulin Aspart Per Unit Charge) 0 units SC ACHS [facility] Stop: 10/25/24 00:00 Last Admin: 09/29/24 08:30 Dose: 4 units Levothyroxine Sodium (Levothyroxine Sodium 150 Mcg Tablet) 150 mcg PO DAILYBB [facility] Stop: 10/26/24 06:29 Last Admin: 09/29/24 05:48 Dose: 150 mcg Lidocaine (Lidocaine 5% 1 Patch) 1 patch TD DAILY [facility] Stop: 10/26/24 08:59 Last Admin: 09/29/24 08:31 Dose: Not Given Lorazepam (Lorazepam 0.5 Mg Tab) 0.5 mg PO Q8 PRN PRN Reason: Anxiety Stop: 10/25/24 10:48 Last Admin: 09/28/24 20:08 Dose: 0.5 mg Magnesium Chloride (Magnesium Chloride W/Calcium 64mg Delayed Rel Tab) 64 mg PO BID [facility] Stop: 10/25/24 20:59 Last Admin: 09/29/24 08:24 Dose: 64 mg Magnesium Hydroxide (Magnesium Hydroxide Susp 30 Ml Udc) 30 ml PO Q12H PRN PRN Reason: Constipation Stop: 10/24/24 21:05 Metformin HCl (Metformin Hcl 500 Mg Tab) [facility] [place] Stop: 10/27/24 07:59 Last Admin: 09/29/24 08:23 Dose: 1,000 mg Metoprolol Succinate (Metoprolol Succ 25mg Ext Rel Tab) [facility] [place] Stop: 10/26/24 10:44 Last Admin: 09/29/24 08:24 Dose: 12.5 mg Miconazole Nitrate (Miconazole Nitrate Powder 85 Gm) 1 appln EXT PRN PRN PRN Reason: Affected Skin Folds Stop: 10/26/24 17:30 Last Admin: 09/28/24 20:08 Dose: 1 appln Miscellaneous (Carbohydrates For Hypoglycemia ) 15 - 30 gm PO UD PRN PRN Reason: Hypoglycemia Protocol Stop: 10/24/24 21:55 Last Admin: 09/27/24 16:39 Dose: 30 gm Morphine Sulfate (Morphine Sulfate 2 Mg/Ml Carp) 2 mg IV Q4H PRN PRN Reason: Severe Pain (Scale 7, 8, 9,10) Stop: 10/08/24 21:05 Last Admin: 09/28/24 11:38 Dose: 2 mg Naloxone HCl (Naloxone Hcl 0.4 Mg/1 Ml Vial/Carp) 0.1 mg IV UD PRN PRN Reason: Opiate Overdose Stop: 10/24/24 21:05 Ondansetron HCl (Ondansetron Inj 2 Mg/Ml 2 Ml Vial) 4 mg IV Q6H PRN PRN Reason: Nausea Stop: 10/24/24 21:05 Oxycodone HCl (Oxycodone Hcl Ir 5 Mg Tab (Immediate Release)) 5 mg PO Q6H PRN PRN Reason: Moderate Pain (Scale 4, 5, 6) Stop: 10/08/24 21:05 Last Admin: 12/07/24 01:41 Dose: 5 mg Oxycodone HCl (Oxycodone Hcl Ir 5 Mg Tab (Immediate Release)) 5 mg PO TID [facility] Stop: 10/09/24 13:59 Last Admin: 09/29/24 08:31 Dose: 5 mg Pantoprazole Sodium (Pantoprazole 40 Mg Tab) 40 mg PO BID [facility] Stop: 10/25/24 20:59 Last Admin: 09/29/24 08:23 Dose: 40 mg Polyethylene Glycol (Polyethylene (Miralax) 17 Gm Pack) 17 gm PO DAILY PRN PRN Reason: Constipation Stop: 10/24/24 21:05 Sertraline HCl (Sertraline Hcl 50 Mg Tablet) [facility] [place] Stop: 10/26/24 08:59 Last Admin: 09/29/24 08:24 Dose: 25 mg Vitamin D (Cholecalciferol 125 Mcg (5,000 Units) Tab) 125 [facility] [place] Stop: 10/26/24 08:59 Last Admin: 09/29/24 08:24 Dose: 125 mcg
[2024-09-29] MEDS: FUROSEMIDE INJ 20 MG/2 ML VIAL IV ONE (11:35)
[2024-09-29 11:51] LABS: Appearance Urine Clear (Clear); Bacteria Urine Automated None Seen (None Seen); Bilirubin Urine Negative (Negative); Blood Urine 3+ (Negative); Cast Urine Automated 0-2 /lpf (0-2); Color Urine Yellow; Epithelial Cell Urine Auto 0-2 /hpf (0-2); Glucose Urine UA Negative (Negative); Ketones Urine Negative (Negative); Leukocyte Esterase Urine Trace (Negative); Nitrite Urine Negative (Negative); Protein Urine Negative (Negative); Specific Gravity Urine 1.007 (1.000-1.030); Urobilinogen Urine Negative (Negative); WBC Urine Automated 0-5 /hpf (0-5); pH Urine 5.5 (4.5-7.5)
--- NOTE | 2024-09-29 16:27 | Hospitalist Progress Note ---
Date of Service September 29, 2024 Assessment & Plan (1) Intertrochanteric fracture of right hip: Plan 74-year-old female with PMH of paroxysmal A-fib on Eliquis, HTN, HLD, hypothyroidism, TIA, breast cancer presented to the ED 09/24 after fall and right hip pain. Patient noted to have right hip fracture. Patient not aware how she fell, per daughter patient often does not remember things and reports forgetfulness at baseline. She is being managed for the following: Intertrochanteric fracture of right hip: Status post long intramedullary nail right hip on 09/25/2024 Ortho evaluated, [facility], follow-up with Ortho in 1 to 2 weeks time upon alejandra bardales. Continue with pain control, PT/OT, PT OT recommends rehab. Hemorrhagic shock Recent admission to the hospital from 07/19/2024 to 07/25/2024 due to acute blood loss anemia and required 3 units of PRBC After presentation, her hemoglobin dropped to 6.3, likely went into hemorrhagic shock secondary to fall and right hip fracture. She received total of 5 units PRBC since admission, hemoglobin is still low at 7.6. Monitor H&H twice a day or as needed. Transfuse PRBC for hemoglobin less than 7.5 or for symptomatic anemia. Anticoagulation has not been able to be restarted. Eliquis on hold. Plan to resume anticoagulation with apixaban once gait and hemodynamic stability assured. Fall: The etiology of this is not quite known as this was not witnessed but does not appear to be syncopal. PT and OT evaled -- recs is rehab. PAF (paroxysmal atrial fibrillation): Continue with amiodarone, aspirin, metoprolol Cardiology on board, appreciate recommendation. Anticoagulation concerns, see above. Hypothyroidism (acquired): Continue with Synthroid 150 mcg daily. Mixed hyperlipidemia: Continue with Lipitor 40 mg daily. Dispo: CM working on disposition. Admission and Anticipated Discharge Date Admission Date: September 24, 2024 Subjective Patient was seen and examined at bedside. Patient was lying in bed, on room air, NAD, resting comfortably. Patient reports eating okay and moving bowels okay, denies any new acute event overnight. Urine in the bag looks dark, slight pinkish hue, concern for hematuria, urinalysis sent. Patient denies chest pain or shortness of breath. Physical Exam Physical Exam: GENERAL: Alert and oriented x3. NAD, on RA. Obese class I. appears weak/frail. HEENT: No pallor, no icterus. Pupils equal, round and reactive to light. Oral mucosa moist. NECK: No JVD, no neck masses. HEART: S1 and S2 heard. Regular rate and rhythm. + murmur, no gallop. RESPIRATORY SYSTEM: Normal AP diameter. No accessory muscle use. No wheezing, no crackles. ABDOMEN: Soft, bowel sounds present, nontender, no distention. CENTRAL NERVOUS SYSTEM: No facial droop. Speech is clear. Obeys simple commands. Moves extremities. EXTREMITIES: 1+ ble edema, no erythema seen. UC w/ dark urine in urinary bag. Results & Data Results & Data Vital Signs (Past 12 Hours) Vital Signs Temp Pulse Pulse Resp BP Pulse Ox O2 Del Method 09/29/24 15:15 36.7 C 61 18 119/65 99 Room Air 09/29/24 14:17 63 09/29/24 07:48 36.5 C 66 18 133/62 98 Room Air 09/29/24 07:23 59 L (1) Intertrochanteric fracture of right hip Encounter type: initial encounter Fracture type: closed Fracture alignment: displaced Qualified Code(s): S72.141A - Displaced intertrochanteric fracture of right femur, initial encounter for closed fracture
[2024-09-30 07:07] VITALS: RESP 18
[2024-09-30 07:39] LABS: Hematocrit (blood only) 23.4 % (37.0-47.0); Hemoglobin 7.5 g/dl (12.0-16.0); Mean Corpuscular Hemoglobin 29.5 pg (25.0-34.0); Mean Corpuscular Hgb Conc 32.1 g/dL (32.0-36.0); Mean Corpuscular Volume 92.1 fL (80.0-100.0); Mean Platelet Volume 10.6 fL (9.4-12.4); Platelet Count 141 K/uL (130-400); RDW Coefficient of Variation 16.6 % (11.5-14.5); RDW Standard Deviation 54.2 fL (36.4-46.3); Red Blood Count 2.54 M/uL (4.20-5.40)
[2024-09-30 07:49] LABS: BUN Creatinine Ratio 37.1 (10-20); Calcium 7.9 mg/dl (8.6-10.3); Creatinine Clr Calc Pharmacy 69.5 ml/min; Magnesium 1.5 mg/dl (1.7-2.4); Phosphorus 2.2 mg/dl (2.5-4.9); Potassium 4.7 mmol/L (3.5-5.1)
[2024-09-30] MEDS: POT PHOSPHATE MONOBASIC W/ SOD TAB PO SCH (09:42)
[2024-09-30] MEDS: MAGNESIUM SULFATE / D5W 1 GM/100 ML BAG IV SCH (09:42)
[2024-09-30 11:20] VITALS: BP 132/60; TEMP 97.5; O2SAT 100
--- NOTE | 2024-09-30 11:53 | Discharge Summary ---
Date of Service September 30, 2024 Admission HPI Per Admitting Provider Patient is 74 year old female with PMH paroxysmal atrial fibrillation anticoagulated on Eliquis, HTN, HLD, hypothyroidism, TIA, breast cancer presented to ER for fall and right hip pain. History obtained from patient, patient's daughter and inpatient and outpatient chart review. Patient states she does not remember falling or what happened. She states she knows she was on the ground and couldn't get up. Daughter states patient often does not remember things and reports forgetfulness at baseline and daughter states she feels she is at baseline mental status. Daughter states last saw patient at 11p last night and called her this morning and pt didn't answer. Daughter went to patient house and found patient lying on floor in kitchen still in her night gown and didn't appear that she had taken her morning pills yet and hadn't appeared to eaten. Patient was unable to ambulate. She denies noticing any urinary or bowel incontinence and states patient was awake and alert and oriented to her baseline. Patient reports has been having normal BMs and describes color as brown. She reports chronic balance issues. Uses walker at baseline. Was getting home PT however no longer getting it. Currently patient denies any complaint other than right hip pain. States right leg felt numb to daughter but currently patient describes right hip pain and right leg heaviness. States has chronic low back pain with radiation to right leg and feels like her current back pain is baseline and denies any worsening. Daughter states that her verapamil held the past 2 weeks. Patient denies current PAUL, CP, SOB, palpitations, N/V/D/C, abdominal pain, rhinorrhea, cough, dysuria, hematuria. Admission Exam Per Admitting Provider General: mild distress secondary to right hip pain, WDWN Head: normocephalic, atraumatic Eyes: PERRL, EOM's intact, conjunctiva non-injected, anicteric ENT: normal inspection external ears, nose, mucous membranes moist Neck: supple, trachea midline, non-tender Lungs: clear, no respiratory distress, no wheezing/rhonchi/rales CV: RRR, trace edema Abd: normal BS, soft, non-tender Ext: no cyanosis, no calf tenderness; RLE: +shortened and externally rotated. +tenderness to palpation entire right hip, sensation to light touch intact, no ROM attempted. Pt able to actively move bilateral upper extremities without tenderness and able to flex and extend LLE Neuro: Alert, oriented to person, knows is in hospital, does not know date, no focal deficits noted, normal affect Skin: warm, dry Principal Diagnosis Intertrochanteric fracture of right hip Hemorrhagic shock Fall Paroxysmal A-fib Discharge Exam GENERAL: Alert and oriented x3. NAD, on RA. Obese class I. appears weak/frail. HEENT: No pallor, no icterus. Pupils equal, round and reactive to light. Oral mucosa moist. NECK: No JVD, no neck masses. HEART: S1 and S2 heard. Regular rate and rhythm. + murmur, no gallop. RESPIRATORY SYSTEM: Normal AP diameter. No accessory muscle use. No wheezing, no crackles. ABDOMEN: Soft, bowel sounds present, nontender, no distention. CENTRAL NERVOUS SYSTEM: No facial droop. Speech is clear. Obeys simple commands. Moves extremities. EXTREMITIES: 1+ ble edema, no erythema seen. UC w/ light yellow urine in urinary bag. Discharge Data Allergies Allergy/AdvReac Type Severity Reaction Status Date / Time Penicillins Allergy Intermediate Hives Verified 09/24/24 16:29 Sulfa (Sulfonamide AdvReac Severe SEVERE Verified 09/24/24 16:29 Antibiotics) NAUSEA Consultations 09/24/24 15:12 ED Decision to Admit Stat 09/24/24 18:37 Consult Equal Opportunity Assistant Routine 09/24/24 21:06 Consult Anesthesiology Routine Consult Cardiology Routine Consult Orthopedic Surgery Routine Procedures Performed Operation Date: 09/25/24 07:30 Actual Procedures p Long Intramedullary Nail Hip Right(Right) - Logan Luna DO Ordered Studies 09/24/24 15:15 CT cervical spine wo con Stat CT head/brain wo con Stat 09/24/24 18:57 CT hip RT w con Stat 09/25/24 01:32 CT Abdomen and Pelvis [CT abd pelvis wo con] Stat 09/25/24 06:48 FL femur RT 2V Routine Hospital Course (1) Intertrochanteric fracture of right hip: Plan 74-year-old female with PMH of paroxysmal A-fib on Eliquis, HTN, HLD, hypothyroidism, TIA, breast cancer presented to the ED 09/24 after fall and right hip pain. Patient noted to have right hip fracture. Patient not aware how she fell, per daughter patient often does not remember things and reports forgetfulness at baseline. She was managed for the following: Intertrochanteric fracture of right hip: Status post long intramedullary nail right hip on 09/25/2024 Ortho evaluated, John FERNANDEZ, follow-up with Ortho in 1 to 2 weeks time upon discharge. Continue with pain control, PT/OT, PT OT recommends rehab. Hemorrhagic shock Recent admission to the hospital from 07/19/2024 to 07/25/2024 due to acute blood loss anemia and required 3 units of PRBC After presentation, her hemoglobin dropped to 6.3, likely went into hemorrhagic shock secondary to fall and right hip fracture. She received total of 5 units PRBC since admission, hemoglobin is still low at 7.6. Monitor H&H twice a day or as needed. Transfuse PRBC for hemoglobin less than 7.5 or for symptomatic anemia. Anticoagulation has not been able to be restarted. Eliquis on hold. Plan to resume anticoagulation with apixaban once gait and hemodynamic stability assured. Plan to continue with PT/OT at rehab and then once hemodynamically stability/mobility/hemoglobin stability is ensured, resume Eliquis probably next 3 to 5 days with a close monitoring of H&H thereafter. Fall: The etiology of this is not quite known as this was not witnessed but does not appear to be syncopal. PT and OT evaled -- recs is rehab. PAF (paroxysmal atrial fibrillation): Continue with amiodarone, aspirin, metoprolol Cardiology on board, appreciate recommendation. Verapamil on hold, amiodarone added, metoprolol dose optimized. Anticoagulation concerns, see above. Hypothyroidism (acquired): TSH elevated with higher normal FT4, levothyroxine decreased to 125 mcg daily from 150 mcg daily. Repeat thyroid function test in 6 weeks time upon discharge. Mixed hyperlipidemia: Continue with Lipitor 40 mg daily. Dispo: CM working on disposition. Following instructions were communicated to patient's daughter over the phone prior to discharge. Patient is being discharged to rehab with following instruction at the point of discharge: Follow-up with your primary care physician within a week time and likely you will need labs CBC/CMP/magnesium/phosphorus. You were evaluated for right hip fracture, repair done on 09/25/2024. Continue with PT/OT at rehab. Follow-up with orthopedics in 1 to 2 weeks time upon discharge. You will be discharged on Kumar catheter, once you start mobilizing around more comfortably, you can get your Kumar catheter removed at rehab facility. You had hemorrhagic shock due to blood loss secondary to fracture. You needed 5 units blood transfusion while in hospital. Your hemoglobin has been stable around 7.5 since last few days. You will need your daily hemoglobin while at rehab until deemed stable. Once you are up and moving with physical therapy and for next 2 to 4 days with stable hemoglobin, your Eliquis can be resumed with close monitoring of your H&H daily or twice a day as needed. Continue to monitor H&H for few days after Eliquis has been resumed to make sure her hemoglobin is stable. Your levothyroxine dose has been decreased from 150 mcg daily to 125 mcg daily. You will need repeat thyroid function test in about 6 weeks time, coordinate with your PCP office to set up the test. Cardiology evaluated you while in the hospital, you are being discharged on amiodarone and your metoprolol dose has been decreased. Follow-up with your cardiology in 2 to 4 weeks time upon discharge. Take your medications as prescribed. Please make sure that you are able to get your medications today by calling your pharmacy before you leave the hospital so that your treatment continuity is not broken. Home Health Attestation I certify that this patient is under my care and that I, or a physicians executive chef assistant working with me, had a face to-face encounter that meets the home health wwrc-mo-liup encounter requirements with this patient. The encounter with the patient was in whole, or in part, for the following medical condition, which is the primary reason for home health care (list medical condition): I certify that, based on my findings, the following services are medically necessary home health services: My clinical findings support the need for the above services because: Further, I certify that my clinical findings support that this patient is homebound (i.e. absences from home require considerable and taxing effort and are for medical reasons or voodoo services or infrequently or of short duration when for other reasons) because: Certification for Home Health Services: Based on the above findings, I certify that this patient is confined to the home and needs intermittent intermediate care, physical therapy and/or speech therapy or continues to need occupational therapy. The patient is under my care, and I have initiated the establishment of the plan of care. This patient will be followed by a physician who will periodically review the plan of care. Total Time Total Time Spent Total Time Spent (In Minutes): 45 Discharge Plan Discharge Items Patient Disposition: Transfer Inpatient Rehab Fac Reason For Visit: RAPID A-FIB Discharge Diagnosis: Intertrochanteric fracture of right hip Hemorrhagic shock Fall Paroxysmal A-fib Activity: As commented below Activity Comment: PT/OT at rehab facility. Non-emergency contact: Primary Care Provider Call non-emergency contact if: you have any medication questions, your symptoms worsen, your pain is worsening and your temperature is above 101 Follow-up/Referrals: Maged Katz MD [Primary Care Provider] - Diet: Carb Count or DM1 and Heart Healthy Addtl Attending Provider Instructions: Follow-up with your primary care physician within a week time and likely you will need labs CBC/CMP/magnesium/phosphorus. You were evaluated for right hip fracture, repair done on 09/25/2024. Continue with PT/OT at rehab. Follow-up with orthopedics in 1 to 2 weeks time upon discharge. You will be discharged on Kumar catheter, once you start mobilizing around more comfortably, you can get your Kumar catheter removed at rehab facility. You had hemorrhagic shock due to blood loss secondary to fracture. You needed 5 units blood transfusion while in hospital. Your hemoglobin has been stable around 7.5 since last few days. You will need your daily hemoglobin while at rehab until deemed stable. Once you are up and moving with physical therapy and for next 2 to 4 days with stable hemoglobin, your Eliquis can be resumed with close monitoring of your H&H daily or twice a day as needed. Continue to monitor H&H for few days after Eliquis has been resumed to make sure her hemoglobin is stable. Your levothyroxine dose has been decreased from 150 mcg daily to 125 mcg daily. You will need repeat thyroid function test in about 6 weeks time, coordinate with your PCP office to set up the test. Cardiology evaluated you while in the hospital, you are being discharged on amiodarone and your metoprolol dose has been decreased. Follow-up with your cardiology in 2 to 4 weeks time upon discharge. Take your medications as prescribed. Please make sure that you are able to get your medications today by calling your pharmacy before you leave the hospital so that your treatment continuity is not broken. Addtl Regulatory Leader Provider Instructions: ORTHOPEDIC INSTRUCTIONS Hip Fracture Activity and Therapy Recommendations: 1. You were shown a series of exercises in the hospital. Do these exercises three times each day if you are able. 2. Get up and walk several times each day if you are capable. Make sure you have assistance is needed. For the first four weeks, try not to stand or walk for more than one hour at a time. If you do stand or walk for more than one hour, you will not hurt anything, but your leg will likely swell. 3. As you feel comfortable, you may change from the walker or crutches to a cane and then to independent walking if you are able. Please be safe. Medications: 1. Narcotic You will likely be sent from the hospital with the narcotic pain medication that worked best throughout your stay. 2. You were started on an anticoagulant in the hospital. Continue the anticoagulant for 6 weeks. 3. Other medications may be given for specific circumstances. If you have any questions, please call the office at [phone]. 4. Resume previous home medications unless otherwise instructed TEDs/Elastic Stockings: The white elastic stockings help limit swelling and prevent blood clots from forming in your legs. The more you wear them, the more they work. Wear them for six weeks. Dressing Care: The Prevena VAC dressing can stay on for 7 days. After 7 days the batteries will wear out and you can peel the dressing off. You may leave the michelle dry and open to air or cover them if they are getting caught on your clothing. Showering: You may shower 5 days from the day of surgery as long as the incisions are not draining. Do not soak the incision. Let soapy water run over the michelle and pat them dry. You may shower with the Prevena VAC dressing in place. Diet: You may resume your previous diet. Things To Watch For: 1. Drainage from the incision site that occurs more than one week after your surgery. 2. Increased redness at the incision site. 3. Fever above 102 degrees Fahrenheit. 4. Unusual chest pain or shortness of breath. 5. Call [facility] at with any of the above problems Follow-Up Visit: Follow-up with Dr. Luna office 2-3 weeks after your day of surgery. We will remove your michelle and answer any questions. Please call the office to set up an appointment for a time that works for you. Pending Studies at Discharge: No Stand-Alone Forms: My [facility] Skilled Items Patient informed of condition?: Yes DNR: No Discharge Level of Care: Acute rehab Communicable Disease: No Discharge Prognosis: Stable Lines: None Urinary Catheter: Yes Medications and DC Order Prescriptions: New amiodarone 200 mg Tablet 200 mg PO BIDM Qty: 60 0RF metoprolol succinate 25 mg Tablet Extended Release 24 Hr 12.5 mg PO QAM Qty: 15 0RF Phospha 250 Neutral 250 mg Tablet 2 tab PO QID Qty: 7 0RF Continued atorvastatin 40 mg tablet 40 mg PO QAM aspirin 81 mg Tablet,Delayed Release (Dr/Ec) 81 mg PO QAM Hold Instructions: Resume on 07/29/24. oxycodone 5 mg tablet 5 mg PO TID Rx Instructions: takes with tylenol...ordered prn but family was instructed by [facility] family independence case manager for Dr. Katz to give it 3 times a day for control calcitonin (salmon) 200 unit/actuation spray,non-aerosol 1 spray intranasal (ALT) QAM nystatin 100,000 unit/gram powder 1 applic TOPICAL BID Rx Instructions: apply to abdominal folds magnesium chloride [Mag 64] 64 mg Tablet,Delayed Release (Dr/Ec) 64 mg PO BID Qty: 60 1RF pantoprazole 40 mg Tablet,Delayed Release (Dr/Ec) 40 mg PO BID Qty: 60 1RF ferrous sulfate 325 mg (65 mg iron) Tablet,Delayed Release (Dr/Ec) 325 mg PO BID Qty: 60 1RF metformin 500 mg Tablet 1,000 mg PO BIDM lorazepam [Ativan] 0.5 mg Tablet 0.5 mg PO Q8 PRN (Reason: Anxiety) Rx Instructions: not using cholecalciferol (vitamin D3) 125 mcg (5,000 unit) Tablet 125 mcg PO QAM Qty: 30 0RF cyanocobalamin (vitamin B-12) [Vitamin B-12] 1,000 mcg Tablet Extended Release 1,000 mcg PO QAM sertraline 25 mg tablet 25 mg PO QAM acetaminophen 650 mg Tablet Extended Release 650 mg PO TID Rx Instructions: give with oxycodone lidocaine 4 % adhesive patch,medicated 1 patch topical DAILY Qty: 15 0RF Rx Instructions: may leave on for up to 12 hrs Changed levothyroxine [Synthroid] 150 mcg Tablet 125 mcg PO DAILYBB Qty: 30 0RF Held Eliquis 5 mg Tablet 5 mg PO AMHS Hold Instructions: Resume on 10/07/24. to be resumed w/ close monitoring of daily HnH in next few days as per instruction section Discontinued metoprolol tartrate 25 mg tablet 12.5 mg PO AMHS Rx Instructions: 1/2 tablet dose verapamil 40 mg tablet 40 mg PO . ON HOLD Rx Instructions: ORDERED BID...BUT IS ON HOLD PER DR FOR LAST ABOUT 2 WEEKS...PER DAUGHTER Discharge Orders: Discharge Order (Routine); Ordered 09/30/24 Ordered By: Loretta Wise Admission Data Admit Date/Time: 09/24/24 15:38 Attending Provider: Loretta Wise Admit Provider: Javy Herring Primary Care Provider: Maged Katz Other Providers: Ever Toussaint; [facility]; [facility]; Javy Herring; Ruddy Gold; Vincent Suazo; Crispin Alvarez; Logan Luna
[2024-09-30 13:50] VITALS: PULSE 63
[2024-10-01] MEDS ORDERED: LEVOTHYROXINE SODIUM 125 MCG TABLET PO SCH (06:30)
== END 2024-09-30 14:34 | DRG 480 ==
LOC: ED 13:09 → 1E 15:38 → SUATTDRO 15:38 → 1E 20:47 → 2S 09-25 18:30

== ENCOUNTER 2024-10-22 10:42 | Inpatient (IN) ==
--- NOTE | 2024-10-22 12:18 | Emergency Department Note ---
Impression & Plan Anemia ADMIT ED Provider Note HPI: History obtained from patient. The patient is a 74-year-old female with history of atrial fibrillation, on anticoagulation, history of hemorrhagic shock, vascular dementia, presents the emergency department with a chief complaint of generalized weakness and low hemoglobin on outpatient testing. Patient currently resides at a nursing facility ([facility]). Patient states that she is not having any pain, she denies any blood per rectum. On arrival here to the ED the patient is mildly hypotensive at 90/55 but otherwise hemodynamically stable and saturating well on room air. Patient is alert on my assessment. ROS: - Per HPI Differential Diagnosis: Lower GI hemorrhage, hematemesis, other acute blood loss anemia, iron deficiency anemia, sepsis, acute kidney injury/acute dehydration, amongst other potential pathologies. *Outpatient medications and allergy history reviewed. PE: General: Alert, frail-appearing, pale HEENT: Normocephalic, trachea midline Eyes: Extraocular eye movement is intact, no scleral erythema Pulmonary: Clear to auscultation bilaterally, no wheezing Cardio: Regular rate and rhythm GI: Abdomen is soft to palpation, rectal examination performed with female RN at the bedside does not show any evidence of external hemorrhoids or active bleeding, stool testing is occult positive and appears consistent with melena : No suprapubic tenderness MSK: No evidence of trauma or malformation of the extremities, no edema Skin: No evidence of rash Neuro: Alert, no focal deficits Psychiatric: Cooperative 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 Lab work shows a leukocytosis of 15.5, hemoglobin is low at 6.7, platelet count is normal, CMP shows multiple abnormalities including mild hyponatremia 131, serum bicarbonate level is mildly reduced at 19, glucose is 290, patient was given IV fluids here in the ED. Low suspicion for DKA given bicarbonate level only mildly low and patient without any symptoms of nausea or vomiting. Patient is cold stool testing is positive, she appears to have melena on rectal exam. I suspect the source of her anemia is likely a GI bleed. She has not had any zeny blood per rectum. She was recently restarted on Eliquis. Patient's blood pressure improved with IV fluids, patient's daughter later arrived at the bedside and signed consent for blood transfusion. I did discuss all these findings with the on-call hospitalist service for [facility], case was discussed with the on-call midlevel provider and the patient was placed for admission in stable condition to the service of Dr. Mccrary. Consultants/Discussions held with other healthcare providers: -Hospitalist service, Dr. Mccrary Disposition discussion held by myself with: -Patient and patient's daughter at the bedside * CRITICAL CARE TIME: ( 44 ) minutes -Stabilization of patient with hypotension and GI bleeding requiring packed red blood cell transfusion for hemoglobin less than 7.0, time spent at the bedside, interpretation of diagnostic studies, discussion with other healthcare providers and arrangement of admission Diagnosis: 1. GI bleed, acute 2. Anemia, acute 3. Leukocytosis, acute, nonspecific Disposition: Admission Brad Colorado DO Emergency Medicine Past Med/Surg History Problem List (Updated 10/22/24 @ 15:51 by Brad Colorado DO) Anemia (Acute) Anemia, macrocytic GI bleed Mixed hyperlipidemia Hypothyroidism (acquired) Hemorrhagic shock Atrial fibrillation with RVR PAF (paroxysmal atrial fibrillation) Intertrochanteric fracture of right hip (Acute) Weakness (Acute) Symptomatic anemia (Acute) Hypomagnesemia (Acute) Lightheadedness GERD (gastroesophageal reflux disease) Vascular dementia Hypothyroidism (Acute) History of stroke Medical History Encounter for pre-operative examination Compression fracture of lumbosacral spine DAVIS (obstructive sleep apnea) Aortic stenosis CVA (cerebral vascular accident) Anemia Encephalopathy Persistent atrial fibrillation Diabetes mellitus Acute UTI History of breast cancer Surgical History Hx of cholecystectomy H/O section H/O gastric bypass Left ulnar fracture Family History Other Breast cancer Diabetes Hypertension Social History (System 10/18/24 @ 11:39 by Nahomy Dugan) Smoking Status: Never smoker Hx Alcohol Use: Yes Hx Substance Use: No Preferred Language: Greenlandic Communication Ability: Effective Audio Director Required: No Beliefs That Will Affect Care: None Current Living Situation: Alone Current Living Situation Comment: daughter lives across the street Feels Safe at Home: Yes Gender Identity: Female Assistive Devices: Cane and Walker Allergies Allergies Allergy/AdvReac Type Severity Reaction Status Date / Time Penicillins Allergy Intermediate Hives Verified 10/18/24 11:39 Sulfa (Sulfonamide AdvReac Severe SEVERE Verified 10/18/24 11:39 Antibiotics) NAUSEA Home Meds Home Medications Medication Instructions Recorded Confirmed apixaban 5 mg tablet (Eliquis) 5 mg PO AMHS 12/13/23 10/22/24 lorazepam 0.5 mg tablet (Ativan) 0.5 mg PO Q8 PRN Anxiety 12/13/23 10/22/24 metformin 500 mg tablet 1,000 mg PO BIDM 12/13/23 10/22/24 aspirin 81 mg tablet,delayed 81 mg PO QAM 02/01/24 10/22/24 release atorvastatin 40 mg tablet 40 mg PO QAM 02/01/24 10/22/24 acetaminophen 650 mg 650 mg PO TID ud 03/11/24 10/22/24 tablet,extended release cyanocobalamin (vitamin B-12) 1,000 mcg PO QAM 03/11/24 10/22/24 1,000 mcg tablet,extended release (Vitamin B-12 ER) sertraline 25 mg tablet 25 mg PO QAM 03/11/24 10/22/24 calcitonin (salmon) 200 1 spray intranasal (ALT) QAM 07/19/24 10/22/24 unit/actuation nasal spray nystatin 100,000 unit/gram topical 1 applic topical BID 07/19/24 10/22/24 powder oxycodone 5 mg tablet 10 mg PO TID pain 07/19/24 10/22/24 doxycycline hyclate 100 mg tablet 100 mg PO BID 10/22/24 10/22/24 ertapenem 1 gram solution for 1 g IM DAILY 10/22/24 10/22/24 injection Previous Rx's Medication Instructions Recorded cholecalciferol (vitamin D3) 125 125 mcg PO QAM #30 tabs 02/06/24 mcg (5,000 unit) tablet lidocaine 4 % topical patch 1 patch topical DAILY #15 ea 03/16/24 ferrous sulfate 325 mg (65 mg 325 mg PO BID #60 tabs 07/25/24 iron) tablet,delayed release magnesium chloride 64 mg 64 mg PO BID #60 tabs 07/25/24 (magnesium chloride) tablet,delayed release (Mag 64) pantoprazole 40 mg tablet,delayed 40 mg PO BID #60 tabs 07/25/24 release amiodarone 200 mg tablet 200 mg PO BIDM #60 tabs 09/30/24 levothyroxine 150 mcg tablet 125 mcg (0.8333 x 150 mcg) PO 09/30/24 (Synthroid) DAILYBB #30 tabs metoprolol succinate 25 mg 12.5 mg (1/2 x 25 mg) PO QAM #15 09/30/24 tablet,extended release 24 hr tabs sodium di- and 2 tab PO QID #7 tabs 09/30/24 monophosphate-potassium phos monobasic 250 mg tablet (Phospha Neutral) Results & Data (ED) Vital Signs Vital Signs - 24 hr 10/22/24 11:28 10/22/24 12:24 10/22/24 12:33 Temperature 36.7 C Temperature Source Skin Pulse Rate 76 66 65 Pulse Rate from SpO2 Sensor 66 65 Respiratory Rate 20 13 Respiratory Effort / Characteristics Non-Labored Spontaneous Respiratory Depth Normal Respiratory Pattern Regular Blood Pressure 90/55 L Blood Pressure Mean 66 Blood Pressure Position Pulse Oximetry 99 95 98 Oxygen Delivery Method Room Air Sepsis Recent Fever Within 48 Hours No Sepsis New/Unexplained Change in Mental Status N/A Sepsis Action Taken by Nursing No Action Required 10/22/24 12:35 10/22/24 12:36 10/22/24 12:36 Temperature Temperature Source Pulse Rate 65 Pulse Rate from SpO2 Sensor Respiratory Rate Respiratory Effort / Characteristics Non-Labored Spontaneous Respiratory Depth Normal Respiratory Pattern Blood Pressure Blood Pressure Mean Blood Pressure Position Pulse Oximetry Oxygen Delivery Method Room Air Sepsis Recent Fever Within 48 Hours Sepsis New/Unexplained Change in Mental Status Sepsis Action Taken by Nursing 10/22/24 12:42 10/22/24 12:54 10/22/24 13:35 Temperature 36.9 C Temperature Source Oral Pulse Rate 65 66 66 Pulse Rate from SpO2 Sensor 65 66 Respiratory Rate 14 14 Respiratory Effort / Characteristics Respiratory Depth Respiratory Pattern Blood Pressure 112/48 L Blood Pressure Mean 69 Blood Pressure Position Pulse Oximetry 97 98 94 Oxygen Delivery Method Sepsis Recent Fever Within 48 Hours Sepsis New/Unexplained Change in Mental Status Sepsis Action Taken by Nursing 10/22/24 13:50 10/22/24 14:05 10/22/24 14:35 Temperature 37.1 C 37.1 C 37.1 C Temperature Source Oral Oral Oral Pulse Rate 69 70 69 Pulse Rate from SpO2 Sensor Respiratory Rate 18 18 18 Respiratory Effort / Characteristics Respiratory Depth Respiratory Pattern Blood Pressure 117/53 L 129/60 114/63 Blood Pressure Mean 74 83 80 Blood Pressure Position Lying Lying Pulse Oximetry 98 98 97 Oxygen Delivery Method Sepsis Recent Fever Within 48 Hours Sepsis New/Unexplained Change in Mental Status Sepsis Action Taken by Nursing 10/22/24 15:35 Temperature 36.7 C Temperature Source Oral Pulse Rate 66 Pulse Rate from SpO2 Sensor Respiratory Rate 12 Respiratory Effort / Characteristics Respiratory Depth Respiratory Pattern Blood Pressure 114/53 L Blood Pressure Mean 73 Blood Pressure Position Pulse Oximetry 99 Oxygen Delivery Method Sepsis Recent Fever Within 48 Hours Sepsis New/Unexplained Change in Mental Status Sepsis Action Taken by Nursing Laboratory Data 10/22/24 12:12 10/22/24 12:12 Lab Results 10/22/24 10/22/24 Range/Units 12:12 12:44 WBC 15.50 H (4.8-10.8) K/ul RBC 2.07 L (4.20-5.40) M/uL Hgb 6.7 L* (12.0-16.0) g/dl Hct 22.6 L (37.0-47.0) % MCV 109.2 H (80.0-100.0) fL MCH 32.4 (25.0-34.0) pg MCHC 29.6 L (32.0-36.0) g/dL RDW Std Deviation 84.1 H (36.4-46.3) fL RDW Coeff of Valentina 22.1 H (11.5-14.5) % Plt Count 369 (130-400) K/uL MPV 10.5 (9.4-12.4) fL Absolute Nucleated RBC 0.02 (0.00-0.12) K/uL Nucleated RBC % (auto) 0.1 % PT 11.9 (9.0-12.0) Seconds INR 1.1 (0.9-1.1) APTT 24 (21-31) Seconds PTT Ratio 0.9 Sodium 131 L (136-145) mmol/L Potassium 4.3 (3.5-5.1) mmol/L Chloride 96 L (98-107) mmol/L Carbon Dioxide 19 L (21-32) mmol/L Anion Gap 16 H (3-11) BUN 28 H (6-23) mg/dl Creatinine 0.83 (0.6-1.2) mg/dl Est Cr Clr Drug Dosing 56.4 ml/min eGFR 73.47 BUN/Creatinine Ratio 33.7 H (10-20) Glucose 290 H (70-99(Fasting)) mg/dl Calcium 8.0 L (8.6-10.3) mg/dl Iron 95 (35-150) mcg/dl TIBC 381 (250-450) mcg/dl Transferrin 272 (200-360) mg/dl Transferrin % Sat 25 (15-50) % Ferritin 131.3 (8-388) ng/ml Total Bilirubin 0.6 (0.2-1.0) mg/dl AST 22 (13-39) U/L ALT 19 (7-52) U/L Alkaline Phosphatase 113 H (34-104) U/L Troponin I High Sens 8.8 (0-14) pg/ml Total Protein 5.5 L (6.0-8.3) gm/dl Albumin 3.1 L (3.4-5.0) gm/dl Globulin 2.4 L (2.5-4.0) gm/dl Albumin/Globulin Ratio 1.3 (0.9-2) SARS-CoV-2, RNA, NAAT NEGATIVE (NEGATIVE) Blood Type O Positive Antibody Screen NEGATIVE Crossmatch See Detail Administered Medications Pantoprazole Sodium 40 mg/ (Dextrose) 100 mls @ 20 mls/hr IV Q5H BRENNEN Stop: 11/21/24 13:29 Last Admin: 10/22/24 14:38 Dose: 8 mg/hr, 20 mls/hr Documented By: DIVINA Discontinued Medications Sodium Chloride (Nss) 1,000 mls @ 999 mls/hr IV .Q1H1M ONE Stop: 10/22/24 13:11 Last Infusion: 10/22/24 13:28 Dose: Infused Documented By: Admin: 10/22/24 12:27 Dose: 999 mls/hr Documented By: DIVINA Pantoprazole Sodium 80 mg/ (Dextrose) 120 mls @ 480 mls/hr IV NOW ONE Stop: 10/22/24 13:17 Last Infusion: 10/22/24 13:58 Dose: Infused Documented By: Admin: 10/22/24 13:43 Dose: 480 mls/hr Documented By: JENNIFER Morphine Sulfate (Morphine Sulfate 2 Mg/Ml Carp) 2 mg IV NOW STA Stop: 10/22/24 15:00 Last Admin: 10/22/24 15:14 Dose: 2 mg Documented By: JENNIFER Pantoprazole Sodium (Pantoprazole Bolus/Drip) 1 each IV NOW STA Stop: 10/22/24 13:04 Last Admin: 10/22/24 13:44 Dose: 1 each Documented By: JENNIFER Discharge Plan Visit Data Chief Complaint: Abnormal Labs/Diagnostic Testing ED Provider: Brad Colorado Discharge Problem: Anemia Forms Stand Alone Forms: Former[facility], 1928–1983 Prescriptions Prescriptions: No Action atorvastatin 40 mg tablet 40 mg PO QAM aspirin 81 mg Tablet,Delayed Release (Dr/Ec) 81 mg PO QAM Hold Instructions: Resume on 07/29/24. oxycodone 5 mg tablet 10 mg PO TID Rx Instructions: takes with tylenol...ordered prn but family was instructed by [facility] correctional casework specialist for Dr. Katz to give it 3 times a day for control calcitonin (salmon) 200 unit/actuation spray,non-aerosol 1 spray intranasal (ALT) QAM nystatin 100,000 unit/gram powder 1 applic TOPICAL BID Rx Instructions: apply to abdominal folds magnesium chloride [Mag 64] 64 mg Tablet,Delayed Release (Dr/Ec) 64 mg PO BID Qty: 60 1RF pantoprazole 40 mg Tablet,Delayed Release (Dr/Ec) 40 mg PO BID Qty: 60 1RF ferrous sulfate 325 mg (65 mg iron) Tablet,Delayed Release (Dr/Ec) 325 mg PO BID Qty: 60 1RF amiodarone 200 mg Tablet 200 mg PO BIDM Qty: 60 0RF metoprolol succinate 25 mg Tablet Extended Release 24 Hr 12.5 mg PO QAM Qty: 15 0RF Phospha 250 Neutral 250 mg Tablet 2 tab PO QID Qty: 7 0RF levothyroxine [Synthroid] 150 mcg Tablet 125 mcg PO DAILYBB Qty: 30 0RF doxycycline hyclate 100 mg Tablet 100 mg PO BID Rx Instructions: Started 10/20/24 ertapenem 1 gram Recon Soln 1 g IM DAILY Rx Instructions: Started 10/20/24 metformin 500 mg Tablet 1,000 mg PO BIDM lorazepam [Ativan] 0.5 mg Tablet 0.5 mg PO Q8 PRN (Reason: Anxiety) Rx Instructions: not using Eliquis 5 mg Tablet 5 mg PO AMHS Hold Instructions: Resume on 10/07/24. to be resumed w/ close monitoring of daily HnH in next few days as per instruction section cholecalciferol (vitamin D3) 125 mcg (5,000 unit) Tablet 125 mcg PO QAM Qty: 30 0RF cyanocobalamin (vitamin B-12) [Vitamin B-12] 1,000 mcg Tablet Extended Release 1,000 mcg PO QAM sertraline 25 mg tablet 25 mg PO QAM acetaminophen 650 mg Tablet Extended Release 650 mg PO TID Rx Instructions: give with oxycodone lidocaine 4 % adhesive patch,medicated 1 patch topical DAILY Qty: 15 0RF Rx Instructions: may leave on for up to 12 hrs Referrals Referrals: Maged Katz MD [Primary Care Provider] -
[2024-10-22] MEDS: SODIUM CHLORIDE 0.9% 1,000 ML IV ONE (12:27)
[2024-10-22] MEDS ORDERED: SODIUM CHLORIDE 0.9% 100 ML IV PRN ×2 (12:38→18:45)
[2024-10-22] MEDS ORDERED: SODIUM CHLORIDE 0.9% 50 ML IV PRN ×2 (12:38→18:45)
[2024-10-22 12:48] LABS: Hematocrit (blood only) 22.6 % (37.0-47.0); Hemoglobin 6.7 g/dl (12.0-16.0); Mean Corpuscular Hemoglobin 32.4 pg (25.0-34.0); Mean Corpuscular Hgb Conc 29.6 g/dL (32.0-36.0); Mean Corpuscular Volume 109.2 fL (80.0-100.0); Mean Platelet Volume 10.5 fL (9.4-12.4); Nucleated RBC # (auto) 0.02 K/uL (0.00-0.12); Nucleated RBC % (auto) 0.1 %; Platelet Count 369 K/uL (130-400); RDW Coefficient of Variation 22.1 % (11.5-14.5); RDW Standard Deviation 84.1 fL (36.4-46.3); Red Blood Count 2.07 M/uL (4.20-5.40)
[2024-10-22 12:56] LABS: Albumin Globulin Ratio 1.3 (0.9-2); Albumin Level 3.1 gm/dl (3.4-5.0); BUN Creatinine Ratio 33.7 (10-20); Bilirubin,Total 0.6 mg/dl (0.2-1.0); Creatinine Clr Calc Pharmacy 56.4 ml/min; Globulin 2.4 gm/dl (2.5-4.0); Potassium 4.3 mmol/L (3.5-5.1); Total Protein 5.5 gm/dl (6.0-8.3)
[2024-10-22 13:01] LABS: Troponin I High Sensitivity 8.8 pg/ml (0-14)
[2024-10-22 13:06] LABS: INR 1.1 (0.9-1.1); Partial Thromboplastin Ratio 0.9; Partial Thromboplastin Time 24 Seconds (21-31); Prothrombin Time 11.9 Seconds (9.0-12.0)
[2024-10-22 13:15] LABS: Ferritin 131.3 ng/ml (8-388)
--- NOTE | 2024-10-22 13:33 | History & Physical Report ---
Date of Service October 22, 2024 Assessment & Plan (1) GI bleed: (2) Anemia, macrocytic: (3) PAF (paroxysmal atrial fibrillation): (4) Hypothyroidism: (5) Mixed hyperlipidemia: (6) GERD (gastroesophageal reflux disease): Plan GI bleeding Macrocytic Anemia - Admit to tele - Hgb of 6.7 on admission, transfuse PRBC x 1 and trend to maintain hgb >7.5 - Eliquis resumed sometime within the past 2 weeks (Setred says resumed on 10/07) will HOLD for now with acute GI bleeding, hold ASA 81 mg - Follow peripheral smear - GI consult for possible endoscopy EGD 07/23 with hx of Roue-en-Y gastric bypass, no bleeding. Colonoscopy 07/19: 10 mm single ulcer in the ascending colon, nonbleeding. Medium mouthed diverticula found in the left colon. - Started on protonix bolus and gtt, will continue - PT/OT consults R hip wound - Continue on ertapenum IV ( started on 1g IM on 10/20 daily x 7 day) and doxycycline 100 g PO BID (started on 10/20 x 10 d) to complete the course. - Appears to be healing well - Nursing to continue daily dressing changes, skin monitoring Paroxysmal Atrial Fibrillation - Continue rate control agents - -amiodarone 200 mg daily and metoprolol succinate 12.5 mg daily - BP is stable HLD - Cont statin therapy atorvastatin 40 mg daily DM II - ISS with accuchecks achs - hold home metformin for now Hypothyroidism - levothyroxine - TSH elevated with higher normal FT4, levothyroxine decreased to 125 mcg daily from 150 mcg daily during last admission GERD - Protonix gtt as above DVT ppx: teds, scds, hold chemical anticoagulation in the setting of GIB Lines: 2 PIV FEN/GI: NPO for now, allow chips of ice and meds with sips CODE: FULL Dispo: From home, likely to remain in the hospital x 1-2 days A total of 80 minutes were spent with greater than 50% of that time face to face with the patient, personally reviewing all current laboratories, imaging studies, past medication reconciliation, outpatient chart review, and discussion with specialists to collaborate care for the patient with attending. Please see attending documentation for corrections and/or additions. History of Present Illness Chief Complaint: Low hemoglobin Primary Care Provider: Maged Katz MD This is a 74 yo F with PMHx of chronic diastolic CHF, paroxysmal atrial fibrillation anticoagulated on Eliquis, aortic stenosis, HTN, HLD, hypothyroidism s/p thyroidectomy due to thyroid cancer, TIA, breast cancer, vascular dementia, and recent R hip fracture s/p intramedullary nailing on 09/25/24. She was treated post surgically for hgb of 6.3 causing hemorrhagic shock secondary to fall and right hip fracture with total of 5 U PRBCs. Pt was discharged to [facility] for rehab and was recommended that she is transfused for hgb less than 7.5. She was discharged from [facility] on 10/14/24 to [facility]. Since being there she was started on ertapenum IM and doxycycline PO started on 10/20/24 for local skin infection at the site of the R postsurgical R hip wound. Pt was restarted on Eliquis around 10/07 from outpatient review for AFib after it was held due to the bout of hemorrhagic shock as aforementioned. Upon routine outpatient labs, it was noted that her hgb dropped to the 6s and was referred here to the ER. Hgb on admission today is 6.7. Pt denies any sob, cp, dizziness or lightheadedness. She is very pale. Pt denies any abdominal pain. She admits to having a bout of nausea and dry heaves yesterday, denies any bloody bowel movements and reports constipation since being on pain medications (norco PO) for the hip surgery. Still nonweightbearing per family at bedside. She feels worn out and little exertion makes her tired. Pt took all her morning medications this morning. Last time she ate was today with breakfast. Allergies Allergy/AdvReac Type Severity Reaction Status Date / Time Penicillins Allergy Intermediate Hives Verified 10/18/24 11:39 Sulfa (Sulfonamide AdvReac Severe SEVERE Verified 10/18/24 11:39 Antibiotics) NAUSEA Home Medications Medication Instructions Recorded Confirmed Type apixaban 5 mg tablet (Eliquis) 5 mg PO AMHS 12/13/23 10/22/24 History lorazepam 0.5 mg tablet (Ativan) 0.5 mg PO Q8 PRN Anxiety 12/13/23 10/22/24 H istory metformin 500 mg tablet 1,000 mg PO BIDM 12/13/23 10/22/24 History aspirin 81 mg tablet,delayed 81 mg PO QAM 02/01/24 10/22/24 History release atorvastatin 40 mg tablet 40 mg PO QAM 02/01/24 10/22/24 History cholecalciferol (vitamin D3) 125 125 mcg PO QAM #30 tabs 02/06/24 10/22/24 Rx mcg (5,000 unit) tablet acetaminophen 650 mg 650 mg PO TID ud 03/11/24 10/22/24 History tablet,extended release cyanocobalamin (vitamin B-12) 1,000 mcg PO QAM 03/11/24 10/22/24 History 1,000 mcg tablet,extended release (Vitamin B-12 ER) sertraline 25 mg tablet 25 mg PO QAM 03/11/24 10/22/24 History lidocaine 4 % topical patch 1 patch topical DAILY #15 ea 03/16/24 10/22/24 Rx calcitonin (salmon) 200 1 spray intranasal (ALT) QAM 07/19/24 10/22/24 History unit/actuation nasal spray nystatin 100,000 unit/gram topical 1 applic topical BID 07/19/24 10/22/24 History powder oxycodone 5 mg tablet 10 mg PO TID pain 07/19/24 10/22/24 History ferrous sulfate 325 mg (65 mg 325 mg PO BID #60 tabs 07/25/24 10/22/24 Rx iron) tablet,delayed release magnesium chloride 64 mg 64 mg PO BID #60 tabs 07/25/24 10/22/24 Rx (magnesium chloride) tablet,delayed release (Mag 64) pantoprazole 40 mg tablet,delayed 40 mg PO BID #60 tabs 07/25/24 10/22/24 Rx release amiodarone 200 mg tablet 200 mg PO BIDM #60 tabs 09/30/24 10/22/24 Rx levothyroxine 150 mcg tablet 125 mcg (0.8333 x 150 mcg) PO 09/30/24 10/22/24 Rx (Synthroid) DAILYBB #30 tabs metoprolol succinate 25 mg 12.5 mg (1/2 x 25 mg) PO QAM #15 09/30/24 10/22/24 Rx tablet,extended release 24 hr tabs sodium di- and 2 tab PO QID #7 tabs 09/30/24 10/22/24 Rx monophosphate-potassium phos monobasic 250 mg tablet (Phospha Neutral) doxycycline hyclate 100 mg tablet 100 mg PO BID 10/22/24 10/22/24 History ertapenem 1 gram solution for 1 g IM DAILY 10/22/24 10/22/24 History injection Past Med/Surg History Problem List (Updated 10/22/24 @ 13:24 by Isabella Garcia PA-C) Anemia, macrocytic GI bleed Mixed hyperlipidemia Hypothyroidism (acquired) Hemorrhagic shock Atrial fibrillation with RVR PAF (paroxysmal atrial fibrillation) Intertrochanteric fracture of right hip (Acute) Weakness (Acute) Symptomatic anemia (Acute) Hypomagnesemia (Acute) Lightheadedness GERD (gastroesophageal reflux disease) Vascular dementia Hypothyroidism (Acute) History of stroke Medical History Encounter for pre-operative examination Compression fracture of lumbosacral spine DAVIS (obstructive sleep apnea) Aortic stenosis CVA (cerebral vascular accident) Anemia Encephalopathy Persistent atrial fibrillation Diabetes mellitus Acute UTI History of breast cancer Surgical History Hx of cholecystectomy H/O section H/O gastric bypass Left ulnar fracture Family History Other Breast cancer Diabetes Hypertension Social History (System 10/18/24 @ 11:39 by Nahomy Dugan) Smoking Status: Never smoker Hx Alcohol Use: Yes Hx Substance Use: No Preferred Language: Portuguese Communication Ability: Effective Manager Home Improvement Required: No Beliefs That Will Affect Care: None Current Living Situation: Alone Current Living Situation Comment: daughter lives across the street Feels Safe at Home: Yes Gender Identity: Female Assistive Devices: Cane and Walker Review of Systems Review of Systems: Constitutional: No fever, sweats or chills Eyes: No diplopia, no worsening or blurred vision ENT: normal hearing, no trouble swallowing Respiratory: No cough, sputum, dyspnea at rest or on exertion Cardiovascular: No chest pain, tightness or palpitations Abdomen: No pain, + nausea, no vomiting, diarrhea, + constipation Musculoskeletal: No joint pain, calf pain, swelling Neurologic: No weakness, numbness/tingling, + not walking s/p hip surgery Psychiatric: No anxiety or depression Skin: No rash or itch Physical Exam Physical Exam: General: awake, alert, no apparent distress, + pallor, + elderly white female Head: Normocephalic, atraumatic ENT: PERRL, EOMI, no pharyngeal exudate, mucous membranes slighly dry Chest: Clear to auscultation, on room air, no adventitious breath sounds Cardiac: Regular rate and rhythm, + loud holosystolic murmur with radiation to carotids, no JVD, normal peripheral pulses, good capillary refill Abdominal: NABS x 4 quadrants, soft, nondistended, nontender to palpation, no rebound or guarding Extremities: R hip surgical wound healing, no surrounding erythema, no purulent material expressed with palpation, no pain with palpation, , +2 pitting edema up to knees bilaterally, otherwise normal inspection, no peripheral erythema, calfs nontender to palpation Psych: Normal mood and affect Neuro: AAO x 3, strength intact bilaterally and rated 5/5, no motor deficits, speech is clear, no peripheral sensory deficits Results & Data Results & Data Vital Signs (Past 12 Hours) Vital Signs Temp Pulse Resp BP Pulse Ox O2 Del Method 10/22/24 12:54 66 14 98 10/22/24 12:42 65 97 10/22/24 12:36 Room Air 10/22/24 12:35 65 10/22/24 12:33 65 98 10/22/24 12:24 66 13 95 10/22/24 11:28 36.7 C 76 20 90/55 L 99 Room Air Laboratory Results 10/22/24 10/22/24 12:44 12:12 WBC 15.50 H RBC 2.07 L Hgb 6.7 L* Hct 22.6 L MCV 109.2 H MCH 32.4 MCHC 29.6 L RDW Std Deviation 84.1 H RDW Coeff of Valentina 22.1 H Plt Count 369 MPV 10.5 Absolute Nucleated RBC 0.02 Nucleated RBC % (auto) 0.1 PT 11.9 INR 1.1 APTT 24 PTT Ratio 0.9 Sodium 131 L Potassium 4.3 Chloride 96 L Carbon Dioxide 19 L Anion Gap 16 H BUN 28 H Creatinine 0.83 Est Cr Clr Drug Dosing 56.4 eGFR 73.47 BUN/Creatinine Ratio 33.7 H Glucose 290 H Calcium 8.0 L Iron 95 TIBC 381 Transferrin 272 Transferrin % Sat 25 Ferritin 131.3 Total Bilirubin 0.6 AST 22 ALT 19 Alkaline Phosphatase 113 H Troponin I High Sens 8.8 Total Protein 5.5 L Albumin 3.1 L Globulin 2.4 L Albumin/Globulin Ratio 1.3 SARS-CoV-2, RNA, NAAT NEGATIVE Blood Type O Positive Antibody Screen NEGATIVE Crossmatch See Detail Code Status & VTE Plan Code Status Full code - discussed with pt and daughter at bedside Supervising Physician Co-Signing Physician Notes I have seen and discussed the case with the collaborating advanced practitioner. I agree with the above H&P. I have reviewed and confirmed the patients medical history, the findings on physical examination, and the patients diagnosis and treatment plan with Radha OTTO and agree with the information documented. Seen at bedside. c/f GIB vs iron deficiency/subtle loss iso infections/surgery Patient denies any new concerns outside of right hip discomfort which is improving reports more constipation GENERAL APPEARANCE: AxOx4, pale woma, frail HEENT: NC, AT. MMM. EOMI, pallor NECK: Supple without lymphadenopathy. No stiffness or restricted ROM. HEART: Normal rate and regular rhythm, normal S1/S1, no m/r/g LUNGS: CTAB, moving air well. No crackles or wheezes are heard. ABDOMEN: Soft, nontender, nondistended with good bowel sounds heard. EXTREMITIES: Without cyanosis, clubbing or edema. NEUROLOGICAL: Grossly nonfocal. Alert and oriented, moving all 4 extremities Skin: surgical incision well approximated : discussed case with GI, suspect more chronic loss, can consider VCE as OP, hold ac for now, IV ppi BID, CLD, trend HH, iron studies No plans for scope at this time Continue abx to complete course per ortho I spent a total of 15 minutes coordinating, documenting, and providing care for this patient excluding time spent in the performance of separately billed services. All of the aforementioned completed outside of collaborating with the assigned advanced practitioner for a full treatment plan. I have reviewed the advanced practitioner's documentation, and I agree with, and take responsibility for the plan of care
[2024-10-22] MEDS: PANTOprazole 80 MG in DEXTROSE 5% 100 ML IV ONE (13:43)
[2024-10-22] MEDS: PANTOPRAZOLE BOLUS/DRIP IV STA (13:44)
[2024-10-22] MEDS: PANTOprazole 40 MG in DEXTROSE 5% MINI-B 100 ML IV SCH (14:38)
--- NOTE | 2024-10-22 14:40 | Gastrointestinal Consultation ---
Date of Consultation October 22, 2024 Assessment & Plan (1) Anemia, macrocytic: Anti coagulation held; No overt GI bleeding at present. Patient is constipated. -Continue to monitor H/H. -Continue to monitor for overt GI bleeding. -Can use Miralax for constipation relief; can titrate to response. -Continue treatment of anemia per primary team. -Continue Protonix IV 40 mg BID. -Recent EGD & colonoscopy for the same indication did not indicate any active GI bleeding and patient has continued on BID PPI therapy since that time. Could consider VCE as an outpatient to exclude small bowel source. No plans for repeat endoscopic evaluation at this time, however please notify GI if patient develops overt GI bleeding. -Supportive care per primary team. History of Present Illness Reason for Consultation: GI bleeding History of Present Illness Patient is a 74 yo female with macrocytic anemia, history, Afib on Eliquis, history of CVA on Aspirin, GERD, Vascular dementia, and hypothyroidism. Patient was transported to the ED from her nursing facility after feeling weak and having outpatient lab work. Her H/H here is 6.7/22.6. She notes she has recently been constipated at home. She denies gross hematochezia, hematemesis, melena. She has not had a bowel movement in our facility. Her baseline hemoglobin appears to be between 7-8 in our charts. Iron level 95. BUN 28. In June 2024, she was admitted for a similar issue with iron deficiency anemia. She had an EGD that was unremarkable for acute GI blood loss. She has a history of Genet-en-y and takes Protonix 40 mg BID at home. A subsequent colonoscopy during her previous admission was negative for acute blood loss as well. She continues Eliquis & Baby Aspirin at home. Allergies Allergy/AdvReac Type Severity Reaction Status Date / Time Penicillins Allergy Intermediate Hives Verified 10/18/24 11:39 Sulfa (Sulfonamide AdvReac Severe SEVERE Verified 10/18/24 11:39 Antibiotics) NAUSEA Home Medications Medication Instructions Recorded Confirmed Type apixaban 5 mg tablet (Eliquis) 5 mg PO AMHS 12/13/23 10/22/24 History lorazepam 0.5 mg tablet (Ativan) 0.5 mg PO Q8 PRN Anxiety 12/13/23 10/22/24 History metformin 500 mg tablet 1,000 mg PO BIDM 12/13/23 10/22/24 History aspirin 81 mg tablet,delayed 81 mg PO QAM 02/01/24 10/22/24 History release atorvastatin 40 mg tablet 40 mg PO QAM 02/01/24 10/22/24 History cholecalciferol (vitamin D3) 125 125 mcg PO QAM #30 tabs 02/06/24 10/22/24 Rx mcg (5,000 unit) tablet acetaminophen 650 mg 650 mg PO TID ud 03/11/24 10/22/24 History tablet,extended release cyanocobalamin (vitamin B-12) 1,000 mcg PO QAM 03/11/24 10/22/24 History 1,000 mcg tablet,extended release (Vitamin B-12 ER) sertraline 25 mg tablet 25 mg PO QAM 03/11/24 10/22/24 History lidocaine 4 % topical patch 1 patch topical DAILY #15 ea 03/16/24 10/22/24 Rx calcitonin (salmon) 200 1 spray intranasal (ALT) QAM 07/19/24 10/22/24 History unit/actuation nasal spray nystatin 100,000 unit/gram topical 1 applic topical BID 07/19/24 10/22/24 History powder oxycodone 5 mg tablet 10 mg PO TID pain 07/19/24 10/22/24 History ferrous sulfate 325 mg (65 mg 325 mg PO BID #60 tabs 07/25/24 10/22/24 Rx iron) tablet,delayed release magnesium chloride 64 mg 64 mg PO BID #60 tabs 07/25/24 10/22/24 Rx (magnesium chloride) tablet,delayed release (Mag 64) pantoprazole 40 mg tablet,delayed 40 mg PO BID #60 tabs 07/25/24 10/22/24 Rx release amiodarone 200 mg tablet 200 mg PO BIDM #60 tabs 09/30/24 10/22/24 Rx levothyroxine 150 mcg tablet 125 mcg (0.8333 x 150 mcg) PO 09/30/24 10/22/24 Rx (Synthroid) DAILYBB #30 tabs metoprolol succinate 25 mg 12.5 mg (1/2 x 25 mg) PO QAM #15 09/30/24 10/22/24 Rx tablet,extended release 24 hr tabs sodium di- and 2 tab PO QID #7 tabs 09/30/24 10/22/24 Rx monophosphate-potassium phos monobasic 250 mg tablet (Phospha Neutral) doxycycline hyclate 100 mg tablet 100 mg PO BID 10/22/24 10/22/24 History ertapenem 1 gram solution for 1 g IM DAILY 10/22/24 10/22/24 History injection Patient History Medical History Encounter for pre-operative examination Compression fracture of lumbosacral spine DAVIS (obstructive sleep apnea) Aortic stenosis CVA (cerebral vascular accident) Anemia Encephalopathy Persistent atrial fibrillation Diabetes mellitus Acute UTI History of breast cancer Surgical History Hx of cholecystectomy H/O section H/O gastric bypass Left ulnar fracture Family History Other Breast cancer Diabetes Hypertension Social History (System 10/18/24 @ 11:39 by Nahomy Dugan) Smoking Status: Never smoker Hx Alcohol Use: Yes Hx Substance Use: No Preferred Language: Honduran Communication Ability: Effective Bowl Attendant Required: No Beliefs That Will Affect Care: None Current Living Situation: Alone Current Living Situation Comment: daughter lives across the street Feels Safe at Home: Yes Gender Identity: Female Assistive Devices: Cane and Walker Review of Systems Constitutional: no fever and no chills Respiratory: no cough and no dyspnea Cardiovascular: no chest pain Gastrointestinal: no abdominal pain, no heartburn, no coffee ground emesis, no hematemesis, no diarrhea/loose stools, no blood in stools and no melena Physical Exam Constitutional: well developed Respiratory: normal respiratory effort Gastrointestinal (Abdomen): normal bowel sounds, soft, nontender, no hepatosplenomegaly Psychiatric: Orientation: alert and oriented x 3 Results & Data Vital Signs (Past 12 Hours) Vital Signs Temp Pulse Resp BP Pulse Ox O2 Del Method 10/22/24 14:35 37.1 C 69 18 114/63 97 10/22/24 14:05 37.1 C 70 18 129/60 98 10/22/24 13:50 37.1 C 69 18 117/53 L 98 10/22/24 13:35 36.9 C 66 14 112/48 L 94 10/22/24 12:54 66 14 98 10/22/24 12:42 65 97 10/22/24 12:36 Room Air 10/22/24 12:35 65 10/22/24 12:33 65 98 10/22/24 12:24 66 13 95 10/22/24 11:28 36.7 C 76 20 90/55 L 99 Room Air PG Care Time/CCT Total # of Minutes Spent Total Time Spent with Patient: Total time spent is greater than 50% in coordination of care (as documented) at patient's floor/unit and/or counseling patient: Coding Level of Care Code 12563 INT INP/OBS CARE 3/75MIN Diagnoses Anemia, macrocytic D53.9
[2024-10-22] MEDS: MoRPHine SULFATE 2 MG/ML CARP IV STA (15:14)
--- NOTE | 2024-10-22 15:23 | Electrocardiogram Report ---
Test Reason : Blood Pressure : */* mmHG Vent. Rate : 77 BPM Atrial Rate : 77 BPM P-R Int : 158 ms QRS Dur : 94 ms QT Int : 416 ms P-R-T Axes : 68 23 114 degrees QTcB Int : 470 ms Normal sinus rhythm Nonspecific T wave abnormality Prolonged QT Abnormal ECG When compared with ECG of 28-Sep-2024 05:33, QT has lengthened Confirmed by Garrett Abdi ([id number]) on 10/22/2024 3:23:29 PM Referred By: Confirmed By: Garrett Abdi
[2024-10-22 16:14] LABS: Vitamin B12 > 1500 pg/ml (180-914)
[2024-10-22] MEDS ORDERED: ONDANSETRON INJ 2 MG/ML 2 ML VIAL IV PRN (17:01)
[2024-10-22] MEDS: ERTAPENEM 1000MG 1,000 MG/10 ML SYR IV SCH (18:15)
[2024-10-22] MEDS: POT PHOSPHATE MONOBASIC W/ SOD TAB PO SCH (18:16)
[2024-10-22] MEDS: AMIODARONE 200 MG TAB PO SCH (18:16)
[2024-10-22] MEDS: SODIUM CHLORIDE 0.9% 1,000 ML IV SCH (18:29)
[2024-10-22] MEDS ORDERED: GLUCAGON FOR INJ 1 MG VIAL SQ PRN (18:44)
[2024-10-22] MEDS ORDERED: GLUCOSE 40% GEL 15 GM TUBE PO PRN (18:44)
[2024-10-22] MEDS ORDERED: CARBOHYDRATES FOR HYPOGLYCEMIA PO PRN (18:44)
[2024-10-22] MEDS ORDERED: GLUCOSE 10 TAB/TUBE PO PRN (18:44)
[2024-10-22] MEDS ORDERED: DEXTROSE 50% 50 ML SYRINGE IV PRN (18:44)
[2024-10-22] MEDS: oxyCODONE HCL IR 5 MG TAB (IMMEDIATE RELEASE) PO SCH (22:17)
[2024-10-22] MEDS: DOXYCYCLINE HYCLATE 100 MG CAP PO SCH (22:20)
[2024-10-22] MEDS: MAGNESIUM CHLORIDE W/CALCIUM 64MG DELAYED REL TAB PO SCH (22:21)
[2024-10-22] MEDS: FERROUS SULFATE 325 MG TAB PO SCH (22:21)
[2024-10-22] MEDS: PANTOprazole 40 MG/10 ML SYR IV SCH (22:23)
[2024-10-22] MEDS: NYSTATIN POWDER 15GM BTL EXT SCH (22:26)
[2024-10-22] MEDS: INSULIN ASPART PER UNIT CHARGE SC SCH (22:36)
[2024-10-22 23:13] LABS: Hematocrit (blood only) 25.4 % (37.0-47.0); Hemoglobin 8.2 g/dl (12.0-16.0)
[2024-10-22 23:25] LABS: BUN Creatinine Ratio 46.8 (10-20); Calcium 7.1 mg/dl (8.6-10.3); Creatinine Clr Calc Pharmacy 75.5 ml/min; Potassium 3.9 mmol/L (3.5-5.1)
[2024-10-23] MEDS: ACETAMINOPHEN 325 MG TAB PO PRN (01:58)
[2024-10-23] MEDS: LEVOTHYROXINE SODIUM 125 MCG TABLET PO SCH (06:40)
[2024-10-23 06:48] LABS: Hematocrit (blood only) 23.3 % (37.0-47.0); Hemoglobin 7.6 g/dl (12.0-16.0); Mean Corpuscular Hemoglobin 30.4 pg (25.0-34.0); Mean Corpuscular Hgb Conc 32.6 g/dL (32.0-36.0); Mean Corpuscular Volume 93.2 fL (80.0-100.0); Mean Platelet Volume 9.7 fL (9.4-12.4); Platelet Count 192 K/uL (130-400); RDW Coefficient of Variation 23.6 % (11.5-14.5); RDW Standard Deviation 74.8 fL (36.4-46.3); White Blood Count 9.47 K/ul (4.8-10.8)
[2024-10-23 07:12] LABS: Calcium 6.9 mg/dl (8.6-10.3); Creatinine Clr Calc Pharmacy 74.3 ml/min; Potassium 3.9 mmol/L (3.5-5.1)
[2024-10-23] MEDS: ATORVASTATIN 40 MG TAB PO SCH (08:56)
[2024-10-23] MEDS: CHOLECALCIFEROL 125 MCG (5,000 UNITS) TAB PO SCH (08:57)
[2024-10-23] MEDS: METOPROLOL SUCC 25MG EXT REL TAB PO SCH (08:57)
[2024-10-23] MEDS: SERTRALINE HCL 50 MG TABLET PO SCH (08:58)
[2024-10-23] MEDS: CALCITONIN SALMON NA 200 IU/AC 3.7 ML BTL SCH (09:00)
[2024-10-23] MEDS ORDERED: NON-FORMULARY MEDICATION (Lidocaine 4 % adhesive patch,medicated) TOP SCH (09:00)
[2024-10-23] MEDS: LIDOCAINE 5% 1 PATCH TD SCH (09:00)
--- NOTE | 2024-10-23 09:57 | Hospitalist Progress Note ---
Date of Service October 23, 2024 Assessment & Plan (1) GI bleed: (2) Anemia, macrocytic: (3) PAF (paroxysmal atrial fibrillation): (4) Hypothyroidism: (5) Mixed hyperlipidemia: (6) GERD (gastroesophageal reflux disease): Plan Possible GI bleeding Acute blood loss anemia Presented to the hospital with low hemoglobin on outpatient lab work. This is patient's third hospitalization with similar finding. She has required multiple transfusions in previous hospitalization as well and has workup with endoscopy/colonoscopy as well. - Hgb of 6.7 on admission -Transfused 1 unit of packed RBC - Eliquis resumed sometime within the past 2 weeks (Muzzley says resumed on 10/07) will HOLD for now with acute GI bleeding, hold ASA 81 mg - Follow peripheral smear EGD 07/23 with hx of Roue-en-Y gastric bypass, no bleeding. Colonoscopy 07/19: 10 mm single ulcer in the ascending colon, nonbleeding. Medium mouthed diverticula found in the left colon. GI consulted; no plans to do endoscopy; they will consider endoscopy if there is overt bleeding. Discussion done with Dr. Veloz from cardiology; as patient has recurrent admissions with life-threatening anemia in the last few months; plan is to switch her to amiodarone long-term for rhythm control and stop anticoagulation for the time being. Patient to follow-up in cardiology clinic for possible evaluation of Watchman device. Discussed this with patient's daughter Tammy over the phone and she is in agreement with the plan.I also discussed that patient has risks of stroke while she is off Eliquis. Patient's daughter agrees that the risks of anticoagulation outweigh the benefit at this time R hip wound - Continue on ertapenum IV ( started on 1g IM on 10/20 daily x 7 day) and doxycycline 100 g PO BID (started on 10/20 x 10 d) to complete the course. - Appears to be healing well - Nursing to continue daily dressing changes, skin monitoring Paroxysmal Atrial Fibrillation -Continue rate control agents - -amiodarone 200 mg daily and metoprolol succinate 12.5 mg daily -BP is stable -EKG reviewed on admission; sinus rhythm -Eliquis stopped after discussion with cardiology HLD - Continue atorvastatin 40 mg daily DM II - ISS with accuchecks achs - hold home metformin for now Hypothyroidism - levothyroxine - TSH elevated with higher normal FT4, levothyroxine decreased to 125 mcg daily from 150 mcg daily during last admission GERD - Protonix gtt as above DVT ppx: teds, scds, hold chemical anticoagulation in the setting of GIB Lines: 2 PIV FEN/GI:diabetic diet CODE: commercial intelligence manager spent evaluating patient, direct bedside care, chart review, placing orders, interpretation of diagnostic studies, discussion with consultants, patient, and family members, as well as other required patient management activities is 50 minutes Please note the above document was generated using voice recognition software. It may contain grammatical, syntax or spelling errors. Any formal questions or concerns about the content, text or information contained within the body of this dictation should be directly addressed to the provider for clarification Admission and Anticipated Discharge Date Admission Date: October 22, 2024 Subjective Patient seen and examined at bedside. She is comfortable; not in distress No significant events overnight Continues to be in sinus rhythm Review of Systems Review of Systems: All systems reviewed & are unremarkable except as noted in Subjective Physical Exam Physical Exam: Physical Exam: Vitals signs as noted above General Appearance:Moderately built and nourished, no apparent distress Head: normocephalic, Atraumatic Eyes: normal inspection, EOMI Neck: supple, Trachea midline Respiratory/Chest: Normal breath sounds, CTA, No accessory muscle use Cardiovascular: S1, S2, +murmur Abdomen/GI:Soft, Non tender, Bowel sounds present Extremities/Musculoskeletal:normal inspection, 1+edema Neurologic/Psych:AAOX3, grossly no focal neurological deficits Skin: normal color, warm Results & Data Results & Data Vital Signs (Past 12 Hours) Vital Signs Temp Pulse Pulse Resp BP BP Pulse Ox 10/23/24 07:54 36.3 C L 64 18 100/56 L 100 10/23/24 07:49 59 L 10/23/24 03:05 36.6 C 57 L 20 104/57 L 96 10/22/24 23:37 69 10/22/24 22:54 36.4 C L 65 16 121/65 98 10/22/24 22:04 36.9 C 65 18 121/65 98 O2 Del Method 10/23/24 07:54 Room Air 10/23/24 07:49 10/23/24 03:05 Room Air 10/22/24 23:37 10/22/24 22:54 Room Air 10/22/24 22:04
[2024-10-23] MEDS: CYANOCOBALAMIN (B-12) 500 MCG TABLET PO SCH (11:04)
[2024-10-24 06:42] LABS: Basophils # (auto) 0.06 K/uL (0.00-0.20); Basophils % (auto) 0.7 %; Eosinophils # (auto) 0.08 K/uL (0.00-0.50); Hematocrit (blood only) 23.8 % (37.0-47.0); Hemoglobin 7.6 g/dl (12.0-16.0); Immature Granulocytes # (auto) 0.14 K/uL (0.01-0.20); Immature Granulocytes % (auto) 1.7 %; Lymphocytes # (auto) 1.27 K/uL (1.20-3.40); Lymphocytes % (auto) 15.5 %; Mean Corpuscular Hemoglobin 30.6 pg (25.0-34.0); Mean Corpuscular Hgb Conc 31.9 g/dL (32.0-36.0); Monocytes # (auto) 0.72 K/uL (0.11-0.59); Monocytes % (auto) 8.8 %; Neutrophils # (auto) 5.95 K/uL (1.40-6.50); Neutrophils % (auto) 72.3 %; Platelet Count 209 K/uL (130-400); RDW Coefficient of Variation 23.3 % (11.5-14.5); RDW Standard Deviation 76.4 fL (36.4-46.3); Red Blood Count 2.48 M/uL (4.20-5.40); White Blood Count 8.22 K/ul (4.8-10.8)
[2024-10-24 06:55] LABS: Calcium 6.7 mg/dl (8.6-10.3)
[2024-10-24 07:01] LABS: BUN Creatinine Ratio 38.5 (10-20); Creatinine Clr Calc Pharmacy 90.1 ml/min
[2024-10-24 07:08] LABS: Anisocytosis Present
[2024-10-24] MEDS: AMIODARONE 200 MG TAB PO SCH (08:55)
--- NOTE | 2024-10-24 09:56 | Hospitalist Progress Note ---
Date of Service October 24, 2024 Assessment & Plan (1) GI bleed: (2) Anemia, macrocytic: (3) PAF (paroxysmal atrial fibrillation): (4) Hypothyroidism: (5) Mixed hyperlipidemia: (6) GERD (gastroesophageal reflux disease): Plan Possible GI bleeding Acute blood loss anemia Presented to the hospital with low hemoglobin on outpatient lab work. This is patient's third hospitalization with similar finding. She has required multiple transfusions in previous hospitalization as well and has workup with endoscopy/colonoscopy as well. - Hgb of 6.7 on admission -Transfused 1 unit of packed RBC - Eliquis resumed sometime within the past 2 weeks ([employer] says resumed on 10/07) will HOLD for now with acute GI bleeding, hold ASA 81 mg - Follow peripheral smear EGD 07/23 with hx of Roue-en-Y gastric bypass, no bleeding. Colonoscopy 07/19: 10 mm single ulcer in the ascending colon, nonbleeding. Medium mouthed diverticula found in the left colon. GI consulted; no plans to do endoscopy; they will consider endoscopy if there is overt bleeding. Started on DVT prophylaxis with heparin given her recent hip surgery. Discussion done with Dr. Veloz from cardiology on 10/23/2024; as patient has recurrent admissions with life-threatening anemia in the last few months; plan is to switch her to amiodarone long-term for rhythm control and stop anticoagulation for the time being. Patient to follow-up in cardiology clinic for possible evaluation of Watchman device. Discussed this with patient's daughter Tammy over the phone and she is in agreement with the plan.I also discussed that patient has risks of stroke while she is off Eliquis. Patient's daughter agrees that the risks of anticoagulation outweigh the benefit at this time R hip wound - Continue on ertapenum IV ( started on 1g IM on 10/20 daily x 7 day) and doxy cycline 100 g PO BID (started on 10/20 x 10 d) to complete the course. - Appears to be healing well - Nursing to continue daily dressing changes, skin monitoring Paroxysmal Atrial Fibrillation -Continue rate control agents - -amiodarone 200 mg daily and metoprolol succinate 12.5 mg daily -BP is stable -EKG reviewed on admission; sinus rhythm -Eliquis stopped after discussion with cardiology HLD - Continue atorvastatin 40 mg daily DM II - ISS with accuchecks achs - hold home metformin for now Hypothyroidism - levothyroxine - TSH elevated with higher normal FT4, levothyroxine decreased to 125 mcg daily from 150 mcg daily during last admission GERD - on protonix bid DVT ppx: heparin Lines: 2 PIV FEN/GI:diabetic diet CODE: FULL Please note the above document was generated using voice recognition software. It may contain grammatical, syntax or spelling errors. Any formal questions or concerns about the content, text or information contained within the body of this dictation should be directly addressed to the provider for clarification Admission and Anticipated Discharge Date Admission Date: October 22, 2024 Subjective Patient seen and examined at bedside. She is comfortable; not in distress Signs remained stable and she is saturating well on room air No significant events overnight Review of Systems Review of Systems: All systems reviewed & are unremarkable except as noted in Subjective Physical Exam Physical Exam: Physical Exam: Vitals signs as noted above General Appearance:Moderately built and nourished, no apparent distress Head: normocephalic, Atraumatic Eyes: normal inspection, EOMI Neck: supple, Trachea midline Respiratory/Chest: Normal breath sounds, CTA, No accessory muscle use Cardiovascular: S1, S2, +murmur Abdomen/GI:Soft, Non tender, Bowel sounds present Extremities/Musculoskeletal:normal inspection, 1+edema Neurologic/Psych:AAOX3, grossly no focal neurological deficits Skin: normal color, warm Results & Data Results & Data Vital Signs (Past 12 Hours) Vital Signs Temp Pulse Pulse Resp BP BP Pulse Ox 10/24/24 08:24 36.8 C 66 20 114/66 97 10/24/24 07:26 61 10/24/24 02:26 36.6 C 66 18 99/50 L 95 10/24/24 01:01 62 10/23/24 23:12 36.5 C 61 19 120/66 99 O2 Del Method 10/24/24 08:24 Room Air 10/24/24 07:26 10/24/24 02:26 Room Air 10/24/24 01:01 10/23/24 23:12 Room Air
[2024-10-24] MEDS: oxyCODONE HCL IR 5 MG TAB (IMMEDIATE RELEASE) PO PRN (18:02)
[2024-10-24] MEDS: HEPARIN SOD 5,000 UNIT/0.5 ML VIAL SQ SCH (21:07)
[2024-10-25 06:17] LABS: Basophils # (auto) 0.05 K/uL (0.00-0.20); Basophils % (auto) 0.7 %; Eosinophils # (auto) 0.07 K/uL (0.00-0.50); Hematocrit (blood only) 24.3 % (37.0-47.0); Hemoglobin 7.6 g/dl (12.0-16.0); Immature Granulocytes % (auto) 1.4 %; Lymphocytes # (auto) 1.05 K/uL (1.20-3.40); Lymphocytes % (auto) 14.4 %; Mean Corpuscular Hemoglobin 30.5 pg (25.0-34.0); Mean Corpuscular Hgb Conc 31.3 g/dL (32.0-36.0); Mean Corpuscular Volume 97.6 fL (80.0-100.0); Mean Platelet Volume 9.7 fL (9.4-12.4); Monocytes # (auto) 0.84 K/uL (0.11-0.59); Monocytes % (auto) 11.5 %; Neutrophils # (auto) 5.19 K/uL (1.40-6.50); Platelet Count 209 K/uL (130-400); RDW Coefficient of Variation 23.1 % (11.5-14.5); RDW Standard Deviation 76.8 fL (36.4-46.3); Red Blood Count 2.49 M/uL (4.20-5.40)
[2024-10-25 06:34] LABS: Calcium 6.7 mg/dl (8.6-10.3); Creatinine Clr Calc Pharmacy 83.6 ml/min; Potassium 4.1 mmol/L (3.5-5.1)
[2024-10-25 06:36] LABS: Anisocytosis Present; Polychromasia 1+
[2024-10-25] MEDS: POLYETHYLENE (MIRALAX) 17 GM PACK PO SCH (12:28)
--- NOTE | 2024-10-25 13:21 | Hospitalist Progress Note ---
Date of Service October 25, 2024 Assessment & Plan (1) GI bleed: (2) Anemia, macrocytic: (3) PAF (paroxysmal atrial fibrillation): (4) Hypothyroidism: (5) Mixed hyperlipidemia: (6) GERD (gastroesophageal reflux disease): Plan Possible GI bleeding Acute blood loss anemia Presented to the hospital with low hemoglobin on outpatient lab work. This is patient's third hospitalization with similar finding. She has required multiple transfusions in previous hospitalization as well and has workup with endoscopy/colonoscopy as well. - Hgb of 6.7 on admission -Transfused 1 unit of packed RBC - Eliquis resumed sometime within the past 2 weeks ([employer] says resumed on 10/07) will HOLD for now with acute GI bleeding, hold ASA 81 mg - Follow peripheral smear EGD 07/23 with hx of Roue-en-Y gastric bypass, no bleeding. Colonoscopy 07/19: 10 mm single ulcer in the ascending colon, nonbleeding. Medium mouthed diverticula found in the left colon. GI consulted; no plans to do endoscopy; they will consider endoscopy if there is overt bleeding. Discussion done with Dr. Veloz from cardiology on 10/23/2024; as patient has recurrent admissions with life-threatening anemia in the last few months; plan is to switch her to amiodarone long-term for rhythm control and stop anticoagulation for the time being. Patient to follow-up in cardiology clinic for possible evaluation of Watchman device. Discussed this with patient's daughter Tammy over the phone and she is in agreement with the plan.I also discussed that patient has risks of stroke while she is off Eliquis. Patient's daughter agrees that the risks of anticoagulation outweigh the benefit at this time. Started on DVT prophylaxis with heparin given her recent hip surgery. R hip wound - Continue on ertapenum IV ( started on 1g IM on 10/20 daily x 7 day) and do xycycline 100 g PO BID (started on 10/20 x 10 d) to complete the course. - Appears to be healing well - Nursing to continue daily dressing changes, skin monitoring Paroxysmal Atrial Fibrillation -Continue rate control agents - -amiodarone 200 mg daily and metoprolol succinate 12.5 mg daily -BP is stable -EKG reviewed on admission; sinus rhythm -Eliquis stopped after discussion with cardiology HLD - Continue atorvastatin 40 mg daily DM II - ISS with accuchecks achs - hold home metformin for now Hypothyroidism - levothyroxine - TSH elevated with higher normal FT4, levothyroxine decreased to 125 mcg daily from 150 mcg daily during last admission GERD - on protonix bid DVT ppx: heparin Lines: 2 PIV FEN/GI:diabetic diet CODE: FULL Please note the above document was generated using voice recognition software. It may contain grammatical, syntax or spelling errors. Any formal questions or concerns about the content, text or information contained within the body of this dictation should be directly addressed to the provider for clarification Admission and Anticipated Discharge Date Admission Date: October 22, 2024 Subjective Patient seen and examined at bedside. She is comfortable; not in distress Signs remained stable and she is saturating well on room air No significant events overnight Review of Systems Review of Systems: All systems reviewed & are unremarkable except as noted in Subjective Physical Exam Physical Exam: Physical Exam: Vitals signs as noted above General Appearance:Moderately built and nourished, no apparent distress Head: normocephalic, Atraumatic Eyes: normal inspection, EOMI Neck: supple, Trachea midline Respiratory/Chest: Normal breath sounds, CTA, No accessory muscle use Cardiovascular: S1, S2, +murmur Abdomen/GI:Soft, Non tender, Bowel sounds present Extremities/Musculoskeletal:normal inspection, 1+edema Neurologic/Psych:AAOX3, grossly no focal neurological deficits Skin: normal color, warm Results & Data Results & Data Vital Signs (Past 12 Hours) Vital Signs Temp Pulse Pulse Resp BP Pulse Ox O2 Del Method 10/25/24 11:50 36.6 C 70 18 125/67 98 Room Air 10/25/24 10:49 Room Air 10/25/24 07:46 61 10/25/24 07:23 36.7 C 69 16 145/71 H 97 Room Air 10/25/24 03:29 36.7 C 66 16 121/65 99 Room Air
[2024-10-25] MEDS: oxyCODONE HCL IR 5 MG TAB (IMMEDIATE RELEASE) PO PRN (14:02)
[2024-10-25 19:18] VITALS: RESP 18
[2024-10-26 07:11] VITALS: TEMP 98.1
[2024-10-26] MEDS: SERTRALINE HCL 50 MG TABLET PO SCH (09:08)
[2024-10-26 11:05] VITALS: BP 116/57; PULSE 66; O2SAT 97
[2024-10-26] MEDS: CALCIUM CARBONATE 500 MG CHEWABLE TAB PO PRN (12:17)
--- NOTE | 2024-10-26 14:49 | Discharge Summary ---
Date of Service October 26, 2024 Admission HPI Per Admitting Provider This is a 74 yo F with PMHx of chronic diastolic CHF, paroxysmal atrial fibrillation anticoagulated on Eliquis, aortic stenosis, HTN, HLD, hypothyroidism s/p thyroidectomy due to thyroid cancer, TIA, breast cancer, v ascular dementia, and recent R hip fracture s/p intramedullary nailing on 09/25/24. She was treated post surgically for hgb of 6.3 causing hemorrhagic shock secondary to fall and right hip fracture with total of 5 U PRBCs. Pt was discharged to [facility] for rehab and was recommended that she is transfused for hgb less than 7.5. She was discharged from [facility] on 10/14/24 to [facility]. Since being there she was started on ertapenum IM and doxycycline PO started on 10/20/24 for local skin infection at the site of the R postsurgical R hip wound. Pt was restarted on Eliquis around 10/07 from outpatient review for AFib after it was held due to the bout of hemorrhagic shock as aforementioned. Upon routine outpatient labs, it was noted that her hgb dropped to the 6s and was referred here to the ER. Hgb on admission today is 6.7. Pt denies any sob, cp, dizziness or lightheadedness. She is very pale. Pt denies any abdominal pain. She admits to having a bout of nausea and dry heaves yesterday, denies any bloody bowel movements and reports constipation since being on pain medications (norco PO) for the hip surgery. Still nonweightbearing per family at bedside. She feels worn out and little exertion makes her tired. Pt took all her morning medications this morning. Last time she ate was today with breakfast. Admission Exam Per Admitting Provider General: awake, alert, no apparent distress, + pallor, + elderly white female Head: Normocephalic, atraumatic ENT: PERRL, EOMI, no pharyngeal exudate, mucous membranes slighly dry Chest: Clear to auscultation, on room air, no adventitious breath sounds Cardiac: Regular rate and rhythm, + loud holosystolic murmur with radiation to carotids, no JVD, normal peripheral pulses, good capillary refill Abdominal: NABS x 4 quadrants, soft, nondistended, nontender to palpation, no rebound or guarding Extremities: R hip surgical wound healing, no surrounding erythema, no purulent material expressed with palpation, no pain with palpation, , +2 pitting edema up to knees bilaterally, otherwise normal inspection, no peripheral erythema, calfs nontender to palpation Psych: Normal mood and affect Neuro: AAO x 3, strength intact bilaterally and rated 5/5, no motor deficits, speech is clear, no peripheral sensory deficits Principal Diagnosis Possible GI bleeding Acute blood loss anemia Discharge Exam Physical Exam: Vitals signs as noted above General Appearance:Moderately built and nourished, no apparent distress Head: normocephalic, Atraumatic Eyes: normal inspection, EOMI Neck: supple, Trachea midline Respiratory/Chest: Normal breath sounds, CTA, No accessory muscle use Cardiovascular: S1, S2, +murmur Abdomen/GI:Soft, Non tender, Bowel sounds present Extremities/Musculoskeletal:normal inspection, 1+edema Neurologic/Psych:AAOX3, grossly no focal neurological deficits Skin: normal color, warm Discharge Data Allergies Allergy/AdvReac Type Severity Reaction Status Date / Time Penicillins Allergy Intermediate Hives Verified 10/18/24 11:39 Sulfa (Sulfonamide AdvReac Severe SEVERE Verified 10/18/24 11:39 Antibiotics) NAUSEA Consultations 10/22/24 13:35 Consult Gastroenterology Routine Hospital Course (1) GI bleed: (2) Anemia, macrocytic: (3) PAF (paroxysmal atrial fibrillation): (4) Hypothyroidism: (5) Mixed hyperlipidemia: (6) GERD (gastroesophageal reflux disease): Plan Possible GI bleeding Acute blood loss anemia Presented to the hospital with low hemoglobin on outpatient lab work. This is patient's third hospitalization with similar finding. She has required multiple transfusions in previous hospitalization as well and has workup with endoscopy/colonoscopy as well. - Hgb of 6.7 on admission -Transfused 1 unit of packed RBC - Eliquis resumed sometime within the past 2 weeks ([employer] says resumed on 10/07) will HOLD for now with acute GI bleeding, hold ASA 81 mg - Follow peripheral smear EGD 07/23 with hx of Roue-en-Y gastric bypass, no bleeding. Colonoscopy 07/19: 10 mm single ulcer in the ascending colon, nonbleeding. Medium mouthed diverticula found in the left colon. GI consulted; no plans to do endoscopy; they will consider endoscopy if there is overt bleeding. Discussion done with Dr. Veloz from cardiology on 10/23/2024; as patient has recurrent admissions with life-threatening anemia in the last few months; plan is to switch her to amiodarone long-term for rhythm control and stop anticoagulation for the time being. Patient to follow-up in cardiology clinic for possible evaluation of Watchman device. Discussed this with patient's daughter Tammy over the phone and she is in agreement with the plan.I also discussed that patient has risks of stroke while she is off Eliquis. Patient's daughter agrees that the risks of anticoagulation outweigh the benefit at this time. Started on DVT prophylaxis with heparin given her recent hip surgery; To be continued till patient is more active and mobile. R hip wound Wound appeared to be healing well. Culture grew couple of organism which is sensitive to ertapenem and doxycycline. Treated for 7 days. Continue wound care at rehab. Paroxysmal Atrial Fibrillation -Continue rate control agents - -amiodarone 200 mg daily and metoprolol succinate 12.5 mg daily Mood disordersertraline increased to 50 mg once a day from 25 mg once a day Please note the above document was generated using voice recognition software. It may contain grammatical, syntax or spelling errors. Any formal questions or concerns about the content, text or information contained within the body of this dictation should be directly addressed to the provider for clarification Total Time Total Time Spent Total Time Spent (In Minutes): 45 Total Time Includes: Examination of the Patient, Discharge Planning, Medication Reconciliation, Communication With Other Providers and Other Discharge Plan Discharge Items Patient Disposition: Transfer [facility] Reason For Visit: GI BLEED, ANEMIA Activity: Resume your previous activity Non-emergency contact: Primary Care Provider Call non-emergency contact if: you have any medication questions and your symptoms worsen Follow-up/Referrals: Maged Katz MD [Primary Care Provider] - Diet: Regular Addtl Attending Provider Instructions: You were admitted to the hospital for possible GI bleed. You are transfused 1 unit of packed RBC during the hospitalization. Your GI doctor saw you during the hospitalization; no plans for endoscopy. Please follow-up with outpatient. Following medication changes have been done; You completed antibiotic course of doxycycline and ertapenem. Please continue daily wound care at the rehab. You are prescribed heparin 5000 units subcutaneous every 12 hours for the next 14 days. If you are not active/mobile in next 14 days; your physician at rehab needs to evaluate for longer duration of blood thinner to prevent blood clot. After discussion with cardiology; Eliquis has been stopped. Please continue to take amiodarone 200 mg once a day going forward. Do not to stop it 30 days as prescribed previously. Decrease the dose of oxycodone to 5 mg as needed for pain control. Take MiraLAX for constipation. Sertraline dose has been increased to 50 mg once a day Pending Studies at Discharge: No Stand-Alone Forms: My [facility] Skilled Items Patient informed of condition?: Yes DNR: No Discharge Level of Care: Skilled Communicable Disease: No Discharge Prognosis: Stable Lines: None Urinary Catheter: No Medications and DC Order Prescriptions: New sertraline 50 mg Tablet 50 mg PO QAM Qty: 60 0RF heparin, porcine (PF) 5,000 unit/0.5 mL Syringe 5,000 unit subcut Q12 14 Days Qty: 14 0RF Continued atorvastatin 40 mg tablet 40 mg PO QAM aspirin 81 mg Tablet,Delayed Release (Dr/Ec) 81 mg PO QAM Hold Instructions: Resume on 07/29/24. calcitonin (salmon) 200 unit/actuation spray,non-aerosol 1 spray intranasal (ALT) QAM nystatin 100,000 unit/gram powder 1 applic TOPICAL BID Rx Instructions: apply to abdominal folds magnesium chloride [Mag 64] 64 mg Tablet,Delayed Release (Dr/Ec) 64 mg PO BID Qty: 60 1RF pantoprazole 40 mg Tablet,Delayed Release (Dr/Ec) 40 mg PO BID Qty: 60 1RF ferrous sulfate 325 mg (65 mg iron) Tablet,Delayed Release (Dr/Ec) 325 mg PO BID Qty: 60 1RF metoprolol succinate 25 mg Tablet Extended Release 24 Hr 12.5 mg PO QAM Qty: 15 0RF Phospha 250 Neutral 250 mg Tablet 2 tab PO QID Qty: 7 0RF levothyroxine [Synthroid] 150 mcg Tablet 125 mcg PO DAILYBB Qty: 30 0RF metformin 500 mg Tablet 1,000 mg PO BIDM lorazepam [Ativan] 0.5 mg Tablet 0.5 mg PO Q8 PRN (Reason: Anxiety) Rx Instructions: not using cholecalciferol (vitamin D3) 125 mcg (5,000 unit) Tablet 125 mcg PO QAM Qty: 30 0RF cyanocobalamin (vitamin B-12) [Vitamin B-12] 1,000 mcg Tablet Extended Release 1,000 mcg PO QAM acetaminophen 650 mg Tablet Extended Release 650 mg PO TID Rx Instructions: give with oxycodone lidocaine 4 % adhesive patch,medicated 1 patch topical DAILY Qty: 15 0RF Rx Instructions: may leave on for up to 12 hrs Changed oxycodone 5 mg tablet 5 mg PO TID PRN (Reason: pain) Qty: 0 0RF Rx Instructions: takes with tylenol...ordered prn but family was instructed by [facility] foster care case manager for Dr. Katz to give it 3 times a day for control amiodarone 200 mg Tablet 200 mg PO DAILY Qty: 60 0RF Discontinued doxycycline hyclate 100 mg Tablet 100 mg PO BID Rx Instructions: Started 10/20/24 ertapenem 1 gram Recon Soln 1 g IM DAILY Rx Instructions: Started 10/20/24 Eliquis 5 mg Tablet 5 mg PO [facility] Hold Instructions: Resume on 07/29/24. sertraline 25 mg tablet 25 mg PO QAM Discharge Orders: Discharge Order (Routine); Ordered 10/26/24 Ordered By: Edvin Diamond Admission Data Admit Date/Time: 10/22/24 13:35 Attending Provider: Edvin Diamond Admit Provider: Kate Mccrary Primary Care Provider: Maged Katz Other Providers: Benito Everett Other Interventions: Discharge Summary Assessment (RN) Last Done: 10/26/24 13:13
== END 2024-10-26 13:59 | DRG 378 ==
LOC: ED 10:42 → SUATTDRO 13:35 → EDINP 13:35 → 4W 16:23